=== PATIENT | male | born 1935 | race African-American/Black ===

== ENCOUNTER 2017-08-30 17:20 | Inpatient (IN) | payer SELFPAY ==
[~2017-08-30] VITALS: Ht 170.2 cm; Wt 93.4 kg
[2017-08-30 17:28] VITALS: BP 114/75
[2017-08-30] MEDS ORDERED: FUROSEMIDE80 M1 ORAL (17:28)
[2017-08-30] MEDS ORDERED: CARVEDILOL25 MG ORAL (17:28)
[2017-08-30] MEDS ORDERED: XARELTO10 MG ORAL (17:28)
[2017-08-30] MEDS ORDERED: HYDRALAZINE HCL50 MG ORAL (17:28)
[2017-08-30] MEDS ORDERED: LISINOPRIL5 MG ORAL (17:28)
[2017-08-30 18:12] LABS: BASOPHILS % (AUTO) 1.5 % (0.0-2.0); EOSINOPHILS % (AUTO) 7.4 % (0.0-3.0); HEMATOCRIT 27.8 % (42.0-52.0); HEMOGLOBIN 8.6 G/DL (14.2-18.0); LYMPHOCYTES % (AUTO) 18.7 % (20.0-45.0); MEAN CORPUSCULAR VOLUME 90 FL (80-99); MONOCYTES % (AUTO) 12.2 % (1.0-10.0); NEUTROPHILS % (AUTO) 60.2 % (45.0-75.0); PLATELET COUNT 215 K/UL (150-450); RED CELL DISTRIBUTION WIDTH 14.3 % (11.6-14.8); WHITE BLOOD COUNT 4.2 K/UL (4.8-10.8)
[2017-08-30 18:16] LABS: INR 1.1 (0.9-1.1)
[2017-08-30 18:25] LABS: ANION GAP 11 mmol/L (5-15); BLOOD UREA NITROGEN 33 mg/dL (7-18); CALCIUM 8.9 MG/DL (8.5-10.1); CARBON DIOXIDE 26 MMOL/L (21-32); CHLORIDE 106 MMOL/L (98-107); POTASSIUM 4.3 MMOL/L (3.5-5.1); SODIUM 143 MMOL/L (136-145)
[2017-08-30 18:28] LABS: APPEARANCE,URINE CLEAR; BILIRUBIN, URINE NEGATIVE (NEGATIVE); GLUCOSE, URINE (UA) NEGATIVE (NEGATIVE); KETONES,URINE NEGATIVE (NEGATIVE); LEUKOCYTE ESTERASE ,URINE 3+ (NEGATIVE); NITRITE,URINE NEGATIVE (NEGATIVE); PH,URINE 5 (4.5-8.0); PROTEIN,URINE 2+ (NEGATIVE); UROBILINOGEN,URINE NORMAL MG/DL (0.0-1.0)
[2017-08-30 18:29] LABS: ALANINE AMINOTRANSFERASE 17 U/L (12-78); ALBUMIN 3.2 G/DL (3.4-5.0); ALBUMIN/GLOBULIN RATIO 0.7 (1.0-2.7); ALKALINE PHOSPHATASE 40 U/L (46-116); ASPARTATE AMINO TRANSFERASE 17 U/L (15-37); BILIRUBIN,TOTAL 0.6 MG/DL (0.2-1.0)
[2017-08-30 18:31] LABS: COLOR,URINE YELLOW
--- NOTE | 2017-08-30 18:42 | Emergency Room Report ---
History of Present Illness General Chief Complaint: Dyspnea/Respdistress Source: Patient Present Illness HPI This patient has a history of congestive heart failure. He states that he has been having worsening shortness of breath over the past 3 days. He states he's also noted that his abdomen has become more distended in both his legs become more swollen. He states that he ran out of his Lasix about one week ago. He states he was unable to get to the pharmacy to get a refill. He denies cough or congestion. He denies fever or chills. He denies nausea or vomiting. He has no other complaints. Allergies: Coded Allergies: No Known Allergies (Unverified , 08/30/17) Patient History Past Medical History: see triage record, HTN, FL, CAD, CHF Social History: Denies: smoking, alcohol use, drug use Reviewed Nursing Documentation: PMH: Agreed; PSxH: Agreed Nursing Documentation-PMH Hx Cardiac Problems: Yes - chf Review of Systems All Other Systems: negative except mentioned in HPI Physical Exam Vital Signs Date Time Temp Pulse Resp B/P (MAP) Pulse Ox O2 Delivery O2 Flow Rate FiO2 08/30/17 17:18 98.2 98 20 140/79 94 Nasal Cannula 3.0 98.2 Sp02 EP Interpretation: reviewed, normal General Appearance: no apparent distress, alert, GCS 15, non-toxic Head: normocephalic, atraumatic Eyes: bilateral eye normal inspection, bilateral eye PERRL ENT: hearing grossly normal, normal pharynx, no angioedema, normal voice Neck: full range of motion, supple/symm/no masses Respiratory: chest non-tender, lungs clear, normal breath sounds, no respiratory distress, no retraction, no accessory muscle use, speaking full sentences Cardiovascular #1: regular rate, rhythm, other - 3+pitting edema BLE Gastrointestinal: normal bowel sounds, non tender, soft, no guarding, no rebound, distended Rectal: deferred Musculoskeletal: back normal, normal range of motion, non-tender Neurologic: alert, oriented x3, responsive, motor strength/tone normal, sensory intact, speech normal Psychiatric: judgement/insight normal, memory normal, mood/affect normal, no suicidal/homicidal ideation Skin: normal color, no rash, warm/dry, well hydrated Medical Decision Making Diagnostic Impression: Primary Impression: CHF exacerbation Additional Impressions: Anemia Acute kidney injury Atrial fibrillation ER Course This patient presents a CHF exacerbation. He has physical exam findings consistent with right-sided heart failure. He has ascites and 3+ pitting edema. He also has anemia of uncertain chronicity. He has kidney disease that is likely baseline but I do not have any comparison labs available. Patient is also found to have atrial fibrillation. The patient is unaware if he has had this in the past. Patient had run out of his Lasix. He is given 40 of Lasix IV here in the emergency department. He remained stable without any respiratory symptoms. He is admitted for further diuresis and monitoring. Laboratory Tests Test 08/30/17 17:40 08/30/17 18:10 White Blood Count 4.2 K/UL (4.8-10.8) L Red Blood Count 3.10 M/UL (4.70-6.10) L Hemoglobin 8.6 G/DL (14.2-18.0) L Hematocrit 27.8 % (42.0-52.0) L Mean Corpuscular Volume 90 FL (80-99) Mean Corpuscular Hemoglobin 27.7 PG (27.0-31.0) Mean Corpuscular Hemoglobin Concent 30.9 G/DL (32.0-36.0) L Red Cell Distribution Width 14.3 % (11.6-14.8) Platelet Count 215 K/UL (150-450) Mean Platelet Volume 7.4 FL (6.5-10.1) Neutrophils (%) (Auto) 60.2 % (45.0-75.0) Lymphocytes (%) (Auto) 18.7 % (20.0-45.0) L Monocytes (%) (Auto) 12.2 % (1.0-10.0) H Eosinophils (%) (Auto) 7.4 % (0.0-3.0) H Basophils (%) (Auto) 1.5 % (0.0-2.0) Prothrombin Time 12.0 SEC (9.30-11.50) H Prothrombin Time INR 1.1 (0.9-1.1) PTT 32 SEC (23-33) Sodium Level 143 MMOL/L (136-145) Potassium Level 4.3 MMOL/L (3.5-5.1) Chloride Level 106 MMOL/L (98-107) Carbon Dioxide Level 26 MMOL/L (21-32) Anion Gap 11 mmol/L (5-15) Blood Urea Nitrogen 33 mg/dL (7-18) H Creatinine 2.0 MG/DL (0.55-1.30) H Estimate Glomerular Filtration Rate mL/min (>60) Glucose Level 123 MG/DL (74-106) H Calcium Level 8.9 MG/DL (8.5-10.1) Total Bilirubin 0.6 MG/DL (0.2-1.0) Aspartate Amino Transferase (AST) 17 U/L (15-37) Alanine Aminotransferase (ALT) 17 U/L (12-78) Alkaline Phosphatase 40 U/L (46-116) L Troponin I 0.027 ng/mL (0.000-0.056) Pro-B-Type Natriuretic Peptide 81221 pg/mL (0-125) H Total Protein 8.1 G/DL (6.4-8.2) Albumin 3.2 G/DL (3.4-5.0) L Globulin 4.9 g/dL Albumin/Globulin Ratio 0.7 (1.0-2.7) L Urine Color Yellow Urine Appearance Clear Urine pH 5 (4.5-8.0) Urine Specific [place] 1.015 (1.005-1.035) Urine Protein 2+ (NEGATIVE) H Urine Glucose (UA) Negative (NEGATIVE) Urine Ketones Negative (NEGATIVE) Urine Occult Blood 4+ (NEGATIVE) H Urine Nitrite Negative (NEGATIVE) Urine Bilirubin Negative (NEGATIVE) Urine Urobilinogen Normal MG/DL (0.0-1.0) Urine Leukocyte Esterase 3+ (NEGATIVE) H Urine RBC Pending Urine WBC Pending Urine Squamous Epithelial Cells Pending Urine Bacteria Pending EKG Diagnostic Results Rate: normal Rhythm: other - A.fib Rhythm Strip Diag. Results EP Interpretation: yes Rate: 80's Rhythm: other - A.fib Chest X-Ray Diagnostic Results Chest X-Ray Diagnostic Results : Chest X-Ray Ordered: Yes # of Views/Limited/Complete: 1 View Indication: Shortness of Breath EP Interpretation: Yes Interpretation: other - Cardiomegaly Impression: Other - Cardiomegaly Electronically Signed by: Gil Last Vital Signs Date Time Temp Pulse Resp B/P (MAP) Pulse Ox O2 Delivery O2 Flow Rate FiO2 08/30/17 17:28 90 23 Room Air 3.0 08/30/17 17:28 98.2 114/75 100 98.2 Disposition: ADMITTED INPATIENT Condition: Serious CLAUDETTE DICKERSON D.O. Aug 30, 2017 18:42
[2017-08-30 19:50] VITALS: BP 130/66
[2017-08-30 20:00] VITALS: BP 114/60
[2017-08-30] MEDS ORDERED: Carvedilol 25mg Tab ORAL SCH (21:30)
[2017-08-30] MEDS: Xarelto 15mg tab ORAL SCH (22:23)
[2017-08-30] MEDS: Nitroglycerin 2% oint pkt TOPIC SCH (22:24)
[2017-08-31] VITALS: BP 105/63
[2017-08-31] MEDS: HydrALAZINE 25mg tab ORAL SCH ×4 (00:44→18:17)
--- NOTE | 2017-08-31 02:00 | Consultation ---
DATE OF CONSULTATION: 08/30/2017 CARDIOLOGY CONSULTATION CONSULTING PHYSICIAN: Kieran Cordero M.D. REQUESTING PHYSICIAN: Kt Waldron M.D. REASON FOR CONSULTATION: Acute on chronic congestive heart failure. HISTORY OF PRESENT ILLNESS: This is an 81-year-old male. He is usually on diuretics, but his prescription ran out over a week ago. He was unable to fill it. He notes progressive shortness of breath and leg swelling over the past three days predominantly and also abdominal bloating. He denies any chest pain, cough, congestion, sputum production, nausea, vomiting or diarrhea. He has had episodes like this in the past. PAST MEDICAL HISTORY: Coronary artery disease, history of myocardial infarction, history of congestive heart failure, and hypertension with hypertensive heart disease. SOCIAL HISTORY: Negative for smoking, alcohol, or substance abuse. FAMILY HISTORY: Not known. MEDICATIONS: Prior to admission, reviewed and reconciled. Compliance with medications as noted above. REVIEW OF SYSTEMS: A 10-point review of systems performed, all systems negative other than noted above. PHYSICAL EXAMINATION: VITAL SIGNS: Blood pressure 140/79, pulse 98, respiratory rate 20, afebrile, and oxygen saturation on 3 liters 94%. HEENT: Facial hair limit the exam of neck. Conjunctivae are pink. Sclerae are anicteric. Oropharynx clear. NECK: Supple. Cannot assess jugular venous pressure. LUNGS: Bilateral rales. CARDIAC: Irregularly irregular rhythm. Normal S1 and S2. A 1/6 systolic murmur at apex. ABDOMEN: Soft and nontender. Moderately obese with ascites. EXTREMITIES: Revealed 2+ bilateral dependent pitting edema. DIAGNOSTIC AND LABORATORY DATA: Chest x-ray reveals cardiomegaly and pulmonary venous congestion. EKG with atrial fibrillation, nonspecific ST-T wave changes. Ventricular rate 80. Urinalysis with 4+ occult blood, 2+ protein, and glucose 123. Pro-natriuretic peptide is over 25,000. Albumin 3.2. BUN 33, creatinine 2.0, sodium 143, potassium 4.3, and bicarbonate 26. White count 4.2 and hemoglobin 8.6. IMPRESSION: 1. Acute on chronic systolic and diastolic congestive heart failure due to noncompliance with baseline medication regimen. 2. Ischemic and hypertensive cardiomyopathy. 3. Anemia, etiology unclear. 4. Chronic kidney disease, question acute component. 5. Mild protein-calorie malnutrition. RECOMMENDATION: Cardiac monitoring. Repeat troponin level. Check thyroid function. Reassess chemistry panel. Adkins catheter. IV diuretics. Anemia panel. Titrate anti-failure regimen. Check lipid panel. Hold anti-platelet therapy until GI bleeding is ruled out. Kieran Cordero M.D. DR: OLINDA JOB#: [id number] CC:
[2017-08-31 04:00] VITALS: BP 103/61
[2017-08-31] MEDS: Nitroglycerin 2% oint pkt TOPIC SCH ×3 (05:45→18:17)
[2017-08-31 07:24] LABS: BASOPHILS % (AUTO) 0.9 % (0.0-2.0); EOSINOPHILS % (AUTO) 5.7 % (0.0-3.0); HEMATOCRIT 25.2 % (42.0-52.0); LYMPHOCYTES % (AUTO) 16.5 % (20.0-45.0); MEAN CORPUSCULAR VOLUME 90 FL (80-99); MONOCYTES % (AUTO) 10.2 % (1.0-10.0); NEUTROPHILS % (AUTO) 66.8 % (45.0-75.0); PLATELET COUNT 186 K/UL (150-450); RED BLOOD COUNT 2.81 M/UL (4.70-6.10); RED CELL DISTRIBUTION WIDTH 14.2 % (11.6-14.8); WHITE BLOOD COUNT 3.9 K/UL (4.8-10.8)
[2017-08-31 07:38] LABS: CHOLESTEROL 82 MG/DL (< 200); HDL CHOLESTEROL 41 MG/DL (40-60); TRIGLYCERIDES 30 MG/DL (30-150)
[2017-08-31 07:50] LABS: ALANINE AMINOTRANSFERASE 16 U/L (12-78); ALBUMIN/GLOBULIN RATIO 0.7 (1.0-2.7); ALKALINE PHOSPHATASE 33 U/L (46-116); ANION GAP 9 mmol/L (5-15); ASPARTATE AMINO TRANSFERASE 13 U/L (15-37); BILIRUBIN,TOTAL 0.6 MG/DL (0.2-1.0); BLOOD UREA NITROGEN 33 mg/dL (7-18); CALCIUM 8.7 MG/DL (8.5-10.1); CARBON DIOXIDE 28 MMOL/L (21-32); CHLORIDE 106 MMOL/L (98-107); POTASSIUM 4.4 MMOL/L (3.5-5.1); SODIUM 143 MMOL/L (136-145)
[2017-08-31 08:00] VITALS: BP 127/86
[2017-08-31 08:09] LABS: % IRON SATURATION 11 % (15-50); IRON 30 ug/dL (50-175); TOTAL IRON BINDING CAPACITY 263 ug/dL (250-450)
--- NOTE | 2017-08-31 09:54 | History & Physical ---
History and Physical History & Physicial HISTORY OF PRESENT ILLNESS: This is an 81-year-old male. He is usually on diuretics, but his prescription ran out over a week ago. He was unable to fill it. He notes progressive shortness of breath and leg swelling over the past three days predominantly and also abdominal bloating. He denies any chest pain, cough, congestion, sputum production, nausea, vomiting or diarrhea. He has had episodes like this in the past. PAST MEDICAL HISTORY: Coronary artery disease, history of myocardial infarction, history of congestive heart failure, and hypertension with hypertensive heart disease. SOCIAL HISTORY: Negative for smoking, alcohol, or substance abuse. FAMILY HISTORY: Not known. MEDICATIONS: Prior to admission, reviewed and reconciled. Compliance with medications as noted above. REVIEW OF SYSTEMS: A 10-point review of systems performed, all systems negative other than noted above. PHYSICAL EXAMINATION: VITAL SIGNS: Blood pressure 140/79, pulse 98, respiratory rate 20, afebrile, and oxygen saturation on 3 liters 94%. HEENT: Facial hair limit the exam of neck. Conjunctivae are pink. Sclerae are anicteric. Oropharynx clear. NECK: Supple. Cannot assess jugular venous pressure. LUNGS: Bilateral rales. CARDIAC: Irregularly irregular rhythm. Normal S1 and S2. A 1/6 systolic murmur at apex. ABDOMEN: Soft and nontender. Moderately obese with ascites. EXTREMITIES: Revealed 2+ bilateral dependent pitting edema. DIAGNOSTIC AND LABORATORY DATA: Chest x-ray reveals cardiomegaly and pulmonary venous congestion. EKG with atrial fibrillation, nonspecific ST-T wave changes. Ventricular rate 80. Urinalysis with 4+ occult blood, 2+ protein, and glucose 123. Pro-natriuretic peptide is over 25,000. Albumin 3.2. BUN 33, creatinine 2.0, sodium 143, potassium 4.3, and bicarbonate 26. White count 4.2 and hemoglobin 8.6. IMPRESSION: 1. Acute on chronic systolic and diastolic congestive heart failure due to noncompliance with baseline medication regimen. 2. Ischemic and hypertensive cardiomyopathy. 3. Anemia, etiology unclear. 4. Chronic kidney disease, question acute component. 5. Mild protein-calorie malnutrition. RECOMMENDATION: Cardiac monitoring. Repeat troponin level. Check thyroid function. Reassess chemistry panel. Adkins catheter. IV diuretics. Anemia panel. Titrate anti-failure regimen. Check lipid panel. Hold anti-platelet therapy until GI bleeding is ruled out. Vinnie Díaz Omar Syed MD Aug 31, 2017 09:54
--- NOTE | 2017-08-31 10:11 | Diagnostic Imaging Report ---
Indication: Shortness of breath Technique: One view of the chest Comparison: none Findings: The heart is markedly enlarged. The lungs and pleural spaces are clear. Impression: Cardiomegaly. No acute process
[2017-08-31] MEDS: Xarelto 15mg tab ORAL SCH (10:37)
[2017-08-31] MEDS: Carvedilol 25mg Tab ORAL SCH ×2 (10:37→20:17)
[2017-08-31] MEDS: Lisinopril 20mg tab ORAL SCH (10:37)
[2017-08-31 12:00] VITALS: BP 117/59
--- NOTE | 2017-08-31 13:37 | Cardiology Report ---
APPROVED REPORT EXAM: Two-dimensional and M-mode echocardiogram with Doppler and color Doppler. INDICATION Congestive Heart Failure M-Mode DIMENSIONS IVSd0.7 (0.7-1.1cm)Left Atrium (MM)5.5 (1.6-4.0cm) LVDd6.4 (3.5-5.6cm)Aortic Root4.1 (2.0-3.7cm) PWd1.3 (0.7-1.1cm)Aortic Cusp Exc.2.2 (1.5-2.0cm) IVSs0.9 cm LVDs5.7 (2.5-4.0cm) PWs1.6 cm Moderate left ventricular enlargement. Severe global left ventricular hypokinesis. Abnormal septal motion. Anterior wall dyskinesis. Left ventricular ejection fraction estimated to be 15-20 %. Increased E point-interventricular septal separation c/w left ventricular dysfunction. No evidence of left ventricular hypertrophy. Small circumferential pericardial effusion. Large posterior pleural effusion with debris noted. Moderate left atrial enlargement. Severe right atrial enlargement. Moderate right ventricular enlargement. Focal aortic valve sclerosis with adequate cusp excursion. Thickened mitral valve leaflets with normal excursion. Mitral annulus and aortic root calcification. Aortic root dilatation. Normal pulmonic valve structure. Normal tricuspid valve structure. IVC dilated at 3.0 cm without physiologic collapse suggestive of increased RA pressure. A color flow and spectral Doppler study was performed and revealed: Mild aortic regurgitation. Moderate to severe posteriorly eccentric mitral regurgitation. Mitral inflow indicates restrictive pattern, implying severely elevated left atrial pressure (Grade III). Severe tricuspid regurgitation. Tricuspid systolic velocities suggests peak right ventricular systolic pressure of 86 mmHg, consistent with severe pulmonary hypertension. Mild pulmonic regurgitation present.
[2017-08-31 16:00] VITALS: BP 113/71
[2017-08-31 20:00] VITALS: BP 102/63
[2017-09-01] VITALS: BP 111/70
--- NOTE | 2017-09-01 01:30 | Progress Note ---
DATE: 08/31/2017 CARDIOLOGY PROGRESS NOTE SUBJECTIVE: The patient has no new chest pain. No shortness of breath. Still some congestion. He is responding to diuretics. Monitored rhythm is atrial fibrillation. OBJECTIVE: VITAL SIGNS: Vitals 113/77, pulse 80, respirations 20, afebrile, and room air oxygen saturation 97%. LUNGS: Bilateral rales. HEART: Irregularly irregular rhythm. Normal S1, S2. ABDOMEN: Soft. EXTREMITIES: A 1+ edema. LABORATORY DATA: White count 3.9 and hemoglobin 8. Potassium 4.4, BUN 33, and creatinine 2.0. Troponin 0.037. LDL cholesterol 45. Iron saturation is 11%. Total iron is 30. Stool occult blood is negative. IMPRESSION: 1. Acute on chronic diastolic congestive heart failure. 2. Severe anemia. 3. Acute on chronic systolic congestive heart failure. 4. Severe anemia. 5. Dilated cardiomyopathy with ejection fraction less than 25%. 6. Chronic kidney disease. 7. Pulmonary hypertension. PLAN: 1. May need transfusion. 2. Continue diuresis. 3. Maximize anti-failure therapy. 4. DVT prophylaxis. 5. If performance status is adequate in the future, a defibrillator may be considered following an evaluation for reversible ischemia. Kieran Cordero M.D. DR: CAITLIN JOB#: [id number] CC:
[2017-09-01 04:00] VITALS: BP 121/78
[2017-09-01] MEDS: Nitroglycerin 2% oint pkt TOPIC SCH ×3 (05:34→17:19)
[2017-09-01] MEDS: HydrALAZINE 25mg tab ORAL SCH ×4 (05:34→17:19)
[2017-09-01 08:00] VITALS: BP 126/52
[2017-09-01] MEDS: Xarelto 15mg tab ORAL SCH (08:30)
[2017-09-01] MEDS: Carvedilol 25mg Tab ORAL SCH ×2 (08:30→20:58)
[2017-09-01] MEDS: Lisinopril 20mg tab ORAL SCH (08:30)
--- NOTE | 2017-09-01 08:42 | Pulmonology Progress Note ---
Assessment/Plan Assessment/Plan IMPRESSION: 1. Acute on chronic systolic and diastolic congestive heart failure due to noncompliance with baseline medication regimen. 2. Ischemic and hypertensive cardiomyopathy. 3. Anemia, etiology unclear. 4. Chronic kidney disease, question acute component. 5. Mild protein-calorie malnutrition. RECOMMENDATION: DC Adkins catheter. IV diuretics. Titrate anti-failure regimen. Resume Xarelto Dc planning for home in AM Subjective Interval Events: Hgb 8; feeling better Constitutional: Reports: no symptoms HEENT: Repors: no symptoms Respiratory: Reports: no symptoms Cardiovascular: Reports: no symptoms Gastrointestinal/Abdominal: Reports: no symptoms Allergies: Coded Allergies: No Known Allergies (Unverified , 08/30/17) Objective Last 24 Hour Vital Signs Date Time Temp Pulse Resp B/P (MAP) Pulse Ox O2 Delivery O2 Flow Rate FiO2 09/01/17 08:30 126/52 09/01/17 08:30 74 126/52 09/01/17 08:00 97.7 74 20 126/52 100 Room Air 97.7 09/01/17 05:34 121/78 09/01/17 05:34 121/78 09/01/17 04:00 79 09/01/17 04:00 98.0 80 20 121/78 97 Room Air 98.0 09/01/17 00:00 77 09/01/17 00:00 97.5 76 20 111/70 96 Room Air 97.5 09/01/17 00:00 108/70 08/31/17 20:17 91 110/65 08/31/17 20:00 98.6 91 20 102/63 97 Room Air 98.6 08/31/17 20:00 83 08/31/17 18:17 113/77 08/31/17 18:17 113/77 08/31/17 16:00 97.3 80 20 113/71 97 Room Air 97.3 08/31/17 16:00 71 08/31/17 12:42 117/59 08/31/17 12:41 117/59 08/31/17 12:00 75 08/31/17 12:00 97.6 75 20 117/59 97 Room Air 97.6 08/31/17 10:37 127/66 08/31/17 10:37 87 127/66 Intake and Output 08/31/17 09/01/17 19:00 07:00 Intake Total 295 ml 200 ml Output Total 700 ml 1200 ml Balance -405 ml -1000 ml Intake Oral 295 ml 200 ml Output Urine Total 700 ml 1200 ml General Appearance: no acute distress HEENT: normocephalic Respiratory/Chest: chest wall non-tender, lungs clear Cardiovascular: normal peripheral pulses, edema Abdomen: normal bowel sounds Microbiology Date/Time Source Procedure Growth Status 08/30/17 18:10 Urine,Clean Catch Urine Culture - Preliminary Resulted Current Medications Medications (Trade) Dose Ordered Sig/Saul Route PRN Reason Start Time Stop Time Status Last Admin Dose Admin Carvedilol (Coreg) 25 mg EVERY 12 HOURS ORAL 08/31/17 09:00 09/30/17 08:59 09/01/17 08:30 Furosemide (Lasix) 40 mg EVERY 12 HOURS IV 08/31/17 09:00 09/30/17 08:59 09/01/17 08:30 Hydralazine HCl (Apresoline) 25 mg Q6HR ORAL 08/31/17 00:00 09/30/17 00:00 09/01/17 05:34 Lisinopril (Prinivil) 20 mg DAILY ORAL 08/31/17 09:00 09/30/17 08:59 09/01/17 08:30 Nitroglycerin (Nitro-Bid) 1 inch TID@0600,1200,1800 TOPIC 08/30/17 21:30 09/29/17 21:29 09/01/17 05:34 Potassium Chloride (K-Dur) 20 meq DAILY ORAL 08/30/17 21:30 09/29/17 21:29 09/01/17 08:30 Rivaroxaban (Xarelto) 15 mg DAILY ORAL 08/30/17 21:40 09/29/17 21:39 09/01/17 08:30 Kt Waldron MD Sep 01, 2017 08:42
[2017-09-01 12:00] VITALS: BP 104/62
[2017-09-01 16:00] VITALS: BP 115/96
[2017-09-01 20:00] VITALS: BP 115/72
[2017-09-02] VITALS: BP 111/58
[2017-09-02] MEDS: HydrALAZINE 25mg tab ORAL SCH ×2 (00:11→06:07)
--- NOTE | 2017-09-02 02:30 | Progress Note ---
DATE: 09/01/2017 CARDIOLOGY PROGRESS NOTE SUBJECTIVE: Less shortness of breath. Leg swelling. Catheter removed. OBJECTIVE: VITAL SIGNS: Blood pressure 126/52, pulse 74 and respiratory rate 20. LUNGS: With diminished breath sounds. CARDIAC: Regular rhythm and rate. Normal S1 and S2 with a 1/6 systolic murmur at apex. ABDOMEN: Soft. EXTREMITIES: With dependent edema. IMPRESSION: 1. Acute on chronic systolic congestive heart failure. 2. Ischemic and hypertensive cardiomyopathy. 3. Pulmonary hypertension. 4. Mild protein-calorie malnutrition. PLAN: 1. Transition from IV to oral diuretics. 2. Continue remainder anti-failure regimen without change. 3. Outpatient dietary restriction of sodium. 4. Agree with discharge planning. Kieran Cordero M.D. DR: ELODIA JOB#: [id number] CC:
[2017-09-02 04:00] VITALS: BP 110/80
[2017-09-02] MEDS: Nitroglycerin 2% oint pkt TOPIC SCH (06:07)
[2017-09-02 06:56] LABS: BASOPHILS % (AUTO) 1.1 % (0.0-2.0); EOSINOPHILS % (AUTO) 5.6 % (0.0-3.0); HEMATOCRIT 24.9 % (42.0-52.0); HEMOGLOBIN 8.4 G/DL (14.2-18.0); LYMPHOCYTES % (AUTO) 14.9 % (20.0-45.0); MEAN CORPUSCULAR VOLUME 89 FL (80-99); NEUTROPHILS % (AUTO) 67.5 % (45.0-75.0); PLATELET COUNT 186 K/UL (150-450); RED BLOOD COUNT 2.79 M/UL (4.70-6.10); WHITE BLOOD COUNT 4.3 K/UL (4.8-10.8)
[2017-09-02 07:14] LABS: ALANINE AMINOTRANSFERASE 12 U/L (12-78); ALBUMIN 2.9 G/DL (3.4-5.0); ALBUMIN/GLOBULIN RATIO 0.7 (1.0-2.7); ALKALINE PHOSPHATASE 31 U/L (46-116); ANION GAP 6 mmol/L (5-15); ASPARTATE AMINO TRANSFERASE 9 U/L (15-37); BILIRUBIN,TOTAL 0.8 MG/DL (0.2-1.0); BLOOD UREA NITROGEN 37 mg/dL (7-18); CALCIUM 8.7 MG/DL (8.5-10.1); CARBON DIOXIDE 30 MMOL/L (21-32); CHLORIDE 106 MMOL/L (98-107); CREATININE 2.4 MG/DL (0.55-1.30); POTASSIUM 4.1 MMOL/L (3.5-5.1); SODIUM 142 MMOL/L (136-145)
[2017-09-02 08:00] VITALS: BP 107/64
[2017-09-02 08:53] VITALS: BP 107/64
[2017-09-02] MEDS: Xarelto 15mg tab ORAL SCH (08:53)
[2017-09-02] MEDS: Lisinopril 20mg tab ORAL SCH (08:53)
[2017-09-02] MEDS: Carvedilol 25mg Tab ORAL SCH (08:53)
--- NOTE | 2017-09-02 09:03 | Pulmonology Progress Note ---
Assessment/Plan Assessment/Plan IMPRESSION: 1. Acute on chronic systolic and diastolic congestive heart failure due to noncompliance with baseline medication regimen. 2. Ischemic and hypertensive cardiomyopathy. 3. Anemia, etiology unclear. 4. Chronic kidney disease 5. Mild protein-calorie malnutrition. 6. Ascites RECOMMENDATION: Will request abd paracentesis DC planning for home Subjective Interval Events: Noted abdominal distention Constitutional: Reports: no symptoms HEENT: Repors: no symptoms Respiratory: Reports: dry cough Cardiovascular: Reports: no symptoms Genitourinary: Reports: no symptoms Neurologic: Reports: no symptoms Allergies: Coded Allergies: No Known Allergies (Unverified , 08/30/17) Objective Last 24 Hour Vital Signs Date Time Temp Pulse Resp B/P (MAP) Pulse Ox O2 Delivery O2 Flow Rate FiO2 09/02/17 08:53 107/64 09/02/17 08:53 85 107/64 09/02/17 08:00 99.0 85 20 107/64 98 Room Air 99.0 09/02/17 06:07 110/80 09/02/17 06:07 110/80 09/02/17 04:00 99.1 68 19 110/80 98 Room Air 99.1 09/02/17 04:00 71 09/02/17 00:11 115/72 09/02/17 00:00 98.1 79 20 111/58 96 Room Air 98.1 09/02/17 00:00 75 09/01/17 20:58 72 115/72 09/01/17 20:00 76 09/01/17 20:00 98.1 72 18 115/72 96 Room Air 98.1 09/01/17 17:19 115/96 09/01/17 17:19 115/96 09/01/17 16:00 60 09/01/17 16:00 97.8 63 18 115/96 96 Room Air 97.8 09/01/17 12:55 104/62 09/01/17 12:53 104/62 09/01/17 12:00 60 09/01/17 12:00 98.0 73 20 104/62 97 Room Air 98.0 Intake and Output 09/01/17 09/02/17 19:00 07:00 Intake Total 360 ml 240 ml Output Total 600 ml 1150 ml Balance -240 ml -910 ml Intake Oral 360 ml 240 ml Output Urine Total 600 ml 1150 ml # Voids 1 General Appearance: no acute distress HEENT: normocephalic Respiratory/Chest: chest wall non-tender, decreased breath sounds Cardiovascular: normal peripheral pulses, normal rate Abdomen: normal bowel sounds, distended Extremities: no cyanosis Skin: no rash Microbiology Date/Time Source Procedure Growth Status 08/30/17 18:10 Urine,Clean Catch Urine Culture - Preliminary Resulted Laboratory Tests 09/02/17 06:00: White Blood Count 4.3L, Red Blood Count 2.79L, Hemoglobin 8.4L, Hematocrit 24.9L , Mean Corpuscular Volume 89, Mean Corpuscular Hemoglobin 30.2, Mean Corpuscular Hemoglobin Concent 33.9, Red Cell Distribution Width 14.0, Platelet Count 186, Mean Platelet Volume 7.6, Neutrophils (%) (Auto) 67.5, Lymphocytes (% ) (Auto) 14.9L, Monocytes (%) (Auto) 11.0H, Eosinophils (%) (Auto) 5.6H, Basophils (%) (Auto) 1.1, Sodium Level 142, Potassium Level 4.1, Chloride Level 106, Carbon Dioxide Level 30, Anion Gap 6, Blood Urea Nitrogen 37H, Creatinine 2.4H, Estimat Glomerular Filtration Rate , Glucose Level 95, Calcium Level 8.7, Magnesium Level 2.1, Total Bilirubin 0.8, Aspartate Amino Transf (AST/SGOT) 9L, Alanine Aminotransferase (ALT/SGPT) 12, Alkaline Phosphatase 31L, Pro-B-Type Natriuretic Peptide 25203I, Total Protein 7.3, Albumin 2.9L, Globulin 4.4, Albumin/Globulin Ratio 0.7L Current Medications Medications (Trade) Dose Ordered Sig/Saul Route PRN Reason Start Time Stop Time Status Last Admin Dose Admin Carvedilol (Coreg) 25 mg EVERY 12 HOURS ORAL 08/31/17 09:00 09/30/17 08:59 09/02/17 08:53 Furosemide (Lasix) 40 mg EVERY 12 HOURS IV 08/31/17 09:00 09/30/17 08:59 09/02/17 08:52 Hydralazine HCl (Apresoline) 25 mg Q6HR ORAL 08/31/17 00:00 09/30/17 00:00 09/02/17 06:07 Lisinopril (Prinivil) 20 mg DAILY ORAL 08/31/17 09:00 09/30/17 08:59 09/02/17 08:53 Nitroglycerin (Nitro-Bid) 1 inch TID@0600,1200,1800 TOPIC 08/30/17 21:30 09/29/17 21:29 09/02/17 06:07 Potassium Chloride (K-Dur) 20 meq DAILY ORAL 08/30/17 21:30 09/29/17 21:29 09/02/17 08:52 Rivaroxaban (Xarelto) 15 mg DAILY ORAL 08/30/17 21:40 09/29/17 21:39 09/02/17 08:53 Kt Waldron MD Sep 02, 2017 09:03
--- NOTE | 2017-09-02 23:00 | Progress Note ---
DATE: 09/02/2017 CARDIOLOGY PROGRESS NOTE SUBJECTIVE: Shortness of breath has improved significantly. The patient has no pain. OBJECTIVE: VITAL SIGNS: Blood pressure 107/64, pulse 85, respirations 18, and temperature 99.1. LUNGS: Diminished breath sounds. No wheezing. HEART: Regular rhythm and rate. Normal S1, S2. There is a 1/6 systolic apical murmur. ABDOMEN: Soft. Slight ascites. EXTREMITIES: 1+ edema. IMPRESSION: 1. Acute on chronic systolic congestive heart failure. 2. Pulmonary hypertension. 3. Ischemic and hypertensive cardiomyopathy. PLAN: 1. Hold diuretics. 2. Outpatient compliance will be stressed. 3. Remainder of anti-failure regimen reviewed and reconciled for discharge. 4. Outpatient followup. 5. Monitor weights and adjust diuretics accordingly based on outpatient lifestyle, diet, and oral intake. Kieran Cordero M.D. DR: CAITLIN JOB#: [id number] CC:
--- NOTE | 2017-09-03 08:56 | Discharge Summary ---
Discharge Summary Discharge Summary _ DATE OF ADMISSION: 08/30/2017 DATE OF DISCHARGE: 09/02/2017 CONSULTANTS: Dr. Kieran Cordero BRIEF HOSPITAL COURSE: Patient is an 81-year-old -[place] male, with history of coronary artery disease, VA, CHF, hypertension with hypertensive heart disease presented to ED complaining of progressive shortness of breath and leg swelling over the past 3 days, and also abdominal bloating. He was usually on diuretics and prescription ran out over a week ago. He denied fever or chills, denied nausea or vomiting. On evaluation at ED, physical examination was consistent with right-sided heart failure. He had ascites and 3+ pitting edema. He also had anemia of uncertain chronicity he had kidney disease that is likely baseline. BNP was over 25,000. EKG was in atrial fibrillation at controlled rate. Chest x-ray showed cardiomegaly with no acute process. He was then admitted for CHF exacerbation. Patient underwent cardiac monitoring. Troponins were monitored. He was seen by machine maintenance mechanic. He was given anti-failure regimen, Coreg and lisinopril. He was given Lasix for diuresis and was also on hydralazine 25 mg every 6 hours. He was given potassium supplements. Echocardiogram done showed left ventricular ejection fraction 15-20% with severe global left ventricular hypokinesis, abnormal septal motion, anterior wall dyskinesis. There was mild aortic regurgitation, moderate to severe mitral regurgitation, severe pulmonary hypertension. He was also noted to have anemia, anemia workup showed low serum iron at 30. Stool OB was negative. He was eventually re- started on Xarelto. Shortness of breath significantly improved. Troponins were negative. He was then cleared for discharge home. FINAL DIAGNOSES: Acute on chronic systolic and diastolic congestive heart failure due to noncompliance with baseline medication regimen Ischemic and hypertensive cardiomyopathy Anemia Chronic kidney disease Mild protein calorie malnutrition Ascites Pulmonary hypertension DISPOSITION: Patient was discharged home. DISCHARGE MEDICATIONS: Refer to Discharge Medication List. DISCHARGE INSTRUCTIONS: Follow up with PCP in a week. Will need paracentesis as outpatient. I have been assigned to dictate discharge summary on this account, and I was not involved in the patient's management. Pauline Melissa NP Sep 03, 2017 08:56
== END 2017-09-02 12:06 | disposition home or self-care (01) | DRG 291 ==
LOC: EDBD 17:20 → EMR 17:53 → ENRESERV 18:28 → 2E 18:35 → EDBEDREQ 18:54
DX: I13.0 Hypertensive heart and chronic kidney disease with heart failure and stage 1 through stage 4 chronic kidney disease, or unspecified chronic kidney disease (principal); I50.43 Acute on chronic combined systolic (congestive) and diastolic (congestive) heart failure; R18.8 Other ascites; E44.1 Mild protein-calorie malnutrition; N18.9 Chronic kidney disease, unspecified; I27.20 Pulmonary hypertension, unspecified; I25.5 Ischemic cardiomyopathy; I48.91 Unspecified atrial fibrillation; I25.10 Atherosclerotic heart disease of native coronary artery without angina pectoris; I25.2 Old myocardial infarction; D64.9 Anemia, unspecified; I34.0 Nonrheumatic mitral (valve) insufficiency; Z79.01 Long term (current) use of anticoagulants; Z68.32 Body mass index [BMI] 32.0-32.9, adult
CPT/HCPCS: 36415; 71045; 80053; 80061; 81003; 82270; 82607; 82746; 83540; 83550; 83735; 83880; 84443; 84484; 85025; 85610; 85730; 87086; 87181; 93005; 93306; 99285; J8499

== ENCOUNTER 2017-10-07 06:13 | Inpatient (IN) | payer MEDICAID ==
[~2017-10-07] VITALS: Ht 167.6 cm; Wt 73.5 kg
[2017-10-07] VITALS (7 sets, daily range): BP systolic 92–116; BP diastolic 55–73
[~2017-10-07 06:13] MED LIST: CARVEDILOL25 MG ORAL; FUROSEMIDE80 M1 ORAL; HYDRALAZINE HCL50 MG ORAL; LISINOPRIL5 MG ORAL; XARELTO10 MG ORAL
[2017-10-07] MEDS ORDERED: Morphine Sulfate 2mg/ml Inj IVP ONE (06:45)
--- NOTE | 2017-10-07 06:58 | Emergency Room Report ---
History of Present Illness General Chief Complaint: Abdominal Pain Source: Patient, EMS Present Illness HPI Patient presents with abdominal pain. Patient has a history of cirrhosis and ascites. He last had 5 L taken off of his abdomen 2-1/2 weeks ago. His abdomen is distended and painful diffusely. He is urinating and moving his bowels. She states his bowels have been dark. He denies any vomiting. He is somewhat short of breath. He has a nonproductive cough that has clear phlegm. He rates the pain at 10/10 diffuse constant nonradiating. The breathing in part is due to the pressure from his stomach. No fevers. No extremity pain. The legs are swollen also. Some decrease in urine output. No confusion, headache, dizziness. Prior alcohol abuse. He was admitted here in August. Discharged 09/02 D/C Dx: Acute on chronic systolic and diastolic congestive heart failure due to noncompliance with baseline medication regimen Ischemic and hypertensive cardiomyopathy Anemia Chronic kidney disease Mild protein calorie malnutrition Ascites Pulmonary hypertension His ejection fraction was 10-15%. He was treated with Xarelto. He never followed up with inpatient MDs after discharge. Allergies: Coded Allergies: No Known Allergies (Unverified , 08/30/17) Patient History Past Medical History: see triage record, old chart reviewed Past Surgical History: other - paracentesis Social History: Reports: alcohol use - in past, none now; Denies: smoking Social History Narrative lives with his sister - born in [facility] Reviewed Nursing Documentation: PMH: Agreed; PSxH: Agreed Nursing Documentation-PMH Past Medical History: No History, Except For Hx Cardiac Problems: Yes - CHF, Afib, HTN Hx Hypertension: Yes Hx Cancer: No Hx Gastrointestinal Problems: Yes - Acsites Hx Neurological Problems: No Review of Systems All Other Systems: negative except mentioned in HPI Physical Exam Vital Signs Date Time Temp Pulse Resp B/P (MAP) Pulse Ox O2 Delivery O2 Flow Rate FiO2 10/07/17 06:12 100 16 122/86 99 Room Air 10/07/17 06:31 99.2 99.2 General Appearance: other - Distended abdomen, Chronically Ill Head: normocephalic, atraumatic Eyes: bilateral eye PERRL, bilateral eye conjunctivae pale ENT: moist mucus membranes Neck: supple Respiratory: decreased breath sounds, crackles Cardiovascular #1: regular rate, rhythm Cardiovascular #2: 2+ radial (L) Gastrointestinal: no rebound, distended, guarding, tenderness, hernia - Umbilical hernia Musculoskeletal: other - Spider habitus Neurologic: alert, oriented x3, motor strength/tone normal, DTRs symmetric, sensory intact Psychiatric: mood/affect normal Skin: pallor Procedures Critical Care Time Critical Care Time Total Critical Care Time: 45 min bedside evaluation and treatment excludes procedures (EKG, CVP). Reason for critical care: hyperkalemia, hypotension, renal failure Possible complications: hypotension, hypertension, OR, shock, arrhythmias, metabolic acidosis, end organ damage, respiratory failure. Interventions: CVP, treatment of hyperkalemia, judicious fluid administration, repeat evaluations Course: Patient presents with abdominal pain with h/o ascites. Evaluation reveals renal failure and hyperkalemia. No IV access - CVP inserted. Hyperkalemia treated. Transient unresponsiveness associated with hypotension and tachycardia. Improved with fluid bolus and positioning. Transient hypoxia improved with positioning and improved mentation. Discussion of intubation with patient who refuses this. UTI treated with antibiotics. Condition improved. Await US paracentesis. Consultations: nursing staff, EMS, admitting MD, ultrasound Performed by: Dr. Lopez Tolerated well condition = serious Central Line Central Line : Consent: Verbal Central Line Lumen: triple Maximal Sterile Barrier Tech: yes cap, yes mask, yes sterile gown, yes sterile gloves, yes large sterile sheet, yes hand hygiene, yes chlorhexidine prep Central Line Postion: femoral (R) Anesthesia: Lidocaine cc's of anesthesia: 2 Complications: none Central Line Post Position: sutured, good blood return Attempts: One Patient Tolerated: Well Complications: None Medical Decision Making Diagnostic Impression: Primary Impression: Hyperkalemia Additional Impressions: Renal failure Qualified Codes: N17.9 - Acute kidney failure, unspecified; N18.3 - Chronic kidney disease, stage 3 (moderate) Ascites Qualified Codes: K70.31 - Alcoholic cirrhosis of liver with ascites UTI (urinary tract infection) Qualified Codes: N39.0 - Urinary tract infection, site not specified Atrial fibrillation Qualified Codes: I48.2 - Chronic atrial fibrillation Leukopenia Qualified Codes: D72.819 - Decreased white blood cell count, unspecified Hypoxia ER Course Patient presents with abdominal pain with history of ascites. Differential includes ascites, spontaneous bacterial peritonitis, diverticulitis amongst others. He is evaluated with labs chest x-ray and abdominal film. Ultrasound paracentesis is ordered also. EKG without acute changes. Chest x-ray poor inspiration and ascites, no CHF. Abdominal films ascites. Labs are significant for renal failure and hyperkalemia. These will be treated and the patient needs to be admitted. Ultrasound has been notified regarding the paracentesis that the patient will be admitted to the hospital. Concern over hepatorenal syndrome. At risk with prior h/o cardiomyopathy. Ammonia normal. Patient had period of unresponsiveness. Possibly related to low BP. Discussed intubation with patient and he refuses. O2 sats and BP better with some hydration and O2. HR also better. Hyperkalemia treated with calcium, Kayexelate and bicarb. Admit telemetry Dr. Cabrera. Ms. Lester discussed intubation with patient and he agreed to have full treatment. Laboratory Tests Test 10/07/17 07:22 10/07/17 07:55 10/07/17 09:35 10/07/17 10:25 White Blood Count 1.4 K/UL (4.8-10.8) *L Red Blood Count 3.67 M/UL (4.70-6.10) L Hemoglobin 10.6 G/DL (14.2-18.0) L Hematocrit 33.6 % (42.0-52.0) L Mean Corpuscular Volume 92 FL (80-99) Mean Corpuscular Hemoglobin 28.8 PG (27.0-31.0) Mean Corpuscular Hemoglobin Concent 31.5 G/DL (32.0-36.0) L Red Cell Distribution Width 14.7 % (11.6-14.8) Platelet Count 183 K/UL (150-450) Mean Platelet Volume 6.7 FL (6.5-10.1) Neutrophils (%) (Auto) % (45.0-75.0) Lymphocytes (%) (Auto) % (20.0-45.0) Monocytes (%) (Auto) % (1.0-10.0) Eosinophils (%) (Auto) % (0.0-3.0) Basophils (%) (Auto) % (0.0-2.0) Differential Total Cells Counted 100 Neutrophils % (Manual) 69 % (45-75) Lymphocytes % (Manual) 15 % (20-45) L Monocytes % (Manual) 10 % (1-10) Eosinophils % (Manual) 3 % (0-3) Basophils % (Manual) 0 % (0-2) Band Neutrophils 3 % (0-8) Platelet Estimate Adequate Platelet Morphology Normal Hypochromasia 1+ Anisocytosis 1+ Acanthocytes (Spur Cells) 1+ Sodium Level 138 MMOL/L (136-145) Potassium Level 5.9 MMOL/L (3.5-5.1) H Chloride Level 104 MMOL/L (98-107) Carbon Dioxide Level 23 MMOL/L (21-32) Anion Gap 10 mmol/L (5-15) Blood Urea Nitrogen 36 mg/dL (7-18) H Creatinine 2.5 MG/DL (0.55-1.30) H Estimate Glomerular Filtration Rate mL/min (>60) Glucose Level 89 MG/DL (74-106) Calcium Level 8.4 MG/DL (8.5-10.1) L Total Bilirubin 1.0 MG/DL (0.2-1.0) Aspartate Amino Transferase (AST) 33 U/L (15-37) Alanine Aminotransferase (ALT) 41 U/L (12-78) Alkaline Phosphatase 52 U/L (46-116) Total Creatine Kinase 171 U/L (26-308) Troponin I 0.017 ng/mL (0.000-0.056) Total Protein 8.0 G/DL (6.4-8.2) Albumin 3.0 G/DL (3.4-5.0) L Globulin 5.0 g/dL Albumin/Globulin Ratio 0.6 (1.0-2.7) L Lipase 118 U/L (73-393) Ammonia 19 umol/L (11-32) Urine Color Pale yellow Urine Appearance Slightly cloudy Urine pH 5 (4.5-8.0) Urine Specific [place] 1.010 (1.005-1.035) Urine Protein 1+ (NEGATIVE) H Urine Glucose (UA) Negative (NEGATIVE) Urine Ketones Negative (NEGATIVE) Urine Occult Blood 3+ (NEGATIVE) H Urine Nitrite Negative (NEGATIVE) Urine Bilirubin Negative (NEGATIVE) Urine Urobilinogen Normal MG/DL (0.0-1.0) Urine Leukocyte Esterase 3+ (NEGATIVE) H Urine RBC 5-10 /HPF (0 - 0) H Urine WBC 5-10 /HPF (0 - 0) H Urine Squamous Epithelial Cells Occasional /LPF Urine Bacteria Occasional /HPF (NONE) Prothrombin Time 13.0 SEC (9.30-11.50) H Prothrombin Time INR 1.2 (0.9-1.1) H PTT 29 SEC (23-33) EKG Diagnostic Results Rate: normal Rhythm: other - Atrial fibrillation ST Segments: no acute changes Rhythm Strip Diag. Results EP Interpretation: yes Rhythm: no PVC's, no ectopy, other - Atrial fibrillation Chest X-Ray Diagnostic Results Chest X-Ray Diagnostic Results : Chest X-Ray Ordered: Yes # of Views/Limited/Complete: 1 View Indication: Shortness of Breath EP Interpretation: Yes Interpretation: no consolidation, no effusion, no pneumothorax, other - ascites Impression: Other Electronically Signed by: Electronically signed by Kieran Lopez MD Other X-Ray Diagnostic Results Other X-Ray Diagnostic Results : X-Ray ordered: abd # of Views/Limited Vs Complete: 2 View Indication: Other EP Interpretation: Yes Interpretation: no sbo, other - ascites, paucity gas Impression: Other Electronically Signed by: Electronically signed by Kieran Lopez MD Last Vital Signs Date Time Temp Pulse Resp B/P (MAP) Pulse Ox O2 Delivery O2 Flow Rate FiO2 10/07/17 21:23 93 100/57 10/07/17 20:00 98.1 20 97 98.1 10/07/17 19:40 Room Air Status: improved Disposition: ADMITTED INPATIENT Condition: Serious Referrals: NOT APPLICABLE THIS PATIENT,RE (PCP) Kieran Lopez M.D. Oct 07, 2017 06:58
[2017-10-07] MEDS ORDERED: Morphine Sulfate 4mg/ml Inj IVP ONE (07:00)
[2017-10-07 07:35] LABS: HEMATOCRIT 33.6 % (42.0-52.0); HEMOGLOBIN 10.6 G/DL (14.2-18.0); MEAN CORPUSCULAR VOLUME 92 FL (80-99); PLATELET COUNT 183 K/UL (150-450); RED BLOOD COUNT 3.67 M/UL (4.70-6.10); RED CELL DISTRIBUTION WIDTH 14.7 % (11.6-14.8)
[2017-10-07 07:36] LABS: WHITE BLOOD COUNT 1.4 K/UL (4.8-10.8)
[2017-10-07] MEDS: Sodium Chloride 500ML 550 ML IV SCH ×2 (07:37→09:53)
[2017-10-07 07:56] LABS: ALANINE AMINOTRANSFERASE 41 U/L (12-78); ALBUMIN/GLOBULIN RATIO 0.6 (1.0-2.7); ALKALINE PHOSPHATASE 52 U/L (46-116); ANION GAP 10 mmol/L (5-15); ASPARTATE AMINO TRANSFERASE 33 U/L (15-37); BLOOD UREA NITROGEN 36 mg/dL (7-18); CALCIUM 8.4 MG/DL (8.5-10.1); CARBON DIOXIDE 23 MMOL/L (21-32); CHLORIDE 104 MMOL/L (98-107); CREATINE KINASE 171 U/L (26-308); CREATININE 2.5 MG/DL (0.55-1.30); POTASSIUM 5.9 MMOL/L (3.5-5.1); SODIUM 138 MMOL/L (136-145)
[2017-10-07] MEDS ORDERED: Sodium Polystyrene Sulfonate 15gm Powder ORAL ONE (09:00)
[2017-10-07] MEDS ORDERED: Sodium Bicarbonate 50ml Carp IV ONE (09:00)
[2017-10-07] MEDS ORDERED: Calcium Gluconate 1gm/10ml vial IVP ONE (09:00)
[2017-10-07 09:48] LABS: APPEARANCE,URINE SLIGHTLY CLOUDY; BILIRUBIN, URINE NEGATIVE (NEGATIVE); COLOR,URINE PALE YELLOW; GLUCOSE, URINE (UA) NEGATIVE (NEGATIVE); KETONES,URINE NEGATIVE (NEGATIVE); LEUKOCYTE ESTERASE ,URINE 3+ (NEGATIVE); NITRITE,URINE NEGATIVE (NEGATIVE); PH,URINE 5 (4.5-8.0); PROTEIN,URINE 1+ (NEGATIVE); UROBILINOGEN,URINE NORMAL MG/DL (0.0-1.0)
[2017-10-07] MEDS ORDERED: cefTRIAXone 1 GM in NS 55 ML IVPB ONE (10:30)
[2017-10-07 10:41] LABS: INR 1.2 (0.9-1.1)
--- NOTE | 2017-10-07 11:30 | Diagnostic Imaging Report ---
Indication: Abdominal pain Comparison: None Single view of the abdomen obtained Findings: Study is nondiagnostic due to absence of bowel gas. There is a hazy groundglass opacity projected over the abdomen which may be due to soft tissue attenuation or ascites. Correlate clinically. IMPRESSION: Relatively nondiagnostic study
--- NOTE | 2017-10-07 11:32 | Diagnostic Imaging Report ---
Indication: Dyspnea Comparison: 08/30/2017 A single view chest radiograph was obtained. Findings: Cardiac silhouette is enlarged. This is further accentuated by lordotic projection angle. The lungs are hypoinflated but clear. Bones are unremarkable. IMPRESSION: No acute disease. Cardiomegaly
[2017-10-07] MEDS ORDERED: Lidocaine 1% Plain 30 ml INJ ONE (12:00)
[2017-10-07] MEDS ORDERED: UNOBMED (14:05)
[2017-10-07] MEDS ORDERED: Albuterol/Ipratropium 3ml neb HHN PRN (15:15)
[2017-10-07] MEDS ORDERED: HYDROmorphone 1mg/ml Carpuject IVP PRN (15:15)
[2017-10-07] MEDS ORDERED: LORazepam Inj 2mg/ml 1ml IV PRN (15:15)
--- NOTE | 2017-10-07 15:25 | History and Physical ---
History of Present Illness General Date patient seen: Oct 07, 2017 Time patient seen: 15:22 Reason for Hospitalization: Abdominal Pain Present Illness HPI Patient is a 81 y/o male with a PMH of alcohol-related cirrhosis, CKD, and A. fibb who [place] [facility] and abdominal pain for several days. Patient is a poor historian but does report that he has been having SOB and bilateral lower extremity edema with worsening abdominal distention for several days now. He states his last alcoholic drink was several days ago. He states he has been taking his medications. He reports that he is unsure if his bowels have been dark. In the ED, patient was noted to be SOB and intubation was offered but patient refused at the time. However, he states that he wants to be full code after discussion of goals status. Patient was also noted to have elevated K of 5.9 and Cr of 2.5. Patient was also noted to be in A. fibb with RVR. Patient was given calcium. WBC was also 1.7. Patient was also noted to have 3+ leuks in UA and was given IV ceftriaxone. Patient was stabilized and admitted to [facility]. Patient currently continues to report abdominal pain and sob with right-sided chest pain upon deep breathing. Patient is being prepped to go down for an abdominal ultrasound. Of note, patient was recently admitted to [facility] for similar symptoms. Patient's ECHO was noted to have an EF of 15-20% and patient also underwent an paracentesis with 5L out. Patient was noted to have Hgb of 8 at that time and Cr of 2.0. Patient's stool OB was negative. Patient was in stable condition prior to discharge back home. Allergies: Coded Allergies: No Known Allergies (Unverified , 08/30/17) Medication History Scheduled Carvedilol* (Carvedilol*), 25 MG ORAL EVERY 12 HOURS, (Reported) Furosemide* (Lasix*), 80 MG ORAL DAILY, (Reported) Hydralazine Hcl* (Hydralazine Hcl*), 50 MG ORAL EVERY 8 HOURS, (Reported) Lisinopril (Lisinopril*), 5 MG ORAL DAILY, (Reported) Rivaroxaban (Xarelto*), 15 MG ORAL HS, (Reported) Miscellaneous Medications Unable to Obtain Medications (Unable To Obtain Meds), (Reported) Patient History Healthcare decision maker Resuscitation status Advanced Directive on File Review of Systems All Other Systems: negative except mentioned in HPI Physical Exam General Appearance: lethargic, confused, moderate distress HEENT: normocephalic, atraumatic Neck: non-tender, normal alignment, supple Respiratory/Chest: chest wall non-tender, lungs clear, normal breath sounds Cardiovascular/Chest: normal peripheral pulses, normal rate, regularly irregular Abdomen: normal bowel sounds, soft, distended Extremities: normal range of motion, non-tender, severe edema Skin Exam: normal pigmentation, warm/dry Neurologic: cloth shader II-XII grossly normal, no motor/sensory deficits, alert Last 24 Hour Vital Signs Date Time Temp Pulse Resp B/P (MAP) Pulse Ox O2 Delivery O2 Flow Rate FiO2 10/07/17 14:06 99.9 98 20 107/55 98 Room Air 99.9 10/07/17 13:12 99.2 10/07/17 12:30 106 19 110/57 100 Room Air 10/07/17 10:30 125 19 101/73 100 Room Air 10/07/17 08:30 108 19 99/55 100 Room Air 10/07/17 07:13 99.2 10/07/17 06:31 99.2 89 19 116/68 100 Room Air 99.2 10/07/17 06:12 100 16 122/86 99 Room Air Laboratory Tests Test 10/07/17 07:22 10/07/17 07:55 10/07/17 09:35 10/07/17 10:25 White Blood Count 1.4 K/UL (4.8-10.8) *L Red Blood Count 3.67 M/UL (4.70-6.10) L Hemoglobin 10.6 G/DL (14.2-18.0) L Hematocrit 33.6 % (42.0-52.0) L Mean Corpuscular Volume 92 FL (80-99) Mean Corpuscular Hemoglobin 28.8 PG (27.0-31.0) Mean Corpuscular Hemoglobin Concent 31.5 G/DL (32.0-36.0) L Red Cell Distribution Width 14.7 % (11.6-14.8) Platelet Count 183 K/UL (150-450) Mean Platelet Volume 6.7 FL (6.5-10.1) Neutrophils (%) (Auto) % (45.0-75.0) Lymphocytes (%) (Auto) % (20.0-45.0) Monocytes (%) (Auto) % (1.0-10.0) Eosinophils (%) (Auto) % (0.0-3.0) Basophils (%) (Auto) % (0.0-2.0) Differential Total Cells Counted 100 Neutrophils % (Manual) 69 % (45-75) Lymphocytes % (Manual) 15 % (20-45) L Monocytes % (Manual) 10 % (1-10) Eosinophils % (Manual) 3 % (0-3) Basophils % (Manual) 0 % (0-2) Band Neutrophils 3 % (0-8) Platelet Estimate Adequate Platelet Morphology Normal Hypochromasia 1+ Anisocytosis 1+ Acanthocytes 1+ Sodium Level 138 MMOL/L (136-145) Potassium Level 5.9 MMOL/L (3.5-5.1) H Chloride Level 104 MMOL/L (98-107) Carbon Dioxide Level 23 MMOL/L (21-32) Anion Gap 10 mmol/L (5-15) Blood Urea Nitrogen 36 mg/dL (7-18) H Creatinine 2.5 MG/DL (0.55-1.30) H Estimat Glomerular Filtration Rate mL/min (>60) Glucose Level 89 MG/DL (74-106) Calcium Level 8.4 MG/DL (8.5-10.1) L Total Bilirubin 1.0 MG/DL (0.2-1.0) Aspartate Amino Transf (AST/SGOT) 33 U/L (15-37) Alanine Aminotransferase (ALT/SGPT) 41 U/L (12-78) Alkaline Phosphatase 52 U/L (46-116) Total Creatine Kinase 171 U/L (26-308) Troponin I 0.017 ng/mL (0.000-0.056) Total Protein 8.0 G/DL (6.4-8.2) Albumin 3.0 G/DL (3.4-5.0) L Globulin 5.0 g/dL Albumin/Globulin Ratio 0.6 (1.0-2.7) L Lipase 118 U/L (73-393) Ammonia 19 umol/L (11-32) Urine Color Pale yellow Urine Appearance Slightly cloudy Urine pH 5 (4.5-8.0) Urine Specific [place] 1.010 (1.005-1.035) Urine Protein 1+ (NEGATIVE) H Urine Glucose (UA) Negative (NEGATIVE) Urine Ketones Negative (NEGATIVE) Urine Occult Blood 3+ (NEGATIVE) H Urine Nitrite Negative (NEGATIVE) Urine Bilirubin Negative (NEGATIVE) Urine Urobilinogen Normal MG/DL (0.0-1.0) Urine Leukocyte Esterase 3+ (NEGATIVE) H Urine RBC 5-10 /HPF (0 - 0) H Urine WBC 5-10 /HPF (0 - 0) H Urine Squamous Epithelial Cells Occasional /LPF Urine Bacteria Occasional /HPF (NONE) Prothrombin Time 13.0 SEC (9.30-11.50) H Prothromb Time International Ratio 1.2 (0.9-1.1) H Activated Partial Thromboplast Time 29 SEC (23-33) Height (Feet): 5 Height (Inches): 6.00 Weight (Pounds): 180 Medications Current Medications Medications (Trade) Dose Ordered Sig/Saul Route PRN Reason Start Time Stop Time Status Last Admin Dose Admin Albumin Human 100 ml @ 100 mls/hr ONCE IV 10/07/17 15:00 10/07/17 16:00 Albuterol/ Ipratropium (Albuterol/ Ipratropium) 3 ml Q4HR PRN HHN Shortness of Breath 10/07/17 15:15 10/12/17 15:14 UNV Dextrose (Dextrose 50%) 25 ml STAT PRN IV Hypoglycemia 10/07/17 15:15 11/06/17 15:14 UNV Dextrose (Dextrose 50%) 50 ml STAT PRN IV Hypoglycemia 10/07/17 15:15 11/06/17 15:14 UNV Hydromorphone HCl (Dilaudid) 0.5 mg Q3HRT PRN IVP For Pain 10/07/17 15:15 10/14/17 15:14 UNV Lorazepam (Ativan 2mg/ml 1ml) 0.5 mg Q4H PRN IV For Anxiety 10/07/17 15:15 10/14/17 15:14 UNV Morphine Sulfate (Morphine Sulfate) 1 mg Q3HR PRN IVP For Pain 10/07/17 15:15 10/14/17 15:14 UNV Ondansetron HCl (Zofran) 4 mg Q6H PRN IVP Nausea & Vomiting 10/07/17 15:15 11/06/17 15:14 UNV Sodium Chloride 550 ml @ 200 mls/hr Q2H45M IV 10/07/17 06:45 11/06/17 06:44 10/07/17 09:53 Assessment/Plan Problem List: (1) Acute exacerbation of CHF (congestive heart failure) ICD Codes: I50.9 - Heart failure, unspecified SNOMED: 21384901 (2) Atrial fibrillation with RVR ICD Codes: I48.91 - Unspecified atrial fibrillation SNOMED: 360019399803836 (3) Leukopenia ICD Codes: D72.819 - Decreased white blood cell count, unspecified SNOMED: 08291677, 891471184 (4) UTI (urinary tract infection) ICD Codes: N39.0 - Urinary tract infection, site not specified SNOMED: 87750365 Qualifiers: Qualified Codes: N39.0 - Urinary tract infection, site not specified (5) Anemia ICD Codes: D64.9 - Anemia, unspecified SNOMED: 030421283 (6) Ascites ICD Codes: R18.8 - Other ascites SNOMED: 431231251 Qualifiers: Qualified Codes: K70.31 - Alcoholic cirrhosis of liver with ascites (7) Renal failure ICD Codes: N19 - Unspecified kidney failure SNOMED: 54348838 Qualifiers: Qualified Codes: N17.9 - Acute kidney failure, unspecified; N18.3 - Chronic kidney disease, stage 3 (moderate) (8) Hyperkalemia ICD Codes: E87.5 - Hyperkalemia SNOMED: 25493193 Status: progressing, not improved Assessment/Plan - Admit to tele - Cardiology consulted for A. fibb with RVR/acute CHF exacerbation - Heme/Onc consulted for leukopenia - Nephrology consulted for hyperkalemia/RAMONE - GI consulted for abdominal ascites/possible cirrhosis - paracentesis with albumin 25% for hypotension - f/u albumin, culture and gram stain, cytology - check serial trops/EKG - check BNP - check ECHO. Last ECHO showing 15-20% EF - f/u abdominal ultrasound - f/u hepatitis panel, HIV - f/u anemia workup, stool OB - monitor H/H - thiamine, folate, multivitamin - venous duplex BLE - replete lytes prn. Monitor BMP and Mg - hold xarelto for possible EgD - hold lisinopril for RAMONE - resume home meds including coreg and lasix DVT Prophylaxis: SCD, HSQ Code Status: Full Hospital Classification Declaration: Based on this initial evaluation, and depending on the patient's clinical course, I anticipate that this patient will require hospitalization for 3-5 days for Acute CHF exacerbation and ascites and close respiratory/hemodynamic monitoring. Disposition: Once the patient is stable to leave the hospital, I anticipate the patient will likely be discharged to the following environment: home with HH vs SNF I spent [] minutes on this patient's case, and [] minutes were dedicated to counseling and/or care coordination. Discussed with patient/family, nursing staff, SW/CM, all consultants as noted above regarding clinical status, treatment course, and disposition planning. Time of note may not reflect time of encounter. Valerie Lester NP Oct 07, 2017 15:25
--- NOTE | 2017-10-07 15:54 | GI Initial Consult Note ---
History of Present Illness General Date patient seen: Oct 07, 2017 Time patient seen: 15:29 Reason for Hospitalization: Abdominal Pain Referring physician: KAROLINA FINE Reason for Consultation: CIRRHOSIS Present Illness HPI Patient presents with abdominal pain. Patient has a history of cirrhosis and ascites. He last had 5 L taken off of his abdomen 2-1/2 weeks ago. His abdomen is distended and painful diffusely. He is urinating and moving his bowels. She states his bowels have been dark. He denies any vomiting. He somewhat short of breath. He has a nonproductive cough that has clear phlegm. He rates the pain at 10/10 diffuse constant nonradiating. GI consulted for cirrhosis. ROS limited, pt is a poor historian. All information obtained from medical record. Patient was admitted approximately a month ago s/p paracentesis with over 5L ascites removed. Has of right sided heart failure, chronic kidney disease, and cirrhosis. Anemia work up showed iron deficiency and negative OB stool. Note patient is on Xarelto. Presents today with severe abdominal distention 2/2 to ascites. All labs reviewed. Unknown history of endoscopy / colonoscopy. Home Meds Reported Medications Unable to Obtain Medications (UNABLE TO OBTAIN MEDS) 1 Ea Ea 10/07/17 Furosemide* (LASIX*) 80 Mg Tablet, 80 MG ORAL DAILY, TAB 08/30/17 Lisinopril (LISINOPRIL*) 5 Mg Tablet, 5 MG ORAL DAILY, TAB 08/30/17 Hydralazine Hcl* (HYDRALAZINE HCL*) 50 Mg Tablet, 50 MG ORAL EVERY 8 HOURS, TAB 08/30/17 Carvedilol* (CARVEDILOL*) 25 Mg Tablet, 25 MG ORAL EVERY 12 HOURS, TAB 08/30/17 Rivaroxaban (XARELTO*) 10 Mg Tablet, 15 MG ORAL HS, #30 TAB 0 Refills 08/30/17 Med list reviewed/reconciled: Yes Allergies: Coded Allergies: No Known Allergies (Unverified , 08/30/17) Patient History Limited by: medical condition History Provided By: Medical Record PMH Narrative Past Medical History: see triage record Social History Narrative lives with his sister Reviewed Nursing Documentation: PMH: Agreed; PSxH: Agreed Nursing Documentation-PMH Past Medical History: No History, Except For Hx Cardiac Problems: Yes - CHF, Afib, HTN Hx Hypertension: Yes Hx Cancer: No Hx Gastrointestinal Problems: Yes - Ascites Hx Neurological Problems: No Social History: Reports: alcohol use Review of Systems All Other Systems: negative except mentioned in HPI Physical Exam Vital Signs Date Time Temp Pulse Resp B/P (MAP) Pulse Ox O2 Delivery O2 Flow Rate FiO2 10/07/17 06:12 100 16 122/86 99 Room Air 10/07/17 06:31 99.2 99.2 Sp02 EP Interpretation: reviewed, normal Labs Laboratory Tests Test 10/07/17 07:22 10/07/17 07:55 10/07/17 09:35 10/07/17 10:25 White Blood Count 1.4 K/UL (4.8-10.8) *L Red Blood Count 3.67 M/UL (4.70-6.10) L Hemoglobin 10.6 G/DL (14.2-18.0) L Hematocrit 33.6 % (42.0-52.0) L Mean Corpuscular Volume 92 FL (80-99) Mean Corpuscular Hemoglobin 28.8 PG (27.0-31.0) Mean Corpuscular Hemoglobin Concent 31.5 G/DL (32.0-36.0) L Red Cell Distribution Width 14.7 % (11.6-14.8) Platelet Count 183 K/UL (150-450) Mean Platelet Volume 6.7 FL (6.5-10.1) Neutrophils (%) (Auto) % (45.0-75.0) Lymphocytes (%) (Auto) % (20.0-45.0) Monocytes (%) (Auto) % (1.0-10.0) Eosinophils (%) (Auto) % (0.0-3.0) Basophils (%) (Auto) % (0.0-2.0) Differential Total Cells Counted 100 Neutrophils % (Manual) 69 % (45-75) Lymphocytes % (Manual) 15 % (20-45) L Monocytes % (Manual) 10 % (1-10) Eosinophils % (Manual) 3 % (0-3) Basophils % (Manual) 0 % (0-2) Band Neutrophils 3 % (0-8) Platelet Estimate Adequate Platelet Morphology Normal Hypochromasia 1+ Anisocytosis 1+ Acanthocytes 1+ Sodium Level 138 MMOL/L (136-145) Potassium Level 5.9 MMOL/L (3.5-5.1) H Chloride Level 104 MMOL/L (98-107) Carbon Dioxide Level 23 MMOL/L (21-32) Anion Gap 10 mmol/L (5-15) Blood Urea Nitrogen 36 mg/dL (7-18) H Creatinine 2.5 MG/DL (0.55-1.30) H Estimat Glomerular Filtration Rate mL/min (>60) Glucose Level 89 MG/DL (74-106) Calcium Level 8.4 MG/DL (8.5-10.1) L Total Bilirubin 1.0 MG/DL (0.2-1.0) Aspartate Amino Transf (AST/SGOT) 33 U/L (15-37) Alanine Aminotransferase (ALT/SGPT) 41 U/L (12-78) Alkaline Phosphatase 52 U/L (46-116) Total Creatine Kinase 171 U/L (26-308) Troponin I 0.017 ng/mL (0.000-0.056) Total Protein 8.0 G/DL (6.4-8.2) Albumin 3.0 G/DL (3.4-5.0) L Globulin 5.0 g/dL Albumin/Globulin Ratio 0.6 (1.0-2.7) L Lipase 118 U/L (73-393) Ammonia 19 umol/L (11-32) Urine Color Pale yellow Urine Appearance Slightly cloudy Urine pH 5 (4.5-8.0) Urine Specific [place] 1.010 (1.005-1.035) Urine Protein 1+ (NEGATIVE) H Urine Glucose (UA) Negative (NEGATIVE) Urine Ketones Negative (NEGATIVE) Urine Occult Blood 3+ (NEGATIVE) H Urine Nitrite Negative (NEGATIVE) Urine Bilirubin Negative (NEGATIVE) Urine Urobilinogen Normal MG/DL (0.0-1.0) Urine Leukocyte Esterase 3+ (NEGATIVE) H Urine RBC 5-10 /HPF (0 - 0) H Urine WBC 5-10 /HPF (0 - 0) H Urine Squamous Epithelial Cells Occasional /LPF Urine Bacteria Occasional /HPF (NONE) Prothrombin Time 13.0 SEC (9.30-11.50) H Prothromb Time International Ratio 1.2 (0.9-1.1) H Activated Partial Thromboplast Time 29 SEC (23-33) General Appearance: well appearing, no apparent distress, alert Head: normocephalic EENT: PERRL/EOMI, normal ENT inspection Neck: supple Respiratory: normal breath sounds, no respiratory distress Cardiovascular: normal rate Gastrointestinal: normal inspection, non tender, soft, normal bowel sounds, distended, ascites Rectal: deferred Genitourinary: deferred Musculoskeletal: normal inspection, back normal Neurologic: normal inspection, alert, oriented x3, responsive Psychiatric: normal inspection, judgement/insight normal, memory normal Skin: normal inspection, normal color, no rash, warm/dry, palpation normal, well hydrated Lymphatic: normal inspection, no adenopathy Current Medications Current Medications Medications (Trade) Dose Ordered Sig/Saul Route PRN Reason Start Time Stop Time Status Last Admin Dose Admin Albumin Human 100 ml @ 100 mls/hr ONCE IV 10/07/17 15:00 10/07/17 16:00 Albuterol/ Ipratropium (Albuterol/ Ipratropium) 3 ml Q4H PRN HHN Shortness of Breath 10/07/17 15:15 10/12/17 15:14 Dextrose (Dextrose 50%) 25 ml STAT PRN IV Hypoglycemia 10/07/17 15:15 11/06/17 15:14 Dextrose (Dextrose 50%) 50 ml STAT PRN IV Hypoglycemia 10/07/17 15:15 11/06/17 15:14 Hydromorphone HCl (Dilaudid) 0.5 mg Q3H PRN IVP Breakthrough Pain 10/07/17 15:15 10/14/17 15:14 Lorazepam (Ativan 2mg/ml 1ml) 0.5 mg Q4H PRN IV For Anxiety 10/07/17 15:15 10/14/17 15:14 Morphine Sulfate (Morphine Sulfate) 1 mg Q3H PRN IVP Severe Pain (Pain Scale 7-10) 10/07/17 15:15 10/14/17 15:14 Ondansetron HCl (Zofran) 4 mg Q6H PRN IVP Nausea & Vomiting 10/07/17 15:15 11/06/17 15:14 Sodium Chloride 550 ml @ 200 mls/hr Q2H45M IV 10/07/17 06:45 11/06/17 06:44 10/07/17 09:53 GI: Plan Problems: (1) Cirrhosis (2) Anemia (3) Iron deficiency (4) Ascites Plan will consider GI procedures pending work up pending paracentesis, r/o SBP albumin x 1 fu abdominal US anemia work up OB stool r/o GI bleed monitor H&H, prn transfusions bowel regime venofer ppi fu labs Discussed with Dr. Choudhary. Thank you for this patient referral, we will follow. Chepe Wolf NP Oct 07, 2017 15:54
--- NOTE | 2017-10-07 16:28 | Diagnostic Imaging Report ---
Indications: Ascites Procedure: Informed consent obtained. Ultrasound used to localize optimal puncture site. Sterile prepping and draping over the optimum site. Local anesthesia with 1% lidocaine. Under real-time ultrasound guidance, puncture of the peritoneal space performed using paracentesis needle. Digital image was saved and archived. Stylet removed. Catheter placed to vacuum bottle suction. Fluid was aspirated. Patient tolerated procedure well, without immediate complication. Some fluid was sent as a diagnostic exam for analysis. Findings: Followup sonography demonstrates complete resolution of peritoneal fluid Impression: Successful ultrasound-guided paracentesis, yielding 13.6 liters of fluid
[2017-10-07] MEDS: Morphine Sulfate 2mg/ml Inj IVP PRN ×2 (17:46→21:52)
--- NOTE | 2017-10-07 17:46 | Consultation ---
History of Present Illness General Date patient seen: Oct 07, 2017 Chief Complaint: Abdominal Pain Referring physician: KAROLINA FINE Reason for Consultation: CIRRHOSIS Present Illness HPI Pt brought in by RA 68 from home for Abd pain 01/05. Abdomen is rigid and distended. Pt's stomach was drained 2.5 weeks ago. He last had 5 L taken off of his abdomen 2-1/2 weeks ago. He has alcoholic induced cirrhosis, CKD, hepatorenal, AFIB, CHF. He has SOB and LE edema and abdominal distension. He drinks alcohol regularly. He is supposedly taking his meds but he is a poor historian. He was noted to be in AFIB RVR with abnormal electrolytes. He was given calcium. Patient's ECHO was noted to have an EF of 15-20% . CXR shows cardiomegaly. He had successful ultrasound-guided paracentesis, yielding 13.6 liters of fluid Allergies: Coded Allergies: No Known Allergies (Unverified , 08/30/17) Medication History Scheduled Carvedilol* (Carvedilol*), 25 MG ORAL EVERY 12 HOURS, (Reported) Furosemide* (Lasix*), 80 MG ORAL DAILY, (Reported) Hydralazine Hcl* (Hydralazine Hcl*), 50 MG ORAL EVERY 8 HOURS, (Reported) Lisinopril (Lisinopril*), 5 MG ORAL DAILY, (Reported) Rivaroxaban (Xarelto*), 15 MG ORAL HS, (Reported) Miscellaneous Medications Unable to Obtain Medications (Unable To Obtain Meds), (Reported) Patient History Healthcare decision maker Resuscitation status Advanced Directive on File Review of Systems Constitutional: Reports: no symptoms Eye: Reports: no symptoms Respiratory: Reports: no symptoms Gastrointestinal: Reports: abdominal pain, nausea, vomiting Genitourinary: Reports: no symptoms Musculoskeletal: Reports: no symptoms Skin: Reports: no symptoms Psychiatric: Reports: no symptoms Neurological: Reports: no symptoms Endocrine: Reports: no symptoms Hematologic/Lymphatic: Reports: no symptoms Physical Exam General Appearance: no apparent distress Lines, tubes and drains: peripheral HEENT: normocephalic Neck: non-tender Respiratory/Chest: chest wall non-tender Cardiovascular/Chest: normal peripheral pulses, arrhythmia, irregularly irregular Abdomen: normal bowel sounds, distended, guarding, rebound Extremities: normal range of motion Skin Exam: normal pigmentation Neurologic: surgery manager II-XII grossly normal Last 24 Hour Vital Signs Date Time Temp Pulse Resp B/P (MAP) Pulse Ox O2 Delivery O2 Flow Rate FiO2 10/07/17 14:06 99.9 98 20 107/55 98 Room Air 99.9 10/07/17 13:12 99.2 10/07/17 12:30 106 19 110/57 100 Room Air 10/07/17 10:30 125 19 101/73 100 Room Air 10/07/17 08:30 108 19 99/55 100 Room Air 10/07/17 07:13 99.2 10/07/17 06:31 99.2 89 19 116/68 100 Room Air 99.2 10/07/17 06:12 100 16 122/86 99 Room Air Laboratory Tests Test 10/07/17 07:22 10/07/17 07:55 10/07/17 09:35 10/07/17 10:25 White Blood Count 1.4 K/UL (4.8-10.8) *L Red Blood Count 3.67 M/UL (4.70-6.10) L Hemoglobin 10.6 G/DL (14.2-18.0) L Hematocrit 33.6 % (42.0-52.0) L Mean Corpuscular Volume 92 FL (80-99) Mean Corpuscular Hemoglobin 28.8 PG (27.0-31.0) Mean Corpuscular Hemoglobin Concent 31.5 G/DL (32.0-36.0) L Red Cell Distribution Width 14.7 % (11.6-14.8) Platelet Count 183 K/UL (150-450) Mean Platelet Volume 6.7 FL (6.5-10.1) Neutrophils (%) (Auto) % (45.0-75.0) Lymphocytes (%) (Auto) % (20.0-45.0) Monocytes (%) (Auto) % (1.0-10.0) Eosinophils (%) (Auto) % (0.0-3.0) Basophils (%) (Auto) % (0.0-2.0) Differential Total Cells Counted 100 Neutrophils % (Manual) 69 % (45-75) Lymphocytes % (Manual) 15 % (20-45) L Monocytes % (Manual) 10 % (1-10) Eosinophils % (Manual) 3 % (0-3) Basophils % (Manual) 0 % (0-2) Band Neutrophils 3 % (0-8) Platelet Estimate Adequate Platelet Morphology Normal Hypochromasia 1+ Anisocytosis 1+ Acanthocytes 1+ Sodium Level 138 MMOL/L (136-145) Potassium Level 5.9 MMOL/L (3.5-5.1) H Chloride Level 104 MMOL/L (98-107) Carbon Dioxide Level 23 MMOL/L (21-32) Anion Gap 10 mmol/L (5-15) Blood Urea Nitrogen 36 mg/dL (7-18) H Creatinine 2.5 MG/DL (0.55-1.30) H Estimat Glomerular Filtration Rate mL/min (>60) Glucose Level 89 MG/DL (74-106) Calcium Level 8.4 MG/DL (8.5-10.1) L Total Bilirubin 1.0 MG/DL (0.2-1.0) Aspartate Amino Transf (AST/SGOT) 33 U/L (15-37) Alanine Aminotransferase (ALT/SGPT) 41 U/L (12-78) Alkaline Phosphatase 52 U/L (46-116) Total Creatine Kinase 171 U/L (26-308) Troponin I 0.017 ng/mL (0.000-0.056) Total Protein 8.0 G/DL (6.4-8.2) Albumin 3.0 G/DL (3.4-5.0) L Globulin 5.0 g/dL Albumin/Globulin Ratio 0.6 (1.0-2.7) L Lipase 118 U/L (73-393) Ammonia 19 umol/L (11-32) Urine Color Pale yellow Urine Appearance Slightly cloudy Urine pH 5 (4.5-8.0) Urine Specific [place] 1.010 (1.005-1.035) Urine Protein 1+ (NEGATIVE) H Urine Glucose (UA) Negative (NEGATIVE) Urine Ketones Negative (NEGATIVE) Urine Occult Blood 3+ (NEGATIVE) H Urine Nitrite Negative (NEGATIVE) Urine Bilirubin Negative (NEGATIVE) Urine Urobilinogen Normal MG/DL (0.0-1.0) Urine Leukocyte Esterase 3+ (NEGATIVE) H Urine RBC 5-10 /HPF (0 - 0) H Urine WBC 5-10 /HPF (0 - 0) H Urine Squamous Epithelial Cells Occasional /LPF Urine Bacteria Occasional /HPF (NONE) Prothrombin Time 13.0 SEC (9.30-11.50) H Prothromb Time International Ratio 1.2 (0.9-1.1) H Activated Partial Thromboplast Time 29 SEC (23-33) Height (Feet): 5 Height (Inches): 6.00 Weight (Pounds): 180 Medications Current Medications Medications (Trade) Dose Ordered Sig/Saul Route PRN Reason Start Time Stop Time Status Last Admin Dose Admin Albuterol/ Ipratropium (Albuterol/ Ipratropium) 3 ml Q4H PRN HHN Shortness of Breath 10/07/17 15:15 10/12/17 15:14 Ceftriaxone Sodium 1 gm/ Dextrose 110 ml @ 220 mls/hr DAILY IVPB 10/08/17 09:00 10/15/17 08:59 Dextrose (Dextrose 50%) 25 ml STAT PRN IV Hypoglycemia 10/07/17 15:15 11/06/17 15:14 Dextrose (Dextrose 50%) 50 ml STAT PRN IV Hypoglycemia 10/07/17 15:15 11/06/17 15:14 Hydromorphone HCl (Dilaudid) 0.5 mg Q3H PRN IVP Breakthrough Pain 10/07/17 15:15 10/14/17 15:14 Lorazepam (Ativan 2mg/ml 1ml) 0.5 mg Q4H PRN IV For Anxiety 10/07/17 15:15 10/14/17 15:14 Morphine Sulfate (Morphine Sulfate) 1 mg Q3H PRN IVP Severe Pain (Pain Scale 7-10) 10/07/17 15:15 10/14/17 15:14 Ondansetron HCl (Zofran) 4 mg Q6H PRN IVP Nausea & Vomiting 10/07/17 15:15 11/06/17 15:14 Assessment/Plan Status: stable Assessment/Plan Assessment/Plan Problem List: (1) Acute systolic exacerbation of CHF (congestive heart failure) (2) Atrial fibrillation with RVR (3) Leukopenia (4) UTI (urinary tract infection) (5) Anemia (6) Ascites (7) Renal failure (8) Hyperkalemia s/p paracentesis with 1.3 liter fluid removed 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 Oct 07, 2017 17:46
[2017-10-07] MEDS: Carvedilol 25mg Tab ORAL SCH (21:23)
[2017-10-07] MEDS ORDERED: Dyna-Hex 2% Top Sol 2oz TOPIC SCH (21:45)
[2017-10-07] MEDS: HydrALAZINE 50mg tab ORAL SCH (22:00)
--- NOTE | 2017-10-07 23:02 | Consultation ---
DATE OF CONSULTATION: 10/07/2017 CONSULTING PHYSICIAN: Mehdi Lewis M.D. REFERRING PHYSICIAN: 1. Orlin Cabrera M.D. REASON FOR CONSULTATION: 1. Acute kidney injury. 2. Hyperkalemia. HISTORY OF PRESENT ILLNESS: The patient is a pleasant 81-year-old gentleman, who is admitted for further evaluation and care of worsening lower extremity edema, shortness of breath, and abdominal distention. The patient had a recent admission in August for the same reasons. At that time, he was placed on diuretics for diuresis due to severe left ventricular dysfunction with an ejection fraction of 15% and severe global left ventricular hypokinesis in addition to aortic regurgitation with severe mitral regurgitation along with severe pulmonary hypertension. The patient again returned, at this time, with creatinine 2.5 and potassium of 5.9 with abdominal fullness and pain. The patient has just completed a paracentesis. Also noted to be quite leukopenic with a white count of 1.4. Both Cardiology and Hematology have been consulted. PAST MEDICAL HISTORY: 1. Alcohol dependency. 2. Biventricular failure. 3. Severe pulmonary hypertension. 4. Ascites. PAST SURGICAL HISTORY: Noncontributory. CURRENT MEDICATIONS: Reviewed on medicine reconciliation list. ALLERGIES: No known drug allergies. FAMILY HISTORY: Positive for hypertension. PHYSICAL EXAMINATION: VITAL SIGNS: Blood pressure 99/55, heart rate 108, temperature 99.2, and 100% on room air. GENERAL: The patient is awake, alert, and coherent to two spheres, not otherwise in distress. HEENT: Extraocular muscles intact. No lymphadenopathy noted. Oropharyngeal mucosa is clear and dry. CARDIOVASCULAR: S1 and S2. No rubs or gallops. PULMONARY: Clear to auscultation bilaterally. No rales, rhonchi or wheezes. ABDOMEN: Mildly distended with positive fluid wave shift. EXTREMITIES: A 2+ pitting edema. LABORATORY DATA: Labs dated 10/07/2017, white cell count 1.4, hemoglobin 10.6, and platelet count 183,000. Sodium 138, potassium 5.9, BUN 36, creatinine 2.5, and calcium 8.4. AST and ALT of 33 and 41 with alkaline phosphatase of 52. CPK of 171. Brain natriuretic peptide 24,785. Albumin 3.0. ASSESSMENT AND PLAN: 1. Acute on chronic kidney disease. In August of this year, creatinine was already 2.4, currently at 2.5. 2. Chronic kidney disease secondary to cardiorenal in nature with severe biventricular failure along with severe pulmonary hypertension and right-sided heart failure. At this time, we will discontinue intravenous diuretics. Hemodynamically stabilize the patient and have a discussion with Cardiology on how to proceed with severe pulmonary hypertension with biventricular failure. Poor prognosis long-term. 3. Hyperkalemia. The patient is treated medically and repeat laboratory is now currently pending. 4. Biventricular failure and severe pulmonary hypertension. We will discuss with Cardiology options moving forward. 5. Ascites. Status post paracentesis. Most likely secondary to cardiac cirrhosis. Defer management to Gastroenterology. Let me thank Dr. Tayler RUBIN for allowing me to assist in the care of this patient. Mehdi Lewis MD DR: TRACI JOB#: [id number] CC: CLEMENTINA
[2017-10-08] VITALS: BP 99/53
[2017-10-08 04:00] VITALS: BP 101/62
[2017-10-08] MEDS: HydrALAZINE 50mg tab ORAL SCH ×3 (06:00→22:00)
[2017-10-08] MEDS: Morphine Sulfate 2mg/ml Inj IVP PRN (06:58)
[2017-10-08 07:57] LABS: BASOPHILS % (AUTO) 0.5 % (0.0-2.0); HEMATOCRIT 29.4 % (42.0-52.0); HEMOGLOBIN 9.1 G/DL (14.2-18.0); LYMPHOCYTES % (AUTO) 9.8 % (20.0-45.0); MEAN CORPUSCULAR VOLUME 92 FL (80-99); MONOCYTES % (AUTO) 12.7 % (1.0-10.0); NEUTROPHILS % (AUTO) 77.1 % (45.0-75.0); PLATELET COUNT 216 K/UL (150-450); RED BLOOD COUNT 3.19 M/UL (4.70-6.10); RED CELL DISTRIBUTION WIDTH 15.2 % (11.6-14.8); WHITE BLOOD COUNT 4.5 K/UL (4.8-10.8)
[2017-10-08 08:00] VITALS: BP 89/54
[2017-10-08 08:11] LABS: INR 1.5 (0.9-1.1)
[2017-10-08] MEDS: cefTRIAXone 1 GM in D5W 110 ML IVPB SCH (08:24)
[2017-10-08] MEDS: Carvedilol 25mg Tab ORAL SCH ×2 (08:25→21:00)
[2017-10-08 08:36] LABS: % IRON SATURATION 3 % (15-50); IRON 6 ug/dL (50-175); TOTAL IRON BINDING CAPACITY 202 ug/dL (250-450)
[2017-10-08 08:37] LABS: ALANINE AMINOTRANSFERASE 25 U/L (12-78); ALBUMIN 2.4 G/DL (3.4-5.0); ALBUMIN/GLOBULIN RATIO 0.6 (1.0-2.7); ALKALINE PHOSPHATASE 34 U/L (46-116); ANION GAP 8 mmol/L (5-15); ASPARTATE AMINO TRANSFERASE 11 U/L (15-37); BILIRUBIN,TOTAL 0.7 MG/DL (0.2-1.0); BLOOD UREA NITROGEN 41 mg/dL (7-18); CARBON DIOXIDE 28 MMOL/L (21-32); CHLORIDE 108 MMOL/L (98-107); CHOLESTEROL < 50 MG/DL (< 200); CREATININE 2.6 MG/DL (0.55-1.30); FERRITIN 158 NG/ML (8-388); HDL CHOLESTEROL 37 MG/DL (40-60); POTASSIUM 4.4 MMOL/L (3.5-5.1); SODIUM 144 MMOL/L (136-145); TRIGLYCERIDES 35 MG/DL (30-150)
--- NOTE | 2017-10-08 10:21 | Nephrology Progress Note ---
Assessment/Plan Assessment/Plan 1. RAMONE on CKD 4- AM labs pending - Cr yesterday 2.5 - cardiorenal in nature. EF 15% - temporarily hold Lasix and IVF's, am labs pending 2. Severe Pulm HTN/Left Vent Dfx - per cardiology mgmt. Hold LIANNE-I and ARB due to hyperk+ - Temp hold IVFs and lasix 3. Hyperkalemia- treated, am labs pending 4. CHF/ Cardiac Cirrhosis- alcohol induced - temp hold off aldactone/LIANNE-I and ARB due to hyperk+ Subjective Date patient seen: Oct 08, 2017 Time patient seen: 10:12 ROS Limited/Unobtainable: No Constitutional: Reports: weakness Allergies: Coded Allergies: No Known Allergies (Unverified , 08/30/17) All Systems: reviewed and negative except above Subjective Patient feeling better. Had paracentesis yesterday Objective Last 24 Hour Vital Signs Date Time Temp Pulse Resp B/P (MAP) Pulse Ox O2 Delivery O2 Flow Rate FiO2 10/08/17 09:57 97 18 Room Air 10/08/17 08:25 121 89/54 10/08/17 06:00 101/62 10/08/17 04:00 98.0 80 20 101/62 (75) 97 98.0 10/08/17 04:00 102 10/08/17 00:00 105 10/08/17 00:00 97.7 22 22 99/53 (68) 96 97.7 83 10/07/17 22:00 94/66 10/07/17 21:23 93 100/57 10/07/17 21:00 Room Air 10/07/17 20:00 98.1 93 20 100/57 (71) 97 98.1 10/07/17 20:00 95 10/07/17 19:40 101 18 Room Air 10/07/17 18:16 99.9 10/07/17 16:00 100 10/07/17 16:00 97.4 100 20 92/55 (67) 98 97.4 10/07/17 15:00 Room Air 10/07/17 14:30 99.9 98 20 107/55 98 Room Air 99.9 10/07/17 14:06 99.9 98 20 107/55 98 Room Air 99.9 10/07/17 13:12 99.2 10/07/17 12:30 106 19 110/57 100 Room Air 10/07/17 10:30 125 19 101/73 100 Room Air Intake and Output 10/07/17 10/08/17 19:00 07:00 Intake Total 650 ml Balance 650 ml Intake Oral 0 ml IV Total 650 ml # Voids 2 Laboratory Tests 10/07/17 10:25: Prothrombin Time 13.0H, Prothromb Time International Ratio 1.2H, Activated Partial Thromboplast Time 29 10/07/17 15:09: Arterial Blood pH 7.400, Arterial Blood Partial Pressure CO2 39.1, Arterial Blood Partial Pressure O2 75.4, Arterial Blood HCO3 23.7, Arterial Blood Oxygen Saturation 93.8, Arterial Blood Base Excess -1.0, Mahesh Test Positive 10/07/17 17:40: Potassium Level 4.4, Troponin I 0.063H 10/08/17 05:30: Prothrombin Time 15.4H, Prothromb Time International Ratio 1.5H, Activated Partial Thromboplast Time 41H, Potassium Level 4.4, Troponin I [Pending], White Blood Count 4.5#L, Red Blood Count 3.19L, Hemoglobin 9.1L, Hematocrit 29.4L, Mean Corpuscular Volume 92, Mean Corpuscular Hemoglobin 28.4, Mean Corpuscular Hemoglobin Concent 30.8L, Red Cell Distribution Width 15.2H, Platelet Count 216 , Mean Platelet Volume 6.9, Neutrophils (%) (Auto) 77.1H, Lymphocytes (%) (Auto ) 9.8L, Monocytes (%) (Auto) 12.7H, Eosinophils (%) (Auto) 0.0, Basophils (%) ( Auto) 0.5, Reticulocyte Count [Pending], Sodium Level 144, Chloride Level 108H, Carbon Dioxide Level 28, Anion Gap 8, Blood Urea Nitrogen 41H, Creatinine 2.6H, Estimat Glomerular Filtration Rate , Glucose Level 69L, Hemoglobin A1c 5.7, Calcium Level 8.0L, Magnesium Level 2.1, Iron Level 6L, Total Iron Binding Capacity 202L, Percent Iron Saturation 3L, Unsaturated Iron Binding 196, Ferritin 158, Total Bilirubin 0.7, Aspartate Amino Transf (AST/SGOT) 11L, Alanine Aminotransferase (ALT/SGPT) 25, Alkaline Phosphatase 34L, Pro-B-Type Natriuretic Peptide 75350O, Total Protein 6.3L, Albumin 2.4L, Globulin 3.9, Albumin/Globulin Ratio 0.6L, Triglycerides Level 35, Cholesterol Level < 50, LDL Cholesterol 12, HDL Cholesterol 37L, Cholesterol/HDL Ratio 1.4L, Carcinoembryonic Antigen [Pending], Vitamin B12 Level 633, Folate 12.6, Thyroid Stimulating Hormone (TSH) 1.074, Hepatitis A IgM Antibody [Pending], Hepatitis B Surface Antigen [Pending], Hepatitis B Core IgM Antibody [Pending], Hepatitis C Antibody [Pending], HIV (1&2) Antibody Rapid Negative Height (Feet): 5 Height (Inches): 6.00 Weight (Pounds): 151 General Appearance: WD/WN EENT: normal ENT inspection Neck: non-tender, normal alignment Cardiovascular: normal rate, regular rhythm Respiratory/Chest: lungs clear, normal breath sounds Abdomen: non tender, soft Edema: no edema noted Arm (L), no edema noted Arm (R), no edema noted Leg (L), no edema noted Leg (R), no edema noted Pedal (L), no edema noted Pedal (R), no edema noted Generalized Mehid Lewis M.D. Oct 08, 2017 10:21
--- NOTE | 2017-10-08 10:27 | GI Progress Note ---
Assessment/Plan Problems: (1) Ascites ICD Codes: R18.8 - Other ascites SNOMED: 869151064 Qualifiers: Qualified Codes: K70.31 - Alcoholic cirrhosis of liver with ascites (2) Cirrhosis ICD Codes: K74.60 - Unspecified cirrhosis of liver SNOMED: 40867793 (3) Anemia ICD Codes: D64.9 - Anemia, unspecified SNOMED: 338809630 (4) Iron deficiency ICD Codes: E61.1 - Iron deficiency SNOMED: 48872265 Status: progressing Status Narrative Discussed with Dr. Choudhary. Assessment/Plan s/p paracentesis yielding 13.6L of fluid >> r/o SBP anemia work up reviewed >> iron deficiency will consider GI procedures pending work up fu abdominal U/S, okay to adv to low sodium diet after imaging study OB stool r/o GI bleed monitor H&H, prn transfusions bowel regime venofer ppi fu labs, hepatitis panel The patient was seen and examined at bedside and all new and available data was reviewed in the patients chart. I agree with the above findings, impression and plan. (Patient seen earlier today. Signature stamp does not reflect patient encounter time.). - Robin Choudhary MD Subjective Gastrointestinal/Abdominal: Reports: no symptoms Subjective has SOB, but feels better abdominal distention improved has no history of EGD Objective Last 24 Hour Vital Signs Date Time Temp Pulse Resp B/P (MAP) Pulse Ox O2 Delivery O2 Flow Rate FiO2 10/08/17 09:57 97 18 Room Air 10/08/17 08:25 121 89/54 10/08/17 06:00 101/62 10/08/17 04:00 98.0 80 20 101/62 (75) 97 98.0 10/08/17 04:00 102 10/08/17 00:00 105 10/08/17 00:00 97.7 22 22 99/53 (68) 96 97.7 83 10/07/17 22:00 94/66 10/07/17 21:23 93 100/57 10/07/17 21:00 Room Air 10/07/17 20:00 98.1 93 20 100/57 (71) 97 98.1 10/07/17 20:00 95 10/07/17 19:40 101 18 Room Air 10/07/17 18:16 99.9 10/07/17 16:00 100 10/07/17 16:00 97.4 100 20 92/55 (67) 98 97.4 10/07/17 15:00 Room Air 10/07/17 14:30 99.9 98 20 107/55 98 Room Air 99.9 10/07/17 14:06 99.9 98 20 107/55 98 Room Air 99.9 10/07/17 13:12 99.2 10/07/17 12:30 106 19 110/57 100 Room Air 10/07/17 10:30 125 19 101/73 100 Room Air Intake and Output 10/07/17 10/08/17 19:00 07:00 Intake Total 650 ml Balance 650 ml Intake Oral 0 ml IV Total 650 ml # Voids 2 Laboratory Tests Test 10/07/17 10:25 10/07/17 15:09 10/07/17 17:40 10/08/17 05:30 Prothrombin Time 13.0 SEC (9.30-11.50) H 15.4 SEC (9.30-11.50) H Prothromb Time International Ratio 1.2 (0.9-1.1) H 1.5 (0.9-1.1) H Activated Partial Thromboplast Time 29 SEC (23-33) 41 SEC (23-33) H Arterial Blood pH 7.400 (7.350-7.450) Arterial Blood Partial Pressure CO2 39.1 mmHg (35.0-45.0) Arterial Blood Partial Pressure O2 75.4 mmHg (75.0-100.0) Arterial Blood HCO3 23.7 mmol/L (22.0-26.0) Arterial Blood Oxygen Saturation 93.8 % (92.0-98.0) Arterial Blood Base Excess -1.0 Mahesh Test Positive Potassium Level 4.4 MMOL/L (3.5-5.1) 4.4 MMOL/L (3.5-5.1) Troponin I 0.063 ng/mL (0.000-0.056) Pending White Blood Count 4.5 K/UL (4.8-10.8) #L Red Blood Count 3.19 M/UL (4.70-6.10) L Hemoglobin 9.1 G/DL (14.2-18.0) L Hematocrit 29.4 % (42.0-52.0) L Mean Corpuscular Volume 92 FL (80-99) Mean Corpuscular Hemoglobin 28.4 PG (27.0-31.0) Mean Corpuscular Hemoglobin Concent 30.8 G/DL (32.0-36.0) L Red Cell Distribution Width 15.2 % (11.6-14.8) H Platelet Count 216 K/UL (150-450) Mean Platelet Volume 6.9 FL (6.5-10.1) Neutrophils (%) (Auto) 77.1 % (45.0-75.0) H Lymphocytes (%) (Auto) 9.8 % (20.0-45.0) L Monocytes (%) (Auto) 12.7 % (1.0-10.0) H Eosinophils (%) (Auto) 0.0 % (0.0-3.0) Basophils (%) (Auto) 0.5 % (0.0-2.0) Reticulocyte Count Pending Sodium Level 144 MMOL/L (136-145) Chloride Level 108 MMOL/L (98-107) H Carbon Dioxide Level 28 MMOL/L (21-32) Anion Gap 8 mmol/L (5-15) Blood Urea Nitrogen 41 mg/dL (7-18) H Creatinine 2.6 MG/DL (0.55-1.30) H Estimat Glomerular Filtration Rate mL/min (>60) Glucose Level 69 MG/DL (74-106) L Hemoglobin A1c 5.7 % (4.3-6.0) Calcium Level 8.0 MG/DL (8.5-10.1) L Magnesium Level 2.1 MG/DL (1.8-2.4) Iron Level 6 ug/dL (50-175) L Total Iron Binding Capacity 202 ug/dL (250-450) L Percent Iron Saturation 3 % (15-50) L Unsaturated Iron Binding 196 ug/dL (112-346) Ferritin 158 NG/ML (8-388) Total Bilirubin 0.7 MG/DL (0.2-1.0) Aspartate Amino Transf (AST/SGOT) 11 U/L (15-37) L Alanine Aminotransferase (ALT/SGPT) 25 U/L (12-78) Alkaline Phosphatase 34 U/L (46-116) L Pro-B-Type Natriuretic Peptide 89949 pg/mL (0-125) H Total Protein 6.3 G/DL (6.4-8.2) L Albumin 2.4 G/DL (3.4-5.0) L Globulin 3.9 g/dL Albumin/Globulin Ratio 0.6 (1.0-2.7) L Triglycerides Level 35 MG/DL (30-150) Cholesterol Level < 50 MG/DL (< 200) LDL Cholesterol 12 mg/dL (<100) HDL Cholesterol 37 MG/DL (40-60) L Cholesterol/HDL Ratio 1.4 (3.3-4.4) L Carcinoembryonic Antigen Pending Vitamin B12 Level 633 PG/ML (193-986) Folate 12.6 NG/ML (8.6-58.9) Thyroid Stimulating Hormone (TSH) 1.074 uiU/mL (0.358-3.740) Hepatitis A IgM Antibody Pending Hepatitis B Surface Antigen Pending Hepatitis B Core IgM Antibody Pending Hepatitis C Antibody Pending HIV (1&2) Antibody Rapid Negative (NEGATIVE) Height (Feet): 5 Height (Inches): 6.00 Weight (Pounds): 151 General Appearance: WD/WN, no apparent distress, alert, thin Cardiovascular: normal rate Respiratory/Chest: normal breath sounds, no respiratory distress Abdominal Exam: normal bowel sounds, non tender, soft Extremities: normal range of motion, non-tender Chepe Wolf NP Oct 08, 2017 10:27
[2017-10-08 12:00] VITALS: BP 93/62
[2017-10-08] MEDS ORDERED: Sodium Chloride 500ML 500 ML IV ONE (12:30)
--- NOTE | 2017-10-08 14:17 | Diagnostic Imaging Report ---
Indication: Abdominal pain Technique: US ABD Complete Comparison: None Findings: Imaged portions of the pancreatic head unremarkable. Body and tail not seen. Liver has nodular contour. No focal hepatic mass lesion is appreciated sonographically. Gallbladder wall is not thickened. Questionable sludge versus artifact within the gallbladder lumen. Common bile duct is not enlarged. No appreciable intrahepatic biliary ductal dilatation. Bilateral kidneys are small with increased echogenicity. There is a cyst in the left kidney with a possible small septation. Some possible parapelvic cysts noted on the right. The bladder wall is thickened. Some echogenic debris noted within the bladder. Bilateral ureteral jets noted. Prostate is normal in size but heterogeneous with some central calcifications. Spleen is normal in size. Abdominal aorta normal in caliber. Atherosclerotic calcifications noted. There is ascites with some septations and ascites suggesting complex ascites. IMPRESSION: * Nodular contour of the liver. Correlate for history of cirrhosis. * Gallbladder sludge versus artifact. No gallbladder wall thickening or pericholecystic fluid. * Mild somewhat complex ascites. * Left-sided cyst with a possible thin septation. Recommend follow-up ultrasound in within 6 months to assess for interval change. * Increased echogenicity of the bilateral kidneys. Correlate for medical renal disease. * Bladder wall thickening with possible debris in the bladder. Correlate with urinalysis and urine cytology.
--- NOTE | 2017-10-08 15:03 | Cardiology Progress Note ---
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 No cath indicated due to lack of symptoms and objective findings of ACS and poor renal function Continue heart failure medications: Coreg - increase dose as tolerated Hold LIANNE/ARB given renal function Could consider hydralazine/nitro if renal function doesnt recover Not a candidate for entresto Hold aspirin/anticoagulation for endoscopy IV albumin bolus for hypotension Restart lasix tomorrow if renal function improved and BP stable Subjective Cardiovascular: Reports: no symptoms Respiratory: Reports: no symptoms Gastrointestinal/Abdominal: Reports: no symptoms Genitourinary: Reports: no symptoms Subjective NO acute events, no CP/SOB, abdominal distension improved. Hypotensive today Objective Last 24 Hour Vital Signs Date Time Temp Pulse Resp B/P (MAP) Pulse Ox O2 Delivery O2 Flow Rate FiO2 10/08/17 14:00 93/62 10/08/17 12:00 98.4 106 19 93/62 (72) 93 98.4 10/08/17 09:57 97 18 Room Air 10/08/17 09:00 Room Air 10/08/17 08:25 121 89/54 10/08/17 08:00 98.6 121 20 89/54 (66) 94 98.6 10/08/17 08:00 124 10/08/17 06:00 101/62 10/08/17 04:00 98.0 80 20 101/62 (75) 97 98.0 10/08/17 04:00 102 10/08/17 00:00 105 10/08/17 00:00 97.7 22 22 99/53 (68) 96 97.7 83 10/07/17 22:00 94/66 10/07/17 21:23 93 100/57 10/07/17 21:00 Room Air 10/07/17 20:00 98.1 93 20 100/57 (71) 97 98.1 10/07/17 20:00 95 10/07/17 19:40 101 18 Room Air 10/07/17 18:16 99.9 7/12/18 16:00 100 10/07/17 16:00 97.4 100 20 92/55 (67) 98 97.4 General Appearance: no apparent distress EENT: PERRL/EOMI Neck: non-tender Rhythm: NSR Cardiovascular: normal peripheral pulses Respiratory/Chest: chest wall non-tender Abdomen: distended, guarding, tender, hepatomegaly, splenomegaly Extremities: normal range of motion Intake and Output 10/07/17 10/08/17 19:00 07:00 Intake Total 650 ml Balance 650 ml Intake Oral 0 ml IV Total 650 ml # Voids 2 Laboratory Tests Test 10/07/17 15:09 10/07/17 15:30 10/07/17 17:40 10/08/17 05:30 Arterial Blood pH 7.400 (7.350-7.450) Arterial Blood Partial Pressure CO2 39.1 mmHg (35.0-45.0) Arterial Blood Partial Pressure O2 75.4 mmHg (75.0-100.0) Arterial Blood HCO3 23.7 mmol/L (22.0-26.0) Arterial Blood Oxygen Saturation 93.8 % (92.0-98.0) Arterial Blood Base Excess -1.0 Mahesh Test Positive Body Fluid Albumin Pending Potassium Level 4.4 MMOL/L (3.5-5.1) 4.4 MMOL/L (3.5-5.1) Troponin I 0.063 ng/mL (0.000-0.056) 0.070 ng/mL (0.000-0.056) White Blood Count 4.5 K/UL (4.8-10.8) #L Red Blood Count 3.19 M/UL (4.70-6.10) L Hemoglobin 9.1 G/DL (14.2-18.0) L Hematocrit 29.4 % (42.0-52.0) L Mean Corpuscular Volume 92 FL (80-99) Mean Corpuscular Hemoglobin 28.4 PG (27.0-31.0) Mean Corpuscular Hemoglobin Concent 30.8 G/DL (32.0-36.0) L Red Cell Distribution Width 15.2 % (11.6-14.8) H Platelet Count 216 K/UL (150-450) Mean Platelet Volume 6.9 FL (6.5-10.1) Neutrophils (%) (Auto) 77.1 % (45.0-75.0) H Lymphocytes (%) (Auto) 9.8 % (20.0-45.0) L Monocytes (%) (Auto) 12.7 % (1.0-10.0) H Eosinophils (%) (Auto) 0.0 % (0.0-3.0) Basophils (%) (Auto) 0.5 % (0.0-2.0) Reticulocyte Count 0.7 % (0.0-2.0) Prothrombin Time 15.4 SEC (9.30-11.50) H Prothromb Time International Ratio 1.5 (0.9-1.1) H Activated Partial Thromboplast Time 41 SEC (23-33) H Sodium Level 144 MMOL/L (136-145) Chloride Level 108 MMOL/L (98-107) H Carbon Dioxide Level 28 MMOL/L (21-32) Anion Gap 8 mmol/L (5-15) Blood Urea Nitrogen 41 mg/dL (7-18) H Creatinine 2.6 MG/DL (0.55-1.30) H Estimat Glomerular Filtration Rate mL/min (>60) Glucose Level 69 MG/DL (74-106) L Hemoglobin A1c 5.7 % (4.3-6.0) Calcium Level 8.0 MG/DL (8.5-10.1) L Magnesium Level 2.1 MG/DL (1.8-2.4) Iron Level 6 ug/dL (50-175) L Total Iron Binding Capacity 202 ug/dL (250-450) L Percent Iron Saturation 3 % (15-50) L Unsaturated Iron Binding 196 ug/dL (112-346) Ferritin 158 NG/ML (8-388) Total Bilirubin 0.7 MG/DL (0.2-1.0) Aspartate Amino Transf (AST/SGOT) 11 U/L (15-37) L Alanine Aminotransferase (ALT/SGPT) 25 U/L (12-78) Alkaline Phosphatase 34 U/L (46-116) L Pro-B-Type Natriuretic Peptide 58681 pg/mL (0-125) H Total Protein 6.3 G/DL (6.4-8.2) L Albumin 2.4 G/DL (3.4-5.0) L Globulin 3.9 g/dL Albumin/Globulin Ratio 0.6 (1.0-2.7) L Triglycerides Level 35 MG/DL (30-150) Cholesterol Level < 50 MG/DL (< 200) LDL Cholesterol 12 mg/dL (<100) HDL Cholesterol 37 MG/DL (40-60) L Cholesterol/HDL Ratio 1.4 (3.3-4.4) L Carcinoembryonic Antigen Pending Vitamin B12 Level 633 PG/ML (193-986) Folate 12.6 NG/ML (8.6-58.9) Thyroid Stimulating Hormone (TSH) 1.074 uiU/mL (0.358-3.740) Hepatitis A IgM Antibody Pending Hepatitis B Surface Antigen Pending Hepatitis B Core IgM Antibody Pending Hepatitis C Antibody Pending HIV (1&2) Antibody Rapid Negative (NEGATIVE) Kieran Cedillo M.D. Oct 08, 2017 15:03
[2017-10-08 16:00] VITALS: BP 104/68
[2017-10-08 20:00] VITALS: BP 99/63
--- NOTE | 2017-10-08 20:31 | Consultation ---
DATE OF CONSULTATION: 10/08/2017 HEMATOLOGY/ONCOLOGY CONSULTATION CONSULTING PHYSICIAN: Christiano Hoffmann M.D. REQUESTING PHYSICIAN: 1Vandana Cabrera M.D. 2. . REASON FOR CONSULTATION: Evaluation of severe leukopenia and anemia. IDENTIFYING DATA: Dear Dr. Cabrera and , The patient is a pleasant 81-year-old male with past medical history significant for cirrhosis, CKD, and AFib, at this time presents to [facility] with shortness of breath and abdominal pain for the past several days. The patient is a poor historian and difficult to obtain any further history from the patient. He has been noted to have bilateral lower extremity edema past several days, WBC noted to be decreased. The patient has a history of atrial fibrillation with RVR. Again, WBC count decreased, 3+ leukocyte esterase, and he was started on antibiotics. Hematology Service was consulted for further evaluation and treatment. The patient recently admitted to [facility] for similar symptoms and as well. PAST MEDICAL HISTORY: Cirrhosis. PAST SURGICAL HISTORY: None noted. ALLERGIES: No known drug allergies. REVIEW OF SYSTEMS: CONSTITUTIONAL: No fevers, chills, or night sweats. SKIN: No rashes, bumps, or itching. HEENT: No headache, hearing or visual changes. BREASTS: No lumps, pain, or discharge. PULMONARY: No cough, sputum, or shortness of breath. GASTROINTESTINAL: No nausea, vomiting, or diarrhea. GENITOURINARY: No dysuria, frequency, or urgency. MUSCULOSKELETAL: No joint swelling, muscle pain, or trauma. PHYSICAL EXAMINATION: VITAL SIGNS: Reviewed. GENERAL: No acute distress. LUNGS: Decreased breath sounds. Some crackles noted. CARDIOVASCULAR: Regular rate. No S3 or S4. ABDOMEN: Soft, nontender, and nondistended. EXTREMITIES: A 1+ edema. LABORATORY DATA: HIV negative. Hepatitis negative. Abdominal ultrasound pending. ASSESSMENT AND RECOMMENDATIONS: 1. Leukopenia, severe. Hepatitis and human immunodeficiency virus are negative. Ultrasound of the abdomen is pending. Tumor markers pending as well. Likely leukopenia secondary to splenomegaly. The patient has been given 1 dose of . 2. Anemia due to underlying chronic disease, appears to be stable. 3. Coagulopathy, likely related to underlying cirrhosis of the liver. 4. Hyperkalemia, given Kayexalate, currently improved. 5. Biventricular failure with severe pulmonary hypertension. The patient is seen by Cardiology. 6. Ascites, status post paracentesis. I appreciate the consultation. Christiano Hoffmann M.D. DR: JOSÉ JOB#: [id number] CC:
[2017-10-08] MEDS: Dyna-Hex 2% Top Sol 2oz TOPIC SCH (21:22)
--- NOTE | 2017-10-08 23:14 | General Progress Note ---
Assessment/Plan Problem List: (1) Acute exacerbation of CHF (congestive heart failure) ICD Codes: I50.9 - Heart failure, unspecified SNOMED: 21182054 (2) Atrial fibrillation with RVR ICD Codes: I48.91 - Unspecified atrial fibrillation SNOMED: 127480131627943 (3) Leukopenia ICD Codes: D72.819 - Decreased white blood cell count, unspecified SNOMED: 91404835, 636962318 Qualifiers: Qualified Codes: D72.819 - Decreased white blood cell count, unspecified (4) UTI (urinary tract infection) ICD Codes: N39.0 - Urinary tract infection, site not specified SNOMED: 34929475 Qualifiers: Qualified Codes: N39.0 - Urinary tract infection, site not specified (5) Anemia ICD Codes: D64.9 - Anemia, unspecified SNOMED: 078222078 (6) Ascites ICD Codes: R18.8 - Other ascites SNOMED: 020098921 Qualifiers: Qualified Codes: K70.31 - Alcoholic cirrhosis of liver with ascites (7) Renal failure ICD Codes: N19 - Unspecified kidney failure SNOMED: 28064578 Qualifiers: Qualified Codes: N17.9 - Acute kidney failure, unspecified; N18.3 - Chronic kidney disease, stage 3 (moderate) (8) Hyperkalemia ICD Codes: E87.5 - Hyperkalemia SNOMED: 29887063 (9) Systolic and diastolic CHF, acute ICD Codes: I50.41 - Acute combined systolic (congestive) and diastolic ( congestive) heart failure SNOMED: 37543646, 843157372398971 (10) Hypoxia ICD Codes: R09.02 - Hypoxemia SNOMED: 934917805 Status: progressing Assessment/Plan - Cardiology consulted for A. fibb with RVR/acute CHF exacerbation - Heme/Onc consulted for leukopenia - Nephrology consulted for hyperkalemia/RAMONE - GI consulted for abdominal ascites/possible cirrhosis - Appreciate all cosmetic consultant rec's - s/p 1.3 L out with paracentesis with albumin 25% for hypotension - f/u albumin, culture and gram stain, cytology - check serial trops/EKG -- unremarkable - check BNP - check ECHO. Last ECHO showing 15-20% EF in 08/2017. Repeat ECHO showing 10-15% EF - Coreg increased to 25mg BID and started on hydralazine 50mg q8hr per cards - Continue ceftriaxone. F/u urine cx - f/u abdominal ultrasound - f/u hepatitis panel, HIV - f/u anemia workup, stool OB - monitor H/H - thiamine, folate, multivitamin - venous duplex BLE -- negative - replete lytes prn. Monitor BMP and Mg - hold xarelto for possible EgD - hold lisinopril and lasix for RAMONE - resume home meds including coreg DVT Prophylaxis: SCD, HSQ Code Status: Full Hospital Classification Declaration: Based on this initial evaluation, and depending on the patient's clinical course, I anticipate that this patient will require hospitalization for 3-5 days for Acute CHF exacerbation and ascites and close respiratory/hemodynamic monitoring. Disposition: Once the patient is stable to leave the hospital, I anticipate the patient will likely be discharged to the following environment: home with HH vs SNF I spent [] minutes on this patient's case, and [] minutes were dedicated to counseling and/or care coordination. Discussed with patient/family, nursing staff, SW/CM, all consultants as noted above regarding clinical status, treatment course, and disposition planning. Time of note may not reflect time of encounter. Subjective Date patient seen: Oct 08, 2017 Time patient seen: 23:00 Allergies: Coded Allergies: No Known Allergies (Unverified , 08/30/17) Subjective - s/p 1.3 L out yesterday - doing better. no cp or sob today - BP low in systolic 90s. afebrile - ECHO with 10-15% EF Objective Last 24 Hour Vital Signs Date Time Temp Pulse Resp B/P (MAP) Pulse Ox O2 Delivery O2 Flow Rate FiO2 10/08/17 22:00 99/63 10/08/17 21:00 123 99/63 10/08/17 20:00 99.0 123 24 99/63 (75) 95 99.0 10/08/17 20:00 126 10/08/17 16:00 97.7 84 20 104/68 (80) 96 97.7 10/08/17 16:00 160 10/08/17 14:00 93/62 10/08/17 12:00 120 10/08/17 12:00 98.4 106 19 93/62 (72) 93 98.4 10/08/17 09:57 97 18 Room Air 10/08/17 09:00 Room Air 10/08/17 08:25 121 89/54 10/08/17 08:00 98.6 121 20 89/54 (66) 94 98.6 10/08/17 08:00 124 10/08/17 06:00 101/62 10/08/17 04:00 98.0 80 20 101/62 (75) 97 98.0 10/08/17 04:00 102 10/08/17 00:00 105 10/08/17 00:00 97.7 22 22 99/53 (68) 96 97.7 83 Intake and Output 10/07/17 10/08/17 19:00 07:00 Intake Total 650 ml Balance 650 ml Intake Oral 0 ml IV Total 650 ml # Voids 2 Laboratory Tests 10/08/17 05:30: White Blood Count 4.5#L, Red Blood Count 3.19L, Hemoglobin 9.1L, Hematocrit 29.4L, Mean Corpuscular Volume 92, Mean Corpuscular Hemoglobin 28.4, Mean Corpuscular Hemoglobin Concent 30.8L, Red Cell Distribution Width 15.2H, Platelet Count 216, Mean Platelet Volume 6.9, Neutrophils (%) (Auto) 77.1H, Lymphocytes (%) (Auto) 9.8L, Monocytes (%) (Auto) 12.7H, Eosinophils (%) (Auto) 0.0, Basophils (%) (Auto) 0.5, Reticulocyte Count 0.7, Prothrombin Time 15.4H, Prothromb Time International Ratio 1.5H, Activated Partial Thromboplast Time 41H , Sodium Level 144, Potassium Level 4.4, Chloride Level 108H, Carbon Dioxide Level 28, Anion Gap 8, Blood Urea Nitrogen 41H, Creatinine 2.6H, Estimat Glomerular Filtration Rate , Glucose Level 69L, Hemoglobin A1c 5.7, Calcium Level 8.0L, Magnesium Level 2.1, Iron Level 6L, Total Iron Binding Capacity 202L , Percent Iron Saturation 3L, Unsaturated Iron Binding 196, Ferritin 158, Total Bilirubin 0.7, Aspartate Amino Transf (AST/SGOT) 11L, Alanine Aminotransferase ( ALT/SGPT) 25, Alkaline Phosphatase 34L, Troponin I 0.070H, Pro-B-Type Natriuretic Peptide 82927S, Total Protein 6.3L, Albumin 2.4L, Globulin 3.9, Albumin/Globulin Ratio 0.6L, Triglycerides Level 35, Cholesterol Level < 50, LDL Cholesterol 12, HDL Cholesterol 37L, Cholesterol/HDL Ratio 1.4L, Carcinoembryonic Antigen [Pending], Vitamin B12 Level 633, Folate 12.6, Thyroid Stimulating Hormone (TSH) 1.074, Hepatitis A IgM Antibody [Pending], Hepatitis B Surface Antigen [Pending], Hepatitis B Core IgM Antibody [Pending], Hepatitis C Antibody [Pending], HIV (1&2) Antibody Rapid Negative Height (Feet): 5 Height (Inches): 6.00 Weight (Pounds): 151 General Appearance: no apparent distress, alert EENT: PERRL/EOMI, normal ENT inspection Neck: non-tender, normal alignment, supple Cardiovascular: normal peripheral pulses, normal rate, regular rhythm Respiratory/Chest: chest wall non-tender, lungs clear, normal breath sounds Abdomen: normal bowel sounds, soft, tender Edema: moderate edema Neurologic: selling manager II-XII grossly normal, no motor/sensory deficits, alert, oriented x 3 Skin: normal pigmentation, warm/dry Valerie Lester NP Oct 08, 2017 23:14
[2017-10-09] VITALS: BP 98/65
[2017-10-09] MEDS: Heparin 5000 units/ml inj SUBQ SCH ×3 (00:01→20:47)
[2017-10-09 04:00] VITALS: BP 102/67
[2017-10-09 04:44] LABS: BASOPHILS % (AUTO) 0.4 % (0.0-2.0); HEMATOCRIT 31.8 % (42.0-52.0); HEMOGLOBIN 10.1 G/DL (14.2-18.0); LYMPHOCYTES % (AUTO) 7.7 % (20.0-45.0); MEAN CORPUSCULAR VOLUME 91 FL (80-99); MONOCYTES % (AUTO) 11.1 % (1.0-10.0); NEUTROPHILS % (AUTO) 80.8 % (45.0-75.0); PLATELET COUNT 223 K/UL (150-450); RED BLOOD COUNT 3.49 M/UL (4.70-6.10); WHITE BLOOD COUNT 6.6 K/UL (4.8-10.8)
[2017-10-09 05:02] LABS: BLOOD UREA NITROGEN 49 mg/dL (7-18); CALCIUM 8.2 MG/DL (8.5-10.1); CHLORIDE 107 MMOL/L (98-107); CREATININE 2.5 MG/DL (0.55-1.30); POTASSIUM 4.6 MMOL/L (3.5-5.1); SODIUM 140 MMOL/L (136-145)
[2017-10-09 05:05] LABS: PHOSPHORUS 5.7 MG/DL (2.5-4.9)
[2017-10-09 05:23] LABS: CARBON DIOXIDE 24 MMOL/L (21-32)
[2017-10-09] MEDS: HydrALAZINE 50mg tab ORAL SCH ×3 (05:47→22:00)
[2017-10-09 08:00] VITALS: BP 93/62
--- NOTE | 2017-10-09 08:29 | Nephrology Progress Note ---
Assessment/Plan Assessment/Plan 1. RAMONE on CKD 4- AM labs pending - Cr stable, cardiorenal in nature. EF 15% - PRN IVF's for hypotension. Hold off lasix for now 2. Severe Pulm HTN/Left Vent Dfx - per cardiology mgmt. Hold LIANNE-I and ARB due to hyperk+ 3. Hyperkalemia- resolved 4. CHF/ Cardiac Cirrhosis- alcohol induced - temp hold off aldactone/LIANNE-I and ARB due to hyperk+ 5. Septated Renal cyst- repeat Renal US in 6 months Subjective Date patient seen: Oct 09, 2017 Time patient seen: 08:27 ROS Limited/Unobtainable: No Allergies: Coded Allergies: No Known Allergies (Unverified , 08/30/17) All Systems: reviewed and negative except above Subjective Patient feeling better. No CP or SOB Objective Last 24 Hour Vital Signs Date Time Temp Pulse Resp B/P (MAP) Pulse Ox O2 Delivery O2 Flow Rate FiO2 10/09/17 05:47 102/67 10/09/17 04:00 117 10/09/17 04:00 98.0 118 24 102/67 (79) 95 98.0 10/09/17 00:00 98.0 115 22 98/65 (76) 96 98.0 10/09/17 00:00 118 10/08/17 22:00 99/63 10/08/17 21:00 123 99/63 10/08/17 21:00 Room Air 10/08/17 20:00 99.0 123 24 99/63 (75) 95 99.0 10/08/17 20:00 126 10/08/17 19:30 114 18 Room Air 21 10/08/17 16:00 97.7 84 20 104/68 (80) 96 97.7 10/08/17 16:00 160 10/08/17 14:00 93/62 10/08/17 12:00 120 10/08/17 12:00 98.4 106 19 93/62 (72) 93 98.4 10/08/17 09:57 97 18 Room Air 10/08/17 09:00 Room Air Intake and Output 10/08/17 10/09/17 19:00 07:00 Intake Total 920 ml Output Total 400 ml Balance 920 ml -400 ml Intake Oral 200 ml IV Total 720 ml Output Urine Total 400 ml # Voids 4 Laboratory Tests 10/09/17 04:00: White Blood Count 6.6, Red Blood Count 3.49L, Hemoglobin 10.1L, Hematocrit 31.8L , Mean Corpuscular Volume 91, Mean Corpuscular Hemoglobin 28.9, Mean Corpuscular Hemoglobin Concent 31.7L, Red Cell Distribution Width 15.0H, Platelet Count 223, Mean Platelet Volume 7.1, Neutrophils (%) (Auto) 80.8H, Lymphocytes (%) (Auto) 7.7L, Monocytes (%) (Auto) 11.1H, Eosinophils (%) (Auto) 0.0, Basophils (%) (Auto) 0.4, Sodium Level 140, Potassium Level 4.6, Chloride Level 107, Carbon Dioxide Level 24, Blood Urea Nitrogen 49H, Creatinine 2.5H, Estimat Glomerular Filtration Rate , Glucose Level 80, Calcium Level 8.2L, Phosphorus Level 5.7H, Magnesium Level 2.1 Height (Feet): 5 Height (Inches): 6.00 Weight (Pounds): 152 General Appearance: no apparent distress, alert EENT: normal ENT inspection Neck: normal alignment, supple Cardiovascular: normal rate, regular rhythm Respiratory/Chest: lungs clear, normal breath sounds Abdomen: normal bowel sounds, non tender, soft Edema: no edema noted Arm (L), no edema noted Arm (R), no edema noted Leg (L), no edema noted Leg (R), no edema noted Pedal (L), no edema noted Pedal (R), no edema noted Generalized Mehdi Lewis M.D. Oct 09, 2017 08:29
[2017-10-09] MEDS: Carvedilol 25mg Tab ORAL SCH ×2 (09:00→20:47)
[2017-10-09] MEDS: Thiamine 100mg tab ORAL SCH (09:02)
[2017-10-09] MEDS: cefTRIAXone 1 GM in D5W 110 ML IVPB SCH (09:04)
--- NOTE | 2017-10-09 09:46 | General Progress Note ---
Assessment/Plan Status: unchanged Assessment/Plan 1. Leukopenia, severe. Likely leukopenia secondary to splenomegaly. --> Hepatitis and human immunodeficiency virus are negative. --> Ultrasound of the abdomen shows nodular contour of the liver. --> Tumor markers pending 2. Anemia due to underlying chronic disease, appears to be stable. --> Anemia w/u has been reviewed, will trend daily. 3. Coagulopathy, likely related to underlying cirrhosis of the liver. 4. Hyperkalemia, given Kayexalate, currently improved. 5. Biventricular failure with severe pulmonary hypertension. The patient is seen by Cardiology. 6. Ascites, status post paracentesis. The time the note was entered does not necessarily correspond to the time the patient was seen. Subjective Date patient seen: Oct 09, 2017 Hematologic/Lymphatic: Reports: anemia Allergies: Coded Allergies: No Known Allergies (Unverified , 08/30/17) All Systems: reviewed and negative except above Subjective No acute evetns, pt feeling better. No CP or SOB. WBC improving. Objective Last 24 Hour Vital Signs Date Time Temp Pulse Resp B/P (MAP) Pulse Ox O2 Delivery O2 Flow Rate FiO2 10/09/17 09:00 121 93/62 10/09/17 08:00 97.0 121 20 93/62 (72) 99 97.0 10/09/17 05:47 102/67 10/09/17 04:00 117 10/09/17 04:00 98.0 118 24 102/67 (79) 95 98.0 10/09/17 00:00 98.0 115 22 98/65 (76) 96 98.0 10/09/17 00:00 118 10/08/17 22:00 99/63 10/08/17 21:00 123 99/63 10/08/17 21:00 Room Air 10/08/17 20:00 99.0 123 24 99/63 (75) 95 99.0 10/08/17 20:00 126 10/08/17 19:30 114 18 Room Air 21 10/08/17 16:00 97.7 84 20 104/68 (80) 96 97.7 10/08/17 16:00 160 10/08/17 14:00 93/62 10/08/17 12:00 120 10/08/17 12:00 98.4 106 19 93/62 (72) 93 98.4 10/08/17 09:57 97 18 Room Air Intake and Output 10/08/17 10/09/17 19:00 07:00 Intake Total 920 ml Output Total 400 ml Balance 920 ml -400 ml Intake Oral 200 ml IV Total 720 ml Output Urine Total 400 ml # Voids 4 Laboratory Tests 10/09/17 04:00: White Blood Count 6.6, Red Blood Count 3.49L, Hemoglobin 10.1L, Hematocrit 31.8L , Mean Corpuscular Volume 91, Mean Corpuscular Hemoglobin 28.9, Mean Corpuscular Hemoglobin Concent 31.7L, Red Cell Distribution Width 15.0H, Platelet Count 223, Mean Platelet Volume 7.1, Neutrophils (%) (Auto) 80.8H, Lymphocytes (%) (Auto) 7.7L, Monocytes (%) (Auto) 11.1H, Eosinophils (%) (Auto) 0.0, Basophils (%) (Auto) 0.4, Sodium Level 140, Potassium Level 4.6, Chloride Level 107, Carbon Dioxide Level 24, Blood Urea Nitrogen 49H, Creatinine 2.5H, Estimat Glomerular Filtration Rate , Glucose Level 80, Calcium Level 8.2L, Phosphorus Level 5.7H, Magnesium Level 2.1 Height (Feet): 5 Height (Inches): 6.00 Weight (Pounds): 152 General Appearance: no apparent distress EENT: PERRL/EOMI Neck: normal alignment Cardiovascular: tachycardia Respiratory/Chest: no respiratory distress Abdomen: tender Christiano Hoffmann MD Oct 09, 2017 09:46
[2017-10-09 12:00] VITALS: BP 99/57
--- NOTE | 2017-10-09 15:10 | Internal Med Progress Note ---
Subjective Physician Name KaroReal Attending Physician Orlin Cabrera MD Current Medications Medications (Trade) Dose Ordered Sig/Saul Route PRN Reason Start Time Stop Time Status Last Admin Dose Admin Albuterol/ Ipratropium (Albuterol/ Ipratropium) 3 ml Q4H PRN HHN Shortness of Breath 10/07/17 15:15 10/12/17 15:14 Carvedilol (Coreg) 25 mg EVERY 12 HOURS ORAL 10/09/17 09:00 11/08/17 08:59 Ceftriaxone Sodium 1 gm/ Dextrose 110 ml @ 220 mls/hr DAILY IVPB 10/08/17 09:00 10/15/17 08:59 10/09/17 09:04 Chlorhexidine Gluconate (Sofia-Hex 2%) 1 applic DAILY@2000 TOPIC 10/08/17 20:00 11/07/17 19:59 10/08/17 21:22 Dextrose (Dextrose 50%) 25 ml STAT PRN IV Hypoglycemia 10/07/17 15:15 11/06/17 15:14 Dextrose (Dextrose 50%) 50 ml STAT PRN IV Hypoglycemia 10/07/17 15:15 11/06/17 15:14 Folic Acid (Folate) 1 mg DAILY ORAL 10/09/17 09:00 11/08/17 08:59 10/09/17 09:02 Heparin Sodium (Porcine) (Heparin 5000 units/ml) 5,000 units EVERY 12 HOURS SUBQ 10/09/17 00:00 11/08/17 00:00 10/09/17 09:03 Hydralazine HCl (Apresoline) 50 mg EVERY 8 HOURS ORAL 10/09/17 06:00 11/08/17 05:59 Hydromorphone HCl (Dilaudid) 0.5 mg Q3H PRN IVP Breakthrough Pain 10/07/17 15:15 10/14/17 15:14 Lorazepam (Ativan 2mg/ml 1ml) 0.5 mg Q4H PRN IV For Anxiety 10/07/17 15:15 10/14/17 15:14 Morphine Sulfate (Morphine Sulfate) 1 mg Q3H PRN IVP Severe Pain (Pain Scale 7-10) 10/07/17 15:15 10/14/17 15:14 10/08/17 06:58 Multivitamins (Multivitamins) 1 tab DAILY ORAL 10/09/17 09:00 11/08/17 08:59 10/09/17 09:02 Ondansetron HCl (Zofran) 4 mg Q6H PRN IVP Nausea & Vomiting 10/07/17 15:15 11/06/17 15:14 Thiamine HCl (Vitamin B1) 100 mg DAILY ORAL 10/09/17 09:00 11/08/17 08:59 10/09/17 09:02 Allergies: Coded Allergies: No Known Allergies (Unverified , 08/30/17) Objective Last Vital Signs Date Time Temp Pulse Resp B/P (MAP) Pulse Ox O2 Delivery O2 Flow Rate FiO2 10/09/17 13:31 99/57 10/09/17 12:00 110 10/09/17 12:00 97.9 19 97 97.9 10/09/17 09:00 Room Air 10/08/17 19:30 21 Laboratory Tests Test 10/09/17 04:00 White Blood Count 6.6 K/UL (4.8-10.8) Red Blood Count 3.49 M/UL (4.70-6.10) L Hemoglobin 10.1 G/DL (14.2-18.0) L Hematocrit 31.8 % (42.0-52.0) L Mean Corpuscular Volume 91 FL (80-99) Mean Corpuscular Hemoglobin 28.9 PG (27.0-31.0) Mean Corpuscular Hemoglobin Concent 31.7 G/DL (32.0-36.0) L Red Cell Distribution Width 15.0 % (11.6-14.8) H Platelet Count 223 K/UL (150-450) Mean Platelet Volume 7.1 FL (6.5-10.1) Neutrophils (%) (Auto) 80.8 % (45.0-75.0) H Lymphocytes (%) (Auto) 7.7 % (20.0-45.0) L Monocytes (%) (Auto) 11.1 % (1.0-10.0) H Eosinophils (%) (Auto) 0.0 % (0.0-3.0) Basophils (%) (Auto) 0.4 % (0.0-2.0) Sodium Level 140 MMOL/L (136-145) Potassium Level 4.6 MMOL/L (3.5-5.1) Chloride Level 107 MMOL/L (98-107) Carbon Dioxide Level 24 MMOL/L (21-32) Blood Urea Nitrogen 49 mg/dL (7-18) H Creatinine 2.5 MG/DL (0.55-1.30) H Estimat Glomerular Filtration Rate mL/min (>60) Glucose Level 80 MG/DL (74-106) Calcium Level 8.2 MG/DL (8.5-10.1) L Phosphorus Level 5.7 MG/DL (2.5-4.9) H Magnesium Level 2.1 MG/DL (1.8-2.4) Microbiology Date/Time Source Procedure Growth Status 10/07/17 15:30 Ascities Fluid Gram Stain - Final Resulted 10/07/17 15:30 Body Fluid Culture - Preliminary Gram Negative Bacillus 1 Resulted 10/07/17 14:10 Nasal Nares MRSA Culture - Final NO METHICILLIN RESISTANT STAPH AUREUS... Complete 10/07/17 14:10 Rectum VRE Culture - Final NO VANCOMYCIN RESISTANT ENTEROCOCCUS ... Complete Intake and Output 10/08/17 10/09/17 19:00 07:00 Intake Total 920 ml Output Total 400 ml Balance 920 ml -400 ml Intake Oral 200 ml IV Total 720 ml Output Urine Total 400 ml # Voids 4 Assessment/Plan Assessment/Plan Assessment/Plan Assessment/Plan Problem List: (1) Acute exacerbation of CHF (congestive heart failure) ICD Codes: I50.9 - Heart failure, unspecified SNOMED: 76358353 (2) Atrial fibrillation with RVR ICD Codes: I48.91 - Unspecified atrial fibrillation SNOMED: 210196331585171 (3) Leukopenia ICD Codes: D72.819 - Decreased white blood cell count, unspecified SNOMED: 32060264, 793900496 Qualifiers: Qualified Codes: D72.819 - Decreased white blood cell count, unspecified (4) UTI (urinary tract infection) ICD Codes: N39.0 - Urinary tract infection, site not specified SNOMED: 88693861 Qualifiers: Qualified Codes: N39.0 - Urinary tract infection, site not specified (5) Anemia ICD Codes: D64.9 - Anemia, unspecified SNOMED: 989382987 (6) Ascites ICD Codes: R18.8 - Other ascites SNOMED: 945298160 Qualifiers: Qualified Codes: K70.31 - Alcoholic cirrhosis of liver with ascites (7) Renal failure ICD Codes: N19 - Unspecified kidney failure SNOMED: 32896610 Qualifiers: Qualified Codes: N17.9 - Acute kidney failure, unspecified; N18.3 - Chronic kidney disease, stage 3 (moderate) (8) Hyperkalemia ICD Codes: E87.5 - Hyperkalemia SNOMED: 84989475 (9) Systolic and diastolic CHF, acute ICD Codes: I50.41 - Acute combined systolic (congestive) and diastolic ( congestive) heart failure SNOMED: 23114500, 988995737444944 (10) Hypoxia ICD Codes: R09.02 - Hypoxemia SNOMED: 436830387 Status: progressing Assessment/Plan - Cardiology consulted for A. fibb with RVR/acute CHF exacerbation - Heme/Onc consulted for leukopenia - Nephrology consulted for hyperkalemia/RAMONE - GI consulted for abdominal ascites/possible cirrhosis - Appreciate all data integrity consultant rec's - s/p 1.3 L out with paracentesis with albumin 25% for hypotension - f/u albumin, culture and gram stain, cytology - check serial trops/EKG -- unremarkable - check BNP - check ECHO. Last ECHO showing 15-20% EF in 08/2017. Repeat ECHO showing 10-15% EF - Coreg increased to 25mg BID and started on hydralazine 50mg q8hr per cards - Continue ceftriaxone. F/u urine cx - f/u abdominal ultrasound - f/u hepatitis panel, HIV - f/u anemia workup, stool OB - monitor H/H - thiamine, folate, multivitamin - venous duplex BLE -- negative - replete lytes prn. Monitor BMP and Mg - hold xarelto for possible EgD - hold lisinopril and lasix for RAMONE - resume home meds including coreg DVT Prophylaxis: SCD, HSQ Code Status: Full Hospital Classification Declaration: Based on this initial evaluation, and depending on the patient's clinical course, I anticipate that this patient will require hospitalization for 3-5 days for Acute CHF exacerbation and ascites and close respiratory/hemodynamic monitoring. Disposition: Once the patient is stable to leave the hospital, I anticipate the patient will likely be discharged to the following environment: home with HH vs SNF I spent [] minutes on this patient's case, and [] minutes were dedicated to counseling and/or care coordination. Discussed with patient/family, nursing staff, SW/CM, all consultants as noted above regarding clinical status, treatment course, and disposition planning. Time of note may not reflect time of encounter. Subjective Subjective Date patient seen: Oct 08, 2017 Time patient seen: 23:00 Allergies: Coded Allergies: No Known Allergies (Unverified , 08/30/17) Subjective - doing better. no cp or sob today - BP low in systolic 90s. afebrile - ECHO with 10-15% EF Objective Objective Last 24 Hour Vital Signs Date Time Temp Pulse Resp B/P (MAP) Pulse Ox O2 Delivery O2 Flow Rate FiO2 10/08/17 22:00 99/63 10/08/17 21:00 123 99/63 10/08/17 20:00 99.0 123 24 99/63 (75) 95 99.0 10/08/17 20:00 126 10/08/17 16:00 97.7 84 20 104/68 (80) 96 97.7 10/08/17 16:00 160 10/08/17 14:00 93/62 10/08/17 12:00 120 10/08/17 12:00 98.4 106 19 93/62 (72) 93 98.4 10/08/17 09:57 97 18 Room Air 10/08/17 09:00 Room Air 10/08/17 08:25 121 89/54 10/08/17 08:00 98.6 121 20 89/54 (66) 94 98.6 10/08/17 08:00 124 10/08/17 06:00 101/62 10/08/17 04:00 98.0 80 20 101/62 (75) 97 98.0 10/08/17 04:00 102 10/08/17 00:00 105 10/08/17 00:00 97.7 22 22 99/53 (68) 96 97.7 83 Intake and Output 10/07/17 10/08/17 19:00 07:00 Intake Total 650 ml Balance 650 ml Intake Oral 0 ml IV Total 650 ml # Voids 2 Laboratory Tests 10/08/17 05:30: White Blood Count 4.5#L, Red Blood Count 3.19L, Hemoglobin 9.1L, Hematocrit 29.4L, Mean Corpuscular Volume 92, Mean Corpuscular Hemoglobin 28.4, Mean Corpuscular Hemoglobin Concent 30.8L, Red Cell Distribution Width 15.2H, Platelet Count 216, Mean Platelet Volume 6.9, Neutrophils (%) (Auto) 77.1H, Lymphocytes (%) (Auto) 9.8L, Monocytes (%) (Auto) 12.7H, Eosinophils (%) (Auto) 0.0, Basophils (%) (Auto) 0.5, Reticulocyte Count 0.7, Prothrombin Time 15.4H, Prothromb Time International Ratio 1.5H, Activated Partial Thromboplast Time 41H , Sodium Level 144, Potassium Level 4.4, Chloride Level 108H, Carbon Dioxide Level 28, Anion Gap 8, Blood Urea Nitrogen 41H, Creatinine 2.6H, Estimat Glomerular Filtration Rate , Glucose Level 69L, Hemoglobin A1c 5.7, Calcium Level 8.0L, Magnesium Level 2.1, Iron Level 6L, Total Iron Binding Capacity 202L , Percent Iron Saturation 3L, Unsaturated Iron Binding 196, Ferritin 158, Total Bilirubin 0.7, Aspartate Amino Transf (AST/SGOT) 11L, Alanine Aminotransferase ( ALT/SGPT) 25, Alkaline Phosphatase 34L, Troponin I 0.070H, Pro-B-Type Natriuretic Peptide 11045M, Total Protein 6.3L, Albumin 2.4L, Globulin 3.9, Albumin/Globulin Ratio 0.6L, Triglycerides Level 35, Cholesterol Level < 50, LDL Cholesterol 12, HDL Cholesterol 37L, Cholesterol/HDL Ratio 1.4L, Carcinoembryonic Antigen [Pending], Vitamin B12 Level 633, Folate 12.6, Thyroid Stimulating Hormone (TSH) 1.074, Hepatitis A IgM Antibody [Pending], Hepatitis B Surface Antigen [Pending], Hepatitis B Core IgM Antibody [Pending], Hepatitis C Antibody [Pending], HIV (1&2) Antibody Rapid Negative Height (Feet): 5 Height (Inches): 6.00 Weight (Pounds): 151 General Appearance: no apparent distress, alert EENT: PERRL/EOMI, normal ENT inspection Neck: non-tender, normal alignment, supple Cardiovascular: normal peripheral pulses, normal rate, regular rhythm Respiratory/Chest: chest wall non-tender, lungs clear, normal breath sounds Abdomen: normal bowel sounds, soft, tender Edema: moderate edema Neurologic: metal container maker II-XII grossly normal, no motor/sensory deficits, alert, oriented x 3 Skin: normal pigmentation, warm/dry Real Huddleston M.D. Oct 09, 2017 15:10
--- NOTE | 2017-10-09 15:50 | Cardiology Progress Note ---
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 No cath indicated due to lack of symptoms and objective findings of ACS and poor renal function Continue heart failure medications: Coreg - increase dose as tolerated Hold LIANNE/ARB given renal function Could consider hydralazine/nitro if renal function doesnt recover Not a candidate for entresto Hold aspirin/anticoagulation for endoscopy IV albumin bolus for hypotension Restart lasix tomorrow if renal function improved and BP stable Subjective Cardiovascular: Reports: no symptoms Respiratory: Reports: no symptoms Genitourinary: Reports: no symptoms Subjective NO acute events, no CP/SOB, abdominal distension improved. No complaints SBP 90s, tolerating medications Objective Last 24 Hour Vital Signs Date Time Temp Pulse Resp B/P (MAP) Pulse Ox O2 Delivery O2 Flow Rate FiO2 10/09/17 13:31 99/57 10/09/17 12:00 110 10/09/17 12:00 97.9 115 19 99/57 (71) 97 97.9 10/09/17 09:00 Room Air 10/09/17 09:00 121 93/62 10/09/17 08:00 125 10/09/17 08:00 97.0 121 20 93/62 (72) 99 97.0 10/09/17 05:47 102/67 10/09/17 04:00 117 10/09/17 04:00 98.0 118 24 102/67 (79) 95 98.0 10/09/17 00:00 98.0 115 22 98/65 (76) 96 98.0 10/09/17 00:00 118 10/08/17 22:00 99/63 10/08/17 21:00 123 99/63 10/08/17 21:00 Room Air 10/08/17 20:00 99.0 123 24 99/63 (75) 95 99.0 10/08/17 20:00 126 10/08/17 19:30 114 18 Room Air 21 10/08/17 16:00 97.7 84 20 104/68 (80) 96 97.7 10/08/17 16:00 160 General Appearance: no apparent distress EENT: PERRL/EOMI Neck: non-tender Rhythm: NSR Cardiovascular: normal peripheral pulses Respiratory/Chest: chest wall non-tender Abdomen: normal bowel sounds, distended, hepatomegaly, splenomegaly Extremities: normal range of motion Neurologic: generalist II-XII grossly normal Intake and Output 10/08/17 10/09/17 19:00 07:00 Intake Total 920 ml Output Total 400 ml Balance 920 ml -400 ml Intake Oral 200 ml IV Total 720 ml Output Urine Total 400 ml # Voids 4 Laboratory Tests Test 10/09/17 04:00 10/09/17 15:05 White Blood Count 6.6 K/UL (4.8-10.8) Red Blood Count 3.49 M/UL (4.70-6.10) L Hemoglobin 10.1 G/DL (14.2-18.0) L Hematocrit 31.8 % (42.0-52.0) L Mean Corpuscular Volume 91 FL (80-99) Mean Corpuscular Hemoglobin 28.9 PG (27.0-31.0) Mean Corpuscular Hemoglobin Concent 31.7 G/DL (32.0-36.0) L Red Cell Distribution Width 15.0 % (11.6-14.8) H Platelet Count 223 K/UL (150-450) Mean Platelet Volume 7.1 FL (6.5-10.1) Neutrophils (%) (Auto) 80.8 % (45.0-75.0) H Lymphocytes (%) (Auto) 7.7 % (20.0-45.0) L Monocytes (%) (Auto) 11.1 % (1.0-10.0) H Eosinophils (%) (Auto) 0.0 % (0.0-3.0) Basophils (%) (Auto) 0.4 % (0.0-2.0) Sodium Level 140 MMOL/L (136-145) Potassium Level 4.6 MMOL/L (3.5-5.1) Chloride Level 107 MMOL/L (98-107) Carbon Dioxide Level 24 MMOL/L (21-32) Blood Urea Nitrogen 49 mg/dL (7-18) H Creatinine 2.5 MG/DL (0.55-1.30) H Estimat Glomerular Filtration Rate mL/min (>60) Glucose Level 80 MG/DL (74-106) Calcium Level 8.2 MG/DL (8.5-10.1) L Phosphorus Level 5.7 MG/DL (2.5-4.9) H Magnesium Level 2.1 MG/DL (1.8-2.4) Troponin I 0.512 ng/mL (0.000-0.056) Microbiology Date/Time Source Procedure Growth Status 10/07/17 15:30 Ascities Fluid Gram Stain - Final Resulted 10/07/17 15:30 Body Fluid Culture - Preliminary Gram Negative Bacillus 1 Resulted 10/07/17 14:10 Nasal Nares MRSA Culture - Final NO METHICILLIN RESISTANT STAPH AUREUS... Complete 10/07/17 14:10 Rectum VRE Culture - Final NO VANCOMYCIN RESISTANT ENTEROCOCCUS ... Complete Kieran Cedillo M.D. Oct 09, 2017 15:50
[2017-10-09 16:00] VITALS: BP 98/53
[2017-10-09 20:00] VITALS: BP 97/71
[2017-10-09] MEDS: Dyna-Hex 2% Top Sol 2oz TOPIC SCH (20:46)
[2017-10-10] VITALS: BP 100/63
[2017-10-10 04:00] VITALS: BP 97/61
[2017-10-10] MEDS: HydrALAZINE 50mg tab ORAL SCH ×3 (05:48→22:00)
[2017-10-10 05:53] LABS: ANION GAP 8 mmol/L (5-15); BLOOD UREA NITROGEN 50 mg/dL (7-18); CALCIUM 8.2 MG/DL (8.5-10.1); CARBON DIOXIDE 26 MMOL/L (21-32); CHLORIDE 104 MMOL/L (98-107); CREATININE 2.3 MG/DL (0.55-1.30); SODIUM 137 MMOL/L (136-145)
[2017-10-10 08:00] VITALS: BP 105/70
[2017-10-10] MEDS: Carvedilol 25mg Tab ORAL SCH ×3 (08:47→21:00)
[2017-10-10] MEDS: Imdur 30mg tab ORAL SCH (08:47)
[2017-10-10] MEDS: Thiamine 100mg tab ORAL SCH (08:47)
[2017-10-10] MEDS: cefTRIAXone 1 GM in D5W 110 ML IVPB SCH (08:48)
--- NOTE | 2017-10-10 08:53 | Nephrology Progress Note ---
Assessment/Plan Assessment/Plan 1. CKD 4- Cr 2.3 - Cr stable, cardiorenal in nature. EF 15% - Will restart po lasix today and monitor BP 2. Severe Pulm HTN/Left Vent Dfx - per cardiology mgmt. Hold LIANNE-I and ARB due to hyperk+ 3. Hyperkalemia- resolved 4. CHF/ Cardiac Cirrhosis- alcohol induced - temp hold off aldactone/LIANNE-I and ARB due to hyperk+ - restart lasix. Due to hypotension and hyperk+ would avoid aldactone/ lisinopril and / or ARB 5. Septated Renal cyst- repeat Renal US in 6 months Subjective Date patient seen: Oct 10, 2017 Time patient seen: 08:51 ROS Limited/Unobtainable: No Constitutional: Reports: weakness Allergies: Coded Allergies: No Known Allergies (Unverified , 08/30/17) All Systems: reviewed and negative except above Subjective Patient feeling better. No CP or SOB. Eating well Objective Last 24 Hour Vital Signs Date Time Temp Pulse Resp B/P (MAP) Pulse Ox O2 Delivery O2 Flow Rate FiO2 10/10/17 08:47 105/70 10/10/17 08:00 97.7 98 20 105/70 (82) 98 97.7 10/10/17 05:48 97/61 10/10/17 04:00 98.7 100 20 97/61 (73) 97 98.7 10/10/17 04:00 148 10/10/17 00:00 104 10/10/17 00:00 98.0 115 21 100/63 (75) 96 98.0 10/09/17 22:00 97/71 10/09/17 21:00 Room Air 10/09/17 20:47 110 97/71 10/09/17 20:00 98.0 110 20 97/71 (80) 100 98.0 10/09/17 20:00 112 10/09/17 16:00 97.6 103 18 98/53 (68) 97 97.6 10/09/17 16:00 102 10/09/17 13:31 99/57 10/09/17 12:00 110 10/09/17 12:00 97.9 115 19 99/57 (71) 97 97.9 10/09/17 09:00 Room Air 10/09/17 09:00 121 93/62 Intake and Output 7/14/18 7/15/18 19:00 07:00 Intake Total 1020 ml Output Total 600 ml Balance 1020 ml -600 ml Intake Oral 800 ml IV Total 220 ml Output Urine Total 600 ml # Voids 6 Laboratory Tests 10/09/17 15:05: Troponin I 0.512H 10/09/17 21:00: Troponin I 0.470H 10/10/17 04:00: Sodium Level 137, Potassium Level 4.0, Chloride Level 104, Carbon Dioxide Level 26, Anion Gap 8, Blood Urea Nitrogen 50H, Creatinine 2.3H, Estimat Glomerular Filtration Rate , Glucose Level 115H, Calcium Level 8.2L Height (Feet): 5 Height (Inches): 6.00 Weight (Pounds): 155 General Appearance: no apparent distress, alert EENT: normal ENT inspection Neck: non-tender, normal alignment, supple Cardiovascular: normal rate, regular rhythm Respiratory/Chest: lungs clear, normal breath sounds Abdomen: normal bowel sounds, non tender, soft Edema: no edema noted Arm (L), no edema noted Arm (R), no edema noted Leg (L), no edema noted Leg (R), no edema noted Pedal (L), no edema noted Pedal (R), no edema noted Generalized Mehdi Lewis M.D. Oct 10, 2017 08:53
[2017-10-10] MEDS: Heparin 5000 units/ml inj SUBQ SCH ×2 (08:59→21:15)
[2017-10-10] MEDS: Furosemide 40mg tab ORAL SCH (09:24)
[2017-10-10 11:55] VITALS: BP 102/64
--- NOTE | 2017-10-10 13:24 | Cardiology Report ---
APPROVED REPORT EXAM: Two-dimensional and M-mode echocardiogram with Doppler and color Doppler. INDICATION Congestive Heart Failure M-Mode DIMENSIONS IVSd1.2 (0.7-1.1cm)Left Atrium (MM)6.1 (1.6-4.0cm) LVDd7.2 (3.5-5.6cm)Aortic Root3.9 (2.0-3.7cm) PWd1.3 (0.7-1.1cm)Aortic Cusp Exc.2.4 (1.5-2.0cm) LVDs6.7 (2.5-4.0cm) PWs1.5 cm Moderate left ventricular enlargement. Global left ventricular akinesia except the septal wall which is dyskinetic.There is marked septal wall thinning. D-shaped septum is s/o increased RV pressure/volume overload. Left ventricular ejection fraction estimated to be 10-15%.Ischemic cardiomyopathy cannot be excluded. Increased E point-interventricular septal separation c/w left ventricular dysfunction. No evidence of left ventricular hypertrophy. Small posterior pericardial effusion. Large posterior pleural effusion. Moderate right ventricular enlargement with reduced function. Focal aortic valve sclerosis with adequate cusp excursion. Thickened mitral valve leaflets with normal excursion. Mitral annulus and aortic root calcification. Mild aortic root dilatation. Thickened pulmonic valve leaflets with normal excursion. Normal tricuspid valve structure. IVC dilated at 3.1 cm without physiologic collapse suggestive of RA pressure at least 20 mmHg. A color flow and spectral Doppler study was performed and revealed: Mild to moderate aortic regurgitation. Moderate to severe posteriorly eccentric mitral regurgitation. Can not determine left ventricular diastolic function by mitral diastolic velocities due to atrial fibrillation. Moderate to severe tricuspid regurgitation. Tricuspid systolic velocities suggests peak right ventricular systolic pressure of 75 mmHg, consistent with severe pulmonary hypertension. Moderate pulmonic regurgitation present.
--- NOTE | 2017-10-10 14:06 | General Progress Note ---
Assessment/Plan Status: unchanged Assessment/Plan 1. Leukopenia, severe. Likely leukopenia secondary to splenomegaly. --> Hepatitis and human immunodeficiency virus are both negative. --> Ultrasound of the abdomen shows nodular contour of the liver. --> Tumor markers pending 2. Anemia due to underlying chronic disease, appears to be stable. --> Anemia w/u has been reviewed, will trend daily. --> Hgb goal >7 3. Coagulopathy, likely related to underlying cirrhosis of the liver. 4. Hyperkalemia, given Kayexalate, currently improved. 5. Biventricular failure with severe pulmonary hypertension. The patient is seen by Cardiology. 6. Ascites, status post paracentesis. The time the note was entered does not necessarily correspond to the time the patient was seen. Subjective Date patient seen: Oct 10, 2017 ROS Limited/Unobtainable: Yes Allergies: Coded Allergies: No Known Allergies (Unverified , 08/30/17) All Systems: reviewed and negative except above Subjective Pt s/p paracentesis with 1.3 liter fluid removed. 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 No cath indicated due to lack of symptoms and objective findings of ACS and poor renal function. Continue heart failure medications: Coreg - increase dose as tolerated Objective Last 24 Hour Vital Signs Date Time Temp Pulse Resp B/P (MAP) Pulse Ox O2 Delivery O2 Flow Rate FiO2 10/10/17 13:46 113/69 10/10/17 11:55 98.0 101 20 102/64 (77) 98 98.0 10/10/17 09:00 98 105/70 10/10/17 09:00 Room Air 10/10/17 08:47 105/70 10/10/17 08:00 97.7 98 20 105/70 (82) 98 97.7 10/10/17 05:48 97/61 10/10/17 04:00 98.7 100 20 97/61 (73) 97 98.7 10/10/17 04:00 148 10/10/17 00:00 104 10/10/17 00:00 98.0 115 21 100/63 (75) 96 98.0 10/09/17 22:00 97/71 10/09/17 21:00 Room Air 10/09/17 20:47 110 97/71 10/09/17 20:00 98.0 110 20 97/71 (80) 100 98.0 10/09/17 20:00 112 10/09/17 16:00 97.6 103 18 98/53 (68) 97 97.6 10/09/17 16:00 102 Intake and Output 10/09/17 10/10/17 19:00 07:00 Intake Total 1020 ml Output Total 600 ml Balance 1020 ml -600 ml Intake Oral 800 ml IV Total 220 ml Output Urine Total 600 ml # Voids 6 Laboratory Tests 10/09/17 15:05: Troponin I 0.512H 10/09/17 21:00: Troponin I 0.470H 10/10/17 04:00: Sodium Level 137, Potassium Level 4.0, Chloride Level 104, Carbon Dioxide Level 26, Anion Gap 8, Blood Urea Nitrogen 50H, Creatinine 2.3H, Estimat Glomerular Filtration Rate , Glucose Level 115H, Calcium Level 8.2L Height (Feet): 5 Height (Inches): 6.00 Weight (Pounds): 155 General Appearance: no apparent distress EENT: PERRL/EOMI Neck: non-tender, normal alignment Cardiovascular: tachycardia Respiratory/Chest: normal breath sounds, no respiratory distress Abdomen: soft Christiano Hoffmann MD Oct 10, 2017 14:06
--- NOTE | 2017-10-10 15:33 | Cardiology Progress Note ---
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 Faisal Jackson for severe MR Subjective Cardiovascular: Reports: no symptoms Respiratory: Reports: no symptoms Gastrointestinal/Abdominal: Reports: no symptoms Genitourinary: Reports: no symptoms Subjective NO acute events, no CP/SOB, abdominal distension improved. No complaints SBP 90s, tolerating medications Objective Last 24 Hour Vital Signs Date Time Temp Pulse Resp B/P (MAP) Pulse Ox O2 Delivery O2 Flow Rate FiO2 10/10/17 13:46 113/69 10/10/17 12:00 85 10/10/17 11:55 98.0 101 20 102/64 (77) 98 98.0 10/10/17 09:00 98 105/70 10/10/17 09:00 Room Air 10/10/17 08:47 105/70 10/10/17 08:00 97.7 98 20 105/70 (82) 98 97.7 10/10/17 08:00 119 10/10/17 05:48 97/61 10/10/17 04:00 98.7 100 20 97/61 (73) 97 98.7 10/10/17 04:00 148 10/10/17 00:00 104 10/10/17 00:00 98.0 115 21 100/63 (75) 96 98.0 10/09/17 22:00 97/71 10/09/17 21:00 Room Air 10/09/17 20:47 110 97/71 10/09/17 20:00 98.0 110 20 97/71 (80) 100 98.0 10/09/17 20:00 112 10/09/17 16:00 97.6 103 18 98/53 (68) 97 97.6 10/09/17 16:00 102 General Appearance: no apparent distress EENT: PERRL/EOMI Neck: non-tender Rhythm: ST Cardiovascular: normal peripheral pulses Respiratory/Chest: chest wall non-tender Abdomen: normal bowel sounds Extremities: normal range of motion 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 Intake and Output 10/09/17 10/10/17 19:00 07:00 Intake Total 1020 ml Output Total 600 ml Balance 1020 ml -600 ml Intake Oral 800 ml IV Total 220 ml Output Urine Total 600 ml # Voids 6 Laboratory Tests Test 10/09/17 21:00 10/10/17 04:00 Troponin I 0.470 ng/mL (0.000-0.056) Sodium Level 137 MMOL/L (136-145) Potassium Level 4.0 MMOL/L (3.5-5.1) Chloride Level 104 MMOL/L (98-107) Carbon Dioxide Level 26 MMOL/L (21-32) Anion Gap 8 mmol/L (5-15) Blood Urea Nitrogen 50 mg/dL (7-18) H Creatinine 2.3 MG/DL (0.55-1.30) H Estimat Glomerular Filtration Rate mL/min (>60) Glucose Level 115 MG/DL (74-106) H Calcium Level 8.2 MG/DL (8.5-10.1) Kieran Paulino M.D. Oct 10, 2017 15:33
[2017-10-10 15:57] VITALS: BP 112/65
--- NOTE | 2017-10-10 17:11 | Internal Med Progress Note ---
Subjective Physician Name KaroReal Attending Physician Orlin Cabrera MD Current Medications Medications (Trade) Dose Ordered Sig/Saul Route PRN Reason Start Time Stop Time Status Last Admin Dose Admin Albuterol/ Ipratropium (Albuterol/ Ipratropium) 3 ml Q4H PRN HHN Shortness of Breath 10/07/17 15:15 10/12/17 15:14 Carvedilol (Coreg) 25 mg EVERY 12 HOURS ORAL 10/09/17 09:00 11/08/17 08:59 Ceftriaxone Sodium 1 gm/ Dextrose 110 ml @ 220 mls/hr DAILY IVPB 10/08/17 09:00 10/15/17 08:59 10/10/17 08:48 Chlorhexidine Gluconate (Sofia-Hex 2%) 1 applic DAILY@2000 TOPIC 10/08/17 20:00 11/07/17 19:59 10/09/17 20:46 Dextrose (Dextrose 50%) 25 ml STAT PRN IV Hypoglycemia 10/07/17 15:15 11/06/17 15:14 Dextrose (Dextrose 50%) 50 ml STAT PRN IV Hypoglycemia 10/07/17 15:15 11/06/17 15:14 Folic Acid (Folate) 1 mg DAILY ORAL 10/09/17 09:00 11/08/17 08:59 10/10/17 08:47 Furosemide (Lasix) 40 mg DAILY ORAL 10/10/17 09:00 11/09/17 08:59 10/10/17 09:24 Heparin Sodium (Porcine) (Heparin 5000 units/ml) 5,000 units EVERY 12 HOURS SUBQ 10/09/17 00:00 11/08/17 00:00 10/10/17 08:59 Hydralazine HCl (Apresoline) 50 mg EVERY 8 HOURS ORAL 10/09/17 06:00 11/08/17 05:59 10/10/17 13:46 Hydromorphone HCl (Dilaudid) 0.5 mg Q3H PRN IVP Breakthrough Pain 10/07/17 15:15 10/14/17 15:14 Isosorbide Mononitrate (Imdur) 30 mg DAILY ORAL 10/10/17 09:00 11/09/17 08:59 10/10/17 08:47 Lorazepam (Ativan 2mg/ml 1ml) 0.5 mg Q4H PRN IV For Anxiety 10/07/17 15:15 10/14/17 15:14 Morphine Sulfate (Morphine Sulfate) 1 mg Q3H PRN IVP Severe Pain (Pain Scale 7-10) 10/07/17 15:15 10/14/17 15:14 10/08/17 06:58 Multivitamins (Multivitamins) 1 tab DAILY ORAL 10/09/17 09:00 11/08/17 08:59 10/10/17 08:47 Ondansetron HCl (Zofran) 4 mg Q6H PRN IVP Nausea & Vomiting 10/07/17 15:15 11/06/17 15:14 Thiamine HCl (Vitamin B1) 100 mg DAILY ORAL 10/09/17 09:00 11/08/17 08:59 10/10/17 08:47 Allergies: Coded Allergies: No Known Allergies (Unverified , 08/30/17) Objective Last Vital Signs Date Time Temp Pulse Resp B/P (MAP) Pulse Ox O2 Delivery O2 Flow Rate FiO2 10/10/17 15:57 98.2 122 20 112/65 (81) 97 98.2 10/10/17 09:00 Room Air 10/08/17 19:30 21 Laboratory Tests Test 10/09/17 21:00 10/10/17 04:00 Troponin I 0.470 ng/mL (0.000-0.056) Sodium Level 137 MMOL/L (136-145) Potassium Level 4.0 MMOL/L (3.5-5.1) Chloride Level 104 MMOL/L (98-107) Carbon Dioxide Level 26 MMOL/L (21-32) Anion Gap 8 mmol/L (5-15) Blood Urea Nitrogen 50 mg/dL (-18) H Creatinine 2.3 MG/DL (0.55-1.30) H Estimat Glomerular Filtration Rate mL/min (>60) Glucose Level 115 MG/DL (74-106) H Calcium Level 8.2 MG/DL (8.5-10.1) L Intake and Output 10/09/17 10/10/17 19:00 07:00 Intake Total 1020 ml Output Total 600 ml Balance 1020 ml -600 ml Intake Oral 800 ml IV Total 220 ml Output Urine Total 600 ml # Voids 6 Assessment/Plan Assessment/Plan Assessment/Plan Assessment/Plan Problem List: (1) Acute exacerbation of CHF (congestive heart failure) ICD Codes: I50.9 - Heart failure, unspecified SNOMED: 12724071 (2) Atrial fibrillation with RVR ICD Codes: I48.91 - Unspecified atrial fibrillation SNOMED: 083517807355831 (3) Leukopenia ICD Codes: D72.819 - Decreased white blood cell count, unspecified SNOMED: 15975972, 401847625 Qualifiers: Qualified Codes: D72.819 - Decreased white blood cell count, unspecified (4) UTI (urinary tract infection) ICD Codes: N39.0 - Urinary tract infection, site not specified SNOMED: 43904366 Qualifiers: Qualified Codes: N39.0 - Urinary tract infection, site not specified (5) Anemia ICD Codes: D64.9 - Anemia, unspecified SNOMED: 482432215 (6) Ascites ICD Codes: R18.8 - Other ascites SNOMED: 964130090 Qualifiers: Qualified Codes: K70.31 - Alcoholic cirrhosis of liver with ascites (7) Renal failure ICD Codes: N19 - Unspecified kidney failure SNOMED: 11369053 Qualifiers: Qualified Codes: N17.9 - Acute kidney failure, unspecified; N18.3 - Chronic kidney disease, stage 3 (moderate) (8) Hyperkalemia ICD Codes: E87.5 - Hyperkalemia SNOMED: 76358536 (9) Systolic and diastolic CHF, acute ICD Codes: I50.41 - Acute combined systolic (congestive) and diastolic ( congestive) heart failure SNOMED: 65687846, 930221029315328 (10) Hypoxia ICD Codes: R09.02 - Hypoxemia SNOMED: 107265879 Status: progressing Assessment/Plan - Cardiology consulted for A. fibb with RVR/acute CHF exacerbation - Heme/Onc consulted for leukopenia - Nephrology consulted for hyperkalemia/RAMONE - GI consulted for abdominal ascites/possible cirrhosis - Appreciate all telecommunications consultant rec's - s/p 1.3 L out with paracentesis with albumin 25% for hypotension - f/u albumin, culture and gram stain, cytology - check serial trops/EKG -- unremarkable - check ECHO. Last ECHO showing 15-20% EF in 08/2017. Repeat ECHO showing 10-15% EF - Coreg increased to 25mg BID and started on hydralazine 50mg q8hr per cards - Continue ceftriaxone. F/u urine cx - f/u abdominal ultrasound - monitor H/H - thiamine, folate, multivitamin - venous duplex BLE -- negative - replete lytes prn. Monitor BMP and Mg - hold xarelto for possible EgD - hold lisinopril and lasix for RAMONE - resume home meds including coreg DVT Prophylaxis: SCD, HSQ Code Status: Full Hospital Classification Declaration: Based on this initial evaluation, and depending on the patient's clinical course, I anticipate that this patient will require hospitalization for 3-5 days for Acute CHF exacerbation and ascites and close respiratory/hemodynamic monitoring. Disposition: Once the patient is stable to leave the hospital, I anticipate the patient will likely be discharged to the following environment: home with HH vs SNF I spent [] minutes on this patient's case, and [] minutes were dedicated to counseling and/or care coordination. Discussed with patient/family, nursing staff, SW/CM, all consultants as noted above regarding clinical status, treatment course, and disposition planning. Time of note may not reflect time of encounter. Subjective Subjective Date patient seen: Oct 08, 2017 Time patient seen: 23:00 Allergies: Coded Allergies: No Known Allergies (Unverified , 08/30/17) Subjective - doing better. no cp or sob today - BP low in systolic 90s. afebrile - ECHO with 10-15% EF Objective Objective Last 24 Hour Vital Signs Date Time Temp Pulse Resp B/P (MAP) Pulse Ox O2 Delivery O2 Flow Rate FiO2 10/08/17 22:00 99/63 10/08/17 21:00 123 99/63 10/08/17 20:00 99.0 123 24 99/63 (75) 95 99.0 10/08/17 20:00 126 10/08/17 16:00 97.7 84 20 104/68 (80) 96 97.7 10/08/17 16:00 160 10/08/17 14:00 93/62 10/08/17 12:00 120 10/08/17 12:00 98.4 106 19 93/62 (72) 93 98.4 10/08/17 09:57 97 18 Room Air 10/08/17 09:00 Room Air 10/08/17 08:25 121 89/54 10/08/17 08:00 98.6 121 20 89/54 (66) 94 98.6 10/08/17 08:00 124 10/08/17 06:00 101/62 10/08/17 04:00 98.0 80 20 101/62 (75) 97 98.0 10/08/17 04:00 102 10/08/17 00:00 105 10/08/17 00:00 97.7 22 22 99/53 (68) 96 97.7 83 Intake and Output 10/07/17 10/08/17 19:00 07:00 Intake Total 650 ml Balance 650 ml Intake Oral 0 ml IV Total 650 ml # Voids 2 Laboratory Tests 10/08/17 05:30: White Blood Count 4.5#L, Red Blood Count 3.19L, Hemoglobin 9.1L, Hematocrit 29.4L, Mean Corpuscular Volume 92, Mean Corpuscular Hemoglobin 28.4, Mean Corpuscular Hemoglobin Concent 30.8L, Red Cell Distribution Width 15.2H, Platelet Count 216, Mean Platelet Volume 6.9, Neutrophils (%) (Auto) 77.1H, Lymphocytes (%) (Auto) 9.8L, Monocytes (%) (Auto) 12.7H, Eosinophils (%) (Auto) 0.0, Basophils (%) (Auto) 0.5, Reticulocyte Count 0.7, Prothrombin Time 15.4H, Prothromb Time International Ratio 1.5H, Activated Partial Thromboplast Time 41H , Sodium Level 144, Potassium Level 4.4, Chloride Level 108H, Carbon Dioxide Level 28, Anion Gap 8, Blood Urea Nitrogen 41H, Creatinine 2.6H, Estimat Glomerular Filtration Rate , Glucose Level 69L, Hemoglobin A1c 5.7, Calcium Level 8.0L, Magnesium Level 2.1, Iron Level 6L, Total Iron Binding Capacity 202L , Percent Iron Saturation 3L, Unsaturated Iron Binding 196, Ferritin 158, Total Bilirubin 0.7, Aspartate Amino Transf (AST/SGOT) 11L, Alanine Aminotransferase ( ALT/SGPT) 25, Alkaline Phosphatase 34L, Troponin I 0.070H, Pro-B-Type Natriuretic Peptide 52713M, Total Protein 6.3L, Albumin 2.4L, Globulin 3.9, Albumin/Globulin Ratio 0.6L, Triglycerides Level 35, Cholesterol Level < 50, LDL Cholesterol 12, HDL Cholesterol 37L, Cholesterol/HDL Ratio 1.4L, Carcinoembryonic Antigen [Pending], Vitamin B12 Level 633, Folate 12.6, Thyroid Stimulating Hormone (TSH) 1.074, Hepatitis A IgM Antibody [Pending], Hepatitis B Surface Antigen [Pending], Hepatitis B Core IgM Antibody [Pending], Hepatitis C Antibody [Pending], HIV (1&2) Antibody Rapid Negative Height (Feet): 5 Height (Inches): 6.00 Weight (Pounds): 151 General Appearance: no apparent distress, alert EENT: PERRL/EOMI, normal ENT inspection Neck: non-tender, normal alignment, supple Cardiovascular: normal peripheral pulses, normal rate, regular rhythm Respiratory/Chest: chest wall non-tender, lungs clear, normal breath sounds Abdomen: normal bowel sounds, soft, tender Edema: moderate edema 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 Oct 10, 2017 17:11
[2017-10-10 18:01] LABS: HEMATOCRIT 27.1 % (42.0-52.0); HEMOGLOBIN 8.7 G/DL (14.2-18.0); MEAN CORPUSCULAR VOLUME 89 FL (80-99); PLATELET COUNT 188 K/UL (150-450); RED BLOOD COUNT 3.05 M/UL (4.70-6.10); RED CELL DISTRIBUTION WIDTH 14.8 % (11.6-14.8); WHITE BLOOD COUNT 8.4 K/UL (4.8-10.8)
[2017-10-10 18:02] LABS: BASOPHILS % (AUTO) 0.5 % (0.0-2.0); EOSINOPHILS % (AUTO) 0.3 % (0.0-3.0); LYMPHOCYTES % (AUTO) 5.3 % (20.0-45.0); MONOCYTES % (AUTO) 8.6 % (1.0-10.0); NEUTROPHILS % (AUTO) 85.4 % (45.0-75.0)
[2017-10-10 20:00] VITALS: BP 97/58
[2017-10-10] MEDS: Dyna-Hex 2% Top Sol 2oz TOPIC SCH (21:15)
--- NOTE | 2017-10-10 23:49 | Consultation ---
History of Present Illness General Date patient seen: Oct 10, 2017 Chief Complaint: Abdominal Pain Referring physician: KAROLINA FINE Reason for Consultation: CIRRHOSIS Present Illness HPI 81 y/o male with a PMH of alcohol-related cirrhosis, CKD, and A. fibb who [place] [facility] and abdominal pain for several days. the pt has cognitive impairment and is a poor historian . the pt is a chronica alcohol user the pt anxiety Allergies: Coded Allergies: No Known Allergies (Unverified , 08/30/17) Medication History Scheduled Carvedilol* (Carvedilol*), 25 MG ORAL EVERY 12 HOURS, (Reported) Furosemide* (Lasix*), 80 MG ORAL DAILY, (Reported) Hydralazine Hcl* (Hydralazine Hcl*), 50 MG ORAL EVERY 8 HOURS, (Reported) Lisinopril (Lisinopril*), 5 MG ORAL DAILY, (Reported) Rivaroxaban (Xarelto*), 15 MG ORAL HS, (Reported) Miscellaneous Medications Unable to Obtain Medications (Unable To Obtain Meds), (Reported) Patient History History Provided By: Patient Healthcare decision maker Resuscitation status Full Code Advanced Directive on File Review of Systems Psychiatric: Reports: prior hx, anxiety, depressed feelings, emotional problems Physical Exam General Appearance: no apparent distress, alert Neurologic: depressed affect Last 24 Hour Vital Signs Date Time Temp Pulse Resp B/P (MAP) Pulse Ox O2 Delivery O2 Flow Rate FiO2 10/10/17 22:00 97/58 10/10/17 21:00 Room Air 10/10/17 21:00 94 97/58 10/10/17 20:40 114 10/10/17 20:00 97.9 94 18 97/58 (71) 97 97.9 10/10/17 20:00 98 18 Room Air 21 10/10/17 16:00 148 10/10/17 15:57 98.2 122 20 112/65 (81) 97 98.2 10/10/17 13:46 113/69 10/10/17 12:00 85 10/10/17 11:55 98.0 101 20 102/64 (77) 98 98.0 10/10/17 09:00 98 105/70 10/10/17 09:00 Room Air 10/10/17 08:47 105/70 10/10/17 08:00 97.7 98 20 105/70 (82) 98 97.7 10/10/17 08:00 119 10/10/17 07:00 100 20 Room Air 21 10/10/17 05:48 97/61 10/10/17 04:00 98.7 100 20 97/61 (73) 97 98.7 10/10/17 04:00 148 10/10/17 00:00 104 10/10/17 00:00 98.0 115 21 100/63 (75) 96 98.0 Intake and Output 10/09/17 10/10/17 19:00 07:00 Intake Total 1020 ml Output Total 600 ml Balance 1020 ml -600 ml Intake Oral 800 ml IV Total 220 ml Output Urine Total 600 ml # Voids 6 Laboratory Tests Test 10/10/17 04:00 10/10/17 16:50 10/10/17 17:50 Sodium Level 137 MMOL/L (136-145) Potassium Level 4.0 MMOL/L (3.5-5.1) Chloride Level 104 MMOL/L (98-107) Carbon Dioxide Level 26 MMOL/L (21-32) Anion Gap 8 mmol/L (5-15) Blood Urea Nitrogen 50 mg/dL (7-18) H Creatinine 2.3 MG/DL (0.55-1.30) H Estimat Glomerular Filtration Rate mL/min (>60) Glucose Level 115 MG/DL (74-106) H Calcium Level 8.2 MG/DL (8.5-10.1) L Stool Occult Blood Pending White Blood Count 8.4 K/UL (4.8-10.8) Red Blood Count 3.05 M/UL (4.70-6.10) L Hemoglobin 8.7 G/DL (14.2-18.0) L Hematocrit 27.1 % (42.0-52.0) L Mean Corpuscular Volume 89 FL (80-99) Mean Corpuscular Hemoglobin 28.6 PG (27.0-31.0) Mean Corpuscular Hemoglobin Concent 32.1 G/DL (32.0-36.0) Red Cell Distribution Width 14.8 % (11.6-14.8) Platelet Count 188 K/UL (150-450) Mean Platelet Volume 7.4 FL (6.5-10.1) Neutrophils (%) (Auto) 85.4 % (45.0-75.0) H Lymphocytes (%) (Auto) 5.3 % (20.0-45.0) L Monocytes (%) (Auto) 8.6 % (1.0-10.0) Eosinophils (%) (Auto) 0.3 % (0.0-3.0) Basophils (%) (Auto) 0.5 % (0.0-2.0) Height (Feet): 5 Height (Inches): 6.00 Weight (Pounds): 155 Medications Current Medications Medications (Trade) Dose Ordered Sig/Saul Route PRN Reason Start Time Stop Time Status Last Admin Dose Admin Albuterol/ Ipratropium (Albuterol/ Ipratropium) 3 ml Q4H PRN HHN Shortness of Breath 10/07/17 15:15 10/12/17 15:14 Carvedilol (Coreg) 25 mg EVERY 12 HOURS ORAL 10/09/17 09:00 11/08/17 08:59 Ceftriaxone Sodium 1 gm/ Dextrose 110 ml @ 220 mls/hr DAILY IVPB 10/08/17 09:00 10/15/17 08:59 10/10/17 08:48 Chlorhexidine Gluconate (Sofia-Hex 2%) 1 applic DAILY@2000 TOPIC 10/08/17 20:00 11/07/17 19:59 10/10/17 21:15 Dextrose (Dextrose 50%) 25 ml STAT PRN IV Hypoglycemia 10/07/17 15:15 11/06/17 15:14 Dextrose (Dextrose 50%) 50 ml STAT PRN IV Hypoglycemia 10/07/17 15:15 11/06/17 15:14 Folic Acid (Folate) 1 mg DAILY ORAL 10/09/17 09:00 11/08/17 08:59 10/10/17 08:47 Furosemide (Lasix) 40 mg DAILY ORAL 10/10/17 09:00 11/09/17 08:59 10/10/17 09:24 Heparin Sodium (Porcine) (Heparin 5000 units/ml) 5,000 units EVERY 12 HOURS SUBQ 10/09/17 00:00 11/08/17 00:00 10/10/17 08:59 Hydralazine HCl (Apresoline) 50 mg EVERY 8 HOURS ORAL 10/09/17 06:00 11/08/17 05:59 10/10/17 13:46 Hydromorphone HCl (Dilaudid) 0.5 mg Q3H PRN IVP Breakthrough Pain 10/07/17 15:15 10/14/17 15:14 Isosorbide Mononitrate (Imdur) 30 mg DAILY ORAL 10/10/17 09:00 11/09/17 08:59 10/10/17 08:47 Lorazepam (Ativan 2mg/ml 1ml) 0.5 mg Q4H PRN IV For Anxiety 10/07/17 15:15 10/14/17 15:14 Morphine Sulfate (Morphine Sulfate) 1 mg Q3H PRN IVP Severe Pain (Pain Scale 7-10) 10/07/17 15:15 10/14/17 15:14 10/08/17 06:58 Multivitamins (Multivitamins) 1 tab DAILY ORAL 10/09/17 09:00 11/08/17 08:59 10/10/17 08:47 Ondansetron HCl (Zofran) 4 mg Q6H PRN IVP Nausea & Vomiting 10/07/17 15:15 11/06/17 15:14 Thiamine HCl (Vitamin B1) 100 mg DAILY ORAL 10/09/17 09:00 11/08/17 08:59 10/10/17 08:47 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
[2017-10-11] VITALS: BP 100/66
[2017-10-11 04:00] VITALS: BP 98/57
[2017-10-11] MEDS: HydrALAZINE 50mg tab ORAL SCH ×3 (06:00→22:00)
[2017-10-11 08:00] VITALS: BP 102/67
--- NOTE | 2017-10-11 08:22 | Nephrology Progress Note ---
Assessment/Plan Assessment/Plan 1. CKD 4- Cr 2.3 - Cr stable, cardiorenal in nature. EF 15% - On lasix and Coreg. AM labs pending 2. Severe Pulm HTN/Left Vent Dfx - per cardiology mgmt. Hold LIANNE-I and ARB due to hyperk+ 3. Hyperkalemia- resolved 4. CHF/ Cardiac Cirrhosis- alcohol induced - Hold off aldactone/LIANNE-I and ARB due to hyperk+ 5. Septated Renal cyst- repeat Renal US in 6 months Subjective Date patient seen: Oct 11, 2017 Time patient seen: 08:19 ROS Limited/Unobtainable: No Allergies: Coded Allergies: No Known Allergies (Unverified , 08/30/17) Subjective Patient feeling better. resting well Objective Last 24 Hour Vital Signs Date Time Temp Pulse Resp B/P (MAP) Pulse Ox O2 Delivery O2 Flow Rate FiO2 10/11/17 06:00 98/57 10/11/17 04:00 109 10/11/17 04:00 97.8 100 22 98/57 (71) 97 97.8 10/11/17 00:00 97.4 101 21 100/66 (77) 97 97.4 10/11/17 00:00 127 10/10/17 22:00 97/58 10/10/17 21:00 Room Air 10/10/17 21:00 94 97/58 10/10/17 20:40 114 10/10/17 20:00 97.9 94 18 97/58 (71) 97 97.9 10/10/17 20:00 98 18 Room Air 21 10/10/17 16:00 148 10/10/17 15:57 98.2 122 20 112/65 (81) 97 98.2 10/10/17 13:46 113/69 10/10/17 12:00 85 10/10/17 11:55 98.0 101 20 102/64 (77) 98 98.0 10/10/17 09:00 98 105/70 10/10/17 09:00 Room Air 10/10/17 08:47 105/70 Intake and Output 10/10/17 10/11/17 19:00 07:00 Intake Total 110 ml Output Total 700 ml Balance 110 ml -700 ml IV Total 110 ml Output Urine Total 700 ml # Bowel Movements 2 1 Laboratory Tests 10/10/17 16:50: Stool Occult Blood [Pending] 10/10/17 17:50: White Blood Count 8.4, Red Blood Count 3.05L, Hemoglobin 8.7L, Hematocrit 27.1L , Mean Corpuscular Volume 89, Mean Corpuscular Hemoglobin 28.6, Mean Corpuscular Hemoglobin Concent 32.1, Red Cell Distribution Width 14.8, Platelet Count 188, Mean Platelet Volume 7.4, Neutrophils (%) (Auto) 85.4H, Lymphocytes ( %) (Auto) 5.3L, Monocytes (%) (Auto) 8.6, Eosinophils (%) (Auto) 0.3, Basophils (%) (Auto) 0.5 Height (Feet): 5 Height (Inches): 6.00 Weight (Pounds): 153 General Appearance: WD/WN, no apparent distress EENT: PERRL/EOMI Neck: non-tender, normal alignment Cardiovascular: normal peripheral pulses, normal rate Respiratory/Chest: chest wall non-tender, lungs clear Abdomen: normal bowel sounds, non tender Edema: 1+ Arm (L), 1+ Arm (R), 1+ Leg (L), 1+ Leg (R), 1+ Pedal (L), 1+ Pedal ( R), 1+ Generalized Mehdi Lewis M.D. Oct 11, 2017 08:22
[2017-10-11] MEDS: Carvedilol 25mg Tab ORAL SCH ×2 (09:00→21:00)
[2017-10-11] MEDS: Imdur 30mg tab ORAL SCH (09:00)
[2017-10-11] MEDS: cefTRIAXone 1 GM in D5W 110 ML IVPB SCH (09:10)
[2017-10-11] MEDS: Thiamine 100mg tab ORAL SCH (09:10)
[2017-10-11] MEDS: Furosemide 40mg tab ORAL SCH (09:11)
[2017-10-11 09:14] LABS: ANION GAP 10 mmol/L (5-15); BLOOD UREA NITROGEN 39 mg/dL (7-18); CALCIUM 7.9 MG/DL (8.5-10.1); CARBON DIOXIDE 25 MMOL/L (21-32); CHLORIDE 104 MMOL/L (98-107); CREATININE 1.9 MG/DL (0.55-1.30); POTASSIUM 3.3 MMOL/L (3.5-5.1); SODIUM 139 MMOL/L (136-145)
[2017-10-11] MEDS: Heparin 5000 units/ml inj SUBQ SCH ×2 (09:18→23:16)
--- NOTE | 2017-10-11 11:14 | GI Progress Note ---
Assessment/Plan Problems: (1) Ascites ICD Codes: R18.8 - Other ascites SNOMED: 195453537 Qualifiers: Qualified Codes: K70.31 - Alcoholic cirrhosis of liver with ascites (2) Cirrhosis ICD Codes: K74.60 - Unspecified cirrhosis of liver SNOMED: 15202043 (3) Anemia ICD Codes: D64.9 - Anemia, unspecified SNOMED: 014218096 (4) Iron deficiency ICD Codes: E61.1 - Iron deficiency SNOMED: 05356172 Status: stable Status Narrative Discussed with Dr. Choudhary. Assessment/Plan s/p paracentesis yielding 13.6L of fluid >> r/o SBP anemia work up reviewed >> iron deficiency abdominal U/S reviewed OB stool negative hepatitis panel negative hold GI procedures at this time, can be done as outpatient monitor H&H, prn transfusions bowel regime venofer ppi fu labs dc planning The patient was seen and examined at bedside and all new and available data was reviewed in the patients chart. I agree with the above findings, impression and plan. (Patient seen earlier today. Signature stamp does not reflect patient encounter time.). - Robin Choudhary MD Subjective Subjective feels better generally abdominal distention improved has no history of EGD Objective Last 24 Hour Vital Signs Date Time Temp Pulse Resp B/P (MAP) Pulse Ox O2 Delivery O2 Flow Rate FiO2 10/11/17 09:00 102/67 10/11/17 09:00 107 102/67 10/11/17 08:00 98.1 107 20 102/67 (79) 93 98.1 10/11/17 06:00 98/57 10/11/17 04:00 109 10/11/17 04:00 97.8 100 22 98/57 (71) 97 97.8 10/11/17 00:00 97.4 101 21 100/66 (77) 97 97.4 10/11/17 00:00 127 10/10/17 22:00 97/58 10/10/17 21:00 Room Air 10/10/17 21:00 94 97/58 10/10/17 20:40 114 10/10/17 20:00 97.9 94 18 97/58 (71) 97 97.9 10/10/17 20:00 98 18 Room Air 21 10/10/17 16:00 148 10/10/17 15:57 98.2 122 20 112/65 (81) 97 98.2 10/10/17 13:46 113/69 10/10/17 12:00 85 10/10/17 11:55 98.0 101 20 102/64 (77) 98 98.0 Intake and Output 10/10/17 10/11/17 19:00 07:00 Intake Total 110 ml Output Total 700 ml Balance 110 ml -700 ml IV Total 110 ml Output Urine Total 700 ml # Bowel Movements 2 1 Laboratory Tests Test 10/10/17 16:50 10/10/17 17:50 10/11/17 06:20 Stool Occult Blood Negative (NEGATIVE) White Blood Count 8.4 K/UL (4.8-10.8) Red Blood Count 3.05 M/UL (4.70-6.10) L Hemoglobin 8.7 G/DL (14.2-18.0) L Hematocrit 27.1 % (42.0-52.0) L Mean Corpuscular Volume 89 FL (80-99) Mean Corpuscular Hemoglobin 28.6 PG (27.0-31.0) Mean Corpuscular Hemoglobin Concent 32.1 G/DL (32.0-36.0) Red Cell Distribution Width 14.8 % (11.6-14.8) Platelet Count 188 K/UL (150-450) Mean Platelet Volume 7.4 FL (6.5-10.1) Neutrophils (%) (Auto) 85.4 % (45.0-75.0) H Lymphocytes (%) (Auto) 5.3 % (20.0-45.0) L Monocytes (%) (Auto) 8.6 % (1.0-10.0) Eosinophils (%) (Auto) 0.3 % (0.0-3.0) Basophils (%) (Auto) 0.5 % (0.0-2.0) Sodium Level 139 MMOL/L (136-145) Potassium Level 3.3 MMOL/L (3.5-5.1) L Chloride Level 104 MMOL/L (98-107) Carbon Dioxide Level 25 MMOL/L (21-32) Anion Gap 10 mmol/L (5-15) Blood Urea Nitrogen 39 mg/dL (7-18) H Creatinine 1.9 MG/DL (0.55-1.30) H Estimat Glomerular Filtration Rate mL/min (>60) Glucose Level 118 MG/DL (74-106) H Calcium Level 7.9 MG/DL (8.5-10.1) L Height (Feet): 5 Height (Inches): 6.00 Weight (Pounds): 153 General Appearance: WD/WN, no apparent distress, alert Cardiovascular: normal rate Respiratory/Chest: normal breath sounds, no respiratory distress Abdominal Exam: normal bowel sounds, non tender, soft Extremities: non-tender Chepe Wolf INSPECTOR AIDE Oct 11, 2017 11:14
[2017-10-11 12:00] VITALS: BP 112/66
--- NOTE | 2017-10-11 12:21 | General Progress Note ---
Assessment/Plan Status: stable Assessment/Plan 1. Leukopenia, severe. Likely leukopenia secondary to splenomegaly. --> Hepatitis and human immunodeficiency virus are both negative. --> Ultrasound of the abdomen shows nodular contour of the liver. --> Tumor markers pending --> WBC improving. 2. Anemia due to underlying chronic disease, appears to be stable. --> Anemia w/u has been reviewed, will trend daily. --> Hgb goal >7 3. Coagulopathy, likely related to underlying cirrhosis of the liver. 4. Hyperkalemia, given Kayexalate, currently improved. 5. Biventricular failure with severe pulmonary hypertension. The patient is seen by Cardiology. 6. Ascites, status post paracentesis. The time the note was entered does not necessarily correspond to the time the patient was seen. Subjective Date patient seen: Oct 11, 2017 Hematologic/Lymphatic: Reports: anemia Allergies: Coded Allergies: No Known Allergies (Unverified , 08/30/17) All Systems: reviewed and negative except above Subjective No acute events. Pt reports feeling better. Pt cooperative with care. Objective Last 24 Hour Vital Signs Date Time Temp Pulse Resp B/P (MAP) Pulse Ox O2 Delivery O2 Flow Rate FiO2 10/11/17 09:00 102/67 10/11/17 09:00 107 102/67 10/11/17 09:00 Room Air 10/11/17 08:00 98.1 107 20 102/67 (79) 93 98.1 10/11/17 06:00 98/57 10/11/17 04:00 109 10/11/17 04:00 97.8 100 22 98/57 (71) 97 97.8 10/11/17 00:00 97.4 101 21 100/66 (77) 97 97.4 10/11/17 00:00 127 10/10/17 22:00 97/58 10/10/17 21:00 Room Air 10/10/17 21:00 94 97/58 10/10/17 20:40 114 10/10/17 20:00 97.9 94 18 97/58 (71) 97 97.9 10/10/17 20:00 98 18 Room Air 21 10/10/17 16:00 148 10/10/17 15:57 98.2 122 20 112/65 (81) 97 98.2 10/10/17 13:46 113/69 Intake and Output 10/10/17 10/11/17 19:00 07:00 Intake Total 110 ml Output Total 700 ml Balance 110 ml -700 ml IV Total 110 ml Output Urine Total 700 ml # Bowel Movements 2 1 Laboratory Tests 10/10/17 16:50: Stool Occult Blood Negative 10/10/17 17:50: White Blood Count 8.4, Red Blood Count 3.05L, Hemoglobin 8.7L, Hematocrit 27.1L , Mean Corpuscular Volume 89, Mean Corpuscular Hemoglobin 28.6, Mean Corpuscular Hemoglobin Concent 32.1, Red Cell Distribution Width 14.8, Platelet Count 188, Mean Platelet Volume 7.4, Neutrophils (%) (Auto) 85.4H, Lymphocytes ( %) (Auto) 5.3L, Monocytes (%) (Auto) 8.6, Eosinophils (%) (Auto) 0.3, Basophils (%) (Auto) 0.5 10/11/17 06:20: Sodium Level 139, Potassium Level 3.3L, Chloride Level 104, Carbon Dioxide Level 25, Anion Gap 10, Blood Urea Nitrogen 39H, Creatinine 1.9H, Estimat Glomerular Filtration Rate , Glucose Level 118H, Calcium Level 7.9L Height (Feet): 5 Height (Inches): 6.00 Weight (Pounds): 153 General Appearance: no apparent distress EENT: PERRL/EOMI Neck: normal alignment Cardiovascular: tachycardia Respiratory/Chest: no respiratory distress Abdomen: soft, no organomegaly Christiano Hoffmann MD Oct 11, 2017 12:21
[2017-10-11 16:00] VITALS: BP 106/66
--- NOTE | 2017-10-11 16:08 | General Progress Note ---
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 -folate -thiamine -valium prn Subjective Date patient seen: Oct 11, 2017 Neurologic/Psychiatric: Reports: anxiety, depressed, emotional problems Allergies: Coded Allergies: No Known Allergies (Unverified , 08/30/17) Objective Last 24 Hour Vital Signs Date Time Temp Pulse Resp B/P (MAP) Pulse Ox O2 Delivery O2 Flow Rate FiO2 10/11/17 15:18 112/66 10/11/17 12:00 98.3 104 18 112/66 (81) 99 98.3 10/11/17 11:50 93 10/11/17 10:11 92 20 Room Air 21 10/11/17 09:00 102/67 10/11/17 09:00 107 102/67 10/11/17 09:00 Room Air 10/11/17 08:00 98.1 107 20 102/67 (79) 93 98.1 10/11/17 07:50 106 10/11/17 06:00 98/57 10/11/17 04:00 109 10/11/17 04:00 97.8 100 22 98/57 (71) 97 97.8 10/11/17 00:00 97.4 101 21 100/66 (77) 97 97.4 10/11/17 00:00 127 10/10/17 22:00 97/58 10/10/17 21:00 Room Air 10/10/17 21:00 94 97/58 10/10/17 20:40 114 10/10/17 20:00 97.9 94 18 97/58 (71) 97 97.9 10/10/17 20:00 98 18 Room Air 21 Intake and Output 10/10/17 10/11/17 19:00 07:00 Intake Total 110 ml Output Total 700 ml Balance 110 ml -700 ml IV Total 110 ml Output Urine Total 700 ml # Bowel Movements 2 1 Laboratory Tests 10/10/17 16:50: Stool Occult Blood Negative 10/10/17 17:50: White Blood Count 8.4, Red Blood Count 3.05L, Hemoglobin 8.7L, Hematocrit 27.1L , Mean Corpuscular Volume 89, Mean Corpuscular Hemoglobin 28.6, Mean Corpuscular Hemoglobin Concent 32.1, Red Cell Distribution Width 14.8, Platelet Count 188, Mean Platelet Volume 7.4, Neutrophils (%) (Auto) 85.4H, Lymphocytes ( %) (Auto) 5.3L, Monocytes (%) (Auto) 8.6, Eosinophils (%) (Auto) 0.3, Basophils (%) (Auto) 0.5 10/11/17 06:20: Sodium Level 139, Potassium Level 3.3L, Chloride Level 104, Carbon Dioxide Level 25, Anion Gap 10, Blood Urea Nitrogen 39H, Creatinine 1.9H, Estimat Glomerular Filtration Rate , Glucose Level 118H, Calcium Level 7.9L Height (Feet): 5 Height (Inches): 6.00 Weight (Pounds): 153 General Appearance: no apparent distress, alert, agitated Ziyad Ledezma MD Oct 11, 2017 16:08
--- NOTE | 2017-10-11 18:29 | Cardiology Progress Note ---
Assessment/Plan Status: stable Assessment/Plan Assessment/Plan Problem List: (1) Acute systolic exacerbation of CHF (congestive heart failure) (2) Atrial fibrillation with RVR (3) Leukopenia (4) UTI (urinary tract infection) (5) Anemia (6) Ascites (7) Renal failure (8) Hyperkalemia s/p paracentesis with 13 liter fluid removed Echo reviewed with acholic induced heart failure and valvular heart disease - functional MR No cath indicated due to lack of symptoms and objective findings of ACS and poor renal function with risk of contrast nephrology Continue heart failure medications: Coreg max dose, hydralazine/imdur, can not use aldactone/entrestor/losatan due to renal function - renal function improving, start aldactone now that creatinine is <2, if creatinine goes below 1.5 then start losartan for afterload reduction Aspirin Atorvastatin IV albumin bolus for hypotension Continue lasix due to elevated filling pressures Would recommend transfer to [facility] for mitraclip evaluation with Dr. Faisal Jackson for severe MR Subjective Cardiovascular: Reports: no symptoms Respiratory: Reports: no symptoms Gastrointestinal/Abdominal: Reports: no symptoms Subjective NO acute events, no CP/SOB, abdominal distension improved. No complaints SBP 90s, tolerating medications Objective Last 24 Hour Vital Signs Date Time Temp Pulse Resp B/P (MAP) Pulse Ox O2 Delivery O2 Flow Rate FiO2 10/11/17 16:00 98.3 102 20 106/66 (79) 100 98.3 10/11/17 15:45 119 10/11/17 15:18 112/66 10/11/17 12:00 98.3 104 18 112/66 (81) 99 98.3 10/11/17 11:50 93 10/11/17 10:11 92 20 Room Air 21 10/11/17 09:00 102/67 10/11/17 09:00 107 102/67 10/11/17 09:00 Room Air 10/11/17 08:00 98.1 107 20 102/67 (79) 93 98.1 10/11/17 07:50 106 10/11/17 06:00 98/57 10/11/17 04:00 109 10/11/17 04:00 97.8 100 22 98/57 (71) 97 97.8 10/11/17 00:00 97.4 101 21 100/66 (77) 97 97.4 10/11/17 00:00 127 10/10/17 22:00 97/58 10/10/17 21:00 Room Air 10/10/17 21:00 94 97/58 10/10/17 20:40 114 10/10/17 20:00 97.9 94 18 97/58 (71) 97 97.9 10/10/17 20:00 98 18 Room Air 21 General Appearance: no apparent distress EENT: PERRL/EOMI Neck: non-tender Rhythm: NSR Cardiovascular: normal peripheral pulses Respiratory/Chest: chest wall non-tender Abdomen: normal bowel sounds Extremities: normal range of motion 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 Oct 11, 2017 18:28
[2017-10-11 20:00] VITALS: BP 106/52
[2017-10-11] MEDS: Dyna-Hex 2% Top Sol 2oz TOPIC SCH (20:00)
[2017-10-11] MEDS: Amiodarone 200mg tab ORAL SCH (21:00)
--- NOTE | 2017-10-11 21:12 | General Progress Note ---
Assessment/Plan Problem List: (1) Acute exacerbation of CHF (congestive heart failure) ICD Codes: I50.9 - Heart failure, unspecified SNOMED: 47253423 (2) Atrial fibrillation with RVR ICD Codes: I48.91 - Unspecified atrial fibrillation SNOMED: 870319776448717 (3) Leukopenia ICD Codes: D72.819 - Decreased white blood cell count, unspecified SNOMED: 69616023, 890445956 Qualifiers: Qualified Codes: D72.819 - Decreased white blood cell count, unspecified (4) UTI (urinary tract infection) ICD Codes: N39.0 - Urinary tract infection, site not specified SNOMED: 02770530 Qualifiers: Qualified Codes: N39.0 - Urinary tract infection, site not specified (5) Anemia ICD Codes: D64.9 - Anemia, unspecified SNOMED: 310207697 (6) Ascites ICD Codes: R18.8 - Other ascites SNOMED: 158169774 Qualifiers: Qualified Codes: K70.31 - Alcoholic cirrhosis of liver with ascites (7) Renal failure ICD Codes: N19 - Unspecified kidney failure SNOMED: 30638983 Qualifiers: Qualified Codes: N17.9 - Acute kidney failure, unspecified; N18.3 - Chronic kidney disease, stage 3 (moderate) (8) Hyperkalemia ICD Codes: E87.5 - Hyperkalemia SNOMED: 96512367 (9) Systolic and diastolic CHF, acute ICD Codes: I50.41 - Acute combined systolic (congestive) and diastolic ( congestive) heart failure SNOMED: 55759388, 538579111340426 (10) Hypoxia ICD Codes: R09.02 - Hypoxemia SNOMED: 732527885 (11) Coagulopathy ICD Codes: D68.9 - Coagulation defect, unspecified SNOMED: 95410461 (12) Severe mitral regurgitation ICD Codes: I34.0 - Nonrheumatic mitral (valve) insufficiency SNOMED: 87926065 (13) 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 hypertension ICD Codes: I27.20 - Pulmonary hypertension, unspecified SNOMED: 36661168 (14) Renal cyst ICD Codes: N28.1 - Cyst of kidney, acquired SNOMED: 530785767 (15) CKD (chronic kidney disease) ICD Codes: N18.9 - Chronic kidney disease, unspecified SNOMED: 215590091 (16) Cirrhosis ICD Codes: K74.60 - Unspecified cirrhosis of liver SNOMED: 75771983 Status: stable, progressing Assessment/Plan - Cardiology consulted for A. fibb with RVR/acute CHF exacerbation - Heme/Onc consulted for leukopenia - Nephrology consulted for hyperkalemia/RAMONE - GI consulted for abdominal ascites/possible cirrhosis - Appreciate all underwriting consultant rec's - s/p 13.6 L out with paracentesis with IV albumin 25% for hypotension on 10/07 - f/u albumin, culture and gram stain, cytology --> ascitic fluid culture showing Klebsiella pneumoniae. Continue IV ceftriaxone - check serial trops/EKG -- unremarkable - check ECHO. Last ECHO showing 15-20% EF in 08/2017. Repeat ECHO showing 10-15% EF, severe pulmonary HTN, and severe MR - Coreg increased to 25mg BID and started on hydralazine 50mg q8hr per cards - f/u abdominal ultrasound -- nodularity in liver consistent with cirrhosis - f/u hepatitis panel, HIV -- negative - f/u tumor markers - f/u anemia workup, stool OB - monitor H/H - No EgD while inpatient, recommended as outpatient - septated renal cyst seen on abd u/s -- f/u repeat U/S in 6 months - Trend Cr - continue diuresis with IV lasix for cardiorenal syndrome - thiamine, folate, multivitamin - venous duplex BLE -- negative - replete lytes prn. Monitor BMP and Mg - hold xarelto for possible EgD - hold lisinopril given RAMONE - resume home meds including coreg PATIENT WILL NEED TRANSFER TO [facility] IF AGREEABLE FOR MITRACLIP EVAL IF PATIENT AGREEABLE AND STABLE FOR TRANSFER DVT Prophylaxis: SCD, HSQ Code Status: Full Hospital Classification Declaration: Based on this initial evaluation, and depending on the patient's clinical course, I anticipate that this patient will require hospitalization for 3-5 days for Acute CHF exacerbation and ascites and close respiratory/hemodynamic monitoring. Disposition: Once the patient is stable to leave the hospital, I anticipate the patient will likely be discharged to the following environment: home with vs SNF I spent 33 minutes on this patient's case, and 19 minutes were dedicated to counseling and/or care coordination. Discussed with patient/family, nursing staff, SW/CM, all consultants as noted above regarding clinical status, treatment course, and disposition planning. Time of note may not reflect time of encounter. Subjective Date patient seen: Oct 11, 2017 Allergies: Coded Allergies: No Known Allergies (Unverified , 08/30/17) Subjective - weekend events noted - AF, HDS - continues to report generalized abdominal pain - ascitic fluid showing Klebsiella pneumoniae, on ceftriaxone - patient states that he would like to think about the mitraclip procedure for now Objective Last 24 Hour Vital Signs Date Time Temp Pulse Resp B/P (MAP) Pulse Ox O2 Delivery O2 Flow Rate FiO2 10/11/17 20:15 84 20 Room Air 21 10/11/17 20:00 97.6 86 20 106/52 (70) 100 97.6 10/11/17 16:00 98.3 102 20 106/66 (79) 100 98.3 10/11/17 15:45 119 10/11/17 15:18 112/66 10/11/17 12:00 98.3 104 18 112/66 (81) 99 98.3 10/11/17 11:50 93 10/11/17 10:11 92 20 Room Air 21 10/11/17 09:00 102/67 10/11/17 09:00 107 102/67 10/11/17 09:00 Room Air 10/11/17 08:00 98.1 107 20 102/67 (79) 93 98.1 10/11/17 07:50 106 10/11/17 06:00 98/57 10/11/17 04:00 109 10/11/17 04:00 97.8 100 22 98/57 (71) 97 97.8 10/11/17 00:00 97.4 101 21 100/66 (77) 97 97.4 10/11/17 00:00 127 10/10/17 22:00 97/58 Intake and Output 10/10/17 10/11/17 19:00 07:00 Intake Total 110 ml Output Total 700 ml Balance 110 ml -700 ml IV Total 110 ml Output Urine Total 700 ml # Bowel Movements 2 1 Laboratory Tests 10/11/17 06:20: Sodium Level 139, Potassium Level 3.3L, Chloride Level 104, Carbon Dioxide Level 25, Anion Gap 10, Blood Urea Nitrogen 39H, Creatinine 1.9H, Estimat Glomerular Filtration Rate , Glucose Level 118H, Calcium Level 7.9L Height (Feet): 5 Height (Inches): 6.00 Weight (Pounds): 153 General Appearance: alert, mild distress EENT: PERRL/EOMI, normal ENT inspection Neck: non-tender, normal alignment, supple Cardiovascular: normal peripheral pulses, regularly irregular Respiratory/Chest: chest wall non-tender, lungs clear, normal breath sounds Abdomen: normal bowel sounds, soft, tender Extremities: non-tender Edema: moderate edema 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
[2017-10-12] VITALS (7 sets, daily range): BP systolic 98–143; BP diastolic 52–72
[2017-10-12] MEDS: HydrALAZINE 50mg tab ORAL SCH ×3 (06:00→22:00)
--- NOTE | 2017-10-12 08:31 | Nephrology Progress Note ---
Assessment/Plan Assessment/Plan 1. CKD 4- Cr 1.9 - Cardiorenal - On lasix and Coreg. AM labs pending 2. Severe Pulm HTN/Left Vent Dfx - per cardiology mgmt. Hold LIANNE-I and ARB due to hyperk+ 3. Hyperkalemia- resolved stable 4. CHF/ Cardiac Cirrhosis- alcohol induced - Hold off aldactone/LIANNE-I and ARB due to hyperk+ - when restarted, would monitor K+ carefully 5. Septated Renal cyst- repeat Renal US in 6 months Subjective Date patient seen: Oct 12, 2017 Time patient seen: 08:27 ROS Limited/Unobtainable: Yes Allergies: Coded Allergies: No Known Allergies (Unverified , 08/30/17) Subjective Patient feeling better. Stable and not SOB Objective Last 24 Hour Vital Signs Date Time Temp Pulse Resp B/P (MAP) Pulse Ox O2 Delivery O2 Flow Rate FiO2 10/12/17 08:00 97.5 101 20 143/67 (92) 99 97.5 10/12/17 06:00 100/68 10/12/17 04:00 98.5 86 20 100/52 (68) 100 98.5 10/12/17 04:00 102 10/12/17 00:00 101 10/12/17 00:00 98.5 102 18 98/67 (77) 95 98.5 10/11/17 22:00 98/61 10/11/17 21:00 Room Air 10/11/17 21:00 102 98/61 10/11/17 20:15 84 20 Room Air 21 10/11/17 20:00 105 10/11/17 20:00 97.6 86 20 106/52 (70) 100 97.6 10/11/17 16:00 98.3 102 20 106/66 (79) 100 98.3 10/11/17 15:45 119 10/11/17 15:18 112/66 10/11/17 12:00 98.3 104 18 112/66 (81) 99 98.3 10/11/17 11:50 93 10/11/17 10:11 92 20 Room Air 21 10/11/17 09:00 102/67 10/11/17 09:00 107 102/67 10/11/17 09:00 Room Air Intake and Output 10/11/17 10/12/17 19:00 07:00 Intake Total 360 ml Output Total 600 ml Balance -240 ml Intake Oral 360 ml Output Urine Total 600 ml # Voids 2 # Bowel Movements 3 1 Height (Feet): 5 Height (Inches): 6.00 Weight (Pounds): 166 General Appearance: WD/WN, no apparent distress EENT: PERRL/EOMI Neck: non-tender, normal alignment, supple Cardiovascular: normal peripheral pulses, normal rate Respiratory/Chest: chest wall non-tender, lungs clear Abdomen: normal bowel sounds, non tender Edema: no edema noted Arm (L), no edema noted Arm (R), no edema noted Leg (L), no edema noted Leg (R), no edema noted Pedal (L), no edema noted Pedal (R), no edema noted Generalized Mehdi Lewis M.D. Oct 12, 2017 08:31
[2017-10-12] MEDS: Heparin 5000 units/ml inj SUBQ SCH ×2 (09:00→21:26)
[2017-10-12] MEDS: Imdur 30mg tab ORAL SCH (09:23)
[2017-10-12] MEDS: Carvedilol 25mg Tab ORAL SCH ×2 (09:23→21:25)
[2017-10-12] MEDS: cefTRIAXone 1 GM in D5W 110 ML IVPB SCH (09:23)
[2017-10-12] MEDS: Furosemide 40mg tab ORAL SCH (09:23)
[2017-10-12] MEDS: Spironolactone 25mg tab ORAL SCH (09:24)
[2017-10-12] MEDS: Amiodarone 200mg tab ORAL SCH ×2 (09:27→21:25)
[2017-10-12] MEDS: Thiamine 100mg tab ORAL SCH (09:29)
[2017-10-12 11:52] LABS: BASOPHILS % (AUTO) 0.9 % (0.0-2.0); EOSINOPHILS % (AUTO) 0.6 % (0.0-3.0); HEMOGLOBIN 9.3 G/DL (14.2-18.0); LYMPHOCYTES % (AUTO) 7.6 % (20.0-45.0); MEAN CORPUSCULAR VOLUME 89 FL (80-99); MONOCYTES % (AUTO) 16.5 % (1.0-10.0); NEUTROPHILS % (AUTO) 74.4 % (45.0-75.0); PLATELET COUNT 196 K/UL (150-450); RED BLOOD COUNT 3.37 M/UL (4.70-6.10); RED CELL DISTRIBUTION WIDTH 14.3 % (11.6-14.8); WHITE BLOOD COUNT 5.8 K/UL (4.8-10.8)
[2017-10-12 12:00] LABS: ANION GAP 2 mmol/L (5-15); BLOOD UREA NITROGEN 29 mg/dL (7-18); CALCIUM 7.9 MG/DL (8.5-10.1); CARBON DIOXIDE 29 MMOL/L (21-32); CHLORIDE 105 MMOL/L (98-107); CREATININE 1.6 MG/DL (0.55-1.30); POTASSIUM 3.3 MMOL/L (3.5-5.1); SODIUM 136 MMOL/L (136-145)
--- NOTE | 2017-10-12 12:42 | Infectious Diseases Prog Note ---
Assessment/Plan Assessment/Plan Full consult dictated: A) 1) klebsiella ascites culture, high risk for sbp 2) uti 3) cirrhosis 4) pmh noted P) 1) rocephin plus flagyl 2) monitor labs 3) d/w Valerie Lester NP 4) thank you Subjective Allergies: Coded Allergies: No Known Allergies (Unverified , 08/30/17) Objective Vital Signs Last 24 Hour Vital Signs Date Time Temp Pulse Resp B/P (MAP) Pulse Ox O2 Delivery O2 Flow Rate FiO2 10/12/17 12:00 98.8 103 20 110/72 (85) 100 98.8 10/12/17 09:23 143/67 10/12/17 09:23 101 143/67 10/12/17 09:00 Room Air 10/12/17 08:00 97.5 101 20 143/67 (92) 99 97.5 10/12/17 07:41 124 10/12/17 07:00 100 20 Room Air 21 10/12/17 06:00 100/68 10/12/17 04:00 98.5 86 20 100/52 (68) 100 98.5 10/12/17 04:00 102 10/12/17 00:00 101 10/12/17 00:00 98.5 102 18 98/67 (77) 95 98.5 10/11/17 22:00 98/61 10/11/17 21:00 Room Air 10/11/17 21:00 102 98/61 10/11/17 20:15 84 20 Room Air 21 10/11/17 20:00 105 10/11/17 20:00 97.6 86 20 106/52 (70) 100 97.6 10/11/17 16:00 98.3 102 20 106/66 (79) 100 98.3 10/11/17 15:45 119 10/11/17 15:18 112/66 Height (Feet): 5 Height (Inches): 6.00 Weight (Pounds): 166 Laboratory Tests Test 10/12/17 11:30 White Blood Count 5.8 K/UL (4.8-10.8) Red Blood Count 3.37 M/UL (4.70-6.10) L Hemoglobin 9.3 G/DL (14.2-18.0) L Hematocrit 30.0 % (42.0-52.0) L Mean Corpuscular Volume 89 FL (80-99) Mean Corpuscular Hemoglobin 27.5 PG (27.0-31.0) Mean Corpuscular Hemoglobin Concent 30.8 G/DL (32.0-36.0) L Red Cell Distribution Width 14.3 % (11.6-14.8) Platelet Count 196 K/UL (150-450) Mean Platelet Volume 6.9 FL (6.5-10.1) Neutrophils (%) (Auto) 74.4 % (45.0-75.0) Lymphocytes (%) (Auto) 7.6 % (20.0-45.0) L Monocytes (%) (Auto) 16.5 % (1.0-10.0) H Eosinophils (%) (Auto) 0.6 % (0.0-3.0) Basophils (%) (Auto) 0.9 % (0.0-2.0) Sodium Level 136 MMOL/L (136-145) Potassium Level 3.3 MMOL/L (3.5-5.1) L Chloride Level 105 MMOL/L (98-107) Carbon Dioxide Level 29 MMOL/L (21-32) Anion Gap 2 mmol/L (5-15) L Blood Urea Nitrogen 29 mg/dL (7-18) H Creatinine 1.6 MG/DL (0.55-1.30) H Estimat Glomerular Filtration Rate mL/min (>60) Glucose Level 100 MG/DL (74-106) Calcium Level 7.9 MG/DL (8.5-10.1) L Current Medications Medications (Trade) Dose Ordered Sig/Saul Route PRN Reason Start Time Stop Time Status Last Admin Dose Admin Albuterol/ Ipratropium (Albuterol/ Ipratropium) 3 ml Q4H PRN HHN Shortness of Breath 10/07/17 15:15 10/12/17 15:14 Amiodarone HCl (Cordarone) 400 mg EVERY 12 HOURS ORAL 10/11/17 21:00 11/10/17 20:59 10/12/17 09:27 Carvedilol (Coreg) 25 mg EVERY 12 HOURS ORAL 10/09/17 09:00 11/08/17 08:59 10/12/17 09:23 Ceftriaxone Sodium 1 gm/ Dextrose 110 ml @ 220 mls/hr DAILY IVPB 10/08/17 09:00 10/15/17 08:59 10/12/17 09:23 Chlorhexidine Gluconate (Sofia-Hex 2%) 1 applic DAILY@2000 TOPIC 10/08/17 20:00 11/07/17 19:59 10/10/17 21:15 Dextrose (Dextrose 50%) 25 ml STAT PRN IV Hypoglycemia 10/07/17 15:15 11/06/17 15:14 Dextrose (Dextrose 50%) 50 ml STAT PRN IV Hypoglycemia 10/07/17 15:15 11/06/17 15:14 Diazepam (Valium) 10 mg Q6H PRN ORAL For Anxiety 10/11/17 00:00 10/18/17 00:00 Folic Acid (Folate) 1 mg DAILY ORAL 10/09/17 09:00 11/08/17 08:59 10/12/17 09:23 Furosemide (Lasix) 40 mg DAILY ORAL 10/10/17 09:00 11/09/17 08:59 10/12/17 09:23 Heparin Sodium (Porcine) (Heparin 5000 units/ml) 5,000 units EVERY 12 HOURS SUBQ 10/09/17 00:00 11/08/17 00:00 10/11/17 23:16 Hydralazine HCl (Apresoline) 50 mg EVERY 8 HOURS ORAL 10/09/17 06:00 11/08/17 05:59 10/11/17 15:18 Hydromorphone HCl (Dilaudid) 0.5 mg Q3H PRN IVP Breakthrough Pain 10/07/17 15:15 10/14/17 15:14 Isosorbide Mononitrate (Imdur) 30 mg DAILY ORAL 10/10/17 09:00 11/09/17 08:59 10/12/17 09:23 Lorazepam (Ativan 2mg/ml 1ml) 0.5 mg Q4H PRN IV For Anxiety 10/07/17 15:15 10/14/17 15:14 Morphine Sulfate (Morphine Sulfate) 1 mg Q3H PRN IVP Severe Pain (Pain Scale 7-10) 10/07/17 15:15 10/14/17 15:14 10/08/17 06:58 Multivitamins (Multivitamins) 1 tab DAILY ORAL 10/09/17 09:00 11/08/17 08:59 10/12/17 09:23 Ondansetron HCl (Zofran) 4 mg Q6H PRN IVP Nausea & Vomiting 10/07/17 15:15 11/06/17 15:14 Spironolactone (Aldactone) 25 mg DAILY ORAL 10/12/17 09:00 11/11/17 08:59 10/12/17 09:24 Thiamine HCl (Vitamin B1) 100 mg DAILY ORAL 10/09/17 09:00 11/08/17 08:59 10/12/17 09:29 Cliff Vela MD Oct 12, 2017 12:41
--- NOTE | 2017-10-12 13:27 | GI Progress Note ---
Assessment/Plan Problems: (1) Ascites ICD Codes: R18.8 - Other ascites SNOMED: 123423659 Qualifiers: Qualified Codes: K70.31 - Alcoholic cirrhosis of liver with ascites (2) Cirrhosis ICD Codes: K74.60 - Unspecified cirrhosis of liver SNOMED: 30250217 (3) Anemia ICD Codes: D64.9 - Anemia, unspecified SNOMED: 739530967 (4) Iron deficiency ICD Codes: E61.1 - Iron deficiency SNOMED: 21105656 Status: stable, progressing Status Narrative Discussed with Dr. Choudhary. Assessment/Plan s/p paracentesis yielding 13.6L of fluid >> r/o SBP anemia work up reviewed >> iron deficiency abdominal U/S reviewed OB stool negative hepatitis panel negative diarrhea per patient >> No diarrhea per RN report hold GI procedures at this time, can be done as outpatient collect stool studies, cdiff abx monitor H&H, prn transfusions bowel regime venofer ppi fu labs The patient was seen and examined at bedside and all new and available data was reviewed in the patients chart. I agree with the above findings, impression and plan. (Patient seen earlier today. Signature stamp does not reflect patient encounter time.). - Robin Choudhary MD Subjective Subjective feels better generally abdominal distention improved states he has been having diarrhea has no history of EGD Objective Last 24 Hour Vital Signs Date Time Temp Pulse Resp B/P (MAP) Pulse Ox O2 Delivery O2 Flow Rate FiO2 10/12/17 12:00 98.8 103 20 110/72 (85) 100 98.8 10/12/17 09:23 143/67 10/12/17 09:23 101 143/67 10/12/17 09:00 Room Air 10/12/17 08:00 97.5 101 20 143/67 (92) 99 97.5 10/12/17 07:41 124 10/12/17 07:00 100 20 Room Air 21 10/12/17 06:00 100/68 10/12/17 04:00 98.5 86 20 100/52 (68) 100 98.5 10/12/17 04:00 102 10/12/17 00:00 101 10/12/17 00:00 98.5 102 18 98/67 (77) 95 98.5 7/16/18 22:00 98/61 10/11/17 21:00 Room Air 10/11/17 21:00 102 98/61 10/11/17 20:15 84 20 Room Air 21 10/11/17 20:00 105 10/11/17 20:00 97.6 86 20 106/52 (70) 100 97.6 10/11/17 16:00 98.3 102 20 106/66 (79) 100 98.3 10/11/17 15:45 119 10/11/17 15:18 112/66 Intake and Output 10/11/17 10/12/17 19:00 07:00 Intake Total 360 ml Output Total 600 ml Balance -240 ml Intake Oral 360 ml Output Urine Total 600 ml # Voids 2 # Bowel Movements 3 1 Laboratory Tests Test 10/12/17 11:30 White Blood Count 5.8 K/UL (4.8-10.8) Red Blood Count 3.37 M/UL (4.70-6.10) L Hemoglobin 9.3 G/DL (14.2-18.0) L Hematocrit 30.0 % (42.0-52.0) L Mean Corpuscular Volume 89 FL (80-99) Mean Corpuscular Hemoglobin 27.5 PG (27.0-31.0) Mean Corpuscular Hemoglobin Concent 30.8 G/DL (32.0-36.0) L Red Cell Distribution Width 14.3 % (11.6-14.8) Platelet Count 196 K/UL (150-450) Mean Platelet Volume 6.9 FL (6.5-10.1) Neutrophils (%) (Auto) 74.4 % (45.0-75.0) Lymphocytes (%) (Auto) 7.6 % (20.0-45.0) L Monocytes (%) (Auto) 16.5 % (1.0-10.0) H Eosinophils (%) (Auto) 0.6 % (0.0-3.0) Basophils (%) (Auto) 0.9 % (0.0-2.0) Sodium Level 136 MMOL/L (136-145) Potassium Level 3.3 MMOL/L (3.5-5.1) L Chloride Level 105 MMOL/L (98-107) Carbon Dioxide Level 29 MMOL/L (21-32) Anion Gap 2 mmol/L (5-15) L Blood Urea Nitrogen 29 mg/dL (7-18) H Creatinine 1.6 MG/DL (0.55-1.30) H Estimat Glomerular Filtration Rate mL/min (>60) Glucose Level 100 MG/DL (74-106) Calcium Level 7.9 MG/DL (8.5-10.1) L Height (Feet): 5 Height (Inches): 6.00 Weight (Pounds): 166 General Appearance: WD/WN, no apparent distress, alert, thin Cardiovascular: normal rate Respiratory/Chest: normal breath sounds, no respiratory distress Abdominal Exam: normal bowel sounds, non tender, soft Extremities: normal range of motion, non-tender Chepe Wolf NP Oct 12, 2017 13:27
--- NOTE | 2017-10-12 15:25 | General Progress Note ---
Assessment/Plan Status: unchanged Assessment/Plan 1. Leukopenia, severe. Likely leukopenia secondary to splenomegaly. --> Hepatitis and human immunodeficiency virus are both negative. --> Ultrasound of the abdomen shows nodular contour of the liver. --> Tumor markers pending --> WBC improving. 2. Anemia due to underlying chronic disease, appears to be stable. --> Anemia w/u has been reviewed, will trend daily. --> Hgb goal >7 3. Coagulopathy, likely related to underlying cirrhosis of the liver. 4. Hyperkalemia, given Kayexalate, currently improved. 5. Biventricular failure with severe pulmonary hypertension. The patient is seen by Cardiology. 6. Ascites, status post paracentesis. The time the note was entered does not necessarily correspond to the time the patient was seen. Subjective Date patient seen: Oct 12, 2017 ROS Limited/Unobtainable: Yes Hematologic/Lymphatic: Reports: anemia Allergies: Coded Allergies: No Known Allergies (Unverified , 08/30/17) All Systems: reviewed and negative except above Subjective No acute events. Cardio recommends transfer to [facility] for mitraclip eval for sever MR. Objective Last 24 Hour Vital Signs Date Time Temp Pulse Resp B/P (MAP) Pulse Ox O2 Delivery O2 Flow Rate FiO2 10/12/17 14:00 110/72 10/12/17 12:00 98.8 103 20 110/72 (85) 100 98.8 10/12/17 09:23 143/67 10/12/17 09:23 101 143/67 10/12/17 09:00 Room Air 10/12/17 08:00 97.5 101 20 143/67 (92) 99 97.5 10/12/17 07:41 124 10/12/17 07:00 100 20 Room Air 21 10/12/17 06:00 100/68 10/12/17 04:00 98.5 86 20 100/52 (68) 100 98.5 10/12/17 04:00 102 10/12/17 00:00 101 10/12/17 00:00 98.5 102 18 98/67 (77) 95 98.5 10/11/17 22:00 98/61 10/11/17 21:00 Room Air 10/11/17 21:00 102 98/61 10/11/17 20:15 84 20 Room Air 21 10/11/17 20:00 105 10/11/17 20:00 97.6 86 20 106/52 (70) 100 97.6 10/11/17 16:00 98.3 102 20 106/66 (79) 100 98.3 10/11/17 15:45 119 Intake and Output 10/11/17 10/12/17 19:00 07:00 Intake Total 360 ml Output Total 600 ml Balance -240 ml Intake Oral 360 ml Output Urine Total 600 ml # Voids 2 # Bowel Movements 3 1 Laboratory Tests 10/12/17 11:30: White Blood Count 5.8, Red Blood Count 3.37L, Hemoglobin 9.3L, Hematocrit 30.0L , Mean Corpuscular Volume 89, Mean Corpuscular Hemoglobin 27.5, Mean Corpuscular Hemoglobin Concent 30.8L, Red Cell Distribution Width 14.3, Platelet Count 196, Mean Platelet Volume 6.9, Neutrophils (%) (Auto) 74.4, Lymphocytes (%) (Auto) 7.6L, Monocytes (%) (Auto) 16.5H, Eosinophils (%) (Auto) 0.6, Basophils (%) (Auto) 0.9, Sodium Level 136, Potassium Level 3.3L, Chloride Level 105, Carbon Dioxide Level 29, Anion Gap 2L, Blood Urea Nitrogen 29H, Creatinine 1.6H, Estimat Glomerular Filtration Rate , Glucose Level 100, Calcium Level 7.9L Height (Feet): 5 Height (Inches): 6.00 Weight (Pounds): 166 General Appearance: no apparent distress, alert EENT: PERRL/EOMI Neck: normal alignment Cardiovascular: tachycardia Respiratory/Chest: no respiratory distress Abdomen: non tender Christiano Hoffmann MD Oct 12, 2017 15:25
--- NOTE | 2017-10-12 15:36 | General Progress Note ---
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 -folate -thiamine -valium prn Subjective Date patient seen: Oct 12, 2017 Neurologic/Psychiatric: Reports: anxiety, emotional problems Allergies: Coded Allergies: No Known Allergies (Unverified , 08/30/17) Objective Last 24 Hour Vital Signs Date Time Temp Pulse Resp B/P (MAP) Pulse Ox O2 Delivery O2 Flow Rate FiO2 10/12/17 14:00 110/72 10/12/17 12:00 98.8 103 20 110/72 (85) 100 98.8 10/12/17 09:23 143/67 10/12/17 09:23 101 143/67 10/12/17 09:00 Room Air 10/12/17 08:00 97.5 101 20 143/67 (92) 99 97.5 10/12/17 07:41 124 10/12/17 07:00 100 20 Room Air 21 10/12/17 06:00 100/68 10/12/17 04:00 98.5 86 20 100/52 (68) 100 98.5 10/12/17 04:00 102 10/12/17 00:00 101 10/12/17 00:00 98.5 102 18 98/67 (77) 95 98.5 10/11/17 22:00 98/61 10/11/17 21:00 Room Air 10/11/17 21:00 102 98/61 10/11/17 20:15 84 20 Room Air 21 10/11/17 20:00 105 10/11/17 20:00 97.6 86 20 106/52 (70) 100 97.6 10/11/17 16:00 98.3 102 20 106/66 (79) 100 98.3 10/11/17 15:45 119 Intake and Output 10/11/17 10/12/17 19:00 07:00 Intake Total 360 ml Output Total 600 ml Balance -240 ml Intake Oral 360 ml Output Urine Total 600 ml # Voids 2 # Bowel Movements 3 1 Laboratory Tests 10/12/17 11:30: White Blood Count 5.8, Red Blood Count 3.37L, Hemoglobin 9.3L, Hematocrit 30.0L , Mean Corpuscular Volume 89, Mean Corpuscular Hemoglobin 27.5, Mean Corpuscular Hemoglobin Concent 30.8L, Red Cell Distribution Width 14.3, Platelet Count 196, Mean Platelet Volume 6.9, Neutrophils (%) (Auto) 74.4, Lymphocytes (%) (Auto) 7.6L, Monocytes (%) (Auto) 16.5H, Eosinophils (%) (Auto) 0.6, Basophils (%) (Auto) 0.9, Sodium Level 136, Potassium Level 3.3L, Chloride Level 105, Carbon Dioxide Level 29, Anion Gap 2L, Blood Urea Nitrogen 29H, Creatinine 1.6H, Estimat Glomerular Filtration Rate , Glucose Level 100, Calcium Level 7.9L Height (Feet): 5 Height (Inches): 6.00 Weight (Pounds): 166 General Appearance: WD/WN, no apparent distress, alert Ziyad Ledezma MD Oct 12, 2017 15:36
--- NOTE | 2017-10-12 15:46 | General Progress Note ---
Assessment/Plan Problem List: (1) Acute exacerbation of CHF (congestive heart failure) ICD Codes: I50.9 - Heart failure, unspecified SNOMED: 53656087 (2) Atrial fibrillation with RVR ICD Codes: I48.91 - Unspecified atrial fibrillation SNOMED: 486327244403690 (3) Leukopenia ICD Codes: D72.819 - Decreased white blood cell count, unspecified SNOMED: 49607220, 029654874 Qualifiers: Qualified Codes: D72.819 - Decreased white blood cell count, unspecified (4) UTI (urinary tract infection) ICD Codes: N39.0 - Urinary tract infection, site not specified SNOMED: 54866517 Qualifiers: Qualified Codes: N39.0 - Urinary tract infection, site not specified (5) Anemia ICD Codes: D64.9 - Anemia, unspecified SNOMED: 940189598 (6) Ascites ICD Codes: R18.8 - Other ascites SNOMED: 887308949 Qualifiers: Qualified Codes: K70.31 - Alcoholic cirrhosis of liver with ascites (7) Renal failure ICD Codes: N19 - Unspecified kidney failure SNOMED: 87107049 Qualifiers: Qualified Codes: N17.9 - Acute kidney failure, unspecified; N18.3 - Chronic kidney disease, stage 3 (moderate) (8) Hyperkalemia ICD Codes: E87.5 - Hyperkalemia SNOMED: 29941304 (9) Systolic and diastolic CHF, acute ICD Codes: I50.41 - Acute combined systolic (congestive) and diastolic ( congestive) heart failure SNOMED: 34768179, 217007056182435 (10) Hypoxia ICD Codes: R09.02 - Hypoxemia SNOMED: 697738632 (11) Coagulopathy ICD Codes: D68.9 - Coagulation defect, unspecified SNOMED: 53024100 (12) Severe mitral regurgitation ICD Codes: I34.0 - Nonrheumatic mitral (valve) insufficiency SNOMED: 01370971 (13) 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 hypertension ICD Codes: I27.20 - Pulmonary hypertension, unspecified SNOMED: 61237734 (14) Renal cyst ICD Codes: N28.1 - Cyst of kidney, acquired SNOMED: 648151195 (15) CKD (chronic kidney disease) ICD Codes: N18.9 - Chronic kidney disease, unspecified SNOMED: 714860941 (16) Cirrhosis ICD Codes: K74.60 - Unspecified cirrhosis of liver SNOMED: 69797547 (17) Diarrhea ICD Codes: R19.7 - Diarrhea, unspecified SNOMED: 84369962 Status: stable, progressing Assessment/Plan - Cardiology consulted for A. fibb with RVR/acute CHF exacerbation - Heme/Onc consulted for leukopenia - Nephrology consulted for hyperkalemia/RAMONE - GI consulted for abdominal ascites/possible cirrhosis - ID consulted for possible peritonitis - Appreciate all category consultant rec's - s/p 13.6 L out with paracentesis with IV albumin 25% for hypotension on 10/07 - f/u albumin, culture and gram stain, cytology --> ascitic fluid culture showing Klebsiella pneumoniae. - continue IV ceftriaxone and flagyl per ID - f/u stool culture, o&p, WBC in stool, c. diff given diarrhea - check serial trops/EKG -- unremarkable - check ECHO. Last ECHO showing 15-20% EF in 08/2017. Repeat ECHO showing 10-15% EF, severe pulmonary HTN, and severe MR - Coreg increased to 25mg BID and started on hydralazine 50mg q8hr per cards - f/u abdominal ultrasound -- nodularity in liver consistent with cirrhosis - f/u hepatitis panel, HIV -- negative - f/u tumor markers - f/u anemia workup, stool OB - monitor H/H - No EgD while inpatient, recommended as outpatient - septated renal cyst seen on abd u/s -- f/u repeat U/S in 6 months - Trend Cr -- downtrending - continue diuresis with IV lasix for cardiorenal syndrome - thiamine, folate, multivitamin - venous duplex BLE -- negative - replete lytes prn. Monitor BMP and Mg - hold lisinopril given RAMONE - resume home meds including coreg PATIENT PLACED ON TRANSFER LIST TO [facility] FOR MITRACLIP EVAL WITH DR. CHRIS PRIDE AND ICD PLACEMENT DVT Prophylaxis: SCD, HSQ Code Status: Full Hospital Classification Declaration: Based on this initial evaluation, and depending on the patient's clinical course, I anticipate that this patient will require hospitalization for 3-5 days for Acute CHF exacerbation and ascites and close respiratory/hemodynamic monitoring. Disposition: Once the patient is stable to leave the hospital, I anticipate the patient will likely be discharged to the following environment: home with vs SNF I spent 33 minutes on this patient's case, and 19 minutes were dedicated to counseling and/or care coordination. Discussed with patient/family, nursing staff, SW/CM, all consultants as noted above regarding clinical status, treatment course, and disposition planning. Time of note may not reflect time of encounter. Subjective Date patient seen: Oct 12, 2017 Allergies: Coded Allergies: No Known Allergies (Unverified , 08/30/17) Subjective - overnight, patient had 6 beats of V. tach and was started on amiodarone - patient currently is in A. fibb - placed on transfer list to [facility] - continues to report generalized abdominal pain and diarrhea. no n/v, f/c, cp, sob Objective Last 24 Hour Vital Signs Date Time Temp Pulse Resp B/P (MAP) Pulse Ox O2 Delivery O2 Flow Rate FiO2 10/12/17 14:00 110/72 10/12/17 12:00 98.8 103 20 110/72 (85) 100 98.8 10/12/17 09:23 143/67 10/12/17 09:23 101 143/67 10/12/17 09:00 Room Air 10/12/17 08:00 97.5 101 20 143/67 (92) 99 97.5 10/12/17 07:41 124 10/12/17 07:00 100 20 Room Air 21 10/12/17 06:00 100/68 10/12/17 04:00 98.5 86 20 100/52 (68) 100 98.5 10/12/17 04:00 102 10/12/17 00:00 101 10/12/17 00:00 98.5 102 18 98/67 (77) 95 98.5 10/11/17 22:00 98/61 10/11/17 21:00 Room Air 10/11/17 21:00 102 98/61 10/11/17 20:15 84 20 Room Air 21 10/11/17 20:00 105 10/11/17 20:00 97.6 86 20 106/52 (70) 100 97.6 10/11/17 16:00 98.3 102 20 106/66 (79) 100 98.3 10/11/17 15:45 119 Intake and Output 10/11/17 10/12/17 19:00 07:00 Intake Total 360 ml Output Total 600 ml Balance -240 ml Intake Oral 360 ml Output Urine Total 600 ml # Voids 2 # Bowel Movements 3 1 Laboratory Tests 10/12/17 11:30: White Blood Count 5.8, Red Blood Count 3.37L, Hemoglobin 9.3L, Hematocrit 30.0L , Mean Corpuscular Volume 89, Mean Corpuscular Hemoglobin 27.5, Mean Corpuscular Hemoglobin Concent 30.8L, Red Cell Distribution Width 14.3, Platelet Count 196, Mean Platelet Volume 6.9, Neutrophils (%) (Auto) 74.4, Lymphocytes (%) (Auto) 7.6L, Monocytes (%) (Auto) 16.5H, Eosinophils (%) (Auto) 0.6, Basophils (%) (Auto) 0.9, Sodium Level 136, Potassium Level 3.3L, Chloride Level 105, Carbon Dioxide Level 29, Anion Gap 2L, Blood Urea Nitrogen 29H, Creatinine 1.6H, Estimat Glomerular Filtration Rate , Glucose Level 100, Calcium Level 7.9L Height (Feet): 5 Height (Inches): 6.00 Weight (Pounds): 166 General Appearance: no apparent distress, alert EENT: PERRL/EOMI, normal ENT inspection Neck: non-tender, normal alignment, supple Cardiovascular: normal peripheral pulses, normal rate, regularly irregular Respiratory/Chest: chest wall non-tender, lungs clear, normal breath sounds Abdomen: normal bowel sounds, soft, tender Extremities: normal range of motion, non-tender Edema: mild edema 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
--- NOTE | 2017-10-12 15:58 | Cardiology Progress Note ---
Assessment/Plan Status: stable Assessment/Plan Assessment/Plan Problem List: (1) Acute systolic exacerbation of CHF (congestive heart failure) (2) Atrial fibrillation with RVR (3) Leukopenia (4) UTI (urinary tract infection) (5) Anemia (6) Ascites (7) Renal failure (8) Hyperkalemia s/p paracentesis with 13 liter fluid removed Echo reviewed with acholic induced heart failure and valvular heart disease - functional MR, pulmonary hypertension No cath indicated due to lack of symptoms and objective findings of ACS and poor renal function with risk of contrast nephrology Continue heart failure medications: Coreg max dose, hydralazine/imdur, can not use aldactone/entrestor/losatan due to renal function - renal function improving, start aldactone now that creatinine is <2, if creatinine goes below 1.5 then start losartan for afterload reduction Aspirin Atorvastatin IV albumin bolus for hypotension Continue lasix due to elevated filling pressures Would recommend transfer to [facility] for mitraclip evaluation with Dr. Faisal Jackson for severe MR Subjective Cardiovascular: Reports: no symptoms Respiratory: Reports: no symptoms Gastrointestinal/Abdominal: Reports: no symptoms Subjective NO acute events, no CP/SOB, abdominal distension improved. No complaints SBP 100s, tolerating medications, creatinine improved Objective Last 24 Hour Vital Signs Date Time Temp Pulse Resp B/P (MAP) Pulse Ox O2 Delivery O2 Flow Rate FiO2 10/12/17 14:00 110/72 10/12/17 12:00 98.8 103 20 110/72 (85) 100 98.8 10/12/17 09:23 143/67 10/12/17 09:23 101 143/67 10/12/17 09:00 Room Air 10/12/17 08:00 97.5 101 20 143/67 (92) 99 97.5 10/12/17 07:41 124 10/12/17 07:00 100 20 Room Air 21 10/12/17 06:00 100/68 10/12/17 04:00 98.5 86 20 100/52 (68) 100 98.5 10/12/17 04:00 102 10/12/17 00:00 101 10/12/17 00:00 98.5 102 18 98/67 (77) 95 98.5 10/11/17 22:00 98/61 10/11/17 21:00 Room Air 10/11/17 21:00 102 98/61 10/11/17 20:15 84 20 Room Air 21 10/11/17 20:00 105 10/11/17 20:00 97.6 86 20 106/52 (70) 100 97.6 10/11/17 16:00 98.3 102 20 106/66 (79) 100 98.3 General Appearance: no apparent distress EENT: PERRL/EOMI Neck: non-tender Rhythm: NSR, VT Cardiovascular: diastolic murmur, gallop/S4 Respiratory/Chest: chest wall non-tender Abdomen: normal bowel sounds, distended, tender Extremities: normal range of motion 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: 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 Intake and Output 10/11/17 10/12/17 19:00 07:00 Intake Total 360 ml Output Total 600 ml Balance -240 ml Intake Oral 360 ml Output Urine Total 600 ml # Voids 2 # Bowel Movements 3 1 Laboratory Tests Test 10/12/17 11:30 White Blood Count 5.8 K/UL (4.8-10.8) Red Blood Count 3.37 M/UL (4.70-6.10) L Hemoglobin 9.3 G/DL (14.2-18.0) L Hematocrit 30.0 % (42.0-52.0) L Mean Corpuscular Volume 89 FL (80-99) Mean Corpuscular Hemoglobin 27.5 PG (27.0-31.0) Mean Corpuscular Hemoglobin Concent 30.8 G/DL (32.0-36.0) L Red Cell Distribution Width 14.3 % (11.6-14.8) Platelet Count 196 K/UL (150-450) Mean Platelet Volume 6.9 FL (6.5-10.1) Neutrophils (%) (Auto) 74.4 % (45.0-75.0) Lymphocytes (%) (Auto) 7.6 % (20.0-45.0) L Monocytes (%) (Auto) 16.5 % (1.0-10.0) H Eosinophils (%) (Auto) 0.6 % (0.0-3.0) Basophils (%) (Auto) 0.9 % (0.0-2.0) Sodium Level 136 MMOL/L (136-145) Potassium Level 3.3 MMOL/L (3.5-5.1) L Chloride Level 105 MMOL/L (98-107) Carbon Dioxide Level 29 MMOL/L (21-32) Anion Gap 2 mmol/L (5-15) L Blood Urea Nitrogen 29 mg/dL (7-18) H Creatinine 1.6 MG/DL (0.55-1.30) H Estimat Glomerular Filtration Rate mL/min (>60) Glucose Level 100 MG/DL (74-106) Calcium Level 7.9 MG/DL (8.5-10.1) L Kieran Cedillo M.D. Oct 12, 2017 15:58
[2017-10-12] MEDS: Dyna-Hex 2% Top Sol 2oz TOPIC SCH (21:24)
[2017-10-12 22:46] LABS: APPEARANCE,URINE SLIGHTLY CLOUDY; BILIRUBIN, URINE NEGATIVE (NEGATIVE); COLOR,URINE AMBER; GLUCOSE, URINE (UA) NEGATIVE (NEGATIVE); KETONES,URINE NEGATIVE (NEGATIVE); LEUKOCYTE ESTERASE ,URINE 1+ (NEGATIVE); NITRITE,URINE NEGATIVE (NEGATIVE); PH,URINE 5 (4.5-8.0); PROTEIN,URINE 2+ (NEGATIVE); UROBILINOGEN,URINE NORMAL MG/DL (0.0-1.0)
[2017-10-13] VITALS (7 sets, daily range): BP systolic 90–142; BP diastolic 57–73
[2017-10-13] MEDS: HydrALAZINE 50mg tab ORAL SCH ×3 (05:52→22:19)
[2017-10-13] MEDS: Imdur 30mg tab ORAL SCH (08:05)
[2017-10-13] MEDS: Carvedilol 25mg Tab ORAL SCH ×2 (08:05→21:25)
[2017-10-13] MEDS: Spironolactone 25mg tab ORAL SCH (08:05)
[2017-10-13] MEDS: Furosemide 40mg tab ORAL SCH (08:14)
[2017-10-13] MEDS: cefTRIAXone 1 GM in D5W 110 ML IVPB SCH (08:21)
[2017-10-13] MEDS: Thiamine 100mg tab ORAL SCH (08:22)
[2017-10-13] MEDS: Heparin 5000 units/ml inj SUBQ SCH ×2 (08:22→21:26)
[2017-10-13] MEDS: Amiodarone 200mg tab ORAL SCH ×2 (08:22→21:25)
--- NOTE | 2017-10-13 08:28 | Nephrology Progress Note ---
Assessment/Plan Assessment/Plan 1. CKD 4- Cr down to 1.6 yesterday with AM labs pending. OK for DC from renal point - Cardiorenal - Lasix and Coreg. 2. Severe Pulm HTN/Left Vent Dfx - per cardiology mgmt. Hold LIANNE-I and ARB due to hyperk+ 3. Hypok+ repalced yesterday and Aldactone started 4. CHF/ Cardiac Cirrhosis- alcohol induced - On aldactone, will need monitoring of K+ and Cr as outpt 5. Septated Renal cyst- repeat Renal US in 6 months Subjective Date patient seen: Oct 13, 2017 Time patient seen: 08:25 ROS Limited/Unobtainable: No Allergies: Coded Allergies: No Known Allergies (Unverified , 08/30/17) Subjective Patient in no distress and feels better Objective Last 24 Hour Vital Signs Date Time Temp Pulse Resp B/P (MAP) Pulse Ox O2 Delivery O2 Flow Rate FiO2 10/13/17 08:05 90/60 10/13/17 08:05 97 90/60 10/13/17 08:04 98.2 97 20 90/60 (70) 100 98.2 10/13/17 05:52 106/66 10/13/17 04:00 108 10/13/17 04:00 97.7 106 20 106/66 (79) 96 97.7 10/13/17 00:02 97.7 111 20 113/73 (86) 98 97.7 10/13/17 00:00 120 10/12/17 23:00 97.7 104 20 99/67 (78) 98 97.7 10/12/17 22:00 99/67 10/12/17 21:25 98 134/54 10/12/17 21:00 Room Air 10/12/17 20:00 95 10/12/17 19:29 98.2 98 20 134/54 (80) 98 98.2 10/12/17 16:00 98.3 119 20 112/71 (85) 100 98.3 10/12/17 15:50 112 10/12/17 14:00 110/72 10/12/17 12:00 98.8 103 20 110/72 (85) 100 98.8 10/12/17 11:35 100 10/12/17 09:23 143/67 10/12/17 09:23 101 143/67 10/12/17 09:00 Room Air Intake and Output 10/12/17 10/13/17 19:00 07:00 Intake Total 630 ml 100 ml Output Total 650 ml Balance -20 ml 100 ml Intake Oral 630 ml IV Total 100 ml Output Urine Total 650 ml # Voids 3 # Bowel Movements 2 3 Laboratory Tests 10/12/17 11:30: White Blood Count 5.8, Red Blood Count 3.37L, Hemoglobin 9.3L, Hematocrit 30.0L , Mean Corpuscular Volume 89, Mean Corpuscular Hemoglobin 27.5, Mean Corpuscular Hemoglobin Concent 30.8L, Red Cell Distribution Width 14.3, Platelet Count 196, Mean Platelet Volume 6.9, Neutrophils (%) (Auto) 74.4, Lymphocytes (%) (Auto) 7.6L, Monocytes (%) (Auto) 16.5H, Eosinophils (%) (Auto) 0.6, Basophils (%) (Auto) 0.9, Sodium Level 136, Potassium Level 3.3L, Chloride Level 105, Carbon Dioxide Level 29, Anion Gap 2L, Blood Urea Nitrogen 29H, Creatinine 1.6H, Estimat Glomerular Filtration Rate , Glucose Level 100, Calcium Level 7.9L 10/12/17 22:00: Urine Color Ashlie, Urine Appearance Slightly cloudy, Urine pH 5, Urine Specific [place] 1.020, Urine Protein 2+H, Urine Glucose (UA) Negative, Urine Ketones Negative, Urine Occult Blood 2+H, Urine Nitrite Negative, Urine Bilirubin Negative, Urine Ictotest Negative, Urine Urobilinogen Normal, Urine Leukocyte Esterase 1+H, Urine RBC 0, Urine WBC 5-10H, Urine Squamous Epithelial Cells Few , Urine Uric Acid Crystals FewH, Urine Bacteria Few, Urine Mucus ModerateH Height (Feet): 5 Height (Inches): 6.00 Weight (Pounds): 162 General Appearance: WD/WN, no apparent distress EENT: PERRL/EOMI Neck: non-tender, normal alignment Cardiovascular: normal peripheral pulses, normal rate Respiratory/Chest: chest wall non-tender, lungs clear Abdomen: normal bowel sounds, non tender, soft Edema: no edema noted Arm (L), no edema noted Arm (R), no edema noted Leg (L), no edema noted Leg (R), no edema noted Pedal (L), no edema noted Pedal (R), no edema noted Generalized Mehdi Lewis M.D. Oct 13, 2017 08:28
[2017-10-13 08:33] LABS: BASOPHILS % (AUTO) 0.4 % (0.0-2.0); EOSINOPHILS % (AUTO) 1.1 % (0.0-3.0); HEMATOCRIT 27.6 % (42.0-52.0); HEMOGLOBIN 8.8 G/DL (14.2-18.0); LYMPHOCYTES % (AUTO) 9.4 % (20.0-45.0); MEAN CORPUSCULAR VOLUME 90 FL (80-99); MONOCYTES % (AUTO) 16.8 % (1.0-10.0); NEUTROPHILS % (AUTO) 72.4 % (45.0-75.0); PLATELET COUNT 216 K/UL (150-450); RED BLOOD COUNT 3.06 M/UL (4.70-6.10); RED CELL DISTRIBUTION WIDTH 14.7 % (11.6-14.8); WHITE BLOOD COUNT 5.6 K/UL (4.8-10.8)
--- NOTE | 2017-10-13 08:39 | General Progress Note ---
Assessment/Plan Status: unchanged Assessment/Plan 1. Leukopenia, severe. Likely leukopenia secondary to splenomegaly and cirrhosis --> Hepatitis and human immunodeficiency virus are both negative. --> Ultrasound of the abdomen shows nodular contour of the liver. --> Tumor markers pending, specifically afp --> WBC improving. 2. Anemia due to underlying chronic disease, appears to be stable. --> Anemia w/u has been reviewed, will trend daily. --> Hgb goal >7 3. Coagulopathy, likely related to underlying cirrhosis of the liver. --> give vit k if inr >2 and/or bleeding 4. Hyperkalemia, given Kayexalate, currently improved. 5. Biventricular failure with severe pulmonary hypertension. The patient is seen by Cardiology. 6. Ascites, status post paracentesis. The time the note was entered does not necessarily correspond to the time the patient was seen. Subjective Date patient seen: Oct 13, 2017 ROS Limited/Unobtainable: Yes Hematologic/Lymphatic: Reports: anemia Allergies: Coded Allergies: No Known Allergies (Unverified , 08/30/17) All Systems: reviewed and negative except above Subjective Pt wake and eating breakfast in bed. No acute events. Transfer pending. Objective Last 24 Hour Vital Signs Date Time Temp Pulse Resp B/P (MAP) Pulse Ox O2 Delivery O2 Flow Rate FiO2 10/13/17 08:05 90/60 10/13/17 08:05 97 90/60 10/13/17 08:04 98.2 97 20 90/60 (70) 100 98.2 10/13/17 05:52 106/66 10/13/17 04:00 108 10/13/17 04:00 97.7 106 20 106/66 (79) 96 97.7 10/13/17 00:02 97.7 111 20 113/73 (86) 98 97.7 10/13/17 00:00 120 10/12/17 23:00 97.7 104 20 99/67 (78) 98 97.7 10/12/17 22:00 99/67 10/12/17 21:25 98 134/54 10/12/17 21:00 Room Air 10/12/17 20:00 95 10/12/17 19:29 98.2 98 20 134/54 (80) 98 98.2 10/12/17 16:00 98.3 119 20 112/71 (85) 100 98.3 10/12/17 15:50 112 10/12/17 14:00 110/72 10/12/17 12:00 98.8 103 20 110/72 (85) 100 98.8 10/12/17 11:35 100 10/12/17 09:23 143/67 10/12/17 09:23 101 143/67 10/12/17 09:00 Room Air Intake and Output 10/12/17 10/13/17 19:00 07:00 Intake Total 630 ml 100 ml Output Total 650 ml Balance -20 ml 100 ml Intake Oral 630 ml IV Total 100 ml Output Urine Total 650 ml # Voids 3 # Bowel Movements 2 3 Laboratory Tests 10/12/17 11:30: White Blood Count 5.8, Red Blood Count 3.37L, Hemoglobin 9.3L, Hematocrit 30.0L , Mean Corpuscular Volume 89, Mean Corpuscular Hemoglobin 27.5, Mean Corpuscular Hemoglobin Concent 30.8L, Red Cell Distribution Width 14.3, Platelet Count 196, Mean Platelet Volume 6.9, Neutrophils (%) (Auto) 74.4, Lymphocytes (%) (Auto) 7.6L, Monocytes (%) (Auto) 16.5H, Eosinophils (%) (Auto) 0.6, Basophils (%) (Auto) 0.9, Sodium Level 136, Potassium Level 3.3L, Chloride Level 105, Carbon Dioxide Level 29, Anion Gap 2L, Blood Urea Nitrogen 29H, Creatinine 1.6H, Estimat Glomerular Filtration Rate , Glucose Level 100, Calcium Level 7.9L 10/12/17 22:00: Urine Color Ashlie, Urine Appearance Slightly cloudy, Urine pH 5, Urine Specific [place] 1.020, Urine Protein 2+H, Urine Glucose (UA) Negative, Urine Ketones Negative, Urine Occult Blood 2+H, Urine Nitrite Negative, Urine Bilirubin Negative, Urine Ictotest Negative, Urine Urobilinogen Normal, Urine Leukocyte Esterase 1+H, Urine RBC 0, Urine WBC 5-10H, Urine Squamous Epithelial Cells Few , Urine Uric Acid Crystals FewH, Urine Bacteria Few, Urine Mucus ModerateH 10/13/17 07:40: White Blood Count 5.6, Red Blood Count 3.06L, Hemoglobin 8.8L, Hematocrit 27.6L , Mean Corpuscular Volume 90, Mean Corpuscular Hemoglobin 28.8, Mean Corpuscular Hemoglobin Concent 31.9L, Red Cell Distribution Width 14.7, Platelet Count 216, Mean Platelet Volume 7.3, Neutrophils (%) (Auto) 72.4, Lymphocytes (%) (Auto) 9.4L, Monocytes (%) (Auto) 16.8H, Eosinophils (%) (Auto) 1.1, Basophils (%) (Auto) 0.4 Height (Feet): 5 Height (Inches): 6.00 Weight (Pounds): 162 General Appearance: no apparent distress, alert EENT: PERRL/EOMI Neck: normal alignment Cardiovascular: regularly irregular, tachycardia Respiratory/Chest: no respiratory distress Abdomen: normal bowel sounds, soft Christiano Hoffmann MD Oct 13, 2017 08:39
[2017-10-13 09:17] LABS: ANION GAP 7 mmol/L (5-15); BLOOD UREA NITROGEN 25 mg/dL (7-18); CALCIUM 7.9 MG/DL (8.5-10.1); CARBON DIOXIDE 26 MMOL/L (21-32); CHLORIDE 106 MMOL/L (98-107); CREATININE 1.4 MG/DL (0.55-1.30); POTASSIUM 3.2 MMOL/L (3.5-5.1); SODIUM 139 MMOL/L (136-145)
--- NOTE | 2017-10-13 10:22 | GI Progress Note ---
Assessment/Plan Problems: (1) Ascites ICD Codes: R18.8 - Other ascites SNOMED: 898093085 Qualifiers: Qualified Codes: K70.31 - Alcoholic cirrhosis of liver with ascites (2) Cirrhosis ICD Codes: K74.60 - Unspecified cirrhosis of liver SNOMED: 66964756 (3) Anemia ICD Codes: D64.9 - Anemia, unspecified SNOMED: 248953069 (4) Iron deficiency ICD Codes: E61.1 - Iron deficiency SNOMED: 70847160 Status: stable Status Narrative Discussed with Dr. Choudhary. Assessment/Plan s/p paracentesis yielding 13.6L of fluid >> r/o SBP anemia work up reviewed >> iron deficiency abdominal U/S reviewed OB stool negative hepatitis panel negative diarrhea per patient >> No diarrhea per RN report hold GI procedures at this time, can be done as outpatient collect stool studies, cdiff >> no reports of diarrhea today abx monitor H&H, prn transfusions bowel regime venofer ppi fu labs The patient was seen and examined at bedside and all new and available data was reviewed in the patients chart. I agree with the above findings, impression and plan. (Patient seen earlier today. Signature stamp does not reflect patient encounter time.). - Robin Choudhary MD Subjective Subjective generally feels better states he has been having diarrhea N/V after breakfast has no history of EGD Objective Last 24 Hour Vital Signs Date Time Temp Pulse Resp B/P (MAP) Pulse Ox O2 Delivery O2 Flow Rate FiO2 10/13/17 09:18 97/57 (70) 10/13/17 09:00 Room Air 10/13/17 08:05 90/60 10/13/17 08:05 97 90/60 10/13/17 08:04 98.2 97 20 90/60 (70) 100 98.2 10/13/17 05:52 106/66 10/13/17 04:00 108 10/13/17 04:00 97.7 106 20 106/66 (79) 96 97.7 10/13/17 00:02 97.7 111 20 113/73 (86) 98 97.7 10/13/17 00:00 120 10/12/17 23:00 97.7 104 20 99/67 (78) 98 97.7 10/12/17 22:00 99/67 10/12/17 21:25 98 134/54 10/12/17 21:00 Room Air 10/12/17 20:00 95 10/12/17 19:29 98.2 98 20 134/54 (80) 98 98.2 10/12/17 16:00 98.3 119 20 112/71 (85) 100 98.3 10/12/17 15:50 112 10/12/17 14:00 110/72 10/12/17 12:00 98.8 103 20 110/72 (85) 100 98.8 10/12/17 11:35 100 Intake and Output 10/12/17 10/13/17 19:00 07:00 Intake Total 630 ml 100 ml Output Total 650 ml Balance -20 ml 100 ml Intake Oral 630 ml IV Total 100 ml Output Urine Total 650 ml # Voids 3 # Bowel Movements 2 3 Laboratory Tests Test 10/12/17 11:30 10/12/17 22:00 10/13/17 07:40 10/13/17 08:50 White Blood Count 5.8 K/UL (4.8-10.8) 5.6 K/UL (4.8-10.8) Red Blood Count 3.37 M/UL (4.70-6.10) L 3.06 M/UL (4.70-6.10) L Hemoglobin 9.3 G/DL (14.2-18.0) L 8.8 G/DL (14.2-18.0) L Hematocrit 30.0 % (42.0-52.0) L 27.6 % (42.0-52.0) L Mean Corpuscular Volume 89 FL (80-99) 90 FL (80-99) Mean Corpuscular Hemoglobin 27.5 PG (27.0-31.0) 28.8 PG (27.0-31.0) Mean Corpuscular Hemoglobin Concent 30.8 G/DL (32.0-36.0) L 31.9 G/DL (32.0-36.0) L Red Cell Distribution Width 14.3 % (11.6-14.8) 14.7 % (11.6-14.8) Platelet Count 196 K/UL (150-450) 216 K/UL (150-450) Mean Platelet Volume 6.9 FL (6.5-10.1) 7.3 FL (6.5-10.1) Neutrophils (%) (Auto) 74.4 % (45.0-75.0) 72.4 % (45.0-75.0) Lymphocytes (%) (Auto) 7.6 % (20.0-45.0) L 9.4 % (20.0-45.0) L Monocytes (%) (Auto) 16.5 % (1.0-10.0) H 16.8 % (1.0-10.0) H Eosinophils (%) (Auto) 0.6 % (0.0-3.0) 1.1 % (0.0-3.0) Basophils (%) (Auto) 0.9 % (0.0-2.0) 0.4 % (0.0-2.0) Sodium Level 136 MMOL/L (136-145) 139 MMOL/L (136-145) Potassium Level 3.3 MMOL/L (3.5-5.1) L 3.2 MMOL/L (3.5-5.1) L Chloride Level 105 MMOL/L (98-107) 106 MMOL/L (98-107) Carbon Dioxide Level 29 MMOL/L (21-32) 26 MMOL/L (21-32) Anion Gap 2 mmol/L (5-15) L 7 mmol/L (5-15) Blood Urea Nitrogen 29 mg/dL (7-18) H 25 mg/dL (7-18) H Creatinine 1.6 MG/DL (0.55-1.30) H 1.4 MG/DL (0.55-1.30) H Estimat Glomerular Filtration Rate mL/min (>60) mL/min (>60) Glucose Level 100 MG/DL (74-106) 90 MG/DL (74-106) Calcium Level 7.9 MG/DL (8.5-10.1) L 7.9 MG/DL (8.5-10.1) L Urine Color Ashlie Urine Appearance Slightly cloudy Urine pH 5 (4.5-8.0) Urine Specific [place] 1.020 (1.005-1.035) Urine Protein 2+ (NEGATIVE) H Urine Glucose (UA) Negative (NEGATIVE) Urine Ketones Negative (NEGATIVE) Urine Occult Blood 2+ (NEGATIVE) H Urine Nitrite Negative (NEGATIVE) Urine Bilirubin Negative (NEGATIVE) Urine Ictotest Negative Urine Urobilinogen Normal MG/DL (0.0-1.0) Urine Leukocyte Esterase 1+ (NEGATIVE) H Urine RBC 0 /HPF (0 - 0) Urine WBC 5-10 /HPF (0 - 0) H Urine Squamous Epithelial Cells Few /LPF (NONE/OCC) Urine Uric Acid Crystals Few /LPF (NONE) H Urine Bacteria Few /HPF (NONE) Urine Mucus Moderate /LPF (NONE/OCC) H Height (Feet): 5 Height (Inches): 6.00 Weight (Pounds): 162 General Appearance: WD/WN, no apparent distress, alert Cardiovascular: normal rate Respiratory/Chest: normal breath sounds, no respiratory distress Abdominal Exam: normal bowel sounds, non tender, soft Extremities: non-tender Chepe Wolf NP Oct 13, 2017 10:22
--- NOTE | 2017-10-13 11:07 | Cardiology Progress Note ---
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 Faisal martinez as outpatient to evaluate for pastora clip. Subjective Cardiovascular: Reports: no symptoms Respiratory: Reports: no symptoms Gastrointestinal/Abdominal: Reports: no symptoms Genitourinary: Reports: no symptoms Subjective NO acute events, no CP/SOB, abdominal distension improved. No complaints SBP 100s, tolerating medications, creatinine improved again today, continues to be hypokalemic Objective Last 24 Hour Vital Signs Date Time Temp Pulse Resp B/P (MAP) Pulse Ox O2 Delivery O2 Flow Rate FiO2 10/13/17 09:18 97/57 (70) 10/13/17 09:00 Room Air 10/13/17 08:05 90/60 10/13/17 08:05 97 90/60 10/13/17 08:04 98.2 97 20 90/60 (70) 100 98.2 10/13/17 05:52 106/66 10/13/17 04:00 108 10/13/17 04:00 97.7 106 20 106/66 (79) 96 97.7 10/13/17 00:02 97.7 111 20 113/73 (86) 98 97.7 10/13/17 00:00 120 10/12/17 23:00 97.7 104 20 99/67 (78) 98 97.7 10/12/17 22:00 99/67 10/12/17 21:25 98 134/54 10/12/17 21:00 Room Air 10/12/17 20:00 95 10/12/17 19:29 98.2 98 20 134/54 (80) 98 98.2 10/12/17 16:00 98.3 119 20 112/71 (85) 100 98.3 10/12/17 15:50 112 10/12/17 14:00 110/72 10/12/17 12:00 98.8 103 20 110/72 (85) 100 98.8 10/12/17 11:35 100 General Appearance: no apparent distress EENT: PERRL/EOMI Neck: non-tender Rhythm: NSR Cardiovascular: normal peripheral pulses Respiratory/Chest: chest wall non-tender Abdomen: normal bowel sounds, non tender Neurologic: it engineer II-XII grossly normal Intake and Output 10/12/17 10/13/17 19:00 07:00 Intake Total 630 ml 100 ml Output Total 650 ml Balance -20 ml 100 ml Intake Oral 630 ml IV Total 100 ml Output Urine Total 650 ml # Voids 3 # Bowel Movements 2 3 Laboratory Tests Test 10/12/17 11:30 10/12/17 22:00 10/13/17 07:40 10/13/17 08:50 White Blood Count 5.8 K/UL (4.8-10.8) 5.6 K/UL (4.8-10.8) Red Blood Count 3.37 M/UL (4.70-6.10) L 3.06 M/UL (4.70-6.10) L Hemoglobin 9.3 G/DL (14.2-18.0) L 8.8 G/DL (14.2-18.0) L Hematocrit 30.0 % (42.0-52.0) L 27.6 % (42.0-52.0) L Mean Corpuscular Volume 89 FL (80-99) 90 FL (80-99) Mean Corpuscular Hemoglobin 27.5 PG (27.0-31.0) 28.8 PG (27.0-31.0) Mean Corpuscular Hemoglobin Concent 30.8 G/DL (32.0-36.0) L 31.9 G/DL (32.0-36.0) L Red Cell Distribution Width 14.3 % (11.6-14.8) 14.7 % (11.6-14.8) Platelet Count 196 K/UL (150-450) 216 K/UL (150-450) Mean Platelet Volume 6.9 FL (6.5-10.1) 7.3 FL (6.5-10.1) Neutrophils (%) (Auto) 74.4 % (45.0-75.0) 72.4 % (45.0-75.0) Lymphocytes (%) (Auto) 7.6 % (20.0-45.0) L 9.4 % (20.0-45.0) L Monocytes (%) (Auto) 16.5 % (1.0-10.0) H 16.8 % (1.0-10.0) H Eosinophils (%) (Auto) 0.6 % (0.0-3.0) 1.1 % (0.0-3.0) Basophils (%) (Auto) 0.9 % (0.0-2.0) 0.4 % (0.0-2.0) Sodium Level 136 MMOL/L (136-145) 139 MMOL/L (136-145) Potassium Level 3.3 MMOL/L (3.5-5.1) L 3.2 MMOL/L (3.5-5.1) L Chloride Level 105 MMOL/L (98-107) 106 MMOL/L (98-107) Carbon Dioxide Level 29 MMOL/L (21-32) 26 MMOL/L (21-32) Anion Gap 2 mmol/L (5-15) L 7 mmol/L (5-15) Blood Urea Nitrogen 29 mg/dL (7-18) H 25 mg/dL (7-18) H Creatinine 1.6 MG/DL (0.55-1.30) H 1.4 MG/DL (0.55-1.30) H Estimat Glomerular Filtration Rate mL/min (>60) mL/min (>60) Glucose Level 100 MG/DL (74-106) 90 MG/DL (74-106) Calcium Level 7.9 MG/DL (8.5-10.1) L 7.9 MG/DL (8.5-10.1) L Urine Color Ashlie Urine Appearance Slightly cloudy Urine pH 5 (4.5-8.0) Urine Specific [place] 1.020 (1.005-1.035) Urine Protein 2+ (NEGATIVE) H Urine Glucose (UA) Negative (NEGATIVE) Urine Ketones Negative (NEGATIVE) Urine Occult Blood 2+ (NEGATIVE) H Urine Nitrite Negative (NEGATIVE) Urine Bilirubin Negative (NEGATIVE) Urine Ictotest Negative Urine Urobilinogen Normal MG/DL (0.0-1.0) Urine Leukocyte Esterase 1+ (NEGATIVE) H Urine RBC 0 /HPF (0 - 0) Urine WBC 5-10 /HPF (0 - 0) H Urine Squamous Epithelial Cells Few /LPF (NONE/OCC) Urine Uric Acid Crystals Few /LPF (NONE) H Urine Bacteria Few /HPF (NONE) Urine Mucus Moderate /LPF (NONE/OCC) H Microbiology Date/Time Source Procedure Growth Status 10/10/17 16:50 Stool WBC Smear - Final Complete FilsoKieran samuels M.D. Oct 13, 2017 11:07
--- NOTE | 2017-10-13 14:24 | General Progress Note ---
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 -folate -thiamine -valium prn Subjective Date patient seen: Oct 13, 2017 Neurologic/Psychiatric: Reports: depressed, emotional problems Allergies: Coded Allergies: No Known Allergies (Unverified , 08/30/17) Objective Last 24 Hour Vital Signs Date Time Temp Pulse Resp B/P (MAP) Pulse Ox O2 Delivery O2 Flow Rate FiO2 10/13/17 14:00 91/58 10/13/17 12:00 97 10/13/17 12:00 97.8 76 20 91/58 (69) 97 97.8 10/13/17 09:18 97/57 (70) 10/13/17 09:00 Room Air 10/13/17 08:05 90/60 10/13/17 08:05 97 90/60 10/13/17 08:04 98.2 97 20 90/60 (70) 100 98.2 10/13/17 08:00 94 10/13/17 05:52 106/66 10/13/17 04:00 108 10/13/17 04:00 97.7 106 20 106/66 (79) 96 97.7 10/13/17 00:02 97.7 111 20 113/73 (86) 98 97.7 10/13/17 00:00 120 10/12/17 23:00 97.7 104 20 99/67 (78) 98 97.7 10/12/17 22:00 99/67 10/12/17 21:25 98 134/54 10/12/17 21:00 Room Air 10/12/17 20:00 95 10/12/17 19:29 98.2 98 20 134/54 (80) 98 98.2 10/12/17 16:00 98.3 119 20 112/71 (85) 100 98.3 10/12/17 15:50 112 Intake and Output 10/12/17 10/13/17 19:00 07:00 Intake Total 630 ml 100 ml Output Total 650 ml Balance -20 ml 100 ml Intake Oral 630 ml IV Total 100 ml Output Urine Total 650 ml # Voids 3 # Bowel Movements 2 3 Laboratory Tests 10/12/17 22:00: Urine Color Ashlie, Urine Appearance Slightly cloudy, Urine pH 5, Urine Specific [place] 1.020, Urine Protein 2+H, Urine Glucose (UA) Negative, Urine Ketones Negative, Urine Occult Blood 2+H, Urine Nitrite Negative, Urine Bilirubin Negative, Urine Ictotest Negative, Urine Urobilinogen Normal, Urine Leukocyte Esterase 1+H, Urine RBC 0, Urine WBC 5-10H, Urine Squamous Epithelial Cells Few , Urine Uric Acid Crystals FewH, Urine Bacteria Few, Urine Mucus ModerateH 10/13/17 07:40: White Blood Count 5.6, Red Blood Count 3.06L, Hemoglobin 8.8L, Hematocrit 27.6L , Mean Corpuscular Volume 90, Mean Corpuscular Hemoglobin 28.8, Mean Corpuscular Hemoglobin Concent 31.9L, Red Cell Distribution Width 14.7, Platelet Count 216, Mean Platelet Volume 7.3, Neutrophils (%) (Auto) 72.4, Lymphocytes (%) (Auto) 9.4L, Monocytes (%) (Auto) 16.8H, Eosinophils (%) (Auto) 1.1, Basophils (%) (Auto) 0.4 10/13/17 08:50: Sodium Level 139, Potassium Level 3.2L, Chloride Level 106, Carbon Dioxide Level 26, Anion Gap 7, Blood Urea Nitrogen 25H, Creatinine 1.4H, Estimat Glomerular Filtration Rate , Glucose Level 90, Calcium Level 7.9L Height (Feet): 5 Height (Inches): 6.00 Weight (Pounds): 162 General Appearance: no apparent distress, alert, confused Ziyad Ledezma MD Oct 13, 2017 14:24
--- NOTE | 2017-10-13 15:30 | General Progress Note ---
Assessment/Plan Problem List: (1) Acute exacerbation of CHF (congestive heart failure) ICD Codes: I50.9 - Heart failure, unspecified SNOMED: 37327052 (2) Atrial fibrillation with RVR ICD Codes: I48.91 - Unspecified atrial fibrillation SNOMED: 054895772020609 (3) Leukopenia ICD Codes: D72.819 - Decreased white blood cell count, unspecified SNOMED: 27306462, 248234391 Qualifiers: Qualified Codes: D72.819 - Decreased white blood cell count, unspecified (4) UTI (urinary tract infection) ICD Codes: N39.0 - Urinary tract infection, site not specified SNOMED: 12612271 Qualifiers: Qualified Codes: N39.0 - Urinary tract infection, site not specified (5) Anemia ICD Codes: D64.9 - Anemia, unspecified SNOMED: 419261681 (6) Ascites ICD Codes: R18.8 - Other ascites SNOMED: 785447060 Qualifiers: Qualified Codes: K70.31 - Alcoholic cirrhosis of liver with ascites (7) Renal failure ICD Codes: N19 - Unspecified kidney failure SNOMED: 53806672 Qualifiers: Qualified Codes: N17.9 - Acute kidney failure, unspecified; N18.3 - Chronic kidney disease, stage 3 (moderate) (8) Hyperkalemia ICD Codes: E87.5 - Hyperkalemia SNOMED: 66024358 (9) Systolic and diastolic CHF, acute ICD Codes: I50.41 - Acute combined systolic (congestive) and diastolic ( congestive) heart failure SNOMED: 31125699, 208263008827604 (10) Hypoxia ICD Codes: R09.02 - Hypoxemia SNOMED: 662591601 (11) Coagulopathy ICD Codes: D68.9 - Coagulation defect, unspecified SNOMED: 74223452 (12) Severe mitral regurgitation ICD Codes: I34.0 - Nonrheumatic mitral (valve) insufficiency SNOMED: 31456469 (13) 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 hypertension ICD Codes: I27.20 - Pulmonary hypertension, unspecified SNOMED: 59530873 (14) Renal cyst ICD Codes: N28.1 - Cyst of kidney, acquired SNOMED: 364261089 (15) CKD (chronic kidney disease) ICD Codes: N18.9 - Chronic kidney disease, unspecified SNOMED: 933371759 (16) Cirrhosis ICD Codes: K74.60 - Unspecified cirrhosis of liver SNOMED: 95614053 (17) Diarrhea ICD Codes: R19.7 - Diarrhea, unspecified SNOMED: 67827971 (18) Hypotension ICD Codes: I95.9 - Hypotension, unspecified SNOMED: 97980643 (19) Ventricular tachycardia ICD Codes: I47.2 - Ventricular tachycardia SNOMED: 9239456, 05268777 Status: stable, progressing Assessment/Plan - Cardiology consulted for A. fibb with RVR/acute CHF exacerbation - Heme/Onc consulted for leukopenia - Nephrology consulted for hyperkalemia/RAMONE - GI consulted for abdominal ascites/possible cirrhosis - ID consulted for possible peritonitis - Appreciate all databases software consultant rec's - s/p 13.6 L out with paracentesis with IV albumin 25% for hypotension on 10/07 - f/u albumin, culture and gram stain, cytology --> ascitic fluid culture showing Klebsiella pneumoniae. - continue IV ceftriaxone and flagyl per ID - f/u stool culture, o&p, WBC in stool, c. diff given diarrhea - check serial trops/EKG -- unremarkable - check ECHO. Last ECHO showing 15-20% EF in 08/2017. Repeat ECHO showing 10-15% EF, severe pulmonary HTN, and severe MR - Coreg increased to 25mg BID and started on hydralazine 50mg q8hr per cards - Started on losartan - f/u abdominal ultrasound -- nodularity in liver consistent with cirrhosis - f/u hepatitis panel, HIV -- negative - f/u tumor markers - f/u anemia workup, stool OB - monitor H/H - No EgD while inpatient, recommended as outpatient - septated renal cyst seen on abd u/s -- f/u repeat U/S in 6 months - Trend Cr -- downtrending - continue diuresis with IV lasix for cardiorenal syndrome - thiamine, folate, multivitamin - venous duplex BLE -- negative - replete lytes prn. Monitor BMP and Mg - resume home meds including coreg [facility] rejected transfer of patient for ICD placement and mitraclip eval/ repair due to insurance reasons. Per cardiology, okay to dc and f/u with Dr. Faisal Jackson as outpatient for eval. Will arrange for lifevest for tomorrow. Will go home with cipro/flagyl x 1 week per ID. D/w patient regarding need for close f/u. Patient appears to not understand his prognosis. States that sister will come tomorrow. Will d/w sister. DC planning in AM if stable and life-vest arranged. DVT Prophylaxis: SCD, HSQ Code Status: Full Hospital Classification Declaration: Based on this initial evaluation, and depending on the patient's clinical course, I anticipate that this patient will require hospitalization for 3-5 days for Acute CHF exacerbation and ascites and close respiratory/hemodynamic monitoring. Disposition: Once the patient is stable to leave the hospital, I anticipate the patient will likely be discharged to the following environment: home with HH vs SNF I spent 33 minutes on this patient's case, and 19 minutes were dedicated to counseling and/or care coordination. Discussed with patient/family, nursing staff, SW/CM, all consultants as noted above regarding clinical status, treatment course, and disposition planning. Time of note may not reflect time of encounter. Subjective Date patient seen: Oct 13, 2017 Allergies: Coded Allergies: No Known Allergies (Unverified , 08/30/17) Subjective - no acute events overnight - denies cp, sob - [facility] denied transfer due to insurance reasons - BP low in systolic 90s today. BP meds held per RN. - Cr downtrending - no diarrhea today Objective Last 24 Hour Vital Signs Date Time Temp Pulse Resp B/P (MAP) Pulse Ox O2 Delivery O2 Flow Rate FiO2 10/13/17 14:00 91/58 10/13/17 12:00 97 10/13/17 12:00 97.8 76 20 91/58 (69) 97 97.8 10/13/17 09:18 97/57 (70) 10/13/17 09:00 Room Air 10/13/17 08:05 90/60 10/13/17 08:05 97 90/60 10/13/17 08:04 98.2 97 20 90/60 (70) 100 98.2 10/13/17 08:00 94 10/13/17 05:52 106/66 10/13/17 04:00 108 10/13/17 04:00 97.7 106 20 106/66 (79) 96 97.7 10/13/17 00:02 97.7 111 20 113/73 (86) 98 97.7 10/13/17 00:00 120 10/12/17 23:00 97.7 104 20 99/67 (78) 98 97.7 10/12/17 22:00 99/67 10/12/17 21:25 98 134/54 10/12/17 21:00 Room Air 10/12/17 20:00 95 10/12/17 19:29 98.2 98 20 134/54 (80) 98 98.2 10/12/17 16:00 98.3 119 20 112/71 (85) 100 98.3 10/12/17 15:50 112 Intake and Output 10/12/17 10/13/17 19:00 07:00 Intake Total 630 ml 100 ml Output Total 650 ml Balance -20 ml 100 ml Intake Oral 630 ml IV Total 100 ml Output Urine Total 650 ml # Voids 3 # Bowel Movements 2 3 Laboratory Tests 10/12/17 22:00: Urine Color Ashlie, Urine Appearance Slightly cloudy, Urine pH 5, Urine Specific [place] 1.020, Urine Protein 2+H, Urine Glucose (UA) Negative, Urine Ketones Negative, Urine Occult Blood 2+H, Urine Nitrite Negative, Urine Bilirubin Negative, Urine Ictotest Negative, Urine Urobilinogen Normal, Urine Leukocyte Esterase 1+H, Urine RBC 0, Urine WBC 5-10H, Urine Squamous Epithelial Cells Few , Urine Uric Acid Crystals FewH, Urine Bacteria Few, Urine Mucus ModerateH 10/13/17 07:40: White Blood Count 5.6, Red Blood Count 3.06L, Hemoglobin 8.8L, Hematocrit 27.6L , Mean Corpuscular Volume 90, Mean Corpuscular Hemoglobin 28.8, Mean Corpuscular Hemoglobin Concent 31.9L, Red Cell Distribution Width 14.7, Platelet Count 216, Mean Platelet Volume 7.3, Neutrophils (%) (Auto) 72.4, Lymphocytes (%) (Auto) 9.4L, Monocytes (%) (Auto) 16.8H, Eosinophils (%) (Auto) 1.1, Basophils (%) (Auto) 0.4 10/13/17 08:50: Sodium Level 139, Potassium Level 3.2L, Chloride Level 106, Carbon Dioxide Level 26, Anion Gap 7, Blood Urea Nitrogen 25H, Creatinine 1.4H, Estimat Glomerular Filtration Rate , Glucose Level 90, Calcium Level 7.9L Height (Feet): 5 Height (Inches): 6.00 Weight (Pounds): 162 General Appearance: no apparent distress, alert EENT: PERRL/EOMI, normal ENT inspection Neck: non-tender, normal alignment, supple Cardiovascular: normal peripheral pulses, regularly irregular Respiratory/Chest: chest wall non-tender, lungs clear, normal breath sounds Abdomen: normal bowel sounds, soft, tender Extremities: normal range of motion, non-tender Edema: mild edema Neurologic: senior net engineer II-XII grossly normal, no motor/sensory deficits, alert, oriented x 3 Skin: normal pigmentation, warm/dry Valerie Lester NP Oct 13, 2017 15:30
--- NOTE | 2017-10-13 18:27 | Infectious Diseases Prog Note ---
Assessment/Plan Assessment/Plan Full consult dictated: A) 1) klebsiella ascites culture, high risk for sbp 2) uti 3) cirrhosis 4) pmh noted P) 1) rocephin plus flagyl 2) check urine culture, monitor labs 3) d/w Valerie Lester NP 4) can discharge on cipro and flagyl x 1 week Subjective Constitutional: Denies: fever HEENT: Denies: congestion Respiratory: Denies: shortness of breath Cardiovascular: Denies: chest pain Gastrointestinal/Abdominal: Reports: other - less abominal pain; Denies: nausea , vomiting, diarrhea Genitourinary: Denies: dysuria Neurologic: Denies: headache Allergies: Coded Allergies: No Known Allergies (Unverified , 08/30/17) Objective Vital Signs Last 24 Hour Vital Signs Date Time Temp Pulse Resp B/P (MAP) Pulse Ox O2 Delivery O2 Flow Rate FiO2 10/13/17 16:00 97 10/13/17 16:00 98.2 20 97/62 (74) 97 98.2 10/13/17 14:00 91/58 10/13/17 12:00 97 10/13/17 12:00 97.8 76 20 91/58 (69) 97 97.8 10/13/17 09:18 97/57 (70) 10/13/17 09:00 Room Air 10/13/17 08:05 90/60 10/13/17 08:05 97 90/60 10/13/17 08:04 98.2 97 20 90/60 (70) 100 98.2 10/13/17 08:00 94 10/13/17 05:52 106/66 10/13/17 04:00 108 10/13/17 04:00 97.7 106 20 106/66 (79) 96 97.7 10/13/17 00:02 97.7 111 20 113/73 (86) 98 97.7 10/13/17 00:00 120 10/12/17 23:00 97.7 104 20 99/67 (78) 98 97.7 10/12/17 22:00 99/67 10/12/17 21:25 98 134/54 10/12/17 21:00 Room Air 10/12/17 20:00 95 10/12/17 19:29 98.2 98 20 134/54 (80) 98 98.2 Height (Feet): 5 Height (Inches): 6.00 Weight (Pounds): 162 HEENT: normocephalic, atraumatic, mucous membranes moist, EOMI, supple, no JVD Respiratory/Chest: lungs clear, normal breath sounds, no respiratory distress Cardiovascular: normal rate, regular rhythm Abdomen: normal bowel sounds, other - some abdominal pain and distention but less Laboratory Tests Test 10/12/17 22:00 10/13/17 07:40 10/13/17 08:50 Urine Color Ashlie Urine Appearance Slightly cloudy Urine pH 5 (4.5-8.0) Urine Specific [place] 1.020 (1.005-1.035) Urine Protein 2+ (NEGATIVE) H Urine Glucose (UA) Negative (NEGATIVE) Urine Ketones Negative (NEGATIVE) Urine Occult Blood 2+ (NEGATIVE) H Urine Nitrite Negative (NEGATIVE) Urine Bilirubin Negative (NEGATIVE) Urine Ictotest Negative Urine Urobilinogen Normal MG/DL (0.0-1.0) Urine Leukocyte Esterase 1+ (NEGATIVE) H Urine RBC 0 /HPF (0 - 0) Urine WBC 5-10 /HPF (0 - 0) H Urine Squamous Epithelial Cells Few /LPF (NONE/OCC) Urine Uric Acid Crystals Few /LPF (NONE) H Urine Bacteria Few /HPF (NONE) Urine Mucus Moderate /LPF (NONE/OCC) H White Blood Count 5.6 K/UL (4.8-10.8) Red Blood Count 3.06 M/UL (4.70-6.10) L Hemoglobin 8.8 G/DL (14.2-18.0) L Hematocrit 27.6 % (42.0-52.0) L Mean Corpuscular Volume 90 FL (80-99) Mean Corpuscular Hemoglobin 28.8 PG (27.0-31.0) Mean Corpuscular Hemoglobin Concent 31.9 G/DL (32.0-36.0) L Red Cell Distribution Width 14.7 % (11.6-14.8) Platelet Count 216 K/UL (150-450) Mean Platelet Volume 7.3 FL (6.5-10.1) Neutrophils (%) (Auto) 72.4 % (45.0-75.0) Lymphocytes (%) (Auto) 9.4 % (20.0-45.0) L Monocytes (%) (Auto) 16.8 % (1.0-10.0) H Eosinophils (%) (Auto) 1.1 % (0.0-3.0) Basophils (%) (Auto) 0.4 % (0.0-2.0) Sodium Level 139 MMOL/L (136-145) Potassium Level 3.2 MMOL/L (3.5-5.1) L Chloride Level 106 MMOL/L (98-107) Carbon Dioxide Level 26 MMOL/L (21-32) Anion Gap 7 mmol/L (5-15) Blood Urea Nitrogen 25 mg/dL (7-18) H Creatinine 1.4 MG/DL (0.55-1.30) H Estimat Glomerular Filtration Rate mL/min (>60) Glucose Level 90 MG/DL (74-106) Calcium Level 7.9 MG/DL (8.5-10.1) L Current Medications Medications (Trade) Dose Ordered Sig/Saul Route PRN Reason Start Time Stop Time Status Last Admin Dose Admin Amiodarone HCl (Cordarone) 400 mg EVERY 12 HOURS ORAL 10/11/17 21:00 11/10/17 20:59 10/13/17 08:22 Carvedilol (Coreg) 25 mg EVERY 12 HOURS ORAL 10/09/17 09:00 11/08/17 08:59 10/12/17 21:25 Ceftriaxone Sodium 1 gm/ Dextrose 110 ml @ 220 mls/hr DAILY IVPB 10/08/17 09:00 10/15/17 08:59 10/13/17 08:21 Chlorhexidine Gluconate (Sofia-Hex 2%) 1 applic DAILY@2000 TOPIC 10/08/17 20:00 11/07/17 19:59 10/12/17 21:24 Dextrose (Dextrose 50%) 25 ml STAT PRN IV Hypoglycemia 10/07/17 15:15 11/06/17 15:14 Dextrose (Dextrose 50%) 50 ml STAT PRN IV Hypoglycemia 10/07/17 15:15 11/06/17 15:14 Diazepam (Valium) 10 mg Q6H PRN ORAL For Anxiety 10/11/17 00:00 10/18/17 00:00 Folic Acid (Folate) 1 mg DAILY ORAL 10/09/17 09:00 11/08/17 08:59 10/13/17 08:22 Furosemide (Lasix) 40 mg DAILY ORAL 10/10/17 09:00 11/09/17 08:59 10/12/17 09:23 Heparin Sodium (Porcine) (Heparin 5000 units/ml) 5,000 units EVERY 12 HOURS SUBQ 10/09/17 00:00 11/08/17 00:00 10/13/17 08:22 Hydralazine HCl (Apresoline) 50 mg EVERY 8 HOURS ORAL 10/09/17 06:00 11/08/17 05:59 10/11/17 15:18 Hydromorphone HCl (Dilaudid) 0.5 mg Q3H PRN IVP Breakthrough Pain 10/07/17 15:15 10/14/17 15:14 Isosorbide Mononitrate (Imdur) 30 mg DAILY ORAL 10/10/17 09:00 11/09/17 08:59 10/12/17 09:23 Lorazepam (Ativan 2mg/ml 1ml) 0.5 mg Q4H PRN IV For Anxiety 10/07/17 15:15 10/14/17 15:14 Losartan Potassium (Cozaar) 25 mg DAILY ORAL 10/14/17 09:00 11/13/17 08:59 Metronidazole 100 ml @ 100 mls/hr EVERY 12 HOURS IVPB 10/12/17 21:00 10/19/17 20:59 10/13/17 09:14 Morphine Sulfate (Morphine Sulfate) 1 mg Q3H PRN IVP Severe Pain (Pain Scale 7-10) 10/07/17 15:15 10/14/17 15:14 10/08/17 06:58 Multivitamins (Multivitamins) 1 tab DAILY ORAL 10/09/17 09:00 11/08/17 08:59 10/13/17 08:22 Ondansetron HCl (Zofran) 4 mg Q6H PRN IVP Nausea & Vomiting 10/07/17 15:15 11/06/17 15:14 10/13/17 08:21 Spironolactone (Aldactone) 25 mg DAILY ORAL 10/12/17 09:00 11/11/17 08:59 10/12/17 09:24 Thiamine HCl (Vitamin B1) 100 mg DAILY ORAL 10/09/17 09:00 11/08/17 08:59 10/13/17 08:22 Cliff Vela MD Oct 13, 2017 18:27
--- NOTE | 2017-10-13 18:40 | Infectious Diseases Prog Note ---
Assessment/Plan Assessment/Plan Full consult dictated: A) 1) klebsiella ascites culture, high risk for sbp 2) uti 3) cirrhosis 4) pmh noted P) 1) rocephin plus flagyl 2) check urine culture, monitor labs 3) d/w Valerie Lester NP 4) can discharge on ceftin plus flagyl x 1 week (avoid cipro secondary to arrhythmia risk) Subjective Allergies: Coded Allergies: No Known Allergies (Unverified , 08/30/17) Objective Vital Signs Last 24 Hour Vital Signs Date Time Temp Pulse Resp B/P (MAP) Pulse Ox O2 Delivery O2 Flow Rate FiO2 10/13/17 16:00 97 10/13/17 16:00 98.2 20 97/62 (74) 97 98.2 10/13/17 14:00 91/58 10/13/17 12:00 97 10/13/17 12:00 97.8 76 20 91/58 (69) 97 97.8 10/13/17 09:18 97/57 (70) 10/13/17 09:00 Room Air 10/13/17 08:05 90/60 10/13/17 08:05 97 90/60 10/13/17 08:04 98.2 97 20 90/60 (70) 100 98.2 10/13/17 08:00 94 10/13/17 05:52 106/66 10/13/17 04:00 108 10/13/17 04:00 97.7 106 20 106/66 (79) 96 97.7 10/13/17 00:02 97.7 111 20 113/73 (86) 98 97.7 10/13/17 00:00 120 10/12/17 23:00 97.7 104 20 99/67 (78) 98 97.7 10/12/17 22:00 99/67 10/12/17 21:25 98 134/54 10/12/17 21:00 Room Air 10/12/17 20:00 95 10/12/17 19:29 98.2 98 20 134/54 (80) 98 98.2 Height (Feet): 5 Height (Inches): 6.00 Weight (Pounds): 162 Laboratory Tests Test 10/12/17 22:00 10/13/17 07:40 10/13/17 08:50 Urine Color Ashlie Urine Appearance Slightly cloudy Urine pH 5 (4.5-8.0) Urine Specific [place] 1.020 (1.005-1.035) Urine Protein 2+ (NEGATIVE) H Urine Glucose (UA) Negative (NEGATIVE) Urine Ketones Negative (NEGATIVE) Urine Occult Blood 2+ (NEGATIVE) H Urine Nitrite Negative (NEGATIVE) Urine Bilirubin Negative (NEGATIVE) Urine Ictotest Negative Urine Urobilinogen Normal MG/DL (0.0-1.0) Urine Leukocyte Esterase 1+ (NEGATIVE) H Urine RBC 0 /HPF (0 - 0) Urine WBC 5-10 /HPF (0 - 0) H Urine Squamous Epithelial Cells Few /LPF (NONE/OCC) Urine Uric Acid Crystals Few /LPF (NONE) H Urine Bacteria Few /HPF (NONE) Urine Mucus Moderate /LPF (NONE/OCC) H White Blood Count 5.6 K/UL (4.8-10.8) Red Blood Count 3.06 M/UL (4.70-6.10) L Hemoglobin 8.8 G/DL (14.2-18.0) L Hematocrit 27.6 % (42.0-52.0) L Mean Corpuscular Volume 90 FL (80-99) Mean Corpuscular Hemoglobin 28.8 PG (27.0-31.0) Mean Corpuscular Hemoglobin Concent 31.9 G/DL (32.0-36.0) L Red Cell Distribution Width 14.7 % (11.6-14.8) Platelet Count 216 K/UL (150-450) Mean Platelet Volume 7.3 FL (6.5-10.1) Neutrophils (%) (Auto) 72.4 % (45.0-75.0) Lymphocytes (%) (Auto) 9.4 % (20.0-45.0) L Monocytes (%) (Auto) 16.8 % (1.0-10.0) H Eosinophils (%) (Auto) 1.1 % (0.0-3.0) Basophils (%) (Auto) 0.4 % (0.0-2.0) Sodium Level 139 MMOL/L (136-145) Potassium Level 3.2 MMOL/L (3.5-5.1) L Chloride Level 106 MMOL/L (98-107) Carbon Dioxide Level 26 MMOL/L (21-32) Anion Gap 7 mmol/L (5-15) Blood Urea Nitrogen 25 mg/dL (7-18) H Creatinine 1.4 MG/DL (0.55-1.30) H Estimat Glomerular Filtration Rate mL/min (>60) Glucose Level 90 MG/DL (74-106) Calcium Level 7.9 MG/DL (8.5-10.1) L Current Medications Medications (Trade) Dose Ordered Sig/Saul Route PRN Reason Start Time Stop Time Status Last Admin Dose Admin Amiodarone HCl (Cordarone) 400 mg EVERY 12 HOURS ORAL 10/11/17 21:00 11/10/17 20:59 10/13/17 08:22 Carvedilol (Coreg) 25 mg EVERY 12 HOURS ORAL 10/09/17 09:00 11/08/17 08:59 10/12/17 21:25 Ceftriaxone Sodium 1 gm/ Dextrose 110 ml @ 220 mls/hr DAILY IVPB 10/08/17 09:00 10/15/17 08:59 10/13/17 08:21 Chlorhexidine Gluconate (Sofia-Hex 2%) 1 applic DAILY@2000 TOPIC 10/08/17 20:00 11/07/17 19:59 10/12/17 21:24 Dextrose (Dextrose 50%) 25 ml STAT PRN IV Hypoglycemia 10/07/17 15:15 11/06/17 15:14 Dextrose (Dextrose 50%) 50 ml STAT PRN IV Hypoglycemia 10/07/17 15:15 11/06/17 15:14 Diazepam (Valium) 10 mg Q6H PRN ORAL For Anxiety 10/11/17 00:00 10/18/17 00:00 Folic Acid (Folate) 1 mg DAILY ORAL 10/09/17 09:00 11/08/17 08:59 10/13/17 08:22 Furosemide (Lasix) 40 mg DAILY ORAL 10/10/17 09:00 11/09/17 08:59 10/12/17 09:23 Heparin Sodium (Porcine) (Heparin 5000 units/ml) 5,000 units EVERY 12 HOURS SUBQ 10/09/17 00:00 11/08/17 00:00 10/13/17 08:22 Hydralazine HCl (Apresoline) 50 mg EVERY 8 HOURS ORAL 10/09/17 06:00 11/08/17 05:59 10/11/17 15:18 Hydromorphone HCl (Dilaudid) 0.5 mg Q3H PRN IVP Breakthrough Pain 10/07/17 15:15 10/14/17 15:14 Isosorbide Mononitrate (Imdur) 30 mg DAILY ORAL 10/10/17 09:00 11/09/17 08:59 10/12/17 09:23 Lorazepam (Ativan 2mg/ml 1ml) 0.5 mg Q4H PRN IV For Anxiety 10/07/17 15:15 10/14/17 15:14 Losartan Potassium (Cozaar) 25 mg DAILY ORAL 10/14/17 09:00 11/13/17 08:59 Metronidazole 100 ml @ 100 mls/hr EVERY 12 HOURS IVPB 10/12/17 21:00 10/19/17 20:59 10/13/17 09:14 Morphine Sulfate (Morphine Sulfate) 1 mg Q3H PRN IVP Severe Pain (Pain Scale 7-10) 10/07/17 15:15 10/14/17 15:14 10/08/17 06:58 Multivitamins (Multivitamins) 1 tab DAILY ORAL 10/09/17 09:00 11/08/17 08:59 10/13/17 08:22 Ondansetron HCl (Zofran) 4 mg Q6H PRN IVP Nausea & Vomiting 10/07/17 15:15 11/06/17 15:14 10/13/17 08:21 Spironolactone (Aldactone) 25 mg DAILY ORAL 10/12/17 09:00 11/11/17 08:59 10/12/17 09:24 Thiamine HCl (Vitamin B1) 100 mg DAILY ORAL 10/09/17 09:00 11/08/17 08:59 10/13/17 08:22 Cliff Vela MD Oct 13, 2017 18:40
[2017-10-13] MEDS: Dyna-Hex 2% Top Sol 2oz TOPIC SCH (20:14)
[2017-10-14] VITALS: BP 100/72
--- NOTE | 2017-10-14 01:15 | Consultation ---
DATE OF CONSULTATION: 10/13/2017 INFECTIOUS DISEASE CONSULTATION CONSULTING PHYSICIAN: Cliff Vela M.D. ATTENDING PHYSICIAN: Orlin Cabrera M.D. REFERRING PHYSICIAN: Orlin Cabrera M.D. REASON FOR CONSULTATION: Klebsiella peritonitis. CHIEF COMPLAINT: The patient's chief complaint coming into the hospital is hyperkalemia and ascites. HISTORY OF PRESENT ILLNESS: This is an 81-year-old male who comes in to [facility] with abdominal discomfort and was diagnosed with ascites. The patient also had hyperkalemia and acute renal failure. The patient had paracentesis, did not have differential, however, the culture grew out Klebsiella pneumoniae. Infectious Disease consultation was requested. The patient was started on Rocephin and Flagyl based on sensitivities. The patient also has possible urinary tract infection with urinalysis having 3+ leukocyte esterase and 5-10 white blood cells. Followup urinalysis had only 1+ leukocyte esterase. The patient will be continued on Rocephin and Flagyl. Case was discussed with Valerie Lester, nurse practitioner. REVIEW OF SYSTEMS: CONSTITUTIONAL: Generalized weakness and fatigue. No fevers. HEAD AND NECK: No head pain. No neck stiffness. CARDIAC: No chest pain. GASTROINTESTINAL: He had abdominal distention and pain. NEUROLOGIC: No seizures. GENITOURINARY: No Adkins. PULMONARY: No congestion or shortness of breath. SKIN: No rash or itching. EXTREMITIES: No extremity pain. PAST MEDICAL HISTORY: Includes history of the following. The patient has past medical history of chronic kidney disease, history of alcohol-related cirrhosis, history of atrial fibrillation, history of edema, history of possible hypertension, history of leukopenia, anemia, ascites, renal failure, hyperkalemia, history of biventricular failure, pulmonary hypertension. ALLERGIES: No known drug allergies. SOCIAL HISTORY: Positive for ETOH in the past. No smoking or IV drug use mentioned. FAMILY HISTORY: Noncontributory. MEDICATIONS: Outside medications were noted and reconciliated. He is on Rocephin, Flagyl, spironolactone, Cordarone, Aldactone, Valium, Imdur, Lasix, Coreg. Other names include isosorbide, furosemide, thiamine, folic acid, multivitamins, heparin, Apresoline, Dilaudid, morphine, Zofran, lorazepam. Outside medications noted and reconciliated. PHYSICAL EXAMINATION: VITAL SIGNS: Temperature is 98.2, pulse rate is 97, respiratory rate 20, blood pressure 97/62, saturation 97%. GENERAL: Alert, responsive, and in no distress. Generalized weakness noted. HEAD AND NECK: Neck is supple. Normocephalic. No facial droop. No thrush. No icterus. HEART: Regular. No gallop or murmur. ABDOMEN: Soft. Some distention. No rebound. LUNGS: Clear bilaterally. No rhonchi or rales. SKIN: No rash. MUSCULOSKELETAL: No effusion. Legs without cellulitis. PERIPHERAL VASCULAR: No cyanosis. GENITOURINARY: No Adkins. LINES: Line sites without phlebitis. NEUROLOGIC: Generalized weakness. Alert and responsive. LABORATORY AND DIAGNOSTIC DATA: Laboratory data, creatinine 1.4. Liver enzymes noted. White count 5.6, hemoglobin 8.8. Body fluid culture of paracentesis or ascitic fluid is growing out Klebsiella pneumoniae, fairly sensitive organism. Imaging studies, chest x-ray showed no active disease. ASSESSMENT AND PLAN: 1. The patient has Klebsiella growing from the ascitic fluid and is at high risk for spontaneous bacterial peritonitis. The patient likely has Klebsiella peritonitis. I will continue Rocephin and Flagyl. We will plan on a 10-day treatment course and can transition to oral Cipro and Flagyl, it would be sufficient for the Klebsiella peritonitis. We can discharge on 1 week of those antibiotics to finish antibiotic course. Case discussed with Valerie Lester nurse practitioner. 2. Acute kidney injury, elevated creatinine, chronic renal failure. 3. Anemia. 4. History of atrial fibrillation. 5. Cirrhosis. 6. ETOH abuse. 7. Leukopenia. 8. No history of diabetes or hypertension mentioned. 9. History of CHF. 10. Rapid ventricular response secondary to atrial fibrillation. 11. Mitral regurgitation. 12. Pulmonary hypertension. 13. Chronic kidney disease. 14. History of ventricular tachycardia. 15. No known allergies. 16. Social history, positive for smoking. 17. MAR was noted. 18. Case was discussed with RN. 19. Case discussed with Valerie Lester nurse practitioner. 20. Continue treatment per primary consultants. ADDENDUM: The patient is at high risk for arrhythmia. Other option for antibiotics includes Ceftin and Flagyl, both p.o. Cliff Vela M.D. DR: Phuc JOB#: [id number] CC:
[2017-10-14 04:00] VITALS: BP 90/60
[2017-10-14] MEDS: HydrALAZINE 50mg tab ORAL SCH (05:32)
[2017-10-14] MEDS: cefTRIAXone 1 GM in D5W 110 ML IVPB SCH (08:01)
[2017-10-14 08:11] VITALS: BP 92/60
[2017-10-14] MEDS: Thiamine 100mg tab ORAL SCH (08:24)
[2017-10-14] MEDS: Spironolactone 25mg tab ORAL SCH (08:24)
[2017-10-14 08:32] LABS: BASOPHILS % (AUTO) 0.5 % (0.0-2.0); HEMATOCRIT 27.7 % (42.0-52.0); HEMOGLOBIN 8.7 G/DL (14.2-18.0); LYMPHOCYTES % (AUTO) 9.5 % (20.0-45.0); MEAN CORPUSCULAR VOLUME 90 FL (80-99); MONOCYTES % (AUTO) 13.1 % (1.0-10.0); NEUTROPHILS % (AUTO) 75.9 % (45.0-75.0); PLATELET COUNT 238 K/UL (150-450); RED BLOOD COUNT 3.07 M/UL (4.70-6.10); RED CELL DISTRIBUTION WIDTH 14.7 % (11.6-14.8); WHITE BLOOD COUNT 6.1 K/UL (4.8-10.8)
--- NOTE | 2017-10-14 08:37 | Nephrology Progress Note ---
Assessment/Plan Assessment/Plan 1. 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 OK for DC from renal point - Cardiorenal - Lasix and Coreg/Hydralazine/losartan/aldactone 2. Severe Pulm HTN/Left Vent Dfx - per cardiology mgmt. 3. Hypok+ am labs pending 4. CHF/ Cardiac Cirrhosis- alcohol induced 5. Septated Renal cyst- repeat Renal US in 6 months Subjective Date patient seen: Oct 14, 2017 Time patient seen: 08:35 ROS Limited/Unobtainable: No Allergies: Coded Allergies: No Known Allergies (Unverified , 08/30/17) Subjective Patient feeling better. No overt distress Objective Last 24 Hour Vital Signs Date Time Temp Pulse Resp B/P (MAP) Pulse Ox O2 Delivery O2 Flow Rate FiO2 10/14/17 08:11 98.0 96 20 92/60 (71) 100 98.0 10/14/17 05:32 90/60 10/14/17 04:00 108 10/14/17 04:00 98.2 102 18 90/60 (70) 96 98.2 10/14/17 00:00 97.2 101 20 100/72 (81) 94 97.2 10/14/17 00:00 98 10/13/17 22:19 142/57 10/13/17 21:25 97 142/57 10/13/17 21:00 Room Air 10/13/17 20:00 103 10/13/17 20:00 98.3 97 20 142/57 (85) 97 98.3 10/13/17 16:00 97 10/13/17 16:00 98.2 20 97/62 (74) 97 98.2 10/13/17 14:00 91/58 10/13/17 12:00 97 10/13/17 12:00 97.8 76 20 91/58 (69) 97 97.8 10/13/17 09:18 97/57 (70) 10/13/17 09:00 Room Air Intake and Output 10/13/17 10/14/17 19:00 07:00 Intake Total 810 ml 240 ml Output Total 400 ml 300 ml Balance 410 ml -60 ml Intake Oral 600 ml 240 ml IV Total 210 ml Output Urine Total 400 ml 300 ml # Bowel Movements 1 2 Laboratory Tests 10/13/17 08:50: Sodium Level 139, Potassium Level 3.2L, Chloride Level 106, Carbon Dioxide Level 26, Anion Gap 7, Blood Urea Nitrogen 25H, Creatinine 1.4H, Estimat Glomerular Filtration Rate , Glucose Level 90, Calcium Level 7.9L 10/14/17 06:20: Sodium Level [Pending], Potassium Level [Pending], Chloride Level [Pending], Carbon Dioxide Level [Pending], Blood Urea Nitrogen [Pending], Creatinine [ Pending], Estimat Glomerular Filtration Rate [Pending], Glucose Level [Pending] , Calcium Level [Pending], White Blood Count [Pending], Red Blood Count [Pending ], Hemoglobin [Pending], Hematocrit [Pending], Mean Corpuscular Volume [Pending] , Mean Corpuscular Hemoglobin [Pending], Mean Corpuscular Hemoglobin Concent [ Pending], Red Cell Distribution Width [Pending], Platelet Count [Pending], Mean Platelet Volume [Pending], Neutrophils (%) (Auto) [Pending], Lymphocytes (%) ( Auto) [Pending], Monocytes (%) (Auto) [Pending], Eosinophils (%) (Auto) [Pending ], Basophils (%) (Auto) [Pending] Height (Feet): 5 Height (Inches): 6.00 Weight (Pounds): 162 General Appearance: WD/WN, no apparent distress EENT: PERRL/EOMI Neck: non-tender, normal alignment, supple Cardiovascular: normal peripheral pulses, normal rate Respiratory/Chest: chest wall non-tender, lungs clear Abdomen: normal bowel sounds, non tender, soft Edema: no edema noted Arm (L), no edema noted Arm (R), no edema noted Leg (L), no edema noted Leg (R), no edema noted Pedal (L), no edema noted Pedal (R), no edema noted Generalized Mehdi Lewis M.D. Oct 14, 2017 08:36
[2017-10-14 08:45] LABS: ANION GAP 6 mmol/L (5-15); BLOOD UREA NITROGEN 19 mg/dL (7-18); CARBON DIOXIDE 26 MMOL/L (21-32); CHLORIDE 107 MMOL/L (98-107); CREATININE 1.4 MG/DL (0.55-1.30); POTASSIUM 3.8 MMOL/L (3.5-5.1); SODIUM 139 MMOL/L (136-145)
[2017-10-14] MEDS: Heparin 5000 units/ml inj SUBQ SCH ×2 (09:00→21:00)
[2017-10-14] MEDS: Imdur 30mg tab ORAL SCH (09:00)
[2017-10-14] MEDS ORDERED: Losartan 25mg tab ORAL SCH (09:00)
[2017-10-14] MEDS: Carvedilol 25mg Tab ORAL SCH (09:00)
[2017-10-14] MEDS: Amiodarone 200mg tab ORAL SCH (09:00)
[2017-10-14] MEDS: Furosemide 40mg tab ORAL SCH (09:00)
--- NOTE | 2017-10-14 10:15 | GI Progress Note ---
Assessment/Plan Problems: (1) Ascites ICD Codes: R18.8 - Other ascites SNOMED: 902352169 Qualifiers: Qualified Codes: K70.31 - Alcoholic cirrhosis of liver with ascites (2) Cirrhosis ICD Codes: K74.60 - Unspecified cirrhosis of liver SNOMED: 26593693 (3) Anemia ICD Codes: D64.9 - Anemia, unspecified SNOMED: 152954258 (4) Iron deficiency ICD Codes: E61.1 - Iron deficiency SNOMED: 43296551 Status: stable Status Narrative Discussed with Dr. Choudhary. Assessment/Plan s/p paracentesis yielding 13.6L of fluid >> r/o SBP anemia work up reviewed >> iron deficiency abdominal U/S reviewed OB stool negative hepatitis panel negative diarrhea per patient >> No diarrhea per RN report hold GI procedures at this time, can be done as outpatient collect stool studies, cdiff >> no reports of diarrhea today abx monitor H&H, prn transfusions bowel regime venofer ppi fu labs The patient was seen and examined at bedside and all new and available data was reviewed in the patients chart. I agree with the above findings, impression and plan. (Patient seen earlier today. Signature stamp does not reflect patient encounter time.). - Robin Choudhary MD Subjective Subjective states he has been having diarrhea N/V after breakfast has no history of EGD fatigue Objective Last 24 Hour Vital Signs Date Time Temp Pulse Resp B/P (MAP) Pulse Ox O2 Delivery O2 Flow Rate FiO2 10/14/17 09:00 89/58 10/14/17 09:00 89/58 10/14/17 09:00 96 89/58 10/14/17 09:00 Room Air 10/14/17 08:11 98.0 96 20 92/60 (71) 100 98.0 10/14/17 05:32 90/60 10/14/17 04:00 108 10/14/17 04:00 98.2 102 18 90/60 (70) 96 98.2 10/14/17 00:00 97.2 101 20 100/72 (81) 94 97.2 10/14/17 00:00 98 10/13/17 22:19 142/57 10/13/17 21:25 97 142/57 10/13/17 21:00 Room Air 10/13/17 20:00 103 10/13/17 20:00 98.3 97 20 142/57 (85) 97 98.3 10/13/17 16:00 97 10/13/17 16:00 98.2 20 97/62 (74) 97 98.2 10/13/17 14:00 91/58 10/13/17 12:00 97 10/13/17 12:00 97.8 76 20 91/58 (69) 97 97.8 Intake and Output 10/13/17 10/14/17 19:00 07:00 Intake Total 810 ml 240 ml Output Total 400 ml 300 ml Balance 410 ml -60 ml Intake Oral 600 ml 240 ml IV Total 210 ml Output Urine Total 400 ml 300 ml # Bowel Movements 1 2 Laboratory Tests Test 10/14/17 06:20 White Blood Count 6.1 K/UL (4.8-10.8) Red Blood Count 3.07 M/UL (4.70-6.10) L Hemoglobin 8.7 G/DL (14.2-18.0) L Hematocrit 27.7 % (42.0-52.0) L Mean Corpuscular Volume 90 FL (80-99) Mean Corpuscular Hemoglobin 28.2 PG (27.0-31.0) Mean Corpuscular Hemoglobin Concent 31.3 G/DL (32.0-36.0) L Red Cell Distribution Width 14.7 % (11.6-14.8) Platelet Count 238 K/UL (150-450) Mean Platelet Volume 6.5 FL (6.5-10.1) Neutrophils (%) (Auto) 75.9 % (45.0-75.0) H Lymphocytes (%) (Auto) 9.5 % (20.0-45.0) L Monocytes (%) (Auto) 13.1 % (1.0-10.0) H Eosinophils (%) (Auto) 1.0 % (0.0-3.0) Basophils (%) (Auto) 0.5 % (0.0-2.0) Sodium Level 139 MMOL/L (136-145) Potassium Level 3.8 MMOL/L (3.5-5.1) Chloride Level 107 MMOL/L (98-107) Carbon Dioxide Level 26 MMOL/L (21-32) Anion Gap 6 mmol/L (5-15) Blood Urea Nitrogen 19 mg/dL (7-18) H Creatinine 1.4 MG/DL (0.55-1.30) H Estimat Glomerular Filtration Rate mL/min (>60) Glucose Level 89 MG/DL (74-106) Calcium Level 8.0 MG/DL (8.5-10.1) L Microbiology Date/Time Source Procedure Growth Status 10/14/17 01:00 Stool Clostridium difficile Toxin Assay - Final Complete Height (Feet): 5 Height (Inches): 6.00 Weight (Pounds): 162 General Appearance: WD/WN, no apparent distress, alert Cardiovascular: normal rate Respiratory/Chest: normal breath sounds, no respiratory distress Abdominal Exam: normal bowel sounds, non tender, soft Extremities: non-tender Chepe Wolf NP Oct 14, 2017 10:15
[2017-10-14 11:23] VITALS: BP 94/71
--- NOTE | 2017-10-14 11:41 | Cardiology Progress Note ---
Assessment/Plan Assessment/Plan Assessment/Plan Problem List: (1) Acute systolic exacerbation of CHF (congestive heart failure) (2) Atrial fibrillation with RVR (3) Leukopenia (4) UTI (urinary tract infection) (5) Anemia (6) Ascites (7) Renal failure (8) Hyperkalemia Coreg 12.5 BID Losartan 50 Aldactone 25 Lifevest for primary prevention due to systolic heart failure Not a candidate for ICD given likely prognosis <1 year Will re evaluate LV function in three months Continue aspirin, atorvastatin, amiodarone Dispo after life vest Subjective Cardiovascular: Reports: no symptoms Respiratory: Reports: no symptoms Gastrointestinal/Abdominal: Reports: no symptoms Genitourinary: Reports: no symptoms Subjective NO acute events, no CP/SOB, abdominal distension improved. SBP 100s, tolerating medications, creatinine stable at 1.4, Mild abdominal pain Objective Last 24 Hour Vital Signs Date Time Temp Pulse Resp B/P (MAP) Pulse Ox O2 Delivery O2 Flow Rate FiO2 10/14/17 11:23 97.9 91 19 94/71 (79) 100 97.9 10/14/17 09:00 89/58 10/14/17 09:00 89/58 10/14/17 09:00 96 89/58 10/14/17 09:00 Room Air 10/14/17 08:11 98.0 96 20 92/60 (71) 100 98.0 10/14/17 08:00 109 10/14/17 05:32 90/60 10/14/17 04:00 108 10/14/17 04:00 98.2 102 18 90/60 (70) 96 98.2 10/14/17 00:00 97.2 101 20 100/72 (81) 94 97.2 10/14/17 00:00 98 10/13/17 22:19 142/57 10/13/17 21:25 97 142/57 10/13/17 21:00 Room Air 10/13/17 20:00 103 10/13/17 20:00 98.3 97 20 142/57 (85) 97 98.3 10/13/17 16:00 97 10/13/17 16:00 98.2 20 97/62 (74) 97 98.2 10/13/17 14:00 91/58 10/13/17 12:00 97 10/13/17 12:00 97.8 76 20 91/58 (69 97 97.8 EENT: PERRL/EOMI Neck: non-tender Rhythm: NSR Cardiovascular: normal peripheral pulses, gallop/S4 Respiratory/Chest: chest wall non-tender Abdomen: normal bowel sounds Extremities: normal range of motion Intake and Output 10/13/17 10/14/17 19:00 07:00 Intake Total 810 ml 240 ml Output Total 400 ml 300 ml Balance 410 ml -60 ml Intake Oral 600 ml 240 ml IV Total 210 ml Output Urine Total 400 ml 300 ml # Bowel Movements 1 2 Laboratory Tests Test 10/14/17 06:20 White Blood Count 6.1 K/UL (4.8-10.8) Red Blood Count 3.07 M/UL (4.70-6.10) L Hemoglobin 8.7 G/DL (14.2-18.0) L Hematocrit 27.7 % (42.0-52.0) L Mean Corpuscular Volume 90 FL (80-99) Mean Corpuscular Hemoglobin 28.2 PG (27.0-31.0) Mean Corpuscular Hemoglobin Concent 31.3 G/DL (32.0-36.0) L Red Cell Distribution Width 14.7 % (11.6-14.8) Platelet Count 238 K/UL (150-450) Mean Platelet Volume 6.5 FL (6.5-10.1) Neutrophils (%) (Auto) 75.9 % (45.0-75.0) H Lymphocytes (%) (Auto) 9.5 % (20.0-45.0) L Monocytes (%) (Auto) 13.1 % (1.0-10.0) H Eosinophils (%) (Auto) 1.0 % (0.0-3.0) Basophils (%) (Auto) 0.5 % (0.0-2.0) Sodium Level 139 MMOL/L (136-145) Potassium Level 3.8 MMOL/L (3.5-5.1) Chloride Level 107 MMOL/L (98-107) Carbon Dioxide Level 26 MMOL/L (21-32) Anion Gap 6 mmol/L (5-15) Blood Urea Nitrogen 19 mg/dL (7-18) H Creatinine 1.4 MG/DL (0.55-1.30) H Estimat Glomerular Filtration Rate mL/min (>60) Glucose Level 89 MG/DL (74-106) Calcium Level 8.0 MG/DL (8.5-10.1) L Alpha Fetoprotein Pending Microbiology Date/Time Source Procedure Growth Status 10/14/17 01:00 Stool Clostridium difficile Toxin Assay - Final Complete 10/12/17 22:00 Urine,Clean Catch Urine Culture - Preliminary NO GROWTH AFTER 24 HOURS Resulted Kieran Cedillo M.D. Oct 14, 2017 11:41
--- NOTE | 2017-10-14 12:03 | General Progress Note ---
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 Objective Last 24 Hour Vital Signs Date Time Temp Pulse Resp B/P (MAP) Pulse Ox O2 Delivery O2 Flow Rate FiO2 10/14/17 11:23 97.9 91 19 94/71 (79) 100 97.9 10/14/17 09:00 89/58 10/14/17 09:00 89/58 10/14/17 09:00 96 89/58 10/14/17 09:00 Room Air 10/14/17 08:11 98.0 96 20 92/60 (71) 100 98.0 10/14/17 08:00 109 10/14/17 05:32 90/60 10/14/17 04:00 108 10/14/17 04:00 98.2 102 18 90/60 (70) 96 98.2 10/14/17 00:00 97.2 101 20 100/72 (81) 94 97.2 10/14/17 00:00 98 10/13/17 22:19 142/57 10/13/17 21:25 97 142/57 10/13/17 21:00 Room Air 10/13/17 20:00 103 10/13/17 20:00 98.3 97 20 142/57 (85) 97 98.3 10/13/17 16:00 97 10/13/17 16:00 98.2 20 97/62 (74) 97 98.2 10/13/17 14:00 91/58 Intake and Output 10/13/17 10/14/17 19:00 07:00 Intake Total 810 ml 240 ml Output Total 400 ml 300 ml Balance 410 ml -60 ml Intake Oral 600 ml 240 ml IV Total 210 ml Output Urine Total 400 ml 300 ml # Bowel Movements 1 2 Laboratory Tests 10/14/17 06:20: White Blood Count 6.1, Red Blood Count 3.07L, Hemoglobin 8.7L, Hematocrit 27.7L , Mean Corpuscular Volume 90, Mean Corpuscular Hemoglobin 28.2, Mean Corpuscular Hemoglobin Concent 31.3L, Red Cell Distribution Width 14.7, Platelet Count 238, Mean Platelet Volume 6.5, Neutrophils (%) (Auto) 75.9H, Lymphocytes (%) (Auto) 9.5L, Monocytes (%) (Auto) 13.1H, Eosinophils (%) (Auto) 1.0, Basophils (%) (Auto) 0.5, Sodium Level 139, Potassium Level 3.8, Chloride Level 107, Carbon Dioxide Level 26, Anion Gap 6, Blood Urea Nitrogen 19H, Creatinine 1.4H, Estimat Glomerular Filtration Rate , Glucose Level 89, Calcium Level 8.0L, Alpha Fetoprotein [Pending] Height (Feet): 5 Height (Inches): 6.00 Weight (Pounds): 162 General Appearance: no apparent distress, alert Neurologic: depressed affect Ziyad Ledezma MD Oct 14, 2017 12:03
[2017-10-14] MEDS: metroNIDAZOLE 500mg tab ORAL SCH ×2 (13:34→22:00)
--- NOTE | 2017-10-14 15:56 | General Progress Note ---
Assessment/Plan Status: stable Assessment/Plan 1. Leukopenia, severe. Likely leukopenia secondary to splenomegaly and cirrhosis --> Hepatitis and human immunodeficiency virus are both negative. --> Ultrasound of the abdomen shows nodular contour of the liver. --> Tumor markers pending, specifically afp --> WBC improving. 2. Anemia due to underlying chronic disease, appears to be stable. --> Anemia w/u has been reviewed, will trend daily. --> Hgb goal >7 3. Coagulopathy, likely related to underlying cirrhosis of the liver. --> give vit k if inr >2 and/or bleeding 4. Hyperkalemia, given Kayexalate, currently improved. 5. Biventricular failure with severe pulmonary hypertension. The patient is seen by Cardiology. 6. Ascites, status post paracentesis. The time the note was entered does not necessarily correspond to the time the patient was seen. Subjective Date patient seen: Oct 14, 2017 ROS Limited/Unobtainable: Yes Hematologic/Lymphatic: Reports: anemia Allergies: Coded Allergies: No Known Allergies (Unverified , 08/30/17) All Systems: reviewed and negative except above Subjective Pt awake and alert. No acute events. Transfer pending. Objective Last 24 Hour Vital Signs Date Time Temp Pulse Resp B/P (MAP) Pulse Ox O2 Delivery O2 Flow Rate FiO2 10/14/17 11:23 97.9 91 19 94/71 (79) 100 97.9 10/14/17 09:00 89/58 10/14/17 09:00 89/58 10/14/17 09:00 96 89/58 10/14/17 09:00 Room Air 10/14/17 08:11 98.0 96 20 92/60 (71) 100 98.0 10/14/17 08:00 109 10/14/17 05:32 90/60 10/14/17 04:00 108 10/14/17 04:00 98.2 102 18 90/60 (70) 96 98.2 10/14/17 00:00 97.2 101 20 100/72 (81) 94 97.2 10/14/17 00:00 98 10/13/17 22:19 142/57 10/13/17 21:25 97 142/57 10/13/17 21:00 Room Air 10/13/17 20:00 103 10/13/17 20:00 98.3 97 20 142/57 (85) 97 98.3 10/13/17 16:00 97 10/13/17 16:00 98.2 20 97/62 (74) 97 98.2 Intake and Output 10/13/17 10/14/17 19:00 07:00 Intake Total 810 ml 240 ml Output Total 400 ml 300 ml Balance 410 ml -60 ml Intake Oral 600 ml 240 ml IV Total 210 ml Output Urine Total 400 ml 300 ml # Bowel Movements 1 2 Laboratory Tests 10/14/17 06:20: White Blood Count 6.1, Red Blood Count 3.07L, Hemoglobin 8.7L, Hematocrit 27.7L , Mean Corpuscular Volume 90, Mean Corpuscular Hemoglobin 28.2, Mean Corpuscular Hemoglobin Concent 31.3L, Red Cell Distribution Width 14.7, Platelet Count 238, Mean Platelet Volume 6.5, Neutrophils (%) (Auto) 75.9H, Lymphocytes (%) (Auto) 9.5L, Monocytes (%) (Auto) 13.1H, Eosinophils (%) (Auto) 1.0, Basophils (%) (Auto) 0.5, Sodium Level 139, Potassium Level 3.8, Chloride Level 107, Carbon Dioxide Level 26, Anion Gap 6, Blood Urea Nitrogen 19H, Creatinine 1.4H, Estimat Glomerular Filtration Rate , Glucose Level 89, Calcium Level 8.0L, Alpha Fetoprotein [Pending] Height (Feet): 5 Height (Inches): 6.00 Weight (Pounds): 162 General Appearance: no apparent distress EENT: PERRL/EOMI Neck: normal alignment Cardiovascular: normal peripheral pulses Respiratory/Chest: no respiratory distress Abdomen: normal bowel sounds Christiano Hoffmann MD Oct 14, 2017 15:56
--- NOTE | 2017-10-14 16:29 | General Progress Note ---
Assessment/Plan Problem List: (1) Acute exacerbation of CHF (congestive heart failure) ICD Codes: I50.9 - Heart failure, unspecified SNOMED: 10972120 (2) Atrial fibrillation with RVR ICD Codes: I48.91 - Unspecified atrial fibrillation SNOMED: 721874402849496 (3) Leukopenia ICD Codes: D72.819 - Decreased white blood cell count, unspecified SNOMED: 68157416, 168875905 Qualifiers: Qualified Codes: D72.819 - Decreased white blood cell count, unspecified (4) UTI (urinary tract infection) ICD Codes: N39.0 - Urinary tract infection, site not specified SNOMED: 29776589 Qualifiers: Qualified Codes: N39.0 - Urinary tract infection, site not specified (5) Anemia ICD Codes: D64.9 - Anemia, unspecified SNOMED: 702476293 (6) Ascites ICD Codes: R18.8 - Other ascites SNOMED: 813159598 Qualifiers: Qualified Codes: K70.31 - Alcoholic cirrhosis of liver with ascites (7) Renal failure ICD Codes: N19 - Unspecified kidney failure SNOMED: 81055833 Qualifiers: Qualified Codes: N17.9 - Acute kidney failure, unspecified; N18.3 - Chronic kidney disease, stage 3 (moderate) (8) Hyperkalemia ICD Codes: E87.5 - Hyperkalemia SNOMED: 79261682 (9) Systolic and diastolic CHF, acute ICD Codes: I50.41 - Acute combined systolic (congestive) and diastolic ( congestive) heart failure SNOMED: 81567956, 731935102704222 (10) Hypoxia ICD Codes: R09.02 - Hypoxemia SNOMED: 175641697 (11) Coagulopathy ICD Codes: D68.9 - Coagulation defect, unspecified SNOMED: 47402361 (12) Severe mitral regurgitation ICD Codes: I34.0 - Nonrheumatic mitral (valve) insufficiency SNOMED: 16658932 (13) 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 hypertension ICD Codes: I27.20 - Pulmonary hypertension, unspecified SNOMED: 72285253 (14) Renal cyst ICD Codes: N28.1 - Cyst of kidney, acquired SNOMED: 640688972 (15) CKD (chronic kidney disease) ICD Codes: N18.9 - Chronic kidney disease, unspecified SNOMED: 802290926 (16) Cirrhosis ICD Codes: K74.60 - Unspecified cirrhosis of liver SNOMED: 12260775 (17) Diarrhea ICD Codes: R19.7 - Diarrhea, unspecified SNOMED: 17925449 (18) Hypotension ICD Codes: I95.9 - Hypotension, unspecified SNOMED: 91319798 (19) Ventricular tachycardia ICD Codes: I47.2 - Ventricular tachycardia SNOMED: 3800371, 85975361 Status: stable, progressing Assessment/Plan - Cardiology consulted for A. fibb with RVR/acute CHF exacerbation - Heme/Onc consulted for leukopenia - Nephrology consulted for hyperkalemia/RAMONE - GI consulted for abdominal ascites/possible cirrhosis - ID consulted for possible peritonitis - Appreciate all system consultant rec's - s/p 13.6 L out with paracentesis with IV albumin 25% for hypotension on 10/07 - f/u albumin, culture and gram stain, cytology --> ascitic fluid culture showing Klebsiella pneumoniae. - continue IV ceftriaxone and flagyl per ID - f/u stool culture, o&p, WBC in stool, c. diff given diarrhea - check serial trops/EKG -- unremarkable - check ECHO. Last ECHO showing 15-20% EF in 08/2017. Repeat ECHO showing 10-15% EF, severe pulmonary HTN, and severe MR - Coreg increased to 25mg BID and started on hydralazine 50mg q8hr per cards - Started on losartan - amiodarone dc'ed - f/u abdominal ultrasound -- nodularity in liver consistent with cirrhosis - f/u hepatitis panel, HIV -- negative - f/u tumor markers - f/u anemia workup, stool OB - monitor H/H - No EgD while inpatient, recommended as outpatient - septated renal cyst seen on abd u/s -- f/u repeat U/S in 6 months - Trend Cr -- downtrending - continue diuresis with IV lasix for cardiorenal syndrome - thiamine, folate, multivitamin - venous duplex BLE -- negative - replete lytes prn. Monitor BMP and Mg - resume home meds including coreg [facility] rejected transfer of patient for ICD placement and mitraclip eval/ repair due to insurance reasons. Per cardiology, okay to dc and f/u with Dr. Faisal Jackson as outpatient for eval. Will arrange for lifevest today Will go home with ceftin/flagyl x 6 days per ID. D/w patient regarding need for close f/u. Patient appears to not understand his prognosis. States that sister will come today but hasn't shown up. Gave card and asked to have his sister call me. DC planning in today or AM once life vest in place. DVT Prophylaxis: SCD, HSQ Code Status: Full Hospital Classification Declaration: Based on this initial evaluation, and depending on the patient's clinical course, I anticipate that this patient will require hospitalization for 3-5 days for Acute CHF exacerbation and ascites and close respiratory/hemodynamic monitoring. Disposition: Once the patient is stable to leave the hospital, I anticipate the patient will likely be discharged to the following environment: home with HH vs SNF I spent 33 minutes on this patient's case, and 19 minutes were dedicated to counseling and/or care coordination. Discussed with patient/family, nursing staff, SW/BENOIT, all consultants as noted above regarding clinical status, treatment course, and disposition planning. Time of note may not reflect time of encounter. Subjective Date patient seen: Oct 14, 2017 Allergies: Coded Allergies: No Known Allergies (Unverified , 08/30/17) Subjective - no acute events overnight - denies cp, sob - c.diff negative. no diarrhea - awaiting life vest today Objective Last 24 Hour Vital Signs Date Time Temp Pulse Resp B/P (MAP) Pulse Ox O2 Delivery O2 Flow Rate FiO2 10/14/17 11:23 97.9 91 19 94/71 (79) 100 97.9 10/14/17 09:00 89/58 10/14/17 09:00 89/58 10/14/17 09:00 96 89/58 10/14/17 09:00 Room Air 10/14/17 08:11 98.0 96 20 92/60 (71) 100 98.0 10/14/17 08:00 109 10/14/17 05:32 90/60 10/14/17 04:00 108 10/14/17 04:00 98.2 102 18 90/60 (70) 96 98.2 10/14/17 00:00 97.2 101 20 100/72 (81) 94 97.2 10/14/17 00:00 98 10/13/17 22:19 142/57 10/13/17 21:25 97 142/57 10/13/17 21:00 Room Air 10/13/17 20:00 103 10/13/17 20:00 98.3 97 20 142/57 (85) 97 98.3 Intake and Output 10/13/17 10/14/17 19:00 07:00 Intake Total 810 ml 240 ml Output Total 400 ml 300 ml Balance 410 ml -60 ml Intake Oral 600 ml 240 ml IV Total 210 ml Output Urine Total 400 ml 300 ml # Bowel Movements 1 2 Laboratory Tests 10/14/17 06:20: White Blood Count 6.1, Red Blood Count 3.07L, Hemoglobin 8.7L, Hematocrit 27.7L , Mean Corpuscular Volume 90, Mean Corpuscular Hemoglobin 28.2, Mean Corpuscular Hemoglobin Concent 31.3L, Red Cell Distribution Width 14.7, Platelet Count 238, Mean Platelet Volume 6.5, Neutrophils (%) (Auto) 75.9H, Lymphocytes (%) (Auto) 9.5L, Monocytes (%) (Auto) 13.1H, Eosinophils (%) (Auto) 1.0, Basophils (%) (Auto) 0.5, Sodium Level 139, Potassium Level 3.8, Chloride Level 107, Carbon Dioxide Level 26, Anion Gap 6, Blood Urea Nitrogen 19H, Creatinine 1.4H, Estimat Glomerular Filtration Rate , Glucose Level 89, Calcium Level 8.0L, Alpha Fetoprotein [Pending] Height (Feet): 5 Height (Inches): 6.00 Weight (Pounds): 162 General Appearance: no apparent distress, alert EENT: PERRL/EOMI, normal ENT inspection Neck: non-tender, normal alignment, supple Cardiovascular: normal peripheral pulses, regularly irregular Respiratory/Chest: chest wall non-tender, lungs clear, normal breath sounds Abdomen: normal bowel sounds, soft, tender Extremities: normal range of motion, non-tender Edema: moderate edema Neurologic: bag shaker II-XII grossly normal, no motor/sensory deficits, alert, oriented x 3 Skin: normal pigmentation, warm/dry Valerie Lester NP Oct 14, 2017 16:29
[2017-10-14 16:32] VITALS: BP 95/61
[2017-10-14 20:00] VITALS: BP 90/58
[2017-10-14] MEDS ORDERED: Carvedilol 12.5mg tab ORAL SCH (21:00)
[2017-10-14] MEDS: Dyna-Hex 2% Top Sol 2oz TOPIC SCH (22:26)
[2017-10-15] VITALS: BP 94/59
[2017-10-15 04:00] VITALS: BP 105/65
[2017-10-15] MEDS: metroNIDAZOLE 500mg tab ORAL SCH ×3 (06:00→13:54)
[2017-10-15 08:00] VITALS: BP 102/61
[2017-10-15] MEDS: Heparin 5000 units/ml inj SUBQ SCH ×2 (08:29→08:34)
[2017-10-15] MEDS: Thiamine 100mg tab ORAL SCH (08:30)
[2017-10-15] MEDS: Spironolactone 25mg tab ORAL SCH (08:30)
[2017-10-15] MEDS: cefTRIAXone 1 GM in D5W 110 ML IVPB SCH (08:36)
[2017-10-15] MEDS ORDERED: Losartan 50mg tab ORAL SCH (09:00)
[2017-10-15 09:40] LABS: BASOPHILS % (AUTO) 0.6 % (0.0-2.0); HEMOGLOBIN 8.8 G/DL (14.2-18.0); LYMPHOCYTES % (AUTO) 7.6 % (20.0-45.0); MEAN CORPUSCULAR VOLUME 90 FL (80-99); MONOCYTES % (AUTO) 9.8 % (1.0-10.0); PLATELET COUNT 255 K/UL (150-450); RED BLOOD COUNT 3.11 M/UL (4.70-6.10); RED CELL DISTRIBUTION WIDTH 15.2 % (11.6-14.8); WHITE BLOOD COUNT 7.6 K/UL (4.8-10.8)
[2017-10-15 09:56] LABS: ALANINE AMINOTRANSFERASE 27 U/L (12-78); ALBUMIN 1.9 G/DL (3.4-5.0); ALKALINE PHOSPHATASE 44 U/L (46-116); ANION GAP 5 mmol/L (5-15); ASPARTATE AMINO TRANSFERASE 24 U/L (15-37); BILIRUBIN,DIRECT 0.1 MG/DL (0.0-0.3); BILIRUBIN,TOTAL 0.4 MG/DL (0.2-1.0); BLOOD UREA NITROGEN 18 mg/dL (7-18); CALCIUM 7.9 MG/DL (8.5-10.1); CARBON DIOXIDE 27 MMOL/L (21-32); CHLORIDE 107 MMOL/L (98-107); CREATININE 1.3 MG/DL (0.55-1.30); PHOSPHORUS 2.4 MG/DL (2.5-4.9); SODIUM 138 MMOL/L (136-145)
--- NOTE | 2017-10-15 10:46 | GI Progress Note ---
Assessment/Plan Problems: (1) Ascites ICD Codes: R18.8 - Other ascites SNOMED: 116157239 Qualifiers: Qualified Codes: K70.31 - Alcoholic cirrhosis of liver with ascites (2) Cirrhosis ICD Codes: K74.60 - Unspecified cirrhosis of liver SNOMED: 94097728 (3) Anemia ICD Codes: D64.9 - Anemia, unspecified SNOMED: 963364791 (4) Iron deficiency ICD Codes: E61.1 - Iron deficiency SNOMED: 85893954 Status: stable Status Narrative Discussed with Dr. Choudhary. Assessment/Plan s/p paracentesis yielding 13.6L of fluid >> r/o SBP anemia work up reviewed >> iron deficiency abdominal U/S reviewed OB stool negative hepatitis panel negative diarrhea per patient >> No diarrhea per RN report hold GI procedures at this time, can be done as outpatient collect stool studies, cdiff >> no reports of diarrhea abx monitor H&H, prn transfusions bowel regime venofer ppi fu labs dc planning The patient was seen and examined at bedside and all new and available data was reviewed in the patients chart. I agree with the above findings, impression and plan. (Patient seen earlier today. Signature stamp does not reflect patient encounter time.). - Robin Choudhary MD Subjective Subjective states he has been having diarrhea N/V after breakfast has no history of EGD fatigue c/o of diarrhea Objective Last 24 Hour Vital Signs Date Time Temp Pulse Resp B/P (MAP) Pulse Ox O2 Delivery O2 Flow Rate FiO2 10/15/17 09:00 Room Air 10/15/17 08:30 102/61 10/15/17 08:00 98.8 92 20 102/61 (75) 100 98.8 10/15/17 04:00 98.3 108 24 105/65 (78) 98 98.3 10/15/17 04:00 113 10/15/17 00:00 Room Air 10/15/17 00:00 123 10/15/17 00:00 98.7 111 24 94/59 (71) 95 98.7 10/14/17 21:00 Room Air 10/14/17 20:00 104 10/14/17 20:00 99.6 96 23 90/58 (69) 95 99.6 10/14/17 17:49 85 10/14/17 16:32 98.2 86 19 95/61 (72) 98 98.2 10/14/17 12:00 105 10/14/17 11:23 97.9 91 19 94/71 (79) 100 97.9 Intake and Output 10/14/17 10/15/17 19:00 07:00 Intake Total 450 ml Output Total 350 ml 900 ml Balance 100 ml -900 ml Intake Oral 450 ml Output Urine Total 350 ml 900 ml # Voids 1 # Bowel Movements 2 4 Laboratory Tests Test 10/15/17 09:25 White Blood Count 7.6 K/UL (4.8-10.8) Red Blood Count 3.11 M/UL (4.70-6.10) L Hemoglobin 8.8 G/DL (14.2-18.0) L Hematocrit 28.0 % (42.0-52.0) L Mean Corpuscular Volume 90 FL (80-99) Mean Corpuscular Hemoglobin 28.1 PG (27.0-31.0) Mean Corpuscular Hemoglobin Concent 31.2 G/DL (32.0-36.0) L Red Cell Distribution Width 15.2 % (11.6-14.8) H Platelet Count 255 K/UL (150-450) Mean Platelet Volume 7.3 FL (6.5-10.1) Neutrophils (%) (Auto) 81.0 % (45.0-75.0) H Lymphocytes (%) (Auto) 7.6 % (20.0-45.0) L Monocytes (%) (Auto) 9.8 % (1.0-10.0) Eosinophils (%) (Auto) 1.0 % (0.0-3.0) Basophils (%) (Auto) 0.6 % (0.0-2.0) Sodium Level 138 MMOL/L (136-145) Potassium Level 4.0 MMOL/L (3.5-5.1) Chloride Level 107 MMOL/L (98-107) Carbon Dioxide Level 27 MMOL/L (21-32) Anion Gap 5 mmol/L (5-15) Blood Urea Nitrogen 18 mg/dL (7-18) Creatinine 1.3 MG/DL (0.55-1.30) Estimat Glomerular Filtration Rate mL/min (>60) Glucose Level 121 MG/DL (74-106) H Uric Acid 6.3 MG/DL (2.6-7.2) Calcium Level 7.9 MG/DL (8.5-10.1) L Phosphorus Level 2.4 MG/DL (2.5-4.9) L Magnesium Level 1.8 MG/DL (1.8-2.4) Total Bilirubin 0.4 MG/DL (0.2-1.0) Direct Bilirubin 0.1 MG/DL (0.0-0.3) Aspartate Amino Transf (AST/SGOT) 24 U/L (15-37) Alanine Aminotransferase (ALT/SGPT) 27 U/L (12-78) Alkaline Phosphatase 44 U/L (46-116) L Total Protein 6.0 G/DL (6.4-8.2) L Albumin 1.9 G/DL (3.4-5.0) L Height (Feet): 5 Height (Inches): 6.00 Weight (Pounds): 162 General Appearance: WD/WN, no apparent distress, alert Cardiovascular: normal rate Respiratory/Chest: normal breath sounds, no respiratory distress Abdominal Exam: normal bowel sounds, non tender, soft Extremities: normal range of motion, non-tender Chepe Wolf NP Oct 15, 2017 10:46
[2017-10-15 12:00] VITALS: BP 100/59
--- NOTE | 2017-10-15 13:12 | Nephrology Progress Note ---
Assessment/Plan Problem List: (1) Renal failure Assessment: cr wnl (2) Systolic and diastolic CHF, acute Assessment: Left ventricular ejection fraction estimated to be 10-15%. (3) Anemia (4) 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 hypertension (5) Cirrhosis (6) Atrial fibrillation Plan IV Iron Optimize cardiac condition gentle diuresis correct electrolyte imbalances Subjective ROS Limited/Unobtainable: No Constitutional: Reports: malaise, weakness Objective Objective Last 24 Hour Vital Signs Date Time Temp Pulse Resp B/P (MAP) Pulse Ox O2 Delivery O2 Flow Rate FiO2 10/15/17 12:00 99 10/15/17 12:00 97.8 95 20 100/59 (73) 98 97.8 10/15/17 09:00 Room Air 10/15/17 08:30 102/61 10/15/17 08:00 111 10/15/17 08:00 98.8 92 20 102/61 (75) 100 98.8 10/15/17 04:00 98.3 108 24 105/65 (78) 98 98.3 10/15/17 04:00 113 10/15/17 00:00 Room Air 10/15/17 00:00 123 10/15/17 00:00 98.7 111 24 94/59 (71) 95 98.7 10/14/17 21:00 Room Air 10/14/17 20:00 104 10/14/17 20:00 99.6 96 23 90/58 (69) 95 99.6 10/14/17 17:49 85 10/14/17 16:32 98.2 86 19 95/61 (72) 98 98.2 Intake and Output 10/14/17 10/15/17 19:00 07:00 Intake Total 450 ml Output Total 350 ml 900 ml Balance 100 ml -900 ml Intake Oral 450 ml Output Urine Total 350 ml 900 ml # Voids 1 # Bowel Movements 2 4 Laboratory Tests 10/15/17 09:25: White Blood Count 7.6, Red Blood Count 3.11L, Hemoglobin 8.8L, Hematocrit 28.0L , Mean Corpuscular Volume 90, Mean Corpuscular Hemoglobin 28.1, Mean Corpuscular Hemoglobin Concent 31.2L, Red Cell Distribution Width 15.2H, Platelet Count 255, Mean Platelet Volume 7.3, Neutrophils (%) (Auto) 81.0H, Lymphocytes (%) (Auto) 7.6L, Monocytes (%) (Auto) 9.8, Eosinophils (%) (Auto) 1.0, Basophils (%) (Auto) 0.6, Sodium Level 138, Potassium Level 4.0, Chloride Level 107, Carbon Dioxide Level 27, Anion Gap 5, Blood Urea Nitrogen 18, Creatinine 1.3, Estimat Glomerular Filtration Rate , Glucose Level 121H, Uric Acid 6.3, Calcium Level 7.9L, Phosphorus Level 2.4L, Magnesium Level 1.8, Total Bilirubin 0.4, Direct Bilirubin 0.1, Aspartate Amino Transf (AST/SGOT) 24, Alanine Aminotransferase (ALT/SGPT) 27, Alkaline Phosphatase 44L, Total Protein 6.0L, Albumin 1.9L Height (Feet): 5 Height (Inches): 6.00 Weight (Pounds): 162 General Appearance: no apparent distress, lethargic Cardiovascular: arrhythmia Respiratory/Chest: decreased breath sounds Abdomen: distended Noel Kim MD Oct 15, 2017 13:12
[2017-10-15] MEDS: Phospha 250 Neutral tab ORAL SCH ×2 (13:15→13:46)
--- NOTE | 2017-10-15 13:29 | General Progress Note ---
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 -folate -thiamine -valium prn Subjective Date patient seen: Oct 15, 2017 Allergies: Coded Allergies: No Known Allergies (Unverified , 08/30/17) Subjective the pt is doing better no anxiety or agitation. Objective Last 24 Hour Vital Signs Date Time Temp Pulse Resp B/P (MAP) Pulse Ox O2 Delivery O2 Flow Rate FiO2 10/15/17 12:00 99 10/15/17 12:00 97.8 95 20 100/59 (73) 98 97.8 10/15/17 09:00 Room Air 10/15/17 08:30 102/61 10/15/17 08:00 111 10/15/17 08:00 98.8 92 20 102/61 (75) 100 98.8 10/15/17 04:00 98.3 108 24 105/65 (78) 98 98.3 10/15/17 04:00 113 10/15/17 00:00 Room Air 10/15/17 00:00 123 10/15/17 00:00 98.7 111 24 94/59 (71) 95 98.7 10/14/17 21:00 Room Air 10/14/17 20:00 104 10/14/17 20:00 99.6 96 23 90/58 (69) 95 99.6 10/14/17 17:49 85 10/14/17 16:32 98.2 86 19 95/61 (72) 98 98.2 Intake and Output 10/14/17 10/15/17 19:00 07:00 Intake Total 450 ml Output Total 350 ml 900 ml Balance 100 ml -900 ml Intake Oral 450 ml Output Urine Total 350 ml 900 ml # Voids 1 # Bowel Movements 2 4 Laboratory Tests 10/15/17 09:25: White Blood Count 7.6, Red Blood Count 3.11L, Hemoglobin 8.8L, Hematocrit 28.0L , Mean Corpuscular Volume 90, Mean Corpuscular Hemoglobin 28.1, Mean Corpuscular Hemoglobin Concent 31.2L, Red Cell Distribution Width 15.2H, Platelet Count 255, Mean Platelet Volume 7.3, Neutrophils (%) (Auto) 81.0H, Lymphocytes (%) (Auto) 7.6L, Monocytes (%) (Auto) 9.8, Eosinophils (%) (Auto) 1.0, Basophils (%) (Auto) 0.6, Sodium Level 138, Potassium Level 4.0, Chloride Level 107, Carbon Dioxide Level 27, Anion Gap 5, Blood Urea Nitrogen 18, Creatinine 1.3, Estimat Glomerular Filtration Rate , Glucose Level 121H, Uric Acid 6.3, Calcium Level 7.9L, Phosphorus Level 2.4L, Magnesium Level 1.8, Total Bilirubin 0.4, Direct Bilirubin 0.1, Aspartate Amino Transf (AST/SGOT) 24, Alanine Aminotransferase (ALT/SGPT) 27, Alkaline Phosphatase 44L, Total Protein 6.0L, Albumin 1.9L Height (Feet): 5 Height (Inches): 6.00 Weight (Pounds): 162 Ziyad Ledezma MD Oct 15, 2017 13:29
[2017-10-15] MEDS ORDERED: Iron Sucrose 200 MG in NS 110 ML IV SCH (14:15)
[2017-10-15] MEDS ORDERED: COZAAR50 MG ORAL (14:41)
[2017-10-15] MEDS ORDERED: THIAMINE HCL100 MG ORAL (14:41)
[2017-10-15] MEDS ORDERED: CEFUROXIME500 MG PO (14:41)
[2017-10-15] MEDS ORDERED: FLAGYL500 MG ORAL (14:41)
[2017-10-15] MEDS ORDERED: ALDACTONE25 MG ORAL (14:41)
[2017-10-15] MEDS ORDERED: MULTIVITAMINS1 EAC2 ORAL (14:41)
--- NOTE | 2017-10-15 14:49 | General Progress Note ---
Assessment/Plan Problem List: (1) Acute exacerbation of CHF (congestive heart failure) ICD Codes: I50.9 - Heart failure, unspecified SNOMED: 17550775 (2) Atrial fibrillation with RVR ICD Codes: I48.91 - Unspecified atrial fibrillation SNOMED: 154057436925967 (3) Leukopenia ICD Codes: D72.819 - Decreased white blood cell count, unspecified SNOMED: 67100278, 931539308 Qualifiers: Qualified Codes: D72.819 - Decreased white blood cell count, unspecified (4) UTI (urinary tract infection) ICD Codes: N39.0 - Urinary tract infection, site not specified SNOMED: 43687145 Qualifiers: Qualified Codes: N39.0 - Urinary tract infection, site not specified (5) Anemia ICD Codes: D64.9 - Anemia, unspecified SNOMED: 293885712 (6) Ascites ICD Codes: R18.8 - Other ascites SNOMED: 367305733 Qualifiers: Qualified Codes: K70.31 - Alcoholic cirrhosis of liver with ascites (7) Renal failure ICD Codes: N19 - Unspecified kidney failure SNOMED: 65442184 Qualifiers: Qualified Codes: N17.9 - Acute kidney failure, unspecified; N18.3 - Chronic kidney disease, stage 3 (moderate) (8) Hyperkalemia ICD Codes: E87.5 - Hyperkalemia SNOMED: 07174674 (9) Systolic and diastolic CHF, acute ICD Codes: I50.41 - Acute combined systolic (congestive) and diastolic ( congestive) heart failure SNOMED: 59652991, 755864999009418 (10) Hypoxia ICD Codes: R09.02 - Hypoxemia SNOMED: 694108262 (11) Coagulopathy ICD Codes: D68.9 - Coagulation defect, unspecified SNOMED: 81630691 (12) Severe mitral regurgitation ICD Codes: I34.0 - Nonrheumatic mitral (valve) insufficiency SNOMED: 64877071 (13) 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 hypertension ICD Codes: I27.20 - Pulmonary hypertension, unspecified SNOMED: 25995620 (14) Renal cyst ICD Codes: N28.1 - Cyst of kidney, acquired SNOMED: 720473211 (15) CKD (chronic kidney disease) ICD Codes: N18.9 - Chronic kidney disease, unspecified SNOMED: 540145279 (16) Cirrhosis ICD Codes: K74.60 - Unspecified cirrhosis of liver SNOMED: 56552298 (17) Diarrhea ICD Codes: R19.7 - Diarrhea, unspecified SNOMED: 90235464 (18) Hypotension ICD Codes: I95.9 - Hypotension, unspecified SNOMED: 93758658 (19) Ventricular tachycardia ICD Codes: I47.2 - Ventricular tachycardia SNOMED: 7052108, 20483829 Status: stable, progressing Assessment/Plan - Cardiology consulted for A. fibb with RVR/acute CHF exacerbation - Heme/Onc consulted for leukopenia - Nephrology consulted for hyperkalemia/RAMONE - GI consulted for abdominal ascites/possible cirrhosis - ID consulted for possible peritonitis - Appreciate all inside sales consultant rec's - s/p 13.6 L out with paracentesis with IV albumin 25% for hypotension on 10/07 - f/u albumin, culture and gram stain, cytology --> ascitic fluid culture showing Klebsiella pneumoniae. - continue IV ceftriaxone and flagyl per ID - f/u stool culture, o&p, WBC in stool, c. diff given diarrhea - check serial trops/EKG -- unremarkable - check ECHO. Last ECHO showing 15-20% EF in 08/2017. Repeat ECHO showing 10-15% EF, severe pulmonary HTN, and severe MR - Coreg increased to 25mg BID and started on hydralazine 50mg q8hr per cards - Started on losartan - amiodarone dc'ed - f/u abdominal ultrasound -- nodularity in liver consistent with cirrhosis - f/u hepatitis panel, HIV -- negative - f/u tumor markers - f/u anemia workup, stool OB - monitor H/H - No EgD while inpatient, recommended as outpatient - septated renal cyst seen on abd u/s -- f/u repeat U/S in 6 months - Trend Cr -- downtrending - continue diuresis with IV lasix for cardiorenal syndrome - thiamine, folate, multivitamin - venous duplex BLE -- negative - replete lytes prn. Monitor BMP and Mg - resume home meds including coreg [facility] rejected transfer of patient for ICD placement and mitraclip eval/ repair due to insurance reasons. Per cardiology, okay to dc and f/u with Dr. Faisal Jackson as outpatient for eval. Patient refused lifevest. Per cardiology, still okay to be discharged home. Will go home with ceftin/flagyl x 5 days per ID. D/w patient regarding need for close f/u. Patient appears to not understand his prognosis. States that sister will come today but hasn't shown up. Gave card and asked to have his sister call me. DC planning in AM. Prescriptions in chart. med recon done DVT Prophylaxis: SCD, HSQ Code Status: Full Hospital Classification Declaration: Based on this initial evaluation, and depending on the patient's clinical course, I anticipate that this patient will require hospitalization for 3-5 days for Acute CHF exacerbation and ascites and close respiratory/hemodynamic monitoring. Disposition: Once the patient is stable to leave the hospital, I anticipate the patient will likely be discharged to the following environment: home with HH vs SNF I spent 33 minutes on this patient's case, and 19 minutes were dedicated to counseling and/or care coordination. Discussed with patient/family, nursing staff, SW/CM, all consultants as noted above regarding clinical status, treatment course, and disposition planning. Time of note may not reflect time of encounter. Subjective Date patient seen: Oct 15, 2017 Allergies: Coded Allergies: No Known Allergies (Unverified , 08/30/17) Subjective refused life vest yesterday per cardiology, okay to dc home AF, HDS Objective Last 24 Hour Vital Signs Date Time Temp Pulse Resp B/P (MAP) Pulse Ox O2 Delivery O2 Flow Rate FiO2 10/15/17 12:00 99 10/15/17 12:00 97.8 95 20 100/59 (73) 98 97.8 10/15/17 09:00 Room Air 10/15/17 08:30 102/61 10/15/17 08:00 111 10/15/17 08:00 98.8 92 20 102/61 (75) 100 98.8 10/15/17 04:00 98.3 108 24 105/65 (78) 98 98.3 10/15/17 04:00 113 10/15/17 00:00 Room Air 10/15/17 00:00 123 10/15/17 00:00 98.7 111 24 94/59 (71) 95 98.7 10/14/17 21:00 Room Air 10/14/17 20:00 104 10/14/17 20:00 99.6 96 23 90/58 (69) 95 99.6 10/14/17 17:49 85 10/14/17 16:32 98.2 86 19 95/61 (72) 98 98.2 Intake and Output 10/14/17 10/15/17 19:00 07:00 Intake Total 450 ml Output Total 350 ml 900 ml Balance 100 ml -900 ml Intake Oral 450 ml Output Urine Total 350 ml 900 ml # Voids 1 # Bowel Movements 2 4 Laboratory Tests 10/15/17 09:25: White Blood Count 7.6, Red Blood Count 3.11L, Hemoglobin 8.8L, Hematocrit 28.0L , Mean Corpuscular Volume 90, Mean Corpuscular Hemoglobin 28.1, Mean Corpuscular Hemoglobin Concent 31.2L, Red Cell Distribution Width 15.2H, Platelet Count 255, Mean Platelet Volume 7.3, Neutrophils (%) (Auto) 81.0H, Lymphocytes (%) (Auto) 7.6L, Monocytes (%) (Auto) 9.8, Eosinophils (%) (Auto) 1.0, Basophils (%) (Auto) 0.6, Sodium Level 138, Potassium Level 4.0, Chloride Level 107, Carbon Dioxide Level 27, Anion Gap 5, Blood Urea Nitrogen 18, Creatinine 1.3, Estimat Glomerular Filtration Rate , Glucose Level 121H, Uric Acid 6.3, Calcium Level 7.9L, Phosphorus Level 2.4L, Magnesium Level 1.8, Total Bilirubin 0.4, Direct Bilirubin 0.1, Aspartate Amino Transf (AST/SGOT) 24, Alanine Aminotransferase (ALT/SGPT) 27, Alkaline Phosphatase 44L, Total Protein 6.0L, Albumin 1.9L Height (Feet): 5 Height (Inches): 6.00 Weight (Pounds): 162 General Appearance: no apparent distress, alert EENT: PERRL/EOMI, normal ENT inspection Neck: non-tender, normal alignment, supple Cardiovascular: normal peripheral pulses, regularly irregular Respiratory/Chest: chest wall non-tender, lungs clear, normal breath sounds Abdomen: normal bowel sounds, non tender, soft 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
--- NOTE | 2017-10-15 15:50 | General Progress Note ---
Assessment/Plan Status: stable Assessment/Plan 1. Leukopenia, severe. Likely leukopenia secondary to splenomegaly and cirrhosis --> Hepatitis and human immunodeficiency virus are both negative. --> Ultrasound of the abdomen shows nodular contour of the liver. --> Tumor markers pending, specifically afp --> WBC improving. 2. Anemia due to underlying chronic disease, appears to be stable. --> Anemia w/u has been reviewed, will trend daily. --> Hgb goal >7 3. Coagulopathy, likely related to underlying cirrhosis of the liver. --> give vit k if inr >2 and/or bleeding 4. Hyperkalemia, given Kayexalate, currently improved. 5. Biventricular failure with severe pulmonary hypertension. The patient is seen by Cardiology. 6. Ascites, status post paracentesis. The time the note was entered does not necessarily correspond to the time the patient was seen. Subjective Date patient seen: Oct 15, 2017 ROS Limited/Unobtainable: Yes Hematologic/Lymphatic: Reports: anemia Allergies: Coded Allergies: No Known Allergies (Unverified , 08/30/17) All Systems: reviewed and negative except above Subjective Pt awake and alert. No acute events. Pt refusing care. DC planning. Objective Last 24 Hour Vital Signs Date Time Temp Pulse Resp B/P (MAP) Pulse Ox O2 Delivery O2 Flow Rate FiO2 10/15/17 12:00 99 10/15/17 12:00 97.8 95 20 100/59 (73) 98 97.8 10/15/17 09:00 Room Air 10/15/17 08:30 102/61 10/15/17 08:00 111 10/15/17 08:00 98.8 92 20 102/61 (75) 100 98.8 10/15/17 04:00 98.3 108 24 105/65 (78) 98 98.3 10/15/17 04:00 113 10/15/17 00:00 Room Air 10/15/17 00:00 123 10/15/17 00:00 98.7 111 24 94/59 (71) 95 98.7 10/14/17 21:00 Room Air 10/14/17 20:00 104 10/14/17 20:00 99.6 96 23 90/58 (69) 95 99.6 10/14/17 17:49 85 10/14/17 16:32 98.2 86 19 95/61 (72) 98 98.2 Intake and Output 10/14/17 10/15/17 19:00 07:00 Intake Total 450 ml Output Total 350 ml 900 ml Balance 100 ml -900 ml Intake Oral 450 ml Output Urine Total 350 ml 900 ml # Voids 1 # Bowel Movements 2 4 Laboratory Tests 10/15/17 09:25: White Blood Count 7.6, Red Blood Count 3.11L, Hemoglobin 8.8L, Hematocrit 28.0L , Mean Corpuscular Volume 90, Mean Corpuscular Hemoglobin 28.1, Mean Corpuscular Hemoglobin Concent 31.2L, Red Cell Distribution Width 15.2H, Platelet Count 255, Mean Platelet Volume 7.3, Neutrophils (%) (Auto) 81.0H, Lymphocytes (%) (Auto) 7.6L, Monocytes (%) (Auto) 9.8, Eosinophils (%) (Auto) 1.0, Basophils (%) (Auto) 0.6, Sodium Level 138, Potassium Level 4.0, Chloride Level 107, Carbon Dioxide Level 27, Anion Gap 5, Blood Urea Nitrogen 18, Creatinine 1.3, Estimat Glomerular Filtration Rate , Glucose Level 121H, Uric Acid 6.3, Calcium Level 7.9L, Phosphorus Level 2.4L, Magnesium Level 1.8, Total Bilirubin 0.4, Direct Bilirubin 0.1, Aspartate Amino Transf (AST/SGOT) 24, Alanine Aminotransferase (ALT/SGPT) 27, Alkaline Phosphatase 44L, Total Protein 6.0L, Albumin 1.9L Height (Feet): 5 Height (Inches): 6.00 Weight (Pounds): 162 General Appearance: no apparent distress, alert EENT: PERRL/EOMI Neck: normal alignment Cardiovascular: irregularly irregular Respiratory/Chest: no respiratory distress Abdomen: normal bowel sounds, soft Christiano Hoffmann MD Oct 15, 2017 15:50
[2017-10-15 16:00] VITALS: BP 104/57
--- NOTE | 2017-10-15 17:10 | Infectious Diseases Prog Note ---
Assessment/Plan Assessment/Plan A) 1) klebsiella peritonitis 2) ? uti, + ua 3) cirrhosis, chf, anemia, leukopenia, af, ron, ckd 4) allergies - negative, sh-+etoh, fh-nc, mar noted 5) d/w RN P) 1) rocephin plus flagyl 2) monitor labs 3) d/w Valerie Lester NP 4) can discharge on ceftin plus flagyl x 1 week (avoid cipro secondary to arrhythmia risk) Subjective Constitutional: Denies: fever HEENT: Denies: congestion Respiratory: Denies: shortness of breath Cardiovascular: Denies: chest pain Gastrointestinal/Abdominal: Denies: nausea, vomiting Genitourinary: Denies: dysuria, hematuria Neurologic: Denies: headache Psychiatric: Denies: depression Skin: Denies: rash Hematologic: Denies: bleeding Musculoskeletal: Denies: pain Allergies: Coded Allergies: No Known Allergies (Unverified , 08/30/17) Objective Vital Signs Last 24 Hour Vital Signs Date Time Temp Pulse Resp B/P (MAP) Pulse Ox O2 Delivery O2 Flow Rate FiO2 10/15/17 16:00 98.3 94 20 104/57 (73) 100 98.3 10/15/17 12:00 99 10/15/17 12:00 97.8 95 20 100/59 (73) 98 97.8 10/15/17 09:00 Room Air 10/15/17 08:30 102/61 10/15/17 08:00 111 10/15/17 08:00 98.8 92 20 102/61 (75) 100 98.8 10/15/17 04:00 98.3 108 24 105/65 (78) 98 98.3 10/15/17 04:00 113 10/15/17 00:00 Room Air 10/15/17 00:00 123 10/15/17 00:00 98.7 111 24 94/59 (71) 95 98.7 10/14/17 21:00 Room Air 10/14/17 20:00 104 10/14/17 20:00 99.6 96 23 90/58 (69) 95 99.6 10/14/17 17:49 85 Height (Feet): 5 Height (Inches): 6.00 Weight (Pounds): 162 General Appearance: no acute distress HEENT: normocephalic, atraumatic, anicteric, mucous membranes moist Respiratory/Chest: lungs clear, normal breath sounds, no respiratory distress, no accessory muscle use Cardiovascular: normal rate, regular rhythm, no gallop/murmur, no JVD Abdomen: normal bowel sounds, soft, non tender, no organomegaly, non distended Genitourinary: other - no yates Extremities: no cyanosis Skin: no rash Neurologic/Psychiatric: 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 Correlate for history of cirrhosis. * Gallbladder sludge versus artifact. No gallbladder wall thickening or pericholecystic fluid. * Mild somewhat complex ascites. * Left-sided cyst with a possible thin septation. Recommend follow-up ultrasound in within 6 months to assess for interval change. * Increased echogenicity of the bilateral kidneys. Correlate for medical renal disease. * Bladder wall thickening with possible debris in the bladder. Correlate with urinalysis and urine cytology. Chest x-ray - nad, report noted Microbiology Date/Time Source Procedure Growth Status 10/07/17 15:30 Ascities Fluid Gram Stain - Final Complete 10/07/17 15:30 Body Fluid Culture - Final Klebsiella Pneumoniae Complete 10/07/17 14:10 Nasal Nares MRSA Culture - Final NO METHICILLIN RESISTANT STAPH AUREUS... Complete 10/14/17 01:00 Stool WBC Smear - Final Complete 10/12/17 22:00 Urine,Clean Catch Urine Culture - Final NO GROWTH AFTER 48 HOURS Complete 10/07/17 14:10 Rectum VRE Culture - Final NO VANCOMYCIN RESISTANT ENTEROCOCCUS ... Complete Microbiology Date/Time Source Procedure Growth Status 10/14/17 01:00 Stool WBC Smear - Final Complete 10/14/17 01:00 Stool Clostridium difficile Toxin Assay - Final Complete 10/12/17 22:00 Urine,Clean Catch Urine Culture - Final NO GROWTH AFTER 48 HOURS Complete Laboratory Tests Test 10/15/17 09:25 White Blood Count 7.6 K/UL (4.8-10.8) Red Blood Count 3.11 M/UL (4.70-6.10) L Hemoglobin 8.8 G/DL (14.2-18.0) L Hematocrit 28.0 % (42.0-52.0) L Mean Corpuscular Volume 90 FL (80-99) Mean Corpuscular Hemoglobin 28.1 PG (27.0-31.0) Mean Corpuscular Hemoglobin Concent 31.2 G/DL (32.0-36.0) L Red Cell Distribution Width 15.2 % (11.6-14.8) H Platelet Count 255 K/UL (150-450) Mean Platelet Volume 7.3 FL (6.5-10.1) Neutrophils (%) (Auto) 81.0 % (45.0-75.0) H Lymphocytes (%) (Auto) 7.6 % (20.0-45.0) L Monocytes (%) (Auto) 9.8 % (1.0-10.0) Eosinophils (%) (Auto) 1.0 % (0.0-3.0) Basophils (%) (Auto) 0.6 % (0.0-2.0) Sodium Level 138 MMOL/L (136-145) Potassium Level 4.0 MMOL/L (3.5-5.1) Chloride Level 107 MMOL/L (98-107) Carbon Dioxide Level 27 MMOL/L (21-32) Anion Gap 5 mmol/L (5-15) Blood Urea Nitrogen 18 mg/dL (7-18) Creatinine 1.3 MG/DL (0.55-1.30) Estimat Glomerular Filtration Rate mL/min (>60) Glucose Level 121 MG/DL (74-106) H Uric Acid 6.3 MG/DL (2.6-7.2) Calcium Level 7.9 MG/DL (8.5-10.1) L Phosphorus Level 2.4 MG/DL (2.5-4.9) L Magnesium Level 1.8 MG/DL (1.8-2.4) Total Bilirubin 0.4 MG/DL (0.2-1.0) Direct Bilirubin 0.1 MG/DL (0.0-0.3) Aspartate Amino Transf (AST/SGOT) 24 U/L (15-37) Alanine Aminotransferase (ALT/SGPT) 27 U/L (12-78) Alkaline Phosphatase 44 U/L (46-116) L Total Protein 6.0 G/DL (6.4-8.2) L Albumin 1.9 G/DL (3.4-5.0) L Current Medications Medications (Trade) Dose Ordered Sig/Saul Route PRN Reason Start Time Stop Time Status Last Admin Dose Admin Ceftriaxone Sodium 1 gm/ Dextrose 110 ml @ 220 mls/hr DAILY IVPB 10/14/17 09:00 10/21/17 08:59 10/14/17 08:01 Chlorhexidine Gluconate (Sofia-Hex 2%) 1 applic DAILY@2000 TOPIC 10/08/17 20:00 11/07/17 19:59 10/14/17 22:26 Dextrose (Dextrose 50%) 25 ml STAT PRN IV Hypoglycemia 10/07/17 15:15 11/06/17 15:14 Dextrose (Dextrose 50%) 50 ml STAT PRN IV Hypoglycemia 10/07/17 15:15 11/06/17 15:14 Heparin Sodium (Porcine) (Heparin 5000 units/ml) 5,000 units EVERY 12 HOURS SUBQ 10/09/17 00:00 11/08/17 00:00 10/13/17 21:26 Losartan Potassium (Cozaar) 50 mg DAILY ORAL 10/16/17 09:00 11/14/17 08:59 Metronidazole (Flagyl) 500 mg Q8HR ORAL 10/14/17 14:00 10/21/17 13:59 10/14/17 13:34 Multivitamins (Multivitamins) 1 tab DAILY ORAL 10/09/17 09:00 11/08/17 08:59 10/15/17 08:30 Ondansetron HCl (Zofran) 4 mg Q6H PRN IVP Nausea & Vomiting 10/07/17 15:15 11/06/17 15:14 10/13/17 08:21 Spironolactone (Aldactone) 25 mg DAILY ORAL 10/12/17 09:00 11/11/17 08:59 10/15/17 08:30 Thiamine HCl (Vitamin B1) 100 mg DAILY ORAL 10/09/17 09:00 11/08/17 08:59 10/15/17 08:30 Cliff Vela MD Oct 15, 2017 17:10
[2017-10-16] MEDS ORDERED: Losartan 50mg tab ORAL SCH (09:00)
--- NOTE | 2017-10-20 13:58 | Discharge Summary ---
Discharge Summary Discharge Summary _ DATE OF ADMISSION: 10/07/2017 DATE OF DISCHARGE: 10/15/2017 REASON FOR ADMISSION: 81 years old male with past medical history of alcohol-related cirrhosis, chronic kidney disease, atrial fibrillation, cardiomyopathy, valvular heart disease, noncompliance, presented to [facility] for shortness of breath and abdominal pain for several days. Patient reported shortness of breath and bilateral lower extremity edema with worsening abdominal distention for several days. His last alcoholic drink was several days ago. He stated that he was compliant with his medication, however he did not see his primary care provider for some time. In emergency department, patient was noted to be short of breath and subsequently was placed on supplemental oxygen. . Laboratory workup revealed WBC 1.4, potassium 5.9 , hemoglobin 10.6 hematocrit 33.6 . BUN 36, creatinine 2.5. Troponin was negative. EKG revealed atrial fibrillation with rapid ventricular response. Urinalysis with pyuria and occasional bacteria. Chest x-ray revealed cardiomegaly, no acute cardiopulmonary pathology. Abdominal x-ray was nondiagnostic given the absence of bowel gas. Abdominal ultrasound revealed cirrhosis ,gallbladder sludge, possible medical renal disease, and ascites. Patient subsequently undergone paracentesis which yielded 13.6 L of ascitic fluid. Patient admitted with diagnosis of acute CHF exacerbation, atrial fibrillation with rapid ventricular response, leukopenia, possible urinary tract infection, anemia, ascites, renal failure, hyperkalemia. CONSULTANTS: shingle carrier Dr. Ramirez ID specialist Dr. Vela GI specialist admissions specialist Dr. Lewis consolidator/oncologist Dr. Hoffmann psychiatrist [facility] COURSE: Patient admitted to telemetry floor. Seal Delivery Vehicle Team Technician consulted for management of atrial fibrillation with rapid ventricular response and CHF exacerbation. Patient with a known history of alcohol-induced cardiomyopathy, previous ejection fraction was 10-15%. Echocardiogram done at this admission revealed ejection fraction of 10-15%, mild to moderate aortic regurgitation, moderate to severe mitral regurgitation and tricuspid regurgitation. Right ventricular systolic pressure of 75, consistent with severe pulmonary hypertension. According to shingle carrier, patient had alcohol-induced the heart failure and valvular heart disease. Patient was started on anti- failure regimen. Due to renal failure combination of hydralazine and isosorbide ( instead of ARB was used) as well as diuretic and beta dominguez. Cardiorenal parameters and volumes were closely monitored. Patient was not a candidate for ICD given prognosis for less than 1 year. LifeVest was ordered to use as a primary prevention and to be dispense prior to discharge. Initial troponin was negative , second and thirds troponin were minimally elevated. Levels flat t, no chest pain . Troponin elevation was likely secondary to renal disease and severe cardiomyopathy. No indication for cardiac catheterization given lack of the symptoms and objective findings of acute coronary symptoms as per shingle carrier. In addition , patient had a poor renal function and at risk for contrast nephropathy. Heart rate was controlled with amiodarone. Heart rate was controlled. Xarelto was stopped in anticipation for EGD. Antiplatelet therapy with aspirin provided , statin resumed. Seal Delivery Vehicle Team Technician recommended evaluate left ventricular function in 3 months. Renal parameters improved,subsequently hydralazine and isosorbide were discontinued . Patient started on ARB and Aldactone along with beta dominguez. Lasix was continued for elevated filling pressures. Supplemental oxygen provided as needed to keep pulse oximetry above 92%. Pulmonary toilet provided as needed. Patient declined LifeVest prior to discharge. Seal Delivery Vehicle Team Technician recommended evaluate left ventricle in 3 months. Infectious disease specialist closely followed. Ascitic fluid culture was positive for Klebsiella. Patient was on IV antibiotics as per ID specialist directions. Patient developed diarrhea. Stool for ova and parasite, stool culture, stool for C. difficile , WBC smear 2 were all negative. Antibiotic for Klebsiella peritonitis to be continued at home to complete the course as per ID specialist recommendations. Prescription provided. Physics Department Chair closely followed. According to admissions specialist patient had chronic kidney disease stage IV. Renal parameters and electrolytes were closely monitored, electrolytes corrected as needed, and nephrotoxins were avoided. Prior to discharge, potassium down to 4.0 . BUN down to 18 and creatinine down to 1.3. Per admissions specialist, patient had cardiorenal syndrome , recommended to avoid nephrotoxic. Abdominal ultrasound revealed probable septated renal cyst . Physics Department Chair recommended follow-up with renal ultrasound in 6 months GI specialist closely followed. Anemia workup revealed anemia of chronic disease and iron deficiency anemia. Patient was on the IV Venofer . Stool for occult blood was negative. Tumor markers( alpha-fetoprotein and CEA) were both negative. Hemoglobin and hematocrit were closely monitored with goal to keep hemoglobin above 7 ,no need for transfusion Hepatitis panel was negative. Diarrhea resolved. GI specialist recommended to hold GI procedure which can be done as an outpatient. Continue PPI. Xarelto resumed upon discharge. sepsis initially was hold in anticipation for EGD. Psychiatrist closely followed. Psychiatrist diagnosed patient with major depressive disorder , encephalopathy , anxiety disorder and alcohol dependency. Psychiatric medication regimen optimized as per psychiatrist. Wheel Buffer closely followed patient for leukopenia. Leukopenia was probably secondary to splenomegaly and cirrhosis. WBC trending up, prior to discharge within normal limits -7.6. Supportive care provided. Pain management provided. Patient with overall poor prognosis due to severe cardiomyopathy and noncompliance with treatment. As mentioned above, patient declined LifeVest. Patient was stable for discharge home . Follow-up with primary care provider next week. Patient was recommended to follow-up with Dr. Nascimento from [facility] as outpatient. for mitral clip procedure. FINAL DIAGNOSES: Acute systolic CHF exacerbation Atrial fibrillation with rapid ventricular response Klebsiella peritonitis Pyuria, possible UTI Leukopenia -resolved Anemia of chronic disease Iron deficiency anemia Chronic kidney disease, stage IV Cardiorenal syndrome Ascites Status post paracentesis Hyperkalemia, resolved Moderate to severe mitral regurgitation and tricuspid regurgitation Severe pulmonary hypertension Alcohol dependency Major depressive disorder Encephalopathy Anxiety disorder Septated renal cyst DISCHARGE MEDICATIONS: See Medication Reconciliation list. DISCHARGE INSTRUCTIONS: Patient discharged home. Prescriptions provided. Follow up with primary care provider and shingle carrier next week. Follow-up with Dr. Nascimento from [facility] as outpatient. I have been assigned to dictate discharge summary for this account. I was not involved in the patient's management. Jayla Roberts NP Oct 20, 2017 13:58
== END 2017-10-15 19:25 | disposition home health service (06) | DRG 194 ==
LOC: EDBD 06:13 → EMR 06:50 → 2E 09:17 → EDBEDREQ 12:19 → 2E 13:19
PROC: 0W9G3ZZ Drainage of Peritoneal Cavity, Percutaneous Approach (ICD-10-PCS; principal; 2017-10-07)
DX: I13.0 Hypertensive heart and chronic kidney disease with heart failure and stage 1 through stage 4 chronic kidney disease, or unspecified chronic kidney disease (principal); G93.40 Encephalopathy, unspecified; I47.2 Ventricular tachycardia; K65.8 Other peritonitis; N18.4 Chronic kidney disease, stage 4 (severe); N17.9 Acute kidney failure, unspecified; K70.31 Alcoholic cirrhosis of liver with ascites; I50.23 Acute on chronic systolic (congestive) heart failure; D68.4 Acquired coagulation factor deficiency; E87.5 Hyperkalemia; I27.20 Pulmonary hypertension, unspecified; I48.91 Unspecified atrial fibrillation; D50.9 Iron deficiency anemia, unspecified; F10.20 Alcohol dependence, uncomplicated; G31.84 Mild cognitive impairment of uncertain or unknown etiology; R10.9 Unspecified abdominal pain; N39.0 Urinary tract infection, site not specified; D64.9 Anemia, unspecified; Z79.01 Long term (current) use of anticoagulants; D72.819 Decreased white blood cell count, unspecified; K74.69 Other cirrhosis of liver; D63.8 Anemia in other chronic diseases classified elsewhere; F41.9 Anxiety disorder, unspecified; F32.9 Major depressive disorder, single episode, unspecified; B96.1 Klebsiella pneumoniae [K. pneumoniae] as the cause of diseases classified elsewhere; I34.0 Nonrheumatic mitral (valve) insufficiency; N28.1 Cyst of kidney, acquired; I36.1 Nonrheumatic tricuspid (valve) insufficiency; I35.1 Nonrheumatic aortic (valve) insufficiency
CPT/HCPCS: 36415; 36600; 71045; 74018; 76700; 76942; 80048; 80053; 80061; 80076; 81003; 82105; 82140; 82270; 82378; 82550; 82607; 82728; 82746; 82803; 83036; 83540; 83550; 83690; 83735; 83880; 84100; 84132; 84443; 84484; 84550; 85007; 85025; 85044; 85610; 85730; 86703; 86705; 86709; 86803; 86850; 86900; 86901; 87045; 87070; 87081; 87086; 87181; 87205; 87324; 87340; 88104; 93005; 93306; 94664; 99291; C9399; J2405; J8499

== ENCOUNTER 2017-11-04 11:12 | Inpatient (IN) | payer MEDICAID ==
[~2017-11-04] VITALS: Ht 170.2 cm; Wt 77.8 kg
[~2017-11-04 11:12] MED LIST changes: +ALDACTONE25 MG ORAL; +CEFUROXIME500 MG PO; +COZAAR50 MG ORAL; +FLAGYL500 MG ORAL; +MULTIVITAMINS1 EAC2 ORAL; +THIAMINE HCL100 MG ORAL; +UNOBMED
[2017-11-04] MEDS ORDERED: dilTIAZem HCl 25mg/5ml Inj IVP ONE (11:30)
[2017-11-04 11:45] LABS: BASOPHILS % (AUTO) 0.8 % (0.0-2.0); EOSINOPHILS % (AUTO) 0.4 % (0.0-3.0); HEMATOCRIT 26.4 % (42.0-52.0); HEMOGLOBIN 8.1 G/DL (14.2-18.0); LYMPHOCYTES % (AUTO) 23.4 % (20.0-45.0); MEAN CORPUSCULAR VOLUME 88 FL (80-99); MONOCYTES % (AUTO) 7.9 % (1.0-10.0); NEUTROPHILS % (AUTO) 67.6 % (45.0-75.0); PLATELET COUNT 339 K/UL (150-450); RED BLOOD COUNT 2.99 M/UL (4.70-6.10); RED CELL DISTRIBUTION WIDTH 16.7 % (11.6-14.8); WHITE BLOOD COUNT 4.3 K/UL (4.8-10.8)
--- NOTE | 2017-11-04 11:53 | Diagnostic Imaging Report ---
Indication: Dyspnea Technique: One view of the chest Comparison: 10/07/2017 Findings: The heart is enlarged. There is a small left-sided pleural effusion. This is a new finding since the previous study. The lungs are clear. Impression: Cardiomegaly Small left pleural effusion
[2017-11-04 12:00] VITALS: BP 100/68
[2017-11-04 12:24] LABS: ANION GAP 14 mmol/L (5-15); BLOOD UREA NITROGEN 29 mg/dL (7-18); CALCIUM 8.5 MG/DL (8.5-10.1); CARBON DIOXIDE 18 MMOL/L (21-32); CHLORIDE 107 MMOL/L (98-107); CREATININE 2.5 MG/DL (0.55-1.30); POTASSIUM 4.7 MMOL/L (3.5-5.1); SODIUM 139 MMOL/L (136-145)
[2017-11-04] MEDS ORDERED: Carvedilol 25mg Tab ORAL SCH (12:30)
[2017-11-04] MEDS ORDERED: Carvedilol 25mg Tab ORAL ONE (12:30)
[2017-11-04 12:34] LABS: ALANINE AMINOTRANSFERASE 25 U/L (12-78); ALBUMIN 2.5 G/DL (3.4-5.0); ALBUMIN/GLOBULIN RATIO 0.5 (1.0-2.7); ALKALINE PHOSPHATASE 134 U/L (46-116); ASPARTATE AMINO TRANSFERASE 45 U/L (15-37); BILIRUBIN,TOTAL 0.9 MG/DL (0.2-1.0)
[2017-11-04 14:00] VITALS: BP 87/58
[2017-11-04 16:15] VITALS: BP 81/57
--- NOTE | 2017-11-04 16:54 | Emergency Room Report ---
History of Present Illness General Chief Complaint: Chest Pain Source: Patient, Medical Record Present Illness HPI Mr. Garcia is an 81-year-old male with history of atrial fibrillation cardiomyopathy and cirrhosis on Xareltoe and carvedilol who presents with palpitations since last night. He feels a thumping sensation in his chest without discrete pain. He's had worsening shortness of breath. He recently had a paracentesis for abdominal distention. He has chronic leg swelling. 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 Nursing Documentation-PMH Hx Cardiac Problems: Yes - CHF, Afib, HTN, Anemia, Hx Hypertension: Yes Hx Cancer: No Hx Gastrointestinal Problems: Yes - Ascites, Cirrhosis, UTI Hx Neurological Problems: No Review of Systems Constitutional: Denies: fever, malaise Cardiovascular: Reports: edema, palpitations; Denies: chest pain Gastrointestinal: Reports: other - abdominal distention mild discomfort All Other Systems: negative except mentioned in HPI Physical Exam Vital Signs Date Time Temp Pulse Resp B/P (MAP) Pulse Ox O2 Delivery O2 Flow Rate FiO2 11/04/17 11:09 97.8 140 35 115/80 100 Room Air 97.9 Sp02 EP Interpretation: reviewed, normal General Appearance: no apparent distress, alert, GCS 15, non-toxic, other - pleasant articulate speaking full sentences without difficulty Head: normocephalic, atraumatic Eyes: bilateral eye normal inspection ENT: hearing grossly normal, normal pharynx, no angioedema, normal voice Neck: full range of motion, supple/symm/no masses Respiratory: chest non-tender, lungs clear, normal breath sounds, speaking full sentences Cardiovascular #1: tachycardia, irregularly irregular, edema - severe edema with severe venous stasis changes severe lichenification Cardiovascular #2: 2+ carotid (R), 2+ carotid (L), 2+ radial (R), 2+ radial (L) , 2+ dorsalis pedis (R), 2+ dorsalis pedis (L) Gastrointestinal: non tender, soft, no guarding, no rebound, other - mild distention Rectal: deferred Genitourinary: normal inspection, no CVA tenderness Neurologic: alert, oriented x3, responsive, speech normal Psychiatric: judgement/insight normal, memory normal, mood/affect normal Skin: well hydrated, other - see above Lymphatic: no adenopathy Medical Decision Making Diagnostic Impression: Primary Impression: Atrial fibrillation with RVR Additional Impression: Systolic and diastolic CHF, acute ER Course Mr. Garcia received IV diltiazem bolus which did improve heart rate. Patient also received by mouth carvedilol his home medication. Blood pressure had been normal with persistent irregular atrial fibrillation rhythm. However during the course of care he developed hypotension believed to be iatrogenic with medications provided. he is awake and asymptomatic. I spoke with Dr. Pako Martinez for acceptance to stepdown unit on behalf of Dr. Cabrera who previously admitted patient. I did review previous discharge summary. 40 minutes of critical care time excluding procedures were used in the care of the patient impression: Anemia attributed to cirrhosis and chronic disease, hypoalbuminemia due to cirrhosis and chronic kidney disease Lab Results Impression Labs Test 11/04/17 11:30 White Blood Count 4.3 K/UL (4.8-10.8) Red Blood Count 2.99 M/UL (4.70-6.10) Hemoglobin 8.1 G/DL (14.2-18.0) Hematocrit 26.4 % (42.0-52.0) Mean Corpuscular Volume 88 FL (80-99) Mean Corpuscular Hemoglobin 27.2 PG (27.0-31.0) Mean Corpuscular Hemoglobin Concent 30.8 G/DL (32.0-36.0) Red Cell Distribution Width 16.7 % (11.6-14.8) Platelet Count 339 K/UL (150-450) Mean Platelet Volume 6.2 FL (6.5-10.1) Neutrophils (%) (Auto) 67.6 % (45.0-75.0) Lymphocytes (%) (Auto) 23.4 % (20.0-45.0) Monocytes (%) (Auto) 7.9 % (1.0-10.0) Eosinophils (%) (Auto) 0.4 % (0.0-3.0) Basophils (%) (Auto) 0.8 % (0.0-2.0) Sodium Level 139 MMOL/L (136-145) Potassium Level 4.7 MMOL/L (3.5-5.1) Chloride Level 107 MMOL/L (98-107) Carbon Dioxide Level 18 MMOL/L (21-32) Anion Gap 14 mmol/L (5-15) Blood Urea Nitrogen 29 mg/dL (7-18) Creatinine 2.5 MG/DL (0.55-1.30) Estimat Glomerular Filtration Rate mL/min (>60) Glucose Level 61 MG/DL (74-106) Calcium Level 8.5 MG/DL (8.5-10.1) Total Bilirubin 0.9 MG/DL (0.2-1.0) Aspartate Amino Transf (AST/SGOT) 45 U/L (15-37) Alanine Aminotransferase (ALT/SGPT) 25 U/L (12-78) Alkaline Phosphatase 134 U/L (46-116) Troponin I 0.046 ng/mL (0.000-0.056) Pro-B-Type Natriuretic Peptide > 94072 pg/mL (0-125) Total Protein 7.5 G/DL (6.4-8.2) Albumin 2.5 G/DL (3.4-5.0) Globulin 5.0 g/dL Albumin/Globulin Ratio 0.5 (1.0-2.7) EKG Diagnostic Results EKG Time: 11:10 EP Interpretation: atrial fibrillation RVR Rate: tachycardiac - 1 30 bpm Rhythm: other - fibrillation ST Segments: no acute changes Other Impression left axis deviation no ST elevation anterior Q waves with poor R-wave progression ASA given to the pt in ED: No Chest X-Ray Diagnostic Results Chest X-Ray Diagnostic Results : Chest X-Ray Ordered: Yes # of Views/Limited/Complete: 1 View Indication: Shortness of Breath EP Interpretation: Yes PA Xray: Interpretation reviewed, and agrees with findings. Interpretation: other Impression: Other - pleural effusion Electronically Signed by: This image has been electronically signed by Dr. Adriana Judge Last Vital Signs Date Time Temp Pulse Resp B/P (MAP) Pulse Ox O2 Delivery O2 Flow Rate FiO2 11/04/17 16:27 97.9 67 12 87/58 100 Room Air 97.9 Referrals: NOT CHOSEN IPA/,REFERRING (PCP) ADRIANA JUDGE Nov 04, 2017 16:54
--- NOTE | 2017-11-04 17:29 | History and Physical ---
History of Present Illness General Date patient seen: Nov 04, 2017 Time patient seen: 17:50 Reason for Hospitalization: Chest Pain Present Illness HPI 81 yo man with cirrhosis admitted for atrial fibrillation with RVR In the ED he was given extra carvedilol and diltiazem BP dropped to 80's Patient denies chest pain or significant dyspnea +lightheadness Past Medical and Surgical History: as above. In addition: (1) Iron deficiency (2) Anemia (3) Cirrhosis (4) Chronic systolic and diastolic CHF (congestive heart failure) (5) Leukopenia (6) Coagulopathy (7) Renal cyst (8) CKD (chronic kidney disease) (9) 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 hypertension (10) Severe mitral regurgitation (11) Diarrhea (12) Ventricular tachycardia (13) Hypotension Family History: Reviewed by me; not pertinent for this encounter Social History: No current EtOH/tobacco Allergies: Coded Allergies: No Known Allergies (Unverified , 08/30/17) Medication History Scheduled Carvedilol (Coreg), 12.5 MG ORAL EVERY 12 HOURS Furosemide* (Lasix*), 80 MG ORAL DAILY, (Reported) Hydralazine Hcl* (Hydralazine Hcl*), 50 MG ORAL EVERY 8 HOURS, (Reported) Lisinopril (Lisinopril*), 5 MG ORAL DAILY, (Reported) Multivitamins* (Multivitamins*), 1 TAB ORAL DAILY Rivaroxaban (Xarelto*), 15 MG ORAL HS, (Reported) Spironolactone (Aldactone), 25 MG ORAL DAILY Thiamine Hcl (Vitamin B1*), 100 MG ORAL DAILY Miscellaneous Medications Unable to Obtain Medications (Unable To Obtain Meds), (Reported) Discontinued Medications Carvedilol* (Carvedilol*), 25 MG ORAL EVERY 12 HOURS, (Reported) Discontinued Reason: Medication dose changed Cefuroxime Axetil* (Cefuroxime*), 500 MG PO Q12HR Discontinued Reason: Therapy completed Losartan Potassium* (Cozaar*), 50 MG ORAL DAILY Discontinued Reason: MD discontinued med Metronidazole* (Flagyl*), 500 MG ORAL Q8HR Discontinued Reason: Therapy completed Patient History History Provided By: Patient, Medical Record, EMS, PMD Healthcare decision maker N Resuscitation status Advanced Directive on File Review of Systems Constitutional: Reports: malaise, weakness Eye: Reports: no symptoms ENT: Reports: no symptoms Respiratory: Reports: shortness of breath Cardiovascular: Reports: palpitations Gastrointestinal: Reports: no symptoms Genitourinary: Reports: no symptoms Musculoskeletal: Reports: no symptoms Skin: Reports: no symptoms Psychiatric: Reports: no symptoms Neurological: Reports: no symptoms Endocrine: Reports: no symptoms Hematologic/Lymphatic: Reports: no symptoms All Other Systems: negative except mentioned in HPI Physical Exam General Appearance: WD/WN, mild distress Lines, tubes and drains: peripheral HEENT: normocephalic, atraumatic, anicteric, mucous membranes moist, PERRL, EOMI, pharynx normal, supple, no JVD Neck: non-tender, normal alignment, supple Respiratory/Chest: chest wall non-tender, decreased breath sounds Breasts: no masses Cardiovascular/Chest: normal peripheral pulses, tachycardia, irregularly irregular Abdomen: normal bowel sounds, non tender, soft Extremities: normal range of motion, non-tender Skin Exam: normal pigmentation 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 normal Lymphatic: anterior cervical, posterior cervical (L) Musculoskeletal: atrophy Last 24 Hour Vital Signs Date Time Temp Pulse Resp B/P (MAP) Pulse Ox O2 Delivery O2 Flow Rate FiO2 11/04/17 16:27 97.9 67 12 87/58 100 Room Air 97.9 11/04/17 16:15 97.4 71 18 81/57 (65) 94 97.4 11/04/17 14:00 97.9 67 12 87/58 100 Room Air 97.9 11/04/17 12:24 86 101/69 11/04/17 12:00 80 12 100/68 100 Room Air 11/04/17 11:34 125 115/80 11/04/17 11:31 Room Air 11/04/17 11:30 93 101/69 11/04/17 11:09 97.8 140 35 115/80 100 Room Air 97.9 Laboratory Tests Test 11/04/17 11:30 White Blood Count 4.3 K/UL (4.8-10.8) L Red Blood Count 2.99 M/UL (4.70-6.10) L Hemoglobin 8.1 G/DL (14.2-18.0) L Hematocrit 26.4 % (42.0-52.0) L Mean Corpuscular Volume 88 FL (80-99) Mean Corpuscular Hemoglobin 27.2 PG (27.0-31.0) Mean Corpuscular Hemoglobin Concent 30.8 G/DL (32.0-36.0) L Red Cell Distribution Width 16.7 % (11.6-14.8) H Platelet Count 339 K/UL (150-450) Mean Platelet Volume 6.2 FL (6.5-10.1) L Neutrophils (%) (Auto) 67.6 % (45.0-75.0) Lymphocytes (%) (Auto) 23.4 % (20.0-45.0) Monocytes (%) (Auto) 7.9 % (1.0-10.0) Eosinophils (%) (Auto) 0.4 % (0.0-3.0) Basophils (%) (Auto) 0.8 % (0.0-2.0) Sodium Level 139 MMOL/L (136-145) Potassium Level 4.7 MMOL/L (3.5-5.1) Chloride Level 107 MMOL/L (98-107) Carbon Dioxide Level 18 MMOL/L (21-32) L Anion Gap 14 mmol/L (5-15) Blood Urea Nitrogen 29 mg/dL (7-18) H Creatinine 2.5 MG/DL (0.55-1.30) H Estimat Glomerular Filtration Rate mL/min (>60) Glucose Level 61 MG/DL (74-106) L Calcium Level 8.5 MG/DL (8.5-10.1) Total Bilirubin 0.9 MG/DL (0.2-1.0) Aspartate Amino Transf (AST/SGOT) 45 U/L (15-37) H Alanine Aminotransferase (ALT/SGPT) 25 U/L (12-78) Alkaline Phosphatase 134 U/L (46-116) H Troponin I 0.046 ng/mL (0.000-0.056) Pro-B-Type Natriuretic Peptide > 77090 pg/mL (0-125) H Total Protein 7.5 G/DL (6.4-8.2) Albumin 2.5 G/DL (3.4-5.0) L Globulin 5.0 g/dL Albumin/Globulin Ratio 0.5 (1.0-2.7) L Height (Feet): 5 Height (Inches): 7.00 Weight (Pounds): 160 Medications Current Medications Medications (Trade) Dose Ordered Sig/Saul Route PRN Reason Start Time Stop Time Status Last Admin Dose Admin Diltiazem HCl 125 mg/Sodium Chloride 125 ml @ 5 mls/hr ONCE ONCE IV 11/04/17 11:30 11/05/17 12:29 Assessment/Plan Status: deteriorating Status Narrative 81 yo man with atrial fibrillation with rapid ventricular response and hypotension Assessment/Plan Admit to inpatient Close cardiac monitoring given afib with RVR continue carvedilol Cardiology consult in AM replete lykisha trend troponin/EKG's f/u CXR anticoagulation DVT Prophylaxis: SCD's, heparin Code Status: Full Hospital Classification declaration: Based on this initial evaluation and depending on the patient's clinical course I anticipate that this patient will require hospitalization for at least 2-3 days Disposition: Once the patient is stable to leave the hospital I anticipate the patient will likely be discharged to the following environment: Home I spent 70 minutes on this patients car and 36 minutes was dedicated to counseling and care coordination Time of note may not reflect time of encounter Marshall Martinez M.D. Nov 04, 2017 17:29
[2017-11-04 20:00] VITALS: BP 84/58
[2017-11-04] MEDS: Carvedilol 25mg Tab ORAL SCH (20:02)
[2017-11-04] MEDS: Heparin 5000 units/ml inj SUBQ SCH ×2 (20:09→20:13)
[2017-11-04] MEDS: HydrALAZINE 50mg tab ORAL SCH (21:26)
[2017-11-05] VITALS: BP 92/64
[2017-11-05 04:00] VITALS: BP 84/66
[2017-11-05] MEDS: HydrALAZINE 50mg tab ORAL SCH (05:05)
[2017-11-05 08:00] VITALS: BP 89/66
[2017-11-05] MEDS: Carvedilol 25mg Tab ORAL SCH (08:53)
[2017-11-05] MEDS: Heparin 5000 units/ml inj SUBQ SCH ×2 (08:54→13:23)
[2017-11-05] MEDS ORDERED: Lisinopril 2.5mg tab ORAL SCH (09:00)
[2017-11-05] MEDS ORDERED: Furosemide 80mg tab ORAL SCH (09:00)
[2017-11-05 10:56] LABS: BASOPHILS % (AUTO) 0.6 % (0.0-2.0); EOSINOPHILS % (AUTO) 0.8 % (0.0-3.0); HEMATOCRIT 26.7 % (42.0-52.0); HEMOGLOBIN 8.3 G/DL (14.2-18.0); LYMPHOCYTES % (AUTO) 20.5 % (20.0-45.0); MEAN CORPUSCULAR VOLUME 89 FL (80-99); MONOCYTES % (AUTO) 8.9 % (1.0-10.0); NEUTROPHILS % (AUTO) 69.1 % (45.0-75.0); PLATELET COUNT 330 K/UL (150-450); RED BLOOD COUNT 3.02 M/UL (4.70-6.10); RED CELL DISTRIBUTION WIDTH 17.7 % (11.6-14.8); WHITE BLOOD COUNT 4.5 K/UL (4.8-10.8)
[2017-11-05 10:58] VITALS: BP 95/56
[2017-11-05 11:00] LABS: ANION GAP 11 mmol/L (5-15); BLOOD UREA NITROGEN 40 mg/dL (7-18); CALCIUM 8.2 MG/DL (8.5-10.1); CARBON DIOXIDE 21 MMOL/L (21-32); CHLORIDE 107 MMOL/L (98-107); CREATININE 2.9 MG/DL (0.55-1.30); POTASSIUM 5.1 MMOL/L (3.5-5.1); SODIUM 139 MMOL/L (136-145)
--- NOTE | 2017-11-05 11:15 | Consultation ---
History of Present Illness General Date patient seen: Nov 05, 2017 Chief Complaint: Chest Pain Present Illness HPI 81-year-old male with history of atrial fibrillation cardiomyopathy and cirrhosis on Xareltoe and carvedilol who presents with palpitations since last night. the pt is refusing Heparin. During the eval he stated that he didn't want Heparin. I explained that he stated that he understood that if he refuses heparin he may or have stroke. The pt perseverated that he didn't want heparin. Allergies: Coded Allergies: No Known Allergies (Unverified , 08/30/17) Medication History Scheduled Carvedilol* (Carvedilol*), 25 MG ORAL EVERY 12 HOURS, (Reported) Cefuroxime Axetil* (Cefuroxime*), 500 MG PO Q12HR Furosemide* (Lasix*), 80 MG ORAL DAILY, (Reported) Hydralazine Hcl* (Hydralazine Hcl*), 50 MG ORAL EVERY 8 HOURS, (Reported) Lisinopril (Lisinopril*), 5 MG ORAL DAILY, (Reported) Losartan Potassium* (Cozaar*), 50 MG ORAL DAILY Metronidazole* (Flagyl*), 500 MG ORAL Q8HR Multivitamins* (Multivitamins*), 1 TAB ORAL DAILY Rivaroxaban (Xarelto*), 15 MG ORAL HS, (Reported) Spironolactone (Aldactone), 25 MG ORAL DAILY Thiamine Hcl (Vitamin B1*), 100 MG ORAL DAILY Miscellaneous Medications Unable to Obtain Medications (Unable To Obtain Meds), (Reported) Patient History History Provided By: Medical Record, PMD Healthcare decision maker N Resuscitation status Full Code Advanced Directive on File Past Medical/Surgical History Past Medical/Surgical History: (1) Iron deficiency (2) Anemia (3) Cirrhosis (4) Acute exacerbation of CHF (congestive heart failure) (5) Leukopenia (6) Coagulopathy (7) Renal cyst (8) CKD (chronic kidney disease) (9) 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 hypertension (10) Severe mitral regurgitation (11) Diarrhea (12) Ventricular tachycardia (13) Hypotension (14) Systolic and diastolic CHF, acute (15) Atrial fibrillation with RVR (16) Afib (17) Atrial fibrillation with RVR Review of Systems Psychiatric: Reports: prior hx, anxiety, depressed feelings Physical Exam General Appearance: no apparent distress, alert Neurologic: oriented x 3, responsive, depressed affect Last 24 Hour Vital Signs Date Time Temp Pulse Resp B/P (MAP) Pulse Ox O2 Delivery O2 Flow Rate FiO2 11/05/17 10:58 87 18 95/56 (69) 98 11/05/17 08:53 89/66 11/05/17 08:53 79 89/66 11/05/17 08:00 87 11/05/17 08:00 98.7 79 17 89/66 (74) 97 98.7 11/05/17 08:00 Room Air 11/05/17 05:05 86/69 11/05/17 04:00 Room Air 11/05/17 04:00 98.4 82 16 84/66 (72) 97 98.4 11/05/17 04:00 73 11/05/17 00:00 Room Air 11/05/17 00:00 69 11/05/17 00:00 98.1 70 16 92/64 (73) 96 98.1 11/04/17 21:26 88/69 11/04/17 20:02 69 84/58 11/04/17 20:00 Room Air 11/04/17 20:00 68 11/04/17 20:00 97.5 73 18 84/58 (67) 94 97.5 11/04/17 17:28 Room Air 11/04/17 16:30 68 11/04/17 16:27 97.9 67 12 87/58 100 Room Air 97.9 11/04/17 16:15 97.4 71 18 81/57 (65) 94 97.4 11/04/17 14:00 97.9 67 12 87/58 100 Room Air 97.9 11/04/17 12:24 86 101/69 11/04/17 12:00 80 12 100/68 100 Room Air 11/04/17 11:34 125 115/80 11/04/17 11:31 Room Air 11/04/17 11:30 93 101/69 Intake and Output 11/04/17 11/05/17 19:00 07:00 Intake Total 240 ml Output Total 175 ml Balance 240 ml -175 ml Intake Oral 240 ml Output Urine Total 175 ml # Voids 65 # Bowel Movements 1 Laboratory Tests Test 11/04/17 11:30 11/05/17 10:35 White Blood Count 4.3 K/UL (4.8-10.8) L 4.5 K/UL (4.8-10.8) L Red Blood Count 2.99 M/UL (4.70-6.10) L 3.02 M/UL (4.70-6.10) L Hemoglobin 8.1 G/DL (14.2-18.0) L 8.3 G/DL (14.2-18.0) L Hematocrit 26.4 % (42.0-52.0) L 26.7 % (42.0-52.0) L Mean Corpuscular Volume 88 FL (80-99) 89 FL (80-99) Mean Corpuscular Hemoglobin 27.2 PG (27.0-31.0) 27.4 PG (27.0-31.0) Mean Corpuscular Hemoglobin Concent 30.8 G/DL (32.0-36.0) L 30.9 G/DL (32.0-36.0) L Red Cell Distribution Width 16.7 % (11.6-14.8) H 17.7 % (11.6-14.8) H Platelet Count 339 K/UL (150-450) 330 K/UL (150-450) Mean Platelet Volume 6.2 FL (6.5-10.1) L 7.9 FL (6.5-10.1) Neutrophils (%) (Auto) 67.6 % (45.0-75.0) 69.1 % (45.0-75.0) Lymphocytes (%) (Auto) 23.4 % (20.0-45.0) 20.5 % (20.0-45.0) Monocytes (%) (Auto) 7.9 % (1.0-10.0) 8.9 % (1.0-10.0) Eosinophils (%) (Auto) 0.4 % (0.0-3.0) 0.8 % (0.0-3.0) Basophils (%) (Auto) 0.8 % (0.0-2.0) 0.6 % (0.0-2.0) Sodium Level 139 MMOL/L (136-145) 139 MMOL/L (136-145) Potassium Level 4.7 MMOL/L (3.5-5.1) 5.1 MMOL/L (3.5-5.1) Chloride Level 107 MMOL/L (98-107) 107 MMOL/L (98-107) Carbon Dioxide Level 18 MMOL/L (21-32) L 21 MMOL/L (21-32) Anion Gap 14 mmol/L (5-15) 11 mmol/L (5-15) Blood Urea Nitrogen 29 mg/dL (7-18) H 40 mg/dL (7-18) H Creatinine 2.5 MG/DL (0.55-1.30) H 2.9 MG/DL (0.55-1.30) H Estimat Glomerular Filtration Rate mL/min (>60) mL/min (>60) Glucose Level 61 MG/DL (74-106) L 130 MG/DL (74-106) H Calcium Level 8.5 MG/DL (8.5-10.1) 8.2 MG/DL (8.5-10.1) L Total Bilirubin 0.9 MG/DL (0.2-1.0) Aspartate Amino Transf (AST/SGOT) 45 U/L (15-37) H Alanine Aminotransferase (ALT/SGPT) 25 U/L (12-78) Alkaline Phosphatase 134 U/L (46-116) H Troponin I 0.046 ng/mL (0.000-0.056) Pro-B-Type Natriuretic Peptide > 52480 pg/mL (0-125) H Total Protein 7.5 G/DL (6.4-8.2) Albumin 2.5 G/DL (3.4-5.0) L Globulin 5.0 g/dL Albumin/Globulin Ratio 0.5 (1.0-2.7) L Microbiology Date/Time Source Procedure Growth Status 11/04/17 12:15 Rectum - Preliminary Resulted Height (Feet): 5 Height (Inches): 7.00 Weight (Pounds): 171 Medications Current Medications Medications (Trade) Dose Ordered Sig/Saul Route PRN Reason Start Time Stop Time Status Last Admin Dose Admin Carvedilol (Coreg) 25 mg EVERY 12 HOURS ORAL 11/04/17 21:00 12/04/17 20:59 Diltiazem HCl 125 mg/Sodium Chloride 125 ml @ 5 mls/hr ONCE ONCE IV 11/04/17 11:30 11/05/17 12:29 Furosemide (Lasix) 80 mg DAILY ORAL 11/05/17 09:00 12/05/17 08:59 11/05/17 08:52 Heparin Sodium (Porcine) (Heparin 5000 units/ml) 5,000 units EVERY 12 HOURS SUBQ 11/04/17 21:00 12/04/17 20:59 Hydralazine HCl (Apresoline) 50 mg EVERY 8 HOURS ORAL 11/04/17 22:00 12/04/17 21:59 Lisinopril (Zestril) 5 mg DAILY ORAL 11/05/17 09:00 12/05/17 08:59 Assessment/Plan Assessment/Plan depressive d/o the pt has capacity to make decisions the pt stated that he has some sadness and low energy. he denied si/hi He was able to understand, process and communicate rationally Ziyad Ledezma MD Nov 05, 2017 11:15
--- NOTE | 2017-11-05 11:35 | Consultation ---
Consult Note Consult Note DATE OF CONSULTATION: 11/05/17 HEMATOLOGY/ONCOLOGY CONSULTATION CONSULTING PHYSICIAN: Christiano Hoffmann M.D. REQUESTING PHYSICIAN: 1. Orlin Cabrera M.D. 2. Shona Martinez REASON FOR CONSULTATION: Evaluation of severe leukopenia and anemia. IDENTIFYING DATA: Dear Dr. Martinez (((PATIENT SEEN ON LAST ADMISSION))) The patient is a pleasant 81-year-old male with past medical history significant for cirrhosis, CKD, and AFib, at this time presents to [facility] with shortness of breath and Afib/rvr, The patient is a poor historian and difficult to obtain any further history from the patient. He has been noted to have bilateral lower extremity edema past several days, WBC noted to be decreased. The patient has a history of atrial fibrillation with RVR. Again, WBC count decreased, 3+ leukocyte esterase, and he was started on antibiotics. Hematology Service was consulted for further evaluation and treatment. The patient recently admitted to [facility] for similar symptoms in the past as well. PAST MEDICAL HISTORY: Cirrhosis. PAST SURGICAL HISTORY: None noted. ALLERGIES: No known drug allergies. REVIEW OF SYSTEMS: CONSTITUTIONAL: No fevers, chills, or night sweats. SKIN: No rashes, bumps, or itching. HEENT: No headache, hearing or visual changes. BREASTS: No lumps, pain, or discharge. PULMONARY: No cough, sputum, or shortness of breath. GASTROINTESTINAL: No nausea, vomiting, or diarrhea. GENITOURINARY: No dysuria, frequency, or urgency. MUSCULOSKELETAL: No joint swelling, muscle pain, or trauma. PHYSICAL EXAMINATION: VITAL SIGNS: Reviewed. GENERAL: No acute distress. LUNGS: Decreased breath sounds. Some crackles noted. CARDIOVASCULAR: Regular rate. No S3 or S4. ABDOMEN: Soft, nontender, and nondistended. EXTREMITIES: A 1+ edema. LABORATORY DATA: HIV negative. Hepatitis negative. Abdominal ultrasound pending. ASSESSMENT AND RECOMMENDATIONS: 1. 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 Hepatitis and human immunodeficiency virus are negative. --> Ultrasound of the abdomen from last admission showed cirrhosis/HSM --> Tumor markers pending as well negative from before. --> Likely leukopenia secondary to splenomegaly. Give neupogen if ANC <1000 2. Anemia due to underlying chronic disease, appears to be stable. --> anemia w/u if hgb worsens 3. Coagulopathy, likely related to underlying cirrhosis of the liver. --> VitK prn basi 4. Hyperkalemia, given Kayexalate, currently improved. 5. Biventricular failure with severe pulmonary hypertension. The patient is seen by Cardiology. 6. Ascites, status post paracentesis. I greatly appreciate the consultation. Christiano Hoffmann MD Nov 05, 2017 11:35
--- NOTE | 2017-11-05 11:54 | Consultation ---
History of Present Illness General Date patient seen: Nov 05, 2017 Time patient seen: 11:36 Chief Complaint: Chest Pain Present Illness HPI 81 year old male with AFIB RVR, palpitations, cirrhosis, LE edema. He was given cardizem in ER with improvement of rate. He is refusing heparin or anticoagulation . CXR with small effusion. Allergies: Coded Allergies: No Known Allergies (Unverified , 08/30/17) Medication History Scheduled Carvedilol* (Carvedilol*), 25 MG ORAL EVERY 12 HOURS, (Reported) Cefuroxime Axetil* (Cefuroxime*), 500 MG PO Q12HR Furosemide* (Lasix*), 80 MG ORAL DAILY, (Reported) Hydralazine Hcl* (Hydralazine Hcl*), 50 MG ORAL EVERY 8 HOURS, (Reported) Lisinopril (Lisinopril*), 5 MG ORAL DAILY, (Reported) Losartan Potassium* (Cozaar*), 50 MG ORAL DAILY Metronidazole* (Flagyl*), 500 MG ORAL Q8HR Multivitamins* (Multivitamins*), 1 TAB ORAL DAILY Rivaroxaban (Xarelto*), 15 MG ORAL HS, (Reported) Spironolactone (Aldactone), 25 MG ORAL DAILY Thiamine Hcl (Vitamin B1*), 100 MG ORAL DAILY Miscellaneous Medications Unable to Obtain Medications (Unable To Obtain Meds), (Reported) Patient History Healthcare decision maker N Resuscitation status Full Code Advanced Directive on File Review of Systems Constitutional: Reports: no symptoms Eye: Reports: no symptoms ENT: Reports: no symptoms Respiratory: Reports: no symptoms Cardiovascular: Reports: palpitations Gastrointestinal: Reports: no symptoms Genitourinary: Reports: no symptoms Musculoskeletal: Reports: no symptoms Skin: Reports: no symptoms Psychiatric: Reports: no symptoms Neurological: Reports: no symptoms Endocrine: Reports: no symptoms Hematologic/Lymphatic: Reports: no symptoms Physical Exam General Appearance: no apparent distress Lines, tubes and drains: peripheral HEENT: normocephalic Neck: non-tender, normal alignment Respiratory/Chest: chest wall non-tender, lungs clear Cardiovascular/Chest: normal peripheral pulses, tachycardia, irregularly irregular Abdomen: normal bowel sounds, distended, guarding, rebound Extremities: normal range of motion, non-tender Neurologic: knowledge architect II-XII grossly normal Last 24 Hour Vital Signs Date Time Temp Pulse Resp B/P (MAP) Pulse Ox O2 Delivery O2 Flow Rate FiO2 11/05/17 10:58 87 18 95/56 (69) 98 11/05/17 08:53 89/66 11/05/17 08:53 79 89/66 11/05/17 08:00 87 11/05/17 08:00 98.7 79 17 89/66 (74) 97 98.7 11/05/17 08:00 Room Air 11/05/17 05:05 86/69 11/05/17 04:00 Room Air 11/05/17 04:00 98.4 82 16 84/66 (72) 97 98.4 11/05/17 04:00 73 11/05/17 00:00 Room Air 11/05/17 00:00 69 11/05/17 00:00 98.1 70 16 92/64 (73) 96 98.1 11/04/17 21:26 88/69 11/04/17 20:02 69 84/58 11/04/17 20:00 Room Air 11/04/17 20:00 68 11/04/17 20:00 97.5 73 18 84/58 (67) 94 97.5 11/04/17 17:28 Room Air 11/04/17 16:30 68 11/04/17 16:27 97.9 67 12 87/58 100 Room Air 97.9 11/04/17 16:15 97.4 71 18 81/57 (65) 94 97.4 11/04/17 14:00 97.9 67 12 87/58 100 Room Air 97.9 11/04/17 12:24 86 101/69 11/04/17 12:00 80 12 100/68 100 Room Air Intake and Output 11/04/17 11/05/17 19:00 07:00 Intake Total 240 ml Output Total 175 ml Balance 240 ml -175 ml Intake Oral 240 ml Output Urine Total 175 ml # Voids 65 # Bowel Movements 1 Laboratory Tests Test 11/05/17 10:35 White Blood Count 4.5 K/UL (4.8-10.8) L Red Blood Count 3.02 M/UL (4.70-6.10) L Hemoglobin 8.3 G/DL (14.2-18.0) L Hematocrit 26.7 % (42.0-52.0) L Mean Corpuscular Volume 89 FL (80-99) Mean Corpuscular Hemoglobin 27.4 PG (27.0-31.0) Mean Corpuscular Hemoglobin Concent 30.9 G/DL (32.0-36.0) L Red Cell Distribution Width 17.7 % (11.6-14.8) H Platelet Count 330 K/UL (150-450) Mean Platelet Volume 7.9 FL (6.5-10.1) Neutrophils (%) (Auto) 69.1 % (45.0-75.0) Lymphocytes (%) (Auto) 20.5 % (20.0-45.0) Monocytes (%) (Auto) 8.9 % (1.0-10.0) Eosinophils (%) (Auto) 0.8 % (0.0-3.0) Basophils (%) (Auto) 0.6 % (0.0-2.0) Sodium Level 139 MMOL/L (136-145) Potassium Level 5.1 MMOL/L (3.5-5.1) Chloride Level 107 MMOL/L (98-107) Carbon Dioxide Level 21 MMOL/L (21-32) Anion Gap 11 mmol/L (5-15) Blood Urea Nitrogen 40 mg/dL (7-18) H Creatinine 2.9 MG/DL (0.55-1.30) H Estimat Glomerular Filtration Rate mL/min (>60) Glucose Level 130 MG/DL (74-106) H Calcium Level 8.2 MG/DL (8.5-10.1) L Microbiology Date/Time Source Procedure Growth Status 11/04/17 12:15 Rectum - Preliminary Resulted Height (Feet): 5 Height (Inches): 7.00 Weight (Pounds): 171 Medications Current Medications Medications (Trade) Dose Ordered Sig/Saul Route PRN Reason Start Time Stop Time Status Last Admin Dose Admin Carvedilol (Coreg) 25 mg EVERY 12 HOURS ORAL 11/04/17 21:00 12/04/17 20:59 Diltiazem HCl 125 mg/Sodium Chloride 125 ml @ 5 mls/hr ONCE ONCE IV 11/04/17 11:30 11/05/17 12:29 Furosemide (Lasix) 80 mg DAILY ORAL 11/05/17 09:00 12/05/17 08:59 11/05/17 08:52 Heparin Sodium (Porcine) (Heparin 5000 units/ml) 5,000 units EVERY 12 HOURS SUBQ 11/04/17 21:00 12/04/17 20:59 Hydralazine HCl (Apresoline) 50 mg EVERY 8 HOURS ORAL 11/04/17 22:00 12/04/17 21:59 Lisinopril (Zestril) 5 mg DAILY ORAL 11/05/17 09:00 12/05/17 08:59 Assessment/Plan Status: stable Assessment/Plan Assessment: AFIB RVR Cirrhosis Pleural efusion RAMONE Plan: Rate controlled Anticoagulation - patient declined, aware of R/B/A Diuresis with lasix Maintain current medications: Hydralazine lisinopril coreg Poor prognosis Kieran Cedillo M.D. Nov 05, 2017 11:54
[2017-11-05 12:00] VITALS: BP 96/63
[2017-11-05] MEDS ORDERED: COREG25 MG ORAL (12:18)
--- NOTE | 2017-11-05 12:20 | Discharge Instructions ---
Discharge Instructions Discharge Instructions Follow up with: Dr Jordi Seo MD/Return to Hospital if: you develop chest pain, palpitations or dyspnea Diet: 2 GM sodium (low sodium) Resume Normal Activity?: Yes Special Instructions Continue home meds Decrease carvedilol to 12.5 mg po BID and continue to take very day For Congestive Heart Failure Reminder Report to your physician any weight gain of 5 pounds or more in one week. Marshall Martinez M.D. Nov 05, 2017 12:20
--- NOTE | 2017-11-05 12:21 | Discharge Summary ---
Discharge Summary Hospital Course Date of Admission Nov 04, 2017 at 12:45 Date of Discharge 11/05/2017 Admitting Diagnosis Atrial fibrillation with rapid ventricular response Hypotension HPI Jose Garcia is a 81 year old male who was admitted on Nov 04, 2017 at 12:45 for Atrial Fibrillation Rapid Ventricular Response He was given IV diltiazem in the ER and admitted for close cardiac monitoring given hypotension Consultations Cardiology Psychiatry Hospital Course Patient remained unstable with low BP's which normalized overnight He refused anticoagulation that was recommended by the oracle consultant Given this, and improved hemodynamics, patient was discharged home Carvedilol reduced given hypotension Discharge Medications New Medications: Carvedilol (Coreg) 25 Mg Tablet 12.5 MG ORAL EVERY 12 HOURS, #60 TAB Continued Medications: Furosemide* (Lasix*) 80 Mg Tablet 80 MG ORAL DAILY, TAB (This prescription has been renewed) Hydralazine Hcl* (Hydralazine Hcl*) 50 Mg Tablet 50 MG ORAL EVERY 8 HOURS, TAB (This prescription has been renewed) Lisinopril (Lisinopril*) 5 Mg Tablet 5 MG ORAL DAILY, TAB (This prescription has been renewed) Multivitamins* (Multivitamins*) 1 Each Tablet 1 TAB ORAL DAILY for 30 Days, #30 TAB Rivaroxaban (Xarelto*) 10 Mg Tablet 15 MG ORAL HS, #30 TAB 0 Refills (This prescription has been renewed) Spironolactone (Aldactone) 25 Mg Tablet 25 MG ORAL DAILY for 30 Days, #30 TAB Thiamine Hcl (Vitamin B1*) 100 Mg Tablet 100 MG ORAL DAILY for 30 Days, #30 TAB Unable to Obtain Medications (Unable To Obtain Meds) 1 Ea Ea (This prescription has been renewed) Discontinued Medications: Carvedilol* (Carvedilol*) 25 Mg Tablet 25 MG ORAL EVERY 12 HOURS, TAB Cefuroxime Axetil* (Cefuroxime*) 500 Mg Tablet 500 MG PO Q12HR for 5 Days, #10 TAB Losartan Potassium* (Cozaar*) 50 Mg Tablet 50 MG ORAL DAILY for 30 Days, #30 TAB Metronidazole* (Flagyl*) 500 Mg Tablet 500 MG ORAL Q8HR for 5 Days, #15 TAB Discharge Condition Upon Discharge: stable Discharge Disposition Patient was discharged to home I spent 40 minutes conducting and coordinating discharge activities for this patient Discharge Diagnoses: (1) Atrial fibrillation with RVR (2) Hypotension (3) Cirrhosis (4) 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 hypertension (5) CKD (chronic kidney disease) Discharge Instructions Discharge Instructions Follow up with: Dr Jordi Seo MD/Return to Hospital if: you develop chest pain, palpitations or dyspnea Marshall Martinez M.D. Nov 05, 2017 12:21
--- NOTE | 2017-11-05 13:36 | Cardiology Report ---
APPROVED REPORT EKG Measurement Heart [id number] Poor data quality, interpretation may be adversely affected Atrial fibrillation with rapid ventricular response Left axis deviation Anteroseptal infarct, age undetermined Abnormal ECG
[2017-11-05 14:23] LABS: FERRITIN 289 NG/ML (8-388); LACTATE DEHYDROGENASE 203 U/L (81-234)
[2017-11-05 14:37] LABS: % IRON SATURATION 20 % (15-50); IRON 37 ug/dL (50-175); TOTAL IRON BINDING CAPACITY 181 ug/dL (250-450)
== END 2017-11-05 13:55 | disposition home or self-care (01) | DRG 201 ==
LOC: EDBD 11:12 → EMR 11:35 → 2E 12:45 → EDBEDREQ 13:43 → EDBEDREQSVC 14:54 → 2W 15:42
DX: I48.91 Unspecified atrial fibrillation (principal); N17.9 Acute kidney failure, unspecified; J90 Pleural effusion, not elsewhere classified; D61.818 Other pancytopenia; D68.9 Coagulation defect, unspecified; E87.5 Hyperkalemia; I27.20 Pulmonary hypertension, unspecified; R18.8 Other ascites; I42.9 Cardiomyopathy, unspecified; K74.60 Unspecified cirrhosis of liver; F32.9 Major depressive disorder, single episode, unspecified; N18.9 Chronic kidney disease, unspecified; I50.42 Chronic combined systolic (congestive) and diastolic (congestive) heart failure
CPT/HCPCS: 36415; 71045; 80048; 80053; 82607; 82728; 83540; 83550; 83615; 83880; 83921; 84443; 84484; 85007; 85025; 85044; 85060; 87081; 93005

== ENCOUNTER 2017-11-21 04:10 | Inpatient (IN) | payer MEDICAID ==
[2017-11-21] VITALS (7 sets, daily range): BP systolic 109–132; BP diastolic 64–94
[~2017-11-21] VITALS: Ht 165.1 cm; Wt 80.4 kg
[~2017-11-21 04:10] MED LIST changes: +COREG25 MG ORAL
--- NOTE | 2017-11-21 04:28 | Emergency Room Report ---
History of Present Illness General Chief Complaint: Abdominal Pain Source: Patient, Medical Record, EMS Present Illness HPI Is an 81-year-old male who is a very poor historian. He has a history of alcoholic cirrhosis with ascites. Also history rapid A. fib. Noncompliant with his medication. Call 911 because he felt short of breath and abdominal distention. He was admitted here recently and had paracentesis. He doesn't know what his medications are. Apparently not taking them. Denies any other complaint. No chest pain. Worse with exertion. Worse with lying flat. Allergies: Coded Allergies: No Known Allergies (Unverified , 08/30/17) Patient History Past Medical History: see triage record, old chart reviewed, CHF, AFib Past Surgical History: other Pertinent Family History: none Social History: Reports: alcohol use; Denies: smoking Immunizations: other Reviewed Nursing Documentation: PMH: Agreed; PSxH: Agreed Nursing Documentation-PMH Hx Cardiac Problems: Yes - A FIB Hx Hypertension: Yes Hx Cancer: No Hx Gastrointestinal Problems: Yes - Ascites, Cirrhosis, UTI Hx Neurological Problems: No Review of Systems Eye: Denies: eye pain, blurred vision ENT: Denies: ear pain, nose congestion, throat swelling Respiratory: Reports: shortness of breath; Denies: cough Cardiovascular: Denies: chest pain, palpitations Gastrointestinal: Reports: abdominal pain; Denies: diarrhea, nausea, vomiting Musculoskeletal: Denies: back pain, joint pain Skin: Denies: rash Neurological: Denies: headache, numbness Endocrine: Denies: increased thirst, increased urine Hematologic/Lymphatic: Denies: easy bruising All Other Systems: negative except mentioned in HPI Physical Exam Vital Signs Date Time Temp Pulse Resp B/P (MAP) Pulse Ox O2 Delivery O2 Flow Rate FiO2 11/21/17 04:01 98.4 125 20 146/94 99 Room Air 98.4 vitals with tachycardia Sp02 EP Interpretation: reviewed, normal General Appearance: well appearing, no apparent distress, alert, mild distress Head: normocephalic, atraumatic Eyes: bilateral eye PERRL, bilateral eye EOMI ENT: hearing grossly normal, normal pharynx Neck: full range of motion, supple, no meningismus Respiratory: chest non-tender, decreased breath sounds Cardiovascular #1: no murmur, tachycardia, irregularly irregular Gastrointestinal: normal bowel sounds, non tender, no mass, no organomegaly, no bruit, other - Distended with ascites. Not tense. Musculoskeletal: back normal, normal range of motion, swelling - 11+ pitting edema Psychiatric: mood/affect normal Skin: warm/dry Procedures Critical Care Time Critical Care Time Critical care is mandated in this patient who presented with rapid A. fib. Patient require my urgent intervention to attenuate the risks of metabolic collapse which may lead to cardiovascular collapse and . Critical care time is 35 minutes excluding any reportable procedure. Critical care time included evaluation, multiple reevaluation, looking at old charts, interpreting laboratory and diagnostic data, discussing case with patient and family and consultants, and charting. Medical Decision Making Diagnostic Impression: Primary Impression: Acute exacerbation of CHF (congestive heart failure) Qualified Codes: I50.9 - Heart failure, unspecified Additional Impressions: Atrial fibrillation with RVR Cirrhosis Qualified Codes: K70.31 - Alcoholic cirrhosis of liver with ascites Anemia Qualified Codes: D64.9 - Anemia, unspecified CKD (chronic kidney disease) Qualified Codes: N18.9 - Chronic kidney disease, unspecified ER Course this patient presents with shortness of breath. He has a combination of atrial ablation with RVR, CHF and ascites. This probably secondary to noncompliance. Heart rate is controlled after dose of Cardizem. Blood pressure stable. Lasix given. Will admit for further workup. Lab Results Impression labs with elevated BNP EKG Diagnostic Results Rate: tachycardiac Rhythm: other - rapid afib ST Segments: other - NSST changes Rhythm Strip Diag. Results Rhythm Strip Time: 04:28 EP Interpretation: yes Rate: 100 Rhythm: no PVC's, no ectopy, other - afib Chest X-Ray Diagnostic Results Chest X-Ray Diagnostic Results : Chest X-Ray Ordered: Yes # of Views/Limited/Complete: 1 View Indication: Shortness of Breath EP Interpretation: Yes Interpretation: no consolidation, no pneumothorax, other - Severe cardiomegaly with left pleural effusion. Impression: Other - CM with chf Electronically Signed by: Varghese Wolf MD Last Vital Signs Date Time Temp Pulse Resp B/P (MAP) Pulse Ox O2 Delivery O2 Flow Rate FiO2 11/21/17 04:01 98.4 125 20 146/94 99 Room Air 98.4 Status: improved Disposition: ADMITTED INPATIENT Condition: Serious VARGHESE WOLF M.D. Nov 21, 2017 04:28
[2017-11-21] MEDS ORDERED: dilTIAZem HCl 25mg/5ml Inj IVP ONE (04:30)
[2017-11-21 04:44] LABS: BASOPHILS % (AUTO) 0.7 % (0.0-2.0); EOSINOPHILS % (AUTO) 0.6 % (0.0-3.0); HEMATOCRIT 32.7 % (42.0-52.0); HEMOGLOBIN 9.6 G/DL (14.2-18.0); LYMPHOCYTES % (AUTO) 31.5 % (20.0-45.0); MEAN CORPUSCULAR VOLUME 93 FL (80-99); MONOCYTES % (AUTO) 7.6 % (1.0-10.0); NEUTROPHILS % (AUTO) 59.7 % (45.0-75.0); PLATELET COUNT 199 K/UL (150-450); RED BLOOD COUNT 3.52 M/UL (4.70-6.10); RED CELL DISTRIBUTION WIDTH 19.1 % (11.6-14.8); WHITE BLOOD COUNT 4.7 K/UL (4.8-10.8)
[2017-11-21 04:58] LABS: ANION GAP 15 mmol/L (5-15); BLOOD UREA NITROGEN 36 mg/dL (7-18); CALCIUM 8.6 MG/DL (8.5-10.1); CARBON DIOXIDE 20 MMOL/L (21-32); CHLORIDE 109 MMOL/L (98-107); CREATININE 2.2 MG/DL (0.55-1.30); POTASSIUM 5.1 MMOL/L (3.5-5.1); SODIUM 144 MMOL/L (136-145)
[2017-11-21 05:00] LABS: INR 1.5 (0.9-1.1)
[2017-11-21 05:11] LABS: ALANINE AMINOTRANSFERASE 51 U/L (12-78); ALBUMIN 2.7 G/DL (3.4-5.0); ALBUMIN/GLOBULIN RATIO 0.5 (1.0-2.7); ALKALINE PHOSPHATASE 166 U/L (46-116); ASPARTATE AMINO TRANSFERASE 83 U/L (15-37); BILIRUBIN,TOTAL 1.5 MG/DL (0.2-1.0); CKMB 1.2 NG/ML (0.0-3.6); CREATINE KINASE 78 U/L (26-308)
[2017-11-21 05:17] LABS: BILIRUBIN,DIRECT 0.6 MG/DL (0.0-0.3)
--- NOTE | 2017-11-21 06:06 | Diagnostic Imaging Report ---
EXAM: XR Chest, 1 View CLINICAL HISTORY: SOB TECHNIQUE: Frontal view of the chest. COMPARISON: 11/04/17 FINDINGS: Lungs: Low lung volumes accentuating pulmonary lung markings. Possible mild bibasilar atelectasis versus early infiltrate. Pleural space: Small right pleural effusion suspected. No pneumothorax. Heart: Enlarged cardiopericardial silhouette, unchanged compared to 11/04/17. Mediastinum: Tortuous calcified thoracic aorta, unchanged. Bones/joints: Unremarkable. Vasculature: Prominence of the central vasculature likely mild congestion. IMPRESSION: Stable enlarged cardiopericardial silhouette. Low lung volumes limit evaluation. Suspect vascular congestion. Mild bibasilar atelectasis versus infiltrate.
[2017-11-21] MEDS ORDERED: Miralax 17gm pkt ORAL PRN (07:15)
[2017-11-21] MEDS: Docusate 100mg cap ORAL SCH ×2 (09:00→20:42)
--- NOTE | 2017-11-21 18:22 | History and Physical ---
History of Present Illness General Date patient seen: Nov 21, 2017 Time patient seen: 13:31 Reason for Hospitalization: Abdominal Pain Present Illness HPI 81 yo man, well-known to me recently discharged from [place] for ascites requiring paracentesis returns c/o abdominal distension and discomfort Very noncompliant with meds Found to be in atrial fibrillation with RVR- controlled with dilitazem Now on floor c/o abdominal distension Denies chest pain or dyspnea PMHx: Cirrhosis, atrial fibrillation FHx: Reviewed; not pertinent for this encounter SHx: No tobacco/EtOH Allergies: Coded Allergies: No Known Allergies (Unverified , 08/30/17) Medication History Scheduled Carvedilol (Coreg), 12.5 MG ORAL EVERY 12 HOURS Furosemide* (Lasix*), 80 MG ORAL DAILY, (Reported) Hydralazine Hcl* (Hydralazine Hcl*), 50 MG ORAL EVERY 8 HOURS, (Reported) Lisinopril (Lisinopril*), 5 MG ORAL DAILY, (Reported) Multivitamins* (Multivitamins*), 1 TAB ORAL DAILY Rivaroxaban (Xarelto*), 15 MG ORAL HS, (Reported) Spironolactone (Aldactone), 25 MG ORAL DAILY Thiamine Hcl (Vitamin B1*), 100 MG ORAL DAILY Miscellaneous Medications Unable to Obtain Medications (Unable To Obtain Meds), (Reported) Unable to Obtain Medications (Unable To Obtain Meds), (Reported) Patient History Limited by: medical condition History Provided By: Patient Healthcare decision maker Resuscitation status Full Code Advanced Directive on File Review of Systems Constitutional: Reports: malaise, weakness Eye: Reports: no symptoms ENT: Reports: no symptoms Respiratory: Reports: no symptoms Cardiovascular: Reports: no symptoms Gastrointestinal: Reports: abdominal pain, constipation, nausea Genitourinary: Reports: no symptoms Musculoskeletal: Reports: no symptoms Skin: Reports: no symptoms Psychiatric: Reports: see HPI, prior hx Neurological: Reports: no symptoms Endocrine: Reports: no symptoms Hematologic/Lymphatic: Reports: no symptoms All Other Systems: negative except mentioned in HPI Physical Exam General Appearance: no apparent distress, lethargic Lines, tubes and drains: peripheral HEENT: normocephalic Neck: non-tender, normal alignment, supple Respiratory/Chest: decreased breath sounds Cardiovascular/Chest: normal peripheral pulses, irregularly irregular Abdomen: decreased bowel sounds, distended, other - +fluid wave Genitourinary/Rectal: normal genital exam Extremities: normal range of motion Skin Exam: normal pigmentation, warm/dry Neurologic: alert Musculoskeletal: atrophy Last 24 Hour Vital Signs Date Time Temp Pulse Resp B/P (MAP) Pulse Ox O2 Delivery O2 Flow Rate FiO2 11/21/17 16:00 97 11/21/17 16:00 97.0 100 18 123/78 (93) 95 97.0 11/21/17 12:00 92 11/21/17 12:00 97.5 100 18 117/75 (89) 96 97.5 11/21/17 09:00 Nasal Cannula 2.0 11/21/17 08:02 Nasal Cannula 2.0 11/21/17 08:00 90 11/21/17 07:15 97.8 72 18 113/72 100 Room Air 97.8 11/21/17 07:00 72 18 113/72 100 Room Air 11/21/17 06:00 97.8 78 18 111/70 100 Room Air 97.8 11/21/17 04:44 97.5 79 20 109/64 99 Room Air 97.5 11/21/17 04:39 97.5 128 24 132/94 99 Room Air 97.5 11/21/17 04:33 128 132/94 11/21/17 04:01 98.4 125 20 146/94 99 Room Air 98.4 Intake and Output 11/20/17 11/21/17 19:00 07:00 # Voids 1 Laboratory Tests Test 11/21/17 04:20 White Blood Count 4.7 K/UL (4.8-10.8) L Red Blood Count 3.52 M/UL (4.70-6.10) L Hemoglobin 9.6 G/DL (14.2-18.0) L Hematocrit 32.7 % (42.0-52.0) L Mean Corpuscular Volume 93 FL (80-99) Mean Corpuscular Hemoglobin 27.3 PG (27.0-31.0) Mean Corpuscular Hemoglobin Concent 29.4 G/DL (32.0-36.0) L Red Cell Distribution Width 19.1 % (11.6-14.8) H Platelet Count 199 K/UL (150-450) Mean Platelet Volume 10.5 FL (6.5-10.1) H Neutrophils (%) (Auto) 59.7 % (45.0-75.0) Lymphocytes (%) (Auto) 31.5 % (20.0-45.0) Monocytes (%) (Auto) 7.6 % (1.0-10.0) Eosinophils (%) (Auto) 0.6 % (0.0-3.0) Basophils (%) (Auto) 0.7 % (0.0-2.0) Prothrombin Time 15.4 SEC (9.30-11.50) H Prothromb Time International Ratio 1.5 (0.9-1.1) H Activated Partial Thromboplast Time 27 SEC (23-33) Sodium Level 144 MMOL/L (136-145) Potassium Level 5.1 MMOL/L (3.5-5.1) Chloride Level 109 MMOL/L (98-107) H Carbon Dioxide Level 20 MMOL/L (21-32) L Anion Gap 15 mmol/L (5-15) Blood Urea Nitrogen 36 mg/dL (7-18) H Creatinine 2.2 MG/DL (0.55-1.30) H Estimat Glomerular Filtration Rate mL/min (>60) Glucose Level 42 MG/DL (74-106) L Calcium Level 8.6 MG/DL (8.5-10.1) Total Bilirubin 1.5 MG/DL (0.2-1.0) H Direct Bilirubin 0.6 MG/DL (0.0-0.3) H Aspartate Amino Transf (AST/SGOT) 83 U/L (15-37) H Alanine Aminotransferase (ALT/SGPT) 51 U/L (12-78) Alkaline Phosphatase 166 U/L (46-116) H Total Creatine Kinase 78 U/L (26-308) Creatine Kinase MB 1.2 NG/ML (0.0-3.6) Creatine Kinase MB Relative Index 1.5 Troponin I 0.032 ng/mL (0.000-0.056) Pro-B-Type Natriuretic Peptide > 81856 pg/mL (0-125) H Total Protein 8.1 G/DL (6.4-8.2) Albumin 2.7 G/DL (3.4-5.0) L Globulin 5.4 g/dL Albumin/Globulin Ratio 0.5 (1.0-2.7) L Serum Alcohol < 3 mg/dL Height (Feet): 5 Height (Inches): 7.00 Weight (Pounds): 176 Medications Current Medications Medications (Trade) Dose Ordered Sig/Saul Route PRN Reason Start Time Stop Time Status Last Admin Dose Admin Bisacodyl (Dulcolax) 10 mg DAILYPRN PRN RECTAL Constipation 11/21/17 07:15 12/21/17 07:14 Carvedilol (Coreg) 12.5 mg EVERY 12 HOURS ORAL 11/21/17 21:00 12/21/17 20:59 Dextrose (Dextrose 50%) 25 ml STAT PRN IV Hypoglycemia 11/21/17 07:15 12/21/17 07:14 Dextrose (Dextrose 50%) 50 ml STAT PRN IV Hypoglycemia 11/21/17 07:15 12/21/17 07:14 Docusate Sodium (Colace) 100 mg EVERY 12 HOURS ORAL 11/21/17 09:00 12/21/17 08:59 Furosemide (Lasix) 80 mg DAILY ORAL 11/22/17 09:00 12/22/17 08:59 Hydralazine HCl (Apresoline) 50 mg EVERY 8 HOURS ORAL 11/21/17 22:00 12/21/17 21:59 Lisinopril (Zestril) 5 mg DAILY ORAL 11/22/17 09:00 12/22/17 08:59 Multivitamins (Multivitamins) 1 tab DAILY ORAL 11/22/17 09:00 12/22/17 08:59 Polyethylene Glycol (Miralax) 17 gm DAILYPRN PRN ORAL Constipation 11/21/17 07:15 12/21/17 07:14 11/21/17 13:25 Spironolactone (Aldactone) 25 mg DAILY ORAL 11/22/17 09:00 12/22/17 08:59 Thiamine HCl (Vitamin B1) 100 mg DAILY ORAL 11/22/17 09:00 12/22/17 08:59 Assessment/Plan Status: deteriorating Status Narrative 81 yo man with atrial fibrillation and cirrhosis Noncompliant with medications and therapy Returns with abdominal distension, atrial fibrillation with RVR Assessment/Plan Admit to inpatient Cardiac monitoring O2 support as needed Cardiology consult Renal Consult for RAMONE GI consult Paracentesis; peritoneal fluid analysis repeat labs, electrolytes hold spironolactone, LIANNE given hyperkalemia EKG DVT Prophylaxis: SCD's Code Status: Full Hospital Classification declaration: Based on this initial evaluation and depending on the patient's clinical course I anticipate that this patient will require hospitalization for at least 2-3 days Disposition: Once the patient is stable to leave the hospital I anticipate the patient will likely be discharged to the following environment: Home I spent 70 minutes on this patients car and 36 minutes was dedicated to counseling and care coordination Time of note may not reflect time of encounter Marshall Martinez M.D. Nov 21, 2017 18:22
[2017-11-21] MEDS: Carvedilol 12.5mg tab ORAL SCH (20:42)
[2017-11-21] MEDS: traMADol 50mg tab ORAL PRN (22:09)
[2017-11-21] MEDS: HydrALAZINE 50mg tab ORAL SCH (22:09)
[2017-11-22] VITALS: BP 139/96
[2017-11-22] MEDS: traMADol 50mg tab ORAL PRN ×2 (02:35→05:52)
[2017-11-22 03:56] VITALS: BP 117/77
[2017-11-22] MEDS: HydrALAZINE 50mg tab ORAL SCH (05:52)
--- NOTE | 2017-11-22 06:53 | Consultation ---
Consult Note Consult Note DATE OF CONSULTATION: 11/21/17 HEMATOLOGY/ONCOLOGY CONSULTATION CONSULTING PHYSICIAN: Christiano Hoffmann M.D. REQUESTING PHYSICIAN: 1. Orlin Cabrera M.D. 2. Pako Martinez REASON FOR CONSULTATION: Evaluation of severe leukopenia and anemia. IDENTIFYING DATA: Dear Dr. Martinez (((PATIENT SEEN ON LAST ADMISSION))) The patient is a pleasant 81-year-old male with past medical history significant for cirrhosis, CKD, and AFib, at this time presents to [facility] with shortness of breath and Afib/rvr has been controlled with dilt, The patient is a poor historian and difficult to obtain any further history from the patient. He has been noted to have bilateral lower extremity edema past several days, WBC noted to be decreased. The patient has a history of atrial fibrillation with RVR. Again, WBC count decreased, 3+ leukocyte esterase, and he was started on antibiotics. Hematology Service was consulted for further evaluation and treatment. The patient recently admitted to [facility] for similar symptoms in the past as well. here for paracentesis. PAST MEDICAL HISTORY: Cirrhosis. PAST SURGICAL HISTORY: None noted. ALLERGIES: No known drug allergies. REVIEW OF SYSTEMS: CONSTITUTIONAL: No fevers, chills, or night sweats. SKIN: No rashes, bumps, or itching. HEENT: No headache, hearing or visual changes. BREASTS: No lumps, pain, or discharge. PULMONARY: No cough, sputum, or shortness of breath. GASTROINTESTINAL: No nausea, vomiting, or diarrhea. GENITOURINARY: No dysuria, frequency, or urgency. MUSCULOSKELETAL: No joint swelling, muscle pain, or trauma. PHYSICAL EXAMINATION: VITAL SIGNS: Reviewed. GENERAL: No acute distress. LUNGS: Decreased breath sounds. Some crackles noted. CARDIOVASCULAR: Regular rate. No S3 or S4. ABDOMEN: Soft, nontender, and nondistended. EXTREMITIES: A 1+ edema. LABORATORY DATA: HIV negative. Hepatitis negative. Abdominal ultrasound pending. ASSESSMENT AND RECOMMENDATIONS: 1. 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 Hepatitis and human immunodeficiency virus are negative. --> Ultrasound of the abdomen from last admission showed cirrhosis/HSM --> Tumor markers pending as well negative from before. --> Likely leukopenia secondary to splenomegaly. Give neupogen if ANC <1000 ==> here for paracentesis 2. Anemia due to underlying chronic disease, appears to be stable. --> anemia w/u if hgb worsens 3. Coagulopathy, likely related to underlying cirrhosis of the liver. --> VitK prn basi 4. Hyperkalemia, given Kayexalate, currently improved. 5. Biventricular failure with severe pulmonary hypertension. The patient is seen by Cardiology. 6. Ascites, status post paracentesis. I greatly appreciate the consultation. Christiano Hoffmann MD Nov 22, 2017 06:53
[2017-11-22 08:00] VITALS: BP 126/80
[2017-11-22 08:12] LABS: BASOPHILS % (AUTO) 0.9 % (0.0-2.0); HEMATOCRIT 29.3 % (42.0-52.0); HEMOGLOBIN 8.7 G/DL (14.2-18.0); LYMPHOCYTES % (AUTO) 23.5 % (20.0-45.0); MEAN CORPUSCULAR VOLUME 95 FL (80-99); MONOCYTES % (AUTO) 9.5 % (1.0-10.0); NEUTROPHILS % (AUTO) 66.2 % (45.0-75.0); PLATELET COUNT 154 K/UL (150-450); RED CELL DISTRIBUTION WIDTH 19.2 % (11.6-14.8); WHITE BLOOD COUNT 4.3 K/UL (4.8-10.8)
[2017-11-22] MEDS: Carvedilol 12.5mg tab ORAL SCH ×2 (09:00→22:04)
[2017-11-22] MEDS ORDERED: Lisinopril 2.5mg tab ORAL SCH (09:00)
[2017-11-22] MEDS ORDERED: Thiamine 100mg tab ORAL SCH (09:00)
[2017-11-22] MEDS: Docusate 100mg cap ORAL SCH (09:00)
[2017-11-22] MEDS ORDERED: Furosemide 80mg tab ORAL SCH (09:00)
[2017-11-22] MEDS ORDERED: Spironolactone 25mg tab ORAL SCH (09:00)
[2017-11-22 09:31] LABS: ANION GAP 16 mmol/L (5-15); BLOOD UREA NITROGEN 47 mg/dL (7-18); CALCIUM 8.7 MG/DL (8.5-10.1); CARBON DIOXIDE 18 MMOL/L (21-32); CHLORIDE 108 MMOL/L (98-107); CREATININE 2.7 MG/DL (0.55-1.30); POTASSIUM 5.7 MMOL/L (3.5-5.1); SODIUM 142 MMOL/L (136-145)
--- NOTE | 2017-11-22 10:05 | GI Initial Consult Note ---
History of Present Illness General Date patient seen: Nov 22, 2017 Time patient seen: 10:04 Reason for Hospitalization: Abdominal Pain Referring physician: BABATUNDE Reason for Consultation: CIRRHOSIS Present Illness HPI Is an 81-year-old male who is a very poor historian. He has a history of alcoholic cirrhosis with ascites. Also history rapid A. fib. Noncompliant with his medication. Call 911 because he felt short of breath and abdominal distention. He was admitted here recently and had paracentesis. He doesn't know what his medications are. Apparently not taking them. Denies any other complaint. No chest pain. Worse with exertion. Worse with lying flat. GI consulted for cirrhosis. ROS limited, pt is a poor historian. All information obtained from medical record. Patient was admitted a few months ago s/p paracentesis with over 5L ascites removed. Has of right sided heart failure, chronic kidney disease, and cirrhosis. Anemia work up showed iron deficiency and negative OB stool. Note patient is on Xarelto. Presents today with severe abdominal distention 2/2 to ascites. All labs reviewed. Unknown history of endoscopy / colonoscopy. Patient currently pending a paracentesis. Home Meds Active Scripts Carvedilol (Coreg) 25 Mg Tablet, 12.5 MG ORAL EVERY 12 HOURS, #60 TAB Prov:Marshall Martinez M.D. 11/05/17 Thiamine Hcl (VITAMIN B1*) 100 Mg Tablet, 100 MG ORAL DAILY for 30 Days, #30 TAB Prov:Valerie Lester NP 10/15/17 Multivitamins* (MULTIVITAMINS*) 1 Each Tablet, 1 TAB ORAL DAILY for 30 Days, # 30 TAB Prov:Valerie Lester NP 10/15/17 Spironolactone (ALDACTONE) 25 Mg Tablet, 25 MG ORAL DAILY for 30 Days, #30 TAB Prov:Valerie Lester NP 10/15/17 Reported Medications Unable to Obtain Medications (UNABLE TO OBTAIN MEDS) 1 Ea Ea 11/21/17 Unable to Obtain Medications (UNABLE TO OBTAIN MEDS) 1 Ea Ea 10/07/17 Furosemide* (LASIX*) 80 Mg Tablet, 80 MG ORAL DAILY, TAB 08/30/17 Lisinopril (LISINOPRIL*) 5 Mg Tablet, 5 MG ORAL DAILY, TAB 08/30/17 Hydralazine Hcl* (HYDRALAZINE HCL*) 50 Mg Tablet, 50 MG ORAL EVERY 8 HOURS, TAB 08/30/17 Rivaroxaban (XARELTO*) 10 Mg Tablet, 15 MG ORAL HS, #30 TAB 0 Refills 08/30/17 Med list reviewed/reconciled: Yes Allergies: Coded Allergies: No Known Allergies (Unverified , 08/30/17) Patient History Limited by: medical condition History Provided By: Medical Record PMH Narrative Past Medical History: see triage record, old chart reviewed, CHF, AFib Past Surgical History: other Pertinent Family History: none Social History: Reports: alcohol use; Denies: smoking Immunizations: other Reviewed Nursing Documentation: PMH: Agreed; PSxH: Agreed Nursing Documentation-PMH Hx Cardiac Problems: Yes - A FIB Hx Hypertension: Yes Hx Cancer: No Hx Gastrointestinal Problems: Yes - Ascites, Cirrhosis, UTI Hx Neurological Problems: No Physical Exam Vital Signs Date Time Temp Pulse Resp B/P (MAP) Pulse Ox O2 Delivery O2 Flow Rate FiO2 11/21/17 04:01 98.4 125 20 146/94 99 Room Air 98.4 11/21/17 08:02 2.0 Labs Laboratory Tests Test 11/22/17 07:35 White Blood Count 4.3 K/UL (4.8-10.8) L Red Blood Count 3.10 M/UL (4.70-6.10) L Hemoglobin 8.7 G/DL (14.2-18.0) L Hematocrit 29.3 % (42.0-52.0) L Mean Corpuscular Volume 95 FL (80-99) Mean Corpuscular Hemoglobin 28.2 PG (27.0-31.0) Mean Corpuscular Hemoglobin Concent 29.8 G/DL (32.0-36.0) L Red Cell Distribution Width 19.2 % (11.6-14.8) H Platelet Count 154 K/UL (150-450) Mean Platelet Volume 8.3 FL (6.5-10.1) Neutrophils (%) (Auto) 66.2 % (45.0-75.0) Lymphocytes (%) (Auto) 23.5 % (20.0-45.0) Monocytes (%) (Auto) 9.5 % (1.0-10.0) Eosinophils (%) (Auto) 0.0 % (0.0-3.0) Basophils (%) (Auto) 0.9 % (0.0-2.0) Sodium Level 142 MMOL/L (136-145) Potassium Level 5.7 MMOL/L (3.5-5.1) H Chloride Level 108 MMOL/L (98-107) H Carbon Dioxide Level 18 MMOL/L (21-32) L Anion Gap 16 mmol/L (5-15) H Blood Urea Nitrogen 47 mg/dL (7-18) H Creatinine 2.7 MG/DL (0.55-1.30) H Estimat Glomerular Filtration Rate mL/min (>60) Glucose Level 28 MG/DL (74-106) *L Calcium Level 8.7 MG/DL (8.5-10.1) Magnesium Level 2.1 MG/DL (1.8-2.4) Current Medications Current Medications Medications (Trade) Dose Ordered Sig/Saul Route PRN Reason Start Time Stop Time Status Last Admin Dose Admin Bisacodyl (Dulcolax) 10 mg DAILYPRN PRN RECTAL Constipation 11/21/17 07:15 12/21/17 07:14 Carvedilol (Coreg) 12.5 mg EVERY 12 HOURS ORAL 11/21/17 21:00 12/21/17 20:59 11/21/17 20:42 Dextrose (Dextrose 50%) 25 ml STAT PRN IV Hypoglycemia 11/21/17 07:15 12/21/17 07:14 Dextrose (Dextrose 50%) 50 ml STAT PRN IV Hypoglycemia 11/21/17 07:15 12/21/17 07:14 11/22/17 09:42 Docusate Sodium (Colace) 100 mg EVERY 12 HOURS ORAL 11/21/17 09:00 12/21/17 08:59 Furosemide (Lasix) 80 mg DAILY ORAL 11/22/17 09:00 12/22/17 08:59 Hydralazine HCl (Apresoline) 50 mg EVERY 8 HOURS ORAL 11/21/17 22:00 12/21/17 21:59 11/22/17 05:52 Multivitamins (Multivitamins) 1 tab DAILY ORAL 11/22/17 09:00 12/22/17 08:59 Polyethylene Glycol (Miralax) 17 gm DAILYPRN PRN ORAL Constipation 11/21/17 07:15 12/21/17 07:14 11/21/17 13:25 Thiamine HCl (Vitamin B1) 100 mg DAILY ORAL 11/22/17 09:00 12/22/17 08:59 Tramadol HCl (Ultram) 50 mg Q4H PRN ORAL PAIN (4-10) 11/21/17 21:51 11/28/17 21:50 11/22/17 05:52 GI: Plan Problems: (1) Cirrhosis (2) Anemia (3) Iron deficiency (4) Systolic and diastolic CHF, acute (5) Hepatic encephalopathy Plan paracentesis pending today >> r/o SBP iron deficiency hepatitis panel on last admission negative will consider endoscopy pending work up anemia work up OB stool r/o GI bleed monitor H&H, prn transfusions bowel regime ppi albumin x3 days Vitamin K x1 hold lasix given elevated creatinine levels fu labs, NH3 Discussed with Dr. Choudhary. Thank you for this patient referral, we will follow. The patient was seen and examined at bedside and all new and available data was reviewed in the patients chart. I agree with the above findings, impression and plan. (Patient seen earlier today. Signature stamp does not reflect patient encounter time.). - MD Maryann Mckinley,[facility] HEAD OF DATA Nov 22, 2017 10:05
--- NOTE | 2017-11-22 10:48 | Consultation ---
History of Present Illness General Date patient seen: Nov 22, 2017 Chief Complaint: Abdominal Pain Referring physician: BABATUNDE Reason for Consultation: CIRRHOSIS Present Illness HPI 81-year-old male who is a very poor historian. He has a history of alcoholic cirrhosis with ascites. the pt has waxing and waning of consciousness. the pt has poor memory Allergies: Coded Allergies: No Known Allergies (Unverified , 08/30/17) Medication History Scheduled Carvedilol (Coreg), 12.5 MG ORAL EVERY 12 HOURS Furosemide* (Lasix*), 80 MG ORAL DAILY, (Reported) Hydralazine Hcl* (Hydralazine Hcl*), 50 MG ORAL EVERY 8 HOURS, (Reported) Lisinopril (Lisinopril*), 5 MG ORAL DAILY, (Reported) Multivitamins* (Multivitamins*), 1 TAB ORAL DAILY Rivaroxaban (Xarelto*), 15 MG ORAL HS, (Reported) Spironolactone (Aldactone), 25 MG ORAL DAILY Thiamine Hcl (Vitamin B1*), 100 MG ORAL DAILY Miscellaneous Medications Unable to Obtain Medications (Unable To Obtain Meds), (Reported) Unable to Obtain Medications (Unable To Obtain Meds), (Reported) Patient History History Provided By: Patient Healthcare decision maker Resuscitation status Full Code Advanced Directive on File Past Medical/Surgical History Past Medical/Surgical History: (1) Atrial fibrillation with RVR (2) Coagulopathy (3) Diarrhea (4) Leukopenia (5) Renal cyst (6) Ventricular tachycardia (7) Afib (8) Anemia (9) Cirrhosis (10) CKD (chronic kidney disease) (11) Acute exacerbation of CHF (congestive heart failure) (12) Atrial fibrillation with RVR (13) Iron deficiency (14) Systolic and diastolic CHF, acute (15) Hepatic encephalopathy (16) Acute on chronic renal failure (17) Hypotension (18) 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 hypertension (19) Severe mitral regurgitation Review of Systems Psychiatric: Reports: prior hx, anxiety, depressed feelings Physical Exam General Appearance: no apparent distress, alert, confused Last 24 Hour Vital Signs Date Time Temp Pulse Resp B/P (MAP) Pulse Ox O2 Delivery O2 Flow Rate FiO2 11/22/17 09:00 91 109/64 11/22/17 05:52 117/77 11/22/17 04:00 97 11/22/17 03:56 97.5 113 20 117/77 (90) 100 97.5 11/22/17 00:00 88 11/22/17 00:00 97.2 113 18 139/96 (110) 100 97.2 11/21/17 22:09 125/86 11/21/17 21:00 Nasal Cannula 2.0 11/21/17 20:42 116 123/78 11/21/17 20:00 97.5 116 18 125/86 (99) 100 97.5 11/21/17 20:00 107 11/21/17 16:00 97 11/21/17 16:00 97.0 100 18 123/78 (93) 95 97.0 11/21/17 12:00 92 11/21/17 12:00 97.5 100 18 117/75 (89) 96 97.5 Intake and Output 11/21/17 11/22/17 19:00 07:00 Intake Total 120 ml Output Total 250 ml Balance -130 ml Intake Oral 120 ml Output Urine Total 250 ml # Voids 2 # Bowel Movements 2 1 Laboratory Tests Test 11/22/17 07:35 11/22/17 09:56 White Blood Count 4.3 K/UL (4.8-10.8) L Red Blood Count 3.10 M/UL (4.70-6.10) L Hemoglobin 8.7 G/DL (14.2-18.0) L Hematocrit 29.3 % (42.0-52.0) L Mean Corpuscular Volume 95 FL (80-99) Mean Corpuscular Hemoglobin 28.2 PG (27.0-31.0) Mean Corpuscular Hemoglobin Concent 29.8 G/DL (32.0-36.0) L Red Cell Distribution Width 19.2 % (11.6-14.8) H Platelet Count 154 K/UL (150-450) Mean Platelet Volume 8.3 FL (6.5-10.1) Neutrophils (%) (Auto) 66.2 % (45.0-75.0) Lymphocytes (%) (Auto) 23.5 % (20.0-45.0) Monocytes (%) (Auto) 9.5 % (1.0-10.0) Eosinophils (%) (Auto) 0.0 % (0.0-3.0) Basophils (%) (Auto) 0.9 % (0.0-2.0) Sodium Level 142 MMOL/L (136-145) Potassium Level 5.7 MMOL/L (3.5-5.1) H Chloride Level 108 MMOL/L (98-107) H Carbon Dioxide Level 18 MMOL/L (21-32) L Anion Gap 16 mmol/L (5-15) H Blood Urea Nitrogen 47 mg/dL (7-18) H Creatinine 2.7 MG/DL (0.55-1.30) H Estimat Glomerular Filtration Rate mL/min (>60) Glucose Level 28 MG/DL (74-106) *L Calcium Level 8.7 MG/DL (8.5-10.1) Magnesium Level 2.1 MG/DL (1.8-2.4) Arterial Blood pH 7.259 (7.350-7.450) Arterial Blood Partial Pressure CO2 27.5 mmHg (35.0-45.0) L Arterial Blood Partial Pressure O2 314.3 mmHg (75.0-100.0) H Arterial Blood HCO3 12.0 mmol/L (22.0-26.0) L Arterial Blood Oxygen Saturation 99.6 % (92.0-98.0) H Arterial Blood Base Excess -13.7 Mahesh Test Positive Height (Feet): 5 Height (Inches): 7.00 Weight (Pounds): 176 Medications Current Medications Medications (Trade) Dose Ordered Sig/Saul Route PRN Reason Start Time Stop Time Status Last Admin Dose Admin Bisacodyl (Dulcolax) 10 mg DAILYPRN PRN RECTAL Constipation 11/21/17 07:15 12/21/17 07:14 Carvedilol (Coreg) 12.5 mg EVERY 12 HOURS ORAL 11/21/17 21:00 12/21/17 20:59 11/21/17 20:42 Dextrose (Dextrose 50%) 25 ml STAT PRN IV Hypoglycemia 11/21/17 07:15 12/21/17 07:14 Dextrose (Dextrose 50%) 50 ml STAT IV 11/22/17 10:15 11/22/17 11:15 Dextrose (Dextrose 50%) 50 ml STAT PRN IV Hypoglycemia 11/21/17 07:15 12/21/17 07:14 11/22/17 09:42 Docusate Sodium (Colace) 100 mg EVERY 12 HOURS ORAL 11/21/17 09:00 12/21/17 08:59 Furosemide (Lasix) 80 mg DAILY ORAL 11/22/17 09:00 12/22/17 08:59 11/22/17 10:34 Hydralazine HCl (Apresoline) 50 mg EVERY 8 HOURS ORAL 11/21/17 22:00 12/21/17 21:59 11/22/17 05:52 Multivitamins (Multivitamins) 1 tab DAILY ORAL 11/22/17 09:00 12/22/17 08:59 11/22/17 10:33 Polyethylene Glycol (Miralax) 17 gm DAILYPRN PRN ORAL Constipation 11/21/17 07:15 12/21/17 07:14 11/21/17 13:25 Thiamine HCl (Vitamin B1) 100 mg DAILY ORAL 11/22/17 09:00 12/22/17 08:59 11/22/17 10:33 Tramadol HCl (Ultram) 50 mg Q4H PRN ORAL PAIN (4-10) 11/21/17 21:51 11/28/17 21:50 11/22/17 05:52 Assessment/Plan Assessment/Plan encephalopathy due to [facility] [place] anxiety ativan prn Ziyad Ledezma MD Nov 22, 2017 10:48
--- NOTE | 2017-11-22 11:13 | Consultation ---
Consult Note Consult Note Is an 81-year-old male who is a very poor historian. He has a history of alcoholic cirrhosis with ascites. Also history rapid A. fib. Noncompliant with his medication. Call 911 because he felt short of breath and abdominal distention. He was admitted here recently and had paracentesis. He doesn't know what his medications are. Apparently not taking them. Denies any other complaint. No chest pain. Worse with exertion. Worse with lying flat. No Known Allergies (Unverified , 08/30/17) Hx Cardiac Problems: Yes - A FIB Hx Hypertension: Yes Hx Gastrointestinal Problems: Yes - Ascites, Cirrhosis, UTI o/e Lethargic arousable data reviewed Assessment/Plan (1) Renal failure acute on chronic -with hyperkalemia (2) Systolic and diastolic CHF, acute Assessment: Left ventricular ejection fraction estimated to be 10-15%. (3) Anemia (4) 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 hypertension (5) Cirrhosis and encephalopathy (6) Atrial fibrillation (7) Hypoglycemia Plan yates- NGT- D10 Kayexelate Lactulose adjust meds for bp Optimize cardiac condition gentle diuresis correct electrolyte imbalances Noel Kim MD Nov 22, 2017 11:13
--- NOTE | 2017-11-22 11:14 | Diagnostic Imaging Report ---
Indications: Ascites Procedure: Informed consent obtained. Ultrasound used to localize optimal puncture site. Sterile prepping and draping over the optimum site. Local anesthesia with 1% lidocaine. Under real-time ultrasound guidance, puncture of the peritoneal space performed using paracentesis needle. Digital image was saved and archived. Stylet removed. Catheter placed to vacuum bottle suction. Fluid was aspirated. Patient tolerated procedure well, without immediate complication. Findings: Followup sonography demonstrates complete resolution of peritoneal fluid Impression: Successful ultrasound-guided paracentesis, yielding 5.9 liters of fluid
[2017-11-22] MEDS ORDERED: Sodium Polystyrene Sulfonate 15gm Powder NG SCH (11:45)
--- NOTE | 2017-11-22 11:46 | Consultation ---
History of Present Illness General Date patient seen: Nov 22, 2017 Time patient seen: 11:35 Chief Complaint: Abdominal Pain Referring physician: BABATUNDE Reason for Consultation: CIRRHOSIS Present Illness HPI Mingo is 81 year old male with abdominal pain and hypoglycemia. No chest pain or sob, no fever. He has abdominal swelling. He has not been on xarelto since wednesday. He is scheduled to have repeat paracentesis on this admission. He has AFIB. He is on rate control at home but currently tachycardic. He has Biventricular failure with severe pulmonary hypertension. Left ventricular ejection fraction estimated to be 10-15%. Allergies: Coded Allergies: No Known Allergies (Unverified , 08/30/17) Medication History Scheduled Carvedilol (Coreg), 12.5 MG ORAL EVERY 12 HOURS Furosemide* (Lasix*), 80 MG ORAL DAILY, (Reported) Hydralazine Hcl* (Hydralazine Hcl*), 50 MG ORAL EVERY 8 HOURS, (Reported) Lisinopril (Lisinopril*), 5 MG ORAL DAILY, (Reported) Multivitamins* (Multivitamins*), 1 TAB ORAL DAILY Rivaroxaban (Xarelto*), 15 MG ORAL HS, (Reported) Spironolactone (Aldactone), 25 MG ORAL DAILY Thiamine Hcl (Vitamin B1*), 100 MG ORAL DAILY Miscellaneous Medications Unable to Obtain Medications (Unable To Obtain Meds), (Reported) Unable to Obtain Medications (Unable To Obtain Meds), (Reported) Patient History Healthcare decision maker Resuscitation status Full Code Advanced Directive on File Review of Systems Constitutional: Reports: weakness Eye: Reports: no symptoms ENT: Reports: no symptoms Respiratory: Reports: shortness of breath Cardiovascular: Reports: no symptoms Gastrointestinal: Reports: abdominal pain, nausea, vomiting, hematemesis Genitourinary: Reports: no symptoms Musculoskeletal: Reports: no symptoms Skin: Reports: no symptoms Psychiatric: Reports: no symptoms Neurological: Reports: no symptoms Endocrine: Reports: no symptoms Hematologic/Lymphatic: Reports: no symptoms Physical Exam General Appearance: no apparent distress, alert Lines, tubes and drains: peripheral HEENT: normocephalic, atraumatic Neck: non-tender, normal alignment Respiratory/Chest: chest wall non-tender, rhonchi - bilaterally Cardiovascular/Chest: normal peripheral pulses, JVD, tachycardia, arrhythmia Abdomen: normal bowel sounds, distended, guarding, rebound, tender, hepatomegaly, splenomegaly Extremities: normal range of motion, non-tender Skin Exam: normal pigmentation Neurologic: sticker on II-XII grossly normal Last 24 Hour Vital Signs Date Time Temp Pulse Resp B/P (MAP) Pulse Ox O2 Delivery O2 Flow Rate FiO2 11/22/17 09:00 91 109/64 11/22/17 05:52 117/77 11/22/17 04:00 97 11/22/17 03:56 97.5 113 20 117/77 (90) 100 97.5 11/22/17 00:00 88 11/22/17 00:00 97.2 113 18 139/96 (110) 100 97.2 11/21/17 22:09 125/86 11/21/17 21:00 Nasal Cannula 2.0 11/21/17 20:42 116 123/78 11/21/17 20:00 97.5 116 18 125/86 (99) 100 97.5 11/21/17 20:00 107 11/21/17 16:00 97 11/21/17 16:00 97.0 100 18 123/78 (93) 95 97.0 11/21/17 12:00 92 11/21/17 12:00 97.5 100 18 117/75 (89) 96 97.5 Intake and Output 11/21/17 11/22/17 19:00 07:00 Intake Total 120 ml Output Total 250 ml Balance -130 ml Intake Oral 120 ml Output Urine Total 250 ml # Voids 2 # Bowel Movements 2 1 Laboratory Tests Test 11/22/17 07:35 11/22/17 09:56 11/22/17 10:00 White Blood Count 4.3 K/UL (4.8-10.8) L Red Blood Count 3.10 M/UL (4.70-6.10) L Hemoglobin 8.7 G/DL (14.2-18.0) L Hematocrit 29.3 % (42.0-52.0) L Mean Corpuscular Volume 95 FL (80-99) Mean Corpuscular Hemoglobin 28.2 PG (27.0-31.0) Mean Corpuscular Hemoglobin Concent 29.8 G/DL (32.0-36.0) L Red Cell Distribution Width 19.2 % (11.6-14.8) H Platelet Count 154 K/UL (150-450) Mean Platelet Volume 8.3 FL (6.5-10.1) Neutrophils (%) (Auto) 66.2 % (45.0-75.0) Lymphocytes (%) (Auto) 23.5 % (20.0-45.0) Monocytes (%) (Auto) 9.5 % (1.0-10.0) Eosinophils (%) (Auto) 0.0 % (0.0-3.0) Basophils (%) (Auto) 0.9 % (0.0-2.0) Sodium Level 142 MMOL/L (136-145) Potassium Level 5.7 MMOL/L (3.5-5.1) H Chloride Level 108 MMOL/L (98-107) H Carbon Dioxide Level 18 MMOL/L (21-32) L Anion Gap 16 mmol/L (5-15) H Blood Urea Nitrogen 47 mg/dL (7-18) H Creatinine 2.7 MG/DL (0.55-1.30) H Estimat Glomerular Filtration Rate mL/min (>60) Glucose Level 28 MG/DL (74-106) *L Calcium Level 8.7 MG/DL (8.5-10.1) Magnesium Level 2.1 MG/DL (1.8-2.4) C-Reactive Protein, Quantitative Pending Arterial Blood pH 7.259 (7.350-7.450) Arterial Blood Partial Pressure CO2 27.5 mmHg (35.0-45.0) L Arterial Blood Partial Pressure O2 314.3 mmHg (75.0-100.0) H Arterial Blood HCO3 12.0 mmol/L (22.0-26.0) L Arterial Blood Oxygen Saturation 99.6 % (92.0-98.0) H Arterial Blood Base Excess -13.7 Mahesh Test Positive Body Fluid Source Pending Body Fluid Volume Pending Body Fluid Appearance Pending Body Fluid RBC Pending Body Fluid Total Nucleated Cells Pending Body Fluid Glucose Pending Body Fluid Albumin Pending Body Fluid Lactate Dehydrogenase Pending Height (Feet): 5 Height (Inches): 7.00 Weight (Pounds): 176 Medications Current Medications Medications (Trade) Dose Ordered Sig/Saul Route PRN Reason Start Time Stop Time Status Last Admin Dose Admin Bisacodyl (Dulcolax) 10 mg DAILYPRN PRN RECTAL Constipation 11/21/17 07:15 12/21/17 07:14 Carvedilol (Coreg) 12.5 mg EVERY 12 HOURS ORAL 11/21/17 21:00 12/21/17 20:59 11/21/17 20:42 Dextrose 1,000 ml @ 40 mls/hr Q24H IV 11/22/17 12:30 12/22/17 12:29 Dextrose (Dextrose 50%) 25 ml STAT PRN IV Hypoglycemia 11/21/17 07:15 12/21/17 07:14 Dextrose (Dextrose 50%) 50 ml STAT IV 11/22/17 11:35 11/22/17 12:30 Dextrose (Dextrose 50%) 50 ml STAT PRN IV Hypoglycemia 11/21/17 07:15 12/21/17 07:14 11/22/17 09:42 Hydralazine HCl (Apresoline) 10 mg Q6HR NG 11/22/17 12:00 12/22/17 11:59 UNV Lactulose (Cephulac) 30 gm THREE TIMES A DAY NG 11/22/17 13:00 12/22/17 12:59 Pantoprazole (Protonix) 40 mg EVERY 12 HOURS IVP 11/22/17 11:30 12/22/17 11:29 UNV Polyethylene Glycol (Miralax) 17 gm DAILYPRN PRN ORAL Constipation 11/21/17 07:15 12/21/17 07:14 11/21/17 13:25 Sodium Polystyrene Sulfonate (Kayexalate) 45 gm ONCE ONCE NG 11/22/17 11:30 11/22/17 11:31 UNV Thiamine HCl 100 mg/Dextrose 56 ml @ 112 mls/hr Q24H IVPB 11/22/17 11:30 12/22/17 11:29 UNV Assessment/Plan Status: stable Assessment/Plan Assessment: 1) Cirrhosis (2) Anemia (3) Iron deficiency (4) Systolic and diastolic CHF, acute on chronic (5) Atrial fibrillation (6) Hypoglycemia Plan: Hold aldactone in setting of RAMONE and hyperkalemia Continue coreg for heart failure and afib Hydralazine/nitro for preload/afterload reduction No indication for cardioversion Paracentesis + Albumin to support BP Recommend EGD to evaluate for varicies when stable Mild diuresis for pulmonary vascular congestion. Defer ICD due to medication non compliance and prognosis <1 year Continue telemetry to evaluate for arrhythmias Patient did not qualify for life vest on previous admission Kieran Cedillo M.D. Nov 22, 2017 11:46
[2017-11-22 12:00] VITALS: BP 107/74
[2017-11-22] MEDS: HydrALAZINE 10mg Tab NG SCH ×2 (12:00→17:12)
--- NOTE | 2017-11-22 13:44 | Diagnostic Imaging Report ---
Indication: NG tube Comparison: None Single view of the abdomen obtained Findings: NG tube is in good position with the distal port and the proximal port both within the stomach. IMPRESSION: NG tube in good position
--- NOTE | 2017-11-22 14:22 | General Progress Note ---
Assessment/Plan Status: stable Assessment/Plan 1. 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 Hepatitis and human immunodeficiency virus are negative. --> Ultrasound of the abdomen from last admission showed cirrhosis/HSM --> Tumor markers pending as well negative from before. --> Likely leukopenia secondary to splenomegaly. Give neupogen if ANC <1000 ==> here for paracentesis --> 11/22: S/P paracentesis, yielding 5.9 liters of fluid --> Current WBC of 4.3, low 2. Anemia due to underlying chronic disease, appears to be stable. --> anemia w/u if hgb worsens --> Current Hgb of 8.7, stable. 3. Coagulopathy, likely related to underlying cirrhosis of the liver. --> VitK prn basi 4. Hyperkalemia, given Kayexalate, currently improved. 5. Biventricular failure with severe pulmonary hypertension. The patient is seen by Cardiology. 6. Ascites, status post paracentesis. The time the note was entered does not necessarily correspond to the time the patient was seen. Subjective Date patient seen: Nov 22, 2017 ROS Limited/Unobtainable: Yes Hematologic/Lymphatic: Reports: anemia Allergies: Coded Allergies: No Known Allergies (Unverified , 08/30/17) All Systems: reviewed and negative except above Subjective S/P paracentesis, yielding 5.9 liters of fluid. Objective Last 24 Hour Vital Signs Date Time Temp Pulse Resp B/P (MAP) Pulse Ox O2 Delivery O2 Flow Rate FiO2 11/22/17 12:00 85 11/22/17 12:00 97.6 81 20 107/74 (85) 100 97.6 11/22/17 09:00 Nasal Cannula 2.0 11/22/17 09:00 91 109/64 11/22/17 08:00 106 11/22/17 08:00 97.5 108 20 126/80 (95) 95 97.5 11/22/17 05:52 117/77 11/22/17 04:00 97 11/22/17 03:56 97.5 113 20 117/77 (90) 100 97.5 11/22/17 00:00 88 11/22/17 00:00 97.2 113 18 139/96 (110) 100 97.2 11/21/17 22:09 125/86 11/21/17 21:00 Nasal Cannula 2.0 11/21/17 20:42 116 123/78 11/21/17 20:00 97.5 116 18 125/86 (99) 100 97.5 11/21/17 20:00 107 11/21/17 16:00 97 11/21/17 16:00 97.0 100 18 123/78 (93) 95 97.0 Intake and Output 11/21/17 11/22/17 19:00 07:00 Intake Total 120 ml Output Total 250 ml Balance -130 ml Intake Oral 120 ml Output Urine Total 250 ml # Voids 2 # Bowel Movements 2 1 Laboratory Tests 11/22/17 07:35: White Blood Count 4.3L, Red Blood Count 3.10L, Hemoglobin 8.7L, Hematocrit 29.3L , Mean Corpuscular Volume 95, Mean Corpuscular Hemoglobin 28.2, Mean Corpuscular Hemoglobin Concent 29.8L, Red Cell Distribution Width 19.2H, Platelet Count 154, Mean Platelet Volume 8.3, Neutrophils (%) (Auto) 66.2, Lymphocytes (%) (Auto) 23.5, Monocytes (%) (Auto) 9.5, Eosinophils (%) (Auto) 0.0, Basophils (%) (Auto) 0.9, Sodium Level 142, Potassium Level 5.7H, Chloride Level 108H, Carbon Dioxide Level 18L, Anion Gap 16H, Blood Urea Nitrogen 47H, Creatinine 2.7H, Estimat Glomerular Filtration Rate , Glucose Level 28*L, Calcium Level 8.7, Magnesium Level 2.1, C-Reactive Protein, Quantitative 3.4H 11/22/17 09:56: Arterial Blood pH 7.259L, Arterial Blood Partial Pressure CO2 27.5L, Arterial Blood Partial Pressure O2 314.3H, Arterial Blood HCO3 12.0L, Arterial Blood Oxygen Saturation 99.6H, Arterial Blood Base Excess -13.7, Mahesh Test Positive 11/22/17 10:00: Body Fluid Source Paracentesis, Body Fluid Volume 4.0, Body Fluid Appearance Yellow/clear, Body Fluid RBC 319, Body Fluid Total Nucleated Cells 35, Body Fluid Polynuclear WBCs (%) 23, Body Fluid Mononuclear WBCs (%) 77, Body Fluid Mesothelial Cells (%) 0, Body Fluid Glucose [Pending], Body Fluid Albumin [ Pending], Body Fluid Lactate Dehydrogenase [Pending] Height (Feet): 5 Height (Inches): 7.00 Weight (Pounds): 176 General Appearance: no apparent distress EENT: PERRL/EOMI Neck: normal alignment Cardiovascular: tachycardia Respiratory/Chest: no respiratory distress Abdomen: soft Christiano Hoffmann MD Nov 22, 2017 14:22
[2017-11-22] MEDS: Pantoprazole Inj IVP SCH ×2 (14:27→20:41)
[2017-11-22] MEDS: Thiamine HCl 100 MG in D5W 55 ML IVPB SCH (14:28)
[2017-11-22] MEDS: Lactulose 20gm/30ml UDC NG SCH ×2 (14:29→17:12)
[2017-11-22] MEDS ORDERED: Phytonadione 1 MG in D5W 55 ML IVPB ONE (14:30)
[2017-11-22] MEDS: Dextrose 10% 1,000 ML IV SCH (15:27)
[2017-11-22 16:00] VITALS: BP 104/72
--- NOTE | 2017-11-22 17:52 | General Progress Note ---
Assessment/Plan Status: deteriorating Status Narrative 81 yo man with decompensated cirrhosis, chronic systolic heart failure, atrial fibrillation with encephalopathy Assessment/Plan 1) Acute encephalopathy 2) Acute hypoxemic respiratory failure 3) Hypoglycemia 4) Decompensated cirrhosis -check ABG -Paracentesis today given large volume of ascites -GI consult for decompensated cirrhosis management -lactulose -O2 support as needed -Glucose given- follow FBG's closely. Start IVFs with dextrose -Psychiatry consult 4) Acute on chronic renal failure Hyperkalemia -Renal consult -Spirinolactone discontinued -medical treatment of hyperkalemia 5) Acute on chronic systolic heart failure -Cardiology consult -continue beta dominguez 6) Pancytopenia -Hematology consult to see -likely secondary to cirrhosis -continue to monitor DVT Prophylaxis: scd's Code status: full Hospital Classification declaration: Based on this initial evaluation, and depending on the patient's clinical course, I anticipate that this patient will require hospitalization for 2-3 days. Disposition: Once the patient is stable to leave the hospital, I anticipate the patient will likely be discharged to the following environment: Home I spent 45 minutes on this patient's case, and 25minutes was dedicated to counseling and/or care coordination. Time of note may not reflect time of encounter. Subjective Date patient seen: Nov 22, 2017 Time patient seen: 12:55 ROS Limited/Unobtainable: Yes Constitutional: Reports: no symptoms HEENT: Reports: no symptoms Cardiovascular: Reports: no symptoms Respiratory: Reports: shortness of breath Gastrointestinal/Abdominal: Reports: abdomen distended, abdominal pain, nausea , poor appetite Genitourinary: Reports: no symptoms Neurologic/Psychiatric: Reports: weakness Endocrine: Reports: no symptoms Hematologic/Lymphatic: Reports: no symptoms, anemia Allergies: Coded Allergies: No Known Allergies (Unverified , 08/30/17) All Systems: reviewed and negative except above Subjective Events of overnight noted Patient more somnolent this AM Glucose low on labs- received D50 O2 requirement increased with somnolence and abdominal distension For paracentesis Objective Last 24 Hour Vital Signs Date Time Temp Pulse Resp B/P (MAP) Pulse Ox O2 Delivery O2 Flow Rate FiO2 11/22/17 17:12 104/72 11/22/17 12:00 85 11/22/17 12:00 108/72 11/22/17 12:00 97.6 81 20 107/74 (85) 100 97.6 11/22/17 09:00 Nasal Cannula 2.0 11/22/17 09:00 91 109/64 11/22/17 08:00 106 11/22/17 08:00 97.5 108 20 126/80 (95) 95 97.5 11/22/17 05:52 117/77 11/22/17 04:00 97 11/22/17 03:56 97.5 113 20 117/77 (90) 100 97.5 11/22/17 00:00 88 11/22/17 00:00 97.2 113 18 139/96 (110) 100 97.2 11/21/17 22:09 125/86 11/21/17 21:00 Nasal Cannula 2.0 11/21/17 20:42 116 123/78 11/21/17 20:00 97.5 116 18 125/86 (99) 100 97.5 11/21/17 20:00 107 Intake and Output 11/21/17 11/22/17 19:00 07:00 Intake Total 120 ml Output Total 250 ml Balance -130 ml Intake Oral 120 ml Output Urine Total 250 ml # Voids 2 # Bowel Movements 2 1 Laboratory Tests 11/22/17 07:35: White Blood Count 4.3L, Red Blood Count 3.10L, Hemoglobin 8.7L, Hematocrit 29.3L , Mean Corpuscular Volume 95, Mean Corpuscular Hemoglobin 28.2, Mean Corpuscular Hemoglobin Concent 29.8L, Red Cell Distribution Width 19.2H, Platelet Count 154, Mean Platelet Volume 8.3, Neutrophils (%) (Auto) 66.2, Lymphocytes (%) (Auto) 23.5, Monocytes (%) (Auto) 9.5, Eosinophils (%) (Auto) 0.0, Basophils (%) (Auto) 0.9, Sodium Level 142, Potassium Level 5.7H, Chloride Level 108H, Carbon Dioxide Level 18L, Anion Gap 16H, Blood Urea Nitrogen 47H, Creatinine 2.7H, Estimat Glomerular Filtration Rate , Glucose Level 28*L, Calcium Level 8.7, Magnesium Level 2.1, C-Reactive Protein, Quantitative 3.4H 11/22/17 09:56: Arterial Blood pH 7.259L, Arterial Blood Partial Pressure CO2 27.5L, Arterial Blood Partial Pressure O2 314.3H, Arterial Blood HCO3 12.0L, Arterial Blood Oxygen Saturation 99.6H, Arterial Blood Base Excess -13.7, Mahesh Test Positive 11/22/17 10:00: Body Fluid Source Paracentesis, Body Fluid Volume 4.0, Body Fluid Appearance Yellow/clear, Body Fluid RBC 319, Body Fluid Total Nucleated Cells 35, Body Fluid Polynuclear WBCs (%) 23, Body Fluid Mononuclear WBCs (%) 77, Body Fluid Mesothelial Cells (%) 0, Body Fluid Glucose [Pending], Body Fluid Albumin [ Pending], Body Fluid Lactate Dehydrogenase [Pending] Height (Feet): 5 Height (Inches): 7.00 Weight (Pounds): 176 General Appearance: lethargic, confused, mild distress EENT: PERRL/EOMI Neck: non-tender, supple Cardiovascular: normal peripheral pulses, normal rate Respiratory/Chest: chest wall non-tender, decreased breath sounds Abdomen: decreased bowel sounds, distended, other - +fluid wave Pelvis: normal external exam Extremities: normal range of motion Edema: no edema noted Arm (L), no edema noted Arm (R) Edema: mild edema Neurologic: disoriented, other - somonlent Skin: normal pigmentation Lymphatic: normal anterior cervical (L), normal anterior cervical (R) Marshall Martinez M.D. Nov 22, 2017 17:52
[2017-11-22 18:20] LABS: APPEARANCE,URINE SLIGHTLY CLOUDY; BILIRUBIN, URINE NEGATIVE (NEGATIVE); COLOR,URINE BROWN; GLUCOSE, URINE (UA) NEGATIVE (NEGATIVE); KETONES,URINE 1+ (NEGATIVE); LEUKOCYTE ESTERASE ,URINE 3+ (NEGATIVE); NITRITE,URINE NEGATIVE (NEGATIVE); PH,URINE 5 (4.5-8.0); PROTEIN,URINE 3+ (NEGATIVE); UROBILINOGEN,URINE NORMAL MG/DL (0.0-1.0)
[2017-11-22 20:00] VITALS: BP 99/47
[2017-11-23] VITALS: BP 117/65
[2017-11-23 04:00] VITALS: BP 104/63
[2017-11-23 05:07] LABS: BASOPHILS % (AUTO) 0.4 % (0.0-2.0); EOSINOPHILS % (AUTO) 0.1 % (0.0-3.0); HEMATOCRIT 29.2 % (42.0-52.0); HEMOGLOBIN 8.8 G/DL (14.2-18.0); LYMPHOCYTES % (AUTO) 14.1 % (20.0-45.0); MEAN CORPUSCULAR VOLUME 94 FL (80-99); MONOCYTES % (AUTO) 7.1 % (1.0-10.0); NEUTROPHILS % (AUTO) 78.3 % (45.0-75.0); PLATELET COUNT 107 K/UL (150-450); RED BLOOD COUNT 3.09 M/UL (4.70-6.10); RED CELL DISTRIBUTION WIDTH 18.3 % (11.6-14.8); WHITE BLOOD COUNT 4.7 K/UL (4.8-10.8)
[2017-11-23] MEDS: HydrALAZINE 10mg Tab NG SCH ×4 (05:30→17:49)
[2017-11-23 05:41] LABS: AMMONIA 19 umol/L (11-32)
[2017-11-23 05:51] LABS: GAMMA GLUTAMYL TRANSPEPTIDASE 297 U/L (5-85); PHOSPHORUS 6.5 MG/DL (2.5-4.9)
[2017-11-23 05:54] LABS: ALANINE AMINOTRANSFERASE 578 U/L (12-78); ALBUMIN 2.8 G/DL (3.4-5.0); ALBUMIN/GLOBULIN RATIO 0.6 (1.0-2.7); ALKALINE PHOSPHATASE 205 U/L (46-116); ANION GAP 18 mmol/L (5-15); ASPARTATE AMINO TRANSFERASE 1129 U/L (15-37); BLOOD UREA NITROGEN 58 mg/dL (7-18); CALCIUM 8.2 MG/DL (8.5-10.1); CARBON DIOXIDE 17 MMOL/L (21-32); CHLORIDE 106 MMOL/L (98-107); CHOLESTEROL 71 MG/DL (< 200); FERRITIN 552 NG/ML (8-388); HDL CHOLESTEROL 48 MG/DL (40-60); POTASSIUM 5.7 MMOL/L (3.5-5.1); SODIUM 141 MMOL/L (136-145); TRIGLYCERIDES 22 MG/DL (30-150)
[2017-11-23 05:56] LABS: BILIRUBIN,DIRECT 1.1 MG/DL (0.0-0.3)
[2017-11-23 05:59] LABS: INR 2.9 (0.9-1.1)
[2017-11-23 06:27] LABS: % IRON SATURATION 21 % (15-50); IRON 44 ug/dL (50-175); TOTAL IRON BINDING CAPACITY 212 ug/dL (250-450)
[2017-11-23 08:00] VITALS: BP 106/84
[2017-11-23] MEDS ORDERED: Sodium Polystyrene Sulfonate 15gm Powder NG SCH (08:45)
--- NOTE | 2017-11-23 09:33 | General Progress Note ---
Assessment/Plan Assessment/Plan 1. 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 Hepatitis and human immunodeficiency virus are negative. --> Ultrasound of the abdomen from last admission showed cirrhosis/HSM --> Tumor markers pending as well negative from before. --> Likely leukopenia secondary to splenomegaly. Give neupogen if ANC <1000 ==> s/p paracentesis, 11/22: S/P paracentesis, yielding 5.9 liters of fluid. await cytology though in prior was negative --> Current WBC of 4.3, low 2. Anemia due to underlying chronic disease, appears to be stable. --> anemia w/u if hgb worsens --> Current Hgb of 8.7, stable. 3. Coagulopathy, likely related to underlying cirrhosis of the liver. --> VitK prn basis, given by GI 4. Hyperkalemia, given Kayexalate, currently improved. 5. Biventricular failure with severe pulmonary hypertension. The patient is seen by Cardiology. 6. Ascites, status post paracentesis. The time the note was entered does not necessarily correspond to the time the patient was seen. Subjective Constitutional: Denies: no symptoms, chills, diaphoresis, fever, malaise, weakness, other HEENT: Denies: no symptoms, eye pain, blurred vision, tearing, double vision, ear pain, ear discharge, nose pain, nose congestion, throat pain, throat swelling, mouth pain, mouth swelling, other Cardiovascular: Denies: no symptoms, chest pain, edema, irregular heart rate, lightheadedness, palpitations, syncope, other Respiratory: Denies: no symptoms, cough, orthopnea, shortness of breath, SOB with excertion, SOB at rest, sputum, stridor, wheezing, other Gastrointestinal/Abdominal: Denies: no symptoms, abdomen distended, abdominal pain, black stools, tarry stools, blood in stool, constipated, diarrhea, difficulty swallowing, nausea, poor appetite, poor fluid intake, rectal bleeding , vomiting, other Genitourinary: Denies: no symptoms, burning, discharge, frequency, flank pain, hematuria, incontinence, pain, urgency, other Neurologic/Psychiatric: Denies: no symptoms, anxiety, depressed, emotional problems, headache, numbness, paresthesia, pre-existing deficit, seizure, tingling, tremors, weakness, other Endocrine: Reports: no symptoms Hematologic/Lymphatic: Reports: no symptoms Allergies: Coded Allergies: No Known Allergies (Unverified , 08/30/17) Subjective S/P paracentesis, yielding 5.9 liters of fluid, done yesterday, continues to be encephalopathic Objective Last 24 Hour Vital Signs Date Time Temp Pulse Resp B/P (MAP) Pulse Ox O2 Delivery O2 Flow Rate FiO2 11/23/17 08:00 96.1 80 18 106/84 (91) 100 96.1 11/23/17 05:30 104/63 11/23/17 04:00 97.0 87 20 104/63 (77) 93 97.0 11/23/17 04:00 92 11/23/17 00:00 89 11/23/17 00:00 117/65 11/23/17 00:00 97.0 83 20 117/65 (82) 99 97.0 11/22/17 22:04 93 111/72 11/22/17 21:00 Nasal Cannula 2.0 11/22/17 20:00 96.8 85 20 99/47 (64) 99 96.8 11/22/17 20:00 85 11/22/17 17:12 104/72 11/22/17 16:00 87 11/22/17 16:00 96.9 84 20 104/72 (83) 100 96.9 11/22/17 12:00 85 11/22/17 12:00 108/72 11/22/17 12:00 97.6 81 20 107/74 (85) 100 97.6 Intake and Output 11/22/17 11/23/17 19:00 07:00 Intake Total 40 ml 480 ml Output Total 0 ml 200 ml Balance 40 ml 280 ml IV Total 40 ml 480 ml Output Urine Total 0 ml 200 ml # Bowel Movements 1 Laboratory Tests 11/22/17 09:56: Arterial Blood pH 7.259L, Arterial Blood Partial Pressure CO2 27.5L, Arterial Blood Partial Pressure O2 314.3H, Arterial Blood HCO3 12.0L, Arterial Blood Oxygen Saturation 99.6H, Arterial Blood Base Excess -13.7, Mahesh Test Positive 11/22/17 10:00: Body Fluid Source Paracentesis, Body Fluid Volume 4.0, Body Fluid Appearance Yellow/clear, Body Fluid RBC 319, Body Fluid Total Nucleated Cells 35, Body Fluid Polynuclear WBCs (%) 23, Body Fluid Mononuclear WBCs (%) 77, Body Fluid Mesothelial Cells (%) 0, Body Fluid Glucose [Pending], Body Fluid Albumin [ Pending], Body Fluid Lactate Dehydrogenase [Pending] 11/22/17 17:30: Urine Color Brown, Urine Appearance Slightly cloudy, Urine pH 5, Urine Specific [place] 1.025, Urine Protein 3+H, Urine Glucose (UA) Negative, Urine Ketones 1+H , Urine Blood 5+H, Urine Nitrite Negative, Urine Bilirubin Negative, Urine Urobilinogen Normal, Urine Leukocyte Esterase 3+H, Urine RBC 20-30H, Urine WBC 10-15H, Urine Squamous Epithelial Cells None, Urine Amorphous Sediment ModerateH , Urine Bacteria ModerateH, Urine Random Sodium < 20L 11/23/17 04:14: White Blood Count 4.7L, Red Blood Count 3.09L, Hemoglobin 8.8L, Hematocrit 29.2L , Mean Corpuscular Volume 94, Mean Corpuscular Hemoglobin 28.3, Mean Corpuscular Hemoglobin Concent 30.1L, Red Cell Distribution Width 18.3H, Platelet Count 107L, Mean Platelet Volume 9.3, Neutrophils (%) (Auto) 78.3H, Lymphocytes (%) (Auto) 14.1L, Monocytes (%) (Auto) 7.1, Eosinophils (%) (Auto) 0.1, Basophils (%) (Auto) 0.4, Prothrombin Time 28.6H, Prothromb Time International Ratio 2.9H, Activated Partial Thromboplast Time 35H, Sodium Level 141, Potassium Level 5.7H, Chloride Level 106, Carbon Dioxide Level 17L, Anion Gap 18H, Blood Urea Nitrogen 58H, Creatinine 3.0H, Estimat Glomerular Filtration Rate , Glucose Level 86, Uric Acid 10.5H, Calcium Level 8.2L, Phosphorus Level 6.5H, Magnesium Level 2.1, Iron Level 44L, Total Iron Binding Capacity 212L, Percent Iron Saturation 21, Unsaturated Iron Binding 168, Ferritin 552H, Total Bilirubin 2.0H, Direct Bilirubin 1.1H, Gamma Glutamyl Transpeptidase 297H, Aspartate Amino Transf (AST/SGOT) 1129H, Alanine Aminotransferase (ALT/SGPT) 578H, Alkaline Phosphatase 205H, Ammonia 19, Troponin I 0.064H, Pro-B-Type Natriuretic Peptide > 19139N, Total Protein 7.4, Albumin 2.8L, Globulin 4.6, Albumin/Globulin Ratio 0.6L, Triglycerides Level 22L , Cholesterol Level 71, LDL Cholesterol 21, HDL Cholesterol 48, Cholesterol/HDL Ratio 1.5L, Lipase 303, Vitamin B12 Level > 2000H, Folate 19.9, Thyroid Stimulating Hormone (TSH) 2.115, Cortisol AM Sample [Pending] 11/23/17 05:30: Urine Eosinophils [Pending] Height (Feet): 5 Height (Inches): 7.00 Weight (Pounds): 176 General Appearance: alert EENT: normal ENT inspection Neck: supple Cardiovascular: regular rhythm Respiratory/Chest: no respiratory distress Abdomen: no organomegaly Extremities: normal inspection Edema: 1+ Leg (L), 1+ Leg (R) Edema: mild edema Neurologic: alert Christiano Hoffmann MD Nov 23, 2017 09:33
[2017-11-23] MEDS: Pantoprazole Inj IVP SCH ×2 (09:49→21:00)
[2017-11-23] MEDS: Lactulose 20gm/30ml UDC NG SCH ×3 (09:50→17:49)
[2017-11-23] MEDS: Carvedilol 12.5mg tab ORAL SCH (09:50)
[2017-11-23] MEDS: Imdur 30mg tab ORAL SCH (09:50)
[2017-11-23] MEDS ORDERED: Digoxin Elixir 0.125mg NG SCH (10:15)
--- NOTE | 2017-11-23 10:16 | Nephrology Progress Note ---
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 (3) Anemia (4) 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 hypertension (5) Cirrhosis and encephalopathy (6) Atrial fibrillation (7) Hypoglycemia ( elevated liver enzymes) Plan yates- NGT- D10 Kayexelate again today- midodrine- Digoxin- Nitrates- Lactulose adjust meds for bp Optimize cardiac condition gentle diuresis correct electrolyte imbalances Subjective ROS Limited/Unobtainable: No Constitutional: Reports: malaise, other - more responsive Objective Objective Last 24 Hour Vital Signs Date Time Temp Pulse Resp B/P (MAP) Pulse Ox O2 Delivery O2 Flow Rate FiO2 11/23/17 09:50 106/84 11/23/17 09:50 80 106/84 11/23/17 08:00 96.1 80 18 106/84 (91) 100 96.1 11/23/17 05:30 104/63 11/23/17 04:00 97.0 87 20 104/63 (77) 93 97.0 11/23/17 04:00 92 11/23/17 00:00 89 11/23/17 00:00 117/65 11/23/17 00:00 97.0 83 20 117/65 (82) 99 97.0 11/22/17 22:04 93 111/72 11/22/17 21:00 Nasal Cannula 2.0 11/22/17 20:00 96.8 85 20 99/47 (64) 99 96.8 11/22/17 20:00 85 11/22/17 17:12 104/72 11/22/17 16:00 87 11/22/17 16:00 96.9 84 20 104/72 (83) 100 96.9 11/22/17 12:00 85 11/22/17 12:00 108/72 11/22/17 12:00 97.6 81 20 107/74 (85) 100 97.6 Intake and Output 11/22/17 11/23/17 19:00 07:00 Intake Total 40 ml 480 ml Output Total 0 ml 200 ml Balance 40 ml 280 ml IV Total 40 ml 480 ml Output Urine Total 0 ml 200 ml # Bowel Movements 1 Laboratory Tests 11/22/17 17:30: Urine Color Brown, Urine Appearance Slightly cloudy, Urine pH 5, Urine Specific [place] 1.025, Urine Protein 3+H, Urine Glucose (UA) Negative, Urine Ketones 1+H , Urine Blood 5+H, Urine Nitrite Negative, Urine Bilirubin Negative, Urine Urobilinogen Normal, Urine Leukocyte Esterase 3+H, Urine RBC 20-30H, Urine WBC 10-15H, Urine Squamous Epithelial Cells None, Urine Amorphous Sediment ModerateH , Urine Bacteria ModerateH, Urine Random Sodium < 20L 11/23/17 04:14: White Blood Count 4.7L, Red Blood Count 3.09L, Hemoglobin 8.8L, Hematocrit 29.2L , Mean Corpuscular Volume 94, Mean Corpuscular Hemoglobin 28.3, Mean Corpuscular Hemoglobin Concent 30.1L, Red Cell Distribution Width 18.3H, Platelet Count 107L, Mean Platelet Volume 9.3, Neutrophils (%) (Auto) 78.3H, Lymphocytes (%) (Auto) 14.1L, Monocytes (%) (Auto) 7.1, Eosinophils (%) (Auto) 0.1, Basophils (%) (Auto) 0.4, Prothrombin Time 28.6H, Prothromb Time International Ratio 2.9H, Activated Partial Thromboplast Time 35H, Sodium Level 141, Potassium Level 5.7H, Chloride Level 106, Carbon Dioxide Level 17L, Anion Gap 18H, Blood Urea Nitrogen 58H, Creatinine 3.0H, Estimat Glomerular Filtration Rate , Glucose Level 86, Uric Acid 10.5H, Calcium Level 8.2L, Phosphorus Level 6.5H, Magnesium Level 2.1, Iron Level 44L, Total Iron Binding Capacity 212L, Percent Iron Saturation 21, Unsaturated Iron Binding 168, Ferritin 552H, Total Bilirubin 2.0H, Direct Bilirubin 1.1H, Gamma Glutamyl Transpeptidase 297H, Aspartate Amino Transf (AST/SGOT) 1129H, Alanine Aminotransferase (ALT/SGPT) 578H, Alkaline Phosphatase 205H, Ammonia 19, Troponin I 0.064H, Pro-B-Type Natriuretic Peptide > 30036H, Total Protein 7.4, Albumin 2.8L, Globulin 4.6, Albumin/Globulin Ratio 0.6L, Triglycerides Level 22L , Cholesterol Level 71, LDL Cholesterol 21, HDL Cholesterol 48, Cholesterol/HDL Ratio 1.5L, Lipase 303, Vitamin B12 Level > 2000H, Folate 19.9, Thyroid Stimulating Hormone (TSH) 2.115, Cortisol AM Sample [Pending] 11/23/17 05:30: Urine Eosinophils [Pending] Height (Feet): 5 Height (Inches): 7.00 Weight (Pounds): 176 Noel Kim MD Nov 23, 2017 10:16
[2017-11-23] MEDS: Allopurinol 100mg Tab NG SCH (11:17)
[2017-11-23] MEDS: Dextrose 10% 1,000 ML IV SCH (11:51)
[2017-11-23] MEDS: cefTRIAXone 1 GM in D5W 55 ML IVPB SCH (11:51)
[2017-11-23 12:00] VITALS: BP 114/71
--- NOTE | 2017-11-23 12:55 | GI Progress Note ---
Assessment/Plan Problems: (1) Hepatic encephalopathy ICD Codes: K72.90 - Hepatic failure, unspecified without coma SNOMED: [id number] (2) Cirrhosis ICD Codes: K74.60 - Unspecified cirrhosis of liver SNOMED: 96707674 Qualifiers: Qualified Codes: K70.31 - Alcoholic cirrhosis of liver with ascites (3) Anemia ICD Codes: D64.9 - Anemia, unspecified SNOMED: [id number] Qualifiers: Qualified Codes: D64.9 - Anemia, unspecified Status: unchanged Status Narrative Discussed with Dr. Choudhary. Assessment/Plan paracentesis pending today >> r/o SBP hepatitis panel on last admission negative OB stool negative liver shock Discriminant function = 84.8 points >> Poor Prognosis.Discriminant Function> 32 points indicates poor prognosis and patient may benefit from glucocorticoid therapy. HRS start prednisone 40mg daily start midodrine 7.5mg, titrate daily by 2.5mg to goal of 15mg. start octreotide gtt monitor H&H, prn transfusions bowel regime titrate lactulose, add xifaxan ppi albumin x3 days hold lasix given elevated creatinine levels NGT placement, okay to remove once patient becomes more alert. fu labs, NH3 The patient was seen and examined at bedside and all new and available data was reviewed in the patients chart. I agree with the above findings, impression and plan. (Patient seen earlier today. Signature stamp does not reflect patient encounter time.). - Robin Choudhary MD Subjective Gastrointestinal/Abdominal: Reports: no symptoms Objective Last 24 Hour Vital Signs Date Time Temp Pulse Resp B/P (MAP) Pulse Ox O2 Delivery O2 Flow Rate FiO2 11/23/17 12:00 96.1 80 18 114/71 (85) 100 96.1 11/23/17 11:17 80 11/23/17 09:50 106/84 11/23/17 09:50 80 106/84 11/23/17 09:00 Nasal Cannula 2.0 11/23/17 08:00 79 11/23/17 08:00 96.1 80 18 106/84 (91) 100 96.1 11/23/17 05:30 104/63 11/23/17 04:00 97.0 87 20 104/63 (77) 93 97.0 11/23/17 04:00 92 11/23/17 00:00 89 11/23/17 00:00 117/65 11/23/17 00:00 97.0 83 20 117/65 (82) 99 97.0 11/22/17 22:04 93 111/72 11/22/17 21:00 Nasal Cannula 2.0 11/22/17 20:00 96.8 85 20 99/47 (64) 99 96.8 11/22/17 20:00 85 11/22/17 17:12 104/72 11/22/17 16:00 87 11/22/17 16:00 96.9 84 20 104/72 (83) 100 96.9 Intake and Output 11/22/17 11/23/17 19:00 07:00 Intake Total 40 ml 480 ml Output Total 0 ml 200 ml Balance 40 ml 280 ml IV Total 40 ml 480 ml Output Urine Total 0 ml 200 ml # Bowel Movements 1 Laboratory Tests Test 11/22/17 17:30 11/23/17 04:14 11/23/17 05:30 11/23/17 10:41 Urine Color Brown Urine Appearance Slightly cloudy Urine pH 5 (4.5-8.0) Urine Specific [place] 1.025 (1.005-1.035) Urine Protein 3+ (NEGATIVE) H Urine Glucose (UA) Negative (NEGATIVE) Urine Ketones 1+ (NEGATIVE) H Urine Blood 5+ (NEGATIVE) H Urine Nitrite Negative (NEGATIVE) Urine Bilirubin Negative (NEGATIVE) Urine Urobilinogen Normal MG/DL (0.0-1.0) Urine Leukocyte Esterase 3+ (NEGATIVE) H Urine RBC 20-30 /HPF (0 - 0) H Urine WBC 10-15 /HPF (0 - 0) H Urine Squamous Epithelial Cells None /LPF (NONE/OCC) Urine Amorphous Sediment Moderate /LPF (NONE) H Urine Bacteria Moderate /HPF (NONE) H Urine Random Sodium < 20 mmol/L (20-110) L White Blood Count 4.7 K/UL (4.8-10.8) L Red Blood Count 3.09 M/UL (4.70-6.10) L Hemoglobin 8.8 G/DL (14.2-18.0) L Hematocrit 29.2 % (42.0-52.0) L Mean Corpuscular Volume 94 FL (80-99) Mean Corpuscular Hemoglobin 28.3 PG (27.0-31.0) Mean Corpuscular Hemoglobin Concent 30.1 G/DL (32.0-36.0) L Red Cell Distribution Width 18.3 % (11.6-14.8) H Platelet Count 107 K/UL (150-450) L Mean Platelet Volume 9.3 FL (6.5-10.1) Neutrophils (%) (Auto) 78.3 % (45.0-75.0) H Lymphocytes (%) (Auto) 14.1 % (20.0-45.0) L Monocytes (%) (Auto) 7.1 % (1.0-10.0) Eosinophils (%) (Auto) 0.1 % (0.0-3.0) Basophils (%) (Auto) 0.4 % (0.0-2.0) Prothrombin Time 28.6 SEC (9.30-11.50) H Prothromb Time International Ratio 2.9 (0.9-1.1) H Activated Partial Thromboplast Time 35 SEC (23-33) H Sodium Level 141 MMOL/L (136-145) Potassium Level 5.7 MMOL/L (3.5-5.1) H Chloride Level 106 MMOL/L (98-107) Carbon Dioxide Level 17 MMOL/L (21-32) L Anion Gap 18 mmol/L (5-15) H Blood Urea Nitrogen 58 mg/dL (7-18) H Creatinine 3.0 MG/DL (0.55-1.30) H Estimat Glomerular Filtration Rate mL/min (>60) Glucose Level 86 MG/DL (74-106) Uric Acid 10.5 MG/DL (2.6-7.2) H Calcium Level 8.2 MG/DL (8.5-10.1) L Phosphorus Level 6.5 MG/DL (2.5-4.9) H Magnesium Level 2.1 MG/DL (1.8-2.4) Iron Level 44 ug/dL (50-175) L Total Iron Binding Capacity 212 ug/dL (250-450) L Percent Iron Saturation 21 % (15-50) Unsaturated Iron Binding 168 ug/dL (112-346) Ferritin 552 NG/ML (8-388) H Total Bilirubin 2.0 MG/DL (0.2-1.0) H Direct Bilirubin 1.1 MG/DL (0.0-0.3) H Gamma Glutamyl Transpeptidase 297 U/L (5-85) H Aspartate Amino Transf (AST/SGOT) 1129 U/L (15-37) H Alanine Aminotransferase (ALT/SGPT) 578 U/L (12-78) H Alkaline Phosphatase 205 U/L (46-116) H Ammonia 19 umol/L (11-32) Troponin I 0.064 ng/mL (0.000-0.056) C-Reactive Protein, Quantitative 3.5 mg/dL (0.00-0.90) H Pro-B-Type Natriuretic Peptide > 44396 pg/mL (0-125) H Total Protein 7.4 G/DL (6.4-8.2) Albumin 2.8 G/DL (3.4-5.0) L Globulin 4.6 g/dL Albumin/Globulin Ratio 0.6 (1.0-2.7) L Triglycerides Level 22 MG/DL (30-150) L Cholesterol Level 71 MG/DL (< 200) LDL Cholesterol 21 mg/dL (<100) HDL Cholesterol 48 MG/DL (40-60) Cholesterol/HDL Ratio 1.5 (3.3-4.4) L Lipase 303 U/L (73-393) Vitamin B12 Level > 2000 PG/ML (193-986) H Folate 19.9 NG/ML (8.6-58.9) Thyroid Stimulating Hormone (TSH) 2.115 uiU/mL (0.358-3.740) Cortisol AM Sample Pending Urine Eosinophils None seen (NONE SEEN) Stool Occult Blood Positive (NEGATIVE) Microbiology Date/Time Source Procedure Growth Status 11/22/17 17:30 Urine,Clean Catch Urine Culture - Preliminary Streptococcus Species Resulted Height (Feet): 5 Height (Inches): 7.00 Weight (Pounds): 176 General Appearance: WD/WN, no apparent distress, alert Cardiovascular: normal rate Respiratory/Chest: normal breath sounds, no respiratory distress Abdominal Exam: normal bowel sounds, non tender, soft Extremities: non-tender Chepe Wolf NP Nov 23, 2017 12:55
--- NOTE | 2017-11-23 13:16 | General Progress Note ---
Assessment/Plan Status: not improved Assessment/Plan 1) Acute encephalopathy 2) Acute hypoxemic respiratory failure 3) Hypoglycemia 4) Decompensated cirrhosis -check ABG -s/p large volume paracentesis 11/22 with 5.7 L -GI consulted for decompensated cirrhosis management- recs appreciated -lactulose, steroids, octreotride, midodrine -albumin x 3 days -O2 support as needed -Psychiatry consulted- recs appreciated 4) Acute on chronic renal failure Hyperkalemia -Renal consult- recs appreciated -Spirinolactone discontinued -Adkins inserted -gentle diureses -medical treatment of hyperkalemia 5) Acute on chronic systolic heart failure -Cardiology consulted- recs appreciated -continue beta dominguez 6) Pancytopenia -Hematology consulted- recs appreciated -likely secondary to cirrhosis -continue to monitor DVT Prophylaxis: scd's Code status: full Hospital Classification declaration: Based on this initial evaluation, and depending on the patient's clinical course, I anticipate that this patient will require hospitalization for 2-3 days. Disposition: Once the patient is stable to leave the hospital, I anticipate the patient will likely be discharged to the following environment: Home I spent 45 minutes on this patient's case, and 25minutes was dedicated to counseling and/or care coordination. Time of note may not reflect time of encounter. Subjective Date patient seen: Nov 23, 2017 Time patient seen: 13:30 ROS Limited/Unobtainable: No Constitutional: Reports: malaise, weakness HEENT: Reports: no symptoms Cardiovascular: Reports: palpitations Respiratory: Reports: SOB with excertion Gastrointestinal/Abdominal: Reports: abdomen distended, abdominal pain Genitourinary: Reports: no symptoms Neurologic/Psychiatric: Reports: other Endocrine: Reports: other - hypoglycemia Hematologic/Lymphatic: Reports: anemia Allergies: Coded Allergies: No Known Allergies (Unverified , 08/30/17) Subjective Events of overnight noted Patient more somnolent this AM Glucose low on labs- received D50 O2 requirement increased with somnolence and abdominal distension For paracentesis Objective Last 24 Hour Vital Signs Date Time Temp Pulse Resp B/P (MAP) Pulse Ox O2 Delivery O2 Flow Rate FiO2 11/23/17 12:54 114/71 11/23/17 12:00 96.1 80 18 114/71 (85) 100 96.1 11/23/17 12:00 79 11/23/17 11:17 80 11/23/17 09:50 106/84 11/23/17 09:50 80 106/84 11/23/17 09:00 Nasal Cannula 2.0 11/23/17 08:00 79 11/23/17 08:00 96.1 80 18 106/84 (91) 100 96.1 11/23/17 05:30 104/63 11/23/17 04:00 97.0 87 20 104/63 (77) 93 97.0 11/23/17 04:00 92 11/23/17 00:00 89 11/23/17 00:00 117/65 11/23/17 00:00 97.0 83 20 117/65 (82) 99 97.0 11/22/17 22:04 93 111/72 11/22/17 21:00 Nasal Cannula 2.0 11/22/17 20:00 96.8 85 20 99/47 (64) 99 96.8 11/22/17 20:00 85 11/22/17 17:12 104/72 11/22/17 16:00 87 11/22/17 16:00 96.9 84 20 104/72 (83) 100 96.9 Intake and Output 11/22/17 11/23/17 19:00 07:00 Intake Total 40 ml 480 ml Output Total 0 ml 200 ml Balance 40 ml 280 ml IV Total 40 ml 480 ml Output Urine Total 0 ml 200 ml # Bowel Movements 1 Laboratory Tests 11/22/17 17:30: Urine Color Brown, Urine Appearance Slightly cloudy, Urine pH 5, Urine Specific [place] 1.025, Urine Protein 3+H, Urine Glucose (UA) Negative, Urine Ketones 1+H , Urine Blood 5+H, Urine Nitrite Negative, Urine Bilirubin Negative, Urine Urobilinogen Normal, Urine Leukocyte Esterase 3+H, Urine RBC 20-30H, Urine WBC 10-15H, Urine Squamous Epithelial Cells None, Urine Amorphous Sediment ModerateH , Urine Bacteria ModerateH, Urine Random Sodium < 20L 11/23/17 04:14: White Blood Count 4.7L, Red Blood Count 3.09L, Hemoglobin 8.8L, Hematocrit 29.2L , Mean Corpuscular Volume 94, Mean Corpuscular Hemoglobin 28.3, Mean Corpuscular Hemoglobin Concent 30.1L, Red Cell Distribution Width 18.3H, Platelet Count 107L, Mean Platelet Volume 9.3, Neutrophils (%) (Auto) 78.3H, Lymphocytes (%) (Auto) 14.1L, Monocytes (%) (Auto) 7.1, Eosinophils (%) (Auto) 0.1, Basophils (%) (Auto) 0.4, Prothrombin Time 28.6H, Prothromb Time International Ratio 2.9H, Activated Partial Thromboplast Time 35H, Sodium Level 141, Potassium Level 5.7H, Chloride Level 106, Carbon Dioxide Level 17L, Anion Gap 18H, Blood Urea Nitrogen 58H, Creatinine 3.0H, Estimat Glomerular Filtration Rate , Glucose Level 86, Uric Acid 10.5H, Calcium Level 8.2L, Phosphorus Level 6.5H, Magnesium Level 2.1, Iron Level 44L, Total Iron Binding Capacity 212L, Percent Iron Saturation 21, Unsaturated Iron Binding 168, Ferritin 552H, Total Bilirubin 2.0H, Direct Bilirubin 1.1H, Gamma Glutamyl Transpeptidase 297H, Aspartate Amino Transf (AST/SGOT) 1129H, Alanine Aminotransferase (ALT/SGPT) 578H, Alkaline Phosphatase 205H, Ammonia 19, Troponin I 0.064H, C-Reactive Protein, Quantitative 3.5H, Pro-B-Type Natriuretic Peptide > 65998Z, Total Protein 7.4, Albumin 2.8L, Globulin 4.6, Albumin/Globulin Ratio 0.6L, Triglycerides Level 22L, Cholesterol Level 71, LDL Cholesterol 21, HDL Cholesterol 48, Cholesterol/HDL Ratio 1.5L, Lipase 303, Vitamin B12 Level > 2000H, Folate 19.9, Thyroid Stimulating Hormone (TSH) 2.115 , Cortisol AM Sample [Pending] 11/23/17 05:30: Urine Eosinophils None seen 11/23/17 10:41: Stool Occult Blood Positive Height (Feet): 5 Height (Inches): 7.00 Weight (Pounds): 176 General Appearance: mild distress EENT: PERRL/EOMI, scleral icterus Neck: non-tender Cardiovascular: normal peripheral pulses, regularly irregular Respiratory/Chest: chest wall non-tender, decreased breath sounds Abdomen: distended Pelvis: normal external exam Genitourinary/Rectal: normal genital exam Extremities: normal range of motion Edema: no edema noted Arm (L), no edema noted Arm (R) Edema: mild edema Neurologic: alert Lymphatic: normal anterior cervical (L), normal anterior cervical (R) Marshall Martinez M.D. Nov 23, 2017 13:16
[2017-11-23] MEDS: Thiamine HCl 100 MG in D5W 55 ML IVPB SCH (13:43)
--- NOTE | 2017-11-23 14:33 | General Progress Note ---
Assessment/Plan Status: stable Assessment/Plan encephalopathy due to [facility] [place] anxiety ativan prn Subjective Date patient seen: Nov 23, 2017 Neurologic/Psychiatric: Reports: anxiety, depressed, emotional problems Allergies: Coded Allergies: No Known Allergies (Unverified , 08/30/17) Objective Last 24 Hour Vital Signs Date Time Temp Pulse Resp B/P (MAP) Pulse Ox O2 Delivery O2 Flow Rate FiO2 11/23/17 12:54 114/71 11/23/17 12:00 96.1 80 18 114/71 (85) 100 96.1 11/23/17 12:00 79 11/23/17 11:17 80 11/23/17 09:50 106/84 11/23/17 09:50 80 106/84 11/23/17 09:00 Nasal Cannula 2.0 11/23/17 08:00 79 11/23/17 08:00 96.1 80 18 106/84 (91) 100 96.1 11/23/17 05:30 104/63 11/23/17 04:00 97.0 87 20 104/63 (77) 93 97.0 11/23/17 04:00 92 11/23/17 00:00 89 11/23/17 00:00 117/65 11/23/17 00:00 97.0 83 20 117/65 (82) 99 97.0 11/22/17 22:04 93 111/72 11/22/17 21:00 Nasal Cannula 2.0 11/22/17 20:00 96.8 85 20 99/47 (64) 99 96.8 11/22/17 20:00 85 11/22/17 17:12 104/72 11/22/17 16:00 87 11/22/17 16:00 96.9 84 20 104/72 (83) 100 96.9 Intake and Output 11/22/17 11/23/17 19:00 07:00 Intake Total 40 ml 480 ml Output Total 0 ml 200 ml Balance 40 ml 280 ml IV Total 40 ml 480 ml Output Urine Total 0 ml 200 ml # Bowel Movements 1 Laboratory Tests 11/22/17 17:30: Urine Color Brown, Urine Appearance Slightly cloudy, Urine pH 5, Urine Specific [place] 1.025, Urine Protein 3+H, Urine Glucose (UA) Negative, Urine Ketones 1+H , Urine Blood 5+H, Urine Nitrite Negative, Urine Bilirubin Negative, Urine Urobilinogen Normal, Urine Leukocyte Esterase 3+H, Urine RBC 20-30H, Urine WBC 10-15H, Urine Squamous Epithelial Cells None, Urine Amorphous Sediment ModerateH , Urine Bacteria ModerateH, Urine Random Sodium < 20L 11/23/17 04:14: White Blood Count 4.7L, Red Blood Count 3.09L, Hemoglobin 8.8L, Hematocrit 29.2L , Mean Corpuscular Volume 94, Mean Corpuscular Hemoglobin 28.3, Mean Corpuscular Hemoglobin Concent 30.1L, Red Cell Distribution Width 18.3H, Platelet Count 107L, Mean Platelet Volume 9.3, Neutrophils (%) (Auto) 78.3H, Lymphocytes (%) (Auto) 14.1L, Monocytes (%) (Auto) 7.1, Eosinophils (%) (Auto) 0.1, Basophils (%) (Auto) 0.4, Prothrombin Time 28.6H, Prothromb Time International Ratio 2.9H, Activated Partial Thromboplast Time 35H, Sodium Level 141, Potassium Level 5.7H, Chloride Level 106, Carbon Dioxide Level 17L, Anion Gap 18H, Blood Urea Nitrogen 58H, Creatinine 3.0H, Estimat Glomerular Filtration Rate , Glucose Level 86, Uric Acid 10.5H, Calcium Level 8.2L, Phosphorus Level 6.5H, Magnesium Level 2.1, Iron Level 44L, Total Iron Binding Capacity 212L, Percent Iron Saturation 21, Unsaturated Iron Binding 168, Ferritin 552H, Total Bilirubin 2.0H, Direct Bilirubin 1.1H, Gamma Glutamyl Transpeptidase 297H, Aspartate Amino Transf (AST/SGOT) 1129H, Alanine Aminotransferase (ALT/SGPT) 578H, Alkaline Phosphatase 205H, Ammonia 19, Troponin I 0.064H, C-Reactive Protein, Quantitative 3.5H, Pro-B-Type Natriuretic Peptide > 14515V, Total Protein 7.4, Albumin 2.8L, Globulin 4.6, Albumin/Globulin Ratio 0.6L, Triglycerides Level 22L, Cholesterol Level 71, LDL Cholesterol 21, HDL Cholesterol 48, Cholesterol/HDL Ratio 1.5L, Lipase 303, Vitamin B12 Level > 2000H, Folate 19.9, Thyroid Stimulating Hormone (TSH) 2.115 , Cortisol AM Sample [Pending] 11/23/17 05:30: Urine Eosinophils None seen 11/23/17 10:41: Stool Occult Blood Positive Height (Feet): 5 Height (Inches): 7.00 Weight (Pounds): 176 General Appearance: no apparent distress, alert, confused Ziyad Ledezma MD Nov 23, 2017 14:32
[2017-11-23] MEDS: Octreotide Acetate 500 MCG in Sodium Chloride 500ML 499 ML IV SCH (14:37)
[2017-11-23 16:00] VITALS: BP 103/67
[2017-11-23 20:00] VITALS: BP 110/64
[2017-11-23] MEDS: Carvedilol 6.25mg Tab ORAL SCH (21:00)
--- NOTE | 2017-11-23 22:34 | Cardiology Progress Note ---
Assessment/Plan Status: stable Assessment/Plan Assessment: 1) Cirrhosis (2) Anemia (3) Iron deficiency (4) Systolic and diastolic CHF, acute on chronic (5) Atrial fibrillation (6) Hypoglycemia Plan: Hold aldactone in setting of RAMONE and hyperkalemia Continue coreg for heart failure and afib - increase dose as tolerated Hydralazine/nitro for preload/afterload reduction No indication for cardioversion Recommend stopping midodrine as this will increase afterload in a failing heart and worsen cardiac output, his SVR is already at a maximum Paracentesis + Albumin to support BP Recommend EGD to evaluate for varicies when stable Steroids started per GI Mild diuresis for pulmonary vascular congestion. Defer ICD due to medication non compliance and prognosis <1 year Continue telemetry to evaluate for arrhythmias Patient did not qualify for life vest on previous admission Subjective Cardiovascular: Reports: no symptoms Respiratory: Reports: no symptoms Gastrointestinal/Abdominal: Reports: no symptoms Genitourinary: Reports: no symptoms Subjective BP low, midodrine started, coreg reduced dose NGT placed for feeds due to AMS, steroids started Objective Last 24 Hour Vital Signs Date Time Temp Pulse Resp B/P (MAP) Pulse Ox O2 Delivery O2 Flow Rate FiO2 11/23/17 21:00 Nasal Cannula 2.0 11/23/17 21:00 78 110/64 11/23/17 20:00 97.4 78 17 110/64 (79) 100 97.4 11/23/17 20:00 87 11/23/17 17:49 103/67 11/23/17 16:00 77 11/23/17 16:00 96.1 78 18 103/67 (79) 98 96.1 11/23/17 12:54 114/71 11/23/17 12:00 96.1 80 18 114/71 (85) 100 96.1 11/23/17 12:00 79 11/23/17 11:17 80 11/23/17 09:50 106/84 11/23/17 09:50 80 106/84 11/23/17 09:00 Nasal Cannula 2.0 11/23/17 08:00 79 11/23/17 08:00 96.1 80 18 106/84 (91) 100 96.1 11/23/17 05:30 104/63 11/23/17 04:00 97.0 87 20 104/63 (77) 93 97.0 11/23/17 04:00 92 11/23/17 00:00 89 11/23/17 00:00 117/65 11/23/17 00:00 97.0 83 20 117/65 (82) 99 97.0 General Appearance: no apparent distress, lethargic EENT: PERRL/EOMI, normal ENT inspection Neck: non-tender, normal alignment, supple, normal inspection, JVD Rhythm: NSR Cardiovascular: normal peripheral pulses, normal rate Respiratory/Chest: chest wall non-tender, lungs clear Abdomen: hepatomegaly, splenomegaly Extremities: normal range of motion, non-tender Neurologic: drug and alcohol counsellor II-XII grossly normal Intake and Output 11/22/17 11/23/17 19:00 07:00 Intake Total 40 ml 480 ml Output Total 0 ml 200 ml Balance 40 ml 280 ml IV Total 40 ml 480 ml Output Urine Total 0 ml 200 ml # Bowel Movements 1 Laboratory Tests Test 11/23/17 04:14 11/23/17 05:30 11/23/17 10:41 White Blood Count 4.7 K/UL (4.8-10.8) L Red Blood Count 3.09 M/UL (4.70-6.10) L Hemoglobin 8.8 G/DL (14.2-18.0) L Hematocrit 29.2 % (42.0-52.0) L Mean Corpuscular Volume 94 FL (80-99) Mean Corpuscular Hemoglobin 28.3 PG (27.0-31.0) Mean Corpuscular Hemoglobin Concent 30.1 G/DL (32.0-36.0) L Red Cell Distribution Width 18.3 % (11.6-14.8) H Platelet Count 107 K/UL (150-450) L Mean Platelet Volume 9.3 FL (6.5-10.1) Neutrophils (%) (Auto) 78.3 % (45.0-75.0) H Lymphocytes (%) (Auto) 14.1 % (20.0-45.0) L Monocytes (%) (Auto) 7.1 % (1.0-10.0) Eosinophils (%) (Auto) 0.1 % (0.0-3.0) Basophils (%) (Auto) 0.4 % (0.0-2.0) Prothrombin Time 28.6 SEC (9.30-11.50) H Prothromb Time International Ratio 2.9 (0.9-1.1) H Activated Partial Thromboplast Time 35 SEC (23-33) H Sodium Level 141 MMOL/L (136-145) Potassium Level 5.7 MMOL/L (3.5-5.1) H Chloride Level 106 MMOL/L (98-107) Carbon Dioxide Level 17 MMOL/L (21-32) L Anion Gap 18 mmol/L (5-15) H Blood Urea Nitrogen 58 mg/dL (7-18) H Creatinine 3.0 MG/DL (0.55-1.30) H Estimat Glomerular Filtration Rate mL/min (>60) Glucose Level 86 MG/DL (74-106) Uric Acid 10.5 MG/DL (2.6-7.2) H Calcium Level 8.2 MG/DL (8.5-10.1) L Phosphorus Level 6.5 MG/DL (2.5-4.9) H Magnesium Level 2.1 MG/DL (1.8-2.4) Iron Level 44 ug/dL (50-175) L Total Iron Binding Capacity 212 ug/dL (250-450) L Percent Iron Saturation 21 % (15-50) Unsaturated Iron Binding 168 ug/dL (112-346) Ferritin 552 NG/ML (8-388) H Total Bilirubin 2.0 MG/DL (0.2-1.0) H Direct Bilirubin 1.1 MG/DL (0.0-0.3) H Gamma Glutamyl Transpeptidase 297 U/L (5-85) H Aspartate Amino Transf (AST/SGOT) 1129 U/L (15-37) H Alanine Aminotransferase (ALT/SGPT) 578 U/L (12-78) H Alkaline Phosphatase 205 U/L (46-116) H Ammonia 19 umol/L (11-32) Troponin I 0.064 ng/mL (0.000-0.056) C-Reactive Protein, Quantitative 3.5 mg/dL (0.00-0.90) H Pro-B-Type Natriuretic Peptide > 49895 pg/mL (0-125) H Total Protein 7.4 G/DL (6.4-8.2) Albumin 2.8 G/DL (3.4-5.0) L Globulin 4.6 g/dL Albumin/Globulin Ratio 0.6 (1.0-2.7) L Triglycerides Level 22 MG/DL (30-150) L Cholesterol Level 71 MG/DL (< 200) LDL Cholesterol 21 mg/dL (<100) HDL Cholesterol 48 MG/DL (40-60) Cholesterol/HDL Ratio 1.5 (3.3-4.4) L Lipase 303 U/L (73-393) Vitamin B12 Level > 2000 PG/ML (193-986) H Folate 19.9 NG/ML (8.6-58.9) Thyroid Stimulating Hormone (TSH) 2.115 uiU/mL (0.358-3.740) Cortisol AM Sample Pending Urine Eosinophils None seen (NONE SEEN) Stool Occult Blood Positive (NEGATIVE) Microbiology Date/Time Source Procedure Growth Status 11/22/17 10:00 Body Fluid Abdominal Gram Stain - Final Resulted 11/22/17 10:00 Body Fluid Abdominal Body Fluid Culture - Preliminary NO GROWTH AFTER 24 HOURS Resulted 11/22/17 17:30 Urine,Clean Catch Urine Culture - Preliminary Streptococcus Species Resulted Kieran Cedillo MD Nov 23, 2017 22:34
[2017-11-24] VITALS: BP 116/67
[2017-11-24] MEDS: HydrALAZINE 10mg Tab NG SCH ×4 (00:51→18:32)
[2017-11-24] MEDS: Octreotide Acetate 500 MCG in Sodium Chloride 500ML 499 ML IV SCH ×3 (00:52→20:25)
[2017-11-24 04:00] VITALS: BP 119/74
--- NOTE | 2017-11-24 06:38 | General Progress Note ---
Assessment/Plan Assessment/Plan #. 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 Hepatitis and human immunodeficiency virus are negative. Counts in line with historical values over time --> Ultrasound of the abdomen from last admission showed cirrhosis/HSM --> Tumor markers reviewed and are negative from before. --> Likely leukopenia secondary to splenomegaly. Give neupogen if ANC <1000 ==> s/p paracentesis, 11/22: S/P paracentesis, yielding 5.9 liters of fluid. await cytology though in prior was negative --> Current WBC of 4.3, low 2. Anemia due to underlying chronic disease, appears to be stable. --> anemia w/u if hgb worsens --> Current Hgb of 8.7, stable. 3. Coagulopathy, likely related to underlying cirrhosis of the liver. --> VitK prn basis, given by GI 4. Hyperkalemia, given Kayexalate, currently improved. 5. Biventricular failure with severe pulmonary hypertension. The patient is seen by Cardiology. 6. Ascites, status post paracentesis. The time the note was entered does not necessarily correspond to the time the patient was seen. Subjective Constitutional: Denies: no symptoms, chills, diaphoresis, fever, malaise, weakness, other HEENT: Denies: no symptoms, eye pain, blurred vision, tearing, double vision, ear pain, ear discharge, nose pain, nose congestion, throat pain, throat swelling, mouth pain, mouth swelling, other Cardiovascular: Denies: no symptoms, chest pain, edema, irregular heart rate, lightheadedness, palpitations, syncope, other Respiratory: Denies: no symptoms, cough, orthopnea, shortness of breath, SOB with excertion, SOB at rest, sputum, stridor, wheezing, other Gastrointestinal/Abdominal: Denies: no symptoms, abdomen distended, abdominal pain, black stools, tarry stools, blood in stool, constipated, diarrhea, difficulty swallowing, nausea, poor appetite, poor fluid intake, rectal bleeding , vomiting, other Genitourinary: Denies: no symptoms, burning, discharge, frequency, flank pain, hematuria, incontinence, pain, urgency, other Neurologic/Psychiatric: Denies: no symptoms, anxiety, depressed, emotional problems, headache, numbness, paresthesia, pre-existing deficit, seizure, tingling, tremors, weakness, other Endocrine: Denies: no symptoms, excessive sweating, flushing, intolerance to cold, intolerance to heat, increased hunger, increased thirst, increased urine, unexplained weight gain, unexplained weight loss, other Hematologic/Lymphatic: Denies: no symptoms, anemia, easy bleeding, easy bruising, other Allergies: Coded Allergies: No Known Allergies (Unverified , 08/30/17) Subjective S/P paracentesis, yielding 5.9 liters of fluid, done yesterday, continues to be encephalopathic, pending cbc today Objective Last 24 Hour Vital Signs Date Time Temp Pulse Resp B/P (MAP) Pulse Ox O2 Delivery O2 Flow Rate FiO2 11/24/17 05:35 119/74 11/24/17 04:00 97.6 88 16 119/74 (89) 100 97.6 11/24/17 00:51 116/67 11/24/17 00:00 97.9 72 17 116/67 (83) 100 97.9 11/24/17 00:00 86 11/23/17 21:00 Nasal Cannula 2.0 11/23/17 21:00 78 110/64 11/23/17 20:00 97.4 78 17 110/64 (79) 100 97.4 11/23/17 20:00 87 11/23/17 17:49 103/67 11/23/17 16:00 77 11/23/17 16:00 96.1 78 18 103/67 (79) 98 96.1 11/23/17 12:54 114/71 11/23/17 12:00 96.1 80 18 114/71 (85) 100 96.1 11/23/17 12:00 79 11/23/17 11:17 80 11/23/17 09:50 106/84 11/23/17 09:50 80 106/84 11/23/17 09:00 Nasal Cannula 2.0 11/23/17 08:00 79 11/23/17 08:00 96.1 80 18 106/84 (91) 100 96.1 Intake and Output 11/23/17 11/24/17 19:00 07:00 Intake Total 170 ml 507 ml Output Total 450 ml Balance -280 ml 507 ml Intake Oral 120 ml IV Total 50 ml 507 ml Output Urine Total 450 ml # Bowel Movements 3 Laboratory Tests 11/23/17 10:41: Stool Occult Blood Positive Height (Feet): 5 Height (Inches): 7.00 Weight (Pounds): 176 General Appearance: lethargic EENT: TMs normal Neck: supple Cardiovascular: regular rhythm Respiratory/Chest: no respiratory distress Abdomen: no organomegaly Extremities: normal range of motion Edema: 1+ Leg (L), 1+ Leg (R) Edema: mild edema Neurologic: alert Christiano Hoffmann MD Nov 24, 2017 06:38
[2017-11-24 08:00] VITALS: BP 124/68
[2017-11-24] MEDS: cefTRIAXone 1 GM in D5W 55 ML IVPB SCH (08:27)
[2017-11-24] MEDS: Pantoprazole Inj IVP SCH ×2 (08:28→20:25)
[2017-11-24] MEDS: Carvedilol 6.25mg Tab ORAL SCH ×2 (08:29→20:25)
[2017-11-24] MEDS: Lactulose 20gm/30ml UDC NG SCH (08:29)
[2017-11-24] MEDS: Imdur 30mg tab ORAL SCH (08:29)
[2017-11-24] MEDS: Allopurinol 100mg Tab NG SCH (08:44)
[2017-11-24 09:34] LABS: HEMOGLOBIN 8.7 G/DL (14.2-18.0); MEAN CORPUSCULAR VOLUME 93 FL (80-99); PLATELET COUNT 91 K/UL (150-450); RED BLOOD COUNT 3.11 M/UL (4.70-6.10); RED CELL DISTRIBUTION WIDTH 18.9 % (11.6-14.8); WHITE BLOOD COUNT 3.9 K/UL (4.8-10.8)
[2017-11-24 10:09] LABS: ALANINE AMINOTRANSFERASE 396 U/L (12-78); ALBUMIN 2.2 G/DL (3.4-5.0); ALBUMIN/GLOBULIN RATIO 0.6 (1.0-2.7); ALKALINE PHOSPHATASE 156 U/L (46-116); ANION GAP 11 mmol/L (5-15); ASPARTATE AMINO TRANSFERASE 424 U/L (15-37); BILIRUBIN,TOTAL 0.9 MG/DL (0.2-1.0); BLOOD UREA NITROGEN 64 mg/dL (7-18); CALCIUM 7.6 MG/DL (8.5-10.1); CARBON DIOXIDE 20 MMOL/L (21-32); CHLORIDE 106 MMOL/L (98-107); CREATININE 2.9 MG/DL (0.55-1.30); GAMMA GLUTAMYL TRANSPEPTIDASE 232 U/L (5-85); PHOSPHORUS 6.2 MG/DL (2.5-4.9); POTASSIUM 4.2 MMOL/L (3.5-5.1); SODIUM 137 MMOL/L (136-145)
--- NOTE | 2017-11-24 10:57 | GI Progress Note ---
Assessment/Plan Problems: (1) Hepatic encephalopathy ICD Codes: K72.90 - Hepatic failure, unspecified without coma SNOMED: 48070820 (2) Cirrhosis ICD Codes: K74.60 - Unspecified cirrhosis of liver SNOMED: 83690987 Qualifiers: Qualified Codes: K70.31 - Alcoholic cirrhosis of liver with ascites (3) Anemia ICD Codes: D64.9 - Anemia, unspecified SNOMED: 934222029 Qualifiers: Qualified Codes: D64.9 - Anemia, unspecified Status: doing well, stable, progressing, tolerating diet Status Narrative Discussed with Dr. Choudhary. Assessment/Plan paracentesis pending today >> r/o SBP hepatitis panel on last admission negative OB stool negative liver shock Discriminant function = 84.8 points >> Poor Prognosis.Discriminant Function> 32 points indicates poor prognosis and patient may benefit from glucocorticoid therapy. HRS prednisone 40mg daily start midodrine 7.5mg, titrate daily by 2.5mg to goal of 15mg. >> at 10mg now octreotide gtt monitor H&H, prn transfusions bowel regime titrate lactulose, add xifaxan ppi albumin x3 days hold lasix given elevated creatinine levels tolerating diet fu labs, NH3 The patient was seen and examined at bedside and all new and available data was reviewed in the patients chart. I agree with the above findings, impression and plan. (Patient seen earlier today. Signature stamp does not reflect patient encounter time.). - Robin Choudhary MD Subjective Gastrointestinal/Abdominal: Reports: no symptoms Subjective abdominal pain improved denies any diarrhea Objective Last 24 Hour Vital Signs Date Time Temp Pulse Resp B/P (MAP) Pulse Ox O2 Delivery O2 Flow Rate FiO2 11/24/17 08:29 68 124/68 11/24/17 08:29 124/68 11/24/17 05:35 119/74 11/24/17 04:00 92 11/24/17 04:00 97.6 88 16 119/74 (89) 100 97.6 11/24/17 00:51 116/67 11/24/17 00:00 97.9 72 17 116/67 (83) 100 97.9 11/24/17 00:00 86 11/23/17 21:00 Nasal Cannula 2.0 11/23/17 21:00 78 110/64 11/23/17 20:00 97.4 78 17 110/64 (79) 100 97.4 11/23/17 20:00 87 11/23/17 17:49 103/67 11/23/17 16:00 77 11/23/17 16:00 96.1 78 18 103/67 (79) 98 96.1 11/23/17 12:54 114/71 11/23/17 12:00 96.1 80 18 114/71 (85) 100 96.1 11/23/17 12:00 79 11/23/17 11:17 80 Intake and Output 11/23/17 11/24/17 19:00 07:00 Intake Total 170 ml 1317 ml Output Total 450 ml 300 ml Balance -280 ml 1017 ml Intake Oral 120 ml 360 ml IV Total 50 ml 957 ml Output Urine Total 450 ml 300 ml # Voids 1 # Bowel Movements 3 Laboratory Tests Test 11/24/17 05:22 11/24/17 09:10 Urine Eosinophils Pending White Blood Count 3.9 K/UL (4.8-10.8) L Red Blood Count 3.11 M/UL (4.70-6.10) L Hemoglobin 8.7 G/DL (14.2-18.0) L Hematocrit 29.0 % (42.0-52.0) L Mean Corpuscular Volume 93 FL (80-99) Mean Corpuscular Hemoglobin 27.9 PG (27.0-31.0) Mean Corpuscular Hemoglobin Concent 29.9 G/DL (32.0-36.0) L Red Cell Distribution Width 18.9 % (11.6-14.8) H Platelet Count 91 K/UL (150-450) L Mean Platelet Volume 6.2 FL (6.5-10.1) L Neutrophils (%) (Auto) % (45.0-75.0) Lymphocytes (%) (Auto) % (20.0-45.0) Monocytes (%) (Auto) % (1.0-10.0) Eosinophils (%) (Auto) % (0.0-3.0) Basophils (%) (Auto) % (0.0-2.0) Differential Total Cells Counted 100 Neutrophils % (Manual) 93 % (45-75) H Lymphocytes % (Manual) 4 % (20-45) L Monocytes % (Manual) 3 % (1-10) Eosinophils % (Manual) 0 % (0-3) Basophils % (Manual) 0 % (0-2) Band Neutrophils 0 % (0-8) Nucleated Red Blood Cells 1 /100 WBC Platelet Estimate Decreased L Platelet Morphology Normal Polychromasia Occasional Hypochromasia 1+ Anisocytosis 2+ Eyad Cells 2+ Sodium Level 137 MMOL/L (136-145) Potassium Level 4.2 MMOL/L (3.5-5.1) Chloride Level 106 MMOL/L (98-107) Carbon Dioxide Level 20 MMOL/L (21-32) L Anion Gap 11 mmol/L (5-15) Blood Urea Nitrogen 64 mg/dL (7-18) H Creatinine 2.9 MG/DL (0.55-1.30) H Estimat Glomerular Filtration Rate mL/min (>60) Glucose Level 230 MG/DL (74-106) #H Uric Acid 10.0 MG/DL (2.6-7.2) H Calcium Level 7.6 MG/DL (8.5-10.1) L Phosphorus Level 6.2 MG/DL (2.5-4.9) H Magnesium Level 1.8 MG/DL (1.8-2.4) Total Bilirubin 0.9 MG/DL (0.2-1.0) Gamma Glutamyl Transpeptidase 232 U/L (5-85) H Aspartate Amino Transf (AST/SGOT) 424 U/L (15-37) H Alanine Aminotransferase (ALT/SGPT) 396 U/L (12-78) H Alkaline Phosphatase 156 U/L (46-116) H Troponin I 0.058 ng/mL (0.000-0.056) Pro-B-Type Natriuretic Peptide > 18354 pg/mL (0-125) H Total Protein 6.1 G/DL (6.4-8.2) L Albumin 2.2 G/DL (3.4-5.0) L Globulin 3.9 g/dL Albumin/Globulin Ratio 0.6 (1.0-2.7) L Height (Feet): 5 Height (Inches): 7.00 Weight (Pounds): 171 General Appearance: WD/WN, no apparent distress, alert, thin Cardiovascular: normal rate Respiratory/Chest: normal breath sounds, no respiratory distress Abdominal Exam: normal bowel sounds, non tender, soft, ascites Extremities: non-tender Chepe Wolf NP Nov 24, 2017 10:57
[2017-11-24 12:00] VITALS: BP 104/67
--- NOTE | 2017-11-24 12:05 | Nephrology Progress Note ---
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 (3) Anemia (4) 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 hypertension (5) Cirrhosis and encephalopathy (6) Atrial fibrillation (7) Hypoglycemia (8) elevated liver enzymes) Plan yates- NGT OUT DC D10 Kayexelate as needed midodrine- Digoxin- Nitrates- DC Lactulose adjust meds for bp Optimize cardiac condition gentle diuresis correct electrolyte imbalances on steroids now Subjective ROS Limited/Unobtainable: No Constitutional: Reports: other - feels stronger Objective Objective Last 24 Hour Vital Signs Date Time Temp Pulse Resp B/P (MAP) Pulse Ox O2 Delivery O2 Flow Rate FiO2 11/24/17 09:00 Nasal Cannula 2.0 11/24/17 08:29 68 124/68 11/24/17 08:29 124/68 11/24/17 08:00 87 11/24/17 08:00 97.3 68 20 124/68 (86) 96 97.3 11/24/17 05:35 119/74 11/24/17 04:00 92 11/24/17 04:00 97.6 88 16 119/74 (89) 100 97.6 11/24/17 00:51 116/67 11/24/17 00:00 97.9 72 17 116/67 (83) 100 97.9 11/24/17 00:00 86 11/23/17 21:00 Nasal Cannula 2.0 11/23/17 21:00 78 110/64 11/23/17 20:00 97.4 78 17 110/64 (79) 100 97.4 11/23/17 20:00 87 11/23/17 17:49 103/67 11/23/17 16:00 77 11/23/17 16:00 96.1 78 18 103/67 (79) 98 96.1 11/23/17 12:54 114/71 Intake and Output 11/23/17 11/24/17 19:00 07:00 Intake Total 170 ml 1317 ml Output Total 450 ml 300 ml Balance -280 ml 1017 ml Intake Oral 120 ml 360 ml IV Total 50 ml 957 ml Output Urine Total 450 ml 300 ml # Voids 1 # Bowel Movements 3 Laboratory Tests 11/24/17 05:22: Urine Eosinophils None seen 11/24/17 09:10: White Blood Count 3.9L, Red Blood Count 3.11L, Hemoglobin 8.7L, Hematocrit 29.0L , Mean Corpuscular Volume 93, Mean Corpuscular Hemoglobin 27.9, Mean Corpuscular Hemoglobin Concent 29.9L, Red Cell Distribution Width 18.9H, Platelet Count 91L, Mean Platelet Volume 6.2L, Neutrophils (%) (Auto) , Lymphocytes (%) (Auto) , Monocytes (%) (Auto) , Eosinophils (%) (Auto) , Basophils (%) (Auto) , Differential Total Cells Counted 100, Neutrophils % ( Manual) 93H, Lymphocytes % (Manual) 4L, Monocytes % (Manual) 3, Eosinophils % ( Manual) 0, Basophils % (Manual) 0, Band Neutrophils 0, Nucleated Red Blood Cells 1, Platelet Estimate DecreasedL, Platelet Morphology Normal, Polychromasia Occasional, Hypochromasia 1+, Anisocytosis 2+, Eayd Cells 2+, Sodium Level 137, Potassium Level 4.2, Chloride Level 106, Carbon Dioxide Level 20L, Anion Gap 11, Blood Urea Nitrogen 64H, Creatinine 2.9H, Estimat Glomerular Filtration Rate , Glucose Level 230#H, Uric Acid 10.0H, Calcium Level 7.6L, Phosphorus Level 6.2H, Magnesium Level 1.8, Total Bilirubin 0.9, Gamma Glutamyl Transpeptidase 232H, Aspartate Amino Transf (AST/SGOT) 424H, Alanine Aminotransferase (ALT/SGPT) 396H, Alkaline Phosphatase 156H, Troponin I 0.058H, Pro-B-Type Natriuretic Peptide > 52210G, Total Protein 6.1L, Albumin 2.2L, Globulin 3.9, Albumin/Globulin Ratio 0.6L Height (Feet): 5 Height (Inches): 7.00 Weight (Pounds): 171 General Appearance: no apparent distress, lethargic Respiratory/Chest: decreased breath sounds Abdomen: distended Noel Kim MD Nov 24, 2017 12:05
[2017-11-24] MEDS: Midodrine 10mg tab ORAL SCH ×2 (12:49→18:31)
--- NOTE | 2017-11-24 13:11 | General Progress Note ---
Assessment/Plan Status: stable, progressing Assessment/Plan encephalopathy due to [place] anxiety ativan prn Subjective Date patient seen: Nov 24, 2017 Neurologic/Psychiatric: Reports: anxiety, depressed, emotional problems Allergies: Coded Allergies: No Known Allergies (Unverified , 08/30/17) Objective Last 24 Hour Vital Signs Date Time Temp Pulse Resp B/P (MAP) Pulse Ox O2 Delivery O2 Flow Rate FiO2 11/24/17 12:49 124/68 11/24/17 12:48 68 11/24/17 09:00 Nasal Cannula 2.0 11/24/17 08:29 68 124/68 11/24/17 08:29 124/68 11/24/17 08:00 87 11/24/17 08:00 97.3 68 20 124/68 (86) 96 97.3 11/24/17 05:35 119/74 11/24/17 04:00 92 11/24/17 04:00 97.6 88 16 119/74 (89) 100 97.6 11/24/17 00:51 116/67 11/24/17 00:00 97.9 72 17 116/67 (83) 100 97.9 11/24/17 00:00 86 11/23/17 21:00 Nasal Cannula 2.0 11/23/17 21:00 78 110/64 11/23/17 20:00 97.4 78 17 110/64 (79) 100 97.4 11/23/17 20:00 87 11/23/17 17:49 103/67 11/23/17 16:00 77 11/23/17 16:00 96.1 78 18 103/67 (79) 98 96.1 Intake and Output 11/23/17 11/24/17 19:00 07:00 Intake Total 170 ml 1317 ml Output Total 450 ml 300 ml Balance -280 ml 1017 ml Intake Oral 120 ml 360 ml IV Total 50 ml 957 ml Output Urine Total 450 ml 300 ml # Voids 1 # Bowel Movements 3 Laboratory Tests 11/24/17 05:22: Urine Eosinophils None seen 11/24/17 09:10: White Blood Count 3.9L, Red Blood Count 3.11L, Hemoglobin 8.7L, Hematocrit 29.0L , Mean Corpuscular Volume 93, Mean Corpuscular Hemoglobin 27.9, Mean Corpuscular Hemoglobin Concent 29.9L, Red Cell Distribution Width 18.9H, Platelet Count 91L, Mean Platelet Volume 6.2L, Neutrophils (%) (Auto) , Lymphocytes (%) (Auto) , Monocytes (%) (Auto) , Eosinophils (%) (Auto) , Basophils (%) (Auto) , Differential Total Cells Counted 100, Neutrophils % ( Manual) 93H, Lymphocytes % (Manual) 4L, Monocytes % (Manual) 3, Eosinophils % ( Manual) 0, Basophils % (Manual) 0, Band Neutrophils 0, Nucleated Red Blood Cells 1, Platelet Estimate DecreasedL, Platelet Morphology Normal, Polychromasia Occasional, Hypochromasia 1+, Anisocytosis 2+, [place] Cells 2+, Sodium Level 137, Potassium Level 4.2, Chloride Level 106, Carbon Dioxide Level 20L, Anion Gap 11, Blood Urea Nitrogen 64H, Creatinine 2.9H, Estimat Glomerular Filtration Rate , Glucose Level 230#H, Uric Acid 10.0H, Calcium Level 7.6L, Phosphorus Level 6.2H, Magnesium Level 1.8, Total Bilirubin 0.9, Gamma Glutamyl Transpeptidase 232H, Aspartate Amino Transf (AST/SGOT) 424H, Alanine Aminotransferase (ALT/SGPT) 396H, Alkaline Phosphatase 156H, Troponin I 0.058H, C-Reactive Protein, Quantitative 2.7H, Pro-B-Type Natriuretic Peptide > 95263Z, Total Protein 6.1L, Albumin 2.2L, Globulin 3.9, Albumin/Globulin Ratio 0.6L Height (Feet): 5 Height (Inches): 7.00 Weight (Pounds): 171 General Appearance: no apparent distress, alert, confused Ziyad Ledezma MD Nov 24, 2017 13:11
[2017-11-24] MEDS: Aluminum Hydroxide Gel Susp 15ml ORAL SCH ×2 (14:41→18:32)
--- NOTE | 2017-11-24 15:11 | General Progress Note ---
Assessment/Plan Assessment/Plan 1) Acute encephalopathy 2) Acute hypoxemic respiratory failure 3) Hypoglycemia 4) Decompensated cirrhosis -check ABG -s/p large volume paracentesis 11/22 with 5.7 L -GI consulted for decompensated cirrhosis management- recs appreciated -lactulose, rifaximin, steroids, octreotride, -albumin x 3 days -O2 support as needed -Psychiatry consulted- recs appreciated 4) Acute on chronic renal failure Hyperkalemia -Renal consult- recs appreciated -Spirinolactone discontinued -Adkins inserted -gentle diureses -medical treatment of hyperkalemia 5) Acute on chronic systolic heart failure -Cardiology consulted- recs appreciated -continue beta dominguez, nitrate, hydralazine -avoid midodrine 6) Pancytopenia -Hematology consulted- recs appreciated -likely secondary to cirrhosis -continue to monitor DVT Prophylaxis: scd's Code status: full Hospital Classification declaration: Based on this initial evaluation, and depending on the patient's clinical course, I anticipate that this patient will require hospitalization for 2-3 days. Disposition: Once the patient is stable to leave the hospital, I anticipate the patient will likely be discharged to the following environment: Home I spent 45 minutes on this patient's case, and 25 minutes was dedicated to counseling and/or care coordination. Time of note may not reflect time of encounter. Subjective Date patient seen: Nov 24, 2017 Time patient seen: 15:30 ROS Limited/Unobtainable: No Constitutional: Reports: malaise, weakness HEENT: Reports: no symptoms Cardiovascular: Reports: no symptoms Respiratory: Reports: no symptoms Gastrointestinal/Abdominal: Reports: abdomen distended, nausea Genitourinary: Reports: no symptoms Neurologic/Psychiatric: Reports: no symptoms Endocrine: Reports: no symptoms Hematologic/Lymphatic: Reports: anemia Allergies: Coded Allergies: No Known Allergies (Unverified , 08/30/17) All Systems: reviewed and negative except above Subjective Events of overnight noted Chart reviewed Patient improved w/r/t abdominal pain No dyspnea Objective Last 24 Hour Vital Signs Date Time Temp Pulse Resp B/P (MAP) Pulse Ox O2 Delivery O2 Flow Rate FiO2 11/24/17 12:49 124/68 11/24/17 12:48 68 11/24/17 09:00 Nasal Cannula 2.0 11/24/17 08:29 68 124/68 11/24/17 08:29 124/68 8/29/18 08:00 87 11/24/17 08:00 97.3 68 20 124/68 (86) 96 97.3 11/24/17 05:35 119/74 11/24/17 04:00 92 11/24/17 04:00 97.6 88 16 119/74 (89) 100 97.6 11/24/17 00:51 116/67 11/24/17 00:00 97.9 72 17 116/67 (83) 100 97.9 11/24/17 00:00 86 11/23/17 21:00 Nasal Cannula 2.0 11/23/17 21:00 78 110/64 11/23/17 20:00 97.4 78 17 110/64 (79) 100 97.4 11/23/17 20:00 87 11/23/17 17:49 103/67 11/23/17 16:00 77 11/23/17 16:00 96.1 78 18 103/67 (79) 98 96.1 Intake and Output 11/23/17 11/24/17 19:00 07:00 Intake Total 170 ml 1317 ml Output Total 450 ml 300 ml Balance -280 ml 1017 ml Intake Oral 120 ml 360 ml IV Total 50 ml 957 ml Output Urine Total 450 ml 300 ml # Voids 1 # Bowel Movements 3 Laboratory Tests 11/24/17 05:22: Urine Eosinophils None seen 11/24/17 09:10: White Blood Count 3.9L, Red Blood Count 3.11L, Hemoglobin 8.7L, Hematocrit 29.0L , Mean Corpuscular Volume 93, Mean Corpuscular Hemoglobin 27.9, Mean Corpuscular Hemoglobin Concent 29.9L, Red Cell Distribution Width 18.9H, Platelet Count 91L, Mean Platelet Volume 6.2L, Neutrophils (%) (Auto) , Lymphocytes (%) (Auto) , Monocytes (%) (Auto) , Eosinophils (%) (Auto) , Basophils (%) (Auto) , Differential Total Cells Counted 100, Neutrophils % ( Manual) 93H, Lymphocytes % (Manual) 4L, Monocytes % (Manual) 3, Eosinophils % ( Manual) 0, Basophils % (Manual) 0, Band Neutrophils 0, Nucleated Red Blood Cells 1, Platelet Estimate DecreasedL, Platelet Morphology Normal, Polychromasia Occasional, Hypochromasia 1+, Anisocytosis 2+, [place] Cells 2+, Sodium Level 137, Potassium Level 4.2, Chloride Level 106, Carbon Dioxide Level 20L, Anion Gap 11, Blood Urea Nitrogen 64H, Creatinine 2.9H, Estimat Glomerular Filtration Rate , Glucose Level 230#H, Uric Acid 10.0H, Calcium Level 7.6L, Phosphorus Level 6.2H, Magnesium Level 1.8, Total Bilirubin 0.9, Gamma Glutamyl Transpeptidase 232H, Aspartate Amino Transf (AST/SGOT) 424H, Alanine Aminotransferase (ALT/SGPT) 396H, Alkaline Phosphatase 156H, Troponin I 0.058H, C-Reactive Protein, Quantitative 2.7H, Pro-B-Type Natriuretic Peptide > 66674X, Total Protein 6.1L, Albumin 2.2L, Globulin 3.9, Albumin/Globulin Ratio 0.6L Height (Feet): 5 Height (Inches): 7.00 Weight (Pounds): 171 General Appearance: no apparent distress, alert EENT: PERRL/EOMI, TMs normal, scleral icterus Neck: non-tender, supple Cardiovascular: normal peripheral pulses, normal rate Respiratory/Chest: chest wall non-tender, lungs clear Abdomen: normal bowel sounds, non tender Pelvis: normal external exam Genitourinary/Rectal: normal genital exam Extremities: normal range of motion Edema: no edema noted Arm (L), no edema noted Arm (R) Edema: mild edema Neurologic: [place] II-XII grossly normal Skin: normal pigmentation Lymphatic: normal anterior cervical (L), normal anterior cervical (R) Marshall Martinez MD Nov 24, 2017 15:11
[2017-11-24 16:00] VITALS: BP 114/73
[2017-11-24 20:00] VITALS: BP 111/56
--- NOTE | 2017-11-24 21:24 | Cardiology Progress Note ---
Assessment/Plan Status: stable Assessment/Plan Assessment: 1) Cirrhosis (2) Anemia (3) Iron deficiency (4) Systolic and diastolic CHF, acute on chronic (5) Atrial fibrillation (6) Hypoglycemia Plan: Hold aldactone in setting of RAMONE and hyperkalemia Continue coreg for heart failure and afib - increase dose as tolerated Hydralazine/nitro for preload/afterload reduction No indication for cardioversion Recommend stopping midodrine as this will increase afterload in a failing heart and worsen cardiac output, his SVR is already at a maximum Paracentesis + Albumin to support BP Recommend EGD to evaluate for varicies when stable Steroids started per GI Mild diuresis for pulmonary vascular congestion. Defer ICD due to medication non compliance and prognosis <1 year Continue telemetry to evaluate for arrhythmias Patient did not qualify for life vest on previous admission Subjective Cardiovascular: Reports: no symptoms Respiratory: Reports: no symptoms Gastrointestinal/Abdominal: Reports: no symptoms Genitourinary: Reports: no symptoms Subjective BP low, midodrine started, coreg reduced dose NGT placed for feeds due to AMS, steroids started Objective Last 24 Hour Vital Signs Date Time Temp Pulse Resp B/P (MAP) Pulse Ox O2 Delivery O2 Flow Rate FiO2 11/24/17 20:25 77 111/56 11/24/17 20:00 97.9 77 20 111/56 (74) 95 97.9 11/24/17 18:32 114/73 11/24/17 16:00 97.7 75 20 114/73 (87) 97 97.7 11/24/17 16:00 81 11/24/17 12:49 124/68 11/24/17 12:48 68 11/24/17 12:00 73 11/24/17 12:00 97.2 76 21 104/67 (79) 97 97.2 11/24/17 09:00 Nasal Cannula 2.0 11/24/17 08:29 68 124/68 11/24/17 08:29 124/68 11/24/17 08:00 87 11/24/17 08:00 97.3 68 20 124/68 (86) 96 97.3 11/24/17 05:35 119/74 11/24/17 04:00 92 11/24/17 04:00 97.6 88 16 119/74 (89) 100 97.6 11/24/17 00:51 116/67 11/24/17 00:00 97.9 72 17 116/67 (83) 100 97.9 11/24/17 00:00 86 General Appearance: no apparent distress, cachetic EENT: PERRL/EOMI, normal ENT inspection Neck: non-tender, normal alignment Rhythm: NSR Cardiovascular: normal peripheral pulses, normal rate Abdomen: normal bowel sounds, absent bowel sounds, distended, guarding, rebound , hepatomegaly, splenomegaly Extremities: normal range of motion, non-tender Neurologic: manager privacy II-XII grossly normal Intake and Output 11/23/17 11/24/17 19:00 07:00 Intake Total 170 ml 1317 ml Output Total 450 ml 300 ml Balance -280 ml 1017 ml Intake Oral 120 ml 360 ml IV Total 50 ml 957 ml Output Urine Total 450 ml 300 ml # Voids 1 # Bowel Movements 3 Laboratory Tests Test 11/24/17 05:22 11/24/17 09:10 Urine Eosinophils None seen (NONE SEEN) White Blood Count 3.9 K/UL (4.8-10.8) L Red Blood Count 3.11 M/UL (4.70-6.10) L Hemoglobin 8.7 G/DL (14.2-18.0) L Hematocrit 29.0 % (42.0-52.0) L Mean Corpuscular Volume 93 FL (80-99) Mean Corpuscular Hemoglobin 27.9 PG (27.0-31.0) Mean Corpuscular Hemoglobin Concent 29.9 G/DL (32.0-36.0) L Red Cell Distribution Width 18.9 % (11.6-14.8) H Platelet Count 91 K/UL (150-450) L Mean Platelet Volume 6.2 FL (6.5-10.1) L Neutrophils (%) (Auto) % (45.0-75.0) Lymphocytes (%) (Auto) % (20.0-45.0) Monocytes (%) (Auto) % (1.0-10.0) Eosinophils (%) (Auto) % (0.0-3.0) Basophils (%) (Auto) % (0.0-2.0) Differential Total Cells Counted 100 Neutrophils % (Manual) 93 % (45-75) H Lymphocytes % (Manual) 4 % (20-45) L Monocytes % (Manual) 3 % (1-10) Eosinophils % (Manual) 0 % (0-3) Basophils % (Manual) 0 % (0-2) Band Neutrophils 0 % (0-8) Nucleated Red Blood Cells 1 /100 WBC Platelet Estimate Decreased L Platelet Morphology Normal Polychromasia Occasional Hypochromasia 1+ Anisocytosis 2+ [place] Cells 2+ Sodium Level 137 MMOL/L (136-145) Potassium Level 4.2 MMOL/L (3.5-5.1) Chloride Level 106 MMOL/L (98-107) Carbon Dioxide Level 20 MMOL/L (21-32) L Anion Gap 11 mmol/L (5-15) Blood Urea Nitrogen 64 mg/dL (7-18) H Creatinine 2.9 MG/DL (0.55-1.30) H Estimat Glomerular Filtration Rate mL/min (>60) Glucose Level 230 MG/DL (74-106) #H Uric Acid 10.0 MG/DL (2.6-7.2) H Calcium Level 7.6 MG/DL (8.5-10.1) L Phosphorus Level 6.2 MG/DL (2.5-4.9) H Magnesium Level 1.8 MG/DL (1.8-2.4) Total Bilirubin 0.9 MG/DL (0.2-1.0) Gamma Glutamyl Transpeptidase 232 U/L (5-85) H Aspartate Amino Transf (AST/SGOT) 424 U/L (15-37) H Alanine Aminotransferase (ALT/SGPT) 396 U/L (12-78) H Alkaline Phosphatase 156 U/L (46-116) H Troponin I 0.058 ng/mL (0.000-0.056) C-Reactive Protein, Quantitative 2.7 mg/dL (0.00-0.90) H Pro-B-Type Natriuretic Peptide > 14205 pg/mL (0-125) H Total Protein 6.1 G/DL (6.4-8.2) L Albumin 2.2 G/DL (3.4-5.0) L Globulin 3.9 g/dL Albumin/Globulin Ratio 0.6 (1.0-2.7) L Microbiology Date/Time Source Procedure Growth Status 11/22/17 10:00 Body Fluid Abdominal Gram Stain - Final Resulted 11/22/17 10:00 Body Fluid Abdominal Body Fluid Culture - Preliminary NO GROWTH AFTER 48 HOURS Resulted 11/22/17 17:30 Urine,Clean Catch Urine Culture - Final Enterococcus Faecalis Complete Kieran Cedillo MD Nov 24, 2017 21:24
[2017-11-25] VITALS (7 sets, daily range): BP systolic 108–131; BP diastolic 64–81
[2017-11-25] MEDS: Aluminum Hydroxide Gel Susp 15ml ORAL SCH ×5 (00:35→23:47)
[2017-11-25] MEDS: HydrALAZINE 10mg Tab NG SCH ×5 (06:00→23:46)
[2017-11-25] MEDS: Octreotide Acetate 500 MCG in Sodium Chloride 500ML 499 ML IV SCH ×2 (06:19→16:35)
[2017-11-25 06:54] LABS: HEMATOCRIT 25.9 % (42.0-52.0); MEAN CORPUSCULAR VOLUME 91 FL (80-99); PLATELET COUNT 106 K/UL (150-450); RED BLOOD COUNT 2.83 M/UL (4.70-6.10); RED CELL DISTRIBUTION WIDTH 18.1 % (11.6-14.8); WHITE BLOOD COUNT 3.6 K/UL (4.8-10.8)
[2017-11-25 07:09] LABS: ALANINE AMINOTRANSFERASE 350 U/L (12-78); ALBUMIN 2.2 G/DL (3.4-5.0); ALBUMIN/GLOBULIN RATIO 0.6 (1.0-2.7); ALKALINE PHOSPHATASE 144 U/L (46-116); ANION GAP 12 mmol/L (5-15); ASPARTATE AMINO TRANSFERASE 298 U/L (15-37); BILIRUBIN,TOTAL 0.7 MG/DL (0.2-1.0); BLOOD UREA NITROGEN 66 mg/dL (7-18); CALCIUM 7.4 MG/DL (8.5-10.1); CARBON DIOXIDE 20 MMOL/L (21-32); CHLORIDE 106 MMOL/L (98-107); POTASSIUM 3.8 MMOL/L (3.5-5.1); SODIUM 138 MMOL/L (136-145)
[2017-11-25 07:26] LABS: AMMONIA 41 umol/L (11-32)
[2017-11-25 07:42] LABS: PHOSPHORUS 5.7 MG/DL (2.5-4.9)
--- NOTE | 2017-11-25 07:46 | General Progress Note ---
Assessment/Plan Assessment/Plan #. 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 Hepatitis and human immunodeficiency virus are negative. Counts in line with historical values over time, continues to persist --> Ultrasound of the abdomen from last admission showed cirrhosis/HSM --> Tumor markers reviewed and are negative from before. --> Likely leukopenia secondary to splenomegaly. Give neupogen if ANC <1000 --> s/p paracentesis, 11/22: S/P paracentesis, yielding 5.9L of fluid. await cytology though in prior was negative --> Current WBC of 4.3, low 2. Anemia due to underlying chronic disease, appears to be stable. --> anemia w/u if hgb worsens --> Current Hgb of 8.7, stable. 3. Coagulopathy, likely related to underlying cirrhosis of the liver. --> VitK prn basis, given by GI 4. Hyperkalemia, given Kayexalate, currently improved. 5. Biventricular failure with severe pulmonary hypertension. The patient is seen by Cardiology. 6. Ascites, status post paracentesis. The time the note was entered does not necessarily correspond to the time the patient was seen. Subjective Constitutional: Denies: no symptoms, chills, diaphoresis, fever, malaise, weakness, other HEENT: Denies: no symptoms, eye pain, blurred vision, tearing, double vision, ear pain, ear discharge, nose pain, nose congestion, throat pain, throat swelling, mouth pain, mouth swelling, other Cardiovascular: Denies: no symptoms, chest pain, edema, irregular heart rate, lightheadedness, palpitations, syncope, other Respiratory: Denies: no symptoms, cough, orthopnea, shortness of breath, SOB with excertion, SOB at rest, sputum, stridor, wheezing, other Gastrointestinal/Abdominal: Denies: no symptoms, abdomen distended, abdominal pain, black stools, tarry stools, blood in stool, constipated, diarrhea, difficulty swallowing, nausea, poor appetite, poor fluid intake, rectal bleeding , vomiting, other Genitourinary: Denies: no symptoms, burning, discharge, frequency, flank pain, hematuria, incontinence, pain, urgency, other Neurologic/Psychiatric: Denies: no symptoms, anxiety, depressed, emotional problems, headache, numbness, paresthesia, pre-existing deficit, seizure, tingling, tremors, weakness, other Endocrine: Denies: no symptoms, excessive sweating, flushing, intolerance to cold, intolerance to heat, increased hunger, increased thirst, increased urine, unexplained weight gain, unexplained weight loss, other Allergies: Coded Allergies: No Known Allergies (Unverified , 08/30/17) Subjective S/P paracentesis, yielding 5.9 liters of fluid, done yesterday, continues to be encephalopathic, pending cbc today Objective Last 24 Hour Vital Signs Date Time Temp Pulse Resp B/P (MAP) Pulse Ox O2 Delivery O2 Flow Rate FiO2 11/25/17 06:00 108/75 11/25/17 04:00 97.7 73 20 108/75 (86) 98 97.7 11/25/17 04:00 71 11/25/17 00:00 111/64 11/25/17 00:00 74 11/25/17 00:00 97.7 78 20 111/64 (80) 100 97.7 11/24/17 21:00 Nasal Cannula 2.0 Nasal Cannula 2.0 11/24/17 20:25 77 111/56 11/24/17 20:00 83 11/24/17 20:00 97.9 77 20 111/56 (74) 95 97.9 11/24/17 18:32 114/73 11/24/17 16:00 97.7 75 20 114/73 (87) 97 97.7 11/24/17 16:00 81 11/24/17 12:49 124/68 11/24/17 12:48 68 11/24/17 12:00 73 11/24/17 12:00 97.2 76 21 104/67 (79) 97 97.2 11/24/17 09:00 Nasal Cannula 2.0 11/24/17 08:29 68 124/68 11/24/17 08:29 124/68 11/24/17 08:00 87 11/24/17 08:00 97.3 68 20 124/68 (86) 96 97.3 Intake and Output 11/24/17 11/25/17 19:00 07:00 Intake Total 520 ml Output Total 375 ml 800 ml Balance 145 ml -800 ml Intake Oral 520 ml Output Urine Total 375 ml 800 ml # Bowel Movements 1 1 Laboratory Tests 11/24/17 09:10: White Blood Count 3.9L, Red Blood Count 3.11L, Hemoglobin 8.7L, Hematocrit 29.0L , Mean Corpuscular Volume 93, Mean Corpuscular Hemoglobin 27.9, Mean Corpuscular Hemoglobin Concent 29.9L, Red Cell Distribution Width 18.9H, Platelet Count 91L, Mean Platelet Volume 6.2L, Neutrophils (%) (Auto) , Lymphocytes (%) (Auto) , Monocytes (%) (Auto) , Eosinophils (%) (Auto) , Basophils (%) (Auto) , Differential Total Cells Counted 100, Neutrophils % ( Manual) 93H, Lymphocytes % (Manual) 4L, Monocytes % (Manual) 3, Eosinophils % ( Manual) 0, Basophils % (Manual) 0, Band Neutrophils 0, Nucleated Red Blood Cells 1, Platelet Estimate DecreasedL, Platelet Morphology Normal, Polychromasia Occasional, Hypochromasia 1+, Anisocytosis 2+, [place] Cells 2+, Sodium Level 137, Potassium Level 4.2, Chloride Level 106, Carbon Dioxide Level 20L, Anion Gap 11, Blood Urea Nitrogen 64H, Creatinine 2.9H, Estimat Glomerular Filtration Rate , Glucose Level 230#H, Uric Acid 10.0H, Calcium Level 7.6L, Phosphorus Level 6.2H, Magnesium Level 1.8, Total Bilirubin 0.9, Gamma Glutamyl Transpeptidase 232H, Aspartate Amino Transf (AST/SGOT) 424H, Alanine Aminotransferase (ALT/SGPT) 396H, Alkaline Phosphatase 156H, Troponin I 0.058H, C-Reactive Protein, Quantitative 2.7H, Pro-B-Type Natriuretic Peptide > 18417Y, Total Protein 6.1L, Albumin 2.2L, Globulin 3.9, Albumin/Globulin Ratio 0.6L 11/25/17 05:45: White Blood Count 3.6L, Red Blood Count 2.83L, Hemoglobin 8.0L, Hematocrit 25.9L , Mean Corpuscular Volume 91, Mean Corpuscular Hemoglobin 28.2, Mean Corpuscular Hemoglobin Concent 30.8L, Red Cell Distribution Width 18.1H, Platelet Count 106L, Mean Platelet Volume 8.1, Neutrophils (%) (Auto) , Lymphocytes (%) (Auto) , Monocytes (%) (Auto) , Eosinophils (%) (Auto) , Basophils (%) (Auto) , Neutrophils % (Manual) [Pending], Lymphocytes % (Manual) [Pending], Platelet Estimate [Pending], Platelet Morphology [Pending], Sodium Level 138, Potassium Level 3.8, Chloride Level 106, Carbon Dioxide Level 20L, Anion Gap 12, Blood Urea Nitrogen 66H, Creatinine 3.0H, Estimat Glomerular Filtration Rate , Glucose Level 123#H, Uric Acid [Pending], Calcium Level 7.4L, Phosphorus Level [Pending], Magnesium Level [Pending], Total Bilirubin 0.7, Aspartate Amino Transf (AST/SGOT) 298H, Alanine Aminotransferase (ALT/SGPT) 350H , Alkaline Phosphatase 144H, Troponin I 0.059H, Pro-B-Type Natriuretic Peptide [ Pending], Total Protein 6.1L, Albumin 2.2L, Globulin 3.9, Albumin/Globulin Ratio 0.6L, Ammonia 41H, Digoxin Level 0.6 Height (Feet): 5 Height (Inches): 7.00 Weight (Pounds): 171 General Appearance: no apparent distress EENT: normal ENT inspection Neck: supple Cardiovascular: regular rhythm Respiratory/Chest: lungs clear Abdomen: non tender Extremities: normal range of motion Edema: no edema noted Leg (L), no edema noted Leg (R) Edema: mild edema Neurologic: alert Christiano Hoffmann MD Nov 25, 2017 07:46
[2017-11-25] MEDS ORDERED: Lactulose 10gm/15ml UDC ORAL SCH (09:00)
[2017-11-25] MEDS: Pantoprazole Inj IVP SCH ×2 (09:41→21:33)
[2017-11-25] MEDS: Imdur 30mg tab ORAL SCH (09:43)
[2017-11-25] MEDS: Carvedilol 6.25mg Tab ORAL SCH (09:43)
[2017-11-25] MEDS: cefTRIAXone 1 GM in D5W 55 ML IVPB SCH (09:43)
--- NOTE | 2017-11-25 12:26 | General Progress Note ---
Assessment/Plan Status: stable, progressing Assessment/Plan [place] [facility] [place] Subjective Date patient seen: Nov 25, 2017 Neurologic/Psychiatric: Reports: anxiety, depressed Allergies: Coded Allergies: No Known Allergies (Unverified , 08/30/17) Objective Last 24 Hour Vital Signs Date Time Temp Pulse Resp B/P (MAP) Pulse Ox O2 Delivery O2 Flow Rate FiO2 11/25/17 09:43 74 115/69 11/25/17 09:43 115/69 11/25/17 09:00 Nasal Cannula 2.0 Nasal Cannula 2.0 11/25/17 08:00 97.2 74 16 115/69 (84) 97 97.2 11/25/17 06:00 108/75 11/25/17 04:00 97.7 73 20 108/75 (86) 98 97.7 11/25/17 04:00 71 11/25/17 00:00 111/64 11/25/17 00:00 74 11/25/17 00:00 97.7 78 20 111/64 (80) 100 97.7 11/24/17 21:00 Nasal Cannula 2.0 Nasal Cannula 2.0 11/24/17 20:25 77 111/56 11/24/17 20:00 83 11/24/17 20:00 97.9 77 20 111/56 (74) 95 97.9 11/24/17 18:32 114/73 11/24/17 16:00 97.7 75 20 114/73 (87) 97 97.7 11/24/17 16:00 81 11/24/17 12:49 124/68 11/24/17 12:48 68 Intake and Output 11/24/17 11/25/17 19:00 07:00 Intake Total 520 ml Output Total 375 ml 800 ml Balance 145 ml -800 ml Intake Oral 520 ml Output Urine Total 375 ml 800 ml # Bowel Movements 1 1 Laboratory Tests 11/25/17 05:45: White Blood Count 3.6L, Red Blood Count 2.83L, Hemoglobin 8.0L, Hematocrit 25.9L , Mean Corpuscular Volume 91, Mean Corpuscular Hemoglobin 28.2, Mean Corpuscular Hemoglobin Concent 30.8L, Red Cell Distribution Width 18.1H, Platelet Count 106L, Mean Platelet Volume 8.1, Neutrophils (%) (Auto) , Lymphocytes (%) (Auto) , Monocytes (%) (Auto) , Eosinophils (%) (Auto) , Basophils (%) (Auto) , Differential Total Cells Counted 100, Neutrophils % ( Manual) 90H, Lymphocytes % (Manual) 5L, Monocytes % (Manual) 5, Eosinophils % ( Manual) 0, Basophils % (Manual) 0, Band Neutrophils 0, Platelet Estimate DecreasedL, Platelet Morphology Normal, Hypochromasia 2+, Anisocytosis 2+, Sodium Level 138, Potassium Level 3.8, Chloride Level 106, Carbon Dioxide Level 20L, Anion Gap 12, Blood Urea Nitrogen 66H, Creatinine 3.0H, Estimat Glomerular Filtration Rate , Glucose Level 123#H, Uric Acid 9.8H, Calcium Level 7.4L, Phosphorus Level 5.7H, Magnesium Level 1.7L, Total Bilirubin 0.7, Aspartate Amino Transf (AST/SGOT) 298H, Alanine Aminotransferase (ALT/SGPT) 350H, Alkaline Phosphatase 144H, Ammonia 41H, Troponin I 0.059H, Pro-B-Type Natriuretic Peptide > 29878Y, Total Protein 6.1L, Albumin 2.2L, Globulin 3.9, Albumin/Globulin Ratio 0.6L, Digoxin Level 0.6 Height (Feet): 5 Height (Inches): 7.00 Weight (Pounds): 171 General Appearance: no apparent distress, alert, confused Ziyad Ledezma MD Nov 25, 2017 12:25
--- NOTE | 2017-11-25 12:35 | GI Progress Note ---
Assessment/Plan Problems: (1) Hepatic encephalopathy ICD Codes: K72.90 - Hepatic failure, unspecified without coma SNOMED: 42664159 (2) Cirrhosis ICD Codes: K74.60 - Unspecified cirrhosis of liver SNOMED: 01554894 Qualifiers: Qualified Codes: K70.31 - Alcoholic cirrhosis of liver with ascites (3) Anemia ICD Codes: D64.9 - Anemia, unspecified SNOMED: 520279362 Qualifiers: Qualified Codes: D64.9 - Anemia, unspecified (4) Hepatorenal syndrome ICD Codes: K76.7 - Hepatorenal syndrome SNOMED: 95911702 Status: stable, unchanged Status Narrative Discussed with Dr. Choudhary. Assessment/Plan s/p paracentesis >> r/o SBP hepatitis panel on last admission negative OB stool negative liver shock Discriminant function = 84.8 points >> Poor Prognosis.Discriminant Function> 32 points indicates poor prognosis and patient may benefit from glucocorticoid therapy. HRS prednisone 40mg daily start midodrine 7.5mg, titrate daily by 2.5mg to goal of 15mg. >> at 12.5mg now octreotide gtt monitor H&H, prn transfusions bowel regime titrate lactulose, add xifaxan ppi additional albumin x3 days hold lasix given elevated creatinine levels tolerating diet fu labs, NH3 The patient was seen and examined at bedside and all new and available data was reviewed in the patients chart. I agree with the above findings, impression and plan. (Patient seen earlier today. Signature stamp does not reflect patient encounter time.). - Robin Choudhary MD Subjective Subjective abdominal pain improved denies any diarrhea overall feels good Objective Last 24 Hour Vital Signs Date Time Temp Pulse Resp B/P (MAP) Pulse Ox O2 Delivery O2 Flow Rate FiO2 11/25/17 09:43 74 115/69 11/25/17 09:43 115/69 11/25/17 09:00 Nasal Cannula 2.0 Nasal Cannula 2.0 11/25/17 08:00 97.2 74 16 115/69 (84) 97 97.2 11/25/17 06:00 108/75 11/25/17 04:00 97.7 73 20 108/75 (86) 98 97.7 11/25/17 04:00 71 11/25/17 00:00 111/64 11/25/17 00:00 74 8/30/18 00:00 97.7 78 20 111/64 (80) 100 97.7 11/24/17 21:00 Nasal Cannula 2.0 Nasal Cannula 2.0 11/24/17 20:25 77 111/56 11/24/17 20:00 83 11/24/17 20:00 97.9 77 20 111/56 (74) 95 97.9 11/24/17 18:32 114/73 11/24/17 16:00 97.7 75 20 114/73 (87) 97 97.7 11/24/17 16:00 81 11/24/17 12:49 124/68 11/24/17 12:48 68 Intake and Output 11/24/17 11/25/17 19:00 07:00 Intake Total 520 ml Output Total 375 ml 800 ml Balance 145 ml -800 ml Intake Oral 520 ml Output Urine Total 375 ml 800 ml # Bowel Movements 1 1 Laboratory Tests Test 11/25/17 05:45 White Blood Count 3.6 K/UL (4.8-10.8) L Red Blood Count 2.83 M/UL (4.70-6.10) L Hemoglobin 8.0 G/DL (14.2-18.0) L Hematocrit 25.9 % (42.0-52.0) L Mean Corpuscular Volume 91 FL (80-99) Mean Corpuscular Hemoglobin 28.2 PG (27.0-31.0) Mean Corpuscular Hemoglobin Concent 30.8 G/DL (32.0-36.0) L Red Cell Distribution Width 18.1 % (11.6-14.8) H Platelet Count 106 K/UL (150-450) L Mean Platelet Volume 8.1 FL (6.5-10.1) Neutrophils (%) (Auto) % (45.0-75.0) Lymphocytes (%) (Auto) % (20.0-45.0) Monocytes (%) (Auto) % (1.0-10.0) Eosinophils (%) (Auto) % (0.0-3.0) Basophils (%) (Auto) % (0.0-2.0) Differential Total Cells Counted 100 Neutrophils % (Manual) 90 % (45-75) H Lymphocytes % (Manual) 5 % (20-45) L Monocytes % (Manual) 5 % (1-10) Eosinophils % (Manual) 0 % (0-3) Basophils % (Manual) 0 % (0-2) Band Neutrophils 0 % (0-8) Platelet Estimate Decreased L Platelet Morphology Normal Hypochromasia 2+ Anisocytosis 2+ Sodium Level 138 MMOL/L (136-145) Potassium Level 3.8 MMOL/L (3.5-5.1) Chloride Level 106 MMOL/L (98-107) Carbon Dioxide Level 20 MMOL/L (21-32) L Anion Gap 12 mmol/L (5-15) Blood Urea Nitrogen 66 mg/dL (7-18) H Creatinine 3.0 MG/DL (0.55-1.30) H Estimat Glomerular Filtration Rate mL/min (>60) Glucose Level 123 MG/DL (74-106) #H Uric Acid 9.8 MG/DL (2.6-7.2) H Calcium Level 7.4 MG/DL (8.5-10.1) L Phosphorus Level 5.7 MG/DL (2.5-4.9) H Magnesium Level 1.7 MG/DL (1.8-2.4) L Total Bilirubin 0.7 MG/DL (0.2-1.0) Aspartate Amino Transf (AST/SGOT) 298 U/L (15-37) H Alanine Aminotransferase (ALT/SGPT) 350 U/L (12-78) H Alkaline Phosphatase 144 U/L (46-116) H Ammonia 41 umol/L (11-32) H Troponin I 0.059 ng/mL (0.000-0.056) Pro-B-Type Natriuretic Peptide > 26819 pg/mL (0-125) H Total Protein 6.1 G/DL (6.4-8.2) L Albumin 2.2 G/DL (3.4-5.0) L Globulin 3.9 g/dL Albumin/Globulin Ratio 0.6 (1.0-2.7) L Digoxin Level 0.6 NG/ML (0.5-2.0) Height (Feet): 5 Height (Inches): 7.00 Weight (Pounds): 171 General Appearance: WD/WN, no apparent distress, alert Cardiovascular: normal rate Respiratory/Chest: normal breath sounds, no respiratory distress Abdominal Exam: normal bowel sounds, non tender, soft Extremities: non-tender Chepe Wolf NP Nov 25, 2017 12:35
[2017-11-25] MEDS ORDERED: Midodrine 10mg tab ORAL SCH (13:00)
[2017-11-25] MEDS ORDERED: Lactulose 20gm/30ml UDC ORAL SCH ×2 (14:00)
--- NOTE | 2017-11-25 16:38 | Nephrology Progress Note ---
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 (3) Anemia (4) 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 hypertension (5) Cirrhosis and encephalopathy (6) Atrial fibrillation (7) Hypoglycemia (8) elevated liver enzymes) Plan yates- NGT OUT DC D10 Kayexelate as needed midodrine- Digoxin- Nitrates- DC Lactulose adjust meds for bp Optimize cardiac condition gentle diuresis correct electrolyte imbalances on steroids now Subjective ROS Limited/Unobtainable: No Constitutional: Reports: malaise Objective Objective Last 24 Hour Vital Signs Date Time Temp Pulse Resp B/P (MAP) Pulse Ox O2 Delivery O2 Flow Rate FiO2 11/25/17 12:41 130/71 11/25/17 12:00 97.2 79 16 130/81 (97) 95 97.2 11/25/17 09:43 74 115/69 11/25/17 09:43 115/69 11/25/17 09:00 Nasal Cannula 2.0 Nasal Cannula 2.0 11/25/17 08:00 97.2 74 16 115/69 (84) 97 97.2 11/25/17 06:00 108/75 11/25/17 04:00 97.7 73 20 108/75 (86) 98 97.7 11/25/17 04:00 71 11/25/17 00:00 111/64 11/25/17 00:00 74 11/25/17 00:00 97.7 78 20 111/64 (80) 100 97.7 11/24/17 21:00 Nasal Cannula 2.0 Nasal Cannula 2.0 11/24/17 20:25 77 111/56 11/24/17 20:00 83 11/24/17 20:00 97.9 77 20 111/56 (74) 95 97.9 11/24/17 18:32 114/73 Intake and Output 11/24/17 11/25/17 19:00 07:00 Intake Total 520 ml Output Total 375 ml 800 ml Balance 145 ml -800 ml Intake Oral 520 ml Output Urine Total 375 ml 800 ml # Bowel Movements 1 1 Laboratory Tests 11/25/17 05:45: White Blood Count 3.6L, Red Blood Count 2.83L, Hemoglobin 8.0L, Hematocrit 25.9L , Mean Corpuscular Volume 91, Mean Corpuscular Hemoglobin 28.2, Mean Corpuscular Hemoglobin Concent 30.8L, Red Cell Distribution Width 18.1H, Platelet Count 106L, Mean Platelet Volume 8.1, Neutrophils (%) (Auto) , Lymphocytes (%) (Auto) , Monocytes (%) (Auto) , Eosinophils (%) (Auto) , Basophils (%) (Auto) , Differential Total Cells Counted 100, Neutrophils % ( Manual) 90H, Lymphocytes % (Manual) 5L, Monocytes % (Manual) 5, Eosinophils % ( Manual) 0, Basophils % (Manual) 0, Band Neutrophils 0, Platelet Estimate DecreasedL, Platelet Morphology Normal, Hypochromasia 2+, Anisocytosis 2+, Sodium Level 138, Potassium Level 3.8, Chloride Level 106, Carbon Dioxide Level 20L, Anion Gap 12, Blood Urea Nitrogen 66H, Creatinine 3.0H, Estimat Glomerular Filtration Rate , Glucose Level 123#H, Uric Acid 9.8H, Calcium Level 7.4L, Phosphorus Level 5.7H, Magnesium Level 1.7L, Total Bilirubin 0.7, Aspartate Amino Transf (AST/SGOT) 298H, Alanine Aminotransferase (ALT/SGPT) 350H, Alkaline Phosphatase 144H, Ammonia 41H, Troponin I 0.059H, Pro-B-Type Natriuretic Peptide > 96098R, Total Protein 6.1L, Albumin 2.2L, Globulin 3.9, Albumin/Globulin Ratio 0.6L, Digoxin Level 0.6 Height (Feet): 5 Height (Inches): 7.00 Weight (Pounds): 171 General Appearance: no apparent distress, lethargic Respiratory/Chest: decreased breath sounds Abdomen: distended Noel Kim MD Nov 25, 2017 16:38
[2017-11-25] MEDS: Lactulose 20gm/30ml UDC ORAL SCH (17:50)
--- NOTE | 2017-11-25 22:25 | General Progress Note ---
Assessment/Plan Status: stable Assessment/Plan 1) Acute encephalopathy 2) Acute hypoxemic respiratory failure 3) Hypoglycemia 4) Decompensated cirrhosis -s/p large volume paracentesis 11/22 with 5.7 L -GI consulted for decompensated cirrhosis management- recs appreciated -lactulose, rifaximin, steroids, octreotride started -s/p albumin x 3 days -O2 support as needed -concern for HRS- monitor creatinine closely -Psychiatry consulted- recs appreciated 4) Acute on chronic renal failure Hyperkalemia -Renal consult- recs appreciated -Spirinolactone discontinued -Adkins inserted -gentle diureses -medical treatment of hyperkalemia 5) Acute on chronic systolic heart failure -Cardiology consulted- recs appreciated -continue beta dominguez, nitrate, hydralazine -avoid midodrine- discontinued 6) Pancytopenia -Hematology consulted- recs appreciated -likely secondary to cirrhosis -continue to monitor DVT Prophylaxis: scd's Code status: full Hospital Classification declaration: Based on this initial evaluation, and depending on the patient's clinical course, I anticipate that this patient will require hospitalization for 2-3 days. Disposition: Once the patient is stable to leave the hospital, I anticipate the patient will likely be discharged to the following environment: Home I spent 45 minutes on this patient's case, and 25 minutes was dedicated to counseling and/or care coordination. Time of note may not reflect time of encounter. Subjective Date patient seen: Nov 25, 2017 Time patient seen: 14:44 ROS Limited/Unobtainable: No Constitutional: Reports: malaise, weakness HEENT: Reports: no symptoms Cardiovascular: Reports: no symptoms Respiratory: Reports: no symptoms Gastrointestinal/Abdominal: Reports: abdomen distended Genitourinary: Reports: no symptoms Neurologic/Psychiatric: Reports: no symptoms Endocrine: Reports: no symptoms Allergies: Coded Allergies: No Known Allergies (Unverified , 08/30/17) All Systems: reviewed and negative except above Subjective Events of overnight noted Chart reviewed by me Patient notes improvement in abdominal distension Denies chest pain or dypsnea Objective Last 24 Hour Vital Signs Date Time Temp Pulse Resp B/P (MAP) Pulse Ox O2 Delivery O2 Flow Rate FiO2 11/25/17 21:32 74 127/73 11/25/17 21:00 Nasal Cannula 2.0 Nasal Cannula 2.0 11/25/17 20:00 97.3 74 20 127/73 (91) 100 97.3 11/25/17 20:00 75 11/25/17 17:50 130/70 11/25/17 16:45 65 11/25/17 16:00 80 11/25/17 16:00 97.3 77 16 130/70 (90) 100 97.3 11/25/17 12:41 130/71 11/25/17 12:00 97.2 79 16 130/81 (97) 95 97.2 11/25/17 12:00 72 11/25/17 09:43 74 115/69 11/25/17 09:43 115/69 11/25/17 09:00 Nasal Cannula 2.0 Nasal Cannula 2.0 11/25/17 08:00 97.2 74 16 115/69 (84) 97 97.2 11/25/17 06:00 108/75 11/25/17 04:00 97.7 73 20 108/75 (86) 98 97.7 11/25/17 04:00 71 11/25/17 00:00 111/64 11/25/17 00:00 74 11/25/17 00:00 97.7 78 20 111/64 (80) 100 97.7 Intake and Output 11/24/17 11/25/17 19:00 07:00 Intake Total 520 ml Output Total 375 ml 800 ml Balance 145 ml -800 ml Intake Oral 520 ml Output Urine Total 375 ml 800 ml # Bowel Movements 1 1 Laboratory Tests 11/25/17 05:45: White Blood Count 3.6L, Red Blood Count 2.83L, Hemoglobin 8.0L, Hematocrit 25.9L , Mean Corpuscular Volume 91, Mean Corpuscular Hemoglobin 28.2, Mean Corpuscular Hemoglobin Concent 30.8L, Red Cell Distribution Width 18.1H, Platelet Count 106L, Mean Platelet Volume 8.1, Neutrophils (%) (Auto) , Lymphocytes (%) (Auto) , Monocytes (%) (Auto) , Eosinophils (%) (Auto) , Basophils (%) (Auto) , Differential Total Cells Counted 100, Neutrophils % ( Manual) 90H, Lymphocytes % (Manual) 5L, Monocytes % (Manual) 5, Eosinophils % ( Manual) 0, Basophils % (Manual) 0, Band Neutrophils 0, Platelet Estimate DecreasedL, Platelet Morphology Normal, Hypochromasia 2+, Anisocytosis 2+, Sodium Level 138, Potassium Level 3.8, Chloride Level 106, Carbon Dioxide Level 20L, Anion Gap 12, Blood Urea Nitrogen 66H, Creatinine 3.0H, Estimat Glomerular Filtration Rate , Glucose Level 123#H, Uric Acid 9.8H, Calcium Level 7.4L, Phosphorus Level 5.7H, Magnesium Level 1.7L, Total Bilirubin 0.7, Aspartate Amino Transf (AST/SGOT) 298H, Alanine Aminotransferase (ALT/SGPT) 350H, Alkaline Phosphatase 144H, Ammonia 41H, Troponin I 0.059H, Pro-B-Type Natriuretic Peptide > 40306U, Total Protein 6.1L, Albumin 2.2L, Globulin 3.9, Albumin/Globulin Ratio 0.6L, Digoxin Level 0.6 Height (Feet): 5 Height (Inches): 7.00 Weight (Pounds): 171 General Appearance: no apparent distress, alert, thin EENT: PERRL/EOMI, TMs normal Neck: non-tender, supple Cardiovascular: normal peripheral pulses, normal rate, regular rhythm Respiratory/Chest: chest wall non-tender, decreased breath sounds Abdomen: normal bowel sounds Pelvis: normal external exam Genitourinary/Rectal: normal genital exam Extremities: normal range of motion Edema: trace edema 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
--- NOTE | 2017-11-25 22:47 | Cardiology Progress Note ---
Assessment/Plan Status: stable Assessment/Plan Assessment: 1) Cirrhosis (2) Anemia (3) Iron deficiency (4) Systolic and diastolic CHF, acute on chronic (5) Atrial fibrillation (6) Hypoglycemia Plan: Hold aldactone in setting of RAMONE and hyperkalemia Continue coreg for heart failure and afib - increase dose as tolerated Hydralazine/nitro for preload/afterload reduction No indication for cardioversion Recommend stopping midodrine as this will increase afterload in a failing heart and worsen cardiac output, his SVR is already at a maximum Paracentesis + Albumin to support BP Recommend EGD to evaluate for varicies when stable Steroids started per GI Mild diuresis for pulmonary vascular congestion. Defer ICD due to medication non compliance and prognosis <1 year Continue telemetry to evaluate for arrhythmias Patient did not qualify for life vest on previous admission Subjective Cardiovascular: Reports: no symptoms Respiratory: Reports: no symptoms Gastrointestinal/Abdominal: Reports: no symptoms Genitourinary: Reports: no symptoms Subjective No aucte events, vitals stable, H/H dropping Objective Last 24 Hour Vital Signs Date Time Temp Pulse Resp B/P (MAP) Pulse Ox O2 Delivery O2 Flow Rate FiO2 11/25/17 21:32 74 127/73 11/25/17 21:00 Nasal Cannula 2.0 Nasal Cannula 2.0 11/25/17 20:00 97.3 74 20 127/73 (91) 100 97.3 11/25/17 20:00 75 11/25/17 17:50 130/70 11/25/17 16:45 65 11/25/17 16:00 80 11/25/17 16:00 97.3 77 16 130/70 (90) 100 97.3 11/25/17 12:41 130/71 11/25/17 12:00 97.2 79 16 130/81 (97) 95 97.2 11/25/17 12:00 72 11/25/17 09:43 74 115/69 11/25/17 09:43 115/69 11/25/17 09:00 Nasal Cannula 2.0 Nasal Cannula 2.0 11/25/17 08:00 97.2 74 16 115/69 (84) 97 97.2 11/25/17 06:00 108/75 11/25/17 04:00 97.7 73 20 108/75 (86) 98 97.7 11/25/17 04:00 71 11/25/17 00:00 111/64 11/25/17 00:00 74 11/25/17 00:00 97.7 78 20 111/64 (80) 100 97.7 General Appearance: no apparent distress, alert EENT: PERRL/EOMI, normal ENT inspection Neck: non-tender, normal alignment, supple, normal inspection Rhythm: NSR Cardiovascular: normal peripheral pulses, normal rate Respiratory/Chest: chest wall non-tender, lungs clear, normal breath sounds Abdomen: normal bowel sounds, non tender, hepatomegaly, splenomegaly Extremities: normal range of motion, non-tender 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 Intake and Output 11/24/17 11/25/17 19:00 07:00 Intake Total 520 ml Output Total 375 ml 800 ml Balance 145 ml -800 ml Intake Oral 520 ml Output Urine Total 375 ml 800 ml # Bowel Movements 1 1 Laboratory Tests Test 11/25/17 05:45 White Blood Count 3.6 K/UL (4.8-10.8) L Red Blood Count 2.83 M/UL (4.70-6.10) L Hemoglobin 8.0 G/DL (14.2-18.0) L Hematocrit 25.9 % (42.0-52.0) L Mean Corpuscular Volume 91 FL (80-99) Mean Corpuscular Hemoglobin 28.2 PG (27.0-31.0) Mean Corpuscular Hemoglobin Concent 30.8 G/DL (32.0-36.0) L Red Cell Distribution Width 18.1 % (11.6-14.8) H Platelet Count 106 K/UL (150-450) L Mean Platelet Volume 8.1 FL (6.5-10.1) Neutrophils (%) (Auto) % (45.0-75.0) Lymphocytes (%) (Auto) % (20.0-45.0) Monocytes (%) (Auto) % (1.0-10.0) Eosinophils (%) (Auto) % (0.0-3.0) Basophils (%) (Auto) % (0.0-2.0) Differential Total Cells Counted 100 Neutrophils % (Manual) 90 % (45-75) H Lymphocytes % (Manual) 5 % (20-45) L Monocytes % (Manual) 5 % (1-10) Eosinophils % (Manual) 0 % (0-3) Basophils % (Manual) 0 % (0-2) Band Neutrophils 0 % (0-8) Platelet Estimate Decreased L Platelet Morphology Normal Hypochromasia 2+ Anisocytosis 2+ Sodium Level 138 MMOL/L (136-145) Potassium Level 3.8 MMOL/L (3.5-5.1) Chloride Level 106 MMOL/L (98-107) Carbon Dioxide Level 20 MMOL/L (21-32) L Anion Gap 12 mmol/L (5-15) Blood Urea Nitrogen 66 mg/dL (7-18) H Creatinine 3.0 MG/DL (0.55-1.30) H Estimat Glomerular Filtration Rate mL/min (>60) Glucose Level 123 MG/DL (74-106) #H Uric Acid 9.8 MG/DL (2.6-7.2) H Calcium Level 7.4 MG/DL (8.5-10.1) L Phosphorus Level 5.7 MG/DL (2.5-4.9) H Magnesium Level 1.7 MG/DL (1.8-2.4) L Total Bilirubin 0.7 MG/DL (0.2-1.0) Aspartate Amino Transf (AST/SGOT) 298 U/L (15-37) H Alanine Aminotransferase (ALT/SGPT) 350 U/L (12-78) H Alkaline Phosphatase 144 U/L (46-116) H Ammonia 41 umol/L (11-32) H Troponin I 0.059 ng/mL (0.000-0.056) Pro-B-Type Natriuretic Peptide > 77302 pg/mL (0-125) H Total Protein 6.1 G/DL (6.4-8.2) L Albumin 2.2 G/DL (3.4-5.0) L Globulin 3.9 g/dL Albumin/Globulin Ratio 0.6 (1.0-2.7) L Digoxin Level 0.6 NG/ML (0.5-2.0) Kieran Cedillo MD Nov 25, 2017 22:47
[2017-11-26] MEDS: Octreotide Acetate 500 MCG in Sodium Chloride 500ML 499 ML IV SCH (01:39)
[2017-11-26 04:00] VITALS: BP 123/67
[2017-11-26 05:43] VITALS: BP 123/67
[2017-11-26] MEDS: HydrALAZINE 10mg Tab NG SCH (06:01)
[2017-11-26] MEDS: Aluminum Hydroxide Gel Susp 15ml ORAL SCH ×3 (06:02→17:51)
[2017-11-26 06:42] LABS: HEMATOCRIT 24.5 % (42.0-52.0); HEMOGLOBIN 7.9 G/DL (14.2-18.0); MEAN CORPUSCULAR VOLUME 91 FL (80-99); PLATELET COUNT 84 K/UL (150-450); RED BLOOD COUNT 2.68 M/UL (4.70-6.10); RED CELL DISTRIBUTION WIDTH 18.4 % (11.6-14.8); WHITE BLOOD COUNT 3.5 K/UL (4.8-10.8)
[2017-11-26 06:57] LABS: ALANINE AMINOTRANSFERASE 277 U/L (12-78); ALBUMIN 2.5 G/DL (3.4-5.0); ALBUMIN/GLOBULIN RATIO 0.6 (1.0-2.7); ALKALINE PHOSPHATASE 147 U/L (46-116); ANION GAP 11 mmol/L (5-15); ASPARTATE AMINO TRANSFERASE 182 U/L (15-37); BILIRUBIN,TOTAL 0.7 MG/DL (0.2-1.0); BLOOD UREA NITROGEN 67 mg/dL (7-18); CALCIUM 7.7 MG/DL (8.5-10.1); CARBON DIOXIDE 21 MMOL/L (21-32); CHLORIDE 105 MMOL/L (98-107); CREATININE 2.9 MG/DL (0.55-1.30); POTASSIUM 3.8 MMOL/L (3.5-5.1); SODIUM 137 MMOL/L (136-145)
[2017-11-26 08:00] VITALS: BP 116/65
--- NOTE | 2017-11-26 08:54 | Nephrology Progress Note ---
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 (3) Anemia (4) 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 hypertension (5) Cirrhosis and encephalopathy (6) Atrial fibrillation (7) Hypoglycemia (8) elevated liver enzymes) Plan on prednisone trial per SAMI LOYOLA OUT DC D10 Kayexelate as needed midodrine- Digoxin- Nitrates- Lactulose as needed adjust meds for bp Optimize cardiac condition gentle diuresis correct electrolyte imbalances Subjective ROS Limited/Unobtainable: No Constitutional: Reports: malaise Objective Objective Last 24 Hour Vital Signs Date Time Temp Pulse Resp B/P (MAP) Pulse Ox O2 Delivery O2 Flow Rate FiO2 11/26/17 06:01 123/67 11/26/17 05:43 97.0 75 20 123/67 (85) 95 97.0 11/26/17 04:00 69 11/26/17 04:00 97.0 75 20 123/67 (85) 99 97.0 11/26/17 00:00 73 11/25/17 23:46 131/79 11/25/17 23:36 97.5 78 20 131/79 (96) 99 97.5 11/25/17 21:32 74 127/73 11/25/17 21:00 Nasal Cannula 2.0 Nasal Cannula 2.0 11/25/17 20:00 97.3 74 20 127/73 (91) 100 97.3 11/25/17 20:00 75 11/25/17 17:50 130/70 11/25/17 16:45 65 11/25/17 16:00 80 11/25/17 16:00 97.3 77 16 130/70 (90) 100 97.3 11/25/17 12:41 130/71 11/25/17 12:00 97.2 79 16 130/81 (97) 95 97.2 11/25/17 12:00 72 11/25/17 09:43 74 115/69 11/25/17 09:43 115/69 11/25/17 09:00 Nasal Cannula 2.0 Nasal Cannula 2.0 Intake and Output 11/25/17 11/26/17 19:00 07:00 Intake Total 240 ml 555 ml Output Total 300 ml 350 ml Balance -60 ml 205 ml Intake Oral 240 ml IV Total 555 ml Output Urine Total 300 ml 350 ml # Voids 1 # Bowel Movements 1 1 Laboratory Tests 11/26/17 06:10: White Blood Count 3.5L, Red Blood Count 2.68L, Hemoglobin 7.9L, Hematocrit 24.5L , Mean Corpuscular Volume 91, Mean Corpuscular Hemoglobin 29.4, Mean Corpuscular Hemoglobin Concent 32.2, Red Cell Distribution Width 18.4H, Platelet Count 84L, Mean Platelet Volume 10.1, Neutrophils (%) (Auto) , Lymphocytes (%) (Auto) , Monocytes (%) (Auto) , Eosinophils (%) (Auto) , Basophils (%) (Auto) , Neutrophils % (Manual) [Pending], Lymphocytes % (Manual) [Pending], Platelet Estimate [Pending], Platelet Morphology [Pending], Sodium Level 137, Potassium Level 3.8, Chloride Level 105, Carbon Dioxide Level 21, Anion Gap 11, Blood Urea Nitrogen 67H, Creatinine 2.9H, Estimat Glomerular Filtration Rate , Glucose Level 131H, Uric Acid [Pending], Calcium Level 7.7L, Phosphorus Level [Pending], Magnesium Level [Pending], Total Bilirubin 0.7, Aspartate Amino Transf (AST/SGOT) 182H, Alanine Aminotransferase (ALT/SGPT) 277H , Alkaline Phosphatase 147H, Total Protein 6.5, Albumin 2.5L, Globulin 4.0, Albumin/Globulin Ratio 0.6L Height (Feet): 5 Height (Inches): 7.00 Weight (Pounds): 177 General Appearance: no apparent distress Cardiovascular: normal rate Respiratory/Chest: decreased breath sounds Abdomen: distended Noel Kim MD Nov 26, 2017 08:54
[2017-11-26 09:06] LABS: PHOSPHORUS 5.6 MG/DL (2.5-4.9)
--- NOTE | 2017-11-26 09:23 | General Progress Note ---
Assessment/Plan Assessment/Plan #. 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 Hepatitis and human immunodeficiency virus are negative. Counts in line with historical values over time, continues to persist --> Ultrasound of the abdomen from last admission showed cirrhosis/HSM --> Tumor markers reviewed and are negative from before. --> Likely leukopenia secondary to splenomegaly. Give neupogen if ANC <1000 --> s/p paracentesis, 11/22: S/P paracentesis, yielding 5.9L of fluid. await cytology though in prior was negative --> Current WBC of 4.3, low 2. Anemia due to underlying chronic disease, appears to be stable. --> anemia w/u if hgb worsens --> Current Hgb of 8.7, stable. 3. Coagulopathy, likely related to underlying cirrhosis of the liver. --> VitK prn basis, given by GI 4. Hyperkalemia, given Kayexalate, currently improved. 5. Biventricular failure with severe pulmonary hypertension. The patient is seen by Cardiology. 6. Ascites, status post paracentesis. The time the note was entered does not necessarily correspond to the time the patient was seen. Subjective Constitutional: Denies: no symptoms, chills, diaphoresis, fever, malaise, weakness, other HEENT: Denies: no symptoms, eye pain, blurred vision, tearing, double vision, ear pain, ear discharge, nose pain, nose congestion, throat pain, throat swelling, mouth pain, mouth swelling, other Cardiovascular: Denies: no symptoms, chest pain, edema, irregular heart rate, lightheadedness, palpitations, syncope, other Respiratory: Denies: no symptoms, cough, orthopnea, shortness of breath, SOB with excertion, SOB at rest, sputum, stridor, wheezing, other Genitourinary: Denies: no symptoms, burning, discharge, frequency, flank pain, hematuria, incontinence, pain, urgency, other Neurologic/Psychiatric: Denies: no symptoms, anxiety, depressed, emotional problems, headache, numbness, paresthesia, pre-existing deficit, seizure, tingling, tremors, weakness, other Endocrine: Denies: no symptoms, excessive sweating, flushing, intolerance to cold, intolerance to heat, increased hunger, increased thirst, increased urine, unexplained weight gain, unexplained weight loss, other Hematologic/Lymphatic: Denies: no symptoms, anemia, easy bleeding, easy bruising, other Allergies: Coded Allergies: No Known Allergies (Unverified , 08/30/17) Subjective S/P paracentesis, yielding 5.9 liters of fluid, done yesterday, continues to be encephalopathic, plt lower Objective Last 24 Hour Vital Signs Date Time Temp Pulse Resp B/P (MAP) Pulse Ox O2 Delivery O2 Flow Rate FiO2 11/26/17 08:00 98.4 86 20 116/65 (82) 96 98.4 11/26/17 08:00 93 11/26/17 06:01 123/67 11/26/17 05:43 97.0 75 20 123/67 (85) 95 97.0 11/26/17 04:00 69 11/26/17 04:00 97.0 75 20 123/67 (85) 99 97.0 11/26/17 00:00 73 11/25/17 23:46 131/79 11/25/17 23:36 97.5 78 20 131/79 (96) 99 97.5 11/25/17 21:32 74 127/73 11/25/17 21:00 Nasal Cannula 2.0 Nasal Cannula 2.0 11/25/17 20:00 97.3 74 20 127/73 (91) 100 97.3 11/25/17 20:00 75 11/25/17 17:50 130/70 11/25/17 16:45 65 11/25/17 16:00 80 11/25/17 16:00 97.3 77 16 130/70 (90) 100 97.3 11/25/17 12:41 130/71 11/25/17 12:00 97.2 79 16 130/81 (97) 95 97.2 11/25/17 12:00 72 11/25/17 09:43 74 115/69 11/25/17 09:43 115/69 Intake and Output 11/25/17 11/26/17 19:00 07:00 Intake Total 240 ml 555 ml Output Total 300 ml 350 ml Balance -60 ml 205 ml Intake Oral 240 ml IV Total 555 ml Output Urine Total 300 ml 350 ml # Voids 1 # Bowel Movements 1 1 Laboratory Tests 11/26/17 06:10: White Blood Count 3.5L, Red Blood Count 2.68L, Hemoglobin 7.9L, Hematocrit 24.5L , Mean Corpuscular Volume 91, Mean Corpuscular Hemoglobin 29.4, Mean Corpuscular Hemoglobin Concent 32.2, Red Cell Distribution Width 18.4H, Platelet Count 84L, Mean Platelet Volume 10.1, Neutrophils (%) (Auto) , Lymphocytes (%) (Auto) , Monocytes (%) (Auto) , Eosinophils (%) (Auto) , Basophils (%) (Auto) , Neutrophils % (Manual) [Pending], Lymphocytes % (Manual) [Pending], Platelet Estimate [Pending], Platelet Morphology [Pending], Sodium Level 137, Potassium Level 3.8, Chloride Level 105, Carbon Dioxide Level 21, Anion Gap 11, Blood Urea Nitrogen 67H, Creatinine 2.9H, Estimat Glomerular Filtration Rate , Glucose Level 131H, Uric Acid 9.2H, Calcium Level 7.7L, Phosphorus Level 5.6H, Magnesium Level 1.8, Total Bilirubin 0.7, Aspartate Amino Transf (AST/SGOT) 182H, Alanine Aminotransferase (ALT/SGPT) 277H, Alkaline Phosphatase 147H, Total Protein 6.5, Albumin 2.5L, Globulin 4.0, Albumin/Globulin Ratio 0.6L Height (Feet): 5 Height (Inches): 7.00 Weight (Pounds): 177 General Appearance: lethargic EENT: normal ENT inspection Neck: normal inspection Cardiovascular: regular rhythm Respiratory/Chest: normal breath sounds Abdomen: no mass Extremities: non-tender Edema: 1+ Arm (R), 1+ Leg (L), 1+ Leg (R), 1+ Pedal (L) Edema: mild edema Neurologic: alert Skin: warm/dry Christiano Hoffmann MD Nov 26, 2017 09:23
--- NOTE | 2017-11-26 09:59 | GI Progress Note ---
Assessment/Plan Problems: (1) Hepatic encephalopathy ICD Codes: K72.90 - Hepatic failure, unspecified without coma SNOMED: 88607986 (2) Cirrhosis ICD Codes: K74.60 - Unspecified cirrhosis of liver SNOMED: 63159693 Qualifiers: Qualified Codes: K70.31 - Alcoholic cirrhosis of liver with ascites (3) Anemia ICD Codes: D64.9 - Anemia, unspecified SNOMED: 915583258 Qualifiers: Qualified Codes: D64.9 - Anemia, unspecified (4) Hepatorenal syndrome ICD Codes: K76.7 - Hepatorenal syndrome SNOMED: 85874763 Status: stable Status Narrative Discussed with Dr. Choudhary. Assessment/Plan s/p paracentesis >> r/o SBP hepatitis panel on last admission negative OB stool negative liver shock Discriminant function = 84.8 points >> Poor Prognosis.Discriminant Function> 32 points indicates poor prognosis and patient may benefit from glucocorticoid therapy. HRS, okay for DC per GI standpoint patient most likely has chronic renal insufficiency and does not have HRS. stop prednisone 40mg daily dc midodrine 7.5mg, titrate daily by 2.5mg to goal of 15mg. >> at 12.5mg now dc octreotide gtt monitor H&H, prn transfusions bowel regime titrate lactulose, add Xifaxan ppi tolerating diet fu labs, NH3 The patient was seen and examined at bedside and all new and available data was reviewed in the patients chart. I agree with the above findings, impression and plan. (Patient seen earlier today. Signature stamp does not reflect patient encounter time.). - Robin Choudhary MD Subjective Subjective abdominal pain improved denies any diarrhea overall feels good Objective Last 24 Hour Vital Signs Date Time Temp Pulse Resp B/P (MAP) Pulse Ox O2 Delivery O2 Flow Rate FiO2 11/26/17 08:00 98.4 86 20 116/65 (82) 96 98.4 11/26/17 08:00 93 11/26/17 06:01 123/67 11/26/17 05:43 97.0 75 20 123/67 (85) 95 97.0 11/26/17 04:00 69 11/26/17 04:00 97.0 75 20 123/67 (85) 99 97.0 11/26/17 00:00 73 11/25/17 23:46 131/79 11/25/17 23:36 97.5 78 20 131/79 (96) 99 97.5 11/25/17 21:32 74 127/73 11/25/17 21:00 Nasal Cannula 2.0 Nasal Cannula 2.0 11/25/17 20:00 97.3 74 20 127/73 (91) 100 97.3 11/25/17 20:00 75 11/25/17 17:50 130/70 11/25/17 16:45 65 11/25/17 16:00 80 11/25/17 16:00 97.3 77 16 130/70 (90) 100 97.3 11/25/17 12:41 130/71 11/25/17 12:00 97.2 79 16 130/81 (97) 95 97.2 11/25/17 12:00 72 Intake and Output 11/25/17 11/26/17 19:00 07:00 Intake Total 240 ml 555 ml Output Total 300 ml 350 ml Balance -60 ml 205 ml Intake Oral 240 ml IV Total 555 ml Output Urine Total 300 ml 350 ml # Voids 1 # Bowel Movements 1 1 Laboratory Tests Test 11/26/17 06:10 White Blood Count 3.5 K/UL (4.8-10.8) L Red Blood Count 2.68 M/UL (4.70-6.10) L Hemoglobin 7.9 G/DL (14.2-18.0) L Hematocrit 24.5 % (42.0-52.0) L Mean Corpuscular Volume 91 FL (80-99) Mean Corpuscular Hemoglobin 29.4 PG (27.0-31.0) Mean Corpuscular Hemoglobin Concent 32.2 G/DL (32.0-36.0) Red Cell Distribution Width 18.4 % (11.6-14.8) H Platelet Count 84 K/UL (150-450) L Mean Platelet Volume 10.1 FL (6.5-10.1) Neutrophils (%) (Auto) % (45.0-75.0) Lymphocytes (%) (Auto) % (20.0-45.0) Monocytes (%) (Auto) % (1.0-10.0) Eosinophils (%) (Auto) % (0.0-3.0) Basophils (%) (Auto) % (0.0-2.0) Neutrophils % (Manual) Pending Lymphocytes % (Manual) Pending Platelet Estimate Pending Platelet Morphology Pending Sodium Level 137 MMOL/L (136-145) Potassium Level 3.8 MMOL/L (3.5-5.1) Chloride Level 105 MMOL/L (98-107) Carbon Dioxide Level 21 MMOL/L (21-32) Anion Gap 11 mmol/L (5-15) Blood Urea Nitrogen 67 mg/dL (7-18) H Creatinine 2.9 MG/DL (0.55-1.30) H Estimat Glomerular Filtration Rate mL/min (>60) Glucose Level 131 MG/DL (74-106) H Uric Acid 9.2 MG/DL (2.6-7.2) H Calcium Level 7.7 MG/DL (8.5-10.1) L Phosphorus Level 5.6 MG/DL (2.5-4.9) H Magnesium Level 1.8 MG/DL (1.8-2.4) Total Bilirubin 0.7 MG/DL (0.2-1.0) Aspartate Amino Transf (AST/SGOT) 182 U/L (15-37) H Alanine Aminotransferase (ALT/SGPT) 277 U/L (12-78) H Alkaline Phosphatase 147 U/L (46-116) H Total Protein 6.5 G/DL (6.4-8.2) Albumin 2.5 G/DL (3.4-5.0) L Globulin 4.0 g/dL Albumin/Globulin Ratio 0.6 (1.0-2.7) L Height (Feet): 5 Height (Inches): 7.00 Weight (Pounds): 177 De[facility] WolfBo[facility] 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
[2017-11-26] MEDS: Lactulose 20gm/30ml UDC ORAL SCH ×2 (10:02→17:51)
[2017-11-26] MEDS: Pantoprazole Inj IVP SCH ×2 (10:03→21:14)
[2017-11-26] MEDS: Imdur 30mg tab ORAL SCH (10:03)
[2017-11-26] MEDS: Heparin 5000 units/ml inj SUBQ SCH ×2 (10:09→21:17)
[2017-11-26] MEDS: cefTRIAXone 1 GM in D5W 55 ML IVPB SCH (10:13)
--- NOTE | 2017-11-26 11:38 | Cardiology Progress Note ---
Assessment/Plan Status: stable Assessment/Plan Assessment: 1) Cirrhosis (2) Anemia (3) Iron deficiency (4) Systolic and diastolic CHF, acute on chronic (5) Atrial fibrillation (6) Hypoglycemia Plan: Hold aldactone in setting of RAMONE and hyperkalemia Continue coreg for heart failure and afib - increase dose as tolerated Hydralazine/nitro for preload/afterload reduction No indication for cardioversion Recommend stopping midodrine as this will increase afterload in a failing heart and worsen cardiac output, his SVR is already at a maximum Paracentesis + Albumin to support BP Recommend EGD to evaluate for varicies when stable Steroids started per GI Mild diuresis for pulmonary vascular congestion. Defer ICD due to medication non compliance and prognosis <1 year Continue telemetry to evaluate for arrhythmias Patient did not qualify for life vest on previous admission Subjective Cardiovascular: Reports: no symptoms Respiratory: Reports: no symptoms Gastrointestinal/Abdominal: Reports: no symptoms Genitourinary: Reports: no symptoms Subjective No aucte events, vitals stable, H/H dropping Vitals stable, patient refused AM meds Objective Last 24 Hour Vital Signs Date Time Temp Pulse Resp B/P (MAP) Pulse Ox O2 Delivery O2 Flow Rate FiO2 11/26/17 10:03 116/65 11/26/17 10:02 93 116/65 11/26/17 09:00 Room Air Room Air 11/26/17 08:00 98.4 86 20 116/65 (82) 96 98.4 11/26/17 08:00 93 11/26/17 06:01 123/67 11/26/17 05:43 97.0 75 20 123/67 (85) 95 97.0 11/26/17 04:00 69 11/26/17 04:00 97.0 75 20 123/67 (85) 99 97.0 11/26/17 00:00 73 11/25/17 23:46 131/79 11/25/17 23:36 97.5 78 20 131/79 (96) 99 97.5 11/25/17 21:32 74 127/73 11/25/17 21:00 Nasal Cannula 2.0 Nasal Cannula 2.0 11/25/17 20:00 97.3 74 20 127/73 (91) 100 97.3 11/25/17 20:00 75 11/25/17 17:50 130/70 11/25/17 16:45 65 11/25/17 16:00 80 11/25/17 16:00 97.3 77 16 130/70 (90) 100 97.3 11/25/17 12:41 130/71 11/25/17 12:00 97.2 79 16 130/81 (97) 95 97.2 11/25/17 12:00 72 General Appearance: no apparent distress, alert EENT: PERRL/EOMI, normal ENT inspection Neck: non-tender, normal alignment Rhythm: NSR, Afib Cardiovascular: normal peripheral pulses, normal rate Respiratory/Chest: chest wall non-tender, lungs clear Abdomen: normal bowel sounds, distended, guarding, rebound Extremities: normal range of motion, non-tender Neurologic: pharmacist helper II-XII grossly normal, no motor/sensory deficits Intake and Output 11/25/17 11/26/17 19:00 07:00 Intake Total 240 ml 555 ml Output Total 300 ml 350 ml Balance -60 ml 205 ml Intake Oral 240 ml IV Total 555 ml Output Urine Total 300 ml 350 ml # Voids 1 # Bowel Movements 1 1 Laboratory Tests Test 11/26/17 06:10 White Blood Count 3.5 K/UL (4.8-10.8) L Red Blood Count 2.68 M/UL (4.70-6.10) L Hemoglobin 7.9 G/DL (14.2-18.0) L Hematocrit 24.5 % (42.0-52.0) L Mean Corpuscular Volume 91 FL (80-99) Mean Corpuscular Hemoglobin 29.4 PG (27.0-31.0) Mean Corpuscular Hemoglobin Concent 32.2 G/DL (32.0-36.0) Red Cell Distribution Width 18.4 % (11.6-14.8) H Platelet Count 84 K/UL (150-450) L Mean Platelet Volume 10.1 FL (6.5-10.1) Neutrophils (%) (Auto) % (45.0-75.0) Lymphocytes (%) (Auto) % (20.0-45.0) Monocytes (%) (Auto) % (1.0-10.0) Eosinophils (%) (Auto) % (0.0-3.0) Basophils (%) (Auto) % (0.0-2.0) Differential Total Cells Counted 100 Neutrophils % (Manual) 87 % (45-75) H Lymphocytes % (Manual) 7 % (20-45) L Monocytes % (Manual) 6 % (1-10) Eosinophils % (Manual) 0 % (0-3) Basophils % (Manual) 0 % (0-2) Band Neutrophils 0 % (0-8) Nucleated Red Blood Cells 2 /100 WBC Platelet Estimate Decreased L Platelet Morphology Normal Polychromasia Occasional Anisocytosis 2+ Ovalocytes 1+ Ray Cells 2+ Sodium Level 137 MMOL/L (136-145) Potassium Level 3.8 MMOL/L (3.5-5.1) Chloride Level 105 MMOL/L (98-107) Carbon Dioxide Level 21 MMOL/L (21-32) Anion Gap 11 mmol/L (5-15) Blood Urea Nitrogen 67 mg/dL (7-18) H Creatinine 2.9 MG/DL (0.55-1.30) H Estimat Glomerular Filtration Rate mL/min (>60) Glucose Level 131 MG/DL (74-106) H Uric Acid 9.2 MG/DL (2.6-7.2) H Calcium Level 7.7 MG/DL (8.5-10.1) L Phosphorus Level 5.6 MG/DL (2.5-4.9) H Magnesium Level 1.8 MG/DL (1.8-2.4) Total Bilirubin 0.7 MG/DL (0.2-1.0) Aspartate Amino Transf (AST/SGOT) 182 U/L (15-37) H Alanine Aminotransferase (ALT/SGPT) 277 U/L (12-78) H Alkaline Phosphatase 147 U/L (46-116) H Total Protein 6.5 G/DL (6.4-8.2) Albumin 2.5 G/DL (3.4-5.0) L Globulin 4.0 g/dL Albumin/Globulin Ratio 0.6 (1.0-2.7) L Kieran Cedillo MD Nov 26, 2017 11:38
[2017-11-26 12:00] VITALS: BP 118/72
[2017-11-26] MEDS: HydrALAZINE 25mg tab NG SCH ×2 (14:42→21:25)
[2017-11-26 16:00] VITALS: BP 121/74
--- NOTE | 2017-11-26 19:54 | General Progress Note ---
Assessment/Plan Status: progressing Assessment/Plan 1) Acute encephalopathy-resolved 2) Acute hypoxemic respiratory failure- resolved 3) Hypoglycemia- improved 4) Decompensated cirrhosis- improving -s/p large volume paracentesis 11/22 with 5.7 L -GI consulted for decompensated cirrhosis management- recs appreciated -lactulose, rifaximin, steroids, octreotride, -albumin x 3 days -O2 support as needed -Creatinine stable- plateaued at 3.0- Hepatorenal syndrome unlikely- d/c steroids, octreotride drip -Psychiatry consulted- recs appreciated 4) Acute on chronic renal failure Hyperkalemia -Renal consult- recs appreciated -Spirinolactone discontinued -Adkins inserted- will attempt to d/c this weekend as creatinine has plateaued at 3.0 -gentle diureses -medical treatment of hyperkalemia 5) Acute on chronic systolic heart failure -Cardiology consulted- recs appreciated -continue beta dominguez, nitrate, hydralazine -avoid midodrine 6) Pancytopenia -Hematology consulted- recs appreciated -likely secondary to cirrhosis -continue to monitor 7) UTI -Enterococcus faecalis- on ceftriaxone- f/u sensitivities DVT Prophylaxis: scd's Code status: full Hospital Classification declaration: Based on this initial evaluation, and depending on the patient's clinical course, I anticipate that this patient will require hospitalization for 2-3 days. Disposition: Once the patient is stable to leave the hospital, I anticipate the patient will likely be discharged to the following environment: Home I spent 45 minutes on this patient's case, and 25 minutes was dedicated to counseling and/or care coordination. Time of note may not reflect time of encounter. Subjective Date patient seen: Nov 26, 2017 Time patient seen: 14:44 Constitutional: Reports: no symptoms, malaise, weakness HEENT: Reports: no symptoms Cardiovascular: Reports: no symptoms Respiratory: Reports: no symptoms Gastrointestinal/Abdominal: Reports: abdomen distended Genitourinary: Reports: no symptoms Neurologic/Psychiatric: Reports: no symptoms Endocrine: Reports: no symptoms Hematologic/Lymphatic: Reports: no symptoms Allergies: Coded Allergies: No Known Allergies (Unverified , 08/30/17) All Systems: reviewed and negative except above Subjective Events of overnight noted Chart reviewed by me Patient refusing meds intermittently Denies chest pain or dyspnea currently Abdominal distension improved Objective Last 24 Hour Vital Signs Date Time Temp Pulse Resp B/P (MAP) Pulse Ox O2 Delivery O2 Flow Rate FiO2 11/26/17 16:00 97.9 89 20 121/74 (90) 98 97.9 11/26/17 16:00 82 11/26/17 14:42 118/72 11/26/17 12:00 90 11/26/17 12:00 97.7 88 20 118/72 (87) 98 97.7 11/26/17 10:03 116/65 11/26/17 10:02 93 116/65 11/26/17 09:00 Room Air Room Air 11/26/17 08:00 98.4 86 20 116/65 (82) 96 98.4 11/26/17 08:00 93 11/26/17 06:01 123/67 11/26/17 05:43 97.0 75 20 123/67 (85) 95 97.0 11/26/17 04:00 69 11/26/17 04:00 97.0 75 20 123/67 (85) 99 97.0 11/26/17 00:00 73 11/25/17 23:46 131/79 11/25/17 23:36 97.5 78 20 131/79 (96) 99 97.5 11/25/17 21:32 74 127/73 11/25/17 21:00 Nasal Cannula 2.0 Nasal Cannula 2.0 11/25/17 20:00 97.3 74 20 127/73 (91) 100 97.3 11/25/17 20:00 75 Intake and Output 11/25/17 11/26/17 19:00 07:00 Intake Total 240 ml 555 ml Output Total 300 ml 350 ml Balance -60 ml 205 ml Intake Oral 240 ml IV Total 555 ml Output Urine Total 300 ml 350 ml # Voids 1 # Bowel Movements 1 1 Laboratory Tests 11/26/17 06:10: White Blood Count 3.5L, Red Blood Count 2.68L, Hemoglobin 7.9L, Hematocrit 24.5L , Mean Corpuscular Volume 91, Mean Corpuscular Hemoglobin 29.4, Mean Corpuscular Hemoglobin Concent 32.2, Red Cell Distribution Width 18.4H, Platelet Count 84L, Mean Platelet Volume 10.1, Neutrophils (%) (Auto) , Lymphocytes (%) (Auto) , Monocytes (%) (Auto) , Eosinophils (%) (Auto) , Basophils (%) (Auto) , Differential Total Cells Counted 100, Neutrophils % ( Manual) 87H, Lymphocytes % (Manual) 7L, Monocytes % (Manual) 6, Eosinophils % ( Manual) 0, Basophils % (Manual) 0, Band Neutrophils 0, Nucleated Red Blood Cells 2, Platelet Estimate DecreasedL, Platelet Morphology Normal, Polychromasia Occasional, Anisocytosis 2+, Ovalocytes 1+, [place] Cells 2+, Sodium Level 137, Potassium Level 3.8, Chloride Level 105, Carbon Dioxide Level 21, Anion Gap 11, Blood Urea Nitrogen 67H, Creatinine 2.9H, Estimat Glomerular Filtration Rate , Glucose Level 131H, Uric Acid 9.2H, Calcium Level 7.7L, Phosphorus Level 5.6H, Magnesium Level 1.8, Total Bilirubin 0.7, Aspartate Amino Transf (AST/SGOT) 182H, Alanine Aminotransferase (ALT/SGPT) 277H, Alkaline Phosphatase 147H, Total Protein 6.5, Albumin 2.5L, Globulin 4.0, Albumin/Globulin Ratio 0.6L Height (Feet): 5 Height (Inches): 7.00 Weight (Pounds): 177 General Appearance: no apparent distress, alert, thin EENT: PERRL/EOMI, normal ENT inspection, pharynx normal, pale conjunctivae Neck: non-tender, supple, normal inspection Cardiovascular: normal peripheral pulses, regular rhythm, no gallop/murmur Respiratory/Chest: chest wall non-tender, decreased breath sounds Pelvis: normal external exam Extremities: normal range of motion, non-tender Edema: no edema noted Arm (L), no edema noted Arm (R) Edema: trace edema Neurologic: beam dyer II-XII grossly normal, no motor/sensory deficits, normal mood/ affect Skin: normal pigmentation, warm/dry Lymphatic: normal anterior cervical (L), normal anterior cervical (R) Marshall Martinez MD Nov 26, 2017 19:54
[2017-11-26 20:00] VITALS: BP 120/69
[2017-11-26] MEDS ORDERED: Epogen (for non ESRD use) SUBQ SCH (21:00)
[2017-11-27] VITALS: BP 129/75
[2017-11-27] MEDS: Aluminum Hydroxide Gel Susp 15ml ORAL SCH ×4 (00:02→17:07)
[2017-11-27 04:00] VITALS: BP 132/64
[2017-11-27] MEDS: HydrALAZINE 25mg tab NG SCH ×3 (06:29→21:32)
[2017-11-27 08:00] VITALS: BP 144/88
[2017-11-27] MEDS: Pantoprazole Inj IVP SCH ×2 (08:47→21:32)
[2017-11-27] MEDS: Lactulose 20gm/30ml UDC ORAL SCH (08:48)
[2017-11-27] MEDS: Imdur 30mg tab ORAL SCH (08:48)
[2017-11-27] MEDS: Heparin 5000 units/ml inj SUBQ SCH (08:49)
--- NOTE | 2017-11-27 09:31 | General Progress Note ---
Assessment/Plan Status: stable Assessment/Plan 1) Acute encephalopathy-resolved 2) Acute hypoxemic respiratory failure- resolved 3) Hypoglycemia- improved 4) Decompensated cirrhosis- improving -s/p large volume paracentesis 11/22 with 5.7 L -GI consulted for decompensated cirrhosis management- recs appreciated -lactulose, rifaximin, steroids, octreotride, -albumin x 3 days -O2 support as needed -Creatinine stable- plateaued at 3.0- Hepatorenal syndrome unlikely- d/c steroids, octreotride drip -Psychiatry consulted- recs appreciated 4) Acute on chronic renal failure Hyperkalemia -Renal consult- recs appreciated -Spirinolactone discontinued -Adkins inserted- will attempt to d/c this weekend as creatinine has plateaued at 3.0 -gentle diureses -medical treatment of hyperkalemia 5) Acute on chronic systolic heart failure -Cardiology consulted- recs appreciated -continue beta dominguez, nitrate, hydralazine -avoid midodrine 6) Pancytopenia -Hematology consulted- recs appreciated -likely secondary to cirrhosis -continue to monitor 7) UTI -Enterococcus faecalis- s/p ceftriaxone, cont ampicillin based on sensitivities (11/26-) 8) Acute on chronic anemia, +FOBT, concern for occult GI bleed -GI consulted, possible plan for EGD on DVT Prophylaxis: scd's Code status: full Hospital Classification declaration: Based on this initial evaluation, and depending on the patient's clinical course, I anticipate that this patient will require hospitalization for 1-2 days. Disposition: Once the patient is stable to leave the hospital, I anticipate the patient will likely be discharged to the following environment: Home w/ HH + CG vs SNF I spent 42 minutes on this patient's case, and 25 minutes was dedicated to counseling and/or care coordination. Time of note may not reflect time of encounter. Subjective Date patient seen: Nov 27, 2017 Time patient seen: 09:31 ROS Limited/Unobtainable: No Constitutional: Reports: no symptoms HEENT: Reports: no symptoms Cardiovascular: Reports: no symptoms Respiratory: Reports: no symptoms Gastrointestinal/Abdominal: Reports: no symptoms Genitourinary: Reports: no symptoms Neurologic/Psychiatric: Reports: no symptoms Endocrine: Reports: no symptoms Hematologic/Lymphatic: Reports: no symptoms Allergies: Coded Allergies: No Known Allergies (Unverified , 08/30/17) All Systems: reviewed and negative except above Subjective No acute o/n events Hgb downtrending, FOBT+ Pt cont to intermittently refuse meds. Denies chest pain, SOB Discussed discharge w/ patient who states he lives w/ his sister but he is unsure if she can full help him. He is amenable to SNF/rehab Objective Last 24 Hour Vital Signs Date Time Temp Pulse Resp B/P (MAP) Pulse Ox O2 Delivery O2 Flow Rate FiO2 11/27/17 08:48 144/88 11/27/17 08:48 108 144/88 11/27/17 08:00 97.3 108 19 144/88 (106) 96 97.3 11/27/17 06:29 132/64 11/27/17 04:00 81 11/27/17 04:00 98.2 68 19 132/64 (86) 95 98.2 11/27/17 00:00 97.7 79 20 129/75 (93) 95 97.7 11/27/17 00:00 81 11/26/17 21:25 120/69 11/26/17 21:14 81 120/69 11/26/17 21:00 Room Air Room Air 11/26/17 20:00 78 11/26/17 20:00 96.9 81 20 120/69 (86) 95 96.9 11/26/17 16:00 97.9 89 20 121/74 (90) 98 97.9 11/26/17 16:00 82 11/26/17 14:42 118/72 11/26/17 12:00 90 11/26/17 12:00 97.7 88 20 118/72 (87) 98 97.7 11/26/17 10:03 116/65 11/26/17 10:02 93 116/65 Intake and Output 11/26/17 11/27/17 19:00 07:00 Intake Total 600 ml 200 ml Output Total 750 ml Balance 600 ml -550 ml Intake Oral 600 ml 200 ml Output Urine Total 750 ml Height (Feet): 5 Height (Inches): 7.00 Weight (Pounds): 180 Objective General: alert, cooperative, no distress, appears stated age Head: normocephalic, without obvious abnormality, atraumatic Eyes: conjunctivae/corneas clear. PERRL, EOM's intact Throat: lips, mucosa, and tongue normal. MMM Neck: supple, symmetrical, trachea midline, and no JVD Lungs: clear to auscultation bilaterally Heart: regular rate and rhythm, S1, S2 normal, no murmur, click, rub or gallop Abdomen: soft, non-tender, non-distended, bowel sounds normal; Extremities: extremities normal, atraumatic, no cyanosis or edema Pulses: 2+ and symmetric Skin: skin color, texture, turgor normal; no rashes or lesions Neurologic: grossly normal, no focal deficits Jessica Banerjee M.D. Nov 27, 2017 09:31
--- NOTE | 2017-11-27 09:35 | Nephrology Progress Note ---
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 (3) Anemia (4) 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 hypertension (5) Cirrhosis and encephalopathy (6) Atrial fibrillation (7) Hypoglycemia (8) elevated liver enzymes) Plan on prednisone trial per SAMI LOYOLA OUT DC D10 Kayexelate as needed midodrine- Digoxin- Nitrates- Lactulose as needed adjust meds for bp Optimize cardiac condition gentle diuresis correct electrolyte imbalances Subjective ROS Limited/Unobtainable: No Constitutional: Reports: weakness Objective Objective Last 24 Hour Vital Signs Date Time Temp Pulse Resp B/P (MAP) Pulse Ox O2 Delivery O2 Flow Rate FiO2 11/27/17 08:48 144/88 11/27/17 08:48 108 144/88 11/27/17 08:00 97.3 108 19 144/88 (106) 96 97.3 11/27/17 06:29 132/64 11/27/17 04:00 81 11/27/17 04:00 98.2 68 19 132/64 (86) 95 98.2 11/27/17 00:00 97.7 79 20 129/75 (93) 95 97.7 11/27/17 00:00 81 11/26/17 21:25 120/69 11/26/17 21:14 81 120/69 11/26/17 21:00 Room Air Room Air 11/26/17 20:00 78 11/26/17 20:00 96.9 81 20 120/69 (86) 95 96.9 11/26/17 16:00 97.9 89 20 121/74 (90) 98 97.9 11/26/17 16:00 82 11/26/17 14:42 118/72 11/26/17 12:00 90 11/26/17 12:00 97.7 88 20 118/72 (87) 98 97.7 11/26/17 10:03 116/65 11/26/17 10:02 93 116/65 Intake and Output 11/26/17 11/27/17 19:00 07:00 Intake Total 600 ml 200 ml Output Total 750 ml Balance 600 ml -550 ml Intake Oral 600 ml 200 ml Output Urine Total 750 ml Height (Feet): 5 Height (Inches): 7.00 Weight (Pounds): 180 General Appearance: no apparent distress, lethargic Cardiovascular: other - variable Respiratory/Chest: decreased breath sounds Abdomen: distended Objective no change Noel Kim MD Nov 27, 2017 09:35
[2017-11-27] MEDS ORDERED: Tubing IV Secondary IV ONE ×2 (10:43→10:44)
[2017-11-27] MEDS ORDERED: NS 275ml ONE (10:44)
[2017-11-27] MEDS ORDERED: Sterile Water Irrig 1000ml IRRIG ONE (10:44)
--- NOTE | 2017-11-27 11:15 | General Progress Note ---
Assessment/Plan Problem List: (1) Atrial fibrillation with RVR ICD Codes: I48.91 - Unspecified atrial fibrillation SNOMED: 932156504601358 (2) Coagulopathy ICD Codes: D68.9 - Coagulation defect, unspecified SNOMED: 84347922 (3) Hepatic encephalopathy ICD Codes: K72.90 - Hepatic failure, unspecified without coma SNOMED: 93198825 (4) Cirrhosis ICD Codes: K74.60 - Unspecified cirrhosis of liver SNOMED: 80215789 Qualifiers: Qualified Codes: K70.31 - Alcoholic cirrhosis of liver with ascites (5) Anemia ICD Codes: D64.9 - Anemia, unspecified SNOMED: 419620051 Qualifiers: Qualified Codes: D64.9 - Anemia, unspecified Assessment/Plan cont prednisone for ETOH hepatitis and elevated discriminant factor dc lactulose dc heparin given low PLT and stool ob positive fu renal recs possible EGD for Wednesday ppi Subjective ROS Limited/Unobtainable: Yes Allergies: Coded Allergies: No Known Allergies (Unverified , 08/30/17) Objective Last 24 Hour Vital Signs Date Time Temp Pulse Resp B/P (MAP) Pulse Ox O2 Delivery O2 Flow Rate FiO2 11/27/17 10:20 108 11/27/17 09:00 Room Air Room Air 11/27/17 08:48 144/88 11/27/17 08:48 108 144/88 11/27/17 08:00 97.3 108 19 144/88 (106) 96 97.3 11/27/17 06:29 132/64 11/27/17 04:00 81 11/27/17 04:00 98.2 68 19 132/64 (86) 95 98.2 11/27/17 00:00 97.7 79 20 129/75 (93) 95 97.7 11/27/17 00:00 81 11/26/17 21:25 120/69 11/26/17 21:14 81 120/69 11/26/17 21:00 Room Air Room Air 11/26/17 20:00 78 11/26/17 20:00 96.9 81 20 120/69 (86) 95 96.9 11/26/17 16:00 97.9 89 20 121/74 (90) 98 97.9 11/26/17 16:00 82 11/26/17 14:42 118/72 11/26/17 12:00 90 11/26/17 12:00 97.7 88 20 118/72 (87) 98 97.7 Intake and Output 11/26/17 11/27/17 19:00 07:00 Intake Total 600 ml 200 ml Output Total 750 ml Balance 600 ml -550 ml Intake Oral 600 ml 200 ml Output Urine Total 750 ml Height (Feet): 5 Height (Inches): 7.00 Weight (Pounds): 180 General Appearance: no apparent distress EENT: normal ENT inspection Neck: supple Cardiovascular: normal rate Respiratory/Chest: decreased breath sounds Abdomen: normal bowel sounds, non tender, soft Extremities: non-tender Robin Choudhary MD Nov 27, 2017 11:15
[2017-11-27 12:13] VITALS: BP 130/82
--- NOTE | 2017-11-27 14:39 | Cardiology Progress Note ---
Assessment/Plan Status: stable, progressing Assessment/Plan Assessment: 1) Cirrhosis (2) Anemia (3) Iron deficiency (4) Systolic and diastolic CHF, acute on chronic (5) Atrial fibrillation (6) Hypoglycemia Plan: Hold aldactone in setting of RAMONE and hyperkalemia Continue coreg for heart failure and afib - increase dose as tolerated Hydralazine/nitro for preload/afterload reduction No indication for cardioversion Recommend stopping midodrine as this will increase afterload in a failing heart and worsen cardiac output, his SVR is already at a maximum Paracentesis + Albumin to support BP Recommend EGD to evaluate for varicies when stable - plan for wednesday Steroids started per GI Mild diuresis for pulmonary vascular congestion. Defer ICD due to medication non compliance and prognosis <1 year Continue telemetry to evaluate for arrhythmias Patient did not qualify for life vest on previous admission Subjective Cardiovascular: Reports: no symptoms Respiratory: Reports: no symptoms Gastrointestinal/Abdominal: Reports: no symptoms Genitourinary: Reports: no symptoms Subjective No aucte events, vitals stable, H/H dropping Vitals stable, NGT out. Planning on EGD wednesday No distress Objective Last 24 Hour Vital Signs Date Time Temp Pulse Resp B/P (MAP) Pulse Ox O2 Delivery O2 Flow Rate FiO2 11/27/17 13:21 130/82 11/27/17 12:13 97.3 87 18 130/82 (98) 96 97.3 11/27/17 11:59 85 11/27/17 10:20 108 11/27/17 09:00 Room Air Room Air 11/27/17 08:48 144/88 11/27/17 08:48 108 144/88 11/27/17 08:00 82 11/27/17 08:00 97.3 108 19 144/88 (106) 96 97.3 11/27/17 06:29 132/64 11/27/17 04:00 81 11/27/17 04:00 98.2 68 19 132/64 (86) 95 98.2 11/27/17 00:00 97.7 79 20 129/75 (93) 95 97.7 11/27/17 00:00 81 11/26/17 21:25 120/69 11/26/17 21:14 81 120/69 11/26/17 21:00 Room Air Room Air 11/26/17 20:00 78 8/31/18 20:00 96.9 81 20 120/69 (86) 95 96.9 11/26/17 16:00 97.9 89 20 121/74 (90) 98 97.9 11/26/17 16:00 82 11/26/17 14:42 118/72 General Appearance: no apparent distress, alert EENT: PERRL/EOMI, normal ENT inspection Neck: non-tender, normal alignment Rhythm: NSR Cardiovascular: normal peripheral pulses, normal rate Respiratory/Chest: chest wall non-tender, lungs clear Abdomen: normal bowel sounds, non tender Extremities: normal range of motion, non-tender, normal inspection, no calf tenderness, no swelling 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
[2017-11-27 16:00] VITALS: BP 122/69
--- NOTE | 2017-11-27 17:56 | General Progress Note ---
Assessment/Plan Status: stable Assessment/Plan #. 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 Hepatitis and human immunodeficiency virus are negative. Counts in line with historical values over time, continues to persist --> Ultrasound of the abdomen from last admission showed cirrhosis/HSM --> Tumor markers reviewed and are negative from before. --> Likely leukopenia secondary to splenomegaly. Give neupogen if ANC <1000 --> s/p paracentesis, 11/22: S/P paracentesis, yielding 5.9L of fluid. await cytology though in prior was negative --> Current WBC of 3.5, low 2. Anemia due to underlying chronic disease, appears to be stable. --> anemia w/u if hgb worsens --> Current Hgb of 7.9, stable. 3. Coagulopathy, likely related to underlying cirrhosis of the liver. --> VitK prn basis, given by GI 4. Hyperkalemia, given Kayexalate, currently improved. 5. Biventricular failure with severe pulmonary hypertension. The patient is seen by Cardiology. 6. Ascites, --> S/P paracentesis, yielding 5.9 liters of fluid, 11/26 The time the note was entered does not necessarily correspond to the time the patient was seen. Subjective Date patient seen: Nov 27, 2017 ROS Limited/Unobtainable: Yes Hematologic/Lymphatic: Reports: anemia Allergies: Coded Allergies: No Known Allergies (Unverified , 08/30/17) All Systems: reviewed and negative except above Subjective Pt awake and alert. No acute events. Hgb trending downwards, closely monitor. VS stable. Objective Last 24 Hour Vital Signs Date Time Temp Pulse Resp B/P (MAP) Pulse Ox O2 Delivery O2 Flow Rate FiO2 11/27/17 16:06 81 11/27/17 16:00 97.7 78 18 122/69 (86) 97 97.7 11/27/17 13:21 130/82 11/27/17 12:13 97.3 87 18 130/82 (98) 96 97.3 11/27/17 11:59 85 11/27/17 10:20 108 11/27/17 09:00 Room Air Room Air 11/27/17 08:48 144/88 11/27/17 08:48 108 144/88 11/27/17 08:00 82 11/27/17 08:00 97.3 108 19 144/88 (106) 96 97.3 11/27/17 06:29 132/64 11/27/17 04:00 81 11/27/17 04:00 98.2 68 19 132/64 (86) 95 98.2 11/27/17 00:00 97.7 79 20 129/75 (93) 95 97.7 11/27/17 00:00 81 11/26/17 21:25 120/69 11/26/17 21:14 81 120/69 11/26/17 21:00 Room Air Room Air 11/26/17 20:00 78 11/26/17 20:00 96.9 81 20 120/69 (86) 95 96.9 Intake and Output 11/26/17 11/27/17 19:00 07:00 Intake Total 600 ml 200 ml Output Total 750 ml Balance 600 ml -550 ml Intake Oral 600 ml 200 ml Output Urine Total 750 ml Height (Feet): 5 Height (Inches): 7.00 Weight (Pounds): 180 General Appearance: no apparent distress EENT: PERRL/EOMI Neck: normal alignment Cardiovascular: normal peripheral pulses Respiratory/Chest: no respiratory distress Abdomen: soft Christiano Hoffmann MD Nov 27, 2017 17:56
[2017-11-27 20:00] VITALS: BP 127/76
--- NOTE | 2017-11-27 23:07 | General Progress Note ---
Assessment/Plan Status: stable, progressing Assessment/Plan encephalopathy due to [facility] [place] anxiety ativan prn Subjective Date patient seen: Nov 27, 2017 Neurologic/Psychiatric: Reports: anxiety, depressed, emotional problems Allergies: Coded Allergies: No Known Allergies (Unverified , 08/30/17) Objective Last 24 Hour Vital Signs Date Time Temp Pulse Resp B/P (MAP) Pulse Ox O2 Delivery O2 Flow Rate FiO2 11/27/17 21:32 127/76 11/27/17 21:32 76 127/76 11/27/17 21:00 Room Air Room Air 11/27/17 20:25 76 11/27/17 20:00 96.8 79 20 127/76 (93) 97 96.8 11/27/17 16:06 81 11/27/17 16:00 97.7 78 18 122/69 (86) 97 97.7 11/27/17 13:21 130/82 11/27/17 12:13 97.3 87 18 130/82 (98) 96 97.3 11/27/17 11:59 85 11/27/17 10:20 108 11/27/17 09:00 Room Air Room Air 11/27/17 08:48 144/88 11/27/17 08:48 108 144/88 11/27/17 08:00 82 11/27/17 08:00 97.3 108 19 144/88 (106) 96 97.3 11/27/17 06:29 132/64 11/27/17 04:00 81 11/27/17 04:00 98.2 68 19 132/64 (86) 95 98.2 11/27/17 00:00 97.7 79 20 129/75 (93) 95 97.7 11/27/17 00:00 81 Intake and Output 11/26/17 11/27/17 19:00 07:00 Intake Total 600 ml 200 ml Output Total 750 ml Balance 600 ml -550 ml Intake Oral 600 ml 200 ml Output Urine Total 750 ml Laboratory Tests 11/27/17 19:30: Stool Occult Blood [Pending] Height (Feet): 5 Height (Inches): 7.00 Weight (Pounds): 180 General Appearance: WD/WN, no apparent distress, alert, confused Ziyad Ledezma MD Nov 27, 2017 23:07
--- NOTE | 2017-11-27 23:07 | General Progress Note ---
Assessment/Plan Status: stable, progressing Assessment/Plan encephalopathy due to [facility] [place] anxiety ativan prn Subjective Date patient seen: Nov 26, 2017 Neurologic/Psychiatric: Reports: anxiety, depressed, emotional problems Allergies: Coded Allergies: No Known Allergies (Unverified , 08/30/17) Objective Last 24 Hour Vital Signs Date Time Temp Pulse Resp B/P (MAP) Pulse Ox O2 Delivery O2 Flow Rate FiO2 11/27/17 21:32 127/76 11/27/17 21:32 76 127/76 11/27/17 21:00 Room Air Room Air 11/27/17 20:25 76 11/27/17 20:00 96.8 79 20 127/76 (93) 97 96.8 11/27/17 16:06 81 11/27/17 16:00 97.7 78 18 122/69 (86) 97 97.7 11/27/17 13:21 130/82 11/27/17 12:13 97.3 87 18 130/82 (98) 96 97.3 11/27/17 11:59 85 11/27/17 10:20 108 11/27/17 09:00 Room Air Room Air 11/27/17 08:48 144/88 11/27/17 08:48 108 144/88 11/27/17 08:00 82 11/27/17 08:00 97.3 108 19 144/88 (106) 96 97.3 11/27/17 06:29 132/64 11/27/17 04:00 81 11/27/17 04:00 98.2 68 19 132/64 (86) 95 98.2 11/27/17 00:00 97.7 79 20 129/75 (93) 95 97.7 11/27/17 00:00 81 Intake and Output 11/26/17 11/27/17 19:00 07:00 Intake Total 600 ml 200 ml Output Total 750 ml Balance 600 ml -550 ml Intake Oral 600 ml 200 ml Output Urine Total 750 ml Laboratory Tests 11/27/17 19:30: Stool Occult Blood [Pending] Height (Feet): 5 Height (Inches): 7.00 Weight (Pounds): 180 General Appearance: no apparent distress, alert Ziyad Ledezma MD Nov 27, 2017 23:07
[2017-11-28] VITALS: BP 119/81
[2017-11-28] MEDS: Aluminum Hydroxide Gel Susp 15ml ORAL SCH ×2 (00:13→05:37)
[2017-11-28 04:00] VITALS: BP 138/79
[2017-11-28] MEDS: HydrALAZINE 25mg tab NG SCH ×3 (05:36→21:54)
[2017-11-28 06:21] LABS: HEMATOCRIT 27.6 % (42.0-52.0); HEMOGLOBIN 8.6 G/DL (14.2-18.0); MEAN CORPUSCULAR VOLUME 92 FL (80-99); PLATELET COUNT 63 K/UL (150-450); RED BLOOD COUNT 3.01 M/UL (4.70-6.10); RED CELL DISTRIBUTION WIDTH 18.8 % (11.6-14.8); WHITE BLOOD COUNT 2.9 K/UL (4.8-10.8)
[2017-11-28 06:58] LABS: ALANINE AMINOTRANSFERASE 209 U/L (12-78); ALBUMIN 2.7 G/DL (3.4-5.0); ALBUMIN/GLOBULIN RATIO 0.7 (1.0-2.7); ALKALINE PHOSPHATASE 155 U/L (46-116); ANION GAP 15 mmol/L (5-15); ASPARTATE AMINO TRANSFERASE 107 U/L (15-37); BILIRUBIN,TOTAL 0.9 MG/DL (0.2-1.0); BLOOD UREA NITROGEN 75 mg/dL (7-18); CALCIUM 8.7 MG/DL (8.5-10.1); CARBON DIOXIDE 19 MMOL/L (21-32); CHLORIDE 105 MMOL/L (98-107); CREATININE 2.9 MG/DL (0.55-1.30); PHOSPHORUS 5.9 MG/DL (2.5-4.9); POTASSIUM 4.6 MMOL/L (3.5-5.1); SODIUM 138 MMOL/L (136-145)
[2017-11-28 08:00] VITALS: BP 132/83
[2017-11-28] MEDS: Imdur 30mg tab ORAL SCH (08:14)
[2017-11-28] MEDS: Pantoprazole Inj IVP SCH (08:15)
--- NOTE | 2017-11-28 08:38 | General Progress Note ---
Assessment/Plan Problem List: (1) Atrial fibrillation with RVR ICD Codes: I48.91 - Unspecified atrial fibrillation SNOMED: 720113593811547 (2) Coagulopathy ICD Codes: D68.9 - Coagulation defect, unspecified SNOMED: 46628813 (3) Hepatic encephalopathy ICD Codes: K72.90 - Hepatic failure, unspecified without coma SNOMED: 38978822 (4) Cirrhosis ICD Codes: K74.60 - Unspecified cirrhosis of liver SNOMED: 18494262 Qualifiers: Qualified Codes: K70.31 - Alcoholic cirrhosis of liver with ascites (5) Anemia ICD Codes: D64.9 - Anemia, unspecified SNOMED: 161450859 Qualifiers: Qualified Codes: D64.9 - Anemia, unspecified Assessment/Plan cont prednisone for ETOH hepatitis and elevated discriminant factor dc lactulose dc heparin given low PLT and stool ob positive fu renal recs possible EGD for Wednesday if in house o/w recommend as out patient ppi Subjective ROS Limited/Unobtainable: Yes Allergies: Coded Allergies: No Known Allergies (Unverified , 08/30/17) Objective Last 24 Hour Vital Signs Date Time Temp Pulse Resp B/P (MAP) Pulse Ox O2 Delivery O2 Flow Rate FiO2 11/28/17 08:14 132/83 11/28/17 08:14 83 132/83 11/28/17 08:00 97.3 83 20 132/83 (99) 98 97.3 11/28/17 05:36 138/79 11/28/17 04:00 97.7 69 20 138/79 (98) 98 97.7 11/28/17 04:00 77 11/28/17 00:00 80 11/28/17 00:00 98.0 77 19 119/81 (94) 96 98.0 11/27/17 21:32 127/76 11/27/17 21:32 76 127/76 11/27/17 21:00 Room Air Room Air 11/27/17 20:25 76 11/27/17 20:00 96.8 79 20 127/76 (93) 97 96.8 11/27/17 16:06 81 11/27/17 16:00 97.7 78 18 122/69 (86) 97 97.7 11/27/17 13:21 130/82 11/27/17 12:13 97.3 87 18 130/82 (98) 96 97.3 11/27/17 11:59 85 11/27/17 10:20 108 11/27/17 09:00 Room Air Room Air 11/27/17 08:48 144/88 11/27/17 08:48 108 144/88 Intake and Output 11/27/17 11/28/17 19:00 07:00 Intake Total 480 ml Output Total 400 ml 275 ml Balance 80 ml -275 ml Intake Oral 480 ml Output Urine Total 400 ml 275 ml Laboratory Tests 11/27/17 19:30: Stool Occult Blood [Pending] 11/28/17 05:30: White Blood Count 2.9L, Red Blood Count 3.01L, Hemoglobin 8.6L, Hematocrit 27.6L , Mean Corpuscular Volume 92, Mean Corpuscular Hemoglobin 28.6, Mean Corpuscular Hemoglobin Concent 31.2L, Red Cell Distribution Width 18.8H, Platelet Count 63L, Mean Platelet Volume 13.5H, Neutrophils (%) (Auto) , Lymphocytes (%) (Auto) , Monocytes (%) (Auto) , Eosinophils (%) (Auto) , Basophils (%) (Auto) , Neutrophils % (Manual) [Pending], Lymphocytes % (Manual) [Pending], Platelet Estimate [Pending], Platelet Morphology [Pending], Sodium Level 138, Potassium Level 4.6, Chloride Level 105, Carbon Dioxide Level 19L, Anion Gap 15, Blood Urea Nitrogen 75H, Creatinine 2.9H, Estimat Glomerular Filtration Rate , Glucose Level 88, Uric Acid 9.2H, Calcium Level 8.7, Phosphorus Level 5.9H, Magnesium Level 2.0, Total Bilirubin 0.9, Aspartate Amino Transf (AST/SGOT) 107H, Alanine Aminotransferase (ALT/SGPT) 209H, Alkaline Phosphatase 155H, C-Reactive Protein, Quantitative 1.0H, Pro-B-Type Natriuretic Peptide > 40922L, Total Protein 6.8, Albumin 2.7L, Globulin 4.1, Albumin/Globulin Ratio 0.7L, Digoxin Level 1.3 Height (Feet): 5 Height (Inches): 7.00 Weight (Pounds): 179 General Appearance: no apparent distress EENT: normal ENT inspection Neck: supple Cardiovascular: normal rate Respiratory/Chest: decreased breath sounds Abdomen: normal bowel sounds, non tender, soft Extremities: non-tender Robin Choudhary MD Nov 28, 2017 08:38
[2017-11-28 12:00] VITALS: BP 125/80
--- NOTE | 2017-11-28 12:31 | Cardiology Progress Note ---
Assessment/Plan Status: stable Assessment/Plan Assessment: 1) Cirrhosis (2) Anemia (3) Iron deficiency (4) Systolic and diastolic CHF, acute on chronic (5) Atrial fibrillation (6) Hypoglycemia Plan: Hold aldactone in setting of RAMONE and hyperkalemia Continue coreg for heart failure and afib - increase dose as tolerated Hydralazine/nitro for preload/afterload reduction No indication for cardioversion Recommend stopping midodrine as this will increase afterload in a failing heart and worsen cardiac output, his SVR is already at a maximum Paracentesis + Albumin to support BP Recommend EGD to evaluate for varicies when stable - plan for wednesday Steroids started per GI Mild diuresis for pulmonary vascular congestion. Defer ICD due to medication non compliance and prognosis <1 year Continue telemetry to evaluate for arrhythmias Patient did not qualify for life vest on previous admission Subjective Cardiovascular: Reports: no symptoms Respiratory: Reports: no symptoms Gastrointestinal/Abdominal: Reports: no symptoms Genitourinary: Reports: no symptoms Subjective No aucte events, vitals stable, H/H dropping Vitals stable, NGT out. Planning on EGD wednesday No distress Objective Last 24 Hour Vital Signs Date Time Temp Pulse Resp B/P (MAP) Pulse Ox O2 Delivery O2 Flow Rate FiO2 11/28/17 09:00 Room Air Room Air 11/28/17 08:14 132/83 11/28/17 08:14 83 132/83 11/28/17 08:00 97.3 83 20 132/83 (99) 98 97.3 11/28/17 08:00 83 11/28/17 05:36 138/79 11/28/17 04:00 97.7 69 20 138/79 (98) 98 97.7 11/28/17 04:00 77 11/28/17 00:00 80 11/28/17 00:00 98.0 77 19 119/81 (94) 96 98.0 11/27/17 21:32 127/76 11/27/17 21:32 76 127/76 11/27/17 21:00 Room Air Room Air 11/27/17 20:25 76 11/27/17 20:00 96.8 79 20 127/76 (93) 97 96.8 11/27/17 16:06 81 11/27/17 16:00 97.7 78 18 122/69 (86) 97 97.7 11/27/17 13:21 130/82 General Appearance: no apparent distress, alert EENT: PERRL/EOMI, normal ENT inspection, pharynx normal Neck: non-tender, normal alignment Rhythm: NSR Cardiovascular: normal peripheral pulses, normal rate, regular rhythm Respiratory/Chest: chest wall non-tender, lungs clear Abdomen: normal bowel sounds, non tender, soft Extremities: normal range of motion, non-tender 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 Intake and Output 11/27/17 11/28/17 19:00 07:00 Intake Total 480 ml Output Total 400 ml 275 ml Balance 80 ml -275 ml Intake Oral 480 ml Output Urine Total 400 ml 275 ml Laboratory Tests Test 11/27/17 19:30 11/28/17 05:30 Stool Occult Blood Negative (NEGATIVE) White Blood Count 2.9 K/UL (4.8-10.8) L Red Blood Count 3.01 M/UL (4.70-6.10) L Hemoglobin 8.6 G/DL (14.2-18.0) L Hematocrit 27.6 % (42.0-52.0) L Mean Corpuscular Volume 92 FL (80-99) Mean Corpuscular Hemoglobin 28.6 PG (27.0-31.0) Mean Corpuscular Hemoglobin Concent 31.2 G/DL (32.0-36.0) L Red Cell Distribution Width 18.8 % (11.6-14.8) H Platelet Count 63 K/UL (150-450) L Mean Platelet Volume 13.5 FL (6.5-10.1) H Neutrophils (%) (Auto) % (45.0-75.0) Lymphocytes (%) (Auto) % (20.0-45.0) Monocytes (%) (Auto) % (1.0-10.0) Eosinophils (%) (Auto) % (0.0-3.0) Basophils (%) (Auto) % (0.0-2.0) Differential Total Cells Counted 100 Neutrophils % (Manual) 83 % (45-75) H Lymphocytes % (Manual) 12 % (20-45) L Monocytes % (Manual) 5 % (1-10) Eosinophils % (Manual) 0 % (0-3) Basophils % (Manual) 0 % (0-2) Band Neutrophils 0 % (0-8) Platelet Estimate Decreased L Platelet Morphology Normal Hypochromasia 1+ Anisocytosis 1+ [place] Cells 1+ Schistocytes 1+ Sodium Level 138 MMOL/L (136-145) Potassium Level 4.6 MMOL/L (3.5-5.1) Chloride Level 105 MMOL/L (98-107) Carbon Dioxide Level 19 MMOL/L (21-32) L Anion Gap 15 mmol/L (5-15) Blood Urea Nitrogen 75 mg/dL (7-18) H Creatinine 2.9 MG/DL (0.55-1.30) H Estimat Glomerular Filtration Rate mL/min (>60) Glucose Level 88 MG/DL (74-106) Uric Acid 9.2 MG/DL (2.6-7.2) H Calcium Level 8.7 MG/DL (8.5-10.1) Phosphorus Level 5.9 MG/DL (2.5-4.9) H Magnesium Level 2.0 MG/DL (1.8-2.4) Total Bilirubin 0.9 MG/DL (0.2-1.0) Aspartate Amino Transf (AST/SGOT) 107 U/L (15-37) H Alanine Aminotransferase (ALT/SGPT) 209 U/L (12-78) H Alkaline Phosphatase 155 U/L (46-116) H C-Reactive Protein, Quantitative 1.0 mg/dL (0.00-0.90) H Pro-B-Type Natriuretic Peptide > 82506 pg/mL (0-125) H Total Protein 6.8 G/DL (6.4-8.2) Albumin 2.7 G/DL (3.4-5.0) L Globulin 4.1 g/dL Albumin/Globulin Ratio 0.7 (1.0-2.7) L Digoxin Level 1.3 NG/ML (0.5-2.0) FilsoKieran samuels MD Nov 28, 2017 12:31
--- NOTE | 2017-11-28 12:36 | Nephrology Progress Note ---
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 (3) Anemia (4) 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 hypertension (5) Cirrhosis and encephalopathy (6) Atrial fibrillation (7) Hypoglycemia (8) elevated liver enzymes) Plan on prednisone trial per GI yates- off midodrine- Digoxin- Nitrates- Lactulose as needed adjust meds for bp Optimize cardiac condition gentle diuresis correct electrolyte imbalances Subjective ROS Limited/Unobtainable: No Constitutional: Reports: malaise, weakness Objective Objective Last 24 Hour Vital Signs Date Time Temp Pulse Resp B/P (MAP) Pulse Ox O2 Delivery O2 Flow Rate FiO2 11/28/17 09:00 Room Air Room Air 11/28/17 08:14 132/83 11/28/17 08:14 83 132/83 11/28/17 08:00 97.3 83 20 132/83 (99) 98 97.3 11/28/17 08:00 83 11/28/17 05:36 138/79 11/28/17 04:00 97.7 69 20 138/79 (98) 98 97.7 11/28/17 04:00 77 11/28/17 00:00 80 11/28/17 00:00 98.0 77 19 119/81 (94) 96 98.0 11/27/17 21:32 127/76 11/27/17 21:32 76 127/76 11/27/17 21:00 Room Air Room Air 11/27/17 20:25 76 11/27/17 20:00 96.8 79 20 127/76 (93) 97 96.8 11/27/17 16:06 81 11/27/17 16:00 97.7 78 18 122/69 (86) 97 97.7 11/27/17 13:21 130/82 Intake and Output 11/27/17 11/28/17 19:00 07:00 Intake Total 480 ml Output Total 400 ml 275 ml Balance 80 ml -275 ml Intake Oral 480 ml Output Urine Total 400 ml 275 ml Laboratory Tests 11/27/17 19:30: Stool Occult Blood Negative 11/28/17 05:30: White Blood Count 2.9L, Red Blood Count 3.01L, Hemoglobin 8.6L, Hematocrit 27.6L , Mean Corpuscular Volume 92, Mean Corpuscular Hemoglobin 28.6, Mean Corpuscular Hemoglobin Concent 31.2L, Red Cell Distribution Width 18.8H, Platelet Count 63L, Mean Platelet Volume 13.5H, Neutrophils (%) (Auto) , Lymphocytes (%) (Auto) , Monocytes (%) (Auto) , Eosinophils (%) (Auto) , Basophils (%) (Auto) , Differential Total Cells Counted 100, Neutrophils % ( Manual) 83H, Lymphocytes % (Manual) 12L, Monocytes % (Manual) 5, Eosinophils % ( Manual) 0, Basophils % (Manual) 0, Band Neutrophils 0, Platelet Estimate DecreasedL, Platelet Morphology Normal, Hypochromasia 1+, Anisocytosis 1+, [place] Cells 1+, Schistocytes 1+, Sodium Level 138, Potassium Level 4.6, Chloride Level 105, Carbon Dioxide Level 19L, Anion Gap 15, Blood Urea Nitrogen 75H, Creatinine 2.9H, Estimat Glomerular Filtration Rate , Glucose Level 88, Uric Acid 9.2H, Calcium Level 8.7, Phosphorus Level 5.9H, Magnesium Level 2.0, Total Bilirubin 0.9, Aspartate Amino Transf (AST/SGOT) 107H, Alanine Aminotransferase (ALT/SGPT) 209H, Alkaline Phosphatase 155H, C-Reactive Protein, Quantitative 1.0H, Pro-B-Type Natriuretic Peptide > 51812P, Total Protein 6.8, Albumin 2.7L, Globulin 4.1, Albumin/Globulin Ratio 0.7L, Digoxin Level 1.3 Height (Feet): 5 Height (Inches): 7.00 Weight (Pounds): 179 General Appearance: no apparent distress Cardiovascular: normal rate Respiratory/Chest: decreased breath sounds Abdomen: distended Objective no change Noel Kim MD Nov 28, 2017 12:35
--- NOTE | 2017-11-28 14:02 | General Progress Note ---
Assessment/Plan Status: stable Assessment/Plan #. 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 Hepatitis and human immunodeficiency virus are negative. Counts in line with historical values over time, continues to persist --> Ultrasound of the abdomen from last admission showed cirrhosis/HSM --> Tumor markers reviewed and are negative from before. --> Likely leukopenia secondary to splenomegaly. Give neupogen if ANC <1000 --> s/p paracentesis, 11/22: S/P paracentesis, yielding 5.9L of fluid. await cytology though in prior was negative --> Current WBC of 2.9, low 2. Anemia due to underlying chronic disease, appears to be stable. --> anemia w/u if hgb worsens --> Current Hgb of 8.6, stable. 3. Coagulopathy, likely related to underlying cirrhosis of the liver. --> VitK prn basis, given by GI 4. Hyperkalemia, given Kayexalate, currently improved. 5. Biventricular failure with severe pulmonary hypertension. The patient has seen by Cardiology. 6. Ascites, --> S/P paracentesis, yielding 5.9 liters of fluid, 11/26 The time the note was entered does not necessarily correspond to the time the patient was seen. Subjective Date patient seen: Nov 28, 2017 ROS Limited/Unobtainable: Yes Hematologic/Lymphatic: Reports: anemia Allergies: Coded Allergies: No Known Allergies (Unverified , 08/30/17) All Systems: reviewed and negative except above Subjective Pt awake and alert. No acute events. DC planning. Outpatient EGD recommended. Objective Last 24 Hour Vital Signs Date Time Temp Pulse Resp B/P (MAP) Pulse Ox O2 Delivery O2 Flow Rate FiO2 11/28/17 13:47 75 11/28/17 13:47 132/83 11/28/17 09:00 Room Air Room Air 11/28/17 08:14 132/83 11/28/17 08:14 83 132/83 11/28/17 08:00 97.3 83 20 132/83 (99) 98 97.3 11/28/17 08:00 83 11/28/17 05:36 138/79 11/28/17 04:00 97.7 69 20 138/79 (98) 98 97.7 11/28/17 04:00 77 11/28/17 00:00 80 11/28/17 00:00 98.0 77 19 119/81 (94) 96 98.0 11/27/17 21:32 127/76 11/27/17 21:32 76 127/76 11/27/17 21:00 Room Air Room Air 11/27/17 20:25 76 11/27/17 20:00 96.8 79 20 127/76 (93) 97 96.8 11/27/17 16:06 81 11/27/17 16:00 97.7 78 18 122/69 (86) 97 97.7 Intake and Output 11/27/17 11/28/17 19:00 07:00 Intake Total 480 ml Output Total 400 ml 275 ml Balance 80 ml -275 ml Intake Oral 480 ml Output Urine Total 400 ml 275 ml Laboratory Tests 11/27/17 19:30: Stool Occult Blood Negative 11/28/17 05:30: White Blood Count 2.9L, Red Blood Count 3.01L, Hemoglobin 8.6L, Hematocrit 27.6L , Mean Corpuscular Volume 92, Mean Corpuscular Hemoglobin 28.6, Mean Corpuscular Hemoglobin Concent 31.2L, Red Cell Distribution Width 18.8H, Platelet Count 63L, Mean Platelet Volume 13.5H, Neutrophils (%) (Auto) , Lymphocytes (%) (Auto) , Monocytes (%) (Auto) , Eosinophils (%) (Auto) , Basophils (%) (Auto) , Differential Total Cells Counted 100, Neutrophils % ( Manual) 83H, Lymphocytes % (Manual) 12L, Monocytes % (Manual) 5, Eosinophils % ( Manual) 0, Basophils % (Manual) 0, Band Neutrophils 0, Platelet Estimate DecreasedL, Platelet Morphology Normal, Hypochromasia 1+, Anisocytosis 1+, [place] Cells 1+, Schistocytes 1+, Sodium Level 138, Potassium Level 4.6, Chloride Level 105, Carbon Dioxide Level 19L, Anion Gap 15, Blood Urea Nitrogen 75H, Creatinine 2.9H, Estimat Glomerular Filtration Rate , Glucose Level 88, Uric Acid 9.2H, Calcium Level 8.7, Phosphorus Level 5.9H, Magnesium Level 2.0, Total Bilirubin 0.9, Aspartate Amino Transf (AST/SGOT) 107H, Alanine Aminotransferase (ALT/SGPT) 209H, Alkaline Phosphatase 155H, C-Reactive Protein, Quantitative 1.0H, Pro-B-Type Natriuretic Peptide > 99871H, Total Protein 6.8, Albumin 2.7L, Globulin 4.1, Albumin/Globulin Ratio 0.7L, Digoxin Level 1.3 Height (Feet): 5 Height (Inches): 7.00 Weight (Pounds): 179 General Appearance: no apparent distress EENT: PERRL/EOMI Neck: normal alignment Cardiovascular: normal peripheral pulses Respiratory/Chest: no respiratory distress Abdomen: soft Christiano Hoffmann MD Nov 28, 2017 14:02
--- NOTE | 2017-11-28 14:12 | General Progress Note ---
Assessment/Plan Status: stable Assessment/Plan 1) Acute encephalopathy-resolved 2) Acute hypoxemic respiratory failure- resolved 3) Hypoglycemia- improved 4) Decompensated cirrhosis- improving -s/p large volume paracentesis 11/22 with 5.7 L -GI consulted for decompensated cirrhosis management- recs appreciated -lactulose, rifaximin, steroids, octreotride, -albumin x 3 days -O2 support as needed -Creatinine stable--around 2.9-3.0, hepatorenal syndrome unlikely- d/c'd steroids, octreotride drip -Psychiatry consulted- recs appreciated 4) Acute on chronic renal failure Hyperkalemia -Renal consult- recs appreciated -Spironolactone discontinued -Adkins inserted--remove prior to d/c for voiding trial -gentle diureses -medical treatment of hyperkalemia 5) Acute on chronic systolic heart failure -Cardiology consulted- recs appreciated -continue beta dominguez, nitrate, hydralazine -avoid midodrine 6) Pancytopenia -Hematology consulted- recs appreciated -likely secondary to cirrhosis -continue to monitor 7) UTI -Enterococcus faecalis- s/p ceftriaxone, changed to ampicillin based on sensitivities (11/26-) 8) Acute on chronic anemia, +FOBT, concern for occult GI bleed -GI consulted, possible plan for EGD on DVT Prophylaxis: scd's Code status: full Hospital Classification declaration: Based on this initial evaluation, and depending on the patient's clinical course, I anticipate that this patient will require hospitalization for 1-2 days. Disposition: Once the patient is stable to leave the hospital, I anticipate the patient will likely be discharged to the following environment: Home w/ HH + CG vs SNF I spent 42 minutes on this patient's case, and 25 minutes was dedicated to counseling and/or care coordination. Time of note may not reflect time of encounter. Subjective Date patient seen: Nov 28, 2017 Time patient seen: 14:12 ROS Limited/Unobtainable: No Constitutional: Reports: no symptoms HEENT: Reports: no symptoms Cardiovascular: Reports: edema Respiratory: Reports: no symptoms Gastrointestinal/Abdominal: Reports: abdominal pain Genitourinary: Reports: no symptoms Endocrine: Reports: no symptoms Hematologic/Lymphatic: Reports: no symptoms Allergies: Coded Allergies: No Known Allergies (Unverified , 08/30/17) Subjective No acute o/n events GI planning possible EGD on Pt doing well. Denies chest pain, SOB Discussed discharge w/ patient who states he lives w/ his sister but he is unsure if she can fully help him. He is amenable to SNF/rehab Objective Last 24 Hour Vital Signs Date Time Temp Pulse Resp B/P (MAP) Pulse Ox O2 Delivery O2 Flow Rate FiO2 11/28/17 13:47 75 11/28/17 13:47 132/83 11/28/17 09:00 Room Air Room Air 11/28/17 08:14 132/83 11/28/17 08:14 83 132/83 11/28/17 08:00 97.3 83 20 132/83 (99) 98 97.3 11/28/17 08:00 83 11/28/17 05:36 138/79 11/28/17 04:00 97.7 69 20 138/79 (98) 98 97.7 11/28/17 04:00 77 11/28/17 00:00 80 11/28/17 00:00 98.0 77 19 119/81 (94) 96 98.0 11/27/17 21:32 127/76 11/27/17 21:32 76 127/76 11/27/17 21:00 Room Air Room Air 11/27/17 20:25 76 11/27/17 20:00 96.8 79 20 127/76 (93) 97 96.8 11/27/17 16:06 81 11/27/17 16:00 97.7 78 18 122/69 (86) 97 97.7 Intake and Output 11/27/17 11/28/17 19:00 07:00 Intake Total 480 ml Output Total 400 ml 275 ml Balance 80 ml -275 ml Intake Oral 480 ml Output Urine Total 400 ml 275 ml Laboratory Tests 11/27/17 19:30: Stool Occult Blood Negative 11/28/17 05:30: White Blood Count 2.9L, Red Blood Count 3.01L, Hemoglobin 8.6L, Hematocrit 27.6L , Mean Corpuscular Volume 92, Mean Corpuscular Hemoglobin 28.6, Mean Corpuscular Hemoglobin Concent 31.2L, Red Cell Distribution Width 18.8H, Platelet Count 63L, Mean Platelet Volume 13.5H, Neutrophils (%) (Auto) , Lymphocytes (%) (Auto) , Monocytes (%) (Auto) , Eosinophils (%) (Auto) , Basophils (%) (Auto) , Differential Total Cells Counted 100, Neutrophils % ( Manual) 83H, Lymphocytes % (Manual) 12L, Monocytes % (Manual) 5, Eosinophils % ( Manual) 0, Basophils % (Manual) 0, Band Neutrophils 0, Platelet Estimate DecreasedL, Platelet Morphology Normal, Hypochromasia 1+, Anisocytosis 1+, [place] Cells 1+, Schistocytes 1+, Sodium Level 138, Potassium Level 4.6, Chloride Level 105, Carbon Dioxide Level 19L, Anion Gap 15, Blood Urea Nitrogen 75H, Creatinine 2.9H, Estimat Glomerular Filtration Rate , Glucose Level 88, Uric Acid 9.2H, Calcium Level 8.7, Phosphorus Level 5.9H, Magnesium Level 2.0, Total Bilirubin 0.9, Aspartate Amino Transf (AST/SGOT) 107H, Alanine Aminotransferase (ALT/SGPT) 209H, Alkaline Phosphatase 155H, C-Reactive Protein, Quantitative 1.0H, Pro-B-Type Natriuretic Peptide > 52503J, Total Protein 6.8, Albumin 2.7L, Globulin 4.1, Albumin/Globulin Ratio 0.7L, Digoxin Level 1.3 Height (Feet): 5 Height (Inches): 7.00 Weight (Pounds): 179 Objective General: alert, cooperative, no distress, appears stated age Head: normocephalic, without obvious abnormality, atraumatic Eyes: conjunctivae/corneas clear. PERRL, EOM's intact Throat: lips, mucosa, and tongue normal. MMM Neck: supple, symmetrical, trachea midline, and no JVD Lungs: clear to auscultation bilaterally Heart: regular rate and rhythm, S1, S2 normal, no murmur, click, rub or gallop Abdomen: soft, non-tender, non-distended, bowel sounds normal; Extremities: extremities normal, atraumatic, no cyanosis or edema Pulses: 2+ and symmetric Skin: skin color, texture, turgor normal; no rashes or lesions Neurologic: grossly normal, no focal deficits Jessica Banerjee M.D. Nov 28, 2017 14:12
[2017-11-28 16:00] VITALS: BP 132/76
[2017-11-28 20:00] VITALS: BP 120/70
[2017-11-29] VITALS: BP 129/74
[2017-11-29 04:00] VITALS: BP 133/79
[2017-11-29] MEDS: HydrALAZINE 25mg tab NG SCH ×3 (05:36→21:21)
--- NOTE | 2017-11-29 07:57 | General Progress Note ---
Assessment/Plan Problem List: (1) Atrial fibrillation with RVR ICD Codes: I48.91 - Unspecified atrial fibrillation SNOMED: 078980846542532 (2) Coagulopathy ICD Codes: D68.9 - Coagulation defect, unspecified SNOMED: 69067325 (3) Hepatic encephalopathy ICD Codes: K72.90 - Hepatic failure, unspecified without coma SNOMED: 98239200 (4) Cirrhosis ICD Codes: K74.60 - Unspecified cirrhosis of liver SNOMED: 99092654 Qualifiers: Qualified Codes: K70.31 - Alcoholic cirrhosis of liver with ascites (5) Anemia ICD Codes: D64.9 - Anemia, unspecified SNOMED: 689394234 Qualifiers: Qualified Codes: D64.9 - Anemia, unspecified Assessment/Plan cont prednisone for ETOH hepatitis and elevated discriminant factor dc lactulose dc heparin given low PLT and stool ob positive fu renal recs plan EGD in AM ppi fu labs Subjective ROS Limited/Unobtainable: Yes Allergies: Coded Allergies: No Known Allergies (Unverified , 08/30/17) Objective Last 24 Hour Vital Signs Date Time Temp Pulse Resp B/P (MAP) Pulse Ox O2 Delivery O2 Flow Rate FiO2 11/29/17 05:36 133/79 11/29/17 04:00 71 11/29/17 04:00 97.3 80 17 133/79 (97) 97 97.3 11/29/17 00:00 67 11/29/17 00:00 97.0 72 19 129/74 (92) 98 97.0 11/28/17 21:54 120/70 11/28/17 21:54 69 120/70 11/28/17 21:00 Room Air Room Air 11/28/17 20:00 97.0 69 20 120/70 (87) 97 97.0 11/28/17 20:00 69 11/28/17 16:00 96.8 73 20 132/76 (94) 97 96.8 11/28/17 16:00 75 11/28/17 13:47 75 11/28/17 13:47 132/83 11/28/17 12:00 97.3 75 20 125/80 (95) 99 97.3 11/28/17 12:00 68 11/28/17 09:00 Room Air Room Air 11/28/17 08:14 132/83 11/28/17 08:14 83 132/83 11/28/17 08:00 97.3 83 20 132/83 (99) 98 97.3 11/28/17 08:00 83 Intake and Output 11/28/17 11/29/17 19:00 07:00 Intake Total 700 ml Output Total 300 ml 600 ml Balance 400 ml -600 ml Intake Oral 700 ml Output Urine Total 300 ml 600 ml Height (Feet): 5 Height (Inches): 7.00 Weight (Pounds): 176 General Appearance: no apparent distress EENT: normal ENT inspection Neck: supple Cardiovascular: normal rate Respiratory/Chest: decreased breath sounds Abdomen: normal bowel sounds, non tender, soft Extremities: non-tender Robin Choudhary MD Nov 29, 2017 07:57
[2017-11-29 08:00] VITALS: BP 132/71
[2017-11-29] MEDS: Imdur 30mg tab ORAL SCH (09:16)
[2017-11-29 10:00] LABS: HEMATOCRIT 33.6 % (42.0-52.0); HEMOGLOBIN 10.3 G/DL (14.2-18.0); MEAN CORPUSCULAR VOLUME 93 FL (80-99); PLATELET COUNT 87 K/UL (150-450); RED BLOOD COUNT 3.61 M/UL (4.70-6.10); RED CELL DISTRIBUTION WIDTH 19.3 % (11.6-14.8); WHITE BLOOD COUNT 3.4 K/UL (4.8-10.8)
[2017-11-29 10:06] LABS: INR 1.7 (0.9-1.1)
[2017-11-29 10:07] LABS: ANION GAP 10 mmol/L (5-15); BLOOD UREA NITROGEN 82 mg/dL (7-18); CALCIUM 8.8 MG/DL (8.5-10.1); CARBON DIOXIDE 21 MMOL/L (21-32); CHLORIDE 103 MMOL/L (98-107); CREATININE 2.9 MG/DL (0.55-1.30); POTASSIUM 5.7 MMOL/L (3.5-5.1); SODIUM 134 MMOL/L (136-145)
--- NOTE | 2017-11-29 10:23 | General Progress Note ---
Assessment/Plan Assessment/Plan #. 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 Hepatitis and human immunodeficiency virus are negative. Counts in line with historical values over time, continues to persist --> Ultrasound of the abdomen from last admission showed cirrhosis/HSM --> Tumor markers reviewed and are negative from before. --> Likely leukopenia secondary to splenomegaly. Give neupogen if ANC <1000 --> s/p paracentesis, 11/22: S/P paracentesis, yielding 5.9L of fluid. await cytology though in prior was negative --> Current WBC of 2.9, low side 2. Anemia due to underlying chronic disease, appears to be stable. --> anemia w/u if hgb worsens, consider transfusion prn --> Current Hgb of 8.6, stable. 3. Coagulopathy, likely related to underlying cirrhosis of the liver. --> VitK prn basis, given by GI 4. Hyperkalemia, given Kayexalate, currently improved. 5. Biventricular failure with severe pulmonary hypertension. The patient has seen by Cardiology. 6. Ascites, --> S/P paracentesis, yielding 5.9 liters of fluid, 11/26 The time the note was entered does not necessarily correspond to the time the patient was seen. Subjective Constitutional: Denies: no symptoms, chills, diaphoresis, fever, malaise, weakness, other HEENT: Denies: no symptoms, eye pain, blurred vision, tearing, double vision, ear pain, ear discharge, nose pain, nose congestion, throat pain, throat swelling, mouth pain, mouth swelling, other Cardiovascular: Denies: no symptoms, chest pain, edema, irregular heart rate, lightheadedness, palpitations, syncope, other Respiratory: Denies: no symptoms, cough, orthopnea, shortness of breath, SOB with excertion, SOB at rest, sputum, stridor, wheezing, other Gastrointestinal/Abdominal: Denies: no symptoms, abdomen distended, abdominal pain, black stools, tarry stools, blood in stool, constipated, diarrhea, difficulty swallowing, nausea, poor appetite, poor fluid intake, rectal bleeding , vomiting, other Genitourinary: Denies: no symptoms, burning, discharge, frequency, flank pain, hematuria, incontinence, pain, urgency, other Neurologic/Psychiatric: Denies: no symptoms, anxiety, depressed, emotional problems, headache, numbness, paresthesia, pre-existing deficit, seizure, tingling, tremors, weakness, other Endocrine: Denies: no symptoms, excessive sweating, flushing, intolerance to cold, intolerance to heat, increased hunger, increased thirst, increased urine, unexplained weight gain, unexplained weight loss, other Hematologic/Lymphatic: Denies: no symptoms, anemia, easy bleeding, easy bruising, other Allergies: Coded Allergies: No Known Allergies (Unverified , 08/30/17) Subjective Pt awake and alert. No acute events. DC planning. am EGD recommended. Objective Last 24 Hour Vital Signs Date Time Temp Pulse Resp B/P (MAP) Pulse Ox O2 Delivery O2 Flow Rate FiO2 11/29/17 09:16 132/74 11/29/17 09:15 80 132/74 11/29/17 09:00 Room Air Room Air 11/29/17 08:00 75 11/29/17 08:00 97.0 91 18 132/71 (91) 99 97.0 11/29/17 05:36 133/79 11/29/17 04:00 71 11/29/17 04:00 97.3 80 17 133/79 (97) 97 97.3 11/29/17 00:00 67 11/29/17 00:00 97.0 72 19 129/74 (92) 98 97.0 11/28/17 21:54 120/70 11/28/17 21:54 69 120/70 11/28/17 21:00 Room Air Room Air 11/28/17 20:00 97.0 69 20 120/70 (87) 97 97.0 11/28/17 20:00 69 11/28/17 16:00 96.8 73 20 132/76 (94) 97 96.8 11/28/17 16:00 75 11/28/17 13:47 75 11/28/17 13:47 132/83 11/28/17 12:00 97.3 75 20 125/80 (95) 99 97.3 11/28/17 12:00 68 Intake and Output 11/28/17 11/29/17 19:00 07:00 Intake Total 700 ml Output Total 300 ml 600 ml Balance 400 ml -600 ml Intake Oral 700 ml Output Urine Total 300 ml 600 ml Laboratory Tests 11/29/17 09:00: White Blood Count 3.4L, Red Blood Count 3.61L, Hemoglobin 10.3L, Hematocrit 33.6L, Mean Corpuscular Volume 93, Mean Corpuscular Hemoglobin 28.5, Mean Corpuscular Hemoglobin Concent 30.6L, Red Cell Distribution Width 19.3H, Platelet Count 87L, Mean Platelet Volume 11.5H, Neutrophils (%) (Auto) , Lymphocytes (%) (Auto) , Monocytes (%) (Auto) , Eosinophils (%) (Auto) , Basophils (%) (Auto) , Neutrophils % (Manual) [Pending], Lymphocytes % (Manual) [Pending], Platelet Estimate [Pending], Platelet Morphology [Pending], Prothrombin Time 17.3H, Prothromb Time International Ratio 1.7H, Sodium Level 134L, Potassium Level 5.7H, Chloride Level 103, Carbon Dioxide Level 21, Anion Gap 10, Blood Urea Nitrogen 82H, Creatinine 2.9H, Estimat Glomerular Filtration Rate , Glucose Level 120H, Calcium Level 8.8 Height (Feet): 5 Height (Inches): 7.00 Weight (Pounds): 176 General Appearance: no apparent distress EENT: TMs normal Neck: non-tender Cardiovascular: normal rate Respiratory/Chest: normal breath sounds Abdomen: soft Edema: 1+ Leg (R), 1+ Pedal (L) Edema: mild edema Skin: normal pigmentation Christiano Hoffmann MD Nov 29, 2017 10:23
[2017-11-29] MEDS ORDERED: Sodium Polystyrene Sulfonate 15gm Powder ORAL SCH (10:57)
--- NOTE | 2017-11-29 10:59 | Nephrology Progress Note ---
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 (3) Anemia (4) 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 hypertension (5) Cirrhosis and encephalopathy (6) Atrial fibrillation (7) Hypoglycemia (8) elevated liver enzymes) Plan on prednisone trial per GI yates- off midodrine- Digoxin- Nitrates- Lactulose as needed adjust meds for bp Optimize cardiac condition gentle diuresis correct electrolyte imbalances one dose of Kayexelate Subjective ROS Limited/Unobtainable: No Constitutional: Reports: malaise Objective Objective Last 24 Hour Vital Signs Date Time Temp Pulse Resp B/P (MAP) Pulse Ox O2 Delivery O2 Flow Rate FiO2 11/29/17 09:16 132/74 11/29/17 09:15 80 132/74 11/29/17 09:00 Room Air Room Air 11/29/17 08:00 75 11/29/17 08:00 97.0 91 18 132/71 (91) 99 97.0 11/29/17 05:36 133/79 11/29/17 04:00 71 11/29/17 04:00 97.3 80 17 133/79 (97) 97 97.3 11/29/17 00:00 67 11/29/17 00:00 97.0 72 19 129/74 (92) 98 97.0 11/28/17 21:54 120/70 11/28/17 21:54 69 120/70 11/28/17 21:00 Room Air Room Air 11/28/17 20:00 97.0 69 20 120/70 (87) 97 97.0 11/28/17 20:00 69 11/28/17 16:00 96.8 73 20 132/76 (94) 97 96.8 11/28/17 16:00 75 11/28/17 13:47 75 11/28/17 13:47 132/83 11/28/17 12:00 97.3 75 20 125/80 (95) 99 97.3 11/28/17 12:00 68 Intake and Output 11/28/17 11/29/17 19:00 07:00 Intake Total 700 ml Output Total 300 ml 600 ml Balance 400 ml -600 ml Intake Oral 700 ml Output Urine Total 300 ml 600 ml Laboratory Tests 11/29/17 09:00: White Blood Count 3.4L, Red Blood Count 3.61L, Hemoglobin 10.3L, Hematocrit 33.6L, Mean Corpuscular Volume 93, Mean Corpuscular Hemoglobin 28.5, Mean Corpuscular Hemoglobin Concent 30.6L, Red Cell Distribution Width 19.3H, Platelet Count 87L, Mean Platelet Volume 11.5H, Neutrophils (%) (Auto) , Lymphocytes (%) (Auto) , Monocytes (%) (Auto) , Eosinophils (%) (Auto) , Basophils (%) (Auto) , Differential Total Cells Counted 100, Neutrophils % ( Manual) 77H, Lymphocytes % (Manual) 13L, Monocytes % (Manual) 10, Eosinophils % (Manual) 0, Basophils % (Manual) 0, Band Neutrophils 0, Platelet Estimate DecreasedL, Platelet Morphology Normal, Hypochromasia 1+, Poikilocytosis 2+, Anisocytosis 2+, [place] Cells 1+, Acanthocytes 2+, Prothrombin Time 17.3H, Prothromb Time International Ratio 1.7H, Sodium Level 134L, Potassium Level 5.7H , Chloride Level 103, Carbon Dioxide Level 21, Anion Gap 10, Blood Urea Nitrogen 82H, Creatinine 2.9H, Estimat Glomerular Filtration Rate , Glucose Level 120H, Calcium Level 8.8 Height (Feet): 5 Height (Inches): 7.00 Weight (Pounds): 176 General Appearance: no apparent distress Cardiovascular: tachycardia Respiratory/Chest: decreased breath sounds Abdomen: distended Objective no change Noel Kim MD Nov 29, 2017 10:59
[2017-11-29 12:00] VITALS: BP 128/80
--- NOTE | 2017-11-29 13:48 | General Progress Note ---
Assessment/Plan Status: not improved Assessment/Plan 1) Acute encephalopathy-resolved 2) Acute hypoxemic respiratory failure- resolved 3) Hypoglycemia- improved 4) Decompensated cirrhosis- improving -s/p large volume paracentesis 11/22 with 5.7 L -GI consulted for decompensated cirrhosis management- recs appreciated -intial recs: lactulose, rifaximin, steroids, octreotride, -albumin x 3 days -O2 support as needed -Creatinine stable- plateaued at 2.9-3.0- Hepatorenal syndrome unlikely- off midodrine octreotride drip -continue steroids -NPO after midnight for EGD tomorrow given anemia acute blood loss and +FOBT -Psychiatry consulted- recs appreciated 4) Acute on chronic renal failure Hyperkalemia -Renal consult- recs appreciated -Spirinolactone discontinued -Adkins inserted -gentle diureses -medical treatment of hyperkalemia 5) Acute on chronic systolic heart failure -Cardiology consulted- recs appreciated -continue beta dominguez, nitrate, hydralazine -avoid midodrine 6) Pancytopenia -Hematology consulted- recs appreciated -likely secondary to cirrhosis -continue to monitor 7) UTI -Enterococcus faecalis- on ampicillin DVT Prophylaxis: scd's Code status: full Hospital Classification declaration: Based on this initial evaluation, and depending on the patient's clinical course, I anticipate that this patient will require hospitalization for 2-3 days. Disposition: Once the patient is stable to leave the hospital, I anticipate the patient will likely be discharged to the following environment: Home I spent 45 minutes on this patient's case, and 25 minutes was dedicated to counseling and/or care coordination. Time of note may not reflect time of encounter. Subjective Date patient seen: Nov 29, 2017 Time patient seen: 11:55 ROS Limited/Unobtainable: No Constitutional: Reports: malaise, weakness HEENT: Reports: no symptoms Cardiovascular: Reports: no symptoms Respiratory: Reports: SOB with excertion Gastrointestinal/Abdominal: Reports: abdomen distended Genitourinary: Reports: no symptoms Neurologic/Psychiatric: Reports: no symptoms Endocrine: Reports: no symptoms Hematologic/Lymphatic: Reports: no symptoms Allergies: Coded Allergies: No Known Allergies (Unverified , 08/30/17) All Systems: reviewed and negative except above Subjective Events of overnight and weekend noted Chart reviewed by me Patient c/o fatigue, malaise Feels abdomen getting more distended Objective Last 24 Hour Vital Signs Date Time Temp Pulse Resp B/P (MAP) Pulse Ox O2 Delivery O2 Flow Rate FiO2 11/29/17 13:19 128/80 11/29/17 12:00 97.1 65 18 128/80 (96) 100 97.1 11/29/17 09:16 132/74 11/29/17 09:15 80 132/74 11/29/17 09:00 Room Air Room Air 11/29/17 08:00 75 11/29/17 08:00 97.0 91 18 132/71 (91) 99 97.0 11/29/17 05:36 133/79 11/29/17 04:00 71 11/29/17 04:00 97.3 80 17 133/79 (97) 97 97.3 11/29/17 00:00 67 11/29/17 00:00 97.0 72 19 129/74 (92) 98 97.0 11/28/17 21:54 120/70 11/28/17 21:54 69 120/70 11/28/17 21:00 Room Air Room Air 11/28/17 20:00 97.0 69 20 120/70 (87) 97 97.0 11/28/17 20:00 69 11/28/17 16:00 96.8 73 20 132/76 (94) 97 96.8 11/28/17 16:00 75 Intake and Output 11/28/17 11/29/17 19:00 07:00 Intake Total 700 ml Output Total 300 ml 600 ml Balance 400 ml -600 ml Intake Oral 700 ml Output Urine Total 300 ml 600 ml Laboratory Tests 11/29/17 09:00: White Blood Count 3.4L, Red Blood Count 3.61L, Hemoglobin 10.3L, Hematocrit 33.6L, Mean Corpuscular Volume 93, Mean Corpuscular Hemoglobin 28.5, Mean Corpuscular Hemoglobin Concent 30.6L, Red Cell Distribution Width 19.3H, Platelet Count 87L, Mean Platelet Volume 11.5H, Neutrophils (%) (Auto) , Lymphocytes (%) (Auto) , Monocytes (%) (Auto) , Eosinophils (%) (Auto) , Basophils (%) (Auto) , Differential Total Cells Counted 100, Neutrophils % ( Manual) 77H, Lymphocytes % (Manual) 13L, Monocytes % (Manual) 10, Eosinophils % (Manual) 0, Basophils % (Manual) 0, Band Neutrophils 0, Platelet Estimate DecreasedL, Platelet Morphology Normal, Hypochromasia 1+, Poikilocytosis 2+, Anisocytosis 2+, [place] Cells 1+, Acanthocytes 2+, Prothrombin Time 17.3H, Prothromb Time International Ratio 1.7H, Sodium Level 134L, Potassium Level 5.7H , Chloride Level 103, Carbon Dioxide Level 21, Anion Gap 10, Blood Urea Nitrogen 82H, Creatinine 2.9H, Estimat Glomerular Filtration Rate , Glucose Level 120H, Calcium Level 8.8, C-Reactive Protein, Quantitative 0.9 Height (Feet): 5 Height (Inches): 7.00 Weight (Pounds): 176 General Appearance: no apparent distress, lethargic, thin EENT: PERRL/EOMI, normal ENT inspection, TMs normal Neck: non-tender, supple Cardiovascular: normal peripheral pulses, normal rate, irregularly irregular Respiratory/Chest: chest wall non-tender, decreased breath sounds Abdomen: normal bowel sounds, distended Pelvis: normal external exam Extremities: normal range of motion, no calf tenderness Edema: moderate edema Neurologic: alert Skin: normal pigmentation, warm/dry Lymphatic: normal anterior cervical (L), normal anterior cervical (R) Marshall Martinez MD Nov 29, 2017 13:47
[2017-11-29 15:55] VITALS: BP 126/79
[2017-11-29 20:00] VITALS: BP 131/73
[2017-11-29] MEDS ORDERED: Epogen (for non ESRD use) SUBQ SCH (21:00)
[2017-11-30] VITALS (10 sets, daily range): BP systolic 96–142; BP diastolic 55–85
[2017-11-30] MEDS: HydrALAZINE 25mg tab NG SCH ×3 (05:31→22:13)
[2017-11-30 06:02] LABS: HEMATOCRIT 31.5 % (42.0-52.0); HEMOGLOBIN 9.6 G/DL (14.2-18.0); MEAN CORPUSCULAR VOLUME 91 FL (80-99); PLATELET COUNT 100 K/UL (150-450); RED BLOOD COUNT 3.44 M/UL (4.70-6.10); RED CELL DISTRIBUTION WIDTH 19.7 % (11.6-14.8); WHITE BLOOD COUNT 3.3 K/UL (4.8-10.8)
[2017-11-30 06:16] LABS: ALANINE AMINOTRANSFERASE 149 U/L (12-78); ALBUMIN 2.5 G/DL (3.4-5.0); ALBUMIN/GLOBULIN RATIO 0.6 (1.0-2.7); ALKALINE PHOSPHATASE 136 U/L (46-116); ANION GAP 10 mmol/L (5-15); ASPARTATE AMINO TRANSFERASE 58 U/L (15-37); BLOOD UREA NITROGEN 84 mg/dL (7-18); CALCIUM 8.6 MG/DL (8.5-10.1); CARBON DIOXIDE 21 MMOL/L (21-32); CHLORIDE 104 MMOL/L (98-107); CREATININE 2.9 MG/DL (0.55-1.30); GAMMA GLUTAMYL TRANSPEPTIDASE 235 U/L (5-85); PHOSPHORUS 5.9 MG/DL (2.5-4.9); POTASSIUM 4.6 MMOL/L (3.5-5.1); SODIUM 135 MMOL/L (136-145)
--- NOTE | 2017-11-30 06:30 | General Progress Note ---
Assessment/Plan Assessment/Plan #. 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 Hepatitis and human immunodeficiency virus are negative. Counts in line with historical values over time, continues to persist --> Ultrasound of the abdomen from last admission showed cirrhosis/HSM --> Tumor markers reviewed and are negative from before. --> Likely leukopenia secondary to splenomegaly. Give neupogen if ANC <1000 --> s/p paracentesis, 11/22: yielding 5.9L of fluid. await cytology though in prior was negative --> Current WBC of 2.9, low side --> as per gi, rifaxamin, lactulose as needed, adjust to bm, steriods as well 2. Anemia due to underlying chronic disease, appears to be stable. --> anemia w/u if hgb worsens, consider transfusion prn --> Current Hgb of 8.6, stable. 3. Coagulopathy, likely related to underlying cirrhosis of the liver. --> VitK prn basis, given by GI 4. Hyperkalemia, given Kayexalate, currently improved. 5. Biventricular failure with severe pulmonary hypertension. The patient has seen by Cardiology. 6. Ascites, --> S/P paracentesis, yielding 5.9 liters of fluid, 11/26 The time the note was entered does not necessarily correspond to the time the patient was seen. Subjective Constitutional: Denies: no symptoms, chills, diaphoresis, fever, malaise, weakness, other HEENT: Denies: no symptoms, eye pain, blurred vision, tearing, double vision, ear pain, ear discharge, nose pain, nose congestion, throat pain, throat swelling, mouth pain, mouth swelling, other Cardiovascular: Denies: no symptoms, chest pain, edema, irregular heart rate, lightheadedness, palpitations, syncope, other Respiratory: Denies: no symptoms, cough, orthopnea, shortness of breath, SOB with excertion, SOB at rest, sputum, stridor, wheezing, other Gastrointestinal/Abdominal: Denies: no symptoms, abdomen distended, abdominal pain, black stools, tarry stools, blood in stool, constipated, diarrhea, difficulty swallowing, nausea, poor appetite, poor fluid intake, rectal bleeding , vomiting, other Genitourinary: Denies: no symptoms, burning, discharge, frequency, flank pain, hematuria, incontinence, pain, urgency, other Neurologic/Psychiatric: Denies: no symptoms, anxiety, depressed, emotional problems, headache, numbness, paresthesia, pre-existing deficit, seizure, tingling, tremors, weakness, other Endocrine: Denies: no symptoms, excessive sweating, flushing, intolerance to cold, intolerance to heat, increased hunger, increased thirst, increased urine, unexplained weight gain, unexplained weight loss, other Hematologic/Lymphatic: Reports: no symptoms Allergies: Coded Allergies: No Known Allergies (Unverified , 08/30/17) Subjective Pt awake and alert. No acute events. DC planning. am EGD recommended today Objective Last 24 Hour Vital Signs Date Time Temp Pulse Resp B/P (MAP) Pulse Ox O2 Delivery O2 Flow Rate FiO2 11/30/17 05:31 142/85 11/30/17 04:00 97.0 76 20 142/85 (104) 96 97.0 11/30/17 04:00 71 11/30/17 00:00 65 11/30/17 00:00 97.0 71 20 132/79 (96) 97 97.0 11/29/17 21:22 61 131/73 11/29/17 21:21 131/73 11/29/17 21:00 Room Air Room Air 11/29/17 20:00 97.0 74 20 131/73 (92) 95 97.0 11/29/17 20:00 61 11/29/17 16:00 63 11/29/17 15:55 97.0 68 18 126/79 (95) 95 97.0 11/29/17 13:19 128/80 11/29/17 12:00 97.1 65 18 128/80 (96) 100 97.1 11/29/17 12:00 60 11/29/17 09:16 132/74 11/29/17 09:15 80 132/74 11/29/17 09:00 Room Air Room Air 11/29/17 08:00 75 11/29/17 08:00 97.0 91 18 132/71 (91) 99 97.0 Intake and Output 11/29/17 11/30/17 19:00 07:00 Intake Total 480 ml Output Total 800 ml Balance -320 ml Intake Oral 480 ml Output Urine Total 800 ml Laboratory Tests 11/29/17 09:00: White Blood Count 3.4L, Red Blood Count 3.61L, Hemoglobin 10.3L, Hematocrit 33.6L, Mean Corpuscular Volume 93, Mean Corpuscular Hemoglobin 28.5, Mean Corpuscular Hemoglobin Concent 30.6L, Red Cell Distribution Width 19.3H, Platelet Count 87L, Mean Platelet Volume 11.5H, Neutrophils (%) (Auto) , Lymphocytes (%) (Auto) , Monocytes (%) (Auto) , Eosinophils (%) (Auto) , Basophils (%) (Auto) , Differential Total Cells Counted 100, Neutrophils % ( Manual) 77H, Lymphocytes % (Manual) 13L, Monocytes % (Manual) 10, Eosinophils % (Manual) 0, Basophils % (Manual) 0, Band Neutrophils 0, Platelet Estimate DecreasedL, Platelet Morphology Normal, Hypochromasia 1+, Poikilocytosis 2+, Anisocytosis 2+, Eyad Cells 1+, Acanthocytes 2+, Prothrombin Time 17.3H, Prothromb Time International Ratio 1.7H, Sodium Level 134L, Potassium Level 5.7H , Chloride Level 103, Carbon Dioxide Level 21, Anion Gap 10, Blood Urea Nitrogen 82H, Creatinine 2.9H, Estimat Glomerular Filtration Rate , Glucose Level 120H, Calcium Level 8.8, C-Reactive Protein, Quantitative 0.9 11/30/17 05:35: White Blood Count 3.3L, Red Blood Count 3.44L, Hemoglobin 9.6L, Hematocrit 31.5L , Mean Corpuscular Volume 91, Mean Corpuscular Hemoglobin 27.8, Mean Corpuscular Hemoglobin Concent 30.4L, Red Cell Distribution Width 19.7H, Platelet Count 100L, Mean Platelet Volume 10.4H, Neutrophils (%) (Auto) , Lymphocytes (%) (Auto) , Monocytes (%) (Auto) , Eosinophils (%) (Auto) , Basophils (%) (Auto) , Neutrophils % (Manual) [Pending], Lymphocytes % (Manual) [Pending], Platelet Estimate [Pending], Platelet Morphology [Pending], Sodium Level [Pending], Potassium Level [Pending], Chloride Level [Pending], Carbon Dioxide Level [Pending], Blood Urea Nitrogen [Pending], Creatinine [Pending], Estimat Glomerular Filtration Rate [Pending], Glucose Level [Pending], Calcium Level [Pending], Uric Acid [Pending], Phosphorus Level [Pending], Magnesium Level [Pending], Total Bilirubin [Pending], Gamma Glutamyl Transpeptidase [ Pending], Aspartate Amino Transf (AST/SGOT) [Pending], Alanine Aminotransferase (ALT/SGPT) [Pending], Alkaline Phosphatase [Pending], Pro-B-Type Natriuretic Peptide [Pending], Total Protein [Pending], Albumin [Pending], Globulin [Pending ], Digoxin Level [Pending] Height (Feet): 5 Height (Inches): 5.00 Weight (Pounds): 176 General Appearance: no apparent distress EENT: normal ENT inspection Neck: supple Cardiovascular: normal rate Respiratory/Chest: chest wall non-tender Abdomen: non tender Extremities: non-tender Edema: 1+ Leg (L), 1+ Leg (R) Edema: mild edema Neurologic: alert Christiano Hoffmann MD Nov 30, 2017 06:30
[2017-11-30] MEDS ORDERED: Midazolam 2mg/2ml Inj ONE (07:00)
[2017-11-30] MEDS ORDERED: fentaNYL 100 mcg/2 mL IV ONE (07:00)
[2017-11-30] MEDS: Imdur 30mg tab ORAL SCH (08:41)
--- NOTE | 2017-11-30 10:00 | Pre-Procedure Note/Attestation ---
Pre-Procedure Note/Attestation Complete Prior to Procedure Planned Procedure: not applicable Procedure Narrative: egd Indications for Procedure Pre-Operative Diagnosis: gib Attestation I attest that I discussed the nature of the procedure; its benefits; risks and complications; and alternatives (and the risks and benefits of such alternatives ), prior to the procedure, with the patient (or the patient's legal union contract representative). I attest that, if there was a reasonable possibility of needing a blood transfusion, the patient (or the patient's legal union contract representative) was given the [facility] standardized written summary, pursuant to the Edmundo Jenny Blood Safety Act ([place] Health and Safety Code # 1645, as amended). I attest that I re-evaluated the patient just prior to the surgery and that there has been no change in the patient's H&P, except as documented below: Robin Choudhary MD Nov 30, 2017 10:00
--- NOTE | 2017-11-30 11:46 | Cardiology Progress Note ---
Assessment/Plan Status: stable Assessment/Plan Assessment: 1) Cirrhosis (2) Anemia (3) Iron deficiency (4) Systolic and diastolic CHF, acute on chronic (5) Atrial fibrillation (6) Hypoglycemia Plan: Hold aldactone in setting of RAMONE and hyperkalemia Continue coreg for heart failure and afib - increase dose as tolerated Hydralazine/nitro for preload/afterload reduction No indication for cardioversion Stopped midodrine as this will increase afterload in a failing heart and worsen cardiac output, his SVR is already at a maximum Paracentesis + Albumin to support BP EGD to evaluate for varicies when stable - plan for THURSDAY 11/30 Steroids started per GI Mild diuresis for pulmonary vascular congestion. Defer ICD due to medication non compliance and prognosis <1 year Continue telemetry to evaluate for arrhythmias Patient did not qualify for life vest on previous admission SNF dispo planning Subjective Cardiovascular: Reports: no symptoms Respiratory: Reports: no symptoms Gastrointestinal/Abdominal: Reports: no symptoms Genitourinary: Reports: no symptoms Subjective No acute events, vitals stable, H/H dropping Vitals stable, NGT out. For EGD today Awaiting placement to SNF, no complaints Objective Last 24 Hour Vital Signs Date Time Temp Pulse Resp B/P (MAP) Pulse Ox O2 Delivery O2 Flow Rate FiO2 11/30/17 09:00 Room Air Room Air 11/30/17 09:00 67 134/76 11/30/17 08:41 134/76 11/30/17 08:00 97.0 67 20 134/76 (95) 100 97.0 11/30/17 05:31 142/85 11/30/17 04:00 97.0 76 20 142/85 (104) 96 97.0 11/30/17 04:00 71 11/30/17 00:00 65 11/30/17 00:00 97.0 71 20 132/79 (96) 97 97.0 11/29/17 21:22 61 131/73 11/29/17 21:21 131/73 11/29/17 21:00 Room Air Room Air 11/29/17 20:00 97.0 74 20 131/73 (92) 95 97.0 11/29/17 20:00 61 11/29/17 16:00 63 11/29/17 15:55 97.0 68 18 126/79 (95) 95 97.0 11/29/17 13:19 128/80 11/29/17 12:00 97.1 65 18 128/80 (96) 100 97.1 11/29/17 12:00 60 General Appearance: no apparent distress, alert EENT: PERRL/EOMI, normal ENT inspection Neck: non-tender, normal alignment, supple, normal inspection Rhythm: NSR Cardiovascular: normal peripheral pulses, normal rate, regular rhythm Respiratory/Chest: chest wall non-tender, lungs clear Abdomen: normal bowel sounds, non tender Extremities: normal range of motion, non-tender Neurologic: sheriffs officer II-XII grossly normal Intake and Output 11/29/17 11/30/17 19:00 07:00 Intake Total 480 ml Output Total 800 ml 600 ml Balance -320 ml -600 ml Intake Oral 480 ml Output Urine Total 800 ml 600 ml Laboratory Tests Test 11/30/17 05:35 White Blood Count 3.3 K/UL (4.8-10.8) L Red Blood Count 3.44 M/UL (4.70-6.10) L Hemoglobin 9.6 G/DL (14.2-18.0) L Hematocrit 31.5 % (42.0-52.0) L Mean Corpuscular Volume 91 FL (80-99) Mean Corpuscular Hemoglobin 27.8 PG (27.0-31.0) Mean Corpuscular Hemoglobin Concent 30.4 G/DL (32.0-36.0) L Red Cell Distribution Width 19.7 % (11.6-14.8) H Platelet Count 100 K/UL (150-450) L Mean Platelet Volume 10.4 FL (6.5-10.1) H Neutrophils (%) (Auto) % (45.0-75.0) Lymphocytes (%) (Auto) % (20.0-45.0) Monocytes (%) (Auto) % (1.0-10.0) Eosinophils (%) (Auto) % (0.0-3.0) Basophils (%) (Auto) % (0.0-2.0) Differential Total Cells Counted 100 Neutrophils % (Manual) 82 % (45-75) H Lymphocytes % (Manual) 10 % (20-45) L Monocytes % (Manual) 5 % (1-10) Eosinophils % (Manual) 0 % (0-3) Basophils % (Manual) 0 % (0-2) Band Neutrophils 3 % (0-8) Nucleated Red Blood Cells 4 /100 WBC Platelet Estimate Decreased L Platelet Morphology Normal Hypochromasia 2+ Poikilocytosis 2+ Anisocytosis 2+ [place] Cells 1+ Acanthocytes 1+ Schistocytes 1+ Sodium Level 135 MMOL/L (136-145) L Potassium Level 4.6 MMOL/L (3.5-5.1) Chloride Level 104 MMOL/L (98-107) Carbon Dioxide Level 21 MMOL/L (21-32) Anion Gap 10 mmol/L (5-15) Blood Urea Nitrogen 84 mg/dL (7-18) H Creatinine 2.9 MG/DL (0.55-1.30) H Estimat Glomerular Filtration Rate mL/min (>60) Glucose Level 116 MG/DL (74-106) H Uric Acid 8.0 MG/DL (2.6-7.2) H Calcium Level 8.6 MG/DL (8.5-10.1) Phosphorus Level 5.9 MG/DL (2.5-4.9) H Magnesium Level 1.9 MG/DL (1.8-2.4) Total Bilirubin 1.0 MG/DL (0.2-1.0) Gamma Glutamyl Transpeptidase 235 U/L (5-85) H Aspartate Amino Transf (AST/SGOT) 58 U/L (15-37) H Alanine Aminotransferase (ALT/SGPT) 149 U/L (12-78) H Alkaline Phosphatase 136 U/L (46-116) H Pro-B-Type Natriuretic Peptide > 84689 pg/mL (0-125) H Total Protein 6.6 G/DL (6.4-8.2) Albumin 2.5 G/DL (3.4-5.0) L Globulin 4.1 g/dL Albumin/Globulin Ratio 0.6 (1.0-2.7) L Digoxin Level 1.6 NG/ML (0.5-2.0) Kieran Cedillo MD Nov 30, 2017 11:46
--- NOTE | 2017-11-30 12:12 | Nephrology Progress Note ---
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 (3) Anemia (4) 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 hypertension (5) Cirrhosis and encephalopathy (6) Atrial fibrillation (7) Hypoglycemia (8) elevated liver enzymes) Plan on prednisone trial per GI yates- off midodrine- Digoxin- Nitrates- Lactulose as needed adjust meds for bp Optimize cardiac condition gentle diuresis correct electrolyte imbalances one dose of Kayexelate 11/29 Subjective ROS Limited/Unobtainable: No Constitutional: Reports: weakness Objective Objective Last 24 Hour Vital Signs Date Time Temp Pulse Resp B/P (MAP) Pulse Ox O2 Delivery O2 Flow Rate FiO2 11/30/17 09:00 Room Air Room Air 11/30/17 09:00 67 134/76 11/30/17 08:41 134/76 11/30/17 08:00 97.0 67 20 134/76 (95) 100 97.0 11/30/17 05:31 142/85 11/30/17 04:00 97.0 76 20 142/85 (104) 96 97.0 11/30/17 04:00 71 11/30/17 00:00 65 11/30/17 00:00 97.0 71 20 132/79 (96) 97 97.0 11/29/17 21:22 61 131/73 11/29/17 21:21 131/73 11/29/17 21:00 Room Air Room Air 11/29/17 20:00 97.0 74 20 131/73 (92) 95 97.0 11/29/17 20:00 61 11/29/17 16:00 63 11/29/17 15:55 97.0 68 18 126/79 (95) 95 97.0 11/29/17 13:19 128/80 Intake and Output 11/29/17 11/30/17 19:00 07:00 Intake Total 480 ml Output Total 800 ml 600 ml Balance -320 ml -600 ml Intake Oral 480 ml Output Urine Total 800 ml 600 ml Current Medications Medications (Trade) Dose Ordered Sig/Saul Route PRN Reason Start Time Stop Time Status Last Admin Dose Admin Allopurinol (Allopurinol) 300 mg DAILY NG 11/25/17 09:00 12/23/17 10:29 11/30/17 08:41 Ampicillin (Ampicillin) 500 mg Q12HR ORAL 11/26/17 21:00 12/03/17 20:59 11/30/17 08:41 Bisacodyl (Dulcolax) 10 mg DAILYPRN PRN RECTAL Constipation 11/21/17 07:15 12/21/17 07:14 Carvedilol (Coreg) 3.125 mg EVERY 12 HOURS ORAL 11/25/17 21:00 12/25/17 20:59 11/29/17 21:22 Dextrose (Dextrose 50%) 25 ml STAT PRN IV Hypoglycemia 11/21/17 07:15 12/21/17 07:14 Dextrose (Dextrose 50%) 50 ml STAT PRN IV Hypoglycemia 11/21/17 07:15 12/21/17 07:14 11/22/17 09:42 Epoetin [place] (Procrit (for non ESRD use)) 7,500 units WED-WED-WED SUBQ 11/29/17 21:00 12/29/17 20:59 11/29/17 21:21 Hydralazine HCl (Apresoline) 25 mg Q8HR NG 11/26/17 14:00 12/22/17 11:59 11/30/17 05:31 Isosorbide Mononitrate (Imdur) 60 mg DAILY ORAL 11/26/17 09:00 12/23/17 08:59 11/30/17 08:41 Pantoprazole (Protonix) 40 mg EVERY 12 HOURS ORAL 11/28/17 21:00 12/28/17 20:59 11/30/17 08:41 Polyethylene Glycol (Miralax) 17 gm DAILYPRN PRN ORAL Constipation 11/21/17 07:15 12/21/17 07:14 11/21/17 13:25 Prednisone (predniSONE) 40 mg DAILY ORAL 11/24/17 09:00 12/24/17 08:59 11/30/17 08:41 Rifaximin (Xifaxan) 550 mg EVERY 12 HOURS ORAL 11/23/17 21:00 12/24/17 20:59 11/30/17 08:41 Sevelamer Carbonate (Renvela) 800 mg THREE TIMES A DAY ORAL 11/28/17 13:00 12/28/17 12:59 11/30/17 08:41 Laboratory Tests 11/30/17 05:35: White Blood Count 3.3L, Red Blood Count 3.44L, Hemoglobin 9.6L, Hematocrit 31.5L , Mean Corpuscular Volume 91, Mean Corpuscular Hemoglobin 27.8, Mean Corpuscular Hemoglobin Concent 30.4L, Red Cell Distribution Width 19.7H, Platelet Count 100L, Mean Platelet Volume 10.4H, Neutrophils (%) (Auto) , Lymphocytes (%) (Auto) , Monocytes (%) (Auto) , Eosinophils (%) (Auto) , Basophils (%) (Auto) , Differential Total Cells Counted 100, Neutrophils % ( Manual) 82H, Lymphocytes % (Manual) 10L, Monocytes % (Manual) 5, Eosinophils % ( Manual) 0, Basophils % (Manual) 0, Band Neutrophils 3, Nucleated Red Blood Cells 4, Platelet Estimate DecreasedL, Platelet Morphology Normal, Hypochromasia 2+, Poikilocytosis 2+, Anisocytosis 2+, [place]ad Cells 1+, Acanthocytes 1+, Schistocytes 1+, Sodium Level 135L, Potassium Level 4.6, Chloride Level 104, Carbon Dioxide Level 21, Anion Gap 10, Blood Urea Nitrogen 84H, Creatinine 2.9H, Estimat Glomerular Filtration Rate , Glucose Level 116H, Uric Acid 8.0H, Calcium Level 8.6, Phosphorus Level 5.9H, Magnesium Level 1.9, Total Bilirubin 1.0, Gamma Glutamyl Transpeptidase 235H, Aspartate Amino Transf (AST/SGOT) 58H, Alanine Aminotransferase (ALT/SGPT) 149H, Alkaline Phosphatase 136H, Pro-B-Type Natriuretic Peptide > 47010K, Total Protein 6.6, Albumin 2.5L, Globulin 4.1, Albumin/Globulin Ratio 0.6L, Digoxin Level 1.6 Height (Feet): 5 Height (Inches): 5.00 Weight (Pounds): 178 General Appearance: no apparent distress Cardiovascular: normal rate Respiratory/Chest: decreased breath sounds Abdomen: distended Objective no change Noel Kim MD Nov 30, 2017 12:12
[2017-11-30] MEDS ORDERED: NS 500ML IVPB ONE (13:08)
--- NOTE | 2017-11-30 13:19 | Anethesia Preoperative Eval ---
Anesthesia Pre-op PMH/ROS General Date of Evaluation: Nov 30, 2017 Time of Evaluation: 13:05 Anesthesiologist: Kayley ASA Score: ASA 4 Mallampati Score Class I : Soft palate, uvula, fauces, pillars visible Class II: Soft palate, uvula, fauces visible Class III: Soft palate, base of uvula visible Class IV: Only hard plate visible Mallampati Classification: Class III Surgeon: Kenrick Diagnosis: GI bleed Surgical Procedure: EGD Anesthesia History: none Family History: no anesthesia problems Allergies: Coded Allergies: No Known Allergies (Unverified , 08/30/17) Medications: see eMAR Past Medical History Cardiovascular: Reports: HTN, arrhythmia - A Fib with RVR, other - chf; Denies: CAD, FL, valve dz Pulmonary: Reports: other; Denies: asthma, COPD, FREDIS Gastrointestinal/Genitourinary: Reports: GERD, CRI - High Cr.; Denies: ESRD, other Neurologic/Psychiatric: Reports: dementia - mild, depression/anxiety; Denies: CVA, TIA, other Endocrine: Reports: hypothyroidism; Denies: DM, steroids, other HEENT: Denies: cataract (L), cataract (R), glaucoma, JENA (L), JENA (R), other Hematology/Immune: Reports: anemia; Denies: DVT, bleeding disorder, other Musculoskeletal/Integumentary: Reports: DJD; Denies: OA, RA, DDD, edema, other Other: other - malnourished PMH Narrative: as above PSxH Narrative: see H&P Anesthesia Pre-op Phys. Exam Physician Exam Last Vital Signs Date Time Temp Pulse Resp B/P (MAP) Pulse Ox O2 Delivery O2 Flow Rate FiO2 11/30/17 12:00 97.2 83 20 131/79 (96) 95 97.2 11/30/17 09:00 Room Air Room Air 11/25/17 21:00 2.0 2.0 Constitutional: NAD Neurologic: other - unable to obtaine Cardiovascular: other - IRR Respiratory: CTA Gastrointestinal: S/NT/ND Airway Exam Mallampati Score: Class III MO: limited Neck: stiff ROM: limited Teeth: missing Dentures: no upper, no lower Anesthesia Pre-op A/P Labs Hematology Test 11/30/17 05:35 White Blood Count 3.3 K/UL (4.8-10.8) L Red Blood Count 3.44 M/UL (4.70-6.10) L Hemoglobin 9.6 G/DL (14.2-18.0) L Hematocrit 31.5 % (42.0-52.0) L Mean Corpuscular Volume 91 FL (80-99) Mean Corpuscular Hemoglobin 27.8 PG (27.0-31.0) Mean Corpuscular Hemoglobin Concent 30.4 G/DL (32.0-36.0) L Red Cell Distribution Width 19.7 % (11.6-14.8) H Platelet Count 100 K/UL (150-450) L Mean Platelet Volume 10.4 FL (6.5-10.1) H Neutrophils (%) (Auto) % (45.0-75.0) Lymphocytes (%) (Auto) % (20.0-45.0) Monocytes (%) (Auto) % (1.0-10.0) Eosinophils (%) (Auto) % (0.0-3.0) Basophils (%) (Auto) % (0.0-2.0) Differential Total Cells Counted 100 Neutrophils % (Manual) 82 % (45-75) H Lymphocytes % (Manual) 10 % (20-45) L Monocytes % (Manual) 5 % (1-10) Eosinophils % (Manual) 0 % (0-3) Basophils % (Manual) 0 % (0-2) Band Neutrophils 3 % (0-8) Nucleated Red Blood Cells 4 /100 WBC Platelet Estimate Decreased L Platelet Morphology Normal Hypochromasia 2+ Poikilocytosis 2+ Anisocytosis 2+ [place] Cells 1+ Acanthocytes 1+ Schistocytes 1+ Chemistry Test 11/30/17 05:35 Sodium Level 135 MMOL/L (136-145) L Potassium Level 4.6 MMOL/L (3.5-5.1) Chloride Level 104 MMOL/L (98-107) Carbon Dioxide Level 21 MMOL/L (21-32) Anion Gap 10 mmol/L (5-15) Blood Urea Nitrogen 84 mg/dL (7-18) H Creatinine 2.9 MG/DL (0.55-1.30) H Estimat Glomerular Filtration Rate mL/min (>60) Glucose Level 116 MG/DL (74-106) H Uric Acid 8.0 MG/DL (2.6-7.2) H Calcium Level 8.6 MG/DL (8.5-10.1) Phosphorus Level 5.9 MG/DL (2.5-4.9) H Magnesium Level 1.9 MG/DL (1.8-2.4) Total Bilirubin 1.0 MG/DL (0.2-1.0) Gamma Glutamyl Transpeptidase 235 U/L (5-85) H Aspartate Amino Transf (AST/SGOT) 58 U/L (15-37) H Alanine Aminotransferase (ALT/SGPT) 149 U/L (12-78) H Alkaline Phosphatase 136 U/L (46-116) H Pro-B-Type Natriuretic Peptide > 84127 pg/mL (0-125) H Total Protein 6.6 G/DL (6.4-8.2) Albumin 2.5 G/DL (3.4-5.0) L Globulin 4.1 g/dL Albumin/Globulin Ratio 0.6 (1.0-2.7) L Risk Assessment & Plan Assessment: ASA 4 Plan: MAC Status Change Before Surgery: No Pre-Antibiotics Drug: None Abhinav Zaldivar MD Nov 30, 2017 13:19
--- NOTE | 2017-11-30 13:23 | Endoscopy Procedure Note ---
Endoscopy Procedure Note General Indication for Procedure: gib Procedures Performed: EGD Operative Findings/Diagnosis: amy esophagitis Specimen: yes Pt Tolerated Procedure Well: Yes Estimated Blood Loss: none Anesthesia Anesthesiologist: junie Anesthesia: MAC Inserted Devices Implant(s) used?: No GI Core Measures 50 yrs or older w/o bx or poly: Not Applicable 10yrs. F/U not recommended: Not Applicable Robin Choudhary MD Nov 30, 2017 13:23
--- NOTE | 2017-11-30 13:47 | Immediate Post-Op Evaluation ---
Immediate Post-Op Evalulation Immediate Post-Op Evalulation Procedure: EGD with Bx. Date of Evaluation: Nov 30, 2017 Time of Evaluation: 13:46 IV Fluids: 250 Blood Products: none Estimated Blood Loss: min Urinary Output: none Blood Pressure Systolic: 98 Blood Pressure Diastolic: 56 Pulse Rate: 72 Respiratory Rate: 20 O2 Sat by Pulse Oximetry: 99 Temperature (Fahrenheit): 97.6 Pain Score (1-10): 1 Nausea: No Vomiting: No Complications none Patient Status: reacts, patent, none Hydration Status: adequate Abhinav Zaldivar MD Nov 30, 2017 13:47
--- NOTE | 2017-11-30 13:48 | 48 Hour Post Anesthesia Eval ---
Post Anesthesia Evaluation Procedure: EGD with Bx. Date of Evaluation: Nov 30, 2017 Time of Evaluation: 14:30 Blood Pressure Systolic: 102 0: 56 Pulse Rate: 72 Respiratory Rate: 20 Temperature (Fahrenheit): 97.5 O2 Sat by Pulse Oximetry: 98 Airway: patent Nausea: No Vomiting: No Pain Intensity: 1 Cardiopulmonary Status: stable Mental Status/LOC: patient returned to baseline Follow-up Care/Observations: n/a Post-Anesthesia Complications: none Follow-up care needed: N/A Abhinav Zaldivar MD Nov 30, 2017 13:48
--- NOTE | 2017-11-30 14:27 | General Progress Note ---
Assessment/Plan Assessment/Plan 1) Acute encephalopathy-resolved 2) Acute hypoxemic respiratory failure- resolved 3) Hypoglycemia- improved 4) Decompensated cirrhosis- improving -s/p large volume paracentesis 11/22 with 5.7 L -GI consulted for decompensated cirrhosis management- recs appreciated -intial recs: lactulose, rifaximin, steroids, octreotride, -albumin x 3 days -O2 support as needed -Creatinine stable- plateaued at 2.9-3.0- Hepatorenal syndrome unlikely- off midodrine octreotride drip -continue steroids -NPO after midnight for EGD tomorrow given anemia acute blood loss and +FOBT -Psychiatry consulted- recs appreciated 4) Acute on chronic renal failure Hyperkalemia -Renal consult- recs appreciated -Spirinolactone discontinued -Adkins inserted -gentle diureses -medical treatment of hyperkalemia 5) Acute on chronic systolic heart failure -Cardiology consulted- recs appreciated -continue beta dominguez, nitrate, hydralazine -avoid midodrine 6) Pancytopenia -Hematology consulted- recs appreciated -likely secondary to cirrhosis -continue to monitor 7) UTI -Enterococcus faecalis- on ampicillin DVT Prophylaxis: scd's Code status: full Hospital Classification declaration: Based on this initial evaluation, and depending on the patient's clinical course, I anticipate that this patient will require hospitalization for 2-3 days. Disposition: Once the patient is stable to leave the hospital, I anticipate the patient will likely be discharged to the following environment: Home I spent 45 minutes on this patient's case, and 25 minutes was dedicated to counseling and/or care coordination. Time of note may not reflect time of encounter. Subjective Allergies: Coded Allergies: No Known Allergies (Unverified , 08/30/17) Subjective Events of overnight and weekend noted Chart reviewed by me Patient c/o fatigue, malaise Feels abdomen getting more distended Objective Last 24 Hour Vital Signs Date Time Temp Pulse Resp B/P (MAP) Pulse Ox O2 Delivery O2 Flow Rate FiO2 11/30/17 13:51 65 16 110/64 100 Nasal Cannula 3 11/30/17 13:48 207.5 72 20 98 11/30/17 13:47 207.7 72 20 99 11/30/17 13:36 62 16 96/61 100 Nasal Cannula 3 11/30/17 13:31 67 16 99/59 100 Nasal Cannula 3 11/30/17 13:26 97.4 69 16 100/61 100 Nasal Cannula 3 97.4 11/30/17 12:00 97.2 83 20 131/79 (96) 95 97.2 11/30/17 09:00 Room Air Room Air 11/30/17 09:00 67 134/76 11/30/17 08:41 134/76 11/30/17 08:00 97.0 67 20 134/76 (95) 100 97.0 11/30/17 05:31 142/85 11/30/17 04:00 97.0 76 20 142/85 (104) 96 97.0 11/30/17 04:00 71 11/30/17 00:00 65 11/30/17 00:00 97.0 71 20 132/79 (96) 97 97.0 11/29/17 21:22 61 131/73 11/29/17 21:21 131/73 11/29/17 21:00 Room Air Room Air 11/29/17 20:00 97.0 74 20 131/73 (92) 95 97.0 11/29/17 20:00 61 11/29/17 16:00 63 11/29/17 15:55 97.0 68 18 126/79 (95) 95 97.0 Intake and Output 11/29/17 11/30/17 19:00 07:00 Intake Total 480 ml Output Total 800 ml 600 ml Balance -320 ml -600 ml Intake Oral 480 ml Output Urine Total 800 ml 600 ml Laboratory Tests 11/30/17 05:35: White Blood Count 3.3L, Red Blood Count 3.44L, Hemoglobin 9.6L, Hematocrit 31.5L , Mean Corpuscular Volume 91, Mean Corpuscular Hemoglobin 27.8, Mean Corpuscular Hemoglobin Concent 30.4L, Red Cell Distribution Width 19.7H, Platelet Count 100L, Mean Platelet Volume 10.4H, Neutrophils (%) (Auto) , Lymphocytes (%) (Auto) , Monocytes (%) (Auto) , Eosinophils (%) (Auto) , Basophils (%) (Auto) , Differential Total Cells Counted 100, Neutrophils % ( Manual) 82H, Lymphocytes % (Manual) 10L, Monocytes % (Manual) 5, Eosinophils % ( Manual) 0, Basophils % (Manual) 0, Band Neutrophils 3, Nucleated Red Blood Cells 4, Platelet Estimate DecreasedL, Platelet Morphology Normal, Hypochromasia 2+, Poikilocytosis 2+, Anisocytosis 2+, [place] Cells 1+, Acanthocytes 1+, Schistocytes 1+, Sodium Level 135L, Potassium Level 4.6, Chloride Level 104, Carbon Dioxide Level 21, Anion Gap 10, Blood Urea Nitrogen 84H, Creatinine 2.9H, Estimat Glomerular Filtration Rate , Glucose Level 116H, Uric Acid 8.0H, Calcium Level 8.6, Phosphorus Level 5.9H, Magnesium Level 1.9, Total Bilirubin 1.0, Gamma Glutamyl Transpeptidase 235H, Aspartate Amino Transf (AST/SGOT) 58H, Alanine Aminotransferase (ALT/SGPT) 149H, Alkaline Phosphatase 136H, Pro-B-Type Natriuretic Peptide > 77368M, Total Protein 6.6, Albumin 2.5L, Globulin 4.1, Albumin/Globulin Ratio 0.6L, Digoxin Level 1.6 Height (Feet): 5 Height (Inches): 5.00 Weight (Pounds): 178 Marshall Martinez MD Nov 30, 2017 14:27
--- NOTE | 2017-11-30 14:54 | General Progress Note ---
Assessment/Plan Status: stable Assessment/Plan encephalopathy due to [facility] anxiety ativan prn Subjective Date patient seen: Nov 30, 2017 Neurologic/Psychiatric: Reports: anxiety, depressed Allergies: Coded Allergies: No Known Allergies (Unverified , 08/30/17) Objective Last 24 Hour Vital Signs Date Time Temp Pulse Resp B/P (MAP) Pulse Ox O2 Delivery O2 Flow Rate FiO2 11/30/17 13:51 65 16 110/64 100 Nasal Cannula 3 11/30/17 13:48 207.5 72 20 98 11/30/17 13:47 207.7 72 20 99 11/30/17 13:36 62 16 96/61 100 Nasal Cannula 3 11/30/17 13:31 67 16 99/59 100 Nasal Cannula 3 11/30/17 13:26 97.4 69 16 100/61 100 Nasal Cannula 3 97.4 11/30/17 12:00 97.2 83 20 131/79 (96) 95 97.2 11/30/17 09:00 Room Air Room Air 11/30/17 09:00 67 134/76 11/30/17 08:41 134/76 11/30/17 08:00 97.0 67 20 134/76 (95) 100 97.0 11/30/17 05:31 142/85 11/30/17 04:00 97.0 76 20 142/85 (104) 96 97.0 11/30/17 04:00 71 11/30/17 00:00 65 11/30/17 00:00 97.0 71 20 132/79 (96) 97 97.0 11/29/17 21:22 61 131/73 11/29/17 21:21 131/73 11/29/17 21:00 Room Air Room Air 11/29/17 20:00 97.0 74 20 131/73 (92) 95 97.0 11/29/17 20:00 61 11/29/17 16:00 63 11/29/17 15:55 97.0 68 18 126/79 (95) 95 97.0 Intake and Output 11/29/17 11/30/17 19:00 07:00 Intake Total 480 ml Output Total 800 ml 600 ml Balance -320 ml -600 ml Intake Oral 480 ml Output Urine Total 800 ml 600 ml Laboratory Tests 11/30/17 05:35: White Blood Count 3.3L, Red Blood Count 3.44L, Hemoglobin 9.6L, Hematocrit 31.5L , Mean Corpuscular Volume 91, Mean Corpuscular Hemoglobin 27.8, Mean Corpuscular Hemoglobin Concent 30.4L, Red Cell Distribution Width 19.7H, Platelet Count 100L, Mean Platelet Volume 10.4H, Neutrophils (%) (Auto) , Lymphocytes (%) (Auto) , Monocytes (%) (Auto) , Eosinophils (%) (Auto) , Basophils (%) (Auto) , Differential Total Cells Counted 100, Neutrophils % ( Manual) 82H, Lymphocytes % (Manual) 10L, Monocytes % (Manual) 5, Eosinophils % ( Manual) 0, Basophils % (Manual) 0, Band Neutrophils 3, Nucleated Red Blood Cells 4, Platelet Estimate DecreasedL, Platelet Morphology Normal, Hypochromasia 2+, Poikilocytosis 2+, Anisocytosis 2+, [place] Cells 1+, Acanthocytes 1+, Schistocytes 1+, Sodium Level 135L, Potassium Level 4.6, Chloride Level 104, Carbon Dioxide Level 21, Anion Gap 10, Blood Urea Nitrogen 84H, Creatinine 2.9H, Estimat Glomerular Filtration Rate , Glucose Level 116H, Uric Acid 8.0H, Calcium Level 8.6, Phosphorus Level 5.9H, Magnesium Level 1.9, Total Bilirubin 1.0, Gamma Glutamyl Transpeptidase 235H, Aspartate Amino Transf (AST/SGOT) 58H, Alanine Aminotransferase (ALT/SGPT) 149H, Alkaline Phosphatase 136H, Pro-B-Type Natriuretic Peptide > 60252A, Total Protein 6.6, Albumin 2.5L, Globulin 4.1, Albumin/Globulin Ratio 0.6L, Digoxin Level 1.6 Height (Feet): 5 Height (Inches): 5.00 Weight (Pounds): 178 General Appearance: no apparent distress, alert, confused Ziyad Ledezma MD Nov 30, 2017 14:54
[2017-11-30] MEDS: Fluconazole 100mg tab ORAL SCH (15:36)
--- NOTE | 2017-11-30 18:45 | Procedure Note ---
DATE OF PROCEDURE: 11/30/2017 SURGEON: Robin Choudhary M.D. ANESTHESIOLOGIST: Dr. Zaldivar. PROCEDURE: Upper endoscopy with brushing of the esophagus. ANESTHESIA: Per Dr. Zaldivar. INSTRUMENT: Olympus adult flexible upper endoscope. INDICATION: GI bleeding, stool OB positive. The procedure, risks, benefits, and possible consequences, including hemorrhage, aspiration, perforation and infection, and alternative treatments, were explained to the patient/legal guardian by Dr. Robin Choudhary and the patient/legal guardian understood and accepted these risks. DESCRIPTION OF PROCEDURE: After informed consent was obtained and the patient was adequately sedated, Olympus upper endoscope was advanced from the mouth to esophagus into the stomach and second portion of duodenum, and retroflexion was performed in the stomach. The patient had severe Kym esophagitis. Brushing from the upper esophagus was obtained for diagnosis. The rest of the exam grossly looked within normal limits. No active upper GI bleeding. No esophageal nor gastric varices were seen. The patient tolerated the procedure very well without any complications. SUMMARY OF FINDINGS: Kym esophagitis, status post brush biopsy, otherwise normal upper endoscopic examination although I have to mention there was some food material in the stomach which made examination of the stomach somewhat limited. RECOMMENDATIONS: Follow up brushing results and if it is positive for Kym, we will treat. Robin Choudhary M.D. DR: Linnea JOB#: [id number] CC:
[2017-12-01] VITALS: BP 134/81
[2017-12-01 04:00] VITALS: BP 121/76
--- NOTE | 2017-12-01 05:49 | General Progress Note ---
Assessment/Plan Assessment/Plan #. 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 Hepatitis and human immunodeficiency virus are negative. Counts in line with historical values over time, continues to persist --> Ultrasound of the abdomen from last admission showed cirrhosis/HSM --> Tumor markers reviewed and are negative from before. --> Likely leukopenia secondary to splenomegaly. Give neupogen if ANC <1000 --> s/p paracentesis, 11/22: yielding 5.9L of fluid. await cytology though in prior was negative --> Current WBC of 2.9, is on low side, low threshold for neupogen --> as per gi, rifaxamin, lactulose as needed, adjust to bm, steriods as well 2. Anemia due to underlying chronic disease, appears to be stable. --> anemia w/u if hgb worsens, consider transfusion prn --> Current Hgb of 8.6, stable. 3. Coagulopathy, likely related to underlying cirrhosis of the liver. --> VitK prn basis, given by GI 4. Hyperkalemia, given Kayexalate, currently improved. 5. Biventricular failure with severe pulmonary hypertension. The patient has seen by Cardiology. 6. Ascites, --> S/P paracentesis, yielding 5.9 liters of fluid, 11/26 The time the note was entered does not necessarily correspond to the time the patient was seen. Subjective Constitutional: Denies: no symptoms, chills, diaphoresis, fever, malaise, weakness, other HEENT: Denies: no symptoms, eye pain, blurred vision, tearing, double vision, ear pain, ear discharge, nose pain, nose congestion, throat pain, throat swelling, mouth pain, mouth swelling, other Cardiovascular: Denies: no symptoms, chest pain, edema, irregular heart rate, lightheadedness, palpitations, syncope, other Respiratory: Denies: no symptoms, cough, orthopnea, shortness of breath, SOB with excertion, SOB at rest, sputum, stridor, wheezing, other Gastrointestinal/Abdominal: Denies: no symptoms, abdomen distended, abdominal pain, black stools, tarry stools, blood in stool, constipated, diarrhea, difficulty swallowing, nausea, poor appetite, poor fluid intake, rectal bleeding , vomiting, other Genitourinary: Denies: no symptoms, burning, discharge, frequency, flank pain, hematuria, incontinence, pain, urgency, other Neurologic/Psychiatric: Denies: no symptoms, anxiety, depressed, emotional problems, headache, numbness, paresthesia, pre-existing deficit, seizure, tingling, tremors, weakness, other Endocrine: Denies: no symptoms, excessive sweating, flushing, intolerance to cold, intolerance to heat, increased hunger, increased thirst, increased urine, unexplained weight gain, unexplained weight loss, other Hematologic/Lymphatic: Denies: no symptoms, anemia, easy bleeding, easy bruising, other Allergies: Coded Allergies: No Known Allergies (Unverified , 08/30/17) Subjective Pt awake and alert. No acute events. on NC, no complaints otherwise Objective Last 24 Hour Vital Signs Date Time Temp Pulse Resp B/P (MAP) Pulse Ox O2 Delivery O2 Flow Rate FiO2 12/01/17 04:00 97.0 76 20 121/76 (91) 100 97.0 12/01/17 00:00 97.0 70 20 134/81 (98) 100 97.0 12/01/17 00:00 65 11/30/17 23:10 68 11/30/17 22:13 129/55 11/30/17 22:13 72 129/55 11/30/17 21:00 Room Air Room Air 11/30/17 20:00 96.5 72 20 129/55 (79) 99 96.5 11/30/17 16:00 97.2 71 20 125/64 (84) 95 97.2 11/30/17 16:00 78 11/30/17 15:36 110/64 11/30/17 13:51 65 16 110/64 100 Nasal Cannula 3 11/30/17 13:48 207.5 72 20 98 11/30/17 13:47 207.7 72 20 99 11/30/17 13:36 62 16 96/61 100 Nasal Cannula 3 11/30/17 13:31 67 16 99/59 100 Nasal Cannula 3 11/30/17 13:26 97.4 69 16 100/61 100 Nasal Cannula 3 97.4 11/30/17 12:00 97.2 83 20 131/79 (96) 95 97.2 11/30/17 12:00 67 11/30/17 09:00 Room Air Room Air 11/30/17 09:00 67 134/76 11/30/17 08:41 134/76 11/30/17 08:00 97.0 67 20 134/76 (95) 100 97.0 11/30/17 08:00 68 Intake and Output 11/30/17 12/01/17 19:00 07:00 Intake Total 320 ml Output Total 450 ml Balance -130 ml Intake Oral 120 ml IV Total 200 ml Output Urine Total 450 ml Height (Feet): 5 Height (Inches): 5.00 Weight (Pounds): 178 General Appearance: no apparent distress EENT: TMs normal Neck: normal alignment Cardiovascular: regular rhythm Respiratory/Chest: chest wall non-tender Abdomen: non tender Extremities: normal inspection Edema: 1+ Leg (L), 1+ Leg (R) Edema: mild edema Neurologic: alert Skin: warm/dry Christiano Hoffmann MD Dec 01, 2017 05:49
[2017-12-01] MEDS: HydrALAZINE 25mg tab NG SCH (06:34)
[2017-12-01 08:00] VITALS: BP 116/67
[2017-12-01] MEDS: Imdur 30mg tab ORAL SCH (09:19)
[2017-12-01] MEDS: Fluconazole 100mg tab ORAL SCH (09:20)
--- NOTE | 2017-12-01 10:30 | Nephrology Progress Note ---
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 (3) Anemia (4) 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 hypertension (5) Cirrhosis and encephalopathy (6) Atrial fibrillation (7) Hypoglycemia (8) elevated liver enzymes) Plan today's lab pending on prednisone trial per GI yates- off midodrine- Digoxin- Nitrates- Lactulose as needed adjust meds for bp Optimize cardiac condition gentle diuresis correct electrolyte imbalances one dose of Kayexelate 11/29 Subjective ROS Limited/Unobtainable: No Constitutional: Reports: malaise Objective Objective Last 24 Hour Vital Signs Date Time Temp Pulse Resp B/P (MAP) Pulse Ox O2 Delivery O2 Flow Rate FiO2 12/01/17 09:19 116/67 12/01/17 09:19 62 116/67 12/01/17 09:00 Room Air Room Air 12/01/17 08:00 75 12/01/17 08:00 96.9 62 20 116/67 (83) 99 96.9 12/01/17 06:34 121/76 12/01/17 04:00 97.0 76 20 121/76 (91) 100 97.0 12/01/17 04:00 73 12/01/17 00:00 97.0 70 20 134/81 (98) 100 97.0 12/01/17 00:00 65 11/30/17 23:10 68 11/30/17 22:13 129/55 11/30/17 22:13 72 129/55 11/30/17 21:00 Room Air Room Air 11/30/17 20:00 96.5 72 20 129/55 (79) 99 96.5 11/30/17 16:00 97.2 71 20 125/64 (84) 95 97.2 11/30/17 16:00 78 11/30/17 15:36 110/64 11/30/17 13:51 65 16 110/64 100 Nasal Cannula 3 11/30/17 13:48 207.5 72 20 98 11/30/17 13:47 207.7 72 20 99 11/30/17 13:36 62 16 96/61 100 Nasal Cannula 3 11/30/17 13:31 67 16 99/59 100 Nasal Cannula 3 11/30/17 13:26 97.4 69 16 100/61 100 Nasal Cannula 3 97.4 11/30/17 12:00 97.2 83 20 131/79 (96) 95 97.2 11/30/17 12:00 67 Intake and Output 11/30/17 12/01/17 19:00 07:00 Intake Total 320 ml Output Total 450 ml 600 ml Balance -130 ml -600 ml Intake Oral 120 ml IV Total 200 ml Output Urine Total 450 ml 600 ml Laboratory Tests 12/01/17 09:45: White Blood Count [Pending], Red Blood Count [Pending], Hemoglobin [Pending], Hematocrit [Pending], Mean Corpuscular Volume [Pending], Mean Corpuscular Hemoglobin [Pending], Mean Corpuscular Hemoglobin Concent [Pending], Red Cell Distribution Width [Pending], Platelet Count [Pending], Mean Platelet Volume [ Pending], Neutrophils (%) (Auto) [Pending], Lymphocytes (%) (Auto) [Pending], Monocytes (%) (Auto) [Pending], Eosinophils (%) (Auto) [Pending], Basophils (%) (Auto) [Pending], Sodium Level [Pending], Potassium Level [Pending], Chloride Level [Pending], Carbon Dioxide Level [Pending], Blood Urea Nitrogen [Pending], Creatinine [Pending], Estimat Glomerular Filtration Rate [Pending], Glucose Level [Pending], Calcium Level [Pending] Height (Feet): 5 Height (Inches): 5.00 Weight (Pounds): 177 General Appearance: no apparent distress Objective no change Noel Kim MD Dec 01, 2017 10:30
[2017-12-01 10:31] LABS: HEMOGLOBIN 9.5 G/DL (14.2-18.0); MEAN CORPUSCULAR VOLUME 93 FL (80-99); PLATELET COUNT 98 K/UL (150-450); RED BLOOD COUNT 3.43 M/UL (4.70-6.10); RED CELL DISTRIBUTION WIDTH 20.1 % (11.6-14.8); WHITE BLOOD COUNT 3.7 K/UL (4.8-10.8)
[2017-12-01 10:58] LABS: ANION GAP 10 mmol/L (5-15); BLOOD UREA NITROGEN 86 mg/dL (7-18); CALCIUM 8.3 MG/DL (8.5-10.1); CARBON DIOXIDE 23 MMOL/L (21-32); CHLORIDE 104 MMOL/L (98-107); CREATININE 2.8 MG/DL (0.55-1.30); POTASSIUM 4.7 MMOL/L (3.5-5.1); SODIUM 137 MMOL/L (136-145)
[2017-12-01 11:02] LABS: ALANINE AMINOTRANSFERASE 123 U/L (12-78); ALBUMIN 2.4 G/DL (3.4-5.0); ALKALINE PHOSPHATASE 130 U/L (46-116); ASPARTATE AMINO TRANSFERASE 52 U/L (15-37); BILIRUBIN,DIRECT 0.3 MG/DL (0.0-0.3); BILIRUBIN,TOTAL 0.9 MG/DL (0.2-1.0); PHOSPHORUS 5.6 MG/DL (2.5-4.9)
[2017-12-01 12:00] VITALS: BP 129/74
[2017-12-01] MEDS ORDERED: ALLOPURINOL300 M1 ORAL (12:50)
[2017-12-01] MEDS ORDERED: RENVELA800 MG ORAL (12:51)
--- NOTE | 2017-12-01 12:51 | General Progress Note ---
Assessment/Plan Assessment/Plan encephalopathy due to [facility] anxiety ativan prn Subjective Date patient seen: Dec 01, 2017 Neurologic/Psychiatric: Reports: anxiety, depressed, emotional problems Allergies: Coded Allergies: No Known Allergies (Unverified , 08/30/17) Objective Last 24 Hour Vital Signs Date Time Temp Pulse Resp B/P (MAP) Pulse Ox O2 Delivery O2 Flow Rate FiO2 12/01/17 09:19 116/67 12/01/17 09:19 62 116/67 12/01/17 09:00 Room Air Room Air 12/01/17 08:00 75 12/01/17 08:00 96.9 62 20 116/67 (83) 99 96.9 12/01/17 06:34 121/76 12/01/17 04:00 97.0 76 20 121/76 (91) 100 97.0 12/01/17 04:00 73 12/01/17 00:00 97.0 70 20 134/81 (98) 100 97.0 12/01/17 00:00 65 11/30/17 23:10 68 11/30/17 22:13 129/55 11/30/17 22:13 72 129/55 11/30/17 21:00 Room Air Room Air 11/30/17 20:00 96.5 72 20 129/55 (79) 99 96.5 11/30/17 16:00 97.2 71 20 125/64 (84) 95 97.2 11/30/17 16:00 78 11/30/17 15:36 110/64 11/30/17 13:51 65 16 110/64 100 Nasal Cannula 3 11/30/17 13:48 207.5 72 20 98 11/30/17 13:47 207.7 72 20 99 11/30/17 13:36 62 16 96/61 100 Nasal Cannula 3 11/30/17 13:31 67 16 99/59 100 Nasal Cannula 3 11/30/17 13:26 97.4 69 16 100/61 100 Nasal Cannula 3 97.4 Intake and Output 11/30/17 12/01/17 19:00 07:00 Intake Total 320 ml Output Total 450 ml 600 ml Balance -130 ml -600 ml Intake Oral 120 ml IV Total 200 ml Output Urine Total 450 ml 600 ml Laboratory Tests 12/01/17 09:40: Phosphorus Level 5.6H, Magnesium Level 2.0, Total Bilirubin 0.9, Direct Bilirubin 0.3, Aspartate Amino Transf (AST/SGOT) 52H, Alanine Aminotransferase ( ALT/SGPT) 123H, Alkaline Phosphatase 130H, Total Protein 6.4, Albumin 2.4L 12/01/17 09:45: White Blood Count 3.7L, Red Blood Count 3.43L, Hemoglobin 9.5L, Hematocrit 32.0L , Mean Corpuscular Volume 93, Mean Corpuscular Hemoglobin 27.7, Mean Corpuscular Hemoglobin Concent 29.7L, Red Cell Distribution Width 20.1H, Platelet Count 98L, Mean Platelet Volume 9.2, Neutrophils (%) (Auto) , Lymphocytes (%) (Auto) , Monocytes (%) (Auto) , Eosinophils (%) (Auto) , Basophils (%) (Auto) , Differential Total Cells Counted 100, Neutrophils % ( Manual) 83H, Lymphocytes % (Manual) 9L, Monocytes % (Manual) 8, Eosinophils % ( Manual) 0, Basophils % (Manual) 0, Band Neutrophils 0, Platelet Estimate DecreasedL, Platelet Morphology Normal, Hypochromasia 2+, Poikilocytosis 2+, Anisocytosis 2+, Acanthocytes 2+, Sodium Level 137, Potassium Level 4.7, Chloride Level 104, Carbon Dioxide Level 23, Anion Gap 10, Blood Urea Nitrogen 86H, Creatinine 2.8H, Estimat Glomerular Filtration Rate , Glucose Level 139H, Calcium Level 8.3L Height (Feet): 5 Height (Inches): 5.00 Weight (Pounds): 177 Ziyad Ledezma MD Dec 01, 2017 12:51
[2017-12-01] MEDS ORDERED: AMPICILLIN250 MG ORAL (12:54)
[2017-12-01] MEDS ORDERED: COREG3.125 MG ORAL (12:57)
[2017-12-01] MEDS ORDERED: BISACODYL10 M1 RC (12:58)
[2017-12-01] MEDS ORDERED: PROCRIT20000 UNI2 SUBQ (13:02)
[2017-12-01] MEDS ORDERED: FLUCONAZOLE100 MG ORAL (13:04)
[2017-12-01] MEDS ORDERED: HYDRALAZINE HCL25 M2 PO (13:09)
--- NOTE | 2017-12-01 13:09 | GI Progress Note ---
Assessment/Plan Problems: (1) Hepatic encephalopathy ICD Codes: K72.90 - Hepatic failure, unspecified without coma SNOMED: 92819589 (2) Cirrhosis ICD Codes: K74.60 - Unspecified cirrhosis of liver SNOMED: 73294371 Qualifiers: Qualified Codes: K70.31 - Alcoholic cirrhosis of liver with ascites (3) Anemia ICD Codes: D64.9 - Anemia, unspecified SNOMED: 588421046 Qualifiers: Qualified Codes: D64.9 - Anemia, unspecified (4) Hepatorenal syndrome ICD Codes: K76.7 - Hepatorenal syndrome SNOMED: 38316328 Status: stable Status Narrative Discussed with Dr. Choudhary. Assessment/Plan s/p paracentesis >> r/o SBP hepatitis panel on last admission negative OB stool negative liver shock Discriminant function = 84.8 points >> Poor Prognosis.Discriminant Function> 32 points indicates poor prognosis and patient may benefit from glucocorticoid therapy. HRS, okay for DC per GI standpoint patient most likely has chronic renal insufficiency and does not have HRS. dc xifaxan dc prednisone dc midodrine dc octreotide gtt monitor H&H, prn transfusions bowel regime ppi tolerating diet fu labs, NH3 The patient was seen and examined at bedside and all new and available data was reviewed in the patients chart. I agree with the above findings, impression and plan. (Patient seen earlier today. Signature stamp does not reflect patient encounter time.). - Robin Choudhary MD Subjective Subjective abdominal pain improved denies any diarrhea overall feels good Objective Last 24 Hour Vital Signs Date Time Temp Pulse Resp B/P (MAP) Pulse Ox O2 Delivery O2 Flow Rate FiO2 12/01/17 09:19 116/67 12/01/17 09:19 62 116/67 12/01/17 09:00 Room Air Room Air 12/01/17 08:00 75 12/01/17 08:00 96.9 62 20 116/67 (83) 99 96.9 12/01/17 06:34 121/76 12/01/17 04:00 97.0 76 20 121/76 (91) 100 97.0 12/01/17 04:00 73 12/01/17 00:00 97.0 70 20 134/81 (98) 100 97.0 12/01/17 00:00 65 11/30/17 23:10 68 11/30/17 22:13 129/55 11/30/17 22:13 72 129/55 11/30/17 21:00 Room Air Room Air 11/30/17 20:00 96.5 72 20 129/55 (79) 99 96.5 11/30/17 16:00 97.2 71 20 125/64 (84) 95 97.2 11/30/17 16:00 78 11/30/17 15:36 110/64 11/30/17 13:51 65 16 110/64 100 Nasal Cannula 3 11/30/17 13:48 207.5 72 20 98 11/30/17 13:47 207.7 72 20 99 11/30/17 13:36 62 16 96/61 100 Nasal Cannula 3 11/30/17 13:31 67 16 99/59 100 Nasal Cannula 3 11/30/17 13:26 97.4 69 16 100/61 100 Nasal Cannula 3 97.4 Intake and Output 11/30/17 12/01/17 19:00 07:00 Intake Total 320 ml Output Total 450 ml 600 ml Balance -130 ml -600 ml Intake Oral 120 ml IV Total 200 ml Output Urine Total 450 ml 600 ml Laboratory Tests Test 12/01/17 09:40 12/01/17 09:45 Phosphorus Level 5.6 MG/DL (2.5-4.9) H Magnesium Level 2.0 MG/DL (1.8-2.4) Total Bilirubin 0.9 MG/DL (0.2-1.0) Direct Bilirubin 0.3 MG/DL (0.0-0.3) Aspartate Amino Transf (AST/SGOT) 52 U/L (15-37) H Alanine Aminotransferase (ALT/SGPT) 123 U/L (12-78) H Alkaline Phosphatase 130 U/L (46-116) H Total Protein 6.4 G/DL (6.4-8.2) Albumin 2.4 G/DL (3.4-5.0) L White Blood Count 3.7 K/UL (4.8-10.8) L Red Blood Count 3.43 M/UL (4.70-6.10) L Hemoglobin 9.5 G/DL (14.2-18.0) L Hematocrit 32.0 % (42.0-52.0) L Mean Corpuscular Volume 93 FL (80-99) Mean Corpuscular Hemoglobin 27.7 PG (27.0-31.0) Mean Corpuscular Hemoglobin Concent 29.7 G/DL (32.0-36.0) L Red Cell Distribution Width 20.1 % (11.6-14.8) H Platelet Count 98 K/UL (150-450) L Mean Platelet Volume 9.2 FL (6.5-10.1) Neutrophils (%) (Auto) % (45.0-75.0) Lymphocytes (%) (Auto) % (20.0-45.0) Monocytes (%) (Auto) % (1.0-10.0) Eosinophils (%) (Auto) % (0.0-3.0) Basophils (%) (Auto) % (0.0-2.0) Differential Total Cells Counted 100 Neutrophils % (Manual) 83 % (45-75) H Lymphocytes % (Manual) 9 % (20-45) L Monocytes % (Manual) 8 % (1-10) Eosinophils % (Manual) 0 % (0-3) Basophils % (Manual) 0 % (0-2) Band Neutrophils 0 % (0-8) Platelet Estimate Decreased L Platelet Morphology Normal Hypochromasia 2+ Poikilocytosis 2+ Anisocytosis 2+ Acanthocytes 2+ Sodium Level 137 MMOL/L (136-145) Potassium Level 4.7 MMOL/L (3.5-5.1) Chloride Level 104 MMOL/L (98-107) Carbon Dioxide Level 23 MMOL/L (21-32) Anion Gap 10 mmol/L (5-15) Blood Urea Nitrogen 86 mg/dL (7-18) H Creatinine 2.8 MG/DL (0.55-1.30) H Estimat Glomerular Filtration Rate mL/min (>60) Glucose Level 139 MG/DL (74-106) H Calcium Level 8.3 MG/DL (8.5-10.1) L Height (Feet): 5 Height (Inches): 5.00 Weight (Pounds): 177 General Appearance: WD/WN, no apparent distress, alert Cardiovascular: normal rate Respiratory/Chest: normal breath sounds, no respiratory distress Abdominal Exam: normal bowel sounds, non tender, soft Extremities: normal range of motion, non-tender WolfChepe soliz NP Dec 01, 2017 13:09
[2017-12-01] MEDS ORDERED: ISOSORBIDE MONO20 MG PO (13:11)
[2017-12-01] MEDS ORDERED: ISOSORBIDE MONO60 M1 PO (13:13)
[2017-12-01] MEDS ORDERED: PANTOPRAZOLE SO20 MG ORAL (13:14)
[2017-12-01] MEDS ORDERED: POLYETHYLENE GL17 GM ORAL (13:16)
--- NOTE | 2017-12-01 13:57 | Cardiology Progress Note ---
Assessment/Plan Status: stable Assessment/Plan Assessment: 1) Cirrhosis (2) Anemia (3) Iron deficiency (4) Systolic and diastolic CHF, acute on chronic (5) Atrial fibrillation (6) Hypoglycemia Plan: Hold aldactone in setting of RAMONE and hyperkalemia Continue coreg for heart failure and afib - increase dose as tolerated Hydralazine/nitro for preload/afterload reduction No indication for cardioversion Stopped midodrine as this will increase afterload in a failing heart and worsen cardiac output, his SVR is already at a maximum Paracentesis + Albumin to support BP EGD completed, no bleeding, amy esophagitis Steroids started per GI Mild diuresis for pulmonary vascular congestion. Defer ICD due to medication non compliance and prognosis <1 year Continue telemetry to evaluate for arrhythmias Patient did not qualify for life vest on previous admission SNF dispo planning Subjective Cardiovascular: Reports: no symptoms Respiratory: Reports: no symptoms Gastrointestinal/Abdominal: Reports: no symptoms Genitourinary: Reports: no symptoms Subjective No acute events, vitals stable, H/H dropping Vitals stable, NGT out. Awaiting placement to SNF, no complaints Objective Last 24 Hour Vital Signs Date Time Temp Pulse Resp B/P (MAP) Pulse Ox O2 Delivery O2 Flow Rate FiO2 12/01/17 12:00 77 12/01/17 12:00 97.0 67 20 129/74 (92) 94 97.0 12/01/17 09:19 116/67 12/01/17 09:19 62 116/67 12/01/17 09:00 Room Air Room Air 12/01/17 08:00 75 12/01/17 08:00 96.9 62 20 116/67 (83) 99 96.9 12/01/17 06:34 121/76 12/01/17 04:00 97.0 76 20 121/76 (91) 100 97.0 12/01/17 04:00 73 12/01/17 00:00 97.0 70 20 134/81 (98) 100 97.0 12/01/17 00:00 65 11/30/17 23:10 68 11/30/17 22:13 129/55 11/30/17 22:13 72 129/55 11/30/17 21:00 Room Air Room Air 11/30/17 20:00 96.5 72 20 129/55 (79) 99 96.5 11/30/17 16:00 97.2 71 20 125/64 (84) 95 97.2 11/30/17 16:00 78 11/30/17 15:36 110/64 General Appearance: no apparent distress, alert EENT: PERRL/EOMI, normal ENT inspection Rhythm: NSR Cardiovascular: normal peripheral pulses, normal rate Respiratory/Chest: chest wall non-tender, lungs clear Abdomen: normal bowel sounds, non tender Extremities: normal range of motion, non-tender Neurologic: slot key person II-XII grossly normal, no motor/sensory deficits Intake and Output 11/30/17 12/01/17 19:00 07:00 Intake Total 320 ml Output Total 450 ml 600 ml Balance -130 ml -600 ml Intake Oral 120 ml IV Total 200 ml Output Urine Total 450 ml 600 ml Laboratory Tests Test 12/01/17 09:40 12/01/17 09:45 Phosphorus Level 5.6 MG/DL (2.5-4.9) H Magnesium Level 2.0 MG/DL (1.8-2.4) Total Bilirubin 0.9 MG/DL (0.2-1.0) Direct Bilirubin 0.3 MG/DL (0.0-0.3) Aspartate Amino Transf (AST/SGOT) 52 U/L (15-37) H Alanine Aminotransferase (ALT/SGPT) 123 U/L (12-78) H Alkaline Phosphatase 130 U/L (46-116) H Total Protein 6.4 G/DL (6.4-8.2) Albumin 2.4 G/DL (3.4-5.0) L White Blood Count 3.7 K/UL (4.8-10.8) L Red Blood Count 3.43 M/UL (4.70-6.10) L Hemoglobin 9.5 G/DL (14.2-18.0) L Hematocrit 32.0 % (42.0-52.0) L Mean Corpuscular Volume 93 FL (80-99) Mean Corpuscular Hemoglobin 27.7 PG (27.0-31.0) Mean Corpuscular Hemoglobin Concent 29.7 G/DL (32.0-36.0) L Red Cell Distribution Width 20.1 % (11.6-14.8) H Platelet Count 98 K/UL (150-450) L Mean Platelet Volume 9.2 FL (6.5-10.1) Neutrophils (%) (Auto) % (45.0-75.0) Lymphocytes (%) (Auto) % (20.0-45.0) Monocytes (%) (Auto) % (1.0-10.0) Eosinophils (%) (Auto) % (0.0-3.0) Basophils (%) (Auto) % (0.0-2.0) Differential Total Cells Counted 100 Neutrophils % (Manual) 83 % (45-75) H Lymphocytes % (Manual) 9 % (20-45) L Monocytes % (Manual) 8 % (1-10) Eosinophils % (Manual) 0 % (0-3) Basophils % (Manual) 0 % (0-2) Band Neutrophils 0 % (0-8) Platelet Estimate Decreased L Platelet Morphology Normal Hypochromasia 2+ Poikilocytosis 2+ Anisocytosis 2+ Acanthocytes 2+ Sodium Level 137 MMOL/L (136-145) Potassium Level 4.7 MMOL/L (3.5-5.1) Chloride Level 104 MMOL/L (98-107) Carbon Dioxide Level 23 MMOL/L (21-32) Anion Gap 10 mmol/L (5-15) Blood Urea Nitrogen 86 mg/dL (7-18) H Creatinine 2.8 MG/DL (0.55-1.30) H Estimat Glomerular Filtration Rate mL/min (>60) Glucose Level 139 MG/DL (74-106) H Calcium Level 8.3 MG/DL (8.5-10.1) L Kieran Cedillo MD Dec 01, 2017 13:57
--- NOTE | 2017-12-01 16:07 | Discharge Summary ---
Discharge Summary Hospital Course Date of Admission Nov 21, 2017 at 04:44 Date of Discharge Dec 01, 2017 at 13:55 Admitting Diagnosis rapid atriel fibrillation, ascites HPI Jose Garcia is a 82 year old male who was admitted on Nov 21, 2017 at 04:44 for Rapid Atriel Fibrillation, Ascites Discharge Discharge Disposition Patient was discharged to SNF/Subacute Facility(03) Marshall Martinez MD Dec 01, 2017 16:07
--- NOTE | 2017-12-03 14:35 | Discharge Summary ---
Discharge Summary Discharge Summary _ DATE OF ADMISSION: 11/21/2017 DATE OF DISCHARGE: 12/01/2017 CONSULTANTS: Dr. Kieran Choudhary [facility] HOSPITAL COURSE: Patient is an 81-year-old male who was recently discharged from [facility] for ascites, presented to ER for complaints of abdominal distention and discomfort. Patient is noncompliant with medications and therapy. He has medical history significant for cirrhosis and atrial fibrillation. On evaluation at ED, he was found to be in atrial fibrillation with RVR. He was given a dose of Cardizem. He was given Lasix. Blood work showed elevated BNP > 35,000 and creatinine was 2.2, potassium was 5.1. He was admitted for A. fib and cirrhosis. He was placed on phototypesetting equipment monitor. He was followed by a fisher lobster. Patient had prior echocardiogram done that showed that ejection fraction 10-15% with biventricular failure and severe pulmonary hypertension. Aldactone was placed on hold. He was continued on Coreg. He was given hydralazine and nitroglycerin for preload and afterload reduction. There was no indication for a cardioversion. Patient did not qualify for LifeVest on previous admission. Patient had elevated renal function and elevated potassium level. He was given Kayexalate and lactulose. He was given gentle diuresis. On prism inspector of 11/22/2017, heart rate went down to 30s. He also had an episode of hypoglycemia, he was given IVF with dextrose. Stat paracentesis was ordered. He was lethargic. NGT and Adkins was inserted. He underwent ultrasound-guided thoracentesis yielding 5.9 L of fluid. NGT was eventually removed when patient was more alert. Patient has anemia and leukopenia. Pancytopenia was secondary to history of liver cirrhosis. Hepatitis and HIV screens were negative. Ultrasound of the abdomen from prior admission showed cirrhosis and hepatosplenomegaly. Anemia workup from prior admission showed iron deficiency. He was given bowel regimen. He was placed on proton pump inhibitors. Patient had decompensated cirrhosis. He was given lactulose, he was started on rifaximin, steroids and octreotide drip. He was given albumin and vitamin K. He was started on prednisone 40 mg daily. He had waxing and waning of consciousness. He was diagnosed with anxiety and encephalopathy by psychiatrist and was placed on Ativan prn. Creatinine stabilized. Plateaued at 3.0. Steroids and octreotide drip were discontinued. Urine culture showed growth of Enterococcus faecalis. Patient was given ceftriaxone, antibiotic was switched to ampicillin based on sensitivities. Patient had low platelet, heparin was discontinued. Stool OB was positive. On 11/30/2017, he underwent EGD with findings of Kym esophagitis. He was given fluconazole daily. Diet was resumed. Hemoglobin levels were stable. Cytology report from paracentesis was negative for malignant cells. He was eventually cleared for discharge to fdc. FINAL DIAGNOSES: Acute encephalopathy resolved Acute hypoxemic respiratory failure resolved Hypoglycemia Decompensated liver cirrhosis, status post large volume paracentesis on 2017 Anemia with acute blood loss and positive FOBT Status post EGD on 11/30/2017 Kym esophagitis Acute on chronic renal failure Hyperkalemia Acute on chronic systolic heart failure Pancytopenia Enterococcus faecalis UTI Atrial fibrillation Episode of hypoglycemia Hepatorenal syndrome Hepatic encephalopathy Anxiety 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 hypertension Severe mitral regurgitation Elevated liver enzymes Anemia due to underlying chronic disease Coagulopathy, likely related to underlying cirrhosis of the liver DISPOSITION: Patient was discharged to [facility]. DISCHARGE MEDICATIONS: Refer to Discharge Medication List. I have been assigned to dictate discharge summary on this account, and I was not involved in the patient's management. Pauline Melissa NP Dec 03, 2017 14:35
== END 2017-12-01 13:55 | DRG 194 ==
LOC: EDBD 04:10 → EMR 04:41 → 2E 04:44 → EDBEDREQ 04:52 → 2E 11-25 15:14
PROC: 0W9G3ZZ Drainage of Peritoneal Cavity, Percutaneous Approach (ICD-10-PCS; 2017-11-22)
PROC: 0DD58ZX Extraction of Esophagus, Via Natural or Artificial Opening Endoscopic, Diagnostic (ICD-10-PCS; principal; 2017-11-30 13:17)
DX: I50.43 Acute on chronic combined systolic (congestive) and diastolic (congestive) heart failure (principal); K76.7 Hepatorenal syndrome; J96.01 Acute respiratory failure with hypoxia; N17.9 Acute kidney failure, unspecified; D61.818 Other pancytopenia; B37.81 Candidal esophagitis; I48.91 Unspecified atrial fibrillation; N18.9 Chronic kidney disease, unspecified; Z91.14 Patient's other noncompliance with medication regimen; K74.69 Other cirrhosis of liver; R18.8 Other ascites; D50.9 Iron deficiency anemia, unspecified; R19.5 Other fecal abnormalities; D62 Acute posthemorrhagic anemia; D68.9 Coagulation defect, unspecified; E87.5 Hyperkalemia; I27.20 Pulmonary hypertension, unspecified; I34.0 Nonrheumatic mitral (valve) insufficiency; K72.90 Hepatic failure, unspecified without coma; F41.9 Anxiety disorder, unspecified; E16.2 Hypoglycemia, unspecified; N39.0 Urinary tract infection, site not specified; B95.2 Enterococcus as the cause of diseases classified elsewhere
CPT/HCPCS: 36415; 36600; 71045; 74018; 76942; 80048; 80053; 80061; 80076; 80162; 80329; 81001; 82140; 82248; 82270; 82533; 82550; 82553; 82607; 82728; 82746; 82803; 82962; 82977; 83540; 83550; 83690; 83735; 83880; 84100; 84300; 84443; 84484; 84550; 85007; 85025; 85610; 85730; 86140; 87070; 87086; 87181; 87205; 89050; 89051; 93005; 94003; 94150; 99291; J2250; J3430

== ENCOUNTER 2018-01-04 14:51 | Inpatient (IN) | payer MEDICAID ==
[~2018-01-04] VITALS: Ht 167.6 cm; Wt 85.0 kg
[~2018-01-04 14:51] MED LIST changes: +ALLOPURINOL300 M1 ORAL; +AMPICILLIN250 MG ORAL; +BISACODYL10 M1 RC; +COREG3.125 MG ORAL; +FLUCONAZOLE100 MG ORAL; +HYDRALAZINE HCL25 M2 PO; +ISOSORBIDE MONO20 MG PO; +ISOSORBIDE MONO60 M1 PO; +PANTOPRAZOLE SO20 MG ORAL; +POLYETHYLENE GL17 GM ORAL; +PROCRIT20000 UNI2 SUBQ; +RENVELA800 MG ORAL
[2018-01-04 14:52] VITALS: BP 118/77
--- NOTE | 2018-01-04 15:53 | Emergency Room Report ---
History of Present Illness General Chief Complaint: Abdominal Pain Source: Patient Present Illness HPI 82-year-old male, history of liver cirrhosis, COPD, CHF, newly diagnosed DVT of the right arm, presenting with lower chimney edema, right arm swelling, and shortness of breath. Patient states that he has been short of breath for the last 3 weeks. Says that he barely walks. No actual chest pain. No fever no chills. Complaining of generalized abdominal discomfort due to the distention. Says that he has had 2 paracentesis in the past. Allergies: Coded Allergies: No Known Allergies (Unverified , 08/30/17) Patient History Past Medical History: see triage record Past Surgical History: none Pertinent Family History: none Reviewed Nursing Documentation: PMH: Agreed; PSxH: Agreed Nursing Documentation-PMH Hx Cardiac Problems: Yes - AFIB Hx Hypertension: Yes Hx Cancer: Yes - CIRRHOSIS LIVER Hx Gastrointestinal Problems: Yes - GERD Hx Neurological Problems: No Hx Seizures: No - CKD Review of Systems All Other Systems: negative except mentioned in HPI Physical Exam Vital Signs Date Time Temp Pulse Resp B/P (MAP) Pulse Ox O2 Delivery O2 Flow Rate FiO2 01/04/18 14:43 98.0 95 18 118/77 100 Nasal Cannula 2.0 98.1 Sp02 EP Interpretation: reviewed, normal General Appearance: alert, GCS 15, moderate distress Head: normocephalic, atraumatic Eyes: bilateral eye normal inspection, bilateral eye PERRL, bilateral eye EOMI ENT: normal ENT inspection, normal pharynx, normal voice, moist mucus membranes Neck: normal inspection, full range of motion, supple Respiratory: other - Patient appears short of breath, however speaking in complete sentences Cardiovascular #1: tachycardia Cardiovascular #2: 2+ radial (R), 2+ radial (L) Gastrointestinal: other - Very slight distention and ascites, not peritoneal, nontender, not tense Musculoskeletal: other - Full range of motion, edema of the bilateral lower extremities 2+, as well as swelling of the right arm Neurologic: alert, oriented x3, responsive, motor strength/tone normal, sensory intact, speech normal Psychiatric: normal inspection, judgement/insight normal, memory normal Skin: normal inspection, normal color, no rash, warm/dry, well hydrated, normal turgor Procedures Critical Care Time Critical Care Time 40 minutes of CC time 82-year-old male, shortness of breath, CHF exacerbation, bilateral pleural effusions, primary very close cardiopulmonary monitoring Anticipate admission to Tele vs. DOREEN CC time also includes review of labs, review of EMR, discussion with family and paperwork from SNF, d/w hospitalist CC could include dosing of pressors, additional Abx CC time does not include procedures Medical Decision Making Diagnostic Impression: Primary Impression: UTI (urinary tract infection) Additional Impressions: CHF exacerbation DVT (deep venous thrombosis) Renal insufficiency ER Course 82-year-old male, bilateral lower extent any swelling, right arm swelling, shortness of breath DDX: Fluid overload, ascites, renal failure, CHF exacerbation, ACS, pneumonia, pleural effusions, DVT, PE Plan: Obtain labs, ua, EKG, CXR Consider CTA of renal function okay Venous Doppler for DVT ER course: Patient has been monitored during ED stay Given supplemental oxygen +DVT bl and arm, started on heparin drip also abx for UTI Disposition: Patient is to be admitted to ICU due to drip D/W hospitalist Dr Elen Charlton Please note that this Emergency Department Report was dictated using [email or web address] technology software, occasionally this can lead to erroneous entry secondary to interpretation by the dictation equipment. EKG Diagnostic Results EP Interpretation: Yes Rate: normal Rhythm: NSR ST Segments: Atrial fibrillation, T-wave inversion 1 and aVL ASA given to patient: No Rhythm Strip EP Interpretation: Yes Rate: 96 Rhythm: NSR, no PVCs, no ectopy Chest X-ray CXR: Ordered: Yes 1 view Indication: Shortness of breath EP interpretation: Yes Interpretation: Cardiomegaly, bilateral pleural effusions, CHF Impression: Cardiomegaly, bilateral pleural effusions, CHF Electronically signed by Ramila Solis MD Laboratory Tests Test 01/04/18 15:30 White Blood Count 4.1 K/UL (4.8-10.8) L Red Blood Count 3.06 M/UL (4.70-6.10) L Hemoglobin 9.2 G/DL (14.2-18.0) L Hematocrit 29.1 % (42.0-52.0) L Mean Corpuscular Volume 95 FL (80-99) Mean Corpuscular Hemoglobin 29.9 PG (27.0-31.0) Mean Corpuscular Hemoglobin Concent 31.4 G/DL (32.0-36.0) L Red Cell Distribution Width 18.3 % (11.6-14.8) H Platelet Count 178 K/UL (150-450) Mean Platelet Volume 7.8 FL (6.5-10.1) Neutrophils (%) (Auto) 56.6 % (45.0-75.0) Lymphocytes (%) (Auto) 25.0 % (20.0-45.0) Monocytes (%) (Auto) 12.0 % (1.0-10.0) H Eosinophils (%) (Auto) 5.0 % (0.0-3.0) H Basophils (%) (Auto) 1.5 % (0.0-2.0) Prothrombin Time 12.5 SEC (9.30-11.50) H Prothrombin Time INR 1.2 (0.9-1.1) H PTT 33 SEC (23-33) Urine Color Pale yellow Urine Appearance Cloudy Urine pH 5 (4.5-8.0) Urine Specific [place] 1.010 (1.005-1.035) Urine Protein 3+ (NEGATIVE) H Urine Glucose (UA) Negative (NEGATIVE) Urine Ketones Negative (NEGATIVE) Urine Blood 5+ (NEGATIVE) H Urine Nitrite Negative (NEGATIVE) Urine Bilirubin Negative (NEGATIVE) Urine Urobilinogen Normal MG/DL (0.0-1.0) Urine Leukocyte Esterase 3+ (NEGATIVE) H Urine RBC 20-30 /HPF (0 - 0) H Urine WBC Tntc /HPF (0 - 0) H Urine Squamous Epithelial Cells None /LPF (NONE/OCC) Urine Bacteria Moderate /HPF (NONE) H Sodium Level 143 MMOL/L (136-145) Potassium Level 5.2 MMOL/L (3.5-5.1) H Chloride Level 109 MMOL/L (98-107) H Carbon Dioxide Level 28 MMOL/L (21-32) Anion Gap 6 mmol/L (5-15) Blood Urea Nitrogen 36 mg/dL (7-18) H Creatinine 1.7 MG/DL (0.55-1.30) H Estimate Glomerular Filtration Rate mL/min (>60) Glucose Level 91 MG/DL (74-106) Calcium Level 8.4 MG/DL (8.5-10.1) L Total Bilirubin 0.4 MG/DL (0.2-1.0) Aspartate Amino Transferase (AST) 27 U/L (15-37) Alanine Aminotransferase (ALT) 15 U/L (12-78) Alkaline Phosphatase 111 U/L (46-116) Troponin I 0.049 ng/mL (0.000-0.056) Pro-B-Type Natriuretic Peptide > 72333 pg/mL (0-125) H Total Protein 6.8 G/DL (6.4-8.2) Albumin 2.4 G/DL (3.4-5.0) L Globulin 4.4 g/dL Albumin/Globulin Ratio 0.5 (1.0-2.7) L Lipase 183 U/L (73-393) Last Vital Signs Date Time Temp Pulse Resp B/P (MAP) Pulse Ox O2 Delivery O2 Flow Rate FiO2 01/04/18 14:43 98.0 95 18 118/77 100 Nasal Cannula 2.0 98.1 Disposition: ADMITTED INPATIENT Condition: Serious RetinoRamila M.D. Jan 04, 2018 15:53
--- NOTE | 2018-01-04 15:54 | Diagnostic Imaging Report ---
Indication: Chest pain Comparison: 11/21/2017 A single view chest radiograph was obtained. Findings: Pulmonary vascular congestion demonstrated once again with right pleural effusion and cardiomegaly. IMPRESSION: Pulmonary edema
[2018-01-04] MEDS ORDERED: Isovue-370 150ml vial INJ PRN (16:00)
[2018-01-04 16:01] LABS: BASOPHILS % (AUTO) 1.5 % (0.0-2.0); HEMATOCRIT 29.1 % (42.0-52.0); HEMOGLOBIN 9.2 G/DL (14.2-18.0); MEAN CORPUSCULAR VOLUME 95 FL (80-99); NEUTROPHILS % (AUTO) 56.6 % (45.0-75.0); PLATELET COUNT 178 K/UL (150-450); RED BLOOD COUNT 3.06 M/UL (4.70-6.10); RED CELL DISTRIBUTION WIDTH 18.3 % (11.6-14.8); WHITE BLOOD COUNT 4.1 K/UL (4.8-10.8)
[2018-01-04 16:04] LABS: APPEARANCE,URINE CLOUDY; BILIRUBIN, URINE NEGATIVE (NEGATIVE); COLOR,URINE PALE YELLOW; GLUCOSE, URINE (UA) NEGATIVE (NEGATIVE); KETONES,URINE NEGATIVE (NEGATIVE); LEUKOCYTE ESTERASE ,URINE 3+ (NEGATIVE); NITRITE,URINE NEGATIVE (NEGATIVE); PH,URINE 5 (4.5-8.0); PROTEIN,URINE 3+ (NEGATIVE); UROBILINOGEN,URINE NORMAL MG/DL (0.0-1.0)
[2018-01-04 16:12] LABS: ANION GAP 6 mmol/L (5-15); BLOOD UREA NITROGEN 36 mg/dL (7-18); CALCIUM 8.4 MG/DL (8.5-10.1); CARBON DIOXIDE 28 MMOL/L (21-32); CHLORIDE 109 MMOL/L (98-107); CREATININE 1.7 MG/DL (0.55-1.30); POTASSIUM 5.2 MMOL/L (3.5-5.1); SODIUM 143 MMOL/L (136-145)
[2018-01-04 16:23] LABS: ALANINE AMINOTRANSFERASE 15 U/L (12-78); ALBUMIN 2.4 G/DL (3.4-5.0); ALBUMIN/GLOBULIN RATIO 0.5 (1.0-2.7); ALKALINE PHOSPHATASE 111 U/L (46-116); ASPARTATE AMINO TRANSFERASE 27 U/L (15-37); BILIRUBIN,TOTAL 0.4 MG/DL (0.2-1.0)
[2018-01-04 16:28] LABS: INR 1.2 (0.9-1.1)
[2018-01-04 16:30] VITALS: BP 108/69
[2018-01-04] MEDS ORDERED: cefTRIAXone 1 GM in NS 55 ML IVPB ONE (16:30)
[2018-01-04] MEDS ORDERED: Heparin 25,000u/D5W 500ml 500 ML IV SCH (17:00)
[2018-01-04] MEDS ORDERED: Heparin 5000 units/ml inj IV ONE (17:00)
[2018-01-04 18:00] VITALS: BP 110/72
[2018-01-04 20:00] VITALS: BP 132/93
[2018-01-05] VITALS: BP 120/73
[2018-01-05 04:00] VITALS: BP 126/83
[2018-01-05] MEDS: HydrALAZINE 25mg tab ORAL SCH ×3 (06:22→21:08)
--- NOTE | 2018-01-05 06:42 | Consultation ---
Consult Note Consult Note DATE OF CONSULTATION: 01/05/2018 HEMATOLOGY/ONCOLOGY CONSULTATION CONSULTING PHYSICIAN: Christiano Hoffmann M.D. REQUESTING PHYSICIAN: Abraham Cabrera M.D. REASON FOR CONSULTATION: Evaluation of severe leukopenia and anemia. IDENTIFYING DATA: Dear Dr. Cabrera PATIENT SEEN ON LAST SEVERAL ADMISSION 82-year-old male with past medical history significant for cirrhosis, CKD, and AFib, chf at this time presents to [facility] with shortness of breath recently diagnosed right arm dvt, The patient is a poor historian and difficult to obtain any further history from the patient. He has been noted to have bilateral lower extremity edema past several days, WBC noted to be decreased. In the past admitted with cirrhosis and pancytopenia and currently on heparin gtt, and he was started on antibiotics. Hematology Service was consulted for further evaluation and treatment. The patient recently admitted to [facility] for similar symptoms in the past as well. here for paracentesis as well as arm dvt. PAST MEDICAL HISTORY: Cirrhosis. PAST SURGICAL HISTORY: None noted. ALLERGIES: No known drug allergies. REVIEW OF SYSTEMS: CONSTITUTIONAL: No fevers, chills, or night sweats. SKIN: No rashes, bums, or itching. HEENT: No headache, hearing or visual changes. BREASTS: No lumps, pain, or discharge. PULMONARY: No cough, sputum, or shortness of breath. GASTROINTESTINAL: No nausea, vomiting, or diarrhea. GENITOURINARY: No dysuria, freqency, or urgency. MUSCULOSKELETAL: No joint swelling, muscle pain, or trauma. PHYSICAL EXAMINATION: VITAL SIGNS: Reviewed. GENERAL: No acute distress. LUNGS: Decreased breath sounds. Minor crackles CARDIOVASCULAR: Regular rate. No S3 or S4. ABDOMEN: Soft, nontender, and nondistended. EXTREMITIES: A 1+ edema. right arm swollen>L arm Laboratory Tests Test 01/04/18 15:30 01/04/18 23:45 01/05/18 05:38 White Blood Count 4.1 K/UL (4.8-10.8) L Red Blood Count 3.06 M/UL (4.70-6.10) L Hemoglobin 9.2 G/DL (14.2-18.0) L Hematocrit 29.1 % (42.0-52.0) L Mean Corpuscular Volume 95 FL (80-99) Mean Corpuscular Hemoglobin 29.9 PG (27.0-31.0) Mean Corpuscular Hemoglobin Concent 31.4 G/DL (32.0-36.0) L Red Cell Distribution Width 18.3 % (11.6-14.8) H Platelet Count 178 K/UL (150-450) Mean Platelet Volume 7.8 FL (6.5-10.1) Neutrophils (%) (Auto) 56.6 % (45.0-75.0) Lymphocytes (%) (Auto) 25.0 % (20.0-45.0) Monocytes (%) (Auto) 12.0 % (1.0-10.0) H Eosinophils (%) (Auto) 5.0 % (0.0-3.0) H Basophils (%) (Auto) 1.5 % (0.0-2.0) Prothrombin Time 12.5 SEC (9.30-11.50) H Prothromb Time International Ratio 1.2 (0.9-1.1) H Activated Partial Thromboplast Time 33 SEC (23-33) 69 SEC (23-33) H Pending Urine Color Pale yellow Urine Appearance Cloudy Urine pH 5 (4.5-8.0) Urine Specific [place] 1.010 (1.005-1.035) Urine Protein 3+ (NEGATIVE) H Urine Glucose (UA) Negative (NEGATIVE) Urine Ketones Negative (NEGATIVE) Urine Blood 5+ (NEGATIVE) H Urine Nitrite Negative (NEGATIVE) Urine Bilirubin Negative (NEGATIVE) Urine Urobilinogen Normal MG/DL (0.0-1.0) Urine Leukocyte Esterase 3+ (NEGATIVE) H Urine RBC 20-30 /HPF (0 - 0) H Urine WBC Tntc /HPF (0 - 0) H Urine Squamous Epithelial Cells None /LPF (NONE/OCC) Urine Bacteria Moderate /HPF (NONE) H Sodium Level 143 MMOL/L (136-145) Potassium Level 5.2 MMOL/L (3.5-5.1) H Chloride Level 109 MMOL/L (98-107) H Carbon Dioxide Level 28 MMOL/L (21-32) Anion Gap 6 mmol/L (5-15) Blood Urea Nitrogen 36 mg/dL (7-18) H Creatinine 1.7 MG/DL (0.55-1.30) H Estimat Glomerular Filtration Rate mL/min (>60) Glucose Level 91 MG/DL (74-106) Calcium Level 8.4 MG/DL (8.5-10.1) L Total Bilirubin 0.4 MG/DL (0.2-1.0) Aspartate Amino Transf (AST/SGOT) 27 U/L (15-37) Alanine Aminotransferase (ALT/SGPT) 15 U/L (12-78) Alkaline Phosphatase 111 U/L (46-116) Troponin I 0.049 ng/mL (0.000-0.056) Pro-B-Type Natriuretic Peptide > 34460 pg/mL (0-125) H Total Protein 6.8 G/DL (6.4-8.2) Albumin 2.4 G/DL (3.4-5.0) L Globulin 4.4 g/dL Albumin/Globulin Ratio 0.5 (1.0-2.7) L Lipase 183 U/L (73-393) Assessment/Plan: #. Right arm dvt along with bilateral dvt of the lower extremity DVT with progression on xarelto --> currently is on a heparin gtt --> likely will need transition to coumadin as has progressed on xarelto --> eval for PE as necessary with either v/q scan or cta (though cr is elevated) #. 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 Hepatitis and human immunodeficiency virus are negative. --> Counts in line with historical values over time, continues to persist --> Ultrasound of the abdomen from last admission showed cirrhosis/HSM --> Tumor markers reviewed and are negative from before. --> Likely leukopenia secondary to splenomegaly. Give neupogen if ANC <1000 --> s/p paracentesis, 11/22: S/P paracentesis, yielding 5.9L of fluid. cytology though in prior was negative #. Anemia due to underlying chronic disease, appears to be stable. --> anemia w/u if hgb worsens, consider transfusion prn --> Current Hgb of 8.6, stable. #. Coagulopathy, likely related to underlying cirrhosis of the liver. --> VitK prn basis, given by GI #. Hyperkalemia, given Kayexalate, currently has improved. #. Biventricular failure with severe pulmonary hypertension. The patient has seen by Cardiology. #. Ascites --> S/P paracentesis, yielding 5.9 liters of fluid, 11/26 --> may need to repeat The time the note was entered does not necessarily correspond to the time the patient was seen. Christiano Hoffmann MD Jan 05, 2018 06:42
[2018-01-05 08:00] VITALS: BP 124/75
[2018-01-05] MEDS ORDERED: Heparin 25,000u/D5W 500ml 500 ML IV SCH ×2 (08:00→15:18)
[2018-01-05] MEDS ORDERED: Lactulose 20gm/30ml UDC ORAL PRN (09:15)
--- NOTE | 2018-01-05 09:30 | Consultation ---
Consult Note Assessment/Plan DICT # [id number] Sanford Amin MD Jan 05, 2018 09:30
--- NOTE | 2018-01-05 10:07 | History and Physical ---
History of Present Illness General Date patient seen: Jan 05, 2018 Time patient seen: 09:00 Reason for Hospitalization: Abdominal Pain Present Illness HPI 82 yo m with PMH of CHF (ef 10-15%, RVSP 70 on 10/13), cirrhosis, afib, B/L LE DVT's with multiple recent hospital admissions. Patients last admission was in -12/03/17 for abdominal distension and non compliance with medications. He was medically managed for cirrhosis and discharged to [facility]. Patient is unable to give a full history of change since his last hospital discharge. He states he was given medication but it is suspected that he has been non - compliant. It is possible patient was not taking xarelto for his afib and he presents with new right arm edema. Patient denies any chest pain at this time. He admits to occasional dyspnea. Patient denies heart palpitations. Patient has been full code however after further discussion of his cardiac status patient has chosen to be DNR DNI and is fully understanding. Allergies: Coded Allergies: No Known Allergies (Unverified , 08/30/17) Medication History Scheduled Allopurinol* (Allopurinol*), 300 MG ORAL DAILY, (Reported) Ampicillin (Ampicillin Trihydrate), 500 ORAL Q12HR, (Reported) Carvedilol (Coreg), 12.5 MG ORAL EVERY 12 HOURS Carvedilol (Coreg), 3.125 MG ORAL EVERY 12 HOURS, (Reported) Fluconazole (Fluconazole), 100 MG ORAL DAILY, (Reported) Furosemide* (Lasix*), 20 MG ORAL DAILY, (Reported) Hydralazine HCl (Hydralazine HCl), 25 MG PO Q8HR, (Reported) Hydralazine Hcl* (Hydralazine Hcl*), 50 MG ORAL EVERY 8 HOURS, (Reported) Isosorbide Mononitrate (Isosorbide Mononitrate Er), 60 MG PO DAILY, (Reported) Lisinopril (Lisinopril*), 5 MG ORAL DAILY, (Reported) Multivitamins* (Multivitamins*), 1 TAB ORAL DAILY Pantoprazole (Pantoprazole), 40 MG ORAL Q12HR, (Reported) Polyethylene Glycol 3350* (Polyethylene Glycol 3350*), 17 GM ORAL DAILY, ( Reported) Rivaroxaban (Xarelto*), 15 MG ORAL HS, (Reported) Sevelamer Carbonate (Renvela), 800 MG ORAL THREE TIMES A DAY, (Reported) Spironolactone (Aldactone), 25 MG ORAL DAILY Thiamine Hcl (Vitamin B1*), 100 MG ORAL DAILY Scheduled PRN Bisacodyl (Bisacodyl), 10 MG RC for Constipation, (Reported) Epoetin Pedro Pablo (Procrit), 20,000 UNIT SUBQ for Per rx protocol, (Reported) Miscellaneous Medications Isosorbide Mononitrate (Isosorbide Mononitrate), 20 MG PO, (Reported) Unable to Obtain Medications (Unable To Obtain Meds), (Reported) Unable to Obtain Medications (Unable To Obtain Meds), (Reported) Patient History Healthcare decision maker Resuscitation status DNR / DNI Advanced Directive on File No Social History Social History: (1) ETOH abuse Review of Systems All Other Systems: negative except mentioned in HPI ROS Narrative patient admits to swelling in his right arm patient denies chest pain and states he occasionally feels short of breath, unable to comment on exertional dyspnea as he is mostly bedbound Physical Exam General Appearance: no apparent distress, alert - patient answers questions appropriately as is A x O x 4 Lines, tubes and drains: peripheral HEENT: normocephalic, atraumatic, mucous membranes moist, PERRL Neck: non-tender, supple, normal inspection Respiratory/Chest: chest wall non-tender, no respiratory distress, no accessory muscle use, crackles/rales - b/l ant and post crackles at bases Cardiovascular/Chest: normal peripheral pulses, no JVD, tachycardia Abdomen: normal bowel sounds, non tender, soft, no mass - +ascites Extremities: severe edema - B/L L/E and RUE 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, oriented x 3, responsive, normal mood/ affect Last 24 Hour Vital Signs Date Time Temp Pulse Resp B/P (MAP) Pulse Ox O2 Delivery O2 Flow Rate FiO2 01/05/18 09:09 98 124/75 01/05/18 09:06 98 01/05/18 08:00 Nasal Cannula 2.0 01/05/18 08:00 98.5 82 21 124/75 (91) 91 98.5 01/05/18 06:22 126/83 01/05/18 04:00 98.0 96 24 126/83 (97) 99 98.0 01/05/18 04:00 Nasal Cannula 2.0 01/05/18 04:00 101 01/05/18 00:00 109 01/05/18 00:00 Nasal Cannula 2.0 01/05/18 00:00 98.0 99 20 120/73 (89) 99 98.0 01/04/18 22:21 Nasal Cannula 2.0 01/04/18 20:43 98.0 88 16 108/68 97 Room Air 98.1 01/04/18 20:00 98.1 95 20 132/93 (106) 100 98.1 01/04/18 18:00 83 18 110/72 97 Room Air 01/04/18 16:30 85 18 108/69 96 Room Air 01/04/18 14:52 98.1 88 16 118/77 100 Nasal Cannula 2.0 98.1 01/04/18 14:43 98.0 95 18 118/77 100 Nasal Cannula 2.0 98.1 Intake and Output 01/04/18 01/05/18 19:00 07:00 Intake Total 30.209 ml 302.090 ml Output Total 1200 ml Balance 30.209 ml -897.910 ml Intake IV Total 30.209 ml 302.090 ml Output Urine Total 1200 ml # Bowel Movements 1 Laboratory Tests Test 01/04/18 15:30 01/04/18 23:45 01/05/18 05:38 White Blood Count 4.1 K/UL (4.8-10.8) L Red Blood Count 3.06 M/UL (4.70-6.10) L Hemoglobin 9.2 G/DL (14.2-18.0) L Hematocrit 29.1 % (42.0-52.0) L Mean Corpuscular Volume 95 FL (80-99) Mean Corpuscular Hemoglobin 29.9 PG (27.0-31.0) Mean Corpuscular Hemoglobin Concent 31.4 G/DL (32.0-36.0) L Red Cell Distribution Width 18.3 % (11.6-14.8) H Platelet Count 178 K/UL (150-450) Mean Platelet Volume 7.8 FL (6.5-10.1) Neutrophils (%) (Auto) 56.6 % (45.0-75.0) Lymphocytes (%) (Auto) 25.0 % (20.0-45.0) Monocytes (%) (Auto) 12.0 % (1.0-10.0) H Eosinophils (%) (Auto) 5.0 % (0.0-3.0) H Basophils (%) (Auto) 1.5 % (0.0-2.0) Prothrombin Time 12.5 SEC (9.30-11.50) H Prothromb Time International Ratio 1.2 (0.9-1.1) H Activated Partial Thromboplast Time 33 SEC (23-33) 69 SEC (23-33) H > 150 SEC (23-33) *H Urine Color Pale yellow Urine Appearance Cloudy Urine pH 5 (4.5-8.0) Urine Specific [place] 1.010 (1.005-1.035) Urine Protein 3+ (NEGATIVE) H Urine Glucose (UA) Negative (NEGATIVE) Urine Ketones Negative (NEGATIVE) Urine Blood 5+ (NEGATIVE) H Urine Nitrite Negative (NEGATIVE) Urine Bilirubin Negative (NEGATIVE) Urine Urobilinogen Normal MG/DL (0.0-1.0) Urine Leukocyte Esterase 3+ (NEGATIVE) H Urine RBC 20-30 /HPF (0 - 0) H Urine WBC Tntc /HPF (0 - 0) H Urine Squamous Epithelial Cells None /LPF (NONE/OCC) Urine Bacteria Moderate /HPF (NONE) H Sodium Level 143 MMOL/L (136-145) Potassium Level 5.2 MMOL/L (3.5-5.1) H Chloride Level 109 MMOL/L (98-107) H Carbon Dioxide Level 28 MMOL/L (21-32) Anion Gap 6 mmol/L (5-15) Blood Urea Nitrogen 36 mg/dL (7-18) H Creatinine 1.7 MG/DL (0.55-1.30) H Estimat Glomerular Filtration Rate mL/min (>60) Glucose Level 91 MG/DL (74-106) Calcium Level 8.4 MG/DL (8.5-10.1) L Total Bilirubin 0.4 MG/DL (0.2-1.0) Aspartate Amino Transf (AST/SGOT) 27 U/L (15-37) Alanine Aminotransferase (ALT/SGPT) 15 U/L (12-78) Alkaline Phosphatase 111 U/L (46-116) Troponin I 0.049 ng/mL (0.000-0.056) Pro-B-Type Natriuretic Peptide > 75659 pg/mL (0-125) H Total Protein 6.8 G/DL (6.4-8.2) Albumin 2.4 G/DL (3.4-5.0) L Globulin 4.4 g/dL Albumin/Globulin Ratio 0.5 (1.0-2.7) L Lipase 183 U/L (73-393) Hemoglobin A Pending Hemoglobin A2 Pending Hemoglobin C Pending Hemoglobin F () Pending Hemoglobin S Pending Variant Hemoglobin Pending Hemoglobin Electrophoresis Interp Pending Hemoglobin Interpretation Pending Hemoglobin Solubility Pending D-Dimer Pending Microbiology Date/Time Source Procedure Growth Status 01/04/18 15:30 Urine,Clean Catch Urine Culture - Preliminary Gram Negative Bacillus 1 Resulted 01/04/18 18:10 Rectum Received Height (Feet): 5 Height (Inches): 6.00 Weight (Pounds): 186 Medications Current Medications Medications (Trade) Dose Ordered Sig/Saul Route PRN Reason Start Time Stop Time Status Last Admin Dose Admin Carvedilol (Coreg) 3.125 mg EVERY 12 HOURS ORAL 01/05/18 09:00 02/04/18 08:59 01/05/18 09:09 Furosemide (Lasix) 40 mg EVERY 12 HOURS IV 01/05/18 09:00 02/04/18 08:59 01/05/18 09:09 Heparin Sodium/ Dextrose 500 ml @ 23.496 mls/ hr ADJUST PER PROTOCOL IV 01/05/18 08:00 02/04/18 07:59 01/05/18 08:03 Hydralazine HCl (Apresoline) 25 mg EVERY 8 HOURS ORAL 01/05/18 06:00 02/04/18 05:59 01/05/18 06:22 Iopamidol (Isovue-370 150ml) 150 ml NOW PRN INJ Radiology Procedure 01/04/18 16:00 01/06/18 15:50 Lactulose (Cephulac) 30 gm TIDPRN PRN ORAL bm 01/05/18 09:15 02/04/18 09:14 Pantoprazole (Protonix) 40 mg EVERY 12 HOURS ORAL 01/05/18 09:00 02/04/18 08:59 10/10/18 09:09 Rifaximin (Xifaxan) 550 mg EVERY 12 HOURS ORAL 01/05/18 09:15 01/12/18 09:14 Sevelamer Carbonate (Renvela) 800 mg THREE TIMES A DAY ORAL 01/05/18 09:00 02/04/18 08:59 01/05/18 09:09 Assessment/Plan Problem List: (1) CHF (congestive heart failure), NYHA class IV ICD Codes: I50.9 - Heart failure, unspecified SNOMED: 332761814, 880943233 (2) right arm edema (3) Cirrhosis ICD Codes: K74.60 - Unspecified cirrhosis of liver SNOMED: 78057392 (4) CKD (chronic kidney disease) ICD Codes: N18.9 - Chronic kidney disease, unspecified SNOMED: 946053531 (5) Afib ICD Codes: I48.91 - Unspecified atrial fibrillation SNOMED: 01149222 (6) DVT (deep venous thrombosis) ICD Codes: I82.409 - Acute embolism and thrombosis of unspecified deep veins of unspecified lower extremity SNOMED: 663420413 Assessment/Plan CHF class IV - continue cardiac meds - xr consistent with fluid overload - lasix - last echo shows ef 10-25 % , rvsp 70 - cardiology consult Right Arm edema with B/L LE DVT's - repeat echo to evaluate right heart strain that would be consistent with PE - hep gtt can be switched to xarelto - vq scan and CT chest per pulm Afib - HR goal < 100 - anticoagulation Cirrhosis - medical management, no para needed at this time CKD - medical management Iron deficieny anemia and Anemia of Chronic Disease CODE STATUS- DNR DNI Dispo planning - SNF - CM consult Elen Charlton DO Jan 05, 2018 10:07
--- NOTE | 2018-01-05 11:33 | Consultation ---
History of Present Illness General Date patient seen: Jan 05, 2018 Time patient seen: 11:25 Chief Complaint: Abdominal Pain Present Illness HPI 82 year old male with end stage cardiomyopathy, AFIB, cirrhosis, CKD, and AFib, brought in by ambulance from [facility] due to abdominal pain 11/05 and right arm swelling and recent dx with DVT on brachial vein. Allergies: Coded Allergies: No Known Allergies (Unverified , 08/30/17) Medication History Scheduled Allopurinol* (Allopurinol*), 300 MG ORAL DAILY, (Reported) Ampicillin (Ampicillin Trihydrate), 500 ORAL Q12HR, (Reported) Carvedilol (Coreg), 12.5 MG ORAL EVERY 12 HOURS Carvedilol (Coreg), 3.125 MG ORAL EVERY 12 HOURS, (Reported) Fluconazole (Fluconazole), 100 MG ORAL DAILY, (Reported) Furosemide* (Lasix*), 20 MG ORAL DAILY, (Reported) Hydralazine HCl (Hydralazine HCl), 25 MG PO Q8HR, (Reported) Hydralazine Hcl* (Hydralazine Hcl*), 50 MG ORAL EVERY 8 HOURS, (Reported) Isosorbide Mononitrate (Isosorbide Mononitrate Er), 60 MG PO DAILY, (Reported) Lisinopril (Lisinopril*), 5 MG ORAL DAILY, (Reported) Multivitamins* (Multivitamins*), 1 TAB ORAL DAILY Pantoprazole (Pantoprazole), 40 MG ORAL Q12HR, (Reported) Polyethylene Glycol 3350* (Polyethylene Glycol 3350*), 17 GM ORAL DAILY, ( Reported) Rivaroxaban (Xarelto*), 15 MG ORAL HS, (Reported) Sevelamer Carbonate (Renvela), 800 MG ORAL THREE TIMES A DAY, (Reported) Spironolactone (Aldactone), 25 MG ORAL DAILY Thiamine Hcl (Vitamin B1*), 100 MG ORAL DAILY Scheduled PRN Bisacodyl (Bisacodyl), 10 MG RC for Constipation, (Reported) Epoetin Pedro Pablo (Procrit), 20,000 UNIT SUBQ for Per rx protocol, (Reported) Miscellaneous Medications Isosorbide Mononitrate (Isosorbide Mononitrate), 20 MG PO, (Reported) Unable to Obtain Medications (Unable To Obtain Meds), (Reported) Unable to Obtain Medications (Unable To Obtain Meds), (Reported) Patient History Healthcare decision maker Resuscitation status Full Code Advanced Directive on File No Review of Systems Constitutional: Reports: no symptoms Eye: Reports: no symptoms ENT: Reports: no symptoms Respiratory: Reports: no symptoms Cardiovascular: Reports: no symptoms Gastrointestinal: Reports: no symptoms Genitourinary: Reports: no symptoms Musculoskeletal: Reports: no symptoms Skin: Reports: no symptoms Psychiatric: Reports: no symptoms Neurological: Reports: no symptoms Endocrine: Reports: no symptoms Hematologic/Lymphatic: Reports: blood clots, easy bleeding, easy bruising Physical Exam General Appearance: no apparent distress, cachetic Lines, tubes and drains: peripheral, yates cath HEENT: normocephalic, atraumatic Neck: non-tender, normal alignment Respiratory/Chest: chest wall non-tender, lungs clear Cardiovascular/Chest: normal peripheral pulses, normal rate Abdomen: normal bowel sounds, non tender Extremities: normal range of motion, non-tender, normal inspection Skin Exam: cyanotic, jaundice 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, no motor/sensory deficits Last 24 Hour Vital Signs Date Time Temp Pulse Resp B/P (MAP) Pulse Ox O2 Delivery O2 Flow Rate FiO2 01/05/18 09:09 98 124/75 01/05/18 09:06 98 01/05/18 08:00 Nasal Cannula 2.0 01/05/18 08:00 98.5 82 21 124/75 (91) 91 98.5 01/05/18 06:22 126/83 01/05/18 04:00 98.0 96 24 126/83 (97) 99 98.0 01/05/18 04:00 Nasal Cannula 2.0 01/05/18 04:00 101 01/05/18 00:00 109 01/05/18 00:00 Nasal Cannula 2.0 01/05/18 00:00 98.0 99 20 120/73 (89) 99 98.0 01/04/18 22:21 Nasal Cannula 2.0 01/04/18 20:43 98.0 88 16 108/68 97 Room Air 98.1 01/04/18 20:00 98.1 95 20 132/93 (106) 100 98.1 01/04/18 18:00 83 18 110/72 97 Room Air 01/04/18 16:30 85 18 108/69 96 Room Air 10/9/18 14:52 98.1 88 16 118/77 100 Nasal Cannula 2.0 98.1 01/04/18 14:43 98.0 95 18 118/77 100 Nasal Cannula 2.0 98.1 Intake and Output 01/04/18 01/05/18 19:00 07:00 Intake Total 30.209 ml 302.090 ml Output Total 1200 ml Balance 30.209 ml -897.910 ml Intake IV Total 30.209 ml 302.090 ml Output Urine Total 1200 ml # Bowel Movements 1 Laboratory Tests Test 01/04/18 15:30 01/04/18 23:45 01/05/18 05:38 01/05/18 09:55 White Blood Count 4.1 K/UL (4.8-10.8) L Red Blood Count 3.06 M/UL (4.70-6.10) L Hemoglobin 9.2 G/DL (14.2-18.0) L Hematocrit 29.1 % (42.0-52.0) L Mean Corpuscular Volume 95 FL (80-99) Mean Corpuscular Hemoglobin 29.9 PG (27.0-31.0) Mean Corpuscular Hemoglobin Concent 31.4 G/DL (32.0-36.0) L Red Cell Distribution Width 18.3 % (11.6-14.8) H Platelet Count 178 K/UL (150-450) Mean Platelet Volume 7.8 FL (6.5-10.1) Neutrophils (%) (Auto) 56.6 % (45.0-75.0) Lymphocytes (%) (Auto) 25.0 % (20.0-45.0) Monocytes (%) (Auto) 12.0 % (1.0-10.0) H Eosinophils (%) (Auto) 5.0 % (0.0-3.0) H Basophils (%) (Auto) 1.5 % (0.0-2.0) Prothrombin Time 12.5 SEC (9.30-11.50) H Prothromb Time International Ratio 1.2 (0.9-1.1) H Activated Partial Thromboplast Time 33 SEC (23-33) 69 SEC (23-33) H > 150 SEC (23-33) *H Urine Color Pale yellow Urine Appearance Cloudy Urine pH 5 (4.5-8.0) Urine Specific [place] 1.010 (1.005-1.035) Urine Protein 3+ (NEGATIVE) H Urine Glucose (UA) Negative (NEGATIVE) Urine Ketones Negative (NEGATIVE) Urine Blood 5+ (NEGATIVE) H Urine Nitrite Negative (NEGATIVE) Urine Bilirubin Negative (NEGATIVE) Urine Urobilinogen Normal MG/DL (0.0-1.0) Urine Leukocyte Esterase 3+ (NEGATIVE) H Urine RBC 20-30 /HPF (0 - 0) H Urine WBC Tntc /HPF (0 - 0) H Urine Squamous Epithelial Cells None /LPF (NONE/OCC) Urine Bacteria Moderate /HPF (NONE) H Sodium Level 143 MMOL/L (136-145) Potassium Level 5.2 MMOL/L (3.5-5.1) H Chloride Level 109 MMOL/L (98-107) H Carbon Dioxide Level 28 MMOL/L (21-32) Anion Gap 6 mmol/L (5-15) Blood Urea Nitrogen 36 mg/dL (7-18) H Creatinine 1.7 MG/DL (0.55-1.30) H Estimat Glomerular Filtration Rate mL/min (>60) Glucose Level 91 MG/DL (74-106) Calcium Level 8.4 MG/DL (8.5-10.1) L Total Bilirubin 0.4 MG/DL (0.2-1.0) Aspartate Amino Transf (AST/SGOT) 27 U/L (15-37) Alanine Aminotransferase (ALT/SGPT) 15 U/L (12-78) Alkaline Phosphatase 111 U/L (46-116) Troponin I 0.049 ng/mL (0.000-0.056) Pro-B-Type Natriuretic Peptide > 90448 pg/mL (0-125) H Total Protein 6.8 G/DL (6.4-8.2) Albumin 2.4 G/DL (3.4-5.0) L Globulin 4.4 g/dL Albumin/Globulin Ratio 0.5 (1.0-2.7) L Lipase 183 U/L (73-393) Hemoglobin A Pending Hemoglobin A2 Pending Hemoglobin C Pending Hemoglobin F () Pending Hemoglobin S Pending Variant Hemoglobin Pending Hemoglobin Electrophoresis Interp Pending Hemoglobin Interpretation Pending Hemoglobin Solubility Pending D-Dimer 3.88 mg/L FEU (0.00-0.49) H Arterial Blood pH 7.430 (7.350-7.450) Arterial Blood Partial Pressure CO2 42.3 mmHg (35.0-45.0) Arterial Blood Partial Pressure O2 108.5 mmHg (75.0-100.0) H Arterial Blood HCO3 27.4 mmol/L (22.0-26.0) H Arterial Blood Oxygen Saturation 97.7 % (95-100) Arterial Blood Base Excess 2.9 (-2-2) H Mahesh Test Positive Microbiology Date/Time Source Procedure Growth Status 01/04/18 15:30 Urine,Clean Catch Urine Culture - Preliminary Gram Negative Bacillus 1 Resulted 01/04/18 18:10 Rectum Received Height (Feet): 5 Height (Inches): 6.00 Weight (Pounds): 186 Medications Current Medications Medications (Trade) Dose Ordered Sig/Saul Route PRN Reason Start Time Stop Time Status Last Admin Dose Admin Carvedilol (Coreg) 3.125 mg EVERY 12 HOURS ORAL 01/05/18 09:00 02/04/18 08:59 01/05/18 09:09 Furosemide (Lasix) 40 mg EVERY 12 HOURS IV 01/05/18 09:00 02/04/18 08:59 01/05/18 09:09 Heparin Sodium/ Dextrose 500 ml @ 23.496 mls/ hr ADJUST PER PROTOCOL IV 01/05/18 08:00 02/04/18 07:59 01/05/18 08:03 Hydralazine HCl (Apresoline) 25 mg EVERY 8 HOURS ORAL 01/05/18 06:00 02/04/18 05:59 01/05/18 06:22 Iopamidol (Isovue-370 150ml) 150 ml NOW PRN INJ Radiology Procedure 01/04/18 16:00 01/06/18 15:50 Lactulose (Cephulac) 30 gm TIDPRN PRN ORAL bm 01/05/18 09:15 02/04/18 09:14 Pantoprazole (Protonix) 40 mg EVERY 12 HOURS ORAL 01/05/18 09:00 02/04/18 08:59 01/05/18 09:09 Rifaximin (Xifaxan) 550 mg EVERY 12 HOURS ORAL 01/05/18 09:15 01/12/18 09:14 01/05/18 10:03 Sevelamer Carbonate (Renvela) 800 mg THREE TIMES A DAY ORAL 01/05/18 09:00 02/04/18 08:59 01/05/18 09:09 Assessment/Plan Status: stable Assessment/Plan (1) CHF (congestive heart failure), NYHA class IV (2) right arm edema (3) Cirrhosis (4) CKD (chronic kidney disease) (5) Afib (6) DVT (deep venous thrombosis) Systolic dysfunction Previously arranged life vest but patient did not want Continue fluid restriction, NA <2 g/day Lasix/Metolazone to reduce PA pressure and filling pressures Continue goal directed medical therapy: Coreg BID, Hydralazine/Imdur DVT Continue anticoagulation for AFIB and DVT Evaluate for PE per primary Afib No indication for cardioversion or ablation Continue rate control and anticoagulation Cirrhosis Monitor Continue lactulose prn Kieran Cedillo MD Jan 05, 2018 11:33
[2018-01-05 11:42] VITALS: BP 125/76
--- NOTE | 2018-01-05 14:47 | Cardiology Report ---
APPROVED REPORT EXAM: Two-dimensional and M-mode echocardiogram with Doppler and color Doppler. INDICATION Congestive Heart Failure M-Mode DIMENSIONS IVSd1.4 (0.7-1.1cm)Left Atrium (MM)7.0 (1.6-4.0cm) LVDd5.7 (3.5-5.6cm)Aortic Root3.0 (2.0-3.7cm) PWd1.0 (0.7-1.1cm)Aortic Cusp Exc.2.2 (1.5-2.0cm) LVDs5.3 (2.5-4.0cm) PWs1.2 cm Mild left ventricular enlargement. Severe global left ventricular hypokinesis. Left ventricular ejection fraction estimated to be 10 %. Mild left ventricular hypertrophy. Large pleural effusion. Trivial pericardial effusion. Severe bi-atrial enlargement. Moderate right ventricular enlargement. Mild focal aortic valve sclerosis with adequate cusp excursion. Mildly thickened mitral valve leaflets with normal excursion. Mild mitral annulus and aortic root calcification. Normal pulmonic valve structure. Normal tricuspid valve structure. IVC dilated at 3.2 cm without physiological collapse, estimated RAP is 20 mmHg. A color flow and spectral Doppler study was performed and revealed: Moderate aortic insufficiency. Severe mitral regurgitation. Left ventricular diastolic function could not be determined due to A-Fib. Severe tricuspid regurgitation. Tricuspid systolic velocities suggests peak right ventricular systolic pressure of 64 mmHg, consistent with severe pulmonary hypertension. Mild pulmonic regurgitation present.
--- NOTE | 2018-01-05 15:03 | Diagnostic Imaging Report ---
APPROVED REPORT CPT Code: 56232 Present Symptoms Comments: RIGHT ARM PAIN AND SWELLING. RIGHT UPPER EXTREMITY: Imaging reveals acute thrombus in the brachial vein at upper arm level. Imaging also reveals patency of the internal jugular, subclavian, and axillary veins. The cephalic and basilic veins are within normal limits.
--- NOTE | 2018-01-05 15:03 | Diagnostic Imaging Report ---
APPROVED REPORT CPT Code: 51469 Present Symptoms Comments: BILATERAL LEGS SWELLING. RIGHT LEG: Venous imaging reveals acute thrombus in the calf vein (anterior tibial). Imaging also reveals patency of the common femoral, popliteal and calf veins (posterior tibial and peroneal). The greater saphenous vein is within normal limits. LEFT LEG: Venous imaging reveals acute thrombus in the calf vein (anterior tibial). Imaging also reveals patency of the common femoral, popliteal and calf veins (posterior tibial and peroneal). The greater saphenous vein is within normal limits.
[2018-01-05] MEDS ORDERED: Heparin 5000 units/ml inj IV SCH (15:17)
--- NOTE | 2018-01-05 15:18 | Diagnostic Imaging Report ---
Indication: Shortness of breath Technique: Continuous helical transaxial imaging of the chest was obtained from the thoracic inlet to the upper abdomen. No intravenous contrast was administered. Coronal 2-D reformats were also obtained. Total Dose length Product (DLP): [address] Dose Index Volume (CTDIvol): 0.1, 24.86 mGy Comparison: none Findings: Study is limited by the nonadministration of contrast material. There are moderate bilateral pleural effusions present. There is generalized cardiomegaly. The intraventricular attenuation is less than the attenuation of the wall of the heart for example the interventricular septum. This is a sign of anemia. The central pulmonary veins are somewhat prominent. There is posterior basal atelectasis. There is no interstitial edema definitely seen. Mild generalized anasarca and cachexia noted. Ascites demonstrated moderate in degree. Kidneys appear atrophic. Questionable presence of the gallbladder. Mild calcification of aorta demonstrated. Dense calcification within the lower pole the left kidney demonstrated. Impression: Moderate bilateral pleural effusions. Associated mild basal atelectasis. Moderate generalized cardiomegaly with prominent central pulmonary veins. No evidence of interstitial edema. No evidence of airspace disease. Moderate ascites. Anasarca. Cachexia Atherosclerotic disease. Suggestion of multiple cysts within the kidneys which appear atrophic bilaterally. Nonobstructive stone in the lower pole the left kidney. The CT scanner at [facility] is accredited by the [employer] and the scans are performed using dose optimization techniques as appropriate to a performed exam including Automatic Exposure control.
[2018-01-05] MEDS ORDERED: traMADol 50mg tab ORAL SCH (15:44)
[2018-01-05] MEDS ORDERED: Simethicone 80mg tab ORAL SCH (15:45)
[2018-01-05 16:00] VITALS: BP 126/76
[2018-01-05] MEDS ORDERED: Isovue-370 150ml vial INJ PRN (17:00)
[2018-01-05 20:00] VITALS: BP 118/83
--- NOTE | 2018-01-05 20:00 | Consultation ---
DATE OF CONSULTATION: 01/05/2018 PULMONARY CONSULTATION CONSULTING PHYSICIAN: Sanford Amin M.D. REFERRING PHYSICIAN: REASON FOR CONSULTATION: DVT and PE. HISTORY OF PRESENT ILLNESS: The patient is an 82-year-old male with a history of congestive heart failure with ischemic cardiomyopathy, CAD, atrial fibrillation, cirrhosis, recently discharged from the hospital on 12/01/2017 after being admitted with atrial fibrillation with RVR. Prior to admission medications include Xarelto. It is unclear whether he is taking Xarelto or not. Nonetheless, he presented to the emergency department overnight after newly diagnosed DVT of the right arm with worsening lower extremity edema, right arm swelling, and shortness of breath. Shortness of breath has been going on for 3 weeks. He has dyspnea with even minimal exertion. He has had paracentesis for his recurrent cirrhosis lately. He denies any cough, wheezing, or hemoptysis. Denies any fevers or chills. Chest x-ray showed pulmonary vascular congestion and bilateral effusions. The patient has been started on a heparin drip and admitted to the [facility] unit for diuresis and anticoagulation. Given his chronic kidney disease, CT angio was not done. PAST MEDICAL HISTORY: 1. Congestive heart failure with ischemic cardiomyopathy. 2. Atrial fibrillation. 3. CKD. 4. Cirrhosis. 5. Hepatorenal syndrome. 6. DVT. 7. Leukopenia. 8. Anemia. ALLERGIES: No known drug allergies. MEDICATIONS: Prior to admission medications reviewed. Current medications reviewed. SOCIAL HISTORY: The patient is a former smoker. Denies drug or alcohol use. FAMILY HISTORY: Noncontributory. REVIEW OF SYSTEMS: Negative other than history of present illness. PHYSICAL EXAMINATION: VITAL SIGNS: Temperature 98.5, pulse 82, blood pressure 124/75, respiratory rate 25, saturating 91% on two liters. GENERAL: He is a elderly male, in no acute distress. Awake, alert, and oriented x3. HEENT: Normocephalic and atraumatic. Oropharynx is clear with moist mucous membranes. NECK: Supple without lymphadenopathy. He has JVP of 8 cm. CHEST: Clear with bibasilar rales. HEART: There is a prominent P2, otherwise regular rate and rhythm. ABDOMEN: Soft, nontender, and nondistended. EXTREMITIES: No cyanosis, clubbing. There is 2+ edema. LABORATORY AND DIAGNOSTIC DATA: White count 4.1, hemoglobin 9.2, and platelet count 178. INR 1.2. D-dimer is pending. APTT greater than 150. Sodium 142, potassium 5.2, chloride 109, bicarb 28, BUN 36, creatinine 1.7, glucose 91, calcium 8.4. Total bilirubin 0.4, AST 27, ALT 15 and alkaline phosphatase 111. BNP greater than 35,000. Troponin 0.049. Albumin 2.4. Globulin 4.4. Urinalysis 5+ blood 3+ leukocyte esterase, moderate bacteria, gram-negative bacillus noted in the urine. Imaging, chest x-ray reviewed by myself shows of partially loculated right-sided effusion, pulmonary vascular congestion, bilaterally. No infiltrates or other abnormalities. Echocardiogram from October 08, 2017 shows an LVEF of 10 to 15% with global left ventricular akinesia. ASSESSMENT: The patient is an 82-year-old male care home resident with a history of congestive heart failure with severe systolic dysfunction, ischemic cardiomyopathy, atrial fibrillation, CKD, cirrhosis, hepatorenal syndrome, prior DVT, presenting with lower extremity DVT and upper extremity DVT in the setting of anticoagulation. It is unclear if he has a PE or not as his shortness of breath may be secondary to decompensated heart failure. Nonetheless, he needs to be anticoagulated and given his abnormal renal function I would not get a CT angio of the chest. PROBLEM LIST: 1. Bilateral lower extremity and right upper extremity DVT. 2. Possible PE. 3. Congestive heart failure with severe systolic dysfunction (ejection fraction 10 to 15 %) and acute decompensated heart failure. 4. Atrial fibrillation. 5. CKD. 6. Cirrhosis. 7. Hepatorenal syndrome. 8. Gram-negative bacillus urinary tract infection. 9. Leukopenia. 10. Anemia. TREATMENT PLAN: 1. Continue IV unfractionated heparin. 2. Discussed with Dr. Hoffmann, we need to determine if the patient was on Xarelto before because it so this would be consider Xarelto failure and I would likely discharge him on vitamin K antagonist. 3. I would hold off on CT angio of the chest given abnormal renal function. 4. Follow up ventilation/perfusion scan. 5. Follow up echocardiogram. 6. Monitor volumes and renal function, diuresis as tolerated. 7. Consider paracentesis. 8. Aspiration precautions. 9. DVT prophylaxis. The patient is on anticoagulation. Dr. thank you for allowing me to assist in the care of your patient. If I may be of any assistance in the future, please do not hesitate to ask Sanford Amin M.D. DR: Marie JOB#: [id number] CC:
--- NOTE | 2018-01-05 23:12 | Consultation ---
History of Present Illness General Chief Complaint: Abdominal Pain Present Illness HPI 82-year-old male with a history of alcohol dependence anxiety congestive heart failure with ischemic cardiomyopathy, CAD, atrial fibrillation, cirrhosis. the pt is well know to me. the pt has hx of anxiety and alcohol use.t he pt has been in remission for several yrs. the pt is having low energy, anxiety and insomnia. the pt was alert and oriented. Allergies: Coded Allergies: No Known Allergies (Unverified , 08/30/17) Medication History Scheduled Allopurinol* (Allopurinol*), 300 MG ORAL DAILY, (Reported) Ampicillin (Ampicillin Trihydrate), 500 ORAL Q12HR, (Reported) Carvedilol (Coreg), 12.5 MG ORAL EVERY 12 HOURS Carvedilol (Coreg), 3.125 MG ORAL EVERY 12 HOURS, (Reported) Fluconazole (Fluconazole), 100 MG ORAL DAILY, (Reported) Furosemide* (Lasix*), 20 MG ORAL DAILY, (Reported) Hydralazine HCl (Hydralazine HCl), 25 MG PO Q8HR, (Reported) Hydralazine Hcl* (Hydralazine Hcl*), 50 MG ORAL EVERY 8 HOURS, (Reported) Isosorbide Mononitrate (Isosorbide Mononitrate Er), 60 MG PO DAILY, (Reported) Lisinopril (Lisinopril*), 5 MG ORAL DAILY, (Reported) Multivitamins* (Multivitamins*), 1 TAB ORAL DAILY Pantoprazole (Pantoprazole), 40 MG ORAL Q12HR, (Reported) Polyethylene Glycol 3350* (Polyethylene Glycol 3350*), 17 GM ORAL DAILY, ( Reported) Rivaroxaban (Xarelto*), 15 MG ORAL HS, (Reported) Sevelamer Carbonate (Renvela), 800 MG ORAL THREE TIMES A DAY, (Reported) Spironolactone (Aldactone), 25 MG ORAL DAILY Thiamine Hcl (Vitamin B1*), 100 MG ORAL DAILY Scheduled PRN Bisacodyl (Bisacodyl), 10 MG RC for Constipation, (Reported) Epoetin Pedro Pablo (Procrit), 20,000 UNIT SUBQ for Per rx protocol, (Reported) Miscellaneous Medications Isosorbide Mononitrate (Isosorbide Mononitrate), 20 MG PO, (Reported) Unable to Obtain Medications (Unable To Obtain Meds), (Reported) Unable to Obtain Medications (Unable To Obtain Meds), (Reported) Patient History Limited by: medical condition History Provided By: Patient, Medical Record, PMD Healthcare decision maker Resuscitation status Full Code Advanced Directive on File No Past Medical/Surgical History Past Medical/Surgical History: (1) Anemia (2) Iron deficiency (3) Systolic and diastolic CHF, acute (4) Hepatic encephalopathy (5) Hypotension (6) 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 hypertension (7) Severe mitral regurgitation (8) Coagulopathy (9) Diarrhea (10) Leukopenia (11) Renal cyst (12) Ventricular tachycardia (13) Atrial fibrillation with RVR (14) Atrial fibrillation with RVR (15) Hepatorenal syndrome (16) Renal insufficiency (17) UTI (urinary tract infection) (18) CHF exacerbation (19) Cirrhosis (20) DVT (deep venous thrombosis) (21) CKD (chronic kidney disease) (22) Acute on chronic renal failure (23) Afib (24) Acute exacerbation of CHF (congestive heart failure) (25) right arm edema (26) CHF (congestive heart failure), NYHA class IV Review of Systems Psychiatric: Reports: prior hx, anxiety Physical Exam General Appearance: no apparent distress, alert Neurologic: oriented x 3, responsive, depressed affect Last 24 Hour Vital Signs Date Time Temp Pulse Resp B/P (MAP) Pulse Ox O2 Delivery O2 Flow Rate FiO2 01/05/18 21:08 118/83 01/05/18 20:37 103 118/83 01/05/18 20:00 98.0 103 20 118/83 (95) 99 98.0 01/05/18 16:00 98 01/05/18 16:00 97.7 101 20 126/76 (93) 98 97.7 01/05/18 16:00 Nasal Cannula 2.0 01/05/18 13:01 125/76 01/05/18 12:00 Nasal Cannula 2.0 01/05/18 12:00 90 01/05/18 11:42 97.6 103 20 125/76 (92) 100 97.6 01/05/18 09:09 98 124/75 01/05/18 09:06 98 01/05/18 08:00 Nasal Cannula 2.0 01/05/18 08:00 98.5 82 21 124/75 (91) 91 98.5 01/05/18 06:22 126/83 01/05/18 04:00 98.0 96 24 126/83 (97) 99 98.0 01/05/18 04:00 Nasal Cannula 2.0 01/05/18 04:00 101 01/05/18 00:00 109 01/05/18 00:00 Nasal Cannula 2.0 01/05/18 00:00 98.0 99 20 120/73 (89) 99 98.0 Intake and Output 01/04/18 01/05/18 19:00 07:00 Intake Total 30.209 ml 302.090 ml Output Total 1200 ml Balance 30.209 ml -897.910 ml IV Total 30.209 ml 302.090 ml Output Urine Total 1200 ml # Bowel Movements 1 Laboratory Tests Test 01/04/18 23:45 01/05/18 05:38 01/05/18 09:55 01/05/18 14:25 Activated Partial Thromboplast Time 69 SEC (23-33) H > 150 SEC (23-33) *H 61 SEC (23-33) H Hemoglobin A Pending Hemoglobin A2 Pending Hemoglobin C Pending Hemoglobin F () Pending Hemoglobin S Pending Variant Hemoglobin Pending Hemoglobin Electrophoresis Interp Pending Hemoglobin Interpretation Pending Hemoglobin Solubility Pending D-Dimer 3.88 mg/L FEU (0.00-0.49) H Arterial Blood pH 7.430 (7.350-7.450) Arterial Blood Partial Pressure CO2 42.3 mmHg (35.0-45.0) Arterial Blood Partial Pressure O2 108.5 mmHg (75.0-100.0) H Arterial Blood HCO3 27.4 mmol/L (22.0-26.0) H Arterial Blood Oxygen Saturation 97.7 % (95-100) Arterial Blood Base Excess 2.9 (-2-2) H Mahesh Test Positive Test 01/05/18 21:25 Activated Partial Thromboplast Time > 150 SEC (23-33) *H Height (Feet): 5 Height (Inches): 6.00 Weight (Pounds): 186 Medications Current Medications Medications (Trade) Dose Ordered Sig/Saul Route PRN Reason Start Time Stop Time Status Last Admin Dose Admin Acetaminophen (Tylenol) 650 mg Q6H PRN ORAL Mild Pain/Temp > 100.5 01/05/18 16:56 02/04/18 16:55 Carvedilol (Coreg) 3.125 mg EVERY 12 HOURS ORAL 01/05/18 21:00 02/04/18 08:59 01/05/18 20:37 Furosemide (Lasix) 40 mg EVERY 12 HOURS IV 01/05/18 21:00 02/04/18 08:59 01/05/18 20:38 Heparin Sodium/ Dextrose 500 ml @ 20.16 mls/ hr ADJUST PER PROTOCOL IV 01/06/18 00:00 02/04/18 00:00 Hydralazine HCl (Apresoline) 25 mg EVERY 8 HOURS ORAL 01/05/18 22:00 02/04/18 05:59 01/05/18 21:08 Iopamidol (Isovue-370 150ml) 150 ml NOW PRN INJ Radiology Procedure 01/05/18 17:00 01/06/18 15:50 Isosorbide Mononitrate (Imdur) 30 mg DAILY ORAL 01/06/18 09:00 02/05/18 08:59 Lactulose (Cephulac) 30 gm TIDPRN PRN ORAL bm 01/06/18 09:15 02/04/18 09:14 Metolazone (Zaroxolyn) 2.5 mg DAILY ORAL 01/06/18 09:00 02/05/18 08:59 Pantoprazole (Protonix) 40 mg EVERY 12 HOURS ORAL 01/05/18 21:00 02/04/18 08:59 01/05/18 20:37 Rifaximin (Xifaxan) 550 mg EVERY 12 HOURS ORAL 01/05/18 21:00 01/12/18 09:14 01/05/18 20:37 Sevelamer Carbonate (Renvela) 800 mg THREE TIMES A DAY ORAL 01/05/18 18:00 02/04/18 08:59 01/05/18 17:29 Assessment/Plan Status: stable Assessment/Plan Alcohol dependence in remission alcoholic cirrhosis anxiety insomnia temazepam 15mg qhs prn metabolizes thru renal Ziyad Taylor MD Jan 05, 2018 23:12
[2018-01-06] VITALS: BP 129/85
[2018-01-06] MEDS ORDERED: Heparin 25,000u/D5W 500ml 500 ML IV SCH
[2018-01-06 04:00] VITALS: BP 117/72
[2018-01-06] MEDS: HydrALAZINE 25mg tab ORAL SCH ×4 (05:14→21:03)
[2018-01-06] MEDS: Heparin 25,000u/D5W 500ml 500 ML IV SCH ×2 (06:46→21:01)
[2018-01-06 08:00] VITALS: BP 120/66
[2018-01-06] MEDS: metOLazone 2.5 MG TAB ORAL SCH (08:22)
[2018-01-06] MEDS: Imdur 30mg tab ORAL SCH (08:25)
[2018-01-06] MEDS ORDERED: Imdur 30mg tab ORAL SCH (09:00)
[2018-01-06] MEDS ORDERED: metOLazone 2.5 MG TAB ORAL SCH (09:00)
[2018-01-06] MEDS ORDERED: Lactulose 20gm/30ml UDC ORAL PRN (09:15)
--- NOTE | 2018-01-06 10:45 | General Progress Note ---
Assessment/Plan Problem List: (1) CHF (congestive heart failure), NYHA class IV ICD Codes: I50.9 - Heart failure, unspecified SNOMED: 796038085, 400498054 (2) right arm edema (3) Cirrhosis ICD Codes: K74.60 - Unspecified cirrhosis of liver SNOMED: 07618329 (4) CKD (chronic kidney disease) ICD Codes: N18.9 - Chronic kidney disease, unspecified SNOMED: 668320802 (5) Afib ICD Codes: I48.91 - Unspecified atrial fibrillation SNOMED: 11104354 (6) DVT (deep venous thrombosis) ICD Codes: I82.409 - Acute embolism and thrombosis of unspecified deep veins of unspecified lower extremity SNOMED: 453016666 Assessment/Plan CHF class IV - continue cardiac meds - xr consistent with fluid overload - lasix - last echo shows ef 10-25 % , rvsp 70 - cardiology consult Right Arm edema with B/L LE DVT's - repeat echo to evaluate right heart strain that would be consistent with PE - currently on hep gtt, called [facility] and was notified that patient was NOT on anticoagulation prior to admission, will discuss choice of anticoagulation on dc with heme - vq scan and CT chest per pulm Afib - HR goal < 100 - anticoagulation Cirrhosis - medical management, no para needed at this time CKD - medical management Iron deficieny anemia and Anemia of Chronic Disease CODE STATUS- DNR DNI Dispo planning - SNF - CM consult Subjective Date patient seen: Jan 06, 2018 Time patient seen: 09:00 Allergies: Coded Allergies: No Known Allergies (Unverified , 08/30/17) All Systems: reviewed and negative except above Objective Last 24 Hour Vital Signs Date Time Temp Pulse Resp B/P (MAP) Pulse Ox O2 Delivery O2 Flow Rate FiO2 01/06/18 09:00 Nasal Cannula 2.0 01/06/18 08:25 110/66 01/06/18 08:25 91 110/66 01/06/18 08:00 97.9 91 19 120/66 (84) 98 97.9 01/06/18 05:14 117/72 01/06/18 04:00 103 01/06/18 04:00 98.7 95 20 117/72 (87) 96 98.7 01/06/18 00:00 98.0 87 21 129/85 (100) 98 98.0 01/06/18 00:00 102 01/05/18 21:08 118/83 01/05/18 21:00 Nasal Cannula 2.0 01/05/18 20:37 103 118/83 01/05/18 20:00 98 01/05/18 20:00 98.0 103 20 118/83 (95) 99 98.0 01/05/18 16:00 98 01/05/18 16:00 97.7 101 20 126/76 (93) 98 97.7 01/05/18 16:00 Nasal Cannula 2.0 01/05/18 13:01 125/76 01/05/18 12:00 Nasal Cannula 2.0 01/05/18 12:00 90 01/05/18 11:42 97.6 103 20 125/76 (92) 100 97.6 Intake and Output 01/05/18 01/06/18 19:00 07:00 Intake Total 751.352 ml 225.44 ml Output Total 900 ml 200 ml Balance -148.648 ml 25.44 ml Intake Oral 560 ml IV Total 191.352 ml 225.44 ml Output Urine Total 900 ml 200 ml # Bowel Movements 2 Laboratory Tests 01/05/18 14:25: Activated Partial Thromboplast Time 61H 01/05/18 21:25: Activated Partial Thromboplast Time > 150*H 01/06/18 05:50: Activated Partial Thromboplast Time 105H Height (Feet): 5 Height (Inches): 6.00 Weight (Pounds): 186 General Appearance: WD/WN, no apparent distress, alert, lethargic, confused, mild distress EENT: PERRL/EOMI, normal ENT inspection, TMs normal, pharynx normal Neck: non-tender, normal alignment, supple, normal inspection Cardiovascular: normal rate, regular rhythm, regularly irregular, no gallop/ murmur, no JVD Respiratory/Chest: chest wall non-tender, crackles/rales - minimal crackles , worse on right than left Abdomen: normal bowel sounds, non tender, soft Extremities: other - anasarca, rue edema Neurologic: director business travel II-XII grossly normal, oriented x 3 Elen Charlton DO Jan 06, 2018 10:45
--- NOTE | 2018-01-06 10:53 | General Progress Note ---
Assessment/Plan Assessment/Plan Assessment/Plan: #. Right arm dvt along with bilateral dvt of the lower extremity DVT with progression on xarelto (though after review of further info does not appear to have been on anticoagulation when received right arm dvt) --> currently is on a heparin gtt --> likely will need transition to coumadin as has progressed on xarelto --> eval for PE as necessary with either v/q scan --> will trend cbc and okay to start coumadin inr goal 2-3 #. 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 Hepatitis and human immunodeficiency virus are negative --> Counts in line with historical values over time, continues to persist --> Ultrasound of the abdomen from last admission showed cirrhosis/HSM --> Tumor markers reviewed and are negative from before. --> Likely leukopenia secondary to splenomegaly. Give neupogen if ANC <1000 --> s/p paracentesis, 11/22: S/P paracentesis, yielding 5.9L of fluid. cytology though in prior was negative #. Anemia due to underlying chronic disease, appears to be stable. --> anemia w/u if hgb worsens, consider transfusion prn --> Current Hgb of 8.6, stable. #. Coagulopathy, likely related to underlying cirrhosis of the liver. --> Vit K prn basis, given by GI #. Hyperkalemia, given Kayexalate, currently has improved. #. Biventricular failure with severe pulmonary hypertension. The patient has seen by Cardiology. #. Ascites --> S/P paracentesis, yielding 5.9 liters of fluid, 11/26 --> may need to repeat prn The time the note was entered does not necessarily correspond to the time the patient was seen. Subjective Constitutional: Denies: no symptoms, chills, diaphoresis, fever, malaise, weakness, other HEENT: Denies: no symptoms, eye pain, blurred vision, tearing, double vision, ear pain, ear discharge, nose pain, nose congestion, throat pain, throat swelling, mouth pain, mouth swelling, other Cardiovascular: Denies: no symptoms, chest pain, edema, irregular heart rate, lightheadedness, palpitations, syncope, other Respiratory: Denies: no symptoms, cough, orthopnea, shortness of breath, SOB with excertion, SOB at rest, sputum, stridor, wheezing, other Gastrointestinal/Abdominal: Denies: no symptoms, abdomen distended, abdominal pain, black stools, tarry stools, blood in stool, constipated, diarrhea, difficulty swallowing, nausea, poor appetite, poor fluid intake, rectal bleeding , vomiting, other Genitourinary: Denies: no symptoms, burning, discharge, frequency, flank pain, hematuria, incontinence, pain, urgency, other Neurologic/Psychiatric: Denies: no symptoms, anxiety, depressed, emotional problems, headache, numbness, paresthesia, pre-existing deficit, seizure, tingling, tremors, weakness, other Endocrine: Denies: no symptoms, excessive sweating, flushing, intolerance to cold, intolerance to heat, increased hunger, increased thirst, increased urine, unexplained weight gain, unexplained weight loss, other Allergies: Coded Allergies: No Known Allergies (Unverified , 08/30/17) Subjective on heparin gtt, on coumdin started Objective Last 24 Hour Vital Signs Date Time Temp Pulse Resp B/P (MAP) Pulse Ox O2 Delivery O2 Flow Rate FiO2 01/06/18 09:00 Nasal Cannula 2.0 01/06/18 08:25 110/66 01/06/18 08:25 91 110/66 01/06/18 08:00 97.9 91 19 120/66 (84) 98 97.9 01/06/18 05:14 117/72 01/06/18 04:00 103 01/06/18 04:00 98.7 95 20 117/72 (87) 96 98.7 01/06/18 00:00 98.0 87 21 129/85 (100) 98 98.0 01/06/18 00:00 102 01/05/18 21:08 118/83 01/05/18 21:00 Nasal Cannula 2.0 01/05/18 20:37 103 118/83 01/05/18 20:00 98 01/05/18 20:00 98.0 103 20 118/83 (95) 99 98.0 01/05/18 16:00 98 01/05/18 16:00 97.7 101 20 126/76 (93) 98 97.7 01/05/18 16:00 Nasal Cannula 2.0 01/05/18 13:01 125/76 01/05/18 12:00 Nasal Cannula 2.0 01/05/18 12:00 90 01/05/18 11:42 97.6 103 20 125/76 (92) 100 97.6 Intake and Output 01/05/18 01/06/18 19:00 07:00 Intake Total 751.352 ml 225.44 ml Output Total 900 ml 200 ml Balance -148.648 ml 25.44 ml Intake Oral 560 ml IV Total 191.352 ml 225.44 ml Output Urine Total 900 ml 200 ml # Bowel Movements 2 Laboratory Tests 01/05/18 14:25: Activated Partial Thromboplast Time 61H 01/05/18 21:25: Activated Partial Thromboplast Time > 150*H 01/06/18 05:50: Activated Partial Thromboplast Time 105H Height (Feet): 5 Height (Inches): 6.00 Weight (Pounds): 186 General Appearance: no apparent distress EENT: normal ENT inspection Neck: normal alignment Cardiovascular: normal rate Respiratory/Chest: lungs clear Abdomen: non tender Extremities: non-tender Edema: 1+ Leg (L), 1+ Leg (R) Edema: mild edema Neurologic: oriented x 3 Skin: warm/dry Objective petoichae is ntoed throughout Christiano Hoffmann MD Jan 06, 2018 10:53
[2018-01-06 12:00] VITALS: BP 117/93
--- NOTE | 2018-01-06 12:49 | Cardiology Progress Note ---
Assessment/Plan Status: stable Assessment/Plan (1) CHF (congestive heart failure), NYHA class IV (2) right arm edema (3) Cirrhosis (4) CKD (chronic kidney disease) (5) Afib (6) DVT (deep venous thrombosis) Systolic dysfunction Previously arranged life vest but patient did not want Continue fluid restriction, NA <2 g/day Lasix/Metolazone to reduce PA pressure and filling pressures Continue goal directed medical therapy: Coreg BID, Hydralazine/Imdur DVT Continue anticoagulation for AFIB and DVT -> Heparin/coumadin Evaluate for PE per primary - V/Q scan ordered but patient can not lay flat, CTA not done due to renal function Afib No indication for cardioversion or ablation Continue rate control and anticoagulation -> coumadin Cirrhosis Monitor Continue lactulose prn Consider paracentesis Pleural effusion Continue diuresis May need thoracentesis Poor prognosis, consider hospice Subjective Cardiovascular: Reports: no symptoms Respiratory: Reports: no symptoms Gastrointestinal/Abdominal: Reports: no symptoms Genitourinary: Reports: no symptoms Subjective NO acute events, patient could not lay flat for V/Q scan, on heparin gtt for hx of DVT. Echo with end stage cardiomyopathy, vitals stable Objective Last 24 Hour Vital Signs Date Time Temp Pulse Resp B/P (MAP) Pulse Ox O2 Delivery O2 Flow Rate FiO2 01/06/18 12:00 97.4 87 20 117/93 (101) 99 97.4 01/06/18 09:00 Nasal Cannula 2.0 01/06/18 08:25 110/66 01/06/18 08:25 91 110/66 01/06/18 08:00 97.9 91 19 120/66 (84) 98 97.9 01/06/18 05:14 117/72 01/06/18 04:00 103 01/06/18 04:00 98.7 95 20 117/72 (87) 96 98.7 01/06/18 00:00 98.0 87 21 129/85 (100) 98 98.0 01/06/18 00:00 102 01/05/18 21:08 118/83 01/05/18 21:00 Nasal Cannula 2.0 01/05/18 20:37 103 118/83 01/05/18 20:00 98 01/05/18 20:00 98.0 103 20 118/83 (95) 99 98.0 01/05/18 16:00 98 01/05/18 16:00 97.7 101 20 126/76 (93) 98 97.7 01/05/18 16:00 Nasal Cannula 2.0 01/05/18 13:01 125/76 General Appearance: no apparent distress, alert EENT: PERRL/EOMI, scleral icterus, pale conjunctivae Neck: non-tender, normal alignment, JVD Rhythm: Afib Cardiovascular: normal peripheral pulses, normal rate, diastolic murmur, systolic murmur, gallop/S3, gallop/S4 Respiratory/Chest: chest wall non-tender, decreased breath sounds, accessory muscle use, crackles/rales, rhonchi - bilaterally Abdomen: non tender, hypoactive bowel sounds, distended, guarding, rebound, hepatomegaly, splenomegaly Extremities: normal range of motion, non-pitting Neurologic: tester electronic scale II-XII grossly normal, no motor/sensory deficits, oriented x 3 Intake and Output 01/05/18 01/06/18 19:00 07:00 Intake Total 751.352 ml 225.44 ml Output Total 900 ml 200 ml Balance -148.648 ml 25.44 ml Intake Oral 560 ml IV Total 191.352 ml 225.44 ml Output Urine Total 900 ml 200 ml # Bowel Movements 2 Laboratory Tests Test 01/05/18 14:25 01/05/18 21:25 01/06/18 05:50 Activated Partial Thromboplast Time 61 SEC (23-33) H > 150 SEC (23-33) *H 105 SEC (23-33) H Microbiology Date/Time Source Procedure Growth Status 01/04/18 15:30 Urine,Clean Catch Urine Culture - Final Enterobacter Cloacae Complex Complete 01/04/18 18:10 Rectum Received Kieran Cedillo MD Jan 06, 2018 12:49
[2018-01-06 14:31] LABS: BASOPHILS % (AUTO) 1.2 % (0.0-2.0); EOSINOPHILS % (AUTO) 4.7 % (0.0-3.0); HEMATOCRIT 28.4 % (42.0-52.0); HEMOGLOBIN 8.6 G/DL (14.2-18.0); MEAN CORPUSCULAR VOLUME 93 FL (80-99); NEUTROPHILS % (AUTO) 59.1 % (45.0-75.0); PLATELET COUNT 182 K/UL (150-450); RED BLOOD COUNT 3.05 M/UL (4.70-6.10); WHITE BLOOD COUNT 4.2 K/UL (4.8-10.8)
[2018-01-06 14:39] LABS: ANION GAP 8 mmol/L (5-15); BLOOD UREA NITROGEN 38 mg/dL (7-18); CALCIUM 7.8 MG/DL (8.5-10.1); CARBON DIOXIDE 26 MMOL/L (21-32); CHLORIDE 106 MMOL/L (98-107); CREATININE 1.8 MG/DL (0.55-1.30); SODIUM 140 MMOL/L (136-145)
[2018-01-06 16:00] VITALS: BP 121/86
--- NOTE | 2018-01-06 16:45 | Pulmonology Progress Note ---
Assessment/Plan Problems: (1) CHF (congestive heart failure), NYHA class IV (2) CHF exacerbation (3) Systolic and diastolic CHF, acute (4) 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 hypertension (5) Severe mitral regurgitation (6) Afib (7) right arm edema (8) DVT (deep venous thrombosis) Assessment/Plan ASSESSMENT: The patient is an 82-year-old male [facility] resident with a history of congestive heart failure with severe systolic dysfunction, ischemic cardiomyopathy, atrial fibrillation, CKD, cirrhosis, hepatorenal syndrome, prior DVT, presenting with lower extremity DVT and upper extremity DVT in the setting of anticoagulation. It is unclear if he has a PE or not as his shortness of breath may be secondary to decompensated heart failure. Nonetheless, he needs to be anticoagulated and given his abnormal renal function I would not get a CT angio of the chest. PROBLEM LIST: 1. Bilateral lower extremity and right upper extremity DVT. 2. Possible PE. 3. Congestive heart failure with severe systolic dysfunction (ejection fraction 10 to 15 %) and acute decompensated heart failure. 4. Atrial fibrillation. 5. CKD. 6. Cirrhosis. 7. Hepatorenal syndrome. 8. Gram-negative bacillus urinary tract infection. 9. Leukopenia. 10. Anemia. 11. Enterobacter bacteremia TREATMENT PLAN: 1. Continue IV unfractionated heparin. 2. Will D/W heme Re transitioning to oral A/C, unclear if Xarelto failure 3. No needs for CT angio or further PE w/u as patient already on A/C for PE 4. Monitor volumes and renal function, diuresis as tolerated. 5. Aspiration precautions. 6. Medical management of CHF per cards, declines life vest 7. DVT prophylaxis. The patient is on anticoagulation. Subjective Allergies: Coded Allergies: No Known Allergies (Unverified , 08/30/17) Subjective AFVSS, stable O2 needs, natalie AC CT chest suggestive of HF, VQ not done Slightly less SOB, no cough, no CP, + KENNY Objective Last 24 Hour Vital Signs Date Time Temp Pulse Resp B/P (MAP) Pulse Ox O2 Delivery O2 Flow Rate FiO2 01/06/18 13:27 117/93 01/06/18 12:00 97.4 87 20 117/93 (101) 99 97.4 01/06/18 09:00 Nasal Cannula 2.0 01/06/18 08:25 110/66 01/06/18 08:25 91 110/66 01/06/18 08:00 97.9 91 19 120/66 (84) 98 97.9 01/06/18 05:14 117/72 01/06/18 04:00 103 01/06/18 04:00 98.7 95 20 117/72 (87) 96 98.7 01/06/18 00:00 98.0 87 21 129/85 (100) 98 98.0 01/06/18 00:00 102 01/05/18 21:08 118/83 01/05/18 21:00 Nasal Cannula 2.0 01/05/18 20:37 103 118/83 01/05/18 20:00 98 01/05/18 20:00 98.0 103 20 118/83 (95) 99 98.0 Intake and Output 01/05/18 01/06/18 19:00 07:00 Intake Total 751.352 ml 225.44 ml Output Total 900 ml 200 ml Balance -148.648 ml 25.44 ml Intake Oral 560 ml IV Total 191.352 ml 225.44 ml Output Urine Total 900 ml 200 ml # Bowel Movements 2 General Appearance: WD/WN, no acute distress HEENT: normocephalic, atraumatic, anicteric, other - JVD Respiratory/Chest: lungs clear - but decreased @ bases Cardiovascular: irregularly irregular Abdomen: normal bowel sounds, soft, non tender, no organomegaly, non distended , no mass Extremities: no cyanosis, no clubbing, other - 2+ KENNY Microbiology Date/Time Source Procedure Growth Status 01/04/18 15:30 Urine,Clean Catch Urine Culture - Final Enterobacter Cloacae Complex Complete 01/04/18 18:10 Rectum Received Laboratory Tests 01/05/18 21:25: Activated Partial Thromboplast Time > 150*H 01/06/18 05:50: Activated Partial Thromboplast Time 105H 01/06/18 14:00: Activated Partial Thromboplast Time 68H, White Blood Count 4.2L, Red Blood Count 3.05L, Hemoglobin 8.6L, Hematocrit 28.4L, Mean Corpuscular Volume 93, Mean Corpuscular Hemoglobin 28.3, Mean Corpuscular Hemoglobin Concent 30.3L, Red Cell Distribution Width 19.0H, Platelet Count 182, Mean Platelet Volume 7.9 , Neutrophils (%) (Auto) 59.1, Lymphocytes (%) (Auto) 23.0, Monocytes (%) (Auto ) 12.0H, Eosinophils (%) (Auto) 4.7H, Basophils (%) (Auto) 1.2, Sodium Level 140 , Potassium Level 4.0, Chloride Level 106, Carbon Dioxide Level 26, Anion Gap 8 , Blood Urea Nitrogen 38H, Creatinine 1.8H, Estimat Glomerular Filtration Rate , Glucose Level 114H, Calcium Level 7.8L Current Medications Medications (Trade) Dose Ordered Sig/Saul Route PRN Reason Start Time Stop Time Status Last Admin Dose Admin Acetaminophen (Tylenol) 650 mg Q6H PRN ORAL Mild Pain/Temp > 100.5 01/05/18 16:56 02/04/18 16:55 01/06/18 03:10 Carvedilol (Coreg) 3.125 mg EVERY 12 HOURS ORAL 01/05/18 21:00 02/04/18 08:59 01/06/18 08:25 Furosemide (Lasix) 40 mg EVERY 12 HOURS IV 01/05/18 21:00 02/04/18 08:59 01/06/18 08:25 Heparin Sodium/ Dextrose 500 ml @ 16.8 mls/hr ADJUST PER PROTOCOL IV 01/06/18 06:45 02/05/18 06:44 01/06/18 06:46 Hydralazine HCl (Apresoline) 25 mg EVERY 8 HOURS ORAL 01/05/18 22:00 02/04/18 05:59 01/06/18 13:27 Isosorbide Mononitrate (Imdur) 30 mg DAILY ORAL 01/06/18 09:00 02/05/18 08:59 01/06/18 08:25 Lactulose (Cephulac) 30 gm TIDPRN PRN ORAL bm 01/06/18 09:15 02/04/18 09:14 Metolazone (Zaroxolyn) 2.5 mg DAILY ORAL 01/06/18 09:00 02/05/18 08:59 01/06/18 08:22 Pantoprazole (Protonix) 40 mg EVERY 12 HOURS ORAL 01/05/18 21:00 02/04/18 08:59 01/06/18 08:25 Rifaximin (Xifaxan) 550 mg EVERY 12 HOURS ORAL 01/05/18 21:00 01/12/18 09:14 01/06/18 08:23 Sevelamer Carbonate (Renvela) 800 mg THREE TIMES A DAY ORAL 01/05/18 18:00 02/04/18 08:59 01/06/18 13:27 Temazepam (Restoril) 15 mg HSPRN PRN ORAL Insomnia 01/05/18 23:30 01/12/18 23:29 Sanford Amin MD Jan 06, 2018 16:45
[2018-01-06 20:00] VITALS: BP 130/77
--- NOTE | 2018-01-06 21:47 | General Progress Note ---
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 anxiety insomnia temazepam 15mg qhs prn metabolizes thru renal sys Subjective Date patient seen: Jan 06, 2018 Neurologic/Psychiatric: Reports: anxiety, depressed, emotional problems Allergies: Coded Allergies: No Known Allergies (Unverified , 08/30/17) Objective Last 24 Hour Vital Signs Date Time Temp Pulse Resp B/P (MAP) Pulse Ox O2 Delivery O2 Flow Rate FiO2 01/06/18 21:03 130/77 01/06/18 20:54 96 130/77 01/06/18 20:00 97.7 96 20 130/77 (94) 100 97.7 01/06/18 16:00 97.7 80 18 121/86 (98) 96 97.7 01/06/18 13:27 117/93 01/06/18 12:00 97.4 87 20 117/93 (101) 99 97.4 01/06/18 09:00 Nasal Cannula 2.0 01/06/18 08:25 110/66 01/06/18 08:25 91 110/66 01/06/18 08:00 97.9 91 19 120/66 (84) 98 97.9 01/06/18 05:14 117/72 01/06/18 04:00 103 01/06/18 04:00 98.7 95 20 117/72 (87) 96 98.7 01/06/18 00:00 98.0 87 21 129/85 (100) 98 98.0 01/06/18 00:00 102 Intake and Output 01/05/18 01/06/18 19:00 07:00 Intake Total 751.352 ml 225.44 ml Output Total 900 ml 200 ml Balance -148.648 ml 25.44 ml Intake Oral 560 ml IV Total 191.352 ml 225.44 ml Output Urine Total 900 ml 200 ml # Bowel Movements 2 Laboratory Tests 01/06/18 05:50: Activated Partial Thromboplast Time 105H 01/06/18 14:00: Activated Partial Thromboplast Time 68H, White Blood Count 4.2L, Red Blood Count 3.05L, Hemoglobin 8.6L, Hematocrit 28.4L, Mean Corpuscular Volume 93, Mean Corpuscular Hemoglobin 28.3, Mean Corpuscular Hemoglobin Concent 30.3L, Red Cell Distribution Width 19.0H, Platelet Count 182, Mean Platelet Volume 7.9 , Neutrophils (%) (Auto) 59.1, Lymphocytes (%) (Auto) 23.0, Monocytes (%) (Auto ) 12.0H, Eosinophils (%) (Auto) 4.7H, Basophils (%) (Auto) 1.2, Sodium Level 140 , Potassium Level 4.0, Chloride Level 106, Carbon Dioxide Level 26, Anion Gap 8 , Blood Urea Nitrogen 38H, Creatinine 1.8H, Estimat Glomerular Filtration Rate , Glucose Level 114H, Calcium Level 7.8L Height (Feet): 5 Height (Inches): 6.00 Weight (Pounds): 186 General Appearance: no apparent distress, alert Neurologic: oriented x 3, responsive, depressed affect Ziyad Ledezma MD Jan 06, 2018 21:47
[2018-01-07] VITALS: BP 136/74
[2018-01-07 04:00] VITALS: BP 125/83
[2018-01-07] MEDS: HydrALAZINE 25mg tab ORAL SCH ×3 (06:02→21:09)
[2018-01-07 06:29] LABS: BASOPHILS % (AUTO) 1.1 % (0.0-2.0); HEMATOCRIT 27.7 % (42.0-52.0); HEMOGLOBIN 8.4 G/DL (14.2-18.0); LYMPHOCYTES % (AUTO) 25.3 % (20.0-45.0); MEAN CORPUSCULAR VOLUME 94 FL (80-99); NEUTROPHILS % (AUTO) 58.7 % (45.0-75.0); PLATELET COUNT 169 K/UL (150-450); RED BLOOD COUNT 2.96 M/UL (4.70-6.10); RED CELL DISTRIBUTION WIDTH 18.8 % (11.6-14.8)
[2018-01-07 06:49] LABS: ANION GAP 8 mmol/L (5-15); BLOOD UREA NITROGEN 39 mg/dL (7-18); CALCIUM 8.3 MG/DL (8.5-10.1); CARBON DIOXIDE 29 MMOL/L (21-32); CHLORIDE 105 MMOL/L (98-107); CREATININE 1.8 MG/DL (0.55-1.30); PHOSPHORUS 3.6 MG/DL (2.5-4.9); SODIUM 142 MMOL/L (136-145)
--- NOTE | 2018-01-07 07:26 | General Progress Note ---
Assessment/Plan Assessment/Plan #. Right arm dvt along with bilateral dvt of the lower extremity DVT with progression on xarelto (though after review of further info does not appear to have been on anticoagulation when received right arm dvt) --> currently is on a heparin gtt --> likely will need transition to coumadin or can continue xarelto once discharged (will write script for either/or) --> for PE does not need any further imaging, as anticoagulation wouldn't change --> will trend cbc and okay to start coumadin inr goal 2-3 #. 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 Hepatitis and human immunodeficiency virus are negative --> Counts in line with historical values over time, continues to persist --> Ultrasound of the abdomen from last admission showed cirrhosis/HSM --> Tumor markers reviewed and are negative from before. --> Likely leukopenia secondary to splenomegaly. Give neupogen if ANC <1000 --> s/p paracentesis, 11/22: S/P paracentesis, yielding 5.9L of fluid. cytology though in prior was negative #. Anemia due to underlying chronic disease, appears to be stable. --> anemia w/u if hgb worsens, consider transfusion prn --> Current Hgb of 8.6, stable. #. Coagulopathy, likely related to underlying cirrhosis of the liver. --> Vit K prn basis, given by GI #. Hyperkalemia, given Kayexalate, currently has improved. #. Biventricular failure with severe pulmonary hypertension. The patient has seen by Cardiology. #. Ascites --> S/P paracentesis, yielding 5.9 liters of fluid, 11/26 --> may need to repeat prn The time the note was entered does not necessarily correspond to the time the patient was seen. Subjective Constitutional: Denies: no symptoms, chills, diaphoresis, fever, malaise, weakness, other HEENT: Denies: no symptoms, eye pain, blurred vision, tearing, double vision, ear pain, ear discharge, nose pain, nose congestion, throat pain, throat swelling, mouth pain, mouth swelling, other Respiratory: Denies: no symptoms, cough, orthopnea, shortness of breath, SOB with excertion, SOB at rest, sputum, stridor, wheezing, other Gastrointestinal/Abdominal: Denies: no symptoms, abdomen distended, abdominal pain, black stools, tarry stools, blood in stool, constipated, diarrhea, difficulty swallowing, nausea, poor appetite, poor fluid intake, rectal bleeding , vomiting, other Genitourinary: Denies: no symptoms, burning, discharge, frequency, flank pain, hematuria, incontinence, pain, urgency, other Neurologic/Psychiatric: Denies: no symptoms, anxiety, depressed, emotional problems, headache, numbness, paresthesia, pre-existing deficit, seizure, tingling, tremors, weakness, other Endocrine: Denies: no symptoms, excessive sweating, flushing, intolerance to cold, intolerance to heat, increased hunger, increased thirst, increased urine, unexplained weight gain, unexplained weight loss, other Allergies: Coded Allergies: No Known Allergies (Unverified , 08/30/17) Subjective on heparin gtt, on coumdin started, may consider it long-term Objective Last 24 Hour Vital Signs Date Time Temp Pulse Resp B/P (MAP) Pulse Ox O2 Delivery O2 Flow Rate FiO2 01/07/18 06:02 125/83 01/07/18 04:00 97.2 100 20 125/83 (97) 100 97.2 01/07/18 04:00 85 01/07/18 00:00 97.3 94 20 136/74 (94) 97 97.3 01/07/18 00:00 90 01/06/18 21:03 130/77 01/06/18 21:00 Nasal Cannula 2.0 01/06/18 20:54 96 130/77 01/06/18 20:00 99 01/06/18 20:00 97.7 96 20 130/77 (94) 100 97.7 01/06/18 16:00 97.7 80 18 121/86 (98) 96 97.7 01/06/18 13:27 117/93 01/06/18 12:00 97.4 87 20 117/93 (101) 99 97.4 01/06/18 09:00 Nasal Cannula 2.0 01/06/18 08:25 110/66 01/06/18 08:25 91 110/66 01/06/18 08:00 97.9 91 19 120/66 (84) 98 97.9 Intake and Output 01/06/18 01/07/18 19:00 07:00 Intake Total 705.5 ml 484.8 ml Output Total 1100 ml 1100 ml Balance -394.5 ml -615.2 ml Intake Oral 500 ml 300 ml IV Total 205.5 ml 184.8 ml Output Urine Total 1100 ml 1100 ml Laboratory Tests 01/06/18 14:00: White Blood Count 4.2L, Red Blood Count 3.05L, Hemoglobin 8.6L, Hematocrit 28.4L , Mean Corpuscular Volume 93, Mean Corpuscular Hemoglobin 28.3, Mean Corpuscular Hemoglobin Concent 30.3L, Red Cell Distribution Width 19.0H, Platelet Count 182, Mean Platelet Volume 7.9, Neutrophils (%) (Auto) 59.1, Lymphocytes (%) (Auto) 23.0, Monocytes (%) (Auto) 12.0H, Eosinophils (%) (Auto) 4.7H, Basophils (%) (Auto) 1.2, Activated Partial Thromboplast Time 68H, Sodium Level 140, Potassium Level 4.0, Chloride Level 106, Carbon Dioxide Level 26, Anion Gap 8, Blood Urea Nitrogen 38H, Creatinine 1.8H, Estimat Glomerular Filtration Rate , Glucose Level 114H, Calcium Level 7.8L 01/07/18 05:50: White Blood Count 4.0L, Red Blood Count 2.96L, Hemoglobin 8.4L, Hematocrit 27.7L , Mean Corpuscular Volume 94, Mean Corpuscular Hemoglobin 28.4, Mean Corpuscular Hemoglobin Concent 30.3L, Red Cell Distribution Width 18.8H, Platelet Count 169, Mean Platelet Volume 6.8, Neutrophils (%) (Auto) 58.7, Lymphocytes (%) (Auto) 25.3, Monocytes (%) (Auto) 9.0, Eosinophils (%) (Auto) 6.0H, Basophils (%) (Auto) 1.1, Activated Partial Thromboplast Time 74H, Sodium Level 142, Potassium Level 4.0, Chloride Level 105, Carbon Dioxide Level 29, Anion Gap 8, Blood Urea Nitrogen 39H, Creatinine 1.8H, Estimat Glomerular Filtration Rate , Glucose Level 94, Calcium Level 8.3L, Phosphorus Level 3.6, Magnesium Level 1.7L Height (Feet): 5 Height (Inches): 6.00 Weight (Pounds): 185 General Appearance: no apparent distress EENT: TMs normal Neck: normal alignment Cardiovascular: normal rate Respiratory/Chest: no respiratory distress Abdomen: non tender Extremities: non-tender Objective petoichae is ntoed throughout Christiano Hoffmann MD Jan 07, 2018 07:25
[2018-01-07 08:00] VITALS: BP 130/70
[2018-01-07] MEDS: Imdur 30mg tab ORAL SCH (08:10)
[2018-01-07] MEDS: metOLazone 2.5 MG TAB ORAL SCH (08:11)
--- NOTE | 2018-01-07 08:49 | Pulmonology Progress Note ---
Assessment/Plan Problems: (1) CHF (congestive heart failure), NYHA class IV (2) CHF exacerbation (3) Systolic and diastolic CHF, acute (4) 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 hypertension (5) Severe mitral regurgitation (6) Afib (7) right arm edema (8) DVT (deep venous thrombosis) Assessment/Plan ASSESSMENT: The patient is an 82[facility] with a history of congestive heart failure with severe systolic dysfunction, ischemic cardiomyopathy, atrial fibrillation, CKD, cirrhosis, hepatorenal syndrome, prior DVT, presenting with lower extremity DVT and upper extremity DVT in the setting of anticoagulation. It is unclear if he has a PE or not as his shortness of breath may be secondary to decompensated heart failure. Nonetheless, he needs to be anticoagulated and given his abnormal renal function I would not get a CT angio of the chest. PROBLEM LIST: 1. Bilateral lower extremity and right upper extremity DVT. 2. Possible PE. 3. Congestive heart failure with severe systolic dysfunction (ejection fraction 10 to 15 %) and acute decompensated heart failure. 4. Atrial fibrillation. 5. CKD. 6. Cirrhosis. 7. Hepatorenal syndrome. 8. Gram-negative bacillus urinary tract infection. 9. Leukopenia. 10. Anemia. 11. Enterobacter bacteremia TREATMENT PLAN: 1. Started on Xarelto, would D/C IVUH 2. No needs for CT angio or further PE w/u as patient already on A/C for PE 3. Monitor volumes and renal function, diuresis as tolerated. 4. Aspiration precautions. 5. Medical management of CHF per cards, declines life vest 6. DVT prophylaxis. The patient is on anticoagulation. Subjective Allergies: Coded Allergies: No Known Allergies (Unverified , 08/30/17) Subjective AFVSS, stable O2 needs, natalie AC, diuresing Slightly less SOB, no cough, no CP, + KENNY Objective Last 24 Hour Vital Signs Date Time Temp Pulse Resp B/P (MAP) Pulse Ox O2 Delivery O2 Flow Rate FiO2 01/07/18 08:11 96 130/70 01/07/18 08:10 130/70 01/07/18 08:00 97.0 96 20 130/70 (90) 99 97.0 01/07/18 06:02 125/83 01/07/18 04:00 97.2 100 20 125/83 (97) 100 97.2 01/07/18 04:00 85 01/07/18 00:00 97.3 94 20 136/74 (94) 97 97.3 01/07/18 00:00 90 01/06/18 21:03 130/77 01/06/18 21:00 Nasal Cannula 2.0 01/06/18 20:54 96 130/77 01/06/18 20:00 99 01/06/18 20:00 97.7 96 20 130/77 (94) 100 97.7 01/06/18 16:00 97.7 80 18 121/86 (98) 96 97.7 01/06/18 13:27 117/93 01/06/18 12:00 97.4 87 20 117/93 (101) 99 97.4 01/06/18 09:00 Nasal Cannula 2.0 Intake and Output 01/06/18 01/07/18 19:00 07:00 Intake Total 705.5 ml 484.8 ml Output Total 1100 ml 1100 ml Balance -394.5 ml -615.2 ml Intake Oral 500 ml 300 ml IV Total 205.5 ml 184.8 ml Output Urine Total 1100 ml 1100 ml General Appearance: WD/WN, no acute distress HEENT: normocephalic, atraumatic, anicteric, mucous membranes moist, other - 6 cm JVD Respiratory/Chest: chest wall non-tender, lungs clear - but decreased @ bases, normal breath sounds, no respiratory distress Cardiovascular: normal peripheral pulses, normal rate, regular rhythm Abdomen: normal bowel sounds, soft, non tender, no organomegaly, non distended Extremities: no cyanosis, no clubbing, other - 2+ edema at ankles Microbiology Date/Time Source Procedure Growth Status 01/04/18 15:30 Urine,Clean Catch Urine Culture - Final Enterobacter Cloacae Complex Complete 01/04/18 18:10 Rectum Received Laboratory Tests 01/06/18 14:00: White Blood Count 4.2L, Red Blood Count 3.05L, Hemoglobin 8.6L, Hematocrit 28.4L , Mean Corpuscular Volume 93, Mean Corpuscular Hemoglobin 28.3, Mean Corpuscular Hemoglobin Concent 30.3L, Red Cell Distribution Width 19.0H, Platelet Count 182, Mean Platelet Volume 7.9, Neutrophils (%) (Auto) 59.1, Lymphocytes (%) (Auto) 23.0, Monocytes (%) (Auto) 12.0H, Eosinophils (%) (Auto) 4.7H, Basophils (%) (Auto) 1.2, Activated Partial Thromboplast Time 68H, Sodium Level 140, Potassium Level 4.0, Chloride Level 106, Carbon Dioxide Level 26, Anion Gap 8, Blood Urea Nitrogen 38H, Creatinine 1.8H, Estimat Glomerular Filtration Rate , Glucose Level 114H, Calcium Level 7.8L 01/07/18 05:50: White Blood Count 4.0L, Red Blood Count 2.96L, Hemoglobin 8.4L, Hematocrit 27.7L , Mean Corpuscular Volume 94, Mean Corpuscular Hemoglobin 28.4, Mean Corpuscular Hemoglobin Concent 30.3L, Red Cell Distribution Width 18.8H, Platelet Count 169, Mean Platelet Volume 6.8, Neutrophils (%) (Auto) 58.7, Lymphocytes (%) (Auto) 25.3, Monocytes (%) (Auto) 9.0, Eosinophils (%) (Auto) 6.0H, Basophils (%) (Auto) 1.1, Activated Partial Thromboplast Time 74H, Sodium Level 142, Potassium Level 4.0, Chloride Level 105, Carbon Dioxide Level 29, Anion Gap 8, Blood Urea Nitrogen 39H, Creatinine 1.8H, Estimat Glomerular Filtration Rate , Glucose Level 94, Calcium Level 8.3L, Phosphorus Level 3.6, Magnesium Level 1.7L Current Medications Medications (Trade) Dose Ordered Sig/Saul Route PRN Reason Start Time Stop Time Status Last Admin Dose Admin Acetaminophen (Tylenol) 650 mg Q6H PRN ORAL Mild Pain/Temp > 100.5 01/05/18 16:56 02/04/18 16:55 01/06/18 03:10 Carvedilol (Coreg) 3.125 mg EVERY 12 HOURS ORAL 01/05/18 21:00 02/04/18 08:59 01/07/18 08:11 Furosemide (Lasix) 40 mg EVERY 12 HOURS IV 01/05/18 21:00 02/04/18 08:59 01/07/18 08:10 Heparin Sodium/ Dextrose 500 ml @ 16.8 mls/hr ADJUST PER PROTOCOL IV 01/06/18 06:45 02/05/18 06:44 01/06/18 21:01 Hydralazine HCl (Apresoline) 25 mg EVERY 8 HOURS ORAL 01/05/18 22:00 02/04/18 05:59 01/07/18 06:02 Isosorbide Mononitrate (Imdur) 30 mg DAILY ORAL 01/06/18 09:00 02/05/18 08:59 01/07/18 08:10 Lactulose (Cephulac) 30 gm TIDPRN PRN ORAL bm 01/06/18 09:15 02/04/18 09:14 Metolazone (Zaroxolyn) 2.5 mg DAILY ORAL 01/06/18 09:00 02/05/18 08:59 01/07/18 08:11 Pantoprazole (Protonix) 40 mg EVERY 12 HOURS ORAL 01/05/18 21:00 02/04/18 08:59 01/07/18 08:11 Rifaximin (Xifaxan) 550 mg EVERY 12 HOURS ORAL 01/05/18 21:00 01/12/18 09:14 01/07/18 08:11 Rivaroxaban (Xarelto) 15 mg BID ORAL 01/07/18 09:00 02/06/18 08:59 UNV Sevelamer Carbonate (Renvela) 800 mg THREE TIMES A DAY ORAL 01/05/18 18:00 02/04/18 08:59 01/07/18 08:11 Temazepam (Restoril) 15 mg HSPRN PRN ORAL Insomnia 01/05/18 23:30 01/12/18 23:29 01/06/18 20:54 Sanford Amin MD Jan 07, 2018 08:49
[2018-01-07] MEDS: Xarelto 15mg tab ORAL SCH ×2 (10:14→18:32)
--- NOTE | 2018-01-07 10:18 | General Progress Note ---
Assessment/Plan Problem List: (1) CHF (congestive heart failure), NYHA class IV ICD Codes: I50.9 - Heart failure, unspecified SNOMED: 787349284, 409327377 (2) right arm edema (3) Cirrhosis ICD Codes: K74.60 - Unspecified cirrhosis of liver SNOMED: 05453482 (4) CKD (chronic kidney disease) ICD Codes: N18.9 - Chronic kidney disease, unspecified SNOMED: 325565623 (5) Afib ICD Codes: I48.91 - Unspecified atrial fibrillation SNOMED: 52316585 (6) DVT (deep venous thrombosis) ICD Codes: I82.409 - Acute embolism and thrombosis of unspecified deep veins of unspecified lower extremity SNOMED: 800073557 Assessment/Plan CHF class IV - continue cardiac meds - xr consistent with fluid overload - lasix - last echo shows ef 10-25 % , rvsp 70 - appreciate cardiology reqs Right Arm edema with B/L LE DVT's - repeat echo to evaluate right heart strain that would be consistent with PE - called [facility] and was notified that patient was NOT on anticoagulation prior to admission - appreciate heme reqs - d/c hep gtt and start xarelto 15 mg po bid for 21 days then 15 mg po daily - vq scan and CT chest per pulm -> unable to complete because patient unable to lie flat, discussed with pulm, this will not change out management, low suspicion of PE given patient not tachycardic and results of echo show no RV strain. Afib - HR goal < 100 - anticoagulation Cirrhosis - medical management, no para needed at this time CKD - medical management Iron deficieny anemia and Anemia of Chronic Disease CODE STATUS- DNR DNI DC yates Dispo planning - SNF - CM consult - have attempted to [facility] have no information for family members either Subjective Date patient seen: Jan 07, 2018 Time patient seen: 09:00 Allergies: Coded Allergies: No Known Allergies (Unverified , 08/30/17) All Systems: reviewed and negative except above Subjective patient complains of pain at yates site Objective Last 24 Hour Vital Signs Date Time Temp Pulse Resp B/P (MAP) Pulse Ox O2 Delivery O2 Flow Rate FiO2 01/07/18 09:00 Nasal Cannula 2.0 01/07/18 08:11 96 130/70 01/07/18 08:10 130/70 01/07/18 08:00 97.0 96 20 130/70 (90) 99 97.0 01/07/18 06:02 125/83 01/07/18 04:00 97.2 100 20 125/83 (97) 100 97.2 01/07/18 04:00 85 01/07/18 00:00 97.3 94 20 136/74 (94) 97 97.3 01/07/18 00:00 90 01/06/18 21:03 130/77 01/06/18 21:00 Nasal Cannula 2.0 01/06/18 20:54 96 130/77 01/06/18 20:00 99 01/06/18 20:00 97.7 96 20 130/77 (94) 100 97.7 01/06/18 16:00 97.7 80 18 121/86 (98) 96 97.7 01/06/18 13:27 117/93 01/06/18 12:00 97.4 87 20 117/93 (101) 99 97.4 Intake and Output 01/06/18 01/07/18 19:00 07:00 Intake Total 705.5 ml 484.8 ml Output Total 1100 ml 1100 ml Balance -394.5 ml -615.2 ml Intake Oral 500 ml 300 ml IV Total 205.5 ml 184.8 ml Output Urine Total 1100 ml 1100 ml Laboratory Tests 01/06/18 14:00: White Blood Count 4.2L, Red Blood Count 3.05L, Hemoglobin 8.6L, Hematocrit 28.4L , Mean Corpuscular Volume 93, Mean Corpuscular Hemoglobin 28.3, Mean Corpuscular Hemoglobin Concent 30.3L, Red Cell Distribution Width 19.0H, Platelet Count 182, Mean Platelet Volume 7.9, Neutrophils (%) (Auto) 59.1, Lymphocytes (%) (Auto) 23.0, Monocytes (%) (Auto) 12.0H, Eosinophils (%) (Auto) 4.7H, Basophils (%) (Auto) 1.2, Activated Partial Thromboplast Time 68H, Sodium Level 140, Potassium Level 4.0, Chloride Level 106, Carbon Dioxide Level 26, Anion Gap 8, Blood Urea Nitrogen 38H, Creatinine 1.8H, Estimat Glomerular Filtration Rate , Glucose Level 114H, Calcium Level 7.8L 01/07/18 05:50: White Blood Count 4.0L, Red Blood Count 2.96L, Hemoglobin 8.4L, Hematocrit 27.7L , Mean Corpuscular Volume 94, Mean Corpuscular Hemoglobin 28.4, Mean Corpuscular Hemoglobin Concent 30.3L, Red Cell Distribution Width 18.8H, Platelet Count 169, Mean Platelet Volume 6.8, Neutrophils (%) (Auto) 58.7, Lymphocytes (%) (Auto) 25.3, Monocytes (%) (Auto) 9.0, Eosinophils (%) (Auto) 6.0H, Basophils (%) (Auto) 1.1, Activated Partial Thromboplast Time 74H, Sodium Level 142, Potassium Level 4.0, Chloride Level 105, Carbon Dioxide Level 29, Anion Gap 8, Blood Urea Nitrogen 39H, Creatinine 1.8H, Estimat Glomerular Filtration Rate , Glucose Level 94, Calcium Level 8.3L, Phosphorus Level 3.6, Magnesium Level 1.7L Height (Feet): 5 Height (Inches): 6.00 Weight (Pounds): 185 General Appearance: WD/WN, no apparent distress, alert, lethargic EENT: PERRL/EOMI, normal ENT inspection, TMs normal, pharynx normal Neck: non-tender, normal alignment, supple, normal inspection Cardiovascular: normal rate, regular rhythm, regularly irregular, no gallop/ murmur, JVD Respiratory/Chest: lungs clear, normal breath sounds, no respiratory distress, no accessory muscle use, crackles/rales Abdomen: normal bowel sounds, non tender, soft Extremities: non-tender, swelling Edema: no edema noted Arm (L); 3+ Arm (R), 3+ Leg (L), 3+ Leg (R), 3+ Pedal (L) , 3+ Pedal (R), 3+ Generalized Edema: severe edema 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
--- NOTE | 2018-01-07 10:55 | Cardiology Progress Note ---
Assessment/Plan Status: stable Assessment/Plan (1) CHF (congestive heart failure), NYHA class IV (2) right arm edema (3) Cirrhosis (4) CKD (chronic kidney disease) (5) Afib (6) DVT (deep venous thrombosis) Systolic dysfunction Previously arranged life vest but patient did not want Continue fluid restriction, NA <2 g/day Lasix/Metolazone to reduce PA pressure and filling pressures Continue goal directed medical therapy: Coreg BID, Hydralazine/Imdur DVT Continue anticoagulation for AFIB and DVT -> xarelto Evaluate for PE per primary - V/Q scan ordered but patient can not lay flat, CTA not done due to renal function -> patient on anticoagulation, will not plant changer at this time Afib No indication for cardioversion or ablation Continue rate control and anticoagulation -> xarelto Cirrhosis Monitor Continue lactulose prn Consider paracentesis Pleural effusion Continue diuresis May need thoracentesis Poor prognosis, consider hospice Subjective Cardiovascular: Reports: no symptoms Respiratory: Reports: no symptoms Gastrointestinal/Abdominal: Reports: no symptoms Genitourinary: Reports: no symptoms Subjective NO acute events, patient could not lay flat for V/Q scan, on heparin gtt for hx of DVT. Echo with end stage cardiomyopathy, vitals stable Objective Last 24 Hour Vital Signs Date Time Temp Pulse Resp B/P (MAP) Pulse Ox O2 Delivery O2 Flow Rate FiO2 01/07/18 09:55 Nasal Cannula 2.0 01/07/18 09:00 Nasal Cannula 2.0 01/07/18 08:11 96 130/70 01/07/18 08:10 130/70 01/07/18 08:00 97.0 96 20 130/70 (90) 99 97.0 01/07/18 06:02 125/83 01/07/18 04:00 97.2 100 20 125/83 (97) 100 97.2 01/07/18 04:00 85 01/07/18 00:00 97.3 94 20 136/74 (94) 97 97.3 01/07/18 00:00 90 01/06/18 21:03 130/77 01/06/18 21:00 Nasal Cannula 2.0 01/06/18 20:54 96 130/77 01/06/18 20:00 99 01/06/18 20:00 97.7 96 20 130/77 (94) 100 97.7 01/06/18 16:00 97.7 80 18 121/86 (98) 96 97.7 01/06/18 13:27 117/93 01/06/18 12:00 97.4 87 20 117/93 (101) 99 97.4 General Appearance: no apparent distress, alert, lethargic, thin EENT: normal ENT inspection, TMs normal, scleral icterus, pale conjunctivae Neck: non-tender, normal alignment, JVD Rhythm: Afib Cardiovascular: normal peripheral pulses, normal rate, diastolic murmur, systolic murmur, gallop/S3, gallop/S4, arrhythmia Respiratory/Chest: chest wall non-tender, decreased breath sounds, accessory muscle use Abdomen: normal bowel sounds, distended, rebound, tender, hepatomegaly, splenomegaly Extremities: normal range of motion, non-tender, normal inspection 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 Intake and Output 01/06/18 01/07/18 19:00 07:00 Intake Total 705.5 ml 484.8 ml Output Total 1100 ml 1100 ml Balance -394.5 ml -615.2 ml Intake Oral 500 ml 300 ml IV Total 205.5 ml 184.8 ml Output Urine Total 1100 ml 1100 ml Laboratory Tests Test 01/06/18 14:00 01/07/18 05:50 White Blood Count 4.2 K/UL (4.8-10.8) L 4.0 K/UL (4.8-10.8) L Red Blood Count 3.05 M/UL (4.70-6.10) L 2.96 M/UL (4.70-6.10) L Hemoglobin 8.6 G/DL (14.2-18.0) L 8.4 G/DL (14.2-18.0) L Hematocrit 28.4 % (42.0-52.0) L 27.7 % (42.0-52.0) L Mean Corpuscular Volume 93 FL (80-99) 94 FL (80-99) Mean Corpuscular Hemoglobin 28.3 PG (27.0-31.0) 28.4 PG (27.0-31.0) Mean Corpuscular Hemoglobin Concent 30.3 G/DL (32.0-36.0) L 30.3 G/DL (32.0-36.0) L Red Cell Distribution Width 19.0 % (11.6-14.8) H 18.8 % (11.6-14.8) H Platelet Count 182 K/UL (150-450) 169 K/UL (150-450) Mean Platelet Volume 7.9 FL (6.5-10.1) 6.8 FL (6.5-10.1) Neutrophils (%) (Auto) 59.1 % (45.0-75.0) 58.7 % (45.0-75.0) Lymphocytes (%) (Auto) 23.0 % (20.0-45.0) 25.3 % (20.0-45.0) Monocytes (%) (Auto) 12.0 % (1.0-10.0) H 9.0 % (1.0-10.0) Eosinophils (%) (Auto) 4.7 % (0.0-3.0) H 6.0 % (0.0-3.0) H Basophils (%) (Auto) 1.2 % (0.0-2.0) 1.1 % (0.0-2.0) Activated Partial Thromboplast Time 68 SEC (23-33) H 74 SEC (23-33) H Sodium Level 140 MMOL/L (136-145) 142 MMOL/L (136-145) Potassium Level 4.0 MMOL/L (3.5-5.1) 4.0 MMOL/L (3.5-5.1) Chloride Level 106 MMOL/L (98-107) 105 MMOL/L (98-107) Carbon Dioxide Level 26 MMOL/L (21-32) 29 MMOL/L (21-32) Anion Gap 8 mmol/L (5-15) 8 mmol/L (5-15) Blood Urea Nitrogen 38 mg/dL (7-18) H 39 mg/dL (7-18) H Creatinine 1.8 MG/DL (0.55-1.30) H 1.8 MG/DL (0.55-1.30) H Estimat Glomerular Filtration Rate mL/min (>60) mL/min (>60) Glucose Level 114 MG/DL (74-106) H 94 MG/DL (74-106) Calcium Level 7.8 MG/DL (8.5-10.1) L 8.3 MG/DL (8.5-10.1) L Phosphorus Level 3.6 MG/DL (2.5-4.9) Magnesium Level 1.7 MG/DL (1.8-2.4) L Microbiology Date/Time Source Procedure Growth Status 01/04/18 15:30 Urine,Clean Catch Urine Culture - Final Enterobacter Cloacae Complex Complete 01/04/18 18:10 Rectum VRE Culture - Preliminary Resulted 01/04/18 18:10 Rectum - Preliminary Resulted Kieran Cedillo MD Jan 07, 2018 10:55
[2018-01-07 12:00] VITALS: BP 146/67
--- NOTE | 2018-01-07 14:18 | General Progress Note ---
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 anxiety insomnia temazepam 15mg qhs prn metabolizes thru renal sys Subjective Date patient seen: Jan 07, 2018 Neurologic/Psychiatric: Reports: anxiety, depressed Allergies: Coded Allergies: No Known Allergies (Unverified , 08/30/17) Objective Last 24 Hour Vital Signs Date Time Temp Pulse Resp B/P (MAP) Pulse Ox O2 Delivery O2 Flow Rate FiO2 01/07/18 13:11 146/67 01/07/18 12:00 77 01/07/18 12:00 97.5 79 20 146/67 (93) 98 97.5 01/07/18 09:55 Nasal Cannula 2.0 01/07/18 09:00 Nasal Cannula 2.0 01/07/18 08:11 96 130/70 01/07/18 08:10 130/70 01/07/18 08:00 97.0 96 20 130/70 (90) 99 97.0 01/07/18 06:02 125/83 01/07/18 04:00 97.2 100 20 125/83 (97) 100 97.2 01/07/18 04:00 85 01/07/18 00:00 97.3 94 20 136/74 (94) 97 97.3 01/07/18 00:00 90 01/06/18 21:03 130/77 01/06/18 21:00 Nasal Cannula 2.0 01/06/18 20:54 96 130/77 01/06/18 20:00 99 01/06/18 20:00 97.7 96 20 130/77 (94) 100 97.7 01/06/18 16:00 97.7 80 18 121/86 (98) 96 97.7 Intake and Output 01/06/18 01/07/18 19:00 07:00 Intake Total 705.5 ml 484.8 ml Output Total 1100 ml 1100 ml Balance -394.5 ml -615.2 ml Intake Oral 500 ml 300 ml IV Total 205.5 ml 184.8 ml Output Urine Total 1100 ml 1100 ml Laboratory Tests 01/07/18 05:50: White Blood Count 4.0L, Red Blood Count 2.96L, Hemoglobin 8.4L, Hematocrit 27.7L , Mean Corpuscular Volume 94, Mean Corpuscular Hemoglobin 28.4, Mean Corpuscular Hemoglobin Concent 30.3L, Red Cell Distribution Width 18.8H, Platelet Count 169, Mean Platelet Volume 6.8, Neutrophils (%) (Auto) 58.7, Lymphocytes (%) (Auto) 25.3, Monocytes (%) (Auto) 9.0, Eosinophils (%) (Auto) 6.0H, Basophils (%) (Auto) 1.1, Activated Partial Thromboplast Time 74H, Sodium Level 142, Potassium Level 4.0, Chloride Level 105, Carbon Dioxide Level 29, Anion Gap 8, Blood Urea Nitrogen 39H, Creatinine 1.8H, Estimat Glomerular Filtration Rate , Glucose Level 94, Calcium Level 8.3L, Phosphorus Level 3.6, Magnesium Level 1.7L Height (Feet): 5 Height (Inches): 6.00 Weight (Pounds): 185 General Appearance: no apparent distress, alert Neurologic: oriented x 3, responsive, depressed affect Ziyad Ledezma MD Jan 07, 2018 14:18
[2018-01-07 16:00] VITALS: BP 150/81
[2018-01-07 20:00] VITALS: BP 149/79
[2018-01-08] VITALS: BP 140/71
[2018-01-08 04:00] VITALS: BP 133/66
[2018-01-08] MEDS: HydrALAZINE 25mg tab ORAL SCH ×3 (05:42→21:01)
[2018-01-08 07:29] LABS: BASOPHILS % (AUTO) 0.7 % (0.0-2.0); EOSINOPHILS % (AUTO) 6.7 % (0.0-3.0); HEMATOCRIT 27.4 % (42.0-52.0); HEMOGLOBIN 8.2 G/DL (14.2-18.0); LYMPHOCYTES % (AUTO) 19.4 % (20.0-45.0); MEAN CORPUSCULAR VOLUME 93 FL (80-99); MONOCYTES % (AUTO) 9.4 % (1.0-10.0); NEUTROPHILS % (AUTO) 63.9 % (45.0-75.0); PLATELET COUNT 161 K/UL (150-450); RED BLOOD COUNT 2.94 M/UL (4.70-6.10); RED CELL DISTRIBUTION WIDTH 19.1 % (11.6-14.8); WHITE BLOOD COUNT 4.4 K/UL (4.8-10.8)
[2018-01-08 07:37] LABS: ANION GAP 8 mmol/L (5-15); BLOOD UREA NITROGEN 39 mg/dL (7-18); CALCIUM 8.3 MG/DL (8.5-10.1); CARBON DIOXIDE 30 MMOL/L (21-32); CHLORIDE 104 MMOL/L (98-107); PHOSPHORUS 3.3 MG/DL (2.5-4.9); POTASSIUM 3.5 MMOL/L (3.5-5.1); SODIUM 142 MMOL/L (136-145)
[2018-01-08 08:00] VITALS: BP 114/68
[2018-01-08] MEDS: Xarelto 15mg tab ORAL SCH ×2 (08:47→17:50)
[2018-01-08] MEDS: metOLazone 2.5 MG TAB ORAL SCH (08:47)
[2018-01-08] MEDS: Imdur 30mg tab ORAL SCH (08:47)
[2018-01-08 12:00] VITALS: BP 128/71
--- NOTE | 2018-01-08 12:57 | General Progress Note ---
Assessment/Plan Status: stable Assessment/Plan #. Right arm dvt along with bilateral dvt of the lower extremity DVT with progression on xarelto (though after review of further info does not appear to have been on anticoagulation when received right arm dvt) --> likely will need transition to coumadin or can continue xarelto once discharged (will write script for either/or) --> for PE does not need any further imaging, as anticoagulation wouldn't change --> will trend cbc and okay to start coumadin inr goal 2-3 --> Currently on rivaroxaban #. 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 Hepatitis and human immunodeficiency virus are negative --> Counts in line with historical values over time, continues to persist --> Ultrasound of the abdomen from last admission showed cirrhosis/HSM --> Tumor markers reviewed and are negative from before. --> Likely leukopenia secondary to splenomegaly. Give neupogen if ANC <1000 --> s/p paracentesis, 11/22: S/P paracentesis, yielding 5.9L of fluid. cytology though in prior was negative #. Anemia due to underlying chronic disease, appears to be stable. --> anemia w/u if hgb worsens, consider transfusion prn --> Current Hgb of 8.2, stable. #. Coagulopathy, likely related to underlying cirrhosis of the liver. --> Vit K prn basis, given by GI #. Hyperkalemia, given Kayexalate, currently has improved. #. Biventricular failure with severe pulmonary hypertension. The patient has seen by Cardiology. #. Ascites --> S/P paracentesis, yielding 5.9 liters of fluid, 11/26 --> may need to repeat prn The time the note was entered does not necessarily correspond to the time the patient was seen. Subjective ROS Limited/Unobtainable: Yes Hematologic/Lymphatic: Reports: anemia Allergies: Coded Allergies: No Known Allergies (Unverified , 08/30/17) Subjective No acute events. Currently on rivaroxaban. H/H stable. Objective Last 24 Hour Vital Signs Date Time Temp Pulse Resp B/P (MAP) Pulse Ox O2 Delivery O2 Flow Rate FiO2 01/08/18 09:00 Nasal Cannula 2.0 01/08/18 08:47 114/68 01/08/18 08:47 94 114/68 01/08/18 08:00 97.7 94 21 114/68 (83) 99 97.7 01/08/18 05:42 133/66 01/08/18 04:00 97.6 71 20 133/66 (88) 98 97.6 01/08/18 04:00 94 01/08/18 00:00 97.5 79 19 140/71 (94) 97 97.5 01/07/18 21:09 149/79 01/07/18 21:09 93 149/79 01/07/18 21:00 Nasal Cannula 2.0 01/07/18 20:00 93 01/07/18 20:00 98.0 81 20 149/79 (102) 98 98.0 01/07/18 16:00 97.3 79 21 150/81 (104) 99 97.3 01/07/18 16:00 118 01/07/18 13:11 146/67 Intake and Output 01/07/18 01/08/18 18:59 06:59 Intake Total 916.8 ml Output Total 2000 ml Balance -1083.2 ml Intake Oral 900 ml IV Total 16.8 ml Output Urine Total 2000 ml # Voids 4 Laboratory Tests 01/08/18 05:35: White Blood Count 4.4L, Red Blood Count 2.94L, Hemoglobin 8.2L, Hematocrit 27.4L , Mean Corpuscular Volume 93, Mean Corpuscular Hemoglobin 27.8, Mean Corpuscular Hemoglobin Concent 29.9L, Red Cell Distribution Width 19.1H, Platelet Count 161, Mean Platelet Volume 7.5, Neutrophils (%) (Auto) 63.9, Lymphocytes (%) (Auto) 19.4L, Monocytes (%) (Auto) 9.4, Eosinophils (%) (Auto) 6.7H, Basophils (%) (Auto) 0.7 01/08/18 06:00: Sodium Level 142, Potassium Level 3.5, Chloride Level 104, Carbon Dioxide Level 30, Anion Gap 8, Blood Urea Nitrogen 39H, Creatinine 2.0H, Estimat Glomerular Filtration Rate , Glucose Level 116H, Calcium Level 8.3L, Phosphorus Level 3.3, Magnesium Level 1.9 Height (Feet): 5 Height (Inches): 6.00 Weight (Pounds): 184 General Appearance: no apparent distress EENT: PERRL/EOMI Neck: normal alignment Cardiovascular: normal peripheral pulses Respiratory/Chest: no respiratory distress Abdomen: soft Objective petoichae is ntoed throughout Christiano Hoffmann MD Jan 08, 2018 12:57
[2018-01-08] MEDS ORDERED: NS 275ml ONE (14:00)
[2018-01-08] MEDS ORDERED: Tubing IV Secondary IV ONE (14:00)
--- NOTE | 2018-01-08 14:37 | General Progress Note ---
Assessment/Plan Assessment/Plan CHF class IV - continue cardiac meds - xr consistent with fluid overload - c/w lasix (Cr up to 2, consider transition to PO, defer to cards) - last echo shows ef 10-25 % , rvsp 70 - appreciate cardiology reqs - replete lytes Right Arm edema with B/L LE DVT's - repeat echo to evaluate right heart strain that would be consistent with PE - appreciate heme reqs - xarelto 15 mg po bid for 21 days then 15 mg po daily - vq scan and CT chest per pulm -> unable to complete because patient unable to lie flat, discussed with pulm, this will not change out management, low suspicion of PE given patient not tachycardic and results of echo show no RV strain. Afib - HR goal < 100 - anticoagulation Cirrhosis - medical management, no para needed at this time CKD - medical management - trend chem - caution w/ diuresis - avoid nephro tox meds Iron deficiency anemia and Anemia of Chronic Disease CODE STATUS- DNR DNI Dispo planning - SNF - CM consult - have attempted to find contact information for family, [facility] have no information for family members either Subjective Date patient seen: Jan 08, 2018 Allergies: Coded Allergies: No Known Allergies (Unverified , 08/30/17) Subjective AVSS Diuresing well Cr w/ slight bump SOB improved Denies CP, Palp 12 pt ros neg except as above. Objective Last 24 Hour Vital Signs Date Time Temp Pulse Resp B/P (MAP) Pulse Ox O2 Delivery O2 Flow Rate FiO2 01/08/18 13:20 128/71 01/08/18 12:00 97.6 98 21 128/71 (90) 98 97.6 01/08/18 09:00 Nasal Cannula 2.0 01/08/18 08:47 114/68 01/08/18 08:47 94 114/68 01/08/18 08:00 97.7 94 21 114/68 (83) 99 97.7 01/08/18 05:42 133/66 01/08/18 04:00 97.6 71 20 133/66 (88) 98 97.6 01/08/18 04:00 94 01/08/18 00:00 97.5 79 19 140/71 (94) 97 97.5 01/07/18 21:09 149/79 01/07/18 21:09 93 149/79 01/07/18 21:00 Nasal Cannula 2.0 01/07/18 20:00 93 01/07/18 20:00 98.0 81 20 149/79 (102) 98 98.0 01/07/18 16:00 97.3 79 21 150/81 (104) 99 97.3 01/07/18 16:00 118 Intake and Output 01/07/18 01/08/18 19:00 07:00 Intake Total 916.8 ml Output Total 2000 ml Balance -1083.2 ml Intake Oral 900 ml IV Total 16.8 ml Output Urine Total 2000 ml # Voids 4 Laboratory Tests 01/08/18 05:35: White Blood Count 4.4L, Red Blood Count 2.94L, Hemoglobin 8.2L, Hematocrit 27.4L , Mean Corpuscular Volume 93, Mean Corpuscular Hemoglobin 27.8, Mean Corpuscular Hemoglobin Concent 29.9L, Red Cell Distribution Width 19.1H, Platelet Count 161, Mean Platelet Volume 7.5, Neutrophils (%) (Auto) 63.9, Lymphocytes (%) (Auto) 19.4L, Monocytes (%) (Auto) 9.4, Eosinophils (%) (Auto) 6.7H, Basophils (%) (Auto) 0.7 01/08/18 06:00: Sodium Level 142, Potassium Level 3.5, Chloride Level 104, Carbon Dioxide Level 30, Anion Gap 8, Blood Urea Nitrogen 39H, Creatinine 2.0H, Estimat Glomerular Filtration Rate , Glucose Level 116H, Calcium Level 8.3L, Phosphorus Level 3.3, Magnesium Level 1.9 Height (Feet): 5 Height (Inches): 6.00 Weight (Pounds): 184 Objective General Appearance: WD/WN, no apparent distress, alert, lethargic EENT: PERRL/EOMI, normal ENT inspection, TMs normal, pharynx normal Neck: non-tender, normal alignment, supple, normal inspection Cardiovascular: normal rate, regular rhythm, regularly irregular, no gallop/ murmur, JVD Respiratory/Chest: lungs clear, normal breath sounds, no respiratory distress, no accessory muscle use, crackles/rales Abdomen: normal bowel sounds, non tender, soft Extremities: non-tender, swelling Edema: no edema noted Arm (L); 3+ Arm (R), 3+ Leg (L), 3+ Leg (R), 3+ Pedal (L) , 3+ Pedal (R), 3+ Generalized Edema: severe edema Neurologic: beer cooler II-XII grossly normal, no motor/sensory deficits Skin: normal pigmentation, warm/dry Raul Upton MD Jan 08, 2018 14:37
[2018-01-08 16:00] VITALS: BP 125/75
--- NOTE | 2018-01-08 16:55 | Pulmonology Progress Note ---
Assessment/Plan Assessment/Plan PROBLEM LIST: 1. Bilateral lower extremity and right upper extremity DVT. 2. Possible PE. 3. Congestive heart failure with severe systolic dysfunction (ejection fraction 10 to 15 %) and acute decompensated heart failure. 4. Atrial fibrillation. 5. CKD. 6. Cirrhosis. 7. Hepatorenal syndrome. 8. Gram-negative bacillus urinary tract infection. 9. Leukopenia. 10. Anemia. 11. Enterobacter bacteremia TREATMENT PLAN: 1. Started on Xarelto, would D/C IVUH 2. o2 3. Monitor volumes and renal function, diuresis as tolerated. 4. Aspiration precautions. 5. Medical management of CHF per cards, declines life vest 6. DVT prophylaxis. The patient is on anticoagulation. 7. diuresis as tolerated 8. CR prn 9. DC planning Subjective Constitutional: Reports: no symptoms Respiratory: Reports: dry cough, shortness of breath Cardiovascular: Reports: no symptoms Genitourinary: Reports: no symptoms Neurologic: Reports: no symptoms Psychiatric: Reports: no symptoms Allergies: Coded Allergies: No Known Allergies (Unverified , 08/30/17) Subjective no events over night no cp nv or bleeding tolerating po oob to chair cough is dry on o2 Objective Last 24 Hour Vital Signs Date Time Temp Pulse Resp B/P (MAP) Pulse Ox O2 Delivery O2 Flow Rate FiO2 01/08/18 16:00 97.8 83 20 125/75 (92) 97 97.8 01/08/18 15:33 77 01/08/18 13:20 128/71 01/08/18 12:00 97.6 98 21 128/71 (90) 98 97.6 01/08/18 09:00 Nasal Cannula 2.0 01/08/18 08:47 114/68 01/08/18 08:47 94 114/68 01/08/18 08:00 97.7 94 21 114/68 (83) 99 97.7 01/08/18 05:42 133/66 01/08/18 04:00 97.6 71 20 133/66 (88) 98 97.6 01/08/18 04:00 94 01/08/18 00:00 97.5 79 19 140/71 (94) 97 97.5 01/07/18 21:09 149/79 01/07/18 21:09 93 149/79 01/07/18 21:00 Nasal Cannula 2.0 10/12/18 20:00 93 01/07/18 20:00 98.0 81 20 149/79 (102) 98 98.0 Intake and Output 01/07/18 01/08/18 19:00 07:00 Intake Total 916.8 ml Output Total 2000 ml Balance -1083.2 ml Intake Oral 900 ml IV Total 16.8 ml Output Urine Total 2000 ml # Voids 4 General Appearance: cachetic HEENT: atraumatic, anicteric Respiratory/Chest: rhonchi Cardiovascular: normal rate, regular rhythm, murmur systolic Abdomen: soft, non tender, no organomegaly Neurologic/Psychiatric: cloth baler II-XII grossly normal, alert, oriented x 3 Laboratory Tests 01/08/18 05:35: White Blood Count 4.4L, Red Blood Count 2.94L, Hemoglobin 8.2L, Hematocrit 27.4L , Mean Corpuscular Volume 93, Mean Corpuscular Hemoglobin 27.8, Mean Corpuscular Hemoglobin Concent 29.9L, Red Cell Distribution Width 19.1H, Platelet Count 161, Mean Platelet Volume 7.5, Neutrophils (%) (Auto) 63.9, Lymphocytes (%) (Auto) 19.4L, Monocytes (%) (Auto) 9.4, Eosinophils (%) (Auto) 6.7H, Basophils (%) (Auto) 0.7 01/08/18 06:00: Sodium Level 142, Potassium Level 3.5, Chloride Level 104, Carbon Dioxide Level 30, Anion Gap 8, Blood Urea Nitrogen 39H, Creatinine 2.0H, Estimat Glomerular Filtration Rate , Glucose Level 116H, Calcium Level 8.3L, Phosphorus Level 3.3, Magnesium Level 1.9 Current Medications Medications (Trade) Dose Ordered Sig/Saul Route PRN Reason Start Time Stop Time Status Last Admin Dose Admin Acetaminophen (Tylenol) 650 mg Q6H PRN ORAL Mild Pain/Temp > 100.5 01/05/18 16:56 02/04/18 16:55 01/08/18 07:47 Carvedilol (Coreg) 3.125 mg EVERY 12 HOURS ORAL 01/05/18 21:00 02/04/18 08:59 01/08/18 08:47 Furosemide (Lasix) 40 mg EVERY 12 HOURS IV 01/05/18 21:00 02/04/18 08:59 01/08/18 08:47 Hydralazine HCl (Apresoline) 25 mg EVERY 8 HOURS ORAL 01/05/18 22:00 02/04/18 05:59 01/08/18 13:20 Isosorbide Mononitrate (Imdur) 30 mg DAILY ORAL 01/06/18 09:00 02/05/18 08:59 01/08/18 08:47 Lactulose (Cephulac) 30 gm TIDPRN PRN ORAL bm 01/06/18 09:15 02/04/18 09:14 Metolazone (Zaroxolyn) 2.5 mg DAILY ORAL 01/06/18 09:00 02/05/18 08:59 01/08/18 08:47 Pantoprazole (Protonix) 40 mg EVERY 12 HOURS ORAL 01/05/18 21:00 02/04/18 08:59 01/08/18 08:46 Rifaximin (Xifaxan) 550 mg EVERY 12 HOURS ORAL 01/05/18 21:00 01/12/18 09:14 01/08/18 08:47 Rivaroxaban (Xarelto) 15 mg BID ORAL 01/07/18 09:00 02/06/18 08:59 01/08/18 08:47 Sevelamer Carbonate (Renvela) 800 mg THREE TIMES A DAY ORAL 01/05/18 18:00 02/04/18 08:59 01/08/18 08:47 Temazepam (Restoril) 15 mg HSPRN PRN ORAL Insomnia 01/05/18 23:30 01/12/18 23:29 01/07/18 21:09 Sally Chamorro DO Jan 08, 2018 16:55
[2018-01-08 20:00] VITALS: BP 114/68
--- NOTE | 2018-01-08 23:55 | General Progress Note ---
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 anxiety insomnia temazepam 15mg qhs prn metabolizes thru renal sys Subjective Neurologic/Psychiatric: Reports: anxiety, depressed Allergies: Coded Allergies: No Known Allergies (Unverified , 08/30/17) Objective Last 24 Hour Vital Signs Date Time Temp Pulse Resp B/P (MAP) Pulse Ox O2 Delivery O2 Flow Rate FiO2 01/08/18 21:01 131/83 01/08/18 21:00 Nasal Cannula 2.0 01/08/18 20:54 85 01/08/18 20:51 106 131/83 01/08/18 20:00 97.9 85 20 114/68 (83) 96 97.9 01/08/18 16:00 97.8 83 20 125/75 (92) 97 97.8 01/08/18 15:33 77 01/08/18 13:20 128/71 01/08/18 12:00 97.6 98 21 128/71 (90) 98 97.6 01/08/18 09:00 Nasal Cannula 2.0 01/08/18 08:47 114/68 01/08/18 08:47 94 114/68 01/08/18 08:00 97.7 94 21 114/68 (83) 99 97.7 01/08/18 05:42 133/66 01/08/18 04:00 97.6 71 20 133/66 (88) 98 97.6 01/08/18 04:00 94 01/08/18 00:00 97.5 79 19 140/71 (94) 97 97.5 Intake and Output 01/07/18 01/08/18 19:00 07:00 Intake Total 916.8 ml Output Total 2000 ml Balance -1083.2 ml Intake Oral 900 ml IV Total 16.8 ml Output Urine Total 2000 ml # Voids 4 Laboratory Tests 01/08/18 05:35: White Blood Count 4.4L, Red Blood Count 2.94L, Hemoglobin 8.2L, Hematocrit 27.4L , Mean Corpuscular Volume 93, Mean Corpuscular Hemoglobin 27.8, Mean Corpuscular Hemoglobin Concent 29.9L, Red Cell Distribution Width 19.1H, Platelet Count 161, Mean Platelet Volume 7.5, Neutrophils (%) (Auto) 63.9, Lymphocytes (%) (Auto) 19.4L, Monocytes (%) (Auto) 9.4, Eosinophils (%) (Auto) 6.7H, Basophils (%) (Auto) 0.7 01/08/18 06:00: Sodium Level 142, Potassium Level 3.5, Chloride Level 104, Carbon Dioxide Level 30, Anion Gap 8, Blood Urea Nitrogen 39H, Creatinine 2.0H, Estimat Glomerular Filtration Rate , Glucose Level 116H, Calcium Level 8.3L, Phosphorus Level 3.3, Magnesium Level 1.9 Height (Feet): 5 Height (Inches): 6.00 Weight (Pounds): 184 General Appearance: no apparent distress, alert Neurologic: oriented x 3, responsive, depressed affect Ziyad Ledezma MD Jan 08, 2018 23:55
[2018-01-09] VITALS (7 sets, daily range): BP systolic 105–138; BP diastolic 68–79
[2018-01-09] MEDS: HydrALAZINE 25mg tab ORAL SCH ×3 (05:42→22:22)
[2018-01-09 07:52] LABS: BASOPHILS % (AUTO) 0.5 % (0.0-2.0); EOSINOPHILS % (AUTO) 7.4 % (0.0-3.0); HEMOGLOBIN 8.2 G/DL (14.2-18.0); LYMPHOCYTES % (AUTO) 18.8 % (20.0-45.0); MEAN CORPUSCULAR VOLUME 93 FL (80-99); MONOCYTES % (AUTO) 10.1 % (1.0-10.0); NEUTROPHILS % (AUTO) 63.3 % (45.0-75.0); PLATELET COUNT 146 K/UL (150-450); RED BLOOD COUNT 2.91 M/UL (4.70-6.10); RED CELL DISTRIBUTION WIDTH 19.1 % (11.6-14.8); WHITE BLOOD COUNT 4.6 K/UL (4.8-10.8)
[2018-01-09 08:10] LABS: ANION GAP 6 mmol/L (5-15); BLOOD UREA NITROGEN 40 mg/dL (7-18); CARBON DIOXIDE 33 MMOL/L (21-32); CHLORIDE 104 MMOL/L (98-107); CREATININE 1.8 MG/DL (0.55-1.30); PHOSPHORUS 3.1 MG/DL (2.5-4.9); POTASSIUM 3.4 MMOL/L (3.5-5.1); SODIUM 143 MMOL/L (136-145)
[2018-01-09] MEDS: Imdur 30mg tab ORAL SCH (08:52)
[2018-01-09] MEDS: Xarelto 15mg tab ORAL SCH ×2 (08:52→16:55)
[2018-01-09] MEDS: metOLazone 2.5 MG TAB ORAL SCH (08:56)
[2018-01-09] MEDS ORDERED: Lactulose 20gm/30ml UDC ORAL PRN (09:15)
--- NOTE | 2018-01-09 10:22 | Cardiology Progress Note ---
Assessment/Plan Status: stable Assessment/Plan (1) CHF (congestive heart failure), NYHA class IV (2) right arm edema (3) Cirrhosis (4) CKD (chronic kidney disease) (5) Afib (6) DVT (deep venous thrombosis) Systolic dysfunction Previously arranged life vest but patient did not want Continue fluid restriction, NA <2 g/day Lasix/Metolazone to reduce PA pressure and filling pressures Continue goal directed medical therapy: Coreg BID, Hydralazine/Imdur DVT Continue anticoagulation for AFIB and DVT -> xarelto Evaluate for PE per primary - V/Q scan ordered but patient can not lay flat, CTA not done due to renal function -> patient on anticoagulation, 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 Echo with end stage cardiomyopathy, vitals stable Objective Last 24 Hour Vital Signs Date Time Temp Pulse Resp B/P (MAP) Pulse Ox O2 Delivery O2 Flow Rate FiO2 01/09/18 09:42 Nasal Cannula 2.0 01/09/18 08:52 125/67 01/09/18 08:52 87 125/67 01/09/18 08:48 97.6 86 18 132/70 (90) 100 97.6 01/09/18 08:00 97.4 86 18 132/70 (90) 100 97.4 01/09/18 05:42 114/68 01/09/18 04:00 98.2 90 20 114/68 (83) 99 98.2 01/09/18 00:00 97.6 99 20 128/68 (88) 99 97.6 01/08/18 21:01 131/83 01/08/18 21:00 Nasal Cannula 2.0 01/08/18 20:54 85 01/08/18 20:51 106 131/83 01/08/18 20:00 97.9 85 20 114/68 (83) 96 97.9 01/08/18 16:00 97.8 83 20 125/75 (92) 97 97.8 01/08/18 15:33 77 01/08/18 13:20 128/71 01/08/18 12:00 97.6 98 21 128/71 (90) 98 97.6 General Appearance: no apparent distress, cachetic, lethargic, thin EENT: PERRL/EOMI, normal ENT inspection, scleral icterus Neck: non-tender, normal alignment, JVD Rhythm: Afib Cardiovascular: normal peripheral pulses, normal rate, regularly irregular, diastolic murmur, systolic murmur, gallop/S3, gallop/S4 Respiratory/Chest: chest wall non-tender, lungs clear Abdomen: normal bowel sounds, non tender, distended, guarding, hepatomegaly, splenomegaly Extremities: normal range of motion, non-tender, normal inspection 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 Intake and Output 01/08/18 01/09/18 19:00 07:00 Intake Total 900 ml Output Total 1200 ml 500 ml Balance -300 ml -500 ml Intake Oral 900 ml Output Urine Total 1200 ml 500 ml # Voids 3 Laboratory Tests Test 01/09/18 07:10 White Blood Count 4.6 K/UL (4.8-10.8) L Red Blood Count 2.91 M/UL (4.70-6.10) L Hemoglobin 8.2 G/DL (14.2-18.0) L Hematocrit 27.0 % (42.0-52.0) L Mean Corpuscular Volume 93 FL (80-99) Mean Corpuscular Hemoglobin 28.1 PG (27.0-31.0) Mean Corpuscular Hemoglobin Concent 30.3 G/DL (32.0-36.0) L Red Cell Distribution Width 19.1 % (11.6-14.8) H Platelet Count 146 K/UL (150-450) L Mean Platelet Volume 7.3 FL (6.5-10.1) Neutrophils (%) (Auto) 63.3 % (45.0-75.0) Lymphocytes (%) (Auto) 18.8 % (20.0-45.0) L Monocytes (%) (Auto) 10.1 % (1.0-10.0) H Eosinophils (%) (Auto) 7.4 % (0.0-3.0) H Basophils (%) (Auto) 0.5 % (0.0-2.0) Sodium Level 143 MMOL/L (136-145) Potassium Level 3.4 MMOL/L (3.5-5.1) L Chloride Level 104 MMOL/L (98-107) Carbon Dioxide Level 33 MMOL/L (21-32) H Anion Gap 6 mmol/L (5-15) Blood Urea Nitrogen 40 mg/dL (7-18) H Creatinine 1.8 MG/DL (0.55-1.30) H Estimat Glomerular Filtration Rate mL/min (>60) Glucose Level 80 MG/DL (74-106) Calcium Level 8.0 MG/DL (8.5-10.1) L Phosphorus Level 3.1 MG/DL (2.5-4.9) Magnesium Level 1.7 MG/DL (1.8-2.4) L Kieran Cedillo MD Jan 09, 2018 10:22
--- NOTE | 2018-01-09 15:56 | General Progress Note ---
Assessment/Plan Assessment/Plan CHF class IV - continue cardiac meds - xr consistent with fluid overload - c/w lasix (Cr up to 2, consider transition to PO, defer to cards) - last echo shows ef 10-25 % , rvsp 70 - appreciate cardiology reqs - replete lytes Right Arm edema with B/L LE DVT's - repeat echo to evaluate right heart strain that would be consistent with PE - appreciate heme reqs - xarelto 15 mg po bid for 21 days then 15 mg po daily - vq scan and CT chest per pulm -> unable to complete because patient unable to lie flat, discussed with pulm, this will not change out management, low suspicion of PE given patient not tachycardic and results of echo show no RV strain. Afib - HR goal < 100 - anticoagulation Cirrhosis - medical management, no para needed at this time CKD - medical management - trend chem - caution w/ diuresis - avoid nephro tox meds Iron deficiency anemia and Anemia of Chronic Disease CODE STATUS- DNR DNI Dispo planning - SNF - CM consult - have attempted to find contact information for family, [facility] states they have no information for family members either Subjective Date patient seen: Jan 09, 2018 Allergies: Coded Allergies: No Known Allergies (Unverified , 08/30/17) Subjective AVSS Diuresing well SOB improved Denies CP, Palp 12 pt ros neg except as above. Objective Last 24 Hour Vital Signs Date Time Temp Pulse Resp B/P (MAP) Pulse Ox O2 Delivery O2 Flow Rate FiO2 01/09/18 13:12 138/79 01/09/18 12:00 97.8 89 17 138/79 (98) 100 97.8 01/09/18 09:42 Nasal Cannula 2.0 01/09/18 08:52 125/67 01/09/18 08:52 87 125/67 01/09/18 08:48 97.6 86 18 132/70 (90) 100 97.6 01/09/18 08:00 97.4 86 18 132/70 (90) 100 97.4 01/09/18 05:42 114/68 01/09/18 04:00 98.2 90 20 114/68 (83) 99 98.2 01/09/18 00:00 97.6 99 20 128/68 (88) 99 97.6 01/08/18 21:01 131/83 10/13/18 21:00 Nasal Cannula 2.0 01/08/18 20:54 85 01/08/18 20:51 106 131/83 01/08/18 20:00 97.9 85 20 114/68 (83) 96 97.9 01/08/18 16:00 97.8 83 20 125/75 (92) 97 97.8 Intake and Output 01/08/18 01/09/18 19:00 07:00 Intake Total 900 ml Output Total 1200 ml 500 ml Balance -300 ml -500 ml Intake Oral 900 ml Output Urine Total 1200 ml 500 ml # Voids 3 Laboratory Tests 01/09/18 07:10: White Blood Count 4.6L, Red Blood Count 2.91L, Hemoglobin 8.2L, Hematocrit 27.0L , Mean Corpuscular Volume 93, Mean Corpuscular Hemoglobin 28.1, Mean Corpuscular Hemoglobin Concent 30.3L, Red Cell Distribution Width 19.1H, Platelet Count 146L, Mean Platelet Volume 7.3, Neutrophils (%) (Auto) 63.3, Lymphocytes (%) (Auto) 18.8L, Monocytes (%) (Auto) 10.1H, Eosinophils (%) (Auto ) 7.4H, Basophils (%) (Auto) 0.5, Sodium Level 143, Potassium Level 3.4L, Chloride Level 104, Carbon Dioxide Level 33H, Anion Gap 6, Blood Urea Nitrogen 40H, Creatinine 1.8H, Estimat Glomerular Filtration Rate , Glucose Level 80, Calcium Level 8.0L, Phosphorus Level 3.1, Magnesium Level 1.7L Height (Feet): 5 Height (Inches): 6.00 Weight (Pounds): 200 Objective General Appearance: WD/WN, no apparent distress, alert, lethargic EENT: PERRL/EOMI, normal ENT inspection, TMs normal, pharynx normal Neck: non-tender, normal alignment, supple, normal inspection Cardiovascular: normal rate, regular rhythm, regularly irregular, no gallop/ murmur, JVD Respiratory/Chest: lungs clear, normal breath sounds, no respiratory distress, no accessory muscle use, crackles/rales Abdomen: normal bowel sounds, non tender, soft Extremities: non-tender, swelling Edema: no edema noted Arm (L); 3+ Arm (R), 3+ Leg (L), 3+ Leg (R), 3+ Pedal (L) , 3+ Pedal (R), 3+ Generalized Edema: severe edema 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
--- NOTE | 2018-01-09 15:59 | Pulmonology Progress Note ---
Assessment/Plan Assessment/Plan PROBLEM LIST: 1. Bilateral lower extremity and right upper extremity DVT. 2. Possible PE. 3. Congestive heart failure with severe systolic dysfunction (ejection fraction 10 to 15 %) and acute decompensated heart failure. 4. Atrial fibrillation. 5. CKD. 6. Cirrhosis. 7. Hepatorenal syndrome. 8. citrobacter urinary tract infection. 9. Leukopenia. 10. Anemia. 11. Enterobacter bacteremia TREATMENT PLAN: 1. ACH 2. o2 3. Monitor volumes and renal function, diuresis as tolerated. 4. Aspiration precautions. 5. Medical management of CHF per cards, declines life vest 6. DVT prophylaxis. The patient is on anticoagulation. 7. diuresis as tolerated 8. CXR prn 9. DC planning Subjective Constitutional: Reports: no symptoms HEENT: Repors: no symptoms Respiratory: Reports: no symptoms Cardiovascular: Reports: no symptoms Allergies: Coded Allergies: No Known Allergies (Unverified , 08/30/17) Subjective improving no events over night no cp nv or bleeding tolerating po oob to chair cough is dry on o2 Objective Last 24 Hour Vital Signs Date Time Temp Pulse Resp B/P (MAP) Pulse Ox O2 Delivery O2 Flow Rate FiO2 01/09/18 13:12 138/79 01/09/18 12:00 97.8 89 17 138/79 (98) 100 97.8 01/09/18 09:42 Nasal Cannula 2.0 01/09/18 08:52 125/67 01/09/18 08:52 87 125/67 01/09/18 08:48 97.6 86 18 132/70 (90) 100 97.6 01/09/18 08:00 97.4 86 18 132/70 (90) 100 97.4 01/09/18 05:42 114/68 01/09/18 04:00 98.2 90 20 114/68 (83) 99 98.2 01/09/18 00:00 97.6 99 20 128/68 (88) 99 97.6 01/08/18 21:01 131/83 01/08/18 21:00 Nasal Cannula 2.0 01/08/18 20:54 85 01/08/18 20:51 106 131/83 01/08/18 20:00 97.9 85 20 114/68 (83) 96 97.9 01/08/18 16:00 97.8 83 20 125/75 (92) 97 97.8 Intake and Output 01/08/18 01/09/18 19:00 07:00 Intake Total 900 ml Output Total 1200 ml 500 ml Balance -300 ml -500 ml Intake Oral 900 ml Output Urine Total 1200 ml 500 ml # Voids 3 General Appearance: cachetic HEENT: atraumatic, anicteric Respiratory/Chest: rhonchi Cardiovascular: normal rate, regular rhythm Abdomen: soft, non tender Extremities: no cyanosis, no clubbing Neurologic/Psychiatric: oriented x 3 Laboratory Tests 01/09/18 07:10: White Blood Count 4.6L, Red Blood Count 2.91L, Hemoglobin 8.2L, Hematocrit 27.0L , Mean Corpuscular Volume 93, Mean Corpuscular Hemoglobin 28.1, Mean Corpuscular Hemoglobin Concent 30.3L, Red Cell Distribution Width 19.1H, Platelet Count 146L, Mean Platelet Volume 7.3, Neutrophils (%) (Auto) 63.3, Lymphocytes (%) (Auto) 18.8L, Monocytes (%) (Auto) 10.1H, Eosinophils (%) (Auto ) 7.4H, Basophils (%) (Auto) 0.5, Sodium Level 143, Potassium Level 3.4L, Chloride Level 104, Carbon Dioxide Level 33H, Anion Gap 6, Blood Urea Nitrogen 40H, Creatinine 1.8H, Estimat Glomerular Filtration Rate , Glucose Level 80, Calcium Level 8.0L, Phosphorus Level 3.1, Magnesium Level 1.7L Current Medications Medications (Trade) Dose Ordered Sig/Saul Route PRN Reason Start Time Stop Time Status Last Admin Dose Admin Acetaminophen (Tylenol) 650 mg Q6H PRN ORAL Mild Pain/Temp > 100.5 01/09/18 05:00 02/04/18 16:55 Carvedilol (Coreg) 3.125 mg EVERY 12 HOURS ORAL 01/09/18 09:00 02/04/18 08:59 01/09/18 08:52 Furosemide (Lasix) 40 mg EVERY 12 HOURS IV 01/09/18 09:00 02/04/18 08:59 01/09/18 08:54 Hydralazine HCl (Apresoline) 25 mg EVERY 8 HOURS ORAL 01/09/18 06:00 02/04/18 05:59 01/09/18 13:12 Isosorbide Mononitrate (Imdur) 30 mg DAILY ORAL 01/09/18 09:00 02/05/18 08:59 01/09/18 08:52 Lactulose (Cephulac) 30 gm TIDPRN PRN ORAL bm 01/09/18 09:15 02/04/18 09:14 Magnesium Sulfate 100 ml @ 100 mls/hr Q1H IVPB 01/09/18 14:00 01/09/18 16:59 01/09/18 14:55 Metolazone (Zaroxolyn) 2.5 mg DAILY ORAL 01/09/18 09:00 02/05/18 08:59 01/09/18 08:56 Pantoprazole (Protonix) 40 mg EVERY 12 HOURS ORAL 01/09/18 09:00 02/04/18 08:59 01/09/18 08:52 Potassium Chloride (K-Dur) 20 meq ONCE ORAL 01/09/18 15:45 01/09/18 16:45 Rifaximin (Xifaxan) 550 mg EVERY 12 HOURS ORAL 01/09/18 09:00 01/12/18 09:14 01/09/18 08:51 Rivaroxaban (Xarelto) 15 mg BID ORAL 01/09/18 09:00 02/06/18 08:59 01/09/18 08:52 Sevelamer Carbonate (Renvela) 800 mg THREE TIMES A DAY ORAL 01/09/18 09:00 02/04/18 08:59 01/09/18 13:11 Temazepam (Restoril) 15 mg HSPRN PRN ORAL Insomnia 01/09/18 23:30 01/12/18 23:29 Sally Chamorro DO Jan 09, 2018 15:59
--- NOTE | 2018-01-09 17:14 | General Progress Note ---
Assessment/Plan Status: stable Assessment/Plan #. Right arm dvt along with bilateral dvt of the lower extremity DVT with progression on xarelto (though after review of further info does not appear to have been on anticoagulation when received right arm dvt) --> likely will need transition to coumadin or can continue xarelto once discharged (will write script for either/or) --> for PE does not need any further imaging, as anticoagulation wouldn't change --> will trend cbc and okay to start coumadin inr goal 2-3 --> Currently on rivaroxaban #. 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 Hepatitis and human immunodeficiency virus are negative --> Counts in line with historical values over time, continues to persist --> Ultrasound of the abdomen from last admission showed cirrhosis/HSM --> Tumor markers reviewed and are negative from before. --> Likely leukopenia secondary to splenomegaly. Give neupogen if ANC <1000 --> s/p paracentesis, 11/22: S/P paracentesis, yielding 5.9L of fluid. cytology though in prior was negative #. Anemia due to underlying chronic disease, appears to be stable. --> anemia w/u if hgb worsens, consider transfusion prn --> Current Hgb of 8.2, stable. #. Coagulopathy, likely related to underlying cirrhosis of the liver. --> Vit K prn basis, given by GI #. Hyperkalemia, given Kayexalate, currently has improved. #. Biventricular failure with severe pulmonary hypertension. The patient has seen by Cardiology. #. Ascites --> S/P paracentesis, yielding 5.9 liters of fluid, 11/26 --> may need to repeat prn The time the note was entered does not necessarily correspond to the time the patient was seen. Subjective Date patient seen: Jan 09, 2018 Hematologic/Lymphatic: Reports: anemia Allergies: Coded Allergies: No Known Allergies (Unverified , 08/30/17) All Systems: reviewed and negative except above Subjective Pt awake and alert. No acute events. Remains on rivaroxaban. H/H stable. VS stable. Objective Last 24 Hour Vital Signs Date Time Temp Pulse Resp B/P (MAP) Pulse Ox O2 Delivery O2 Flow Rate FiO2 01/09/18 16:00 98.0 81 17 105/74 (84) 100 98.0 10/14/18 13:12 138/79 01/09/18 12:00 97.8 89 17 138/79 (98) 100 97.8 01/09/18 09:42 Nasal Cannula 2.0 01/09/18 08:52 125/67 01/09/18 08:52 87 125/67 01/09/18 08:48 97.6 86 18 132/70 (90) 100 97.6 01/09/18 08:00 97.4 86 18 132/70 (90) 100 97.4 01/09/18 05:42 114/68 01/09/18 04:00 98.2 90 20 114/68 (83) 99 98.2 01/09/18 00:00 97.6 99 20 128/68 (88) 99 97.6 01/08/18 21:01 131/83 01/08/18 21:00 Nasal Cannula 2.0 01/08/18 20:54 85 01/08/18 20:51 106 131/83 01/08/18 20:00 97.9 85 20 114/68 (83) 96 97.9 Intake and Output 01/08/18 01/09/18 19:00 07:00 Intake Total 900 ml Output Total 1200 ml 500 ml Balance -300 ml -500 ml Intake Oral 900 ml Output Urine Total 1200 ml 500 ml # Voids 3 Laboratory Tests 01/09/18 07:10: White Blood Count 4.6L, Red Blood Count 2.91L, Hemoglobin 8.2L, Hematocrit 27.0L , Mean Corpuscular Volume 93, Mean Corpuscular Hemoglobin 28.1, Mean Corpuscular Hemoglobin Concent 30.3L, Red Cell Distribution Width 19.1H, Platelet Count 146L, Mean Platelet Volume 7.3, Neutrophils (%) (Auto) 63.3, Lymphocytes (%) (Auto) 18.8L, Monocytes (%) (Auto) 10.1H, Eosinophils (%) (Auto ) 7.4H, Basophils (%) (Auto) 0.5, Sodium Level 143, Potassium Level 3.4L, Chloride Level 104, Carbon Dioxide Level 33H, Anion Gap 6, Blood Urea Nitrogen 40H, Creatinine 1.8H, Estimat Glomerular Filtration Rate , Glucose Level 80, Calcium Level 8.0L, Phosphorus Level 3.1, Magnesium Level 1.7L Height (Feet): 5 Height (Inches): 6.00 Weight (Pounds): 200 General Appearance: no apparent distress EENT: PERRL/EOMI Neck: normal alignment Cardiovascular: normal peripheral pulses Respiratory/Chest: no respiratory distress Abdomen: soft Objective petoichae is ntoed throughout Christiano Hoffmann MD Jan 09, 2018 17:14
[2018-01-10] VITALS (10 sets, daily range): BP systolic 101–165; BP diastolic 51–75
[2018-01-10] MEDS: HydrALAZINE 25mg tab ORAL SCH ×3 (05:22→22:00)
--- NOTE | 2018-01-10 08:15 | General Progress Note ---
Assessment/Plan Assessment/Plan #. Right arm dvt along with bilateral dvt of the lower extremity DVT with progression on xarelto (though after review of further info does not appear to have been on anticoagulation when received right arm dvt) --> will need xarelto once discharged (will write script) --> for PE does not need any further imaging, as anticoagulation wouldn't change --> Currently on rivaroxaban and continue x lifelong #. 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 Hepatitis and human immunodeficiency virus are negative --> Counts in line with historical values over time, continues to persist --> Ultrasound of the abdomen from last admission showed cirrhosis/HSM --> Tumor markers reviewed and are negative from before. --> Likely leukopenia secondary to splenomegaly. Give neupogen if ANC <1000 --> s/p paracentesis, 11/22: S/P paracentesis, yielding 5.9L of fluid. cytology though in prior was negative #. Anemia due to underlying chronic disease, appears to be stable. --> anemia w/u if hgb worsens, consider transfusion prn --> Current Hgb of 8.2, stable. #. Coagulopathy, likely related to underlying cirrhosis of the liver. --> Vit K prn basis, given by GI #. Hyperkalemia, given Kayexalate, currently has improved. #. Biventricular failure with severe pulmonary hypertension. The patient has seen by Cardiology. #. Ascites --> S/P paracentesis, yielding 5.9 liters of fluid, 11/26 --> may need to repeat prn The time the note was entered does not necessarily correspond to the time the patient was seen. Subjective Constitutional: Reports: no symptoms HEENT: Reports: no symptoms Cardiovascular: Reports: no symptoms Respiratory: Reports: no symptoms Gastrointestinal/Abdominal: Reports: no symptoms Genitourinary: Reports: no symptoms Neurologic/Psychiatric: Reports: no symptoms Endocrine: Reports: unexplained weight loss Hematologic/Lymphatic: Reports: anemia Allergies: Coded Allergies: No Known Allergies (Unverified , 08/30/17) Subjective Remains on rivaroxaban. H/H stable. VS stable. Objective Last 24 Hour Vital Signs Date Time Temp Pulse Resp B/P (MAP) Pulse Ox O2 Delivery O2 Flow Rate FiO2 01/10/18 06:00 145/68 (93) 01/10/18 05:22 165/68 01/10/18 04:00 97.9 88 18 165/68 (100) 100 97.9 01/10/18 00:00 97.9 75 18 101/59 (73) 100 97.9 01/09/18 22:22 122/76 01/09/18 21:00 Nasal Cannula 2.0 01/09/18 20:17 97 122/76 01/09/18 20:00 98.0 97 18 122/76 (91) 100 98.0 01/09/18 16:00 98.0 81 17 105/74 (84) 100 98.0 01/09/18 13:12 138/79 01/09/18 12:00 97.8 89 17 138/79 (98) 100 97.8 01/09/18 09:42 Nasal Cannula 2.0 01/09/18 08:52 125/67 01/09/18 08:52 87 125/67 01/09/18 08:48 97.6 86 18 132/70 (90) 100 97.6 Intake and Output 01/09/18 01/10/18 19:00 07:00 Intake Total 920 ml 200 ml Output Total 2600 ml Balance 920 ml -2400 ml Intake Oral 720 ml 200 ml IV Total 200 ml Output Urine Total 2600 ml # Voids 4 Height (Feet): 5 Height (Inches): 6.00 Weight (Pounds): 200 General Appearance: alert EENT: TMs normal Neck: normal inspection Cardiovascular: regular rhythm Respiratory/Chest: normal breath sounds Abdomen: non tender Extremities: non-tender Edema: 1+ Leg (L), 1+ Leg (R) Neurologic: oriented x 3 Skin: warm/dry Objective petoichae is ntoed throughout Christiano Hoffmann MD Jan 10, 2018 08:15
[2018-01-10] MEDS: Xarelto 15mg tab ORAL SCH ×2 (09:03→18:00)
[2018-01-10] MEDS: Imdur 30mg tab ORAL SCH (09:04)
[2018-01-10] MEDS: metOLazone 2.5 MG TAB ORAL SCH (09:12)
--- NOTE | 2018-01-10 10:27 | Cardiology Progress Note ---
Assessment/Plan Status: stable Assessment/Plan (1) CHF (congestive heart failure), NYHA class IV (2) right arm edema (3) Cirrhosis (4) CKD (chronic kidney disease) (5) Afib (6) DVT (deep venous thrombosis) Systolic dysfunction Previously arranged life vest but patient did not want Continue fluid restriction, NA <2 g/day Lasix/Metolazone to reduce PA pressure and filling pressures Continue goal directed medical therapy: Coreg BID, Hydralazine/Imdur DVT Continue anticoagulation for AFIB and DVT -> xarelto Evaluate for PE per primary - V/Q scan ordered but patient can not lay flat, CTA not done due to renal function -> patient on anticoagulation, will not change person at this time Afib No indication for cardioversion or ablation Continue rate control and anticoagulation -> xarelto Cirrhosis Monitor Continue lactulose prn Consider paracentesis Pleural effusion Continue diuresis May need thoracentesis Poor prognosis, consider hospice Ok to discharge Subjective Cardiovascular: Reports: no symptoms Respiratory: Reports: no symptoms Gastrointestinal/Abdominal: Reports: no symptoms Genitourinary: Reports: no symptoms Subjective Transferred to floor, Patient refuses to participate in Physical therapy, NO acute events, patient could not lay flat for V/Q scan, on heparin gtt for hx of DVT. Echo with end stage cardiomyopathy, vitals stable Patient currently awake and comfortable, no s/s of any distress, denies any pain Objective Last 24 Hour Vital Signs Date Time Temp Pulse Resp B/P (MAP) Pulse Ox O2 Delivery O2 Flow Rate FiO2 01/10/18 09:16 95 126/68 (87) 01/10/18 09:04 126/68 01/10/18 09:04 95 126/68 01/10/18 08:00 97.7 92 119/62 (81) 97.7 01/10/18 06:00 145/68 (93) 01/10/18 05:22 165/68 01/10/18 04:00 97.9 88 18 165/68 (100) 100 97.9 01/10/18 00:00 97.9 75 18 101/59 (73) 100 97.9 01/09/18 22:22 122/76 01/09/18 21:00 Nasal Cannula 2.0 01/09/18 20:17 97 122/76 01/09/18 20:00 98.0 97 18 122/76 (91) 100 98.0 01/09/18 16:00 98.0 81 17 105/74 (84) 100 98.0 01/09/18 13:12 138/79 01/09/18 12:00 97.8 89 17 138/79 (98) 100 97.8 General Appearance: no apparent distress, alert, thin EENT: PERRL/EOMI, TMs normal, pharynx normal, scleral icterus, pale conjunctivae Neck: non-tender, normal alignment, supple, JVD Rhythm: Afib Cardiovascular: normal peripheral pulses, normal rate, diastolic murmur, systolic murmur, gallop/S3, gallop/S4, arrhythmia Respiratory/Chest: chest wall non-tender, lungs clear Abdomen: normal bowel sounds, non tender, soft Extremities: normal range of motion, non-tender Neurologic: leasing agent II-XII grossly normal, abnormal CN, motor weakness, sensory deficit Intake and Output 01/09/18 01/10/18 19:00 07:00 Intake Total 920 ml 200 ml Output Total 2600 ml Balance 920 ml -2400 ml Intake Oral 720 ml 200 ml IV Total 200 ml Output Urine Total 2600 ml # Voids 4 Kieran Cedillo MD Jan 10, 2018 10:27
[2018-01-10 11:11] LABS: INR 1.6 (0.9-1.1)
--- NOTE | 2018-01-10 12:51 | General Progress Note ---
Assessment/Plan Problem List: (1) CHF exacerbation ICD Codes: I50.9 - Heart failure, unspecified SNOMED: 77213751 (2) Atrial fibrillation with RVR ICD Codes: I48.91 - Unspecified atrial fibrillation SNOMED: 598042127020210 (3) Iron deficiency ICD Codes: E61.1 - Iron deficiency SNOMED: 52693236 (4) UTI (urinary tract infection) ICD Codes: N39.0 - Urinary tract infection, site not specified SNOMED: 30514916 (5) Cirrhosis ICD Codes: K74.60 - Unspecified cirrhosis of liver SNOMED: 27317784 (6) DVT (deep venous thrombosis) ICD Codes: I82.409 - Acute embolism and thrombosis of unspecified deep veins of unspecified lower extremity SNOMED: 887674353 Assessment/Plan CHF class IV - continue cardiac meds - xr consistent with fluid overload, slight improvement - c/w lasix (Cr now 1.8) - last echo shows ef 10-25 % , rvsp 70 - appreciate cardiology reqs - replete lytes cautiously Right Arm edema with B/L LE DVT's - appreciate heme recs - xarelto 15 mg po bid for 21 days then 15 mg po daily - vq scan and CT chest per pulm -> unable to complete because patient unable to lie flat Afib - HR goal < 100 - anticoagulation Cirrhosis - medical management CKD - medical management - trend chem - caution w/ diuresis - avoid nephro tox meds Iron deficiency anemia and Anemia of Chronic Disease CODE STATUS- DNR DNI Dispo planning - SNF - CM consult Per note from 01/09: have attempted to find contact information for family, [facility] they have no information for family members either Subjective Date patient seen: Jan 10, 2018 Time patient seen: 12:44 Allergies: Coded Allergies: No Known Allergies (Unverified , 08/30/17) Subjective Pt seen and examined. No new issues, feeling some abdominal pain. Objective Last 24 Hour Vital Signs Date Time Temp Pulse Resp B/P (MAP) Pulse Ox O2 Delivery O2 Flow Rate FiO2 01/10/18 09:16 95 126/68 (87) 01/10/18 09:04 126/68 01/10/18 09:04 95 126/68 01/10/18 09:00 Nasal Cannula 2.0 10/15/18 08:00 97.7 92 119/62 (81) 97.7 01/10/18 06:00 145/68 (93) 01/10/18 05:22 165/68 01/10/18 04:00 97.9 88 18 165/68 (100) 100 97.9 01/10/18 00:00 97.9 75 18 101/59 (73) 100 97.9 01/09/18 22:22 122/76 01/09/18 21:00 Nasal Cannula 2.0 01/09/18 20:17 97 122/76 01/09/18 20:00 98.0 97 18 122/76 (91) 100 98.0 01/09/18 16:00 98.0 81 17 105/74 (84) 100 98.0 01/09/18 13:12 138/79 Intake and Output 01/09/18 01/10/18 19:00 07:00 Intake Total 920 ml 200 ml Output Total 2600 ml Balance 920 ml -2400 ml Intake Oral 720 ml 200 ml IV Total 200 ml Output Urine Total 2600 ml # Voids 4 Laboratory Tests 01/10/18 10:45: Prothrombin Time 16.7H, Prothromb Time International Ratio 1.6H Height (Feet): 5 Height (Inches): 6.00 Weight (Pounds): 200 General Appearance: no apparent distress, alert EENT: pharynx normal Neck: non-tender, supple, normal inspection Cardiovascular: normal rate, regular rhythm Respiratory/Chest: lungs clear, normal breath sounds Abdomen: normal bowel sounds, soft Extremities: normal range of motion, non-tender Edema: no edema noted Arm (L), no edema noted Arm (R), no edema noted Leg (L), no edema noted Leg (R) Neurologic: no motor/sensory deficits, alert, oriented x 3, responsive Skin: normal pigmentation, warm/dry Magdy Freed D.O. Jan 10, 2018 12:51
--- NOTE | 2018-01-10 12:52 | Pulmonology Progress Note ---
Assessment/Plan Problems: (1) CHF (congestive heart failure), NYHA class IV (2) CHF exacerbation (3) Systolic and diastolic CHF, acute (4) 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 hypertension (5) Severe mitral regurgitation (6) Afib (7) right arm edema (8) DVT (deep venous thrombosis) Assessment/Plan ASSESSMENT: The patient is an 82-year-old male skilled nursing resident with a history of congestive heart failure with severe systolic dysfunction, ischemic cardiomyopathy, atrial fibrillation, CKD, cirrhosis, hepatorenal syndrome, prior DVT, presenting with lower extremity DVT and upper extremity DVT in the setting of anticoagulation. It is unclear if he has a PE or not as his shortness of breath may be secondary to decompensated heart failure. Nonetheless, he needs to be anticoagulated and given his abnormal renal function I would not get a CT angio of the chest. PROBLEM LIST: 1. Bilateral lower extremity and right upper extremity DVT. 2. Possible PE. 3. Congestive heart failure with severe systolic dysfunction (ejection fraction 10 to 15 %) and acute decompensated heart failure. 4. Atrial fibrillation. 5. CKD. 6. Cirrhosis. 7. Hepatorenal syndrome. 8. Gram-negative bacillus urinary tract infection. 9. Leukopenia. 10. Anemia. 11. Enterobacter bacteremia TREATMENT PLAN: 1. Continue Xarelto 2. Monitor volumes and renal function, diuresis as tolerated. 3. Aspiration precautions. 4. Medical management of CHF per cards, declines life vest 5. DVT prophylaxis. The patient is on anticoagulation. Subjective Allergies: Coded Allergies: No Known Allergies (Unverified , 08/30/17) Subjective AFVSS, stable O2 needs, natalie AC Less SOB, no cough, occ CP, less KENNY Objective Last 24 Hour Vital Signs Date Time Temp Pulse Resp B/P (MAP) Pulse Ox O2 Delivery O2 Flow Rate FiO2 01/10/18 09:16 95 126/68 (87) 01/10/18 09:04 126/68 01/10/18 09:04 95 126/68 01/10/18 09:00 Nasal Cannula 2.0 01/10/18 08:00 97.7 92 119/62 (81) 97.7 01/10/18 06:00 145/68 (93) 01/10/18 05:22 165/68 01/10/18 04:00 97.9 88 18 165/68 (100) 100 97.9 01/10/18 00:00 97.9 75 18 101/59 (73) 100 97.9 01/09/18 22:22 122/76 01/09/18 21:00 Nasal Cannula 2.0 01/09/18 20:17 97 122/76 01/09/18 20:00 98.0 97 18 122/76 (91) 100 98.0 01/09/18 16:00 98.0 81 17 105/74 (84) 100 98.0 01/09/18 13:12 138/79 Intake and Output 01/09/18 01/10/18 19:00 07:00 Intake Total 920 ml 200 ml Output Total 2600 ml Balance 920 ml -2400 ml Intake Oral 720 ml 200 ml IV Total 200 ml Output Urine Total 2600 ml # Voids 4 General Appearance: WD/WN, no acute distress HEENT: normocephalic, atraumatic, anicteric, mucous membranes moist Respiratory/Chest: chest wall non-tender, lungs clear, normal breath sounds, no respiratory distress Cardiovascular: normal peripheral pulses, normal rate, regular rhythm Abdomen: normal bowel sounds, soft, non tender, no organomegaly, non distended , no mass Extremities: no cyanosis, no clubbing, no edema Laboratory Tests 01/10/18 10:45: Prothrombin Time 16.7H, Prothromb Time International Ratio 1.6H Current Medications Medications (Trade) Dose Ordered Sig/Saul Route PRN Reason Start Time Stop Time Status Last Admin Dose Admin Acetaminophen (Tylenol) 650 mg Q6H PRN ORAL Mild Pain/Temp > 100.5 01/09/18 05:00 02/04/18 16:55 01/10/18 04:20 Carvedilol (Coreg) 3.125 mg EVERY 12 HOURS ORAL 01/09/18 09:00 02/04/18 08:59 01/10/18 09:04 Furosemide (Lasix) 40 mg EVERY 12 HOURS IV 01/09/18 09:00 02/04/18 08:59 01/10/18 09:05 Hydralazine HCl (Apresoline) 25 mg EVERY 8 HOURS ORAL 01/09/18 06:00 02/04/18 05:59 01/10/18 05:22 Isosorbide Mononitrate (Imdur) 30 mg DAILY ORAL 01/09/18 09:00 02/05/18 08:59 01/10/18 09:04 Lactulose (Cephulac) 30 gm TIDPRN PRN ORAL bm 01/09/18 09:15 02/04/18 09:14 Metolazone (Zaroxolyn) 2.5 mg DAILY ORAL 01/09/18 09:00 02/05/18 08:59 01/10/18 09:12 Pantoprazole (Protonix) 40 mg EVERY 12 HOURS ORAL 01/09/18 09:00 02/04/18 08:59 01/10/18 09:03 Rifaximin (Xifaxan) 550 mg EVERY 12 HOURS ORAL 01/09/18 09:00 01/12/18 09:14 01/10/18 09:04 Rivaroxaban (Xarelto) 15 mg BID ORAL 01/09/18 09:00 02/06/18 08:59 01/10/18 09:03 Sevelamer Carbonate (Renvela) 800 mg THREE TIMES A DAY ORAL 01/09/18 09:00 02/04/18 08:59 01/10/18 09:03 Temazepam (Restoril) 15 mg HSPRN PRN ORAL Insomnia 01/09/18 22:15 01/12/18 22:14 01/09/18 22:22 Sanford Amin MD Jan 10, 2018 12:51
[2018-01-10] MEDS ORDERED: NS 275ml ONE (15:31)
[2018-01-10] MEDS ORDERED: Tubing IV Secondary IV ONE (15:31)
--- NOTE | 2018-01-10 23:01 | General Progress Note ---
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 anxiety insomnia temazepam 15mg qhs prn metabolizes thru renal sys Subjective Neurologic/Psychiatric: Reports: anxiety, depressed Allergies: Coded Allergies: No Known Allergies (Unverified , 08/30/17) Objective Last 24 Hour Vital Signs Date Time Temp Pulse Resp B/P (MAP) Pulse Ox O2 Delivery O2 Flow Rate FiO2 01/10/18 16:00 98.6 94 116/75 (89) 99 98.6 01/10/18 13:40 94 116/51 (72) 01/10/18 13:28 116/51 01/10/18 13:20 94 116/51 (72) 01/10/18 12:00 97.7 92 18 111/72 (85) 100 97.7 01/10/18 09:16 95 126/68 (87) 01/10/18 09:04 126/68 01/10/18 09:04 95 126/68 01/10/18 09:00 Nasal Cannula 2.0 01/10/18 08:00 97.7 92 119/62 (81) 97.7 01/10/18 06:00 145/68 (93) 01/10/18 05:22 165/68 01/10/18 04:00 97.9 88 18 165/68 (100) 100 97.9 01/10/18 00:00 97.9 75 18 101/59 (73) 100 97.9 Intake and Output 01/09/18 01/10/18 19:00 07:00 Intake Total 920 ml 200 ml Output Total 2600 ml Balance 920 ml -2400 ml Intake Oral 720 ml 200 ml IV Total 200 ml Output Urine Total 2600 ml # Voids 4 Laboratory Tests 01/10/18 10:45: Prothrombin Time 16.7H, Prothromb Time International Ratio 1.6H Height (Feet): 5 Height (Inches): 6.00 Weight (Pounds): 200 General Appearance: no apparent distress, alert Neurologic: oriented x 3, responsive, depressed affect Ziyad Ledezma MD Jan 10, 2018 23:01
[2018-01-11] VITALS (7 sets, daily range): BP systolic 100–126; BP diastolic 63–70
[2018-01-11] MEDS: HydrALAZINE 25mg tab ORAL SCH ×2 (05:57→13:41)
[2018-01-11 07:36] LABS: ANION GAP 4 mmol/L (5-15); BLOOD UREA NITROGEN 39 mg/dL (7-18); CALCIUM 8.2 MG/DL (8.5-10.1); CARBON DIOXIDE 35 MMOL/L (21-32); CHLORIDE 100 MMOL/L (98-107); CREATININE 1.8 MG/DL (0.55-1.30); POTASSIUM 3.6 MMOL/L (3.5-5.1); SODIUM 139 MMOL/L (136-145)
[2018-01-11] MEDS: Imdur 30mg tab ORAL SCH (09:27)
[2018-01-11] MEDS: metOLazone 2.5 MG TAB ORAL SCH (09:27)
[2018-01-11] MEDS: Xarelto 15mg tab ORAL SCH ×2 (09:27→18:36)
--- NOTE | 2018-01-11 10:36 | Pulmonology Progress Note ---
Assessment/Plan Problems: (1) CHF (congestive heart failure), NYHA class IV (2) CHF exacerbation (3) Systolic and diastolic CHF, acute (4) 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 hypertension (5) Severe mitral regurgitation (6) Afib (7) right arm edema (8) DVT (deep venous thrombosis) Assessment/Plan ASSESSMENT: The patient is an 82-year-old male alf resident with a history of congestive heart failure with severe systolic dysfunction, ischemic cardiomyopathy, atrial fibrillation, CKD, cirrhosis, hepatorenal syndrome, prior DVT, presenting with lower extremity DVT and upper extremity DVT in the setting of anticoagulation. It is unclear if he has a PE or not as his shortness of breath may be secondary to decompensated heart failure. Nonetheless, he needs to be anticoagulated and given his abnormal renal function I would not get a CT angio of the chest. PROBLEM LIST: 1. Bilateral lower extremity and right upper extremity DVT. 2. Possible PE. 3. Congestive heart failure with severe systolic dysfunction (ejection fraction 10 to 15 %) and acute decompensated heart failure. 4. Atrial fibrillation. 5. CKD. 6. Cirrhosis. 7. Hepatorenal syndrome. 8. Gram-negative bacillus urinary tract infection. 9. Leukopenia. 10. Anemia. 11. Enterobacter bacteremia TREATMENT PLAN: 1. Continue Xarelto 2. Monitor volumes and renal function, diuresis as tolerated. 3. Aspiration precautions. 4. Medical management of CHF per cards, declines life vest 5. DVT prophylaxis. The patient is on anticoagulation. Subjective Allergies: Coded Allergies: No Known Allergies (Unverified , 08/30/17) Subjective -5460, AFVSS, stable O2 needs, natalie AC Less SOB, no cough, occ CP, less KENNY Objective Last 24 Hour Vital Signs Date Time Temp Pulse Resp B/P (MAP) Pulse Ox O2 Delivery O2 Flow Rate FiO2 01/11/18 09:27 116/73 01/11/18 09:26 90 116/73 01/11/18 09:15 86 113/66 (82) 01/11/18 09:06 Nasal Cannula 2.0 01/11/18 08:15 97.9 86 18 111/70 (84) 98 97.9 01/11/18 05:57 121/81 01/11/18 04:00 98.1 86 18 104/69 (81) 100 98.1 10/16/18 00:00 98.2 95 18 100/63 (75) 97 98.2 01/10/18 22:00 111/73 01/10/18 21:00 Nasal Cannula 2.0 01/10/18 21:00 98 111/73 01/10/18 20:00 99.4 98 19 111/73 (86) 97 99.4 01/10/18 16:00 98.6 94 116/75 (89) 99 98.6 01/10/18 13:40 94 116/51 (72) 01/10/18 13:28 116/51 01/10/18 13:20 94 116/51 (72) 01/10/18 12:00 97.7 92 18 111/72 (85) 100 97.7 Intake and Output 01/10/18 01/11/18 19:00 07:00 Intake Total 480 ml 1160 ml Output Total 1600 ml 5500 ml Balance -1120 ml -4340 ml Intake Oral 480 ml 1160 ml Output Urine Total 1600 ml 5500 ml # Voids 4 General Appearance: WD/WN, no acute distress HEENT: normocephalic, atraumatic, anicteric, mucous membranes moist Respiratory/Chest: chest wall non-tender, lungs clear, normal breath sounds - but decreased @ bases, no respiratory distress Cardiovascular: normal peripheral pulses, normal rate, regular rhythm Abdomen: normal bowel sounds, soft, non tender, no organomegaly, non distended , no mass Extremities: no cyanosis, no clubbing, other - 1+ KENNY Laboratory Tests 01/10/18 10:45: Prothrombin Time 16.7H, Prothromb Time International Ratio 1.6H 01/11/18 06:45: Sodium Level 139, Potassium Level 3.6, Chloride Level 100, Carbon Dioxide Level 35H, Anion Gap 4L, Blood Urea Nitrogen 39H, Creatinine 1.8H, Estimat Glomerular Filtration Rate , Glucose Level 81, Calcium Level 8.2L Current Medications Medications (Trade) Dose Ordered Sig/Saul Route PRN Reason Start Time Stop Time Status Last Admin Dose Admin Acetaminophen (Tylenol) 650 mg Q6H PRN ORAL Mild Pain/Temp > 100.5 01/09/18 05:00 02/04/18 16:55 01/11/18 05:08 Carvedilol (Coreg) 3.125 mg EVERY 12 HOURS ORAL 01/09/18 09:00 02/04/18 08:59 01/11/18 09:26 Furosemide (Lasix) 40 mg EVERY 12 HOURS IV 01/09/18 09:00 02/04/18 08:59 01/11/18 09:22 Hydralazine HCl (Apresoline) 25 mg EVERY 8 HOURS ORAL 01/09/18 06:00 02/04/18 05:59 01/11/18 05:57 Isosorbide Mononitrate (Imdur) 30 mg DAILY ORAL 01/09/18 09:00 02/05/18 08:59 01/11/18 09:27 Lactulose (Cephulac) 30 gm TIDPRN PRN ORAL bm 01/09/18 09:15 02/04/18 09:14 Metolazone (Zaroxolyn) 2.5 mg DAILY ORAL 01/09/18 09:00 02/05/18 08:59 01/11/18 09:27 Pantoprazole (Protonix) 40 mg EVERY 12 HOURS ORAL 01/09/18 09:00 02/04/18 08:59 01/11/18 09:27 Rifaximin (Xifaxan) 550 mg EVERY 12 HOURS ORAL 01/09/18 09:00 01/12/18 09:14 01/11/18 09:27 Rivaroxaban (Xarelto) 15 mg BID ORAL 01/09/18 09:00 02/06/18 08:59 01/11/18 09:27 Sevelamer Carbonate (Renvela) 800 mg THREE TIMES A DAY ORAL 01/09/18 09:00 02/04/18 08:59 01/11/18 09:27 Temazepam (Restoril) 15 mg HSPRN PRN ORAL Insomnia 01/09/18 22:15 01/12/18 22:14 01/10/18 22:00 Sanfodr Amin MD Jan 11, 2018 10:36
[2018-01-11] MEDS ORDERED: RESTORIL15 MG ORAL (13:47)
[2018-01-11] MEDS ORDERED: ISOSORBIDE MONO30 M1 ORAL (13:47)
[2018-01-11] MEDS ORDERED: RENVELA800 MG ORAL (13:47)
[2018-01-11] MEDS ORDERED: ZAROXOLYN2.5 MG ORAL (13:47)
[2018-01-11] MEDS ORDERED: XARELTO15 MG ORAL (13:47)
--- NOTE | 2018-01-11 14:20 | Cardiology Progress Note ---
Assessment/Plan Status: stable Assessment/Plan (1) CHF (congestive heart failure), NYHA class IV (2) right arm edema (3) Cirrhosis (4) CKD (chronic kidney disease) (5) Afib (6) DVT (deep venous thrombosis) Systolic dysfunction Previously arranged life vest but patient did not want Continue fluid restriction, NA <2 g/day Lasix/Metolazone to reduce PA pressure and filling pressures Continue goal directed medical therapy: Coreg BID, Hydralazine/Imdur DVT Continue anticoagulation for AFIB and DVT -> xarelto Evaluate for PE per primary - V/Q scan ordered but patient can not lay flat, CTA not done due to renal function -> patient on anticoagulation, will not change management expert at this time Afib No indication for cardioversion or ablation Continue rate control and anticoagulation -> xarelto Cirrhosis Monitor Continue lactulose prn Consider paracentesis Pleural effusion Continue diuresis May need thoracentesis Poor prognosis, consider hospice Ok to discharge Subjective Cardiovascular: Reports: no symptoms Respiratory: Reports: no symptoms Gastrointestinal/Abdominal: Reports: no symptoms Genitourinary: Reports: no symptoms Subjective No acute events, no distress, no pain, tolerating PO, no complaints, improved Objective Last 24 Hour Vital Signs Date Time Temp Pulse Resp B/P (MAP) Pulse Ox O2 Delivery O2 Flow Rate FiO2 01/11/18 13:41 103 126/70 (88) 01/11/18 13:41 126/70 01/11/18 11:46 97.8 82 16 102/69 (80) 91 97.8 01/11/18 09:27 116/73 01/11/18 09:26 90 116/73 01/11/18 09:15 86 113/66 (82) 01/11/18 09:06 Nasal Cannula 2.0 01/11/18 08:15 97.9 86 18 111/70 (84) 98 97.9 01/11/18 05:57 121/81 01/11/18 04:00 98.1 86 18 104/69 (81) 100 98.1 01/11/18 00:00 98.2 95 18 100/63 (75) 97 98.2 01/10/18 22:00 111/73 01/10/18 21:00 Nasal Cannula 2.0 01/10/18 21:00 98 111/73 01/10/18 20:00 99.4 98 19 111/73 (86) 97 99.4 01/10/18 16:00 98.6 94 116/75 (89) 99 98.6 General Appearance: no apparent distress EENT: PERRL/EOMI, normal ENT inspection, scleral icterus Neck: non-tender, supple, normal inspection, JVD Rhythm: Afib Cardiovascular: normal peripheral pulses, normal rate, regularly irregular, diastolic murmur, systolic murmur, gallop/S3, gallop/S4, arrhythmia Respiratory/Chest: chest wall non-tender, lungs clear, normal breath sounds, no respiratory distress Abdomen: normal bowel sounds, distended, guarding, hepatomegaly, splenomegaly Extremities: normal range of motion, non-tender, normal inspection Neurologic: manager forensic II-XII grossly normal, no motor/sensory deficits, alert, oriented x 3 Intake and Output 01/10/18 01/11/18 19:00 07:00 Intake Total 480 ml 1160 ml Output Total 1600 ml 5500 ml Balance -1120 ml -4340 ml Intake Oral 480 ml 1160 ml Output Urine Total 1600 ml 5500 ml # Voids 4 Laboratory Tests Test 01/11/18 06:45 Sodium Level 139 MMOL/L (136-145) Potassium Level 3.6 MMOL/L (3.5-5.1) Chloride Level 100 MMOL/L (98-107) Carbon Dioxide Level 35 MMOL/L (21-32) H Anion Gap 4 mmol/L (5-15) L Blood Urea Nitrogen 39 mg/dL (7-18) H Creatinine 1.8 MG/DL (0.55-1.30) H Estimat Glomerular Filtration Rate mL/min (>60) Glucose Level 81 MG/DL (74-106) Calcium Level 8.2 MG/DL (8.5-10.1) L Kieran Cedillo MD Jan 11, 2018 14:20
--- NOTE | 2018-01-11 15:11 | Discharge Summary ---
Discharge Summary Hospital Course Date of Admission Jan 04, 2018 at 17:04 Date of Discharge Admitting Diagnosis SOB, DVT HPI 82 yo m with PMH of CHF (ef 10-15%, RVSP 70 on 10/13), cirrhosis, afib, B/L LE DVT's with multiple recent hospital admissions. Patients last admission was in -12/03/17 for abdominal distension and non compliance with medications. He was medically managed for cirrhosis and discharged to [facility]. Patient is unable to give a full history of change since his last hospital discharge. He states he was given medication but it is suspected that he has been non - compliant. It is possible patient was not taking xarelto for his afib and he presents with new right arm edema. Patient denies any chest pain at this time. He admits to occasional dyspnea. Patient denies heart palpitations. Patient has been full code however after further discussion of his cardiac status patient has chosen to be DNR DNI and is fully understanding. Hospital Course Assessment/Plan CHF class IV - continue cardiac meds - xr consistent with fluid overload, slight improvement - c/w lasix (Cr now 1.8) - last echo shows ef 10-25 % , rvsp 70 Right Arm edema with B/L LE DVT's - appreciate heme recs - xarelto 15 mg po bid for 21 days then 15 mg po daily - vq scan and CT chest per pulm -> unable to complete because patient unable to lie flat Afib - HR goal < 100 - anticoagulation Cirrhosis - medical management CKD - medical management - trend chem - caution w/ diuresis - avoid nephro tox meds Iron deficiency anemia and Anemia of Chronic Disease CODE STATUS- DNR DNI Dispo planning - [facility] - consult Per note from 01/09: have attempted to [facility] for [facility] have no information for family members either Discharge Condition Upon Discharge: improving Discharge Disposition Patient was scheduled to be discharged without complication. Discharge process took >35 mins. Discharge Diagnoses: (1) Renal insufficiency (2) UTI (urinary tract infection) (3) CHF exacerbation (4) DVT (deep venous thrombosis) Magdy Freed D.O. Jan 11, 2018 15:11
--- NOTE | 2018-01-11 17:34 | General Progress Note ---
Assessment/Plan Status: stable Assessment/Plan #. Right arm dvt along with bilateral dvt of the lower extremity DVT with progression on xarelto (though after review of further info does not appear to have been on anticoagulation when received right arm dvt) --> will need xarelto once discharged (will write script) --> for PE does not need any further imaging, as anticoagulation wouldn't change --> Currently on rivaroxaban and continue x lifelong #. 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 Hepatitis and human immunodeficiency virus are negative --> Counts in line with historical values over time, continues to persist --> Ultrasound of the abdomen from last admission showed cirrhosis/HSM --> Tumor markers reviewed and are negative from before. --> Likely leukopenia secondary to splenomegaly. Give neupogen if ANC <1000 --> s/p paracentesis, 11/22: S/P paracentesis, yielding 5.9L of fluid. cytology though in prior was negative #. Anemia due to underlying chronic disease, appears to be stable. --> anemia w/u if hgb worsens, consider transfusion prn --> Current Hgb of 8.2, stable. #. Coagulopathy, likely related to underlying cirrhosis of the liver. --> Vit K prn basis, given by GI #. Hyperkalemia, given Kayexalate, currently has improved. #. Biventricular failure with severe pulmonary hypertension. The patient has seen by Cardiology. #. Ascites --> S/P paracentesis, yielding 5.9 liters of fluid, 11/26 --> may need to repeat prn The time the note was entered does not necessarily correspond to the time the patient was seen. Subjective Date patient seen: Jan 11, 2018 Hematologic/Lymphatic: Reports: anemia Allergies: Coded Allergies: No Known Allergies (Unverified , 08/30/17) All Systems: reviewed and negative except above Subjective Pt awake and alert. No acute events. H/H stable. DC planning. Objective Last 24 Hour Vital Signs Date Time Temp Pulse Resp B/P (MAP) Pulse Ox O2 Delivery O2 Flow Rate FiO2 01/11/18 16:00 98.2 99 18 110/68 (82) 97 98.2 01/11/18 13:41 103 126/70 (88) 01/11/18 13:41 126/70 01/11/18 11:46 97.8 82 16 102/69 (80) 91 97.8 01/11/18 09:27 116/73 01/11/18 09:26 90 116/73 01/11/18 09:15 86 113/66 (82) 01/11/18 09:06 Nasal Cannula 2.0 01/11/18 08:15 97.9 86 18 111/70 (84) 98 97.9 01/11/18 05:57 121/81 01/11/18 04:00 98.1 86 18 104/69 (81) 100 98.1 01/11/18 00:00 98.2 95 18 100/63 (75) 97 98.2 01/10/18 22:00 111/73 01/10/18 21:00 Nasal Cannula 2.0 01/10/18 21:00 98 111/73 01/10/18 20:00 99.4 98 19 111/73 (86) 97 99.4 Intake and Output 01/10/18 01/11/18 19:00 07:00 Intake Total 480 ml 1160 ml Output Total 1600 ml 5500 ml Balance -1120 ml -4340 ml Intake Oral 480 ml 1160 ml Output Urine Total 1600 ml 5500 ml # Voids 4 Laboratory Tests 01/11/18 06:45: Sodium Level 139, Potassium Level 3.6, Chloride Level 100, Carbon Dioxide Level 35H, Anion Gap 4L, Blood Urea Nitrogen 39H, Creatinine 1.8H, Estimat Glomerular Filtration Rate , Glucose Level 81, Calcium Level 8.2L Height (Feet): 5 Height (Inches): 6.00 Weight (Pounds): 187 General Appearance: no apparent distress EENT: PERRL/EOMI Neck: normal alignment Cardiovascular: tachycardia Respiratory/Chest: no respiratory distress Abdomen: soft Objective petoichae is ntoed throughout Christiano Hoffmann MD Jan 11, 2018 17:34
--- NOTE | 2018-01-11 19:30 | Progress Note ---
DATE: 01/11/2018 SUBJECTIVE: The patient was in bed, sitting up, no acute distress. Calm. No behavior issues. He has some anxiety, was requesting when he will be discharged. Has poor insight into his medical condition. Compliant with medication. MENTAL STATUS EXAMINATION: Alert and oriented times self, place, and situation. Mood is anxious. Affect is constricted. Congruent with mood. Thought process is concrete. Thought content, no suicidal or homicidal ideation. ASSESSMENT: 1. Anxiety disorder. 2. Cognitive impairment. PLAN: 1. We will continue p.r.n. medication. 2. Provide the patient with supportive therapy and reality orientation. 3. We will continue to follow and readjust the medications. Ziyad Ledezma M.D. DR: Akbar JOB#: [id number] CC:
--- NOTE | 2018-01-11 21:42 | General Progress Note ---
Assessment/Plan Problem List: (1) CHF exacerbation ICD Codes: I50.9 - Heart failure, unspecified SNOMED: 39612410 (2) Atrial fibrillation with RVR ICD Codes: I48.91 - Unspecified atrial fibrillation SNOMED: 416424644574995 (3) Iron deficiency ICD Codes: E61.1 - Iron deficiency SNOMED: 46454661 (4) UTI (urinary tract infection) ICD Codes: N39.0 - Urinary tract infection, site not specified SNOMED: 68026294 (5) Cirrhosis ICD Codes: K74.60 - Unspecified cirrhosis of liver SNOMED: 12862599 (6) DVT (deep venous thrombosis) ICD Codes: I82.409 - Acute embolism and thrombosis of unspecified deep veins of unspecified lower extremity SNOMED: 512811738 Assessment/Plan CHF class IV - continue cardiac meds - xr consistent with fluid overload, slight improvement - c/w lasix (Cr now 1.8) - last echo shows ef 10-25 % , rvsp 70 - appreciate cardiology reqs - replete lytes cautiously Right Arm edema with B/L LE DVT's - appreciate heme recs - xarelto 15 mg po bid for 21 days then 15 mg po daily - vq scan and CT chest per pulm -> unable to complete because patient unable to lie flat Afib - HR goal < 100 - anticoagulation Cirrhosis - medical management CKD - medical management - trend chem - caution w/ diuresis - avoid nephro tox meds Iron deficiency anemia and Anemia of Chronic Disease CODE STATUS- DNR DNI Dispo planning - SNF - CM consult Per note from 01/09: have attempted to find contact information for family, [facility] states they have no information for family members either Subjective Date patient seen: Jan 11, 2018 Time patient seen: 11:00 Allergies: Coded Allergies: No Known Allergies (Unverified , 08/30/17) Subjective Pt seen and examined. No new issues, feeling okay. Objective Last 24 Hour Vital Signs Date Time Temp Pulse Resp B/P (MAP) Pulse Ox O2 Delivery O2 Flow Rate FiO2 01/11/18 16:00 98.2 99 18 110/68 (82) 97 98.2 01/11/18 13:41 103 126/70 (88) 01/11/18 13:41 126/70 01/11/18 11:46 97.8 82 16 102/69 (80) 91 97.8 01/11/18 09:27 116/73 01/11/18 09:26 90 116/73 01/11/18 09:15 86 113/66 (82) 01/11/18 09:06 Nasal Cannula 2.0 01/11/18 08:15 97.9 86 18 111/70 (84) 98 97.9 01/11/18 05:57 121/81 01/11/18 04:00 98.1 86 18 104/69 (81) 100 98.1 01/11/18 00:00 98.2 95 18 100/63 (75) 97 98.2 01/10/18 22:00 111/73 Intake and Output 01/10/18 01/11/18 19:00 07:00 Intake Total 480 ml 1160 ml Output Total 1600 ml 5500 ml Balance -1120 ml -4340 ml Intake Oral 480 ml 1160 ml Output Urine Total 1600 ml 5500 ml # Voids 4 Laboratory Tests 01/11/18 06:45: Sodium Level 139, Potassium Level 3.6, Chloride Level 100, Carbon Dioxide Level 35H, Anion Gap 4L, Blood Urea Nitrogen 39H, Creatinine 1.8H, Estimat Glomerular Filtration Rate , Glucose Level 81, Calcium Level 8.2L Height (Feet): 5 Height (Inches): 6.00 Weight (Pounds): 187 General Appearance: no apparent distress, alert EENT: PERRL/EOMI Neck: normal alignment, supple, normal inspection Cardiovascular: normal peripheral pulses, normal rate, regular rhythm Respiratory/Chest: lungs clear, normal breath sounds, no respiratory distress Abdomen: normal bowel sounds, non tender, soft Extremities: normal range of motion, non-tender, normal inspection Edema: no edema noted Arm (L), no edema noted Arm (R), no edema noted Leg (L), no edema noted Leg (R) Neurologic: alert, oriented x 3, responsive, normal mood/affect Skin: normal pigmentation, warm/dry Magdy Freed D.O. Jan 11, 2018 21:42
== END 2018-01-11 20:15 | DRG 194 ==
LOC: EDBD 14:51 → EMR 15:55 → EDBEDREQSVC 16:58 → EDBEDREQ 16:58 → 2W 17:04 → EDBEDREQ 17:45 → 2W 18:19 → 2E 01-05 16:55 → 4E 01-08 23:18
DX: I50.43 Acute on chronic combined systolic (congestive) and diastolic (congestive) heart failure (principal); I26.99 Other pulmonary embolism without acute cor pulmonale; K76.7 Hepatorenal syndrome; D61.818 Other pancytopenia; R78.81 Bacteremia; I82.403 Acute embolism and thrombosis of unspecified deep veins of lower extremity, bilateral; I82.621 Acute embolism and thrombosis of deep veins of right upper extremity; D68.4 Acquired coagulation factor deficiency; E87.5 Hyperkalemia; K70.31 Alcoholic cirrhosis of liver with ascites; D63.8 Anemia in other chronic diseases classified elsewhere; I27.20 Pulmonary hypertension, unspecified; N18.9 Chronic kidney disease, unspecified; I48.91 Unspecified atrial fibrillation; I34.0 Nonrheumatic mitral (valve) insufficiency; N39.0 Urinary tract infection, site not specified; B96.89 Other specified bacterial agents as the cause of diseases classified elsewhere; F10.21 Alcohol dependence, in remission; F41.9 Anxiety disorder, unspecified; G47.00 Insomnia, unspecified; D50.9 Iron deficiency anemia, unspecified; I25.5 Ischemic cardiomyopathy; Z66 Do not resuscitate
CPT/HCPCS: 36415; 36600; 71045; 71250; 80048; 80053; 81003; 82803; 83020; 83690; 83735; 83880; 84100; 84484; 85025; 85379; 85610; 85730; 87081; 87086; 87181; 93005; 93306; 93970; 93971; 96365; 96375; 99291; J8499

== ENCOUNTER 2018-04-07 13:32 | Inpatient (IN) | payer MEDICAID ==
[~2018-04-07] VITALS: Ht 170.2 cm; Wt 76.2 kg
[~2018-04-07 13:32] MED LIST changes: +ISOSORBIDE MONO30 M1 ORAL; +RESTORIL15 MG ORAL; +XARELTO15 MG ORAL; +ZAROXOLYN2.5 MG ORAL
--- NOTE | 2018-04-07 13:56 | Emergency Room Report ---
History of Present Illness General Chief Complaint: Syncope Source: Patient, Medical Record, EMS Present Illness HPI Patient presents emergency department today complaining of generalized weakness and episode of syncope. Patient apparently was unresponsive for about 3 minutes and reportedly had chest pain prior to the episode. Patient does not remember the episode states that he might have had a collapse. He denies any chest pain shortness breath at this time. Patient does not admit to having any medical issues however review of records show the patient has significant past medical history including ascites CHF. No other complaints are noted. Patient' s primary care physician is Dr. Cabrera. Patient currently stays at [facility].No other modifying factors. No other associated signs and symptoms. No other complaints were noted. Allergies: Coded Allergies: No Known Allergies (Unverified , 08/30/17) Patient History Past Medical History: HTN, CAD, GERD, other - Liver cirrhosis Past Surgical History: none Pertinent Family History: unable to obtain Social History Narrative alcohol at liver cirrhosis in the Past. No current drug use Reviewed Nursing Documentation: PMH: Agreed; PSxH: Agreed Nursing Documentation-PMH Hx Hypertension: Yes Hx Cancer: Yes - CIRRHOSIS LIVER Hx Gastrointestinal Problems: Yes - Alcoholic Cirrhosis; Reflux Hx Dialysis: No - CRD Hx Neurological Problems: No Hx Seizures: No - CKD Review of Systems All Other Systems: negative except mentioned in HPI Physical Exam Vital Signs Date Time Temp Pulse Resp B/P (MAP) Pulse Ox O2 Delivery O2 Flow Rate FiO2 04/07/18 13:27 97.5 81 18 108/58 95 Nasal Cannula 2.0 Sp02 EP Interpretation: reviewed, normal General Appearance: alert, Chronically Ill Head: normocephalic, atraumatic Eyes: bilateral eye normal inspection ENT: normal ENT inspection, hearing grossly normal, normal voice Neck: normal inspection, full range of motion, supple, no bony tend Respiratory: normal inspection, lungs clear, normal breath sounds, no respiratory distress, no retraction, no wheezing Cardiovascular #1: no edema, irregularly irregular Gastrointestinal: soft, no guarding, no hernia, distended - Ascites Genitourinary: no CVA tenderness Musculoskeletal: normal range of motion, other - Pedal edema Neurologic: normal inspection, alert, responsive, speech normal Psychiatric: depressed affect Skin: normal inspection, normal color, no rash Medical Decision Making Diagnostic Impression: Primary Impression: Syncope Additional Impression: ACS (acute coronary syndrome) ER Course Patient presents emergency department today with syncopal event. Differential considerations include acute CHF, acute arrhythmia, acute coronary syndrome, acute electrolyte abnormality just name a few.Given the severity of the patient' s presentation I felt this is a highly complex patient. This patient required extensive workup. Patient's laboratory workup show elevated troponin. Patient' s BNP was elevated. BUN/creatinine were also elevated. Because of this presentation I felt the patient required mission. Case was discussed in detail with Dr. Dawn and Dr. Barron. Patient will be admitted to telemetry for further treatment. Labs Test 04/07/18 14:00 White Blood Count 4.0 K/UL (4.8-10.8) Red Blood Count 3.60 M/UL (4.70-6.10) Hemoglobin 9.6 G/DL (14.2-18.0) Hematocrit 33.1 % (42.0-52.0) Mean Corpuscular Volume 92 FL (80-99) Mean Corpuscular Hemoglobin 26.7 PG (27.0-31.0) Mean Corpuscular Hemoglobin Concent 29.1 G/DL (32.0-36.0) Red Cell Distribution Width 19.6 % (11.6-14.8) Platelet Count 157 K/UL (150-450) Mean Platelet Volume 9.8 FL (6.5-10.1) Neutrophils (%) (Auto) 60.5 % (45.0-75.0) Lymphocytes (%) (Auto) 23.3 % (20.0-45.0) Monocytes (%) (Auto) 10.4 % (1.0-10.0) Eosinophils (%) (Auto) 3.8 % (0.0-3.0) Basophils (%) (Auto) 1.9 % (0.0-2.0) Urine Color Yellow Urine Appearance Slightly cloudy Urine pH 5 (4.5-8.0) Urine Specific [place] 1.020 (1.005-1.035) Urine Protein 3+ (NEGATIVE) Urine Glucose (UA) Negative (NEGATIVE) Urine Ketones Negative (NEGATIVE) Urine Blood 4+ (NEGATIVE) Urine Nitrite Negative (NEGATIVE) Urine Bilirubin Negative (NEGATIVE) Urine Urobilinogen Normal MG/DL (0.0-1.0) Urine Leukocyte Esterase 3+ (NEGATIVE) Urine RBC 10-15 /HPF (0 - 0) Urine WBC 40-60 /HPF (0 - 0) Urine Squamous Epithelial Cells Few /LPF (NONE/OCC) Urine Bacteria Few /HPF (NONE) Sodium Level 140 MMOL/L (136-145) Potassium Level 3.6 MMOL/L (3.5-5.1) Chloride Level 104 MMOL/L (98-107) Carbon Dioxide Level 24 MMOL/L (21-32) Anion Gap 12 mmol/L (5-15) Blood Urea Nitrogen 44 mg/dL (7-18) Creatinine 2.4 MG/DL (0.55-1.30) Estimat Glomerular Filtration Rate mL/min (>60) Glucose Level 87 MG/DL (74-106) Calcium Level 8.7 MG/DL (8.5-10.1) Total Bilirubin 0.9 MG/DL (0.2-1.0) Aspartate Amino Transf (AST/SGOT) 24 U/L (15-37) Alanine Aminotransferase (ALT/SGPT) 11 U/L (12-78) Alkaline Phosphatase 59 U/L (46-116) Total Creatine Kinase 115 U/L (26-308) Creatine Kinase MB 2.4 NG/ML (0.0-3.6) Creatine Kinase MB Relative Index 2.0 Troponin I 0.059 ng/mL (0.000-0.056) Pro-B-Type Natriuretic Peptide 79404 pg/mL (0-125) Total Protein 7.6 G/DL (6.4-8.2) Albumin 3.2 G/DL (3.4-5.0) Globulin 4.4 g/dL Albumin/Globulin Ratio 0.7 (1.0-2.7) Lipase 176 U/L (73-393) EKG Diagnostic Results Rate: normal Rhythm: other - Atrial fibrillation ST Segments: other - Left bundle branch block Rhythm Strip Diag. Results EP Interpretation: yes Rate: 68 Rhythm: no PVC's, other - Atrial fibrillation, no PVCs, no other ectopy Chest X-Ray Diagnostic Results Chest X-Ray Diagnostic Results : Chest X-Ray Ordered: Yes # of Views/Limited/Complete: 1 View Indication: Shortness of Breath EP Interpretation: Yes Interpretation: no consolidation, no effusion, other - Pulmonary congestion , card or megaly Impression: Other - CHF Electronically Signed by: Electronically signed by Kwaku Glaser MD Last Vital Signs Date Time Temp Pulse Resp B/P (MAP) Pulse Ox O2 Delivery O2 Flow Rate FiO2 04/07/18 13:27 97.5 81 18 108/58 95 Nasal Cannula 2.0 Disposition: ADMITTED INPATIENT Condition: Serious Kwaku Glaser MD Apr 07, 2018 13:56
[2018-04-07 14:25] LABS: BASOPHILS % (AUTO) 1.9 % (0.0-2.0); EOSINOPHILS % (AUTO) 3.8 % (0.0-3.0); HEMATOCRIT 33.1 % (42.0-52.0); HEMOGLOBIN 9.6 G/DL (14.2-18.0); LYMPHOCYTES % (AUTO) 23.3 % (20.0-45.0); MEAN CORPUSCULAR VOLUME 92 FL (80-99); MONOCYTES % (AUTO) 10.4 % (1.0-10.0); NEUTROPHILS % (AUTO) 60.5 % (45.0-75.0); PLATELET COUNT 157 K/UL (150-450); RED CELL DISTRIBUTION WIDTH 19.6 % (11.6-14.8)
[2018-04-07 14:28] LABS: APPEARANCE,URINE SLIGHTLY CLOUDY; BILIRUBIN, URINE NEGATIVE (NEGATIVE); GLUCOSE, URINE (UA) NEGATIVE (NEGATIVE); KETONES,URINE NEGATIVE (NEGATIVE); LEUKOCYTE ESTERASE ,URINE 3+ (NEGATIVE); NITRITE,URINE NEGATIVE (NEGATIVE); PH,URINE 5 (4.5-8.0); PROTEIN,URINE 3+ (NEGATIVE); UROBILINOGEN,URINE NORMAL MG/DL (0.0-1.0)
[2018-04-07 14:32] VITALS: BP 108/69
[2018-04-07 14:32] LABS: ANION GAP 12 mmol/L (5-15); BLOOD UREA NITROGEN 44 mg/dL (7-18); CALCIUM 8.7 MG/DL (8.5-10.1); CARBON DIOXIDE 24 MMOL/L (21-32); CHLORIDE 104 MMOL/L (98-107); CREATININE 2.4 MG/DL (0.55-1.30); POTASSIUM 3.6 MMOL/L (3.5-5.1); SODIUM 140 MMOL/L (136-145)
[2018-04-07 14:35] LABS: COLOR,URINE YELLOW
[2018-04-07 14:46] LABS: ALANINE AMINOTRANSFERASE 11 U/L (12-78); ALBUMIN 3.2 G/DL (3.4-5.0); ALBUMIN/GLOBULIN RATIO 0.7 (1.0-2.7); ALKALINE PHOSPHATASE 59 U/L (46-116); ASPARTATE AMINO TRANSFERASE 24 U/L (15-37); BILIRUBIN,TOTAL 0.9 MG/DL (0.2-1.0); CKMB 2.4 NG/ML (0.0-3.6); CREATINE KINASE 115 U/L (26-308)
[2018-04-07 15:44] VITALS: BP 110/64
[2018-04-07] MEDS ORDERED: IRON325 M1 PO (16:08)
[2018-04-07] MEDS ORDERED: ISOSORBIDE MONO20 MG PO (16:08)
[2018-04-07] MEDS ORDERED: METOPROLOL TART25 MG ORAL (16:08)
[2018-04-07] MEDS ORDERED: HYDROCODON-ACE1 EA15 ORAL (16:37)
[2018-04-07] MEDS ORDERED: SIMETHICONE80 MG ORAL (16:59)
[2018-04-07] MEDS ORDERED: PROCRIT40000 UNIT SUBQ (16:59)
[2018-04-07 17:04] VITALS: BP 109/75
--- NOTE | 2018-04-07 17:37 | Diagnostic Imaging Report ---
Indication: Shortness of breath Technique: One view of the chest Comparison: 01/04/2018 Findings: The heart is enlarged. There is decreased retrocardiac opacity as compared to prior study. There may be some infiltrate in the retrocardiac region, however. The pleural spaces are grossly clear. No definite interstitial congestion, previously demonstrated interstitial congestion has resolved Impression: Cardiomegaly Equivocal retrocardiac consolidation, infiltrate not completely excludable No acute process otherwise
[2018-04-07 18:25] VITALS: BP 110/75
--- NOTE | 2018-04-07 19:27 | History and Physical ---
History of Present Illness General Date patient seen: Apr 07, 2018 Time patient seen: 19:18 Reason for Hospitalization: Syncope Present Illness HPI 82 yo male with h/o CHF, cirrhosis, b/l DVT presented from [facility] due to syncope. Patient was noted to be non responsive for around 3 minutes at SNF. Patient states he thinks he collapsed. Patient Denies any cp, but admits to mild sob, no coughs. Denies any fevers/chills/nausea/vomiting/abd pain/diarrhea/constipation social hx reviewed: denies current smoking, alcohol or drug use. past fam hx reviewed: denies any sig past fam hx that he is aware of code status reviewed: FULL Allergies: Coded Allergies: No Known Allergies (Unverified , 08/30/17) Medication History Scheduled Allopurinol* (Allopurinol*), 300 MG ORAL DAILY, (Reported) Carvedilol (Coreg), 3.125 MG ORAL EVERY 12 HOURS, (Reported) Epoetin [place] (Procrit), 40,000 UNIT SUBQ ONCE A WEEK, (Reported) Ferrous Sulfate (Iron), 325 MG PO TID, (Reported) Furosemide* (Lasix*), 80 MG ORAL DAILY, (Reported) Hydralazine HCl (Hydralazine HCl), 25 MG PO Q8HR, (Reported) Isosorbide Mononitrate (Isosorbide Mononitrate Er), 30 MG ORAL DAILY Isosorbide Mononitrate (Isosorbide Mononitrate), 30 MG PO DAILY, (Reported) Metolazone (Metolazone), 2.5 MG ORAL DAILY Metoprolol Tartrate* (Metoprolol Tartrate*), 25 MG ORAL DAILY, (Reported) Multivitamins* (Multivitamins*), 1 TAB ORAL DAILY Pantoprazole (Pantoprazole), 20 MG ORAL Q12HR, (Reported) Polyethylene Glycol 3350* (Polyethylene Glycol 3350*), 17 GM ORAL DAILY, ( Reported) Rivaroxaban (Xarelto), 20 MG ORAL DAILY Sevelamer Carbonate (Renvela), 800 MG ORAL THREE TIMES A DAY, (Reported) Sevelamer Carbonate (Renvela), 800 MG ORAL THREE TIMES A DAY Thiamine Hcl (Vitamin B1*), 100 MG ORAL DAILY Scheduled PRN Bisacodyl (Bisacodyl), 10 MG RC for Constipation, (Reported) Epoetin Pedro Pablo (Procrit), 20,000 UNIT SUBQ for Per rx protocol, (Reported) Hydrocodone/Acetaminophen 5-325* (Hydrocodone/Acetaminophen 5-325*), 1 TAB ORAL Q8H PRN for For Pain, (Reported) Simethicone* (Simethicone*), 80 MG ORAL Q8H PRN for GAS PAIN, (Reported) Temazepam* (Restoril*), 15 MG ORAL HSPRN PRN Patient History Healthcare decision maker N Resuscitation status Advanced Directive on File Review of Systems All Other Systems: negative except mentioned in HPI ROS Narrative 14 point ros reviewed and negative except per above Physical Exam General Appearance: no apparent distress, alert Lines, tubes and drains: peripheral HEENT: normocephalic, mucous membranes moist, PERRL Neck: non-tender, normal alignment, supple, normal inspection Respiratory/Chest: chest wall non-tender, lungs clear, normal breath sounds, no respiratory distress, no accessory muscle use Cardiovascular/Chest: normal peripheral pulses, normal rate, regular rhythm Abdomen: normal bowel sounds, non tender, soft, abnormal bowel sounds Extremities: normal range of motion, non-tender, normal inspection Skin Exam: normal pigmentation, warm/dry Neurologic: global account manager II-XII grossly normal, no motor/sensory deficits, alert, oriented x 3, responsive, normal mood/affect Last 24 Hour Vital Signs Date Time Temp Pulse Resp B/P (MAP) Pulse Ox O2 Delivery O2 Flow Rate FiO2 04/07/18 18:25 97.5 85 20 110/75 (87) 98 85 04/07/18 17:04 97.5 85 20 109/75 100 Nasal Cannula 2.0 04/07/18 15:44 97.5 83 17 110/64 100 Nasal Cannula 2.0 04/07/18 14:32 97.5 84 18 108/69 100 Nasal Cannula 2.0 04/07/18 13:27 97.5 81 18 108/58 95 Nasal Cannula 2.0 Laboratory Tests Test 04/07/18 14:00 White Blood Count 4.0 K/UL (4.8-10.8) L Red Blood Count 3.60 M/UL (4.70-6.10) L Hemoglobin 9.6 G/DL (14.2-18.0) L Hematocrit 33.1 % (42.0-52.0) L Mean Corpuscular Volume 92 FL (80-99) Mean Corpuscular Hemoglobin 26.7 PG (27.0-31.0) L Mean Corpuscular Hemoglobin Concent 29.1 G/DL (32.0-36.0) L Red Cell Distribution Width 19.6 % (11.6-14.8) H Platelet Count 157 K/UL (150-450) Mean Platelet Volume 9.8 FL (6.5-10.1) Neutrophils (%) (Auto) 60.5 % (45.0-75.0) Lymphocytes (%) (Auto) 23.3 % (20.0-45.0) Monocytes (%) (Auto) 10.4 % (1.0-10.0) H Eosinophils (%) (Auto) 3.8 % (0.0-3.0) H Basophils (%) (Auto) 1.9 % (0.0-2.0) Urine Color Yellow Urine Appearance Slightly cloudy Urine pH 5 (4.5-8.0) Urine Specific [place] 1.020 (1.005-1.035) Urine Protein 3+ (NEGATIVE) H Urine Glucose (UA) Negative (NEGATIVE) Urine Ketones Negative (NEGATIVE) Urine Blood 4+ (NEGATIVE) H Urine Nitrite Negative (NEGATIVE) Urine Bilirubin Negative (NEGATIVE) Urine Urobilinogen Normal MG/DL (0.0-1.0) Urine Leukocyte Esterase 3+ (NEGATIVE) H Urine RBC 10-15 /HPF (0 - 0) H Urine WBC 40-60 /HPF (0 - 0) H Urine Squamous Epithelial Cells Few /LPF (NONE/OCC) Urine Bacteria Few /HPF (NONE) Sodium Level 140 MMOL/L (136-145) Potassium Level 3.6 MMOL/L (3.5-5.1) Chloride Level 104 MMOL/L (98-107) Carbon Dioxide Level 24 MMOL/L (21-32) Anion Gap 12 mmol/L (5-15) Blood Urea Nitrogen 44 mg/dL (7-18) H Creatinine 2.4 MG/DL (0.55-1.30) H Estimat Glomerular Filtration Rate mL/min (>60) Glucose Level 87 MG/DL (74-106) Calcium Level 8.7 MG/DL (8.5-10.1) Total Bilirubin 0.9 MG/DL (0.2-1.0) Aspartate Amino Transf (AST/SGOT) 24 U/L (15-37) Alanine Aminotransferase (ALT/SGPT) 11 U/L (12-78) L Alkaline Phosphatase 59 U/L (46-116) Total Creatine Kinase 115 U/L (26-308) Creatine Kinase MB 2.4 NG/ML (0.0-3.6) Creatine Kinase MB Relative Index 2.0 Troponin I 0.059 ng/mL (0.000-0.056) Pro-B-Type Natriuretic Peptide 75746 pg/mL (0-125) H Total Protein 7.6 G/DL (6.4-8.2) Albumin 3.2 G/DL (3.4-5.0) L Globulin 4.4 g/dL Albumin/Globulin Ratio 0.7 (1.0-2.7) L Lipase 176 U/L (73-393) Height (Feet): 5 Height (Inches): 7.00 Weight (Pounds): 175 Medications Current Medications Medications (Trade) Dose Ordered Sig/Saul Route PRN Reason Start Time Stop Time Status Last Admin Dose Admin Allopurinol (Allopurinol) 300 mg DAILY ORAL 04/08/18 09:00 05/08/18 08:59 Carvedilol (Coreg) 3.125 mg EVERY 12 HOURS ORAL 04/07/18 21:00 05/07/18 20:59 Ferrous Sulfate (Feosol) 325 mg TID ORAL 04/07/18 18:00 05/07/18 17:59 04/07/18 18:46 Furosemide (Lasix) 80 mg DAILY ORAL 04/08/18 09:00 05/08/18 08:59 Metolazone (Zaroxolyn) 2.5 mg DAILY ORAL 04/08/18 09:00 05/08/18 08:59 Multivitamins (Multivitamins) 1 tab DAILY ORAL 04/08/18 09:00 05/08/18 08:59 Rivaroxaban (Xarelto) 20 mg DAILY ORAL 04/07/18 17:45 05/07/18 17:44 UNV Sevelamer Carbonate (Renvela) 800 mg THREE TIMES A DAY ORAL 04/07/18 18:00 05/07/18 17:59 04/07/18 18:46 Thiamine HCl (Vitamin B1) 100 mg DAILY ORAL 04/08/18 09:00 05/08/18 08:59 Assessment/Plan Status: stable Assessment/Plan acute hypoxic respiratory failure acute on chronic systolic CHF exacerbation - EF 10%, TTE done on admit - cxr reviewed with b/l pleural effusions and pulm vasc destinee and cardiomegaly. - placed on 2L NCL supplemental o2 to saturate above 90% - pulse ox - resume home meds - BNP >5000 - aggressive diuresis IV lasix - tele - strict i/o Decompensated Cirrhosis hx alcohol abuse - resume home meds - stable - thiamine - check ammonia levels Syncope - likely due to above chf exacerbation/resp failure with hypoxia/cirrhosis - check ammonia level - q6hr neuro checks RAMONE - Cr 2.4 - likely due to cirrhosis and CHF exacerbation b/l LE DVT - resume xarelto ppx: scd, xarelto code status: FULL diet: cardiac Code Status: Full Hospital Classification Declaration: Based on this initial evaluation, and depending on the patient's clinical course, I anticipate that this patient will require hospitalization for 2-3 days for acute hypoxic resp failure/chf exacerbation/syncope and close respiratory/hemodynamic monitoring. Disposition: Once the patient is stable to leave the hospital, I anticipate the patient will likely be discharged to the following environment: SNF I spent 72 minutes on this patient's case, and 41 minutes were dedicated to counseling and/or care coordination. Discussed with patient/family, nursing staff, SW/CM regarding clinical status, treatment course, and disposition planning. Time of note may not reflect time of encounter. ------ Date of Discussion: 04/07/18 A [id number] discussion with the patient regarding the patient's advanced care planning took place during this hospitalization on the above date. The discussion included the explanation and discussion of advance directives and associated forms/documents, as well as the patient's current code status. We also discussed at length the patient's medical conditions (both acute and chronic), general prognosis, treatment options, and goals of care. The following summarizes the discussion: Advance Care Planning/Goals of Care: - Will attempt to fill out an AD and/or POLST with the patient prior to discharge, if not already completed - Continue current evaluation and management of any acute and chronic medical issues - Will continue to support the patient/family - Will continue to discuss both short- and long-term goals of care DPOA-HC/Surrogate Decision Maker: None currently appointed Code Status: Full Code AD Forms/Documents Completed: Deferred A total of 31 minutes was spent on this discussion, including counseling, answering questions, and completing, if any, pertinent advanced care planning forms/documents. Jaspal Lucas MD Apr 07, 2018 19:27
[2018-04-07] MEDS: Simethicone 80mg tab ORAL PRN (20:48)
[2018-04-07] MEDS: Xarelto 15mg tab ORAL SCH (20:48)
[2018-04-08] VITALS: BP 107/68
[2018-04-08] MEDS: Simethicone 80mg tab ORAL PRN ×2 (02:55→09:46)
[2018-04-08 04:00] VITALS: BP 115/81
--- NOTE | 2018-04-08 07:56 | General Progress Note ---
Assessment/Plan Status: stable, progressing Assessment/Plan acute hypoxic respiratory failure acute on chronic systolic CHF exacerbation - EF 10%, TTE done on admit - cxr reviewed with b/l pleural effusions and pulm vasc destinee and cardiomegaly. - placed on 2L NCL supplemental o2 to saturate above 90%.. wean off today - pulse ox - resume home meds - BNP >5000 - aggressive diuresis IV lasix - tele - strict i/o - likely dc tomorrow if continues to improve Decompensated Cirrhosis hx alcohol abuse - resume home meds - stable - thiamine - ammonia wnl Acute Encephalopathy due to hypoxia Syncope - likely due to above chf exacerbation/resp failure with hypoxia/cirrhosis - check ammonia level - q6hr neuro checks RAMONE - Cr 2.4 - likely due to cirrhosis and CHF exacerbation - pending AM labs b/l LE DVT - resume xarelto ppx: scd, xarelto code status: FULL diet: cardiac Code Status: Full Hospital Classification Declaration: Based on this initial evaluation, and depending on the patient's clinical course, I anticipate that this patient will require hospitalization for 2-3 days for acute hypoxic resp failure/chf exacerbation/syncope and close respiratory/hemodynamic monitoring. Disposition: Once the patient is stable to leave the hospital, I anticipate the patient will likely be discharged to the following environment: SNF I spent 55 minutes on this patient's case, and 41 minutes were dedicated to counseling and/or care coordination. Discussed with patient/family, nursing staff, SW/CM regarding clinical status, treatment course, and disposition planning. Time of note may not reflect time of encounter. ------ Date of Discussion: 04/07/18 A [id number] discussion with the patient regarding the patient's advanced care planning took place during this hospitalization on the above date. The discussion included the explanation and discussion of advance directives and associated forms/documents, as well as the patient's current code status. We also discussed at length the patient's medical conditions (both acute and chronic), general prognosis, treatment options, and goals of care. The following summarizes the discussion: Advance Care Planning/Goals of Care: - Will attempt to fill out an AD and/or POLST with the patient prior to discharge, if not already completed - Continue current evaluation and management of any acute and chronic medical issues - Will continue to support the patient/family - Will continue to discuss both short- and long-term goals of care DPOA-HC/Surrogate Decision Maker: None currently appointed Code Status: Full Code AD Forms/Documents Completed: Deferred A total of 31 minutes was spent on this discussion, including counseling, answering questions, and completing, if any, pertinent advanced care planning forms/documents. Subjective Date patient seen: Apr 08, 2018 Time patient seen: 07:53 Allergies: Coded Allergies: No Known Allergies (Unverified , 08/30/17) Subjective f.u acute hypoxic resp failure, chf exacerbation, sob, cirrhosis - still feels a bit weak and a bit sob on exertion - denies any chest pain, no n/v/fevers/chills ROS: 14 point ROS reviewed and negative except for the above Objective Last 24 Hour Vital Signs Date Time Temp Pulse Resp B/P (MAP) Pulse Ox O2 Delivery O2 Flow Rate FiO2 04/08/18 04:00 97.3 92 18 115/81 (92) 96 92 04/08/18 04:00 95 04/08/18 00:00 97.2 100 18 107/68 (81) 96 100 04/08/18 00:00 100 04/07/18 20:48 85 109/78 04/07/18 20:05 Room Air 2.0 04/07/18 20:00 86 04/07/18 18:25 97.5 85 20 110/75 (87) 98 85 04/07/18 17:04 97.5 85 20 109/75 100 Nasal Cannula 2.0 04/07/18 15:44 97.5 83 17 110/64 100 Nasal Cannula 2.0 04/07/18 14:32 97.5 84 18 108/69 100 Nasal Cannula 2.0 04/07/18 13:27 97.5 81 18 108/58 95 Nasal Cannula 2.0 Intake and Output 04/07/18 04/08/18 19:00 07:00 Intake Total 240 ml Output Total 320 ml Balance -80 ml Intake Oral 240 ml Output Urine Total 320 ml Stool Total 0 ml # Voids 1 2 # Bowel Movements 1 Laboratory Tests 04/07/18 14:00: White Blood Count 4.0L, Red Blood Count 3.60L, Hemoglobin 9.6L, Hematocrit 33.1L , Mean Corpuscular Volume 92, Mean Corpuscular Hemoglobin 26.7L, Mean Corpuscular Hemoglobin Concent 29.1L, Red Cell Distribution Width 19.6H, Platelet Count 157, Mean Platelet Volume 9.8, Neutrophils (%) (Auto) 60.5, Lymphocytes (%) (Auto) 23.3, Monocytes (%) (Auto) 10.4H, Eosinophils (%) (Auto) 3.8H, Basophils (%) (Auto) 1.9, Urine Color Yellow, Urine Appearance Slightly cloudy, Urine pH 5, Urine Specific [place] 1.020, Urine Protein 3+H, Urine Glucose (UA) Negative, Urine Ketones Negative, Urine Blood 4+H, Urine Nitrite Negative, Urine Bilirubin Negative, Urine Urobilinogen Normal, Urine Leukocyte Esterase 3+H, Urine RBC 10-15H, Urine WBC 40-60H, Urine Squamous Epithelial Cells Few, Urine Bacteria Few, Sodium Level 140, Potassium Level 3.6, Chloride Level 104, Carbon Dioxide Level 24, Anion Gap 12, Blood Urea Nitrogen 44H, Creatinine 2.4H, Estimat Glomerular Filtration Rate , Glucose Level 87, Calcium Level 8.7, Total Bilirubin 0.9, Aspartate Amino Transf (AST/SGOT) 24, Alanine Aminotransferase (ALT/SGPT) 11L, Alkaline Phosphatase 59, Total Creatine Kinase 115, Creatine Kinase MB 2.4, Creatine Kinase MB Relative Index 2.0, Troponin I 0.059H, Pro-B-Type Natriuretic Peptide 72128F, Total Protein 7.6, Albumin 3.2L, Globulin 4.4, Albumin/Globulin Ratio 0.7L, Lipase 176 04/07/18 21:08: Ammonia 25 Height (Feet): 5 Height (Inches): 7.00 Weight (Pounds): 168 Objective General Appearance: no apparent distress, alert Lines, tubes and drains: peripheral HEENT: normocephalic, mucous membranes moist, PERRL Neck: non-tender, normal alignment, supple, normal inspection Respiratory/Chest: chest wall non-tender, lungs clear, normal breath sounds, no respiratory distress, no accessory muscle use Cardiovascular/Chest: normal peripheral pulses, normal rate, regular rhythm Abdomen: normal bowel sounds, non tender, soft, abnormal bowel sounds Extremities: normal range of motion, non-tender, normal inspection Skin Exam: normal pigmentation, warm/dry Neurologic: card sorter II-XII grossly normal, no motor/sensory deficits, alert, oriented x 3, responsive, normal mood/affect Jaspal Lucas MD Apr 08, 2018 07:56
[2018-04-08 08:04] LABS: BASOPHILS % (AUTO) 2.5 % (0.0-2.0); EOSINOPHILS % (AUTO) 1.2 % (0.0-3.0); HEMATOCRIT 32.3 % (42.0-52.0); HEMOGLOBIN 9.7 G/DL (14.2-18.0); LYMPHOCYTES % (AUTO) 20.5 % (20.0-45.0); MEAN CORPUSCULAR VOLUME 90 FL (80-99); MONOCYTES % (AUTO) 9.8 % (1.0-10.0); NEUTROPHILS % (AUTO) 66.1 % (45.0-75.0); PLATELET COUNT 161 K/UL (150-450); RED BLOOD COUNT 3.59 M/UL (4.70-6.10); RED CELL DISTRIBUTION WIDTH 19.5 % (11.6-14.8); WHITE BLOOD COUNT 3.6 K/UL (4.8-10.8)
[2018-04-08 08:28] LABS: ANION GAP 15 mmol/L (5-15); BLOOD UREA NITROGEN 49 mg/dL (7-18); CALCIUM 8.9 MG/DL (8.5-10.1); CARBON DIOXIDE 20 MMOL/L (21-32); CHLORIDE 104 MMOL/L (98-107); CREATININE 2.5 MG/DL (0.55-1.30); POTASSIUM 4.1 MMOL/L (3.5-5.1); SODIUM 139 MMOL/L (136-145)
[2018-04-08] MEDS ORDERED: Furosemide 80mg tab ORAL SCH (09:00)
[2018-04-08] MEDS: Thiamine 100mg tab ORAL SCH (09:45)
[2018-04-08] MEDS: metOLazone 2.5 MG TAB ORAL SCH (09:45)
[2018-04-08 12:00] VITALS: BP 98/68
--- NOTE | 2018-04-08 14:28 | Diagnostic Imaging Report ---
Indication: Headache Technique: Contiguous 5 mm thick transaxial imaging of the head obtained in a Siemens Sensation [address] scanner. Soft tissue and bone windows generated. Automatic Exposure Control was utilized. Total Dose length Product (DLP): 1319.[address] Dose Index Volume (CTDIvol): 70.38 mGy Comparison: none Findings: There is moderate prominence of the ventricles, basal cisterns, and cerebral sulci consistent with atrophy. Moderate, nonspecific, white matter hypoattenuation is noted throughout the brain consistent with chronic small vessel disease. There is no midline shift, edema, acute hemorrhage, mass effect, or abnormal extra-axial fluid collections. Bones and extra osseous soft tissues are unremarkable. Impression: No acute intracranial bleed, mass effect or edema. Moderate atrophy of the brain. Evidence of chronic small vessel disease involving white matter tracts. The CT scanner at [facility] is accredited by the [employer] and the scans are performed using dose optimization techniques as appropriate to a performed exam including Automatic Exposure control.
[2018-04-08] MEDS: Norco 5mg/325mg tab ORAL PRN ×2 (15:26→21:54)
[2018-04-08 16:00] VITALS: BP 143/62
[2018-04-08 20:00] VITALS: BP 118/63
[2018-04-08] MEDS: Xarelto 15mg tab ORAL SCH (21:03)
[2018-04-09] VITALS: BP 103/64
[2018-04-09 04:00] VITALS: BP 109/70
[2018-04-09] MEDS: Norco 5mg/325mg tab ORAL PRN (04:20)
[2018-04-09 08:00] VITALS: BP 115/79
[2018-04-09] MEDS: metOLazone 2.5 MG TAB ORAL SCH (10:13)
[2018-04-09] MEDS: Thiamine 100mg tab ORAL SCH (10:13)
[2018-04-09 12:00] VITALS: BP 125/75
[2018-04-09] MEDS ORDERED: Norco 5mg/325mg tab ORAL SCH (12:45)
--- NOTE | 2018-04-09 12:53 | Discharge Summary ---
Discharge Summary Hospital Course Date of Admission Apr 07, 2018 at 14:45 Date of Discharge 04/09/18 Admitting Diagnosis SYNCOPE HPI Jose Garcia is a 82 year old male who was admitted on Apr 07, 2018 at 14:45 for Syncope 82 yo male with h/o CHF, cirrhosis, b/l DVT presented from [facility] due to syncope. Patient was noted to be non responsive for around 3 minutes at SNF. Patient states he thinks he collapsed. Patient Denies any cp, but admits to mild sob, no coughs. EF 10%, TTE done on admit. cxr reviewed with b/l pleural effusions and pulm vasc destinee and cardiomegaly. patient was placed on 2L NCL supplemental o2 to saturate above 90%.. weaned off o2 and has done well since. patient continued to improved, has remained stable. No acute events overnight patient stable for dc back with resumption of home meds Physical Exam: General Appearance: no apparent distress, alert Lines, tubes and drains: peripheral HEENT: normocephalic, mucous membranes moist, PERRL Neck: non-tender, normal alignment, supple, normal inspection Respiratory/Chest: chest wall non-tender, lungs clear, normal breath sounds, no respiratory distress, no accessory muscle use Cardiovascular/Chest: normal peripheral pulses, normal rate, regular rhythm Abdomen: normal bowel sounds, non tender, soft, abnormal bowel sounds Extremities: normal range of motion, non-tender, normal inspection Skin Exam: normal pigmentation, warm/dry Neurologic: 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 - placed on 2L NCL supplemental o2 to saturate above 90%.. wean off today - pulse ox - resume home meds - BNP >5000 - lasix - tele - strict i/o - dc today Decompensated Cirrhosis hx alcohol abuse - resume home meds - stable - thiamine - ammonia wnl Acute Encephalopathy due to hypoxia Syncope - likely due to above chf exacerbation/resp failure with hypoxia/cirrhosis - resolved RAMONE - Cr 2.4 - likely due to cirrhosis and CHF exacerbation - pending AM labs b/l LE DVT - resume xarelto ppx: scd, xarelto code status: FULL diet: cardiac Disposition: Once the patient is stable to leave the hospital, I anticipate the patient will likely be discharged to the following environment: SNF I spent over 40 minutes on this patient's case, counseling and/or care coordination, discharged/dispo planning. Discussed with patient/family, nursing staff, SW/CM regarding clinical status, treatment course, and disposition planning. Time of note may not reflect time of encounter. ------ Date of Discussion: 04/07/18 A [id number] discussion with the patient regarding the patient's advanced care planning took place during this hospitalization on the above date. The discussion included the explanation and discussion of advance directives and associated forms/documents, as well as the patient's current code status. We also discussed at length the patient's medical conditions (both acute and chronic), general prognosis, treatment options, and goals of care. The following summarizes the discussion: Advance Care Planning/Goals of Care: - Will attempt to fill out an AD and/or POLST with the patient prior to discharge, if not already completed - Continue current evaluation and management of any acute and chronic medical issues - Will continue to support the patient/family - Will continue to discuss both short- and long-term goals of care DPOA-HC/Surrogate Decision Maker: None currently appointed Code Status: Full Code AD Forms/Documents Completed: Deferred A total of 31 minutes was spent on this discussion, including counseling, answering questions, and completing, if any, pertinent advanced care planning forms/documents. Discharge Medications Continued Medications: Allopurinol* (Allopurinol*) 300 Mg Tablet 300 MG ORAL DAILY, TAB (This prescription has been renewed) Bisacodyl (Bisacodyl) 10 Mg Supp.rect 10 MG RC PRN for Constipation, SUPP Carvedilol (Coreg) 3.125 Mg Tablet 3.125 MG ORAL EVERY 12 HOURS, TAB (This prescription has been renewed) Epoetin [place] (Procrit) 20,000 Unit/1 Ml Vial 84559 UNIT SUBQ PRN for Per rx protocol, VIAL (This prescription has been renewed) Epoetin [place] (Procrit) 40,000 Unit/1 Ml Vial 01172 UNIT SUBQ ONCE A WEEK, VIAL (This prescription has been renewed) Ferrous Sulfate (Iron) 325 Mg Tablet 325 MG PO TID, TAB (This prescription has been renewed) Furosemide* (Lasix*) 80 Mg Tablet 80 MG ORAL DAILY, TAB Hydralazine HCl (Hydralazine HCl) 25 Mg Tablet 25 MG PO Q8HR, TAB (This prescription has been renewed) Hydrocodone/Acetaminophen 5-325* (Hydrocodone/Acetaminophen 5-325*) 1 Each Tablet 1 TAB ORAL Q8H PRN for For Pain, #30 TAB 0 Refills (This prescription has been renewed) Isosorbide Mononitrate (Isosorbide Mononitrate Er) 30 Mg Tab.er.24h 30 MG ORAL DAILY, #30 TAB Isosorbide Mononitrate (Isosorbide Mononitrate) 20 Mg Tablet 30 MG PO DAILY, TAB (This prescription has been renewed) Metolazone (Metolazone) 2.5 Mg Tablet 2.5 MG ORAL DAILY for 30 Days, TAB Metoprolol Tartrate* (Metoprolol Tartrate*) 25 Mg Tablet 25 MG ORAL DAILY, TAB (This prescription has been renewed) Multivitamins* (Multivitamins*) 1 Each Tablet 1 TAB ORAL DAILY for 30 Days, #30 TAB Pantoprazole (Pantoprazole) 20 Mg Tablet.dr 20 MG ORAL Q12HR, #10 TAB 0 Refills Polyethylene Glycol 3350* (Polyethylene Glycol 3350*) 17 Gm Powd.pack 17 GM ORAL DAILY for constipation, PACKET (This prescription has been renewed) Rivaroxaban (Xarelto) 15 Mg Tablet 20 MG ORAL DAILY for 60 Days, TAB Sevelamer Carbonate (Renvela) 800 Mg Tablet 800 MG ORAL THREE TIMES A DAY, TAB (This prescription has been renewed) Sevelamer Carbonate (Renvela) 800 Mg Tablet 800 MG ORAL THREE TIMES A DAY for 10 Days, TAB Simethicone* (Simethicone*) 80 Mg Tab.chew 80 MG ORAL Q8H PRN for GAS PAIN, #20 TAB 0 Refills (This prescription has been renewed) Thiamine Hcl (Vitamin B1*) 100 Mg Tablet 100 MG ORAL DAILY for 30 Days, #30 TAB Discharge Condition Upon Discharge: stable Discharge Disposition Patient was discharged to SNF Discharge Diagnoses: (1) Hypoxic encephalopathy (2) Acute exacerbation of CHF (congestive heart failure) (3) Hepatorenal syndrome (4) Acute on chronic renal failure Jaspal Lucas MD Apr 09, 2018 12:53
--- NOTE | 2018-04-09 13:04 | Consultation ---
History of Present Illness General Date patient seen: Apr 09, 2018 Chief Complaint: Syncope Present Illness Allergies: Coded Allergies: No Known Allergies (Unverified , 08/30/17) Medication History Scheduled Allopurinol* (Allopurinol*), 300 MG ORAL DAILY, (Reported) Carvedilol (Coreg), 3.125 MG ORAL EVERY 12 HOURS, (Reported) Epoetin [place] (Procrit), 40,000 UNIT SUBQ ONCE A WEEK, (Reported) Ferrous Sulfate (Iron), 325 MG PO TID, (Reported) Furosemide* (Lasix*), 80 MG ORAL DAILY, (Reported) Hydralazine HCl (Hydralazine HCl), 25 MG PO Q8HR, (Reported) Isosorbide Mononitrate (Isosorbide Mononitrate Er), 30 MG ORAL DAILY Isosorbide Mononitrate (Isosorbide Mononitrate), 30 MG PO DAILY, (Reported) Metolazone (Metolazone), 2.5 MG ORAL DAILY Metoprolol Tartrate* (Metoprolol Tartrate*), 25 MG ORAL DAILY, (Reported) Multivitamins* (Multivitamins*), 1 TAB ORAL DAILY Pantoprazole (Pantoprazole), 20 MG ORAL Q12HR, (Reported) Polyethylene Glycol 3350* (Polyethylene Glycol 3350*), 17 GM ORAL DAILY, ( Reported) Rivaroxaban (Xarelto), 20 MG ORAL DAILY Sevelamer Carbonate (Renvela), 800 MG ORAL THREE TIMES A DAY, (Reported) Sevelamer Carbonate (Renvela), 800 MG ORAL THREE TIMES A DAY Thiamine Hcl (Vitamin B1*), 100 MG ORAL DAILY Scheduled PRN Bisacodyl (Bisacodyl), 10 MG RC for Constipation, (Reported) Epoetin [place] (Procrit), 20,000 UNIT SUBQ for Per rx protocol, (Reported) Hydrocodone/Acetaminophen 5-325* (Hydrocodone/Acetaminophen 5-325*), 1 TAB ORAL Q8H PRN for For Pain, (Reported) Simethicone* (Simethicone*), 80 MG ORAL Q8H PRN for GAS PAIN, (Reported) Temazepam* (Restoril*), 15 MG ORAL HSPRN PRN Patient History Healthcare decision maker N Resuscitation status Full Code Advanced Directive on File Physical Exam Last 24 Hour Vital Signs Date Time Temp Pulse Resp B/P (MAP) Pulse Ox O2 Delivery O2 Flow Rate FiO2 04/09/18 10:13 90 115/79 04/09/18 09:00 Nasal Cannula 2.0 04/09/18 08:00 97.2 90 20 115/79 (91) 96 04/09/18 04:00 98.3 84 22 109/70 (83) 100 92 04/09/18 04:00 84 04/09/18 00:00 98.0 86 20 103/64 (77) 97 103 04/09/18 00:00 86 04/08/18 21:03 99 118/63 04/08/18 21:00 Nasal Cannula 2.0 04/08/18 20:00 105 04/08/18 20:00 97.1 99 22 118/63 (81) 100 100 04/08/18 16:00 97.3 101 16 143/62 (89) 100 100 04/08/18 16:00 103 04/08/18 15:56 98.0 Intake and Output 04/08/18 04/09/18 19:00 07:00 Intake Total 480 ml 120 ml Output Total 200 ml 300 ml Balance 280 ml -180 ml Intake Oral 480 ml 120 ml Output Urine Total 200 ml 300 ml # Voids 1 2 # Bowel Movements 1 Laboratory Tests Test 04/08/18 13:30 04/08/18 19:00 04/09/18 01:05 Troponin I 0.144 ng/mL (0.000-0.056) 0.157 ng/mL (0.000-0.056) 0.184 ng/mL (0.000-0.056) Height (Feet): 5 Height (Inches): 7.00 Weight (Pounds): 168 Medications Current Medications Medications (Trade) Dose Ordered Sig/Saul Route PRN Reason Start Time Stop Time Status Last Admin Dose Admin Acetaminophen/ Hydrocodone Bitart ([place] 5/325) 1 tab ONCE ORAL 04/09/18 12:45 04/09/18 13:45 Acetaminophen/ Hydrocodone Bitart ([place] 5/325) 1 tab Q6H PRN ORAL For Pain 04/08/18 15:15 04/15/18 15:14 04/09/18 04:20 Allopurinol (Allopurinol) 300 mg DAILY ORAL 04/08/18 09:00 05/08/18 08:59 04/09/18 10:13 Carvedilol (Coreg) 3.125 mg EVERY 12 HOURS ORAL 04/07/18 21:00 05/07/18 20:59 04/09/18 10:13 Ferrous Sulfate (Feosol) 325 mg TID ORAL 04/07/18 18:00 05/07/18 17:59 04/09/18 10:13 Furosemide (Lasix) 80 mg EVERY 12 HOURS IV 04/08/18 09:00 05/08/18 08:59 04/08/18 21:03 Metolazone (Zaroxolyn) 2.5 mg DAILY ORAL 04/08/18 09:00 05/08/18 08:59 04/09/18 10:13 Multivitamins (Multivitamins) 1 tab DAILY ORAL 04/08/18 09:00 05/08/18 08:59 04/09/18 10:13 Rivaroxaban (Xarelto) 15 mg Q24H ORAL 04/07/18 20:00 05/07/18 19:59 04/08/18 21:03 Sevelamer Carbonate (Renvela) 800 mg THREE TIMES A DAY ORAL 04/07/18 18:00 05/07/18 17:59 04/09/18 10:14 Simethicone (Mylicon) 80 mg QIDPRN PRN ORAL Abdominal cramps/gas pain 04/07/18 20:00 05/07/18 19:59 04/08/18 09:46 Thiamine HCl (Vitamin B1) 100 mg DAILY ORAL 04/08/18 09:00 05/08/18 08:59 04/09/18 10:13 Assessment/Plan Assessment/Plan DATE OF CONSULTATION: 04/09/18 HEMATOLOGY/ONCOLOGY CONSULTATION CONSULTING PHYSICIAN: Christiano Hoffmann M.D. REQUESTING PHYSICIAN: Vinnie Acosta M.D. REASON FOR CONSULTATION: Evaluation of severe leukopenia and anemia. IDENTIFYING DATA: Dear Dr. Cabrera PATIENT SEEN ON LAST SEVERAL ADMISSION 82-year-old male with past medical history significant for cirrhosis, CKD, and AFib, chf at this time presents to [facility] with decreased mental status x 3days, The patient is a poor historian and difficult to obtain any further history from the patient. He has been noted to have bilateral lower extremity edema past several days, WBC noted to be decreased. In the past admitted with cirrhosis and pancytopenia and currently on xarelto Hematology Service was consulted for further evaluation and treatment. The patient recently admitted to [facility] for similar symptoms in the past as well. here for paracentesis as well as arm dvt. PAST MEDICAL HISTORY: Cirrhosis. PAST SURGICAL HISTORY: None noted. ALLERGIES: No known drug allergies. REVIEW OF SYSTEMS: CONSTITUTIONAL: No fevers, chills, or night sweats. SKIN: No rashes, bums, or itching. HEENT: No headache, hearing or visual changes. BREASTS: No lumps, pain, or discharge. PULMONARY: No cough, sputum, or shortness of breath. GASTROINTESTINAL: No nausea, vomiting, or diarrhea. GENITOURINARY: No dysuria, freqency, or urgency. MUSCULOSKELETAL: No joint swelling, muscle pain, or trauma. PHYSICAL EXAMINATION: VITAL SIGNS: Reviewed. GENERAL: No acute distress. LUNGS: Decreased breath sounds. Minor crackles CARDIOVASCULAR: Regular rate. No S3 or S4. ABDOMEN: Soft, nontender, and nondistended. EXTREMITIES: A 1+ edema. right arm swollen>L arm Laboratory Tests Test 04/08/18 13:30 04/08/18 19:00 04/09/18 01:05 Troponin I 0.144 ng/mL (0.000-0.056) 0.157 ng/mL (0.000-0.056) 0.184 ng/mL (0.000-0.056) Assessment/Plan: #. Right arm dvt along with bilateral dvt of the lower extremity DVT with progression on xarelto --> has completed 3 mo of anticogaultion, xarelto --> v/q neg #. 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 Hepatitis and human immunodeficiency virus are negative. --> Counts in line with historical values over time, continues to persist --> Ultrasound of the abdomen from last admission showed cirrhosis/HSM --> Tumor markers reviewed and are negative from before. --> Likely leukopenia secondary to splenomegaly. Give neupogen if ANC <1000 --> s/p paracentesis, 11/22: S/P paracentesis, yielding 5.9L of fluid. cytology though in prior was negative #. Anemia due to underlying chronic disease, appears to be stable. --> anemia w/u if hgb worsens, consider transfusion prn --> Current Hgb of 8.6, stable. #. Coagulopathy, likely related to underlying cirrhosis of the liver. --> VitK prn basis, given by GI #. Hyperkalemia, given Kayexalate, currently has improved. #. Biventricular failure with severe pulmonary hypertension. The patient has seen by Cardiology. #. Ascites --> S/P paracentesis, yielding 5.9 liters of fluid, 11/26 --> may need to repeat The time the note was entered does not necessarily correspond to the time the patient was seen. Christiano Hoffmann MD Apr 09, 2018 13:04
[2018-04-09 16:00] VITALS: BP 116/77
== END 2018-04-09 18:25 | DRG 194 ==
LOC: EDBD 13:32 → EMR 14:02 → 2E 14:45 → EDBEDREQ 17:09 → 2E 04-09 07:04
DX: I50.23 Acute on chronic systolic (congestive) heart failure (principal); J96.01 Acute respiratory failure with hypoxia; K76.7 Hepatorenal syndrome; Z79.01 Long term (current) use of anticoagulants; G93.1 Anoxic brain damage, not elsewhere classified; N17.9 Acute kidney failure, unspecified; R55 Syncope and collapse; K74.60 Unspecified cirrhosis of liver; N18.9 Chronic kidney disease, unspecified; I82.721 Chronic embolism and thrombosis of deep veins of right upper extremity; I82.503 Chronic embolism and thrombosis of unspecified deep veins of lower extremity, bilateral; D61.818 Other pancytopenia; D63.8 Anemia in other chronic diseases classified elsewhere; D68.4 Acquired coagulation factor deficiency; I27.20 Pulmonary hypertension, unspecified
CPT/HCPCS: 36415; 70450; 71045; 80048; 80053; 81003; 82140; 82550; 82553; 83690; 83880; 84484; 85025; 87081; 87086; 87181; 93005; 99285